=== PATIENT | male | born 1950 | race Caucasian/White ===

== ENCOUNTER → 2017-10-24 15:38 | Outpatient (CLI) | payer MEDICARE, SELFPAY ==
[2017-10-24 16:29] LABS: International Normalized Ratio 2.1
== END ==
PROVIDERS: Family Provider Family Medicine; PCP Family Medicine; Visit Provider Internal Medicine Cardiovascular Disease
DX: I48.0 Paroxysmal atrial fibrillation (principal)
CPT/HCPCS: 85610

== ENCOUNTER → 2017-10-31 15:50 | Outpatient (CLI) | payer MEDICARE, SELFPAY ==
[2017-10-31 16:28] LABS: Calcium,Total 9.7 mg/dL (8.5-10.1)
[2017-10-31 16:35] LABS: International Normalized Ratio 2.1; Prothrombin Time (Protime)PT. 23.1 SECONDS (11.7-14.9)
== END ==
PROVIDERS: Family Provider Family Medicine; PCP Family Medicine; Visit Provider Family Medicine
DX: E83.52 Hypercalcemia (principal); I48.0 Paroxysmal atrial fibrillation
CPT/HCPCS: 82310; 85610

== ENCOUNTER → 2017-11-14 12:33 | Outpatient (CLI) | payer MEDICARE, SELFPAY ==
[2017-11-14 13:43] LABS: International Normalized Ratio 2.4; Prothrombin Time (Protime)PT. 26.1 SECONDS (11.7-14.9)
== END ==
PROVIDERS: Family Provider Family Medicine; PCP Family Medicine; Visit Provider Internal Medicine Cardiovascular Disease
DX: I48.0 Paroxysmal atrial fibrillation (principal)
CPT/HCPCS: 85610

== ENCOUNTER → 2017-11-27 12:12 | Outpatient (CLI) | payer MEDICARE, SELFPAY ==
[2017-11-27 12:32] LABS: Prothrombin Time (Protime)PT. 22.5 SECONDS (11.7-14.9)
== END ==
PROVIDERS: Family Provider Family Medicine; PCP Family Medicine; Visit Provider Internal Medicine Cardiovascular Disease
DX: I48.0 Paroxysmal atrial fibrillation (principal)
CPT/HCPCS: 85610

== ENCOUNTER → 2017-12-12 12:17 | Outpatient (CLI) | payer MEDICARE, SELFPAY ==
[2017-12-12 12:44] LABS: Albumin, Serum 3.6 g/dL (3.2-5.0); BUN 24 mg/dL (7-18); Calcium,Total 9.2 mg/dL (8.5-10.1); Chloride 109 mmol/L (98-107); Creatinine, Serum 1.71 mg/dL (0.70-1.30); EST Glomerular Filtration Rate 43 mL/min (>60); Est Glom Filt Rate - Afr Amer 52 mL/min (>60); Glucose 61 mg/dL (74-106); Phosphorus 2.8 mg/dL (2.5-4.9); Potassium 4.5 mmol/L (3.5-5.1); Sodium Level 142 mmol/L (136-145)
[2017-12-12 12:46] LABS: International Normalized Ratio 3.1; Prothrombin Time (Protime)PT. 32.1 SECONDS (11.7-14.9)
== END ==
PROVIDERS: Family Provider Family Medicine; PCP Family Medicine
DX: N18.3 Chronic kidney disease, stage 3 (moderate) (principal); E83.52 Hypercalcemia; I48.0 Paroxysmal atrial fibrillation
CPT/HCPCS: 80069; 85610

== ENCOUNTER 2018-01-11 05:28 | Observation (INO) | payer MEDICARE, SELFPAY ==
[2018-01-11] VITALS (19 sets, daily range): BP systolic 101–137; BP diastolic 48–77; PULSE 66–80; RESP 16–23; TEMP 36.3–37; O2SAT 95–99; BMI 35.5; BMI 33.6; BMI 33.7
--- NOTE | 2018-01-11 05:49 | EKG12_ITS ---
Test Reason : Blood Pressure : / mmHG Vent. Rate : 068 BPM Atrial Rate : 068 BPM P-R Int : 200 ms QRS Dur : 108 ms QT Int : 422 ms P-R-T Axes : 076 -41 044 degrees QTc Int : 448 ms Normal sinus rhythm Left axis deviation Incomplete left bundle branch block Abnormal ECG Confirmed by OSWALD BESS, STEPHANIE ([id number]), publishing editor BUTCH REED ([id number]) on 01/15/2018 1:59:36 PM Referred By: ARLET Confirmed By:STEPHANIE AKERS MD
--- NOTE | 2018-01-11 05:49 | CT_ITS ---
STUDY: CT BRAIN WITHOUT CONTRAST REASON FOR EXAM: Male, 67 years old. Right-sided weakness, facial droop, slurred speech. History of CVA, diabetes, hypertension and atrial fibrillation. RADIATION DOSAGE (If Supplied By Facility): CTDIvol = ( 44.99 ) mGy, DLP = ( 796.11 ) mGycm TECHNIQUE: Transaxial CT imaging of the brain was performed without administration of intravenous contrast material. Individualized dose optimization techniques were used for this CT. COMPARISON: None. FINDINGS: Normal soft tissue structures. Normal calvarium. There is mild cerebral atrophy with widening of the extra-axial spaces and ventricular dilatation. A focal zone with the decreased attenuation posteriorly in the right frontal lobe is demonstrated, consistent with old infarction. There are areas of decreased attenuation within the white matter tracts of the supratentorial brain, consistent with microvascular disease changes. There is no acute abnormality of the basal ganglia, thalami and brainstem. There is mild cerebellar atrophy. There is no intracranial hemorrhage. There are no findings of an acute ischemic infarction. Dense atherosclerotic calcification of the vertebrobasilar system. There is mucoperiosteal inflammatory disease of the ethmoid air cells consistent with mild sinusitis. CT/Brain/Head without Contrast IMPRESSION: 1. Chronic involutional and ischemic changes of the brain. 2. No acute intracranial pathology demonstrated. If there is continued clinical concern, follow-up with MRI exam is recommended. 3. Mild ethmoid sinusitis. Electronically Signed: Nisha Luna MD at 6:44 EDT Tel , Service support ,
--- NOTE | 2018-01-11 05:54 | ED.VIS.GEN ---
History of Present Illness Chief Complaint: Neuro S/Sx Informant: Patient, Family Onset: Hours - 1-2 Context: Sudden Onset - woke him up (and nearby ) Timing: Intermittent - x1, Lasts - about 1 hour Quality: aphasia, dysarthria, right facial droop, RUE weak Current Severity: Gone Maximum Severity: Severe Worsened by: nothing Relieved by: nothing in particular Narrative: Patient last seen normal at 1 AM, when he and his both fell asleep. He woke up at 355, confused, a phasic, dysarthria, right upper extremity weakness. Symptoms lasted about an hour and are now gone. Similar syndrome about a week ago, for which he was admitted to [facility], but family does not recall the term TIA or stroke. They state that he was taken off of his Coumadin, but think that was more related to the fact that he had a knee replacement 4 or 5 months ago on the right, and he had some abnormal bleeding into that area. He is on Coumadin for chronic atrial fibrillation. He has never had a disabling stroke with permanent effects. He states he feels fine and back to normal now. - Past Medical History (1) HTN (hypertension) Status: Chronic (2) TIA (transient ischemic attack) Status: Chronic (3) Chronic a-fib Status: Chronic (4) CKD (chronic kidney disease) Status: Chronic (5) Osteoarthritis Status: Chronic (6) Chronic low back pain Status: Chronic Past Medical History - Allergies and Home Meds Allergies/Adverse Reactions: Allergies furosemide [From Lasix] Allergy (Verified 01/11/18 05:30) Hives rofecoxib Allergy (Verified 01/11/18 05:30) Hives Home Medications: Home Medications Medication Instructions Recorded Amlodipine [Norvasc] 10 mg PO BID 01/11/18 Ascorbic Acid [Vitamin C with Vivian 500 mg PO BID 01/11/18 Hips] Aspirin [Aspirin EC] 162 mg PO DAILY 01/11/18 Carvedilol [Coreg] 25 mg PO BID 01/11/18 Fenofibrate [Fenoglide] 160 mg PO DAILY 01/11/18 Glipizide [Glucotrol Xl] 5 mg PO BID 01/11/18 Insulin Glargine [Lantus (BKC)] 22 units SC BID 01/11/18 Lovastatin [Mevacor] 40 mg PO QHS 01/11/18 Metformin HCl [Glucophage] 850 mg PO TIDCM 01/11/18 Multivitamin [Multiple Vitamins] 1 each PO DAILY 01/11/18 Quinapril HCl [Accupril] 20 mg PO QHS 01/11/18 Quinapril HCl [Accupril] 40 mg PO DAILY 01/11/18 Primary Care Physician: Lester Jarvis MD [Primary Care Provider] - Surgical History: total knee arthroplasty - bilat Lives: Spouse/ Significant Other Smoking Status: Never smoker Review of Systems All systems negative except as indicated Neurological: Reports: Weakness, - - speech trouble. Denies: Headache, Parasthesia, Numbness Physical Exam Vital Signs/Narrative: Vital Signs Temp Pulse Resp BP Pulse Ox 01/11/18 05:32 97.4 F L 69 23 H 111/59 L 99 Inital Vital Signs reviewed: Yes General: Well nourished, Well developed Head: Normocephalic, Atraumatic Eyes: Perrl, EOMI ENT: Moist mucous membranes, No rhinorrhea Neck: Supple, Nontender, No lymphadenopathy, No JVD, - - No carotid bruits bilaterally Cardiovascular: No murmurs, Irregular. Negative for: Tachycardia Respiratory: No distress, CTA bilaterally, Chest nontender Abdomen: Soft, Nontender, Nondistended, Normal bowel sounds Back: Nontender, Normal Inspection Extremities: Nontender, No edema Skin: Normal color, No rash Neurological: Alert, Oriented x3, Cranial nerves II-XII grossly intact, Normal Strength, Normal Sensation, Normal DTR, - - No aphasia or dysarthria. Correct month and age. No visual field deficit. No ataxia. Total NIHSS-0. Psychological: Normal affect Diagnostic/Tx/Re-eval Impressions Brain CT 01/11/18 05:49 IMPRESSION: 1. Chronic involutional and ischemic changes of the brain. 2. No acute intracranial pathology demonstrated. If there is continued clinical concern, follow-up with MRI exam is recommended. 3. Mild ethmoid sinusitis. Electronically Signed: Nisha Luna MD at 6:44 EDT Tel , Service support , Chest X-Ray 01/11/18 06:15 IMPRESSION: Borderline cardiomegaly and pulmonary interstitial edema, consistent with mild congestive heart failure. Clinical correlation is advised. Electronically Signed: Nisha Luna MD at 6:48 EDT Tel , Service support , 01/11/18 05:49 Brain/Head without Contrast [CT] Stat 01/11/18 06:15 Chest 1 View [RAD] Stat Laboratory Results 01/11/18 01/11/18 01/11/18 Range/Units 05:32 05:32 05:32 WBC 6.7 (4.4-11.0) K/mm3 RBC 2.69 L (4.6-6.2) M/mm3 Hgb 7.7 L (13.0-16.5) g/dl Hct 24.5 L (40-54) % MCV 91.1 (80-94) fL MCH 28.6 (27.0-32.0) pg MCHC 31.4 L (32-36) g/gl RDW 13.6 (11.6-14.6) % RDW Differential 45.5 H (35.1-43.9) fl Plt Count 476 H (150-450) K/mm3 MPV 10.1 (6.2-12.0) fl Immature Gran % (Auto) 0.100 (0.0-0.9) % Neut % (Auto) 80.2 H (47-70) % Lymph % (Auto) 9.0 L (19-41) % [place] % (Auto) 8.5 (0-10) % Eos % (Auto) 1.9 (0-5) % Baso % (Auto) 0.3 (0-1) % Absolute Neuts (auto) 5.4 (2.0-7.7) X10^3/uL Absolute Lymphs (auto) 0.60 L (0.83-4.51) X10^3/ul Total Counted Not Reportable Differential Comment PT 15.4 H (11.7-14.9) SECONDS INR 1.2 APTT 30.7 (24.1-36.2) Seconds Sodium 142 (136-145) mmol/L Potassium 4.7 (3.5-5.1) mmol/L Chloride 109 H (98-107) mmol/L Carbon Dioxide 25.0 (21.0-32.0) mmol/L Anion Gap 8 (5-15) BUN 38 H (7-18) mg/dL Creatinine 1.86 H (0.70-1.30) mg/dL Estim Creat Clear Calc 37.28 ml/min Est GFR (MDRD) Af Amer 47 L (>60) mL/min Est GFR (MDRD) Non-Af 39 L (>60) mL/min BUN/Creatinine Ratio 20.4 H (10-20) RATIO Glucose 92 (74-106) mg/dL Calcium 9.3 (8.5-10.1) mg/dL Troponin I 0.07 H (<0.06) ng/mL - Rhythm Strip Rhythm Strip: A-fib Rate: 85 Ectopy: None - EKG 1 Interpretation: Sinus Rhythm, No Acute Injury Pattern, LBBB - incomplete - Medical Decision Making With observation, patient had no recurrent stroke symptoms. Blood pressure now 137/77. His hemoglobin 7.7. He recently had echocardiogram, carotid Dopplers, we do not know the results of those, we have sent for them but have not received them yet. He states that at that time, a week ago, his hemoglobin was 7.4 and 7.5. He did not receive a blood transfusion. He has had iron infusions in the past, before his knee surgery. Discussed with Dr. Neal for admission, who advises holding off on blood transfusion at this time. Type and screen sent in case he ends up needing one. Will admit to PCU. Of note, his EKG shows sinus rhythm. He does have periods of frequent ectopy on the monitor. ED Disposition - Plan for ED Patient: Disposition: Acute Care Hospital [facility] Chief Complaint: Neuro S/Sx Diagnosis: CKD (chronic kidney disease), TIA (transient ischemic attack), Anemia, Paroxysmal atrial fibrillation
--- NOTE | 2018-01-11 06:02 | ED.DCSUM_ITS ---
History of Present Illness Chief Complaint: Neuro S/Sx Informant: Patient, Family Onset: Hours - 1-2 Context: Sudden Onset - woke him up (and nearby ) Timing: Intermittent - x1, Lasts - about 1 hour Quality: aphasia, dysarthria, right facial droop, RUE weak Current Severity: Gone Maximum Severity: Severe Worsened by: nothing Relieved by: nothing in particular Narrative: Patient last seen normal at 1 AM, when he and his both fell asleep. He woke up at 355, confused, a phasic, dysarthria, right upper extremity weakness. Symptoms lasted about an hour and are now gone. Similar syndrome about a week ago, for which he was admitted to [facility], but family does not recall the term TIA or stroke. They state that he was taken off of his Coumadin , but think that was more related to the fact that he had a knee replacement 4 or 5 months ago on the right, and he had some abnormal bleeding into that area. He is on Coumadin for chronic atrial fibrillation. He has never had a disabling stroke with permanent effects. He states he feels fine and back to normal now. - Past Medical History (1) HTN (hypertension) Status: Chronic (2) TIA (transient ischemic attack) Status: Chronic (3) Chronic a-fib Status: Chronic (4) CKD (chronic kidney disease) Status: Chronic (5) Osteoarthritis Status: Chronic (6) Chronic low back pain Status: Chronic Past Medical History - Allergies and Home Meds Allergies/Adverse Reactions: Allergies furosemide [From Lasix] Allergy (Verified 01/11/18 05:30) Hives rofecoxib Allergy (Verified 01/11/18 05:30) Hives Home Medications: Home Medications Medication Instructions Recorded Amlodipine [Norvasc] 10 mg PO BID 01/11/18 Ascorbic Acid [Vitamin C with Vivian 500 mg PO BID 01/11/18 Hips] Aspirin [Aspirin EC] 162 mg PO DAILY 01/11/18 Carvedilol [Coreg] 25 mg PO BID 01/11/18 Fenofibrate [Fenoglide] 160 mg PO DAILY 01/11/18 Glipizide [Glucotrol Xl] 5 mg PO BID 01/11/18 Insulin Glargine [Lantus (BKC)] 22 units SC BID 01/11/18 Lovastatin [Mevacor] 40 mg PO QHS 01/11/18 Metformin HCl [Glucophage] 850 mg PO TIDCM 01/11/18 Multivitamin [Multiple Vitamins] 1 each PO DAILY 01/11/18 Quinapril HCl [Accupril] 20 mg PO QHS 01/11/18 Quinapril HCl [Accupril] 40 mg PO DAILY 01/11/18 Primary Care Physician: Lester Jarvis MD [Primary Care Provider] - Surgical History: total knee arthroplasty - bilat Lives: Spouse/ Significant Other Smoking Status: Never smoker Review of Systems All systems negative except as indicated Neurological: Reports: Weakness, - - speech trouble. Denies: Headache, Parasthesia, Numbness Physical Exam Vital Signs/Narrative: Vital Signs Temp Pulse Resp BP Pulse Ox 01/11/18 05:32 97.4 F L 69 23 H 111/59 L 99 Inital Vital Signs reviewed: Yes General: Well nourished, Well developed Head: Normocephalic, Atraumatic Eyes: Perrl, EOMI ENT: Moist mucous membranes, No rhinorrhea Neck: Supple, Nontender, No lymphadenopathy, No JVD, - - No carotid bruits bilaterally Cardiovascular: No murmurs, Irregular. Negative for: Tachycardia Respiratory: No distress, CTA bilaterally, Chest nontender Abdomen: Soft, Nontender, Nondistended, Normal bowel sounds Back: Nontender, Normal Inspection Extremities: Nontender, No edema Skin: Normal color, No rash Neurological: Alert, Oriented x3, Cranial nerves II-XII grossly intact, Normal Strength, Normal Sensation, Normal DTR, - - No aphasia or dysarthria. Correct month and age. No visual field deficit. No ataxia. Total NIHSS-0. Psychological: Normal affect Diagnostic/Tx/Re-eval Impressions Brain CT 01/11/18 05:49 IMPRESSION: 1. Chronic involutional and ischemic changes of the brain. 2. No acute intracranial pathology demonstrated. If there is continued clinical concern, follow-up with MRI exam is recommended. 3. Mild ethmoid sinusitis. Electronically Signed: Nisha Luna MD at 6:44 EDT Tel , Service support , Chest X-Ray 01/11/18 06:15 IMPRESSION: Borderline cardiomegaly and pulmonary interstitial edema, consistent with mild congestive heart failure. Clinical correlation is advised. Electronically Signed: Nisha Luna MD at 6:48 EDT Tel , Service support , 01/11/18 05:49 Brain/Head without Contrast [CT] Stat 01/11/18 06:15 Chest 1 View [RAD] Stat Laboratory Results 01/11/18 01/11/18 01/11/18 Range/Units 05:32 05:32 05:32 WBC 6.7 (4.4-11.0) K/mm3 RBC 2.69 L (4.6-6.2) M/mm3 Hgb 7.7 L (13.0-16.5) g/dl Hct 24.5 L (40-54) % MCV 91.1 (80-94) fL MCH 28.6 (27.0-32.0) pg MCHC 31.4 L (32-36) g/gl RDW 13.6 (11.6-14.6) % RDW Differential 45.5 H (35.1-43.9) fl Plt Count 476 H (150-450) K/mm3 MPV 10.1 (6.2-12.0) fl Immature Gran % (Auto) 0.100 (0.0-0.9) % Neut % (Auto) 80.2 H (47-70) % Lymph % (Auto) 9.0 L (19-41) % [place] % (Auto) 8.5 (0-10) % Eos % (Auto) 1.9 (0-5) % Baso % (Auto) 0.3 (0-1) % Absolute Neuts (auto) 5.4 (2.0-7.7) X10^3/uL Absolute Lymphs (auto) 0.60 L (0.83-4.51) X10^3/ul Total Counted Not Reportable Differential Comment PT 15.4 H (11.7-14.9) SECONDS INR 1.2 APTT 30.7 (24.1-36.2) Seconds Sodium 142 (136-145) mmol/L Potassium 4.7 (3.5-5.1) mmol/L Chloride 109 H (98-107) mmol/L Carbon Dioxide 25.0 (21.0-32.0) mmol/L Anion Gap 8 (5-15) BUN 38 H (7-18) mg/dL Creatinine 1.86 H (0.70-1.30) mg/dL Estim Creat Clear Calc 37.28 ml/min Est GFR (MDRD) Af Amer 47 L (>60) mL/min Est GFR (MDRD) Non-Af 39 L (>60) mL/min BUN/Creatinine Ratio 20.4 H (10-20) RATIO Glucose 92 (74-106) mg/dL Calcium 9.3 (8.5-10.1) mg/dL Troponin I 0.07 H (<0.06) ng/mL - Rhythm Strip Rhythm Strip: A-fib Rate: 85 Ectopy: None - EKG 1 Interpretation: Sinus Rhythm, No Acute Injury Pattern, LBBB - incomplete - Medical Decision Making With observation, patient had no recurrent stroke symptoms. Blood pressure now 137/77. His hemoglobin 7.7. He recently had echocardiogram, carotid Dopplers, we do not know the results of those, we have sent for them but have not received them yet. He states that at that time, a week ago, his hemoglobin was 7.4 and 7.5. He did not receive a blood transfusion. He has had iron infusions in the past, before his knee surgery. Discussed with Dr. Neal for admission, who advises holding off on blood transfusion at this time. Type and screen sent in case he ends up needing one. Will admit to PCU. Of note, his EKG shows sinus rhythm. He does have periods of frequent ectopy on the monitor. ED Disposition - Plan for ED Patient: Disposition: Acute Care Hospital [facility] Chief Complaint: Neuro S/Sx Diagnosis: CKD (chronic kidney disease), TIA (transient ischemic attack), Anemia, Paroxysmal atrial fibrillation
[2018-01-11 06:05] LABS: Absolute Neutrophil Count 5.4 X10^3/uL (2.0-7.7); Basophil# 0.02 X10^3/uL; Basophil% 0.3 % (0-1); Differential Indicated SCAN CRITERIA MET; Eosinophil# 0.13 X10^3/uL; Eosinophils% 1.9 % (0-5); Hematocrit 24.5 % (40-54); Hemoglobin 7.7 g/dl (13.0-16.5); Mean Corp Hgb Conc 31.4 g/gl (32-36); Mean Corpuscular Hgb 28.6 pg (27.0-32.0); Mean Corpuscular Volume 91.1 fL (80-94); Mean Platelet Vol. 10.1 fl (6.2-12.0); Monocyte# 0.57 X10^3/uL; Monocyte% 8.5 % (0-10); Neutrophil # 5.36 X10^3/uL (2.7-7.7); Neutrophil % 80.2 % (47-70); POSITIVE COUNT NO; POSITIVE DIFFERENTIAL YES; POSITIVE MORPHOLOGY NO; Platelet Count 476 K/mm3 (150-450); RBC Distribution Width CV 13.6 % (11.6-14.6); RBC Distribution Width SD 45.5 fl (35.1-43.9); Red Blood Count 2.69 M/mm3 (4.6-6.2); White Blood Count 6.7 K/mm3 (4.4-11.0)
--- NOTE | 2018-01-11 06:15 | RAD_ITS ---
STUDY: X-RAY CHEST REASON FOR EXAM: Male, 67 years old. Slurred speech, facial droop, right-sided weakness. TECHNIQUE: Single AP portable view of the chest. COMPARISON: None. FINDINGS: Intraspinal electrode leads are seen below the level of the edmundo. EKG leads overlies the chest. The lungs are adequately expanded. Bilaterally perihilar patchy pulmonary parenchymal interstitial opacities are present. There is a mildly elevated right hemidiaphragm There is borderline cardiomegaly. Normal mediastinum and daniel. There is prominence of the pulmonary hilar arteries and peripheral pulmonary arteries. Normal visualized aortic arch and descending thoracic aorta. Normal visualized ribs, clavicles, and shoulders. There is no demonstrated abnormality of the visualized soft tissue structures of the upper abdomen. RAD/Chest 1 View IMPRESSION: Borderline cardiomegaly and pulmonary interstitial edema, consistent with mild congestive heart failure. Clinical correlation is advised. Electronically Signed: Nisha Luna MD at 6:48 EDT Tel , Service support ,
[2018-01-11 06:17] LABS: International Normalized Ratio 1.2; Prothrombin Time (Protime)PT. 15.4 SECONDS (11.7-14.9)
[2018-01-11 06:18] LABS: Partial Thromboplast Time 30.7 Seconds (24.1-36.2)
[2018-01-11 06:26] LABS: Anion Gap 8 (5-15); BUN 38 mg/dL (7-18); BUN/Creat Ratio 20.4 RATIO (10-20); Calcium,Total 9.3 mg/dL (8.5-10.1); Chloride 109 mmol/L (98-107); Creatinine, Serum 1.86 mg/dL (0.70-1.30); EST Glomerular Filtration Rate 39 mL/min (>60); Est Glom Filt Rate - Afr Amer 47 mL/min (>60); Estimated Creatinine Clearance 37.28 ml/min; Glucose 92 mg/dL (74-106); Potassium 4.7 mmol/L (3.5-5.1); Sodium Level 142 mmol/L (136-145)
--- NOTE | 2018-01-11 07:24 | NURSING ---
DR COOK IN ER
--- NOTE | 2018-01-11 07:51 | PCM.HP.STD ---
Problem List (1) CKD (chronic kidney disease), stage III Status: Acute (2) HTN (hypertension) Status: Chronic (3) TIA (transient ischemic attack) Status: Chronic (4) Osteoarthritis Status: Chronic (5) Chronic low back pain Status: Chronic (6) Anemia Status: Acute (7) Paroxysmal atrial fibrillation Status: Acute History of Present Illness Date of Admission: 01/11/18 Chief Complaint: slurred speech. right sided weakness. The patient is a 67 year old M who is in his normal state of health but awoke this morning with slurred speech and right arm weakness. This happened roughly around 3 AM. Symptoms lasted for an hour then completely resolved. Patient presented to the emergency room and had a workup which was unremarkable. Patient had symptoms similar to this on January 03 and was evaluated at the [facility] by [facility]. Patient underwent an echocardiogram, carotid ultrasound and additional blood work that was unremarkable. Patient was told he was not given a diagnosis and discharged. Patient states that the day before, he had developed some pain in his knee. Actually the pain began 01 January when he is coming back from [place]. Patient denies any injuries or any, trauma to that knee. Patient did have arthrocentesis that showed gelatinous blood. Patient had a CAT scan that was concerning for hemarthrosis. Patient was advised to stay off of his Coumadin. Patient's INR on arrival, according to his , was 2.4. Patient was instructed to stay off of Coumadin given the hemarthrosis. Today patient's INR is 1.2. [] Past Medical History Past Medical History (Chronic Problems): Chronic Problems HTN (hypertension) (Chronic) TIA (transient ischemic attack) (Chronic) Chronic a-fib (Chronic) CKD (chronic kidney disease) (Chronic) Osteoarthritis (Chronic) Chronic low back pain (Chronic) Allergies furosemide [From Lasix] Allergy (Verified 01/11/18 05:30) Hives rofecoxib Allergy (Verified 01/11/18 05:30) Hives Home Medications: Ambulatory Orders Medication Instructions Recorded Amlodipine [Norvasc] 10 mg PO BID 01/11/18 Ascorbic Acid [Vitamin C with Vivian 500 mg PO BID 01/11/18 Hips] Aspirin [Aspirin EC] 162 mg PO DAILY 01/11/18 Carvedilol [Coreg] 25 mg PO BID 01/11/18 Fenofibrate [Fenoglide] 160 mg PO DAILY 01/11/18 Glipizide [Glucotrol Xl] 5 mg PO BID 01/11/18 Insulin Glargine [Lantus (BKC)] 22 units SC BID 01/11/18 Lovastatin [Mevacor] 40 mg PO QHS 01/11/18 Metformin HCl [Glucophage] 850 mg PO TIDCM 01/11/18 Multivitamin [Multiple Vitamins] 1 each PO DAILY 01/11/18 Quinapril HCl [Accupril] 20 mg PO QHS 01/11/18 Quinapril HCl [Accupril] 40 mg PO DAILY 01/11/18 Surgical History: total knee arthroplasty - bilat Psychiatric History: No pertinent psych hx Lives: Spouse/ Significant Other Smoking Status: Never smoker - *Family History Sibling History Items: Stroke Review of Systems Constitutional: Denies: Chills, Fever, Weight Change Eyes: Denies: Blurred vision, Drainage HEENT: Denies: Head Aches, Sinus Congestion, Sinus Drainage Cardiovascular: Denies: Chest Pain, Palpitations Respiratory: Denies: Cough, Shortness of breath at rest, Sputum production Gastrointestinal: Denies: Abdominal Pain, Nausea, Vomiting Genitourinary: Denies: Dysuria Musculoskeletal: Denies: Joint Pain, Joint Tenderness Skin: Denies: Rash, Wounds Neurological: Reports: Slurred speech, Focal weakness Psychiatric: Denies: Anxiety, Depression Endocrine: Denies: Change in Body Habitus Hematologic/ Lymphatic: Reports: Easy Bleeding. Denies: Easy Bruising, Hx of blood clot VTE Information - Inpt Only VTE Present on Admission: No VTE Mechan Device Prophylaxis: SCD's VTE Pharm Prophylaxis ordered?: No Reason prophylaxis not ordered:: Medical Contraindication Patient Problems: Active and Suspected Problems Anemia (Acute) Paroxysmal atrial fibrillation (Acute) CKD (chronic kidney disease), stage III (Acute) - Physical Exam General: Alert, Cooperative, No apparent distress HEENT: Atraumatic, Normocephalic Neck: No Nodes, Thyroid Normal Size and Texture Lungs: Clear to auscultation, Normal air movement, No rhonchi, No wheeze Cardiovascular: Regular rate, Regular Rhythm, Normal S1, Normal S2, No murmurs Abdomen: Bowel Sounds Present, Soft, Non Tender, Non-Distended, No Hepato-splenomegaly, Passing Flatus Extremities: No edema, No Calf Tenderness Skin: No rashes, No breakdown Musculoskeletal: No Muscle Wasting, - - Some tenderness to palpation of the right knee. Minimal joint effusion. No warmth. Neurological: Cranial nerves II-XII grossly intact, Neuro grossly intact, Motor Exam 5/5 strength throughout Psych/Mental Status: Normal Affect, Appropriate Vital Signs Temp Pulse Resp BP Pulse Ox 37.0 C 70 17 137/77 H 98 01/11/18 06:57 01/11/18 07:09 01/11/18 07:09 01/11/18 07:09 01/11/18 07:09 Oxygen Flow Rate (L/min) 2 Oxygen Delivery Method Room Air Weight: 106 kg Body Mass Index (BMI) 35.5 Finger Stick Blood Glucose 78 Laboratory Tests Past 24 Hrs 01/11/18 01/11/18 01/11/18 05:32 05:32 05:32 WBC 6.7 RBC 2.69 L Hgb 7.7 L Hct 24.5 L MCV 91.1 MCH 28.6 MCHC 31.4 L RDW 13.6 RDW Differential 45.5 H Plt Count 476 H MPV 10.1 Immature Gran % (Auto) 0.100 Neut % (Auto) 80.2 H Lymph % (Auto) 9.0 L [place] % (Auto) 8.5 Eos % (Auto) 1.9 Baso % (Auto) 0.3 Absolute Neuts (auto) 5.4 Absolute Lymphs (auto) 0.60 L Total Counted Not Reportable Differential Comment PT 15.4 H INR 1.2 APTT 30.7 Sodium 142 Potassium 4.7 Chloride 109 H Carbon Dioxide 25.0 Anion Gap 8 BUN 38 H Creatinine 1.86 H Estim Creat Clear Calc 37.28 Est GFR (MDRD) Af Amer 47 L Est GFR (MDRD) Non-Af 39 L BUN/Creatinine Ratio 20.4 H Glucose 92 Calcium 9.3 Troponin I 0.07 H Blood Type Antibody Screen 01/11/18 07:25 WBC RBC Hgb Hct MCV MCH MCHC RDW RDW Differential Plt Count MPV Immature Gran % (Auto) Neut % (Auto) Lymph % (Auto) [place] % (Auto) Eos % (Auto) Baso % (Auto) Absolute Neuts (auto) Absolute Lymphs (auto) Total Counted Differential Comment PT INR APTT Sodium Potassium Chloride Carbon Dioxide Anion Gap BUN Creatinine Estim Creat Clear Calc Est GFR (MDRD) Af Amer Est GFR (MDRD) Non-Af BUN/Creatinine Ratio Glucose Calcium Troponin I Blood Type Pending Antibody Screen Pending Clinical Impression(s) from Imaging Studies Brain CT 01/11/18 05:49 IMPRESSION: 1. Chronic involutional and ischemic changes of the brain. 2. No acute intracranial pathology demonstrated. If there is continued clinical concern, follow-up with MRI exam is recommended. 3. Mild ethmoid sinusitis. Electronically Signed: Nisha Luna MD at 6:44 EDT Tel , Service support , Chest X-Ray 01/11/18 06:15 IMPRESSION: Borderline cardiomegaly and pulmonary interstitial edema, consistent with mild congestive heart failure. Clinical correlation is advised. Electronically Signed: Nisha Luna MD at 6:48 EDT Tel , Service support , Patient had carotid ultrasound performed at [facility] that showed no significant stenosis. Echocardiogram performed there showed an ejection fraction of 50%. Assessment/Plan Active and Suspected Problems Anemia (Acute) Paroxysmal atrial fibrillation (Acute) CKD (chronic kidney disease), stage III (Acute) 1. Transient ischemic attack The possibilities could be atypical seizures patient was not having headache with this. Patient has already undergone a workup at [facility] for this very issue and which came back negative except for showing an old lacunar infarct. Patient does have paroxysmal atrial fibrillation and was actually on Coumadin when he arrived with an INR of 2.4. Patient has been subsequently taken off of his Coumadin given the hemarthrosis that he had developed. Patient is on aspirin and lovastatin. Will do neuro checks, have bedside swallow evaluation and consult neurology for further evaluation. Patient is not a candidate for MRIs given spinal stimulator nor is he a candidate for CT angiogram given his chronic kidney disease 2. Hemarthrosis, right knee Story the patient provides, sounds atraumatic. But certainly exacerbated by his Coumadin if it was therapeutic or not. Patient has been advised to stay off of Coumadin at this time Patient has a follow-up appointment with his orthopedic surgeon on 23 January 3. Paroxysmal atrial fibrillation I reviewed the patient's echo report on the patient's 's MyChart and did not see any obvious valvular abnormalities that would prohibit novel 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s. Patient follows with Dr. Perez and patient states that that was never discussed. 4. DVT prophylaxis: SCDs. Code Visit OBSV E&M: [id number] Initial observation care L3
--- NOTE | 2018-01-11 07:53 | NURSING ---
121 TIA OBS JOYCE
--- NOTE | 2018-01-11 08:00 | HP.PCM_ITS ---
Problem List (1) CKD (chronic kidney disease), stage III Status: Acute (2) HTN (hypertension) Status: Chronic (3) TIA (transient ischemic attack) Status: Chronic (4) Osteoarthritis Status: Chronic (5) Chronic low back pain Status: Chronic (6) Anemia Status: Acute (7) Paroxysmal atrial fibrillation Status: Acute History of Present Illness Date of Admission: 01/11/18 Chief Complaint: slurred speech. right sided weakness. The patient is a 67 year old M who is in his normal state of health but awoke this morning with slurred speech and right arm weakness. This happened roughly around 3 AM. Symptoms lasted for an hour then completely resolved. Patient presented to the emergency room and had a workup which was unremarkable. Patient had symptoms similar to this on January 03 and was evaluated at the [facility] by [facility]. Patient underwent an echocardiogram, carotid ultrasound and additional blood work that was unremarkable. Patient was told he was not given a diagnosis and discharged. Patient states that the day before, he had developed some pain in his knee. Actually the pain began 01 January when he is coming back from [place]. Patient denies any injuries or any, trauma to that knee. Patient did have arthrocentesis that showed gelatinous blood. Patient had a CAT scan that was concerning for hemarthrosis. Patient was advised to stay off of his Coumadin. Patient's INR on arrival, according to his , was 2.4. Patient was instructed to stay off of Coumadin given the hemarthrosis. Today patient's INR is 1.2. [] Past Medical History Past Medical History (Chronic Problems): Chronic Problems HTN (hypertension) (Chronic) TIA (transient ischemic attack) (Chronic) Chronic a-fib (Chronic) CKD (chronic kidney disease) (Chronic) Osteoarthritis (Chronic) Chronic low back pain (Chronic) Allergies furosemide [From Lasix] Allergy (Verified 01/11/18 05:30) Hives rofecoxib Allergy (Verified 01/11/18 05:30) Hives Home Medications: Ambulatory Orders Medication Instructions Recorded Amlodipine [Norvasc] 10 mg PO BID 01/11/18 Ascorbic Acid [Vitamin C with Vivian 500 mg PO BID 01/11/18 Hips] Aspirin [Aspirin EC] 162 mg PO DAILY 01/11/18 Carvedilol [Coreg] 25 mg PO BID 01/11/18 Fenofibrate [Fenoglide] 160 mg PO DAILY 01/11/18 Glipizide [Glucotrol Xl] 5 mg PO BID 01/11/18 Insulin Glargine [Lantus (BKC)] 22 units SC BID 01/11/18 Lovastatin [Mevacor] 40 mg PO QHS 01/11/18 Metformin HCl [Glucophage] 850 mg PO TIDCM 01/11/18 Multivitamin [Multiple Vitamins] 1 each PO DAILY 01/11/18 Quinapril HCl [Accupril] 20 mg PO QHS 01/11/18 Quinapril HCl [Accupril] 40 mg PO DAILY 01/11/18 Surgical History: total knee arthroplasty - bilat Psychiatric History: No pertinent psych hx Lives: Spouse/ Significant Other Smoking Status: Never smoker - *Family History Sibling History Items: Stroke Review of Systems Constitutional: Denies: Chills, Fever, Weight Change Eyes: Denies: Blurred vision, Drainage HEENT: Denies: Head Aches, Sinus Congestion, Sinus Drainage Cardiovascular: Denies: Chest Pain, Palpitations Respiratory: Denies: Cough, Shortness of breath at rest, Sputum production Gastrointestinal: Denies: Abdominal Pain, Nausea, Vomiting Genitourinary: Denies: Dysuria Musculoskeletal: Denies: Joint Pain, Joint Tenderness Skin: Denies: Rash, Wounds Neurological: Reports: Slurred speech, Focal weakness Psychiatric: Denies: Anxiety, Depression Endocrine: Denies: Change in Body Habitus Hematologic/ Lymphatic: Reports: Easy Bleeding. Denies: Easy Bruising, Hx of blood clot VTE Information - Inpt Only VTE Present on Admission: No VTE Mechan Device Prophylaxis: SCD's VTE Pharm Prophylaxis ordered?: No Reason prophylaxis not ordered:: Medical Contraindication Patient Problems: Active and Suspected Problems Anemia (Acute) Paroxysmal atrial fibrillation (Acute) CKD (chronic kidney disease), stage III (Acute) - Physical Exam General: Alert, Cooperative, No apparent distress HEENT: Atraumatic, Normocephalic Neck: No Nodes, Thyroid Normal Size and Texture Lungs: Clear to auscultation, Normal air movement, No rhonchi, No wheeze Cardiovascular: Regular rate, Regular Rhythm, Normal S1, Normal S2, No murmurs Abdomen: Bowel Sounds Present, Soft, Non Tender, Non-Distended, No Hepato- splenomegaly, Passing Flatus Extremities: No edema, No Calf Tenderness Skin: No rashes, No breakdown Musculoskeletal: No Muscle Wasting, - - Some tenderness to palpation of the right knee. Minimal joint effusion. No warmth. Neurological: Cranial nerves II-XII grossly intact, Neuro grossly intact, Motor Exam 5/5 strength throughout Psych/Mental Status: Normal Affect, Appropriate Vital Signs Temp Pulse Resp BP Pulse Ox 37.0 C 70 17 137/77 H 98 01/11/18 06:57 01/11/18 07:09 01/11/18 07:09 01/11/18 07:09 01/11/18 07:09 Oxygen Flow Rate (L/min) 2 Oxygen Delivery Method Room Air Weight: 106 kg Body Mass Index (BMI) 35.5 Finger Stick Blood Glucose 78 Laboratory Tests Past 24 Hrs 01/11/18 01/11/18 01/11/18 05:32 05:32 05:32 WBC 6.7 RBC 2.69 L Hgb 7.7 L Hct 24.5 L MCV 91.1 MCH 28.6 MCHC 31.4 L RDW 13.6 RDW Differential 45.5 H Plt Count 476 H MPV 10.1 Immature Gran % (Auto) 0.100 Neut % (Auto) 80.2 H Lymph % (Auto) 9.0 L [place] % (Auto) 8.5 Eos % (Auto) 1.9 Baso % (Auto) 0.3 Absolute Neuts (auto) 5.4 Absolute Lymphs (auto) 0.60 L Total Counted Not Reportable Differential Comment PT 15.4 H INR 1.2 APTT 30.7 Sodium 142 Potassium 4.7 Chloride 109 H Carbon Dioxide 25.0 Anion Gap 8 BUN 38 H Creatinine 1.86 H Estim Creat Clear Calc 37.28 Est GFR (MDRD) Af Amer 47 L Est GFR (MDRD) Non-Af 39 L BUN/Creatinine Ratio 20.4 H Glucose 92 Calcium 9.3 Troponin I 0.07 H Blood Type Antibody Screen 01/11/18 07:25 WBC RBC Hgb Hct MCV MCH MCHC RDW RDW Differential Plt Count MPV Immature Gran % (Auto) Neut % (Auto) Lymph % (Auto) Morgan % (Auto) Eos % (Auto) Baso % (Auto) Absolute Neuts (auto) Absolute Lymphs (auto) Total Counted Differential Comment PT INR APTT Sodium Potassium Chloride Carbon Dioxide Anion Gap BUN Creatinine Estim Creat Clear Calc Est GFR (MDRD) Af Amer Est GFR (MDRD) Non-Af BUN/Creatinine Ratio Glucose Calcium Troponin I Blood Type Pending Antibody Screen Pending Clinical Impression(s) from Imaging Studies Brain CT 01/11/18 05:49 IMPRESSION: 1. Chronic involutional and ischemic changes of the brain. 2. No acute intracranial pathology demonstrated. If there is continued clinical concern, follow-up with MRI exam is recommended. 3. Mild ethmoid sinusitis. Electronically Signed: Nisha Luna MD at 6:44 EDT Tel , Service support , Chest X-Ray 01/11/18 06:15 IMPRESSION: Borderline cardiomegaly and pulmonary interstitial edema, consistent with mild congestive heart failure. Clinical correlation is advised. Electronically Signed: Nisha Luna MD at 6:48 EDT Tel , Service support , Patient had carotid ultrasound performed at [facility] that showed no significant stenosis. Echocardiogram performed there showed an ejection fraction of 50%. Assessment/Plan Active and Suspected Problems Anemia (Acute) Paroxysmal atrial fibrillation (Acute) CKD (chronic kidney disease), stage III (Acute) 1. Transient ischemic attack * The possibilities could be atypical seizures patient was not having headache with this. * Patient has already undergone a workup at [facility] for this very issue and which came back negative except for showing an old lacunar infarct. * Patient does have paroxysmal atrial fibrillation and was actually on Coumadin when he arrived with an INR of 2.4. Patient has been subsequently taken off of his Coumadin given the hemarthrosis that he had developed. * Patient is on aspirin and lovastatin. * Will do neuro checks, have bedside swallow evaluation and consult neurology for further evaluation. * Patient is not a candidate for MRIs given spinal stimulator nor is he a candidate for CT angiogram given his chronic kidney disease 2. Hemarthrosis, right knee * Story the patient provides, sounds atraumatic. But certainly exacerbated by his Coumadin if it was therapeutic or not. * Patient has been advised to stay off of Coumadin at this time * Patient has a follow-up appointment with his orthopedic surgeon on 23 January 3. Paroxysmal atrial fibrillation * I reviewed the patient's echo report on the patient's 's MyChart and did not see any obvious valvular abnormalities that would prohibit novel 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s. Patient follows with Dr. Perez and patient states that that was never discussed. 4. DVT prophylaxis: SCDs. Code Visit OBSV E&M: [id number] Initial observation care L3
[2018-01-11] MEDS: Ascorbic Acid 500 MG Tablet PO ×2 (09:48→21:42)
[2018-01-11] MEDS: Lisinopril 40 MG Tablet PO (09:48)
[2018-01-11] MEDS: Fenofibrate 145 MG Tablet PO (09:48)
[2018-01-11] MEDS: amLODIPine 10 MG Tablet PO ×2 (09:48→21:42)
[2018-01-11] MEDS: Aspirin E.C. 81 MG Tablet 162 MG PO (09:49)
[2018-01-11] MEDS: Multivitamins,Therapeutic Tablet 1 TABLET PO (09:49)
[2018-01-11] MEDS: Carvedilol 25 MG Tablet PO ×2 (09:49→21:42)
[2018-01-11] MEDS: Glucerna Shake 120 ML LIQUID PO (09:51)
[2018-01-11 11:11] LABS: Bedside Glucose 62 mg/dL (70-110)
[2018-01-11 11:11] LABS: Bedside Glucose 52 mg/dL (70-110)
[2018-01-11 11:11] LABS: Bedside Glucose 88 mg/dL (70-110)
[2018-01-11 16:45] LABS: Bedside Glucose 117 mg/dL (70-110)
[2018-01-11] MEDS: glipiZIDE 5 MG Tablet PO (16:46)
[2018-01-11] MEDS: 0.9% NaCl Peripheral Flush Adult/Peds IV (21:42)
[2018-01-11] MEDS: Lisinopril 20 MG Tablet PO (21:43)
[2018-01-11] MEDS: Atorvastatin Calcium 10 MG Tablet PO (21:43)
[2018-01-11 23:16] LABS: Bedside Glucose 66 mg/dL (70-110)
[2018-01-11 23:16] LABS: Bedside Glucose 65 mg/dL (70-110)
[2018-01-11 23:16] LABS: Bedside Glucose 66 mg/dL (70-110)
[2018-01-12 00:12] LABS: Glucose 70 mg/dL (74-106)
[2018-01-12 00:20] VITALS: BP 112/66; PULSE 74; RESP 18; TEMP 37; O2SAT 95
[2018-01-12 00:27] VITALS: O2SAT 95
[2018-01-12 03:00] VITALS: PULSE 72
[2018-01-12 04:20] VITALS: BP 124/63; PULSE 73; RESP 20; TEMP 36.9; O2SAT 97
[2018-01-12 04:26] LABS: Bedside Glucose 106 mg/dL (70-110)
[2018-01-12 06:50] LABS: Bedside Glucose 143 mg/dL (70-110)
[2018-01-12 07:02] VITALS: PULSE 74
[2018-01-12 07:20] LABS: Hematocrit 23.6 % (40-54); Hemoglobin 7.3 g/dl (13.0-16.5); Mean Corp Hgb Conc 30.9 g/gl (32-36); Mean Corpuscular Hgb 28.5 pg (27.0-32.0); Mean Corpuscular Volume 92.2 fL (80-94); Mean Platelet Vol. 10.8 fl (6.2-12.0); Platelet Count 446 K/mm3 (150-450); RBC Distribution Width CV 13.1 % (11.6-14.6); RBC Distribution Width SD 42.5 fl (35.1-43.9); Red Blood Count 2.56 M/mm3 (4.6-6.2); White Blood Count 5.9 K/mm3 (4.4-11.0)
[2018-01-12 07:21] LABS: Scan Indicated on CBC? Y/N NO
[2018-01-12 07:37] LABS: Anion Gap 9 (5-15); BUN 33 mg/dL (7-18); BUN/Creat Ratio 18.9 RATIO (10-20); Chloride 111 mmol/L (98-107); Creatinine, Serum 1.75 mg/dL (0.70-1.30); EST Glomerular Filtration Rate 41 mL/min (>60); Est Glom Filt Rate - Afr Amer 50 mL/min (>60); Estimated Creatinine Clearance 40.96 ml/min; Glucose 128 mg/dL (74-106); Potassium 4.6 mmol/L (3.5-5.1); Sodium Level 143 mmol/L (136-145)
[2018-01-12 08:20] VITALS: BP 122/54; PULSE 73; RESP 16; TEMP 36.7; O2SAT 96
[2018-01-12] MEDS: glipiZIDE 5 MG Tablet PO (08:26)
[2018-01-12] MEDS: Aspirin E.C. 81 MG Tablet 162 MG PO (08:27)
[2018-01-12] MEDS: Multivitamins,Therapeutic Tablet 1 TABLET PO (08:27)
[2018-01-12] MEDS: Carvedilol 25 MG Tablet PO (08:27)
[2018-01-12] MEDS: amLODIPine 10 MG Tablet PO (08:28)
[2018-01-12] MEDS: Ascorbic Acid 500 MG Tablet PO (08:29)
[2018-01-12] MEDS: Lisinopril 40 MG Tablet PO (08:29)
[2018-01-12] MEDS: Fenofibrate 145 MG Tablet PO (08:29)
--- NOTE | 2018-01-12 10:11 | PCM.PN.HOSP ---
Patient Problems: Active and Suspected Problems Anemia (Acute) Paroxysmal atrial fibrillation (Acute) CKD (chronic kidney disease), stage III (Acute) Subjective: . Denies any new complaints at this time. Vitals/I&O's: Vital Signs Temp Pulse Resp BP Pulse Ox 36.7 C 73 16 122/54 H 96 01/12/18 08:20 01/12/18 08:20 01/12/18 08:20 01/12/18 08:20 01/12/18 08:20 Oxygen Delivery Method Room Air Weight: 103.4 kg Body Mass Index (BMI) 33.6 Intake and Output for Last 24 Hours 01/10/18 01/11/18 01/12/18 23:59 23:59 23:59 Intake Total 1290 / 1290 680 / 680 Output Total 920 / 920 500 / 500 Balance 370 / 370 180 / 180 General: Alert, Cooperative, No apparent distress HEENT: Atraumatic, Normocephalic Neurological: Motor Exam 5/5 strength throughout Laboratory Results 01/11/18 08:51: POC Glucose 52 L 01/11/18 09:45: POC Glucose 62 L 01/11/18 11:04: POC Glucose 88 01/11/18 16:41: POC Glucose 117 H 01/11/18 21:38: POC Glucose 65 L 01/11/18 22:36: POC Glucose 66 L 01/11/18 23:12: POC Glucose 66 L 01/11/18 23:43: Glucose 70 L 01/12/18 04:06: POC Glucose 106 01/12/18 06:18: Sodium 143, Potassium 4.6, Chloride 111 H, Carbon Dioxide 23.0, Anion Gap 9, BUN 33 H, Creatinine 1.75 H, Estim Creat Clear Calc 40.96, Est GFR (MDRD) Af Amer 50 L, Est GFR (MDRD) Non-Af 41 L, BUN/Creatinine Ratio 18.9, Glucose 128 H, Calcium 9.0 01/12/18 06:18: WBC 5.9, RBC 2.56 L, Hgb 7.3 L, Hct 23.6 L, MCV 92.2, MCH 28.5, MCHC 30.9 L, RDW 13.1, RDW Differential 42.5, Plt Count 446, MPV 10.8 01/12/18 06:43: POC Glucose 143 H Current Medications Acetaminophen (Tylenol) 650 mg PO Q4H PRN PRN PRN Reason: Headache/Temp>99F Acetaminophen (Tylenol) 650 mg RECTAL Q4H PRN PRN PRN Reason: Headache/Temp>99F Amlodipine Besylate (Norvasc) 10 mg PO BID [facility] Last Admin: 01/12/18 08:28 Dose: 10 mg Ascorbic Acid (Vitamin C) 500 mg PO BID [facility] Last Admin: 01/12/18 08:29 Dose: 500 mg Aspirin (Ecotrin) 162 mg PO DAILY [facility] Last Admin: 01/12/18 08:27 Dose: 162 mg Atorvastatin Calcium (Lipitor) 10 mg PO QHS [facility] Last Admin: 01/11/18 21:43 Dose: 10 mg Carvedilol (Coreg) 25 mg PO BID [facility] Last Admin: 01/12/18 08:27 Dose: 25 mg Fenofibrate (Tricor) 145 mg PO DAILY [facility] Last Admin: 01/12/18 08:29 Dose: 145 mg Insulin Detemir (Levemir (Bkc)) 22 units SC BID [facility] Last Admin: 01/12/18 08:27 Dose: 22 u Lisinopril (Zestril) 20 mg PO QHS [facility] Last Admin: 01/11/18 21:43 Dose: 20 mg Lisinopril (Zestril) 40 mg PO DAILY [facility] Last Admin: 01/12/18 08:29 Dose: 40 mg Magnesium Hydroxide (Milk Of Magnesia) 30 ml PO DAILY PRN PRN Reason: Constipation Multivitamins (Multivitamin) 1 tablet PO DAILY@0800 [facility] Last Admin: 01/12/18 08:27 Dose: 1 tablet Sodium Chloride () 5 - 30 ml IV UD PRN PRN Reason: SALINE FLUSH Last Admin: 01/11/18 21:42 Dose: 10 ml Medical Necessity - Tobacco Use Smoking Status: Never smoker Assessment/Plan Active and Suspected Problems Anemia (Acute) Paroxysmal atrial fibrillation (Acute) CKD (chronic kidney disease), stage III (Acute) 1. Suspected symptomatic hypoglycemia Reviewed the limited medical records from the [facility]. From what I could tell the patient was having issues with hypoglycemia at home and patient did note that his blood sugar did drop down to 37 on January 03. In that they did a workup. Per that workup saw that he had an old stroke and so they further work that up with an echocardiogram and carotid ultrasound which were both negative. Patient since being here has had low blood sugars in the 50s and 60s. Is my feeling that the symptoms are probably hypoglycemic related. Of note, patient's INR was 3.1 when he presented to [facility] by [facility]. Patient had a subtherapeutic INR because he is actually not been taking his Coumadin given the hemarthrosis of his right knee. I have advised the patient to resume Coumadin. Patient will have INR checks later on this week and then next week. The possibilities could be atypical seizures patient was not having headache with this. Patient is not a candidate for MRIs given spinal stimulator nor is he a candidate for CT angiogram given his chronic kidney disease 2. Hemarthrosis, right knee Story the patient provides, sounds atraumatic. But certainly exacerbated by his Coumadin if it was therapeutic or not. Patient has been advised to stay off of Coumadin at this time Patient has a follow-up appointment with his orthopedic surgeon on 23 January 3. Paroxysmal atrial fibrillation I reviewed the patient's echo report on the patient's 's MyChart and did not see any obvious valvular abnormalities that would prohibit novel 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s. Patient follows with Dr. Perez and patient states that that was never discussed. Given the hemarthrosis that the patient has a would recommend Coumadin for now just for reversal if deemed necessary. 4. Chronic stroke Noted on CAT scan from [place] Continue with aspirin and statin. Additionally continue with anticoagulation. Going back on Coumadin would recommend changing aspirin to 81 daily. Since the patient's bleeding has stopped I feel that the risks of not being on Coumadin outweigh the benefits at this time. I have instructed the patient to resume Coumadin. 5. Diabetes mellitus type II And noted hypoglycemia. I feel that the oral hypoglycemics are contributing to this and I would recommend the patient just continue with just the Levemir for now. Is not an ideal regiment understandably but I feel that the risk of further hypoglycemia with the oral agents outweigh the benefits of strict glycemic control. I have I recommend patient follow-up with his primary care doctor in regards to pursuing possible prandial dosings of NovoLog if necessary depending on how his blood sugars return clerk. 6. DVT prophylaxis: SCDs.
--- NOTE | 2018-01-12 10:19 | PN_ITS ---
Patient Problems: Active and Suspected Problems Anemia (Acute) Paroxysmal atrial fibrillation (Acute) CKD (chronic kidney disease), stage III (Acute) Subjective: . Denies any new complaints at this time. Vitals/I&O's: Vital Signs Temp Pulse Resp BP Pulse Ox 36.7 C 73 16 122/54 H 96 01/12/18 08:20 01/12/18 08:20 01/12/18 08:20 01/12/18 08:20 01/12/18 08:20 Oxygen Delivery Method Room Air Weight: 103.4 kg Body Mass Index (BMI) 33.6 Intake and Output for Last 24 Hours 01/10/18 01/11/18 01/12/18 23:59 23:59 23:59 Intake Total 1290 / 1290 680 / 680 Output Total 920 / 920 500 / 500 Balance 370 / 370 180 / 180 General: Alert, Cooperative, No apparent distress HEENT: Atraumatic, Normocephalic Neurological: Motor Exam 5/5 strength throughout Laboratory Results 01/11/18 08:51: POC Glucose 52 L 01/11/18 09:45: POC Glucose 62 L 01/11/18 11:04: POC Glucose 88 01/11/18 16:41: POC Glucose 117 H 01/11/18 21:38: POC Glucose 65 L 01/11/18 22:36: POC Glucose 66 L 01/11/18 23:12: POC Glucose 66 L 01/11/18 23:43: Glucose 70 L 01/12/18 04:06: POC Glucose 106 01/12/18 06:18: Sodium 143, Potassium 4.6, Chloride 111 H, Carbon Dioxide 23.0, Anion Gap 9, BUN 33 H, Creatinine 1.75 H, Estim Creat Clear Calc 40.96, Est GFR (MDRD) Af Amer 50 L, Est GFR (MDRD) Non-Af 41 L, BUN/Creatinine Ratio 18.9, Glucose 128 H, Calcium 9.0 01/12/18 06:18: WBC 5.9, RBC 2.56 L, Hgb 7.3 L, Hct 23.6 L, MCV 92.2, MCH 28.5, MCHC 30.9 L, RDW 13.1, RDW Differential 42.5, Plt Count 446, MPV 10.8 01/12/18 06:43: POC Glucose 143 H Current Medications Acetaminophen (Tylenol) 650 mg PO Q4H PRN PRN PRN Reason: Headache/Temp>99F Acetaminophen (Tylenol) 650 mg RECTAL Q4H PRN PRN PRN Reason: Headache/Temp>99F Amlodipine Besylate (Norvasc) 10 mg PO BID FORMERLY [facility], [facility]1983 Last Admin: 01/12/18 08:28 Dose: 10 mg Ascorbic Acid (Vitamin C) 500 mg PO BID FOR[facility], [facility] Last Admin: 01/12/18 08:29 Dose: 500 mg Aspirin (Ecotrin) 162 mg PO DAILY FOR[facility], [facility] Last Admin: 01/12/18 08:27 Dose: 162 mg Atorvastatin Calcium (Lipitor) 10 mg PO QHS FOR[facility], [facility] Last Admin: 01/11/18 21:43 Dose: 10 mg Carvedilol (Coreg) 25 mg PO BID [facility], [facility] Last Admin: 01/12/18 08:27 Dose: 25 mg Fenofibrate (Tricor) 145 mg PO DAILY FOR[facility], [facility] Last Admin: 01/12/18 08:29 Dose: 145 mg Insulin Detemir (Levemir (Bkc)) 22 units SC BID FORMERLY [facility], [facility]1983 Last Admin: 01/12/18 08:27 Dose: 22 u Lisinopril (Zestril) 20 mg PO QHS FOR[facility], [facility] Last Admin: 01/11/18 21:43 Dose: 20 mg Lisinopril (Zestril) 40 mg PO DAILY [facility] Last Admin: 01/12/18 08:29 Dose: 40 mg Magnesium Hydroxide (Milk Of Magnesia) 30 ml PO DAILY PRN PRN Reason: Constipation Multivitamins (Multivitamin) 1 tablet PO DAILY@0800 [facility] Last Admin: 01/12/18 08:27 Dose: 1 tablet Sodium Chloride () 5 - 30 ml IV UD PRN PRN Reason: SALINE FLUSH Last Admin: 01/11/18 21:42 Dose: 10 ml Medical Necessity - Tobacco Use Smoking Status: Never smoker Assessment/Plan Active and Suspected Problems Anemia (Acute) Paroxysmal atrial fibrillation (Acute) CKD (chronic kidney disease), stage III (Acute) 1. Suspected symptomatic hypoglycemia * Reviewed the limited medical records from the [facility]. From what I could tell the patient was having issues with hypoglycemia at home and patient did note that his blood sugar did drop down to 37 on January 03. In that they did a workup. Per that workup saw that he had an old stroke and so they further work that up with an echocardiogram and carotid ultrasound which were both negative. Patient since being here has had low blood sugars in the 50s and 60s. Is my feeling that the symptoms are probably hypoglycemic related. Of note, patient's INR was 3.1 when he presented to [facility] by Maryana. Patient had a subtherapeutic INR because he is actually not been taking his Coumadin given the hemarthrosis of his right knee. * I have advised the patient to resume Coumadin. Patient will have INR checks later on this week and then next week. * The possibilities could be atypical seizures patient was not having headache with this. * Patient is not a candidate for MRIs given spinal stimulator nor is he a candidate for CT angiogram given his chronic kidney disease 2. Hemarthrosis, right knee * Story the patient provides, sounds atraumatic. But certainly exacerbated by his Coumadin if it was therapeutic or not. * Patient has been advised to stay off of Coumadin at this time * Patient has a follow-up appointment with his orthopedic surgeon on 23 January 3. Paroxysmal atrial fibrillation * I reviewed the patient's echo report on the patient's 's MyChart and did not see any obvious valvular abnormalities that would prohibit novel 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s. Patient follows with Dr. Perez and patient states that that was never discussed. * Given the hemarthrosis that the patient has a would recommend Coumadin for now just for reversal if deemed necessary. 4. Chronic stroke * Noted on CAT scan from [place] * Continue with aspirin and statin. Additionally continue with anticoagulation. * Going back on Coumadin would recommend changing aspirin to 81 daily. * Since the patient's bleeding has stopped I feel that the risks of not being on Coumadin outweigh the benefits at this time. I have instructed the patient to resume Coumadin. 5. Diabetes mellitus type II * And noted hypoglycemia. I feel that the oral hypoglycemics are contributing to this and I would recommend the patient just continue with just the Levemir for now. Is not an ideal regiment understandably but I feel that the risk of further hypoglycemia with the oral agents outweigh the benefits of strict glycemic control. * I have I recommend patient follow-up with his primary care doctor in regards to pursuing possible prandial dosings of NovoLog if necessary depending on how his blood sugars return agent. 6. DVT prophylaxis: SCDs.
--- NOTE | 2018-01-12 10:25 | DCINST_ITS ---
- Discharge Diagnoses Current Active Problems: Current Active and Chronic Problems HTN (hypertension) (Chronic) TIA (transient ischemic attack) (Chronic) Chronic a-fib (Chronic) CKD (chronic kidney disease) (Chronic) Osteoarthritis (Chronic) Chronic low back pain (Chronic) Anemia (Acute) Paroxysmal atrial fibrillation (Acute) CKD (chronic kidney disease), stage III (Acute) You will use the following diet at home:: Calorie/Carbohydrate Controlled ( specify 1200, 1400, etc) - 1800 Your food should be the consistency of: Regular Your liquids should be the consistency of: Regular/Thin Discharge Activity: - - weight bearing as tolerated to right leg. wear stabilization brace Call your doctor if you observe: Fever of 101 or Higher, Numbness or Tingling, - - worsening knee pain. Slurred speach Allergies/Adverse Reactions: Allergies furosemide [From Lasix] Allergy (Verified 01/11/18 05:30) Hives rofecoxib Allergy (Verified 01/11/18 05:30) Hives Medications to take at Discharge Amlodipine [Norvasc] 10 mg PO BID 01/11/18 Ascorbic Acid [Vitamin C with Vivian Hips] 500 mg PO BID 01/11/18 Aspirin [Aspirin EC] 162 mg PO DAILY 01/11/18 Carvedilol [Coreg] 25 mg PO BID 01/11/18 Fenofibrate [Fenoglide] 160 mg PO DAILY 01/11/18 Insulin Glargine [Lantus SoloStar Pen] 22 units SC BID 01/11/18 Lovastatin [Mevacor] 40 mg PO QHS 01/11/18 Multivitamin [Multiple Vitamins] 1 each PO DAILY 01/11/18 Quinapril HCl [Accupril] 20 mg PO QHS 01/11/18 Quinapril HCl [Accupril] 40 mg PO DAILY 01/11/18 Warfarin [Coumadin (PBKC)] 5 mg PO DAILY #30 tab 01/12/18 The following prescriptions were given: Warfarin [Coumadin (PBKC)] 5 mg PO DAILY #30 tab Orders to be completed after discharge: Glucometer Location: None Selected Primary Care Physician: Lester Jarvis MD [Primary Care Provider] - Within 2 Weeks Please Follow Up With: Orthopaedics When: January 23 Proposed Discharge Date: 01/12/18
--- NOTE | 2018-01-12 10:25 | PCM.DC.SUM ---
Discharge Date and Diagnosis - Problem List Patient Problems: Active and Suspected Problems Anemia (Acute) Paroxysmal atrial fibrillation (Acute) CKD (chronic kidney disease), stage III (Acute) Slurred speech (Acute) Hypoglycemia (Acute) Date of Admission: 01/11/18 Date of Discharge: 01/12/18 - Primary Discharge Diagnosis Active and Suspected Problems Anemia (Acute) Paroxysmal atrial fibrillation (Acute) CKD (chronic kidney disease), stage III (Acute) - Secondary Discharge Diagnosis Chronic Problems HTN (hypertension) (Chronic) TIA (transient ischemic attack) (Chronic) Chronic a-fib (Chronic) CKD (chronic kidney disease) (Chronic) Osteoarthritis (Chronic) Chronic low back pain (Chronic) Hospital Course and Treatment Imaging Results: Clinical Impression(s) from Imaging Studies Brain CT 01/11/18 05:49 IMPRESSION: 1. Chronic involutional and ischemic changes of the brain. 2. No acute intracranial pathology demonstrated. If there is continued clinical concern, follow-up with MRI exam is recommended. 3. Mild ethmoid sinusitis. Electronically Signed: Nisha Luna MD at 6:44 EDT Tel , Service support , Chest X-Ray 01/11/18 06:15 IMPRESSION: Borderline cardiomegaly and pulmonary interstitial edema, consistent with mild congestive heart failure. Clinical correlation is advised. Electronically Signed: Nisha Luna MD at 6:48 EDT Tel , Service support , Operations: None Procedures: None Summary of Care Provided: The patient is a 67 year old M presents with slurred speech and right-sided weakness. 1. Suspected symptomatic hypoglycemia Reviewed the limited medical records from the [facility]. From what I could tell the patient was having issues with hypoglycemia at home and patient did note that his blood sugar did drop down to 37 on January 03. In that they did a workup. Per that workup saw that he had an old stroke and so they further work that up with an echocardiogram and carotid ultrasound which were both negative. Patient since being here has had low blood sugars in the 50s and 60s. Is my feeling that the symptoms are probably hypoglycemic related. Of note, patient's INR was 3.1 when he presented to [facility] by Maryana. Patient had a subtherapeutic INR because he is actually not been taking his Coumadin given the hemarthrosis of his right knee. I have advised the patient to resume Coumadin. Patient will have INR checks later on this week and then next week. The possibilities could be atypical seizures patient was not having headache with this. Patient is not a candidate for MRIs given spinal stimulator nor is he a candidate for CT angiogram given his chronic kidney disease 2. Hemarthrosis, right knee Story the patient provides, sounds atraumatic. But certainly exacerbated by his Coumadin if it was therapeutic or not. Patient has been advised to stay off of Coumadin at this time Patient has a follow-up appointment with his orthopedic surgeon on 23 January 3. Paroxysmal atrial fibrillation I reviewed the patient's echo report on the patient's 's MyChart and did not see any obvious valvular abnormalities that would prohibit novel 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s. Patient follows with Dr. Perez and patient states that that was never discussed. Given the hemarthrosis that the patient has a would recommend Coumadin for now just for reversal if deemed necessary. 4. Chronic stroke Noted on CAT scan from [place] Continue with aspirin and statin. Additionally continue with anticoagulation. Going back on Coumadin would recommend changing aspirin to 81 daily. Since the patient's bleeding has stopped I feel that the risks of not being on Coumadin outweigh the benefits at this time. I have instructed the patient to resume Coumadin. 5. Diabetes mellitus type II And noted hypoglycemia. I feel that the oral hypoglycemics are contributing to this and I would recommend the patient just continue with just the Levemir for now. Is not an ideal regiment understandably but I feel that the risk of further hypoglycemia with the oral agents outweigh the benefits of strict glycemic control. 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 wear stabilization brace Call your doctor if you observe: Fever of 101 or Higher, Numbness or Tingling, - - worsening knee pain. Slurred speach Home Medications: Medications to take at Discharge Amlodipine [Norvasc] 10 mg PO BID 01/11/18 Ascorbic Acid [Vitamin C with Vivian Hips] 500 mg PO BID 01/11/18 Aspirin [Aspirin EC] 162 mg PO DAILY 01/11/18 Carvedilol [Coreg] 25 mg PO BID 01/11/18 Fenofibrate [Fenoglide] 160 mg PO DAILY 01/11/18 Insulin Glargine [Lantus SoloStar Pen] 22 units SC BID 01/11/18 Lovastatin [Mevacor] 40 mg PO QHS 01/11/18 Multivitamin [Multiple Vitamins] 1 each PO DAILY 01/11/18 Quinapril HCl [Accupril] 20 mg PO QHS 01/11/18 Quinapril HCl [Accupril] 40 mg PO DAILY 01/11/18 Warfarin [Coumadin (PBKC)] 5 mg PO DAILY #30 tab 01/12/18 Following Prescrptions Were Given to Patient: Warfarin [Coumadin (PBKC)] 5 mg PO DAILY #30 tab Other Amb Orders: Glucometer Location: None Selected Primary Care Physician: Lester Jarvis MD [Primary Care Provider] - Within 2 Weeks Please Follow Up With: Orthopaedics When: January 23 Disposition: Home Minutes spent on discharge:: 35 Patient Condition:: Good Medical Necessity - Tobacco Use Smoking Status: Never smoker Meaningful Use Info Meaningful Use Diagnoses (Choose all that apply): None applicable Code Visit OBSV E&M: 71398 Observation care discharge
--- NOTE | 2018-01-12 10:28 | DS.PCM_ITS ---
Discharge Date and Diagnosis - Problem List Patient Problems: Active and Suspected Problems Anemia (Acute) Paroxysmal atrial fibrillation (Acute) CKD (chronic kidney disease), stage III (Acute) Slurred speech (Acute) Hypoglycemia (Acute) Date of Admission: 01/11/18 Date of Discharge: 01/12/18 - Primary Discharge Diagnosis Active and Suspected Problems Anemia (Acute) Paroxysmal atrial fibrillation (Acute) CKD (chronic kidney disease), stage III (Acute) - Secondary Discharge Diagnosis Chronic Problems HTN (hypertension) (Chronic) TIA (transient ischemic attack) (Chronic) Chronic a-fib (Chronic) CKD (chronic kidney disease) (Chronic) Osteoarthritis (Chronic) Chronic low back pain (Chronic) Hospital Course and Treatment Imaging Results: Clinical Impression(s) from Imaging Studies Brain CT 01/11/18 05:49 IMPRESSION: 1. Chronic involutional and ischemic changes of the brain. 2. No acute intracranial pathology demonstrated. If there is continued clinical concern, follow-up with MRI exam is recommended. 3. Mild ethmoid sinusitis. Electronically Signed: Nisha Luna MD at 6:44 EDT Tel , Service support , Chest X-Ray 01/11/18 06:15 IMPRESSION: Borderline cardiomegaly and pulmonary interstitial edema, consistent with mild congestive heart failure. Clinical correlation is advised. Electronically Signed: Nisha Luna MD at 6:48 EDT Tel , Service support , Operations: None Procedures: None Summary of Care Provided: The patient is a 67 year old M presents with slurred speech and right-sided weakness. 1. Suspected symptomatic hypoglycemia * Reviewed the limited medical records from the [facility]. From what I could tell the patient was having issues with hypoglycemia at home and patient did note that his blood sugar did drop down to 37 on January 03. In that they did a workup. Per that workup saw that he had an old stroke and so they further work that up with an echocardiogram and carotid ultrasound which were both negative. Patient since being here has had low blood sugars in the 50s and 60s. Is my feeling that the symptoms are probably hypoglycemic related. Of note, patient's INR was 3.1 when he presented to [facility] by Maryana. Patient had a subtherapeutic INR because he is actually not been taking his Coumadin given the hemarthrosis of his right knee. * I have advised the patient to resume Coumadin. Patient will have INR checks later on this week and then next week. * The possibilities could be atypical seizures patient was not having headache with this. * Patient is not a candidate for MRIs given spinal stimulator nor is he a candidate for CT angiogram given his chronic kidney disease 2. Hemarthrosis, right knee * Story the patient provides, sounds atraumatic. But certainly exacerbated by his Coumadin if it was therapeutic or not. * Patient has been advised to stay off of Coumadin at this time * Patient has a follow-up appointment with his orthopedic surgeon on 23 January 3. Paroxysmal atrial fibrillation * I reviewed the patient's echo report on the patient's 's MyChart and did not see any obvious valvular abnormalities that would prohibit novel 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s. Patient follows with Dr. Perez and patient states that that was never discussed. * Given the hemarthrosis that the patient has a would recommend Coumadin for now just for reversal if deemed necessary. 4. Chronic stroke * Noted on CAT scan from [place] * Continue with aspirin and statin. Additionally continue with anticoagulation. * Going back on Coumadin would recommend changing aspirin to 81 daily. * Since the patient's bleeding has stopped I feel that the risks of not being on Coumadin outweigh the benefits at this time. I have instructed the patient to resume Coumadin. 5. Diabetes mellitus type II * And noted hypoglycemia. I feel that the oral hypoglycemics are contributing to this and I would recommend the patient just continue with just the Levemir for now. Is not an ideal regiment understandably but I feel that the risk of further hypoglycemia with the oral agents outweigh the benefits of strict glycemic control. 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 wear stabilization brace Call your doctor if you observe: Fever of 101 or Higher, Numbness or Tingling, - - worsening knee pain. Slurred speach Home Medications: Medications to take at Discharge Amlodipine [Norvasc] 10 mg PO BID 01/11/18 Ascorbic Acid [Vitamin C with Vivian Hips] 500 mg PO BID 01/11/18 Aspirin [Aspirin EC] 162 mg PO DAILY 01/11/18 Carvedilol [Coreg] 25 mg PO BID 01/11/18 Fenofibrate [Fenoglide] 160 mg PO DAILY 01/11/18 Insulin Glargine [Lantus SoloStar Pen] 22 units SC BID 01/11/18 Lovastatin [Mevacor] 40 mg PO QHS 01/11/18 Multivitamin [Multiple Vitamins] 1 each PO DAILY 01/11/18 Quinapril HCl [Accupril] 20 mg PO QHS 01/11/18 Quinapril HCl [Accupril] 40 mg PO DAILY 01/11/18 Warfarin [Coumadin (PBKC)] 5 mg PO DAILY #30 tab 01/12/18 Following Prescrptions Were Given to Patient: Warfarin [Coumadin (PBKC)] 5 mg PO DAILY #30 tab Other Amb Orders: Glucometer Location: None Selected Primary Care Physician: Lester Jarvis MD [Primary Care Provider] - Within 2 Weeks Please Follow Up With: Orthopaedics When: January 23 Disposition: Home Minutes spent on discharge:: 35 Patient Condition:: Good Medical Necessity - Tobacco Use Smoking Status: Never smoker Meaningful Use Info Meaningful Use Diagnoses (Choose all that apply): None applicable Code Visit OBSV E&M: 44158 Observation care discharge
[2018-01-12 15:31] LABS: Bedside Glucose 78 mg/dL (70-110)
== END 2018-01-12 10:25 | disposition home or self-care (01) ==
LOC: ED 07:17 → PCU 07:59
PROVIDERS: Emergency Provider Emergency Medicine; Family Provider Family Medicine; PCP Family Medicine
DX: E11.22 Type 2 diabetes mellitus with diabetic chronic kidney disease (principal); I12.9 Hypertensive chronic kidney disease with stage 1 through stage 4 chronic kidney disease, or unspecified chronic kidney disease; N18.3 Chronic kidney disease, stage 3 (moderate); E11.649 Type 2 diabetes mellitus with hypoglycemia without coma; I48.0 Paroxysmal atrial fibrillation; R47.81 Slurred speech; R53.1 Weakness; M25.061 Hemarthrosis, right knee; D64.9 Anemia, unspecified; R47.01 Aphasia; R47.1 Dysarthria and anarthria; R29.810 Facial weakness; R41.0 Disorientation, unspecified; G89.29 Other chronic pain; M54.5 Low back pain; M19.90 Unspecified osteoarthritis, unspecified site; Z79.01 Long term (current) use of 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s; Z86.73 Personal history of transient ischemic attack (TIA), and cerebral infarction without residual deficits; Z79.899 Other long term (current) drug therapy; Z79.82 Long term (current) use of aspirin
CPT/HCPCS: 36415; 70450; 71045; 80048; 82947; 82962; 84484; 85025; 85027; 85610; 85730; 86850; 86900; 93005; 96360; 97162; 97165; 97802; 99218; 99285; J7030; J7040; A4216; G0378

== ENCOUNTER → 2018-01-20 15:21 | Outpatient (CLI) | payer MEDICARE, SELFPAY ==
[2018-01-20 15:41] LABS: Prothrombin Time (Protime)PT. 22.8 SECONDS (11.7-14.9)
[2018-01-20 15:47] LABS: Absolute Neutrophil Count 4.8 X10^3/uL (2.0-7.7); Basophil# 0.02 X10^3/uL; Basophil% 0.3 % (0-1); Eosinophil# 0.16 X10^3/uL; Eosinophils% 2.6 % (0-5); Hematocrit 23.6 % (40-54); Hemoglobin 7.3 g/dl (13.0-16.5); Lymphocyte % 6.5 % (19-41); Mean Corp Hgb Conc 30.9 g/gl (32-36); Mean Corpuscular Hgb 27.8 pg (27.0-32.0); Mean Corpuscular Volume 89.7 fL (80-94); Mean Platelet Vol. 10.8 fl (6.2-12.0); Monocyte# 0.76 X10^3/uL; Monocyte% 12.4 % (0-10); Platelet Count 463 K/mm3 (150-450); RBC Distribution Width CV 13.5 % (11.6-14.6); RBC Distribution Width SD 44.5 fl (35.1-43.9); Red Blood Count 2.63 M/mm3 (4.6-6.2); White Blood Count 6.2 K/mm3 (4.4-11.0)
[2018-01-20 15:51] LABS: Differential Indicated SCAN CRITERIA MET; POSITIVE COUNT NO; POSITIVE DIFFERENTIAL YES; POSITIVE MORPHOLOGY NO
[2018-01-20 15:57] LABS: Iron 18 ug/dL (65-175); Iron Binding Capacity,Total 428 ug/dL (250-450)
[2018-01-20 16:25] LABS: Anisocytosis RARE; Hypochromasia 1+; Platelet Estimate SLT INC (ADEQ)
== END ==
PROVIDERS: Family Provider Family Medicine; PCP Family Medicine; Visit Provider Internal Medicine Cardiovascular Disease
DX: I48.0 Paroxysmal atrial fibrillation (principal); D64.9 Anemia, unspecified
CPT/HCPCS: 83540; 83550; 85025; 85610

== ENCOUNTER → 2018-01-24 13:05 | Outpatient (CLI) | payer MEDICARE, SELFPAY ==
[2018-01-24 13:34] LABS: International Normalized Ratio 2.3; Prothrombin Time (Protime)PT. 25.2 SECONDS (11.7-14.9)
== END ==
PROVIDERS: Visit Provider Internal Medicine Cardiovascular Disease
DX: I48.0 Paroxysmal atrial fibrillation (principal)
CPT/HCPCS: 85610

== ENCOUNTER → 2018-01-28 16:06 | Outpatient (CLI) | payer MEDICARE, SELFPAY ==
[2018-01-28 16:23] LABS: Absolute Lymphocyte Count 0.45 X10^3/ul (0.83-4.51); Absolute Neutrophil Count 4.1 X10^3/uL (2.0-7.7); Basophil# 0.02 X10^3/uL; Basophil% 0.4 % (0-1); Eosinophil# 0.27 X10^3/uL; Hematocrit 24.1 % (40-54); Hemoglobin 7.5 g/dl (13.0-16.5); Lymphocyte # 0.45 X10^3/ul (4.0); Lymphocyte % 8.3 % (19-41); Mean Corp Hgb Conc 31.1 g/gl (32-36); Mean Corpuscular Hgb 27.5 pg (27.0-32.0); Mean Corpuscular Volume 88.3 fL (80-94); Mean Platelet Vol. 10.8 fl (6.2-12.0); Monocyte# 0.58 X10^3/uL; Monocyte% 10.7 % (0-10); Neutrophil # 4.08 X10^3/uL (2.7-7.7); Neutrophil % 75.6 % (47-70); Platelet Count 375 K/mm3 (150-450); RBC Distribution Width CV 13.6 % (11.6-14.6); RBC Distribution Width SD 43.7 fl (35.1-43.9); Red Blood Count 2.73 M/mm3 (4.6-6.2); White Blood Count 5.4 K/mm3 (4.4-11.0)
[2018-01-28 16:24] LABS: Anion Gap 7 (5-15); BUN 29 mg/dL (7-18); BUN/Creat Ratio 14.1 RATIO (10-20); Calcium,Total 8.8 mg/dL (8.5-10.1); Chloride 108 mmol/L (98-107); Creatinine, Serum 2.05 mg/dL (0.70-1.30); EST Glomerular Filtration Rate 35 mL/min (>60); Est Glom Filt Rate - Afr Amer 42 mL/min (>60); Glucose 167 mg/dL (74-106); Iron 31 ug/dL (65-175); Iron Binding Capacity,Total 427 ug/dL (250-450); Potassium 4.5 mmol/L (3.5-5.1); Sodium Level 140 mmol/L (136-145)
[2018-01-28 16:27] LABS: Differential Indicated SCAN CRITERIA MET; POSITIVE COUNT NO; POSITIVE DIFFERENTIAL YES; POSITIVE MORPHOLOGY NO
[2018-01-28 17:21] LABS: Platelet Estimate ADEQUATE (ADEQ); Platelet Morphology GIANT
[2018-01-28 17:22] LABS: Differential Comment SCANNED; Poikilocytosis RARE
== END ==
PROVIDERS: Family Provider Family Medicine; PCP Family Medicine; Visit Provider Family Medicine
DX: D50.8 Other iron deficiency anemias (principal); I12.9 Hypertensive chronic kidney disease with stage 1 through stage 4 chronic kidney disease, or unspecified chronic kidney disease; N18.3 Chronic kidney disease, stage 3 (moderate)
CPT/HCPCS: 80048; 83540; 83550; 85025

== ENCOUNTER → 2018-02-12 13:55 | Outpatient (CLI) | payer MEDICARE, SELFPAY ==
--- NOTE | 2018-02-12 13:55 | DT_ITS ---
This patient was seen during an EMR downtime February 10, 2018 - February 17, 2018. This patient may have a combination of paper and electronic documentation or all paper documentation. All documentation is viewable within the e-chart portion of [employer] for each patient visit.
[2018-02-17 13:31] LABS: Hematocrit 25.3 % (40-54); Hemoglobin 7.5 g/dl (13.0-16.5); Mean Corp Hgb Conc 29.6 g/gl (32-36); Mean Corpuscular Hgb 26.7 pg (27.0-32.0); Mean Platelet Vol. 11.7 fl (6.2-12.0); POSITIVE COUNT NO; POSITIVE DIFFERENTIAL NO; POSITIVE MORPHOLOGY NO; Platelet Count 393 K/mm3 (150-450); RBC Distribution Width CV 13.8 % (11.6-14.6); Red Blood Count 2.81 M/mm3 (4.6-6.2); White Blood Count 6.2 K/mm3 (4.4-11.0)
[2018-02-17 13:32] LABS: Absolute Lymphocyte Count 0.47 X10^3/ul (0.83-4.51); Absolute Neutrophil Count 4.8 X10^3/uL (2.0-7.7); Basophil% 0.2 % (0-1); Erythrocyte Sedimentation Rate 66 mm/hr (0-20); International Normalized Ratio 2.5; Lymphocyte # 0.47 X10^3/ul (4.0); Lymphocyte % 7.5 % (19-41); Monocyte% 12.8 % (0-10); Neutrophil # 4.75 X10^3/uL (2.7-7.7); Neutrophil % 76.3 % (47-70); Platelet Estimate ADEQUATE (ADEQ); Prothrombin Time (Protime)PT. 27.3 SECONDS (11.7-14.9)
[2018-02-17 13:33] LABS: ALB/GLOB Ratio 0.8 RATIO (0.9-2.4); AST(SGOT) 15 U/L (15-37); Alanine Aminotransfer ALT/SGPT 13 U/L (16-61); Albumin, Serum 3.4 g/dL (3.2-5.0); Alkaline Phosphatase 37 U/L (45-117); Anion Gap 9 (5-15); BUN 30 mg/dL (7-18); BUN/Creat Ratio 16.2 RATIO (10-20); Calcium,Total 9.1 mg/dL (8.5-10.1); Chloride 106 mmol/L (98-107); Creatinine, Serum 1.85 mg/dL (0.70-1.30); EST Glomerular Filtration Rate 39 mL/min (>60); Est Glom Filt Rate - Afr Amer 47 mL/min (>60); Globulin 4.2 g/dL (2.2-4.2); Glucose 173 mg/dL (74-106); Potassium 4.3 mmol/L (3.5-5.1); Protein, Total 7.6 g/dL (6.4-8.2); Sodium Level 140 mmol/L (136-145)
== END ==
PROVIDERS: Family Provider Family Medicine; PCP Family Medicine; Visit Provider Family Medicine
DX: D50.8 Other iron deficiency anemias (principal); I48.0 Paroxysmal atrial fibrillation; R60.9 Edema, unspecified; I10 Essential (primary) hypertension; M25.461 Effusion, right knee; Z96.651 Presence of right artificial knee joint
CPT/HCPCS: 80053; 85025; 85610; 85652; 86140

== ENCOUNTER → 2018-03-11 15:30 | Outpatient (CLI) | payer MEDICARE, SELFPAY ==
[2018-03-11 16:10] LABS: International Normalized Ratio 2.7; Prothrombin Time (Protime)PT. 28.9 SECONDS (11.7-14.9)
== END ==
PROVIDERS: Family Provider Family Medicine; PCP Family Medicine; Visit Provider Internal Medicine Cardiovascular Disease
DX: I48.0 Paroxysmal atrial fibrillation (principal)
CPT/HCPCS: 85610

== ENCOUNTER → 2018-04-15 16:47 | Outpatient (CLI) | payer MEDICARE, SELFPAY | PROVIDERS: Family Provider Family Medicine; Visit Provider Internal Medicine Hematology & Oncology | DX: N18.3 Chronic kidney disease, stage 3 (moderate) (principal); D64.9 Anemia, unspecified ==

== ENCOUNTER → 2018-04-15 18:13 | Outpatient (CLI) | payer MEDICARE, SELFPAY ==
[2018-04-15 18:46] LABS: Immature Platelet Fraction 2.3 % (1.0-7.9); RET-HE 24.7 pg (30-35); Reticulocyte Count 0.78 % (0.5-1.5)
[2018-04-15 19:45] LABS: Ferritin 210 ng/mL (26-388); Iron 26 ug/dL (65-175); Iron Binding Capacity,Total 424 ug/dL (250-450)
[2018-04-16 09:41] LABS: Vitamin B12 671 pg/mL (211-911)
== END ==
PROVIDERS: Family Provider Family Medicine; Visit Provider Internal Medicine Hematology & Oncology
DX: N18.3 Chronic kidney disease, stage 3 (moderate) (principal); D64.9 Anemia, unspecified
CPT/HCPCS: 82607; 82728; 82746; 83540; 83550; 83921; 85045

== ENCOUNTER → 2018-05-17 11:40 | Outpatient (CLI) | payer MEDICARE, SELFPAY ==
[2018-05-17 12:16] LABS: Anion Gap 9 (5-15); BUN 34 mg/dL (7-18); BUN/Creat Ratio 18.7 RATIO (10-20); Calcium,Total 9.6 mg/dL (8.5-10.1); Chloride 106 mmol/L (98-107); Cholesterol 130 mg/dL (200); Creatinine, Serum 1.82 mg/dL (0.70-1.30); EST Glomerular Filtration Rate 40 mL/min (>60); Est Glom Filt Rate - Afr Amer 48 mL/min (>60); Glucose 61 mg/dL (74-106); High Density Lipoprotein 31 mg/dL; Iron 53 ug/dL (65-175); Iron Binding Capacity,Total 397 ug/dL (250-450); Potassium 4.1 mmol/L (3.5-5.1); Sodium Level 143 mmol/L (136-145); Triglycerides 58 mg/dL; Very Low Density Lipoprotein 12 mg/dL (5-40)
[2018-05-17 12:20] LABS: Absolute Lymphocyte Count 0.56 X10^3/ul (0.83-4.51); Absolute Neutrophil Count 3.3 X10^3/uL (2.0-7.7); Basophil# 0.02 X10^3/uL; Basophil% 0.4 % (0-1); Eosinophils% 6.3 % (0-5); Hematocrit 29.7 % (40-54); Hemoglobin 9.2 g/dl (13.0-16.5); Lymphocyte # 0.56 X10^3/ul (4.0); Lymphocyte % 11.8 % (19-41); Mean Corpuscular Hgb 25.5 pg (27.0-32.0); Mean Corpuscular Volume 82.3 fL (80-94); Mean Platelet Vol. 11.9 fl (6.2-12.0); Monocyte# 0.59 X10^3/uL; Monocyte% 12.5 % (0-10); Neutrophil # 3.26 X10^3/uL (2.7-7.7); Platelet Count 305 K/mm3 (150-450); RBC Distribution Width CV 17.4 % (11.6-14.6); RBC Distribution Width SD 50.9 fl (35.1-43.9); Red Blood Count 3.61 M/mm3 (4.6-6.2); White Blood Count 4.7 K/mm3 (4.4-11.0)
[2018-05-17 12:21] LABS: Differential Indicated SCAN CRITERIA MET; International Normalized Ratio 2.4; POSITIVE COUNT NO; POSITIVE DIFFERENTIAL YES; POSITIVE MORPHOLOGY NO; Prothrombin Time (Protime)PT. 26.1 SECONDS (11.7-14.9)
[2018-05-17 12:26] LABS: Microalbumin,Random Urine 59.2 mg/L (NO RANGE EST.); Microalbumin:Creatinine Ratio 85.3 mg/g CRE (<30 mg/g CRE)
== END ==
PROVIDERS: Family Provider Family Medicine; PCP Family Medicine
DX: I48.0 Paroxysmal atrial fibrillation (principal); D50.8 Other iron deficiency anemias; E11.29 Type 2 diabetes mellitus with other diabetic kidney complication; R80.9 Proteinuria, unspecified; Z79.4 Long term (current) use of insulin; E78.2 Mixed hyperlipidemia; E11.3219 Type 2 diabetes mellitus with mild nonproliferative diabetic retinopathy with macular edema, unspecified eye; E11.22 Type 2 diabetes mellitus with diabetic chronic kidney disease; I12.9 Hypertensive chronic kidney disease with stage 1 through stage 4 chronic kidney disease, or unspecified chronic kidney disease; N18.3 Chronic kidney disease, stage 3 (moderate)
CPT/HCPCS: 36415; 80048; 80061; 82043; 82570; 83036; 83540; 83550; 85025; 85610

== ENCOUNTER → 2018-06-02 15:52 | Outpatient (CLI) | payer MEDICARE, SELFPAY ==
[2018-06-02 16:42] LABS: International Normalized Ratio 2.6; Prothrombin Time (Protime)PT. 27.7 SECONDS (11.7-14.9)
== END ==
PROVIDERS: Family Provider Family Medicine; PCP Family Medicine; Visit Provider Internal Medicine Cardiovascular Disease
DX: I48.0 Paroxysmal atrial fibrillation (principal)
CPT/HCPCS: 85610

== ENCOUNTER → 2018-10-24 08:23 | Outpatient (CLI) | payer MEDICARE, SELFPAY ==
[2018-10-24 10:11] LABS: Hematocrit 33.2 % (40-54); Hemoglobin 10.4 g/dl (13.0-16.5); Mean Corp Hgb Conc 31.3 g/gl (32-36); Mean Corpuscular Hgb 28.1 pg (27.0-32.0); Mean Corpuscular Volume 89.7 fL (80-94); Mean Platelet Vol. 11.9 fl (6.2-12.0); Platelet Count 268 K/mm3 (150-450); RBC Distribution Width CV 13.9 % (11.6-14.6); RBC Distribution Width SD 44.4 fl (35.1-43.9); White Blood Count 6.8 K/mm3 (4.4-11.0)
[2018-10-24 10:12] LABS: Scan Indicated on CBC? Y/N NO
[2018-10-24 10:23] LABS: Protein, Urine (Random) 28.8 mg/dL (<11.9); Protein:Creat Ratio 429 mg/g CRE (0-200)
[2018-10-24 10:45] LABS: PTHIN 21.5 pg/mL (18.4-80.1)
[2018-10-24 10:47] LABS: Vitamin D,25 Hydroxy 28.6 ng/mL (29.95-100.01)
[2018-10-24 10:53] LABS: BUN 33 mg/dL (7-18); Creatinine, Serum 2.12 mg/dL (0.70-1.30); Glucose 98 mg/dL (74-106)
[2018-10-24 10:54] LABS: Albumin, Serum 3.7 g/dL (3.2-5.0); BUN/Creat Ratio 15.6 RATIO (10-20); Calcium,Total 9.1 mg/dL (8.5-10.1); Chloride 104 mmol/L (98-107); EST Glomerular Filtration Rate 33 mL/min (>60); Est Glom Filt Rate - Afr Amer 40 mL/min (>60); Phosphorus 3.4 mg/dL (2.5-4.9); Potassium 4.1 mmol/L (3.5-5.1); Sodium Level 139 mmol/L (136-145)
== END ==
PROVIDERS: Family Provider Family Medicine; PCP Family Medicine; Referring Provider Internal Medicine Nephrology; Visit Provider Internal Medicine Nephrology
DX: N18.3 Chronic kidney disease, stage 3 (moderate) (principal)
CPT/HCPCS: 36415; 80069; 82306; 82570; 83970; 84156; 85027

== ENCOUNTER → 2018-11-14 10:50 | Outpatient (CLI) | payer MEDICARE, SELFPAY ==
[2018-11-14 11:05] LABS: Bacteria 0 SEEN /hpf (None Seen); Mucous, Urine 0 SEEN /hpf (<or=2+); Red Blood Cells-Urine 0 SEEN /hpf (0-5); Squamous Epithelial Cells - UA 0 SEEN /hpf (0-5); White Blood Cells 0 SEEN /hpf (0-5)
[2018-11-14 11:13] LABS: Color, Urine Yellow (Yellow); Glucose, Dipstick Normal (Normal); Ketone-Dipstick Negative (Negative); Leukocyte Esterase-Dipstick Negative /ul (Negative); Nitrite-Dipstick Negative (Negative); Occult Blood-Urine Negative /ul (Negative); Protein-Dipstick 30 mg/dl (Negative); Specific Gravity, Urine 1.015 (1.002-1.030); Urine Bilirubin Dipstick Negative (Negative); Urine Clarity Clear (Clear); Urine Urobilinogen Normal (Normal)
[2018-11-14 11:15] LABS: Absolute Lymphocyte Count 0.66 X10^3/ul (0.83-4.51); Absolute Neutrophil Count 4.5 X10^3/uL (2.0-7.7); Basophil# 0.01 X10^3/uL; Basophil% 0.2 % (0-1); Eosinophil# 0.19 X10^3/uL; Eosinophils% 2.9 % (0-5); Hematocrit 34.7 % (40-54); Hemoglobin 10.9 g/dl (13.0-16.5); Lymphocyte # 0.66 X10^3/ul (4.0); Lymphocyte % 10.2 % (19-41); Mean Corp Hgb Conc 31.4 g/gl (32-36); Mean Corpuscular Hgb 27.7 pg (27.0-32.0); Mean Corpuscular Volume 88.3 fL (80-94); Monocyte# 1.08 X10^3/uL; Monocyte% 16.7 % (0-10); Neutrophil % 69.8 % (47-70); Platelet Count 294 K/mm3 (150-450); RBC Distribution Width CV 13.9 % (11.6-14.6); RBC Distribution Width SD 44.9 fl (35.1-43.9); Red Blood Count 3.93 M/mm3 (4.6-6.2); White Blood Count 6.5 K/mm3 (4.4-11.0)
[2018-11-14 11:17] LABS: POSITIVE COUNT NO; POSITIVE DIFFERENTIAL NO; POSITIVE MORPHOLOGY NO
[2018-11-14 11:30] LABS: Microalbumin:Creatinine Ratio 169.3 mg/g CRE (<30 mg/g CRE)
[2018-11-14 11:32] LABS: Hemoglobin A1c 7.1 % (4.2-6.3)
[2018-11-14 11:42] LABS: ALB/GLOB Ratio 0.9 RATIO (0.9-2.4); AST(SGOT) 23 U/L (15-37); Alanine Aminotransfer ALT/SGPT 24 U/L (16-61); Albumin, Serum 3.8 g/dL (3.2-5.0); Alkaline Phosphatase 46 U/L (45-117); Anion Gap 10 (5-15); BUN 37 mg/dL (7-18); BUN/Creat Ratio 17.6 RATIO (10-20); Calcium,Total 8.9 mg/dL (8.5-10.1); Chloride 106 mmol/L (98-107); Cholesterol 130 mg/dL (200); EST Glomerular Filtration Rate 34 mL/min (>60); Est Glom Filt Rate - Afr Amer 41 mL/min (>60); Globulin 4.3 g/dL (2.2-4.2); Glucose 42 mg/dL (74-106); High Density Lipoprotein 35 mg/dL; Iron 61 ug/dL (65-175); Iron Binding Capacity,Total 426 ug/dL (250-450); Magnesium 2.3 mg/dL (1.6-2.6); PSA,Total- Diagnostic 0.73 ng/mL (0.0-4.0); Potassium 3.9 mmol/L (3.5-5.1); Protein, Total 8.1 g/dL (6.4-8.2); Sodium Level 140 mmol/L (136-145); Triglycerides 73 mg/dL; Very Low Density Lipoprotein 15 mg/dL (5-40)
== END ==
PROVIDERS: Family Provider Family Medicine; PCP Family Medicine; Referring Provider Family Medicine; Visit Provider Family Medicine
DX: E11.3219 Type 2 diabetes mellitus with mild nonproliferative diabetic retinopathy with macular edema, unspecified eye (principal); E11.29 Type 2 diabetes mellitus with other diabetic kidney complication; Z79.4 Long term (current) use of insulin; R80.9 Proteinuria, unspecified; D50.8 Other iron deficiency anemias; E78.2 Mixed hyperlipidemia; K21.9 Gastro-esophageal reflux disease without esophagitis; N42.9 Disorder of prostate, unspecified; I12.9 Hypertensive chronic kidney disease with stage 1 through stage 4 chronic kidney disease, or unspecified chronic kidney disease; N18.3 Chronic kidney disease, stage 3 (moderate); Z79.899 Other long term (current) drug therapy
CPT/HCPCS: 80053; 80061; 81001; 82043; 82570; 83036; 83540; 83550; 83735; 84153; 85025

== ENCOUNTER → 2019-01-09 | Outpatient (CLI) | payer MEDICARE, SELFPAY ==
[2019-01-09 10:53] LABS: International Normalized Ratio 3.1; Prothrombin Time (Protime)PT. 31.9 SECONDS (11.7-14.9)
== END | disposition home or self-care (01) ==
LOC: LABSPEC 09:38
PROVIDERS: Family Provider Family Medicine; PCP Family Medicine; Referring Provider Internal Medicine Cardiovascular Disease; Visit Provider Internal Medicine Cardiovascular Disease
DX: I48.0 Paroxysmal atrial fibrillation (principal)
CPT/HCPCS: 85610

== ENCOUNTER → 2019-03-27 | Outpatient (CLI) | payer MEDICARE, SELFPAY ==
[2019-03-27 09:53] LABS: Hematocrit 31.8 % (40-54); Hemoglobin 9.9 g/dL (13.0-16.5); Mean Corp Hgb Conc 31.1 g/dL (32-36); Mean Corpuscular Hgb 27.8 pg (27.0-32.0); Mean Corpuscular Volume 89.3 fL (80-94); Mean Platelet Vol. 11.8 fl (6.2-12.0); Platelet Count 282 K/mm3 (150-450); RBC Distribution Width CV 13.1 % (11.6-14.6); RBC Distribution Width SD 42.9 fl (35.1-43.9); Red Blood Count 3.56 M/mm3 (4.6-6.2); White Blood Count 5.3 K/mm3 (4.4-11.0)
[2019-03-27 10:02] LABS: Protein, Urine (Random) 18.1 mg/dL (<11.9); Protein:Creat Ratio 517 mg/g CRE (0-200)
[2019-03-27 10:22] LABS: Vitamin D,25 Hydroxy 30.9 ng/mL (29.95-100.01)
[2019-03-27 10:23] LABS: PTHIN 44.4 pg/mL (18.4-80.1)
[2019-03-27 10:28] LABS: Albumin, Serum 3.6 g/dL (3.2-5.0); BUN 32 mg/dL (7-18); BUN/Creat Ratio 16.3 RATIO (10-20); Calcium,Total 9.3 mg/dL (8.5-10.1); Chloride 103 mmol/L (98-107); Creatinine, Serum 1.96 mg/dL (0.70-1.30); EST Glomerular Filtration Rate 36 mL/min (>60); Est Glom Filt Rate - Afr Amer 44 mL/min (>60); Glucose 128 mg/dL (74-106); Phosphorus 2.6 mg/dL (2.5-4.9); Potassium 4.4 mmol/L (3.5-5.1); Sodium Level 138 mmol/L (136-145)
== END | disposition home or self-care (01) ==
LOC: MTLAB 08:13
PROVIDERS: Family Provider Family Medicine; PCP Family Medicine; Referring Provider Internal Medicine Nephrology; Visit Provider Internal Medicine Nephrology
DX: N18.3 Chronic kidney disease, stage 3 (moderate) (principal); D50.9 Iron deficiency anemia, unspecified
CPT/HCPCS: 36415; 80069; 82306; 82570; 83970; 84156; 85027

== ENCOUNTER → 2019-05-18 16:58 | Outpatient (CLI) | payer MEDICARE, SELFPAY ==
[2019-05-18 17:21] LABS: Absolute Lymphocyte Count 0.59 X10^3/uL (0.83-4.51); Absolute Neutrophil Count 3.1 X10^3/uL (2.0-7.7); Basophil# 0.02 X10^3/uL; Basophil% 0.4 % (0-1); Eosinophils% 4.4 % (0-5); Hematocrit 31.3 % (40-54); Hemoglobin 9.9 g/dL (13.0-16.5); Lymphocyte # 0.59 X10^3/ul (4.0); Mean Corp Hgb Conc 31.6 g/dL (32-36); Mean Corpuscular Volume 88.4 fL (80-94); Mean Platelet Vol. 12.5 fl (6.2-12.0); Monocyte# 0.62 X10^3/uL; Monocyte% 13.7 % (0-10); NRBC Flagged by Analyzer 0 % (0-5); Neutrophil # 3.09 X10^3/uL (2.7-7.7); Neutrophil % 68.3 % (47-70); POSITIVE DIFFERENTIAL YES; Platelet Count 201 K/mm3 (150-450); RBC Distribution Width CV 13.9 % (11.6-14.6); Red Blood Count 3.54 M/mm3 (4.6-6.2); White Blood Count 4.5 K/mm3 (4.4-11.0)
[2019-05-18 17:31] LABS: Differential Indicated SCAN CRITERIA MET
[2019-05-18 17:33] LABS: Hemoglobin A1c 8.6 % (4.2-6.3)
[2019-05-18 17:47] LABS: Differential Comment SCANNED
[2019-05-18 18:21] LABS: ALB/GLOB Ratio 0.9 RATIO (0.9-2.4); AST(SGOT) 22 U/L (15-37); Alanine Aminotransfer ALT/SGPT 24 U/L (16-61); Albumin, Serum 3.5 g/dL (3.2-5.0); Alkaline Phosphatase 48 U/L (45-117); Anion Gap 8 (5-15); BUN 39 mg/dL (7-18); BUN/Creat Ratio 18.7 RATIO (10-20); Chloride 107 mmol/L (98-107); Cholesterol 108 mg/dL (200); Creatinine, Serum 2.09 mg/dL (0.70-1.30); EST Glomerular Filtration Rate 34 mL/min (>60); Est Glom Filt Rate - Afr Amer 41 mL/min (>60); Glucose 287 mg/dL (74-106); High Density Lipoprotein 27 mg/dL; Iron 72 ug/dL (65-175); Iron Binding Capacity,Total 385 ug/dL (250-450); PERCENT IRON SATURATION 18.7 % (15.0-55.0); Potassium 4.1 mmol/L (3.5-5.1); Protein, Total 7.5 g/dL (6.4-8.2); Sodium Level 140 mmol/L (136-145); Triglycerides 115 mg/dL; Very Low Density Lipoprotein 23 mg/dL (5-40)
== END ==
PROVIDERS: Family Provider Family Medicine; PCP Family Medicine; Referring Provider Family Medicine; Visit Provider Family Medicine
DX: D50.8 Other iron deficiency anemias (principal); E11.3219 Type 2 diabetes mellitus with mild nonproliferative diabetic retinopathy with macular edema, unspecified eye; Z79.4 Long term (current) use of insulin; E11.22 Type 2 diabetes mellitus with diabetic chronic kidney disease; I12.9 Hypertensive chronic kidney disease with stage 1 through stage 4 chronic kidney disease, or unspecified chronic kidney disease; N18.3 Chronic kidney disease, stage 3 (moderate); E78.2 Mixed hyperlipidemia
CPT/HCPCS: 80053; 80061; 83036; 83540; 83550; 85025

== ENCOUNTER 2019-05-25 15:12 | Outpatient (RCR) | payer MEDICARE, SELFPAY ==
[2019-05-20 16:28] VITALS: BMI 35.2
[2019-05-26 10:49] LABS: Prothrombin Time Fingerstick 32.3 SEC (11.9-14.4)
== END 2019-05-25 18:00 | disposition home or self-care (01) ==
LOC: MTLAB 15:12
PROVIDERS: Family Provider Family Medicine; PCP Family Medicine; Referring Provider Internal Medicine Cardiovascular Disease; Visit Provider Internal Medicine Cardiovascular Disease
DX: I48.0 Paroxysmal atrial fibrillation (principal); Z79.01 Long term (current) use of 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s
CPT/HCPCS: 36416; 85610

== ENCOUNTER → 2019-06-04 14:42 | Outpatient (CLI) | payer MEDICARE, SELFPAY ==
[2019-05-20 16:28] VITALS: BMI 35.2
--- NOTE | 2019-06-04 14:44 | ECHOD_ITS ---
Reason For Study: AFIB/FLUTTER, HTN. Procedure This was a 2D Doppler, Color Flow transthoracic echocardiogram. Exam performed in department. Left Ventricle Normal LV size. Mild to moderate global left ventricular systolic dysfunction. The estimated ejection fraction is 40 %. Unable to assess diastolic dysfunction due to arrhythmia. Atria The left atrium is moderately enlarged. The right atrium is moderately enlarged. Mitral Valve Normal mitral valve. Mild (1+) eccentric mitral valve insufficiency. Tricuspid Valve Normal tricuspid valve. Mild tricuspid valve insufficiency. Pulmonary artery systolic pressure is 44 mmHg. Aortic Valve Trisinus/trileaflet aortic valve. Pulmonic Valve Normal pulmonic valve. Great Vessels Normal aortic root. The pulmonary artery is normal size. Normal inferior vena cava. Pericardium/Pleural No pericardial effusion. MMode/2D Measurements & Calculations LVIDd: 5.4 cm IVSd: 0.99 cm Ao root diam: 3.9 cm LVIDs: 4.0 cm LVPWd: 1.2 cm RVDd: 4.2 cm FS: 25.7 % LAV(MOD-bp): 103.5 ml LA A4 area: 27.5 cm2 LA dimension(2D): 5.0 cm LAV(MOD-bp) Indexed: 47.2 ml/m2 LAV(MOD-sp2): 100.0 ml LAV(MOD-sp4): 100.2 ml RA A4 area: 23.7 cm2 Time Measurements MV dec time: 0.17 sec Doppler Measurements & Calculations MV E max shelly: 136.5 cm/sec Ao V2 max: 151.6 cm/sec LV V1 max: 112.0 cm/sec MV A max shelly: 37.2 cm/sec Ao max P.2 mmHg LV V1 max P.0 mmHg MV E/A: 3.7 MR max shelly: 463.2 cm/sec PA V2 max: 97.2 cm/sec TR max shelly: 339.8 cm/sec MR max P.9 mmHg TR max P.3 mmHg Interpretation Summary Normal LV size. Mild to moderate global left ventricular systolic dysfunction. The estimated ejection fraction is 40 %. Unable to assess diastolic dysfunction due to arrhythmia. The left atrium is moderately enlarged. The right atrium is moderately enlarged. Ordering Physician: Tommy Harvey Referring Physician: Lester Jarvis Performed By: Latricia Montgomery, RHIANNON, RVT
== END ==
LOC: CVS 14:43
PROVIDERS: Family Provider Family Medicine; PCP Family Medicine; Referring Provider Internal Medicine Cardiovascular Disease; Visit Provider Internal Medicine Cardiovascular Disease
DX: I48.0 Paroxysmal atrial fibrillation (principal); I10 Essential (primary) hypertension
CPT/HCPCS: 93306

== ENCOUNTER 2019-07-06 12:25 | Outpatient (RCR) | payer MEDICARE, SELFPAY ==
[2019-05-20 16:28] VITALS: BMI 35.2
[2019-07-06 15:25] LABS: Prothrombin Time Fingerstick 41.6 SEC (11.9-14.4)
== END 2019-07-06 18:00 | disposition home or self-care (01) ==
LOC: MTLAB 12:25
PROVIDERS: Family Provider Family Medicine; PCP Family Medicine; Referring Provider Internal Medicine Cardiovascular Disease; Visit Provider Internal Medicine Cardiovascular Disease
DX: I48.0 Paroxysmal atrial fibrillation (principal); Z79.01 Long term (current) use of 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s
CPT/HCPCS: 36416; 85610

== ENCOUNTER 2019-07-27 09:17 | Outpatient (RCR) | payer MEDICARE, SELFPAY ==
[2019-05-20 16:28] VITALS: BMI 35.2
[2019-07-13 09:42] LABS: Prothrombin Time Fingerstick 26.5 SEC (11.9-14.4)
[2019-07-28 07:40] LABS: Prothrombin Time Fingerstick 23.5 SEC (11.9-14.4)
== END 2019-07-27 18:00 | disposition home or self-care (01) ==
LOC: MTLAB 09:17
PROVIDERS: Family Provider Family Medicine; PCP Family Medicine; Referring Provider Internal Medicine Cardiovascular Disease; Visit Provider Internal Medicine Cardiovascular Disease
DX: I48.0 Paroxysmal atrial fibrillation (principal); Z79.01 Long term (current) use of 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s
CPT/HCPCS: 36416; 85610

== ENCOUNTER 2019-09-03 10:12 | Outpatient (RCR) | payer MEDICARE, SELFPAY ==
[2019-05-20 16:28] VITALS: BMI 35.2
[2019-08-12 13:08] LABS: Prothrombin Time Fingerstick 15.5 SEC (11.9-14.4)
[2019-08-21 15:06] LABS: Prothrombin Time Fingerstick 25.9 SEC (11.9-14.4)
[2019-09-03 14:36] LABS: Prothrombin Time Fingerstick 25.9 SEC (11.9-14.4)
== END 2019-09-03 18:00 | disposition home or self-care (01) ==
LOC: MTLAB 10:12
PROVIDERS: Family Provider Family Medicine; PCP Family Medicine; Referring Provider Internal Medicine Cardiovascular Disease; Visit Provider Internal Medicine Cardiovascular Disease
DX: I48.0 Paroxysmal atrial fibrillation (principal); Z79.01 Long term (current) use of 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s
CPT/HCPCS: 36416; 85610

== ENCOUNTER 2019-10-01 11:24 | Outpatient (RCR) | payer MEDICARE, SELFPAY ==
[2019-05-20 16:28] VITALS: BMI 35.2
[2019-09-21 11:04] VITALS: BMI 34.8
[2019-10-02 07:20] LABS: Prothrombin Time Fingerstick 26.7 SEC (11.9-14.4)
== END 2019-10-01 18:00 | disposition home or self-care (01) ==
LOC: MTLAB 11:24
PROVIDERS: Family Provider Family Medicine; PCP Family Medicine; Referring Provider Internal Medicine Cardiovascular Disease; Visit Provider Internal Medicine Cardiovascular Disease
DX: I48.0 Paroxysmal atrial fibrillation (principal); Z79.01 Long term (current) use of 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s
CPT/HCPCS: 36416; 85610

== ENCOUNTER → 2019-10-12 14:35 | Outpatient (CLI) | payer MEDICARE, SELFPAY ==
[2019-09-21 11:04] VITALS: BMI 34.8
[2019-10-12 17:33] LABS: Hematocrit 33.9 % (40-54); Hemoglobin 11.3 g/dL (13.0-16.5); Mean Corp Hgb Conc 33.3 g/dL (32-36); Mean Corpuscular Volume 86.9 fL (80-94); Platelet Count 245 K/mm3 (150-450); RBC Distribution Width CV 12.1 % (11.6-14.6); RBC Distribution Width SD 38.9 fl (35.1-43.9); White Blood Count 6.3 K/mm3 (4.4-11.0)
[2019-10-12 17:48] LABS: Protein, Urine (Random) 17.4 mg/dL (<11.9); Protein:Creat Ratio 337 mg/g CRE (0-200)
[2019-10-12 17:53] LABS: Vitamin D,25 Hydroxy 30.7 ng/mL (29.95-100.01)
[2019-10-12 18:13] LABS: Albumin, Serum 3.3 g/dL (3.2-5.0); BUN 34 mg/dL (7-18); BUN/Creat Ratio 16.2 RATIO (10-20); Calcium,Total 9.6 mg/dL (8.5-10.1); Chloride 97 mmol/L (98-107); EST Glomerular Filtration Rate 33 mL/min (>60); Est Glom Filt Rate - Afr Amer 40 mL/min (>60); Glucose 515 mg/dL (74-106); Magnesium 2.2 mg/dL (1.6-2.6); Phosphorus 2.6 mg/dL (2.5-4.9); Potassium 4.4 mmol/L (3.5-5.1); Sodium Level 129 mmol/L (136-145)
[2019-10-13 09:03] LABS: PTHIN 20.4 pg/mL (18.4-80.1)
== END ==
PROVIDERS: PCP Family Medicine; Referring Provider Internal Medicine Nephrology; Visit Provider Internal Medicine Nephrology
DX: N18.3 Chronic kidney disease, stage 3 (moderate) (principal); E83.42 Hypomagnesemia; D50.9 Iron deficiency anemia, unspecified
CPT/HCPCS: 36415; 80069; 82306; 82570; 83735; 83970; 84156; 85027

== ENCOUNTER 2019-11-02 09:41 | Outpatient (RCR) | payer MEDICARE, SELFPAY ==
[2019-09-21 11:04] VITALS: BMI 34.8
[2019-11-02 12:01] LABS: Prothrombin Time Fingerstick 28.4 SEC (11.9-14.4)
== END 2019-11-02 18:00 | disposition home or self-care (01) ==
LOC: MTLAB 09:41
PROVIDERS: Family Provider Family Medicine; PCP Family Medicine; Referring Provider Internal Medicine Cardiovascular Disease; Visit Provider Internal Medicine Cardiovascular Disease
DX: I48.0 Paroxysmal atrial fibrillation (principal); Z79.01 Long term (current) use of 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s
CPT/HCPCS: 36416; 85610

== ENCOUNTER → 2019-11-18 | Outpatient (CLI) | payer MEDICARE, SELFPAY ==
[2019-09-21 11:04] VITALS: BMI 34.8
[2019-11-18 12:33] LABS: Bacteria 0 SEEN /hpf (None Seen); Mucous, Urine 0 SEEN /hpf (<or=2+); Red Blood Cells-Urine 0 SEEN /hpf (0-5); Squamous Epithelial Cells - UA 0 SEEN /hpf (0-5); White Blood Cells 0 SEEN /hpf (0-5)
[2019-11-18 12:51] LABS: Color, Urine Yellow (Yellow); Glucose, Dipstick Normal (Normal); Ketone-Dipstick Negative (Negative); Leukocyte Esterase-Dipstick Negative /ul (Negative); Nitrite-Dipstick Negative (Negative); Occult Blood-Urine Negative /ul (Negative); Protein-Dipstick Negative (Negative); Specific Gravity, Urine 1.005 (1.002-1.030); Urine Bilirubin Dipstick Negative (Negative); Urine Clarity Clear (Clear); Urine Urobilinogen Normal (Normal)
[2019-11-18 12:58] LABS: Cholesterol 157 mg/dL (200); High Density Lipoprotein 35 mg/dL; Magnesium 1.9 mg/dL (1.6-2.6); PSA,Total- Diagnostic 0.84 ng/mL (0.0-4.0); Triglycerides 132 mg/dL; Very Low Density Lipoprotein 26 mg/dL (5-40)
[2019-11-18 13:11] LABS: Microalbumin,Random Urine 57.2 mg/L (NO RANGE EST.); Microalbumin:Creatinine Ratio 310.9 mg/g CRE (<30 mg/g CRE)
[2019-11-18 13:18] LABS: Hemoglobin A1c 13.1 % (4.2-6.3)
== END | disposition home or self-care (01) ==
LOC: LABSPEC 12:21
PROVIDERS: PCP Family Medicine; Referring Provider Physician Assistant; Visit Provider Physician Assistant
DX: E11.29 Type 2 diabetes mellitus with other diabetic kidney complication (principal); Z79.4 Long term (current) use of insulin; R80.9 Proteinuria, unspecified; E11.3219 Type 2 diabetes mellitus with mild nonproliferative diabetic retinopathy with macular edema, unspecified eye; N42.9 Disorder of prostate, unspecified; E78.2 Mixed hyperlipidemia
CPT/HCPCS: 80061; 81001; 82043; 82570; 83036; 83735; 84153

== ENCOUNTER 2019-12-03 07:02 | Outpatient (RCR) | payer MEDICARE, SELFPAY ==
[2019-09-21 11:04] VITALS: BMI 34.8
[2019-12-03 07:11] LABS: Prothrombin Time Fingerstick 27.5 SEC (11.9-14.4)
== END 2019-12-03 18:00 | disposition home or self-care (01) ==
LOC: MTLAB 07:02
PROVIDERS: Family Provider Family Medicine; PCP Family Medicine; Referring Provider Internal Medicine Cardiovascular Disease; Visit Provider Internal Medicine Cardiovascular Disease
DX: I48.0 Paroxysmal atrial fibrillation (principal); Z79.01 Long term (current) use of 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s
CPT/HCPCS: 36416; 85610

== ENCOUNTER 2020-01-04 10:15 | Outpatient (RCR) | payer MEDICARE, SELFPAY ==
[2019-09-21 11:04] VITALS: BMI 34.8
[2020-01-04 10:26] LABS: Prothrombin Time Fingerstick 32.2 SEC (11.9-14.4)
== END 2020-01-07 18:00 | disposition home or self-care (01) ==
LOC: MTLAB 10:15
PROVIDERS: Family Provider Family Medicine; PCP Family Medicine; Referring Provider Internal Medicine Cardiovascular Disease; Visit Provider Internal Medicine Cardiovascular Disease
DX: I48.0 Paroxysmal atrial fibrillation (principal); Z79.01 Long term (current) use of 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s
CPT/HCPCS: 36416; 85610

== ENCOUNTER 2020-02-02 14:02 | Inpatient (IN) | payer MEDICARE, SELFPAY ==
[2019-09-21 11:04] VITALS: BMI 34.8
[2020-02-02] VITALS (7 sets, daily range): BP systolic 120–151; BP diastolic 66–101; PULSE 60–68; RESP 17–22; TEMP 36.6–37.1; O2SAT 97–98; BMI 37.1; BMI 36.7; BMI 37.2
--- NOTE | 2020-02-02 14:32 | EKG12_ITS ---
Test Reason : Blood Pressure : / mmHG Vent. Rate : 074 BPM Atrial Rate : 081 BPM P-R Int : 000 ms QRS Dur : 120 ms QT Int : 424 ms P-R-T Axes : 000 -49 090 degrees QTc Int : 470 ms Atrial fibrillation Left axis deviation Incomplete left bundle branch block Abnormal ECG Confirmed by ANN KNIGHT ([id number]), proposal editor BUTCH REED ([id number]) on 02/04/2020 2:27:01 PM Referred By: Confirmed By:ANN KNIGHT
[2020-02-02 14:50] LABS: Absolute Lymphocyte Count 0.54 X10^3/uL (0.83-4.51); Absolute Neutrophil Count 3.9 X10^3/uL (2.0-7.7); Basophil# 0.03 X10^3/uL; Basophil% 0.5 % (0-1); Eosinophil# 0.18 X10^3/uL; Eosinophils% 3.2 % (0-5); Hematocrit 30.8 % (40-54); Hemoglobin 9.7 g/dL (13.0-16.5); Lymphocyte # 0.54 X10^3/ul (4.0); Lymphocyte % 9.7 % (19-41); Mean Corp Hgb Conc 31.5 g/dL (32-36); Mean Corpuscular Hgb 29.8 pg (27.0-32.0); Mean Corpuscular Volume 94.5 fL (80-94); Mean Platelet Vol. 11.9 fl (6.2-12.0); Monocyte# 0.85 X10^3/uL; Monocyte% 15.3 % (0-10); NRBC Flagged by Analyzer 0 % (0-5); Neutrophil # 3.94 X10^3/uL (2.7-7.7); Neutrophil % 71.1 % (47-70); POSITIVE DIFFERENTIAL YES; Platelet Count 218 K/mm3 (150-450); RBC Distribution Width CV 12.8 % (11.6-14.6); RBC Distribution Width SD 43.8 fl (35.1-43.9); Red Blood Count 3.26 M/mm3 (4.6-6.2); White Blood Count 5.6 K/mm3 (4.4-11.0)
[2020-02-02 14:56] LABS: Anion Gap 8 (5-15); BUN 42 mg/dL (7-18); BUN/Creat Ratio 18.1 RATIO (10-20); Calcium,Total 9.4 mg/dL (8.5-10.1); Chloride 112 mmol/L (98-107); Creatinine, Serum 2.32 mg/dL (0.70-1.30); Differential Indicated SCAN CRITERIA MET; EST Glomerular Filtration Rate 30 mL/min (>60); Est Glom Filt Rate - Afr Amer 36 mL/min (>60); Estimated Creatinine Clearance 29.63 ml/min; Glucose 78 mg/dL (74-106); Sodium Level 144 mmol/L (136-145)
--- NOTE | 2020-02-02 15:00 | RAD_ITS ---
STUDY: X-RAY CHEST REASON FOR EXAM: Male, 70 years old. Sob with edema to lower legs TECHNIQUE: Single AP portable view of the chest. COMPARISON: Comparison is made with prior examination dated January 11, 2018. FINDINGS: EKG electrodes are seen. Electrodes from a TENS unit are seen with the tip at the T7-T8 level. Vascular congestion. Borderline cardiomegaly. There is no demonstrated pleural abnormality. Normal size heart. Normal mediastinum and daniel. Normal visualized pulmonary arteries. There is atherosclerotic tortuosity of the aortic arch and descending thoracic aorta. There are diffuse degenerative changes of the visualized thoracic spine. There is degenerative osteoarthritis of the bilateral shoulders. There is no demonstrated abnormality of the visualized soft tissue structures of the upper abdomen. RAD/Chest 1 View (Portable) IMPRESSION: Borderline cardiomegaly and mild degree of CHF. Electronically Signed: Hugo Gross, at 15:18 EDT , Service support ,
[2020-02-02 15:24] LABS: BNP,B-Type NATRIURETIC PEPTIDE 280.9 pg/mL (0-100)
--- NOTE | 2020-02-02 15:24 | ED.DCSUM_ITS ---
History of Present Illness Chief Complaint: Shortness of Breath Informant: Patient Onset: Weeks - 1 week Context: Gradual Onset Current Severity: Moderate Maximum Severity: Moderate Narrative: Patient presents with a one-week history of increasing bilateral lower extremity edema and shortness of breath. He does describe some orthopnea. He denies chest pain, cough, or fever. He has a history of chronic kidney disease as well as paroxysmal A. fib. He has nonischemic cardiomyopathy. He is currently on Coumadin. Patient does have a documented allergy to Lasix in which he states he gets hives. He is on torsemide 3 times a week. - Past Medical History (1) senior living current use of 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 Status: Chronic (2) CKD (chronic kidney disease), stage III Status: Chronic (3) CVA (cerebral vascular accident) Status: Chronic (4) Essential (primary) hypertension Status: Chronic (5) Hyperlipidemia Status: Chronic (6) Incomplete left bundle branch block Status: Chronic (7) Non-ischemic cardiomyopathy Status: Chronic (8) Paroxysmal atrial fibrillation Status: Chronic (9) Secondary pulmonary arterial hypertension Status: Chronic Past Medical History - Allergies and Home Meds Allergies/Adverse Reactions: Allergies furosemide [From Lasix] Allergy (Verified 02/02/20 14:03) Hives rofecoxib Allergy (Verified 02/02/20 14:03) Hives Primary Care Physician: Lester Jarvis MD [Primary Care Provider] - Doctors: Dr. Harvey Surgical History: total knee arthroplasty - bilat Smoking Status: Never smoker - Family History Sibling Family History: Family History (Last Reviewed 05/20/19 @ 16:[address] Tommy Harvey MD) Mother Heart disease Sister Heart disease Myocardial infarction CVA (cerebral vascular accident) Diabetes Brother CVA (cerebral vascular accident) Family History: Reports: Stroke Review of Systems General: Denies: Chills, Fever Eyes: Denies: Visual changes - bilaterally ENT: Denies: Bilateral ear pain Cardiovascular: Denies: Chest pain, Palpitations Respiratory: Reports: Dyspnea. Denies: Cough, Sputum Gastrointestinal: Denies: Abdominal pain, Nausea, Vomiting, Diarrhea Genitourinary: Denies: Dysuria Musculoskeletal: Reports: Swelling Skin: Denies: Rash Neurological: Denies: Headache Hematologic: Denies: Easy bruising, Easy bleeding Allergy: Denies: Uticaria Physical Exam Vital Signs/Narrative: Vital Signs Temp Pulse Resp BP Pulse Ox 02/02/20 14:29 67 17 151/101 H 97 02/02/20 14:03 98.1 F 60 22 H 145/80 H 98 Inital Vital Signs reviewed: Yes General: Well nourished, Well developed Head: Normocephalic ENT: Moist mucous membranes Neck: Supple Cardiovascular: Irregular Respiratory: No distress, CTA bilaterally Abdomen: Soft, Nontender Extremities: - - 3-4+ edema bilateral lower extremities. Skin: Normal color Neurological: Alert, Oriented x3 Psychological: Normal affect Diagnostic/Tx/Re-eval Impressions Chest X-Ray 02/02/20 15:00 IMPRESSION: Borderline cardiomegaly and mild degree of CHF. Electronically Signed: Hugo Gross, at 15:18 EDT , Service support , 02/02/20 15:00 Chest 1 View (Portable) [RAD] Stat Laboratory Results 02/02/20 02/02/20 02/02/20 14:20 14:20 14:20 WBC 5.6 RBC 3.26 L Hgb 9.7 L Hct 30.8 L MCV 94.5 H MCH 29.8 MCHC 31.5 L RDW Std Deviation 43.8 RDW Coeff of Whitney 12.8 Plt Count 218 MPV 11.9 Immature Gran % (Auto) 0.200 Neut % (Auto) 71.1 H Lymph % (Auto) 9.7 L [place] % (Auto) 15.3 H Eos % (Auto) 3.2 Baso % (Auto) 0.5 Absolute Neuts (auto) 3.9 Absolute Lymphs (auto) 0.54 L Nucleated RBC % 0 Sodium 144 Potassium 4.0 Chloride 112 H Carbon Dioxide 24.0 Anion Gap 8 BUN 42 H Creatinine 2.32 H Estim Creat Clear Calc 29.63 Est GFR (MDRD) Af Amer 36 L Est GFR (MDRD) Non-Af 30 L BUN/Creatinine Ratio 18.1 Glucose 78 Calcium 9.4 Troponin I 0.153 H B-Natriuretic Peptide 280.9 H - EKG Initial EKG Interpretation: Atrial Fibrillation - A. fib at 74. Incomplete left bundle branch block noted. - Medical Decision Making When patient's troponin returned elevated he was given aspirin. I spoke with Dr. Farmer, on-call for Dr. Harvey. He recommended starting patient on a Bumex drip for diuresis. I did speak with pharmacy and cross-reactivity with a Lasix allergy is very low. I will speak with hospitalist regarding admission. Cardiology is planning to follow in house. ED Disposition - Plan for ED Patient: [facility] Diagnosis: CHF (congestive heart failure), Elevated troponin Referrals: Lester Jarvis MD [Primary Care Provider] -
[2020-02-02] MEDS: Aspirin 81 MG TAB.CHEW 324 MG PO (15:32)
[2020-02-02 15:35] LABS: Platelet Estimate ADEQUATE (ADEQ); Red Cell Morphology NORM C+C NORMAL (NORM C&C)
[2020-02-02] MEDS: Bumetanide 25 MG in CONTAINER,EMPTY 1 BAG CONT INF (16:20)
--- NOTE | 2020-02-02 16:33 | HP.PCM_ITS ---
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 (5) Incomplete left bundle branch block Status: Chronic (6) Secondary pulmonary arterial hypertension Status: Chronic (7) Paroxysmal atrial fibrillation Status: Chronic (8) Essential (primary) hypertension Status: Chronic (9) Hyperlipidemia Status: Chronic Qualifiers: Hyperlipidemia type: unspecified Qualified Code(s): E78.5 - Hyperlipidemia, unspecified (10) CVA (cerebral vascular accident) Status: Chronic (11) NSVT (nonsustained ventricular tachycardia) Status: Resolved (12) CKD (chronic kidney disease), stage III Status: Chronic History of Present Illness Date of Admission: 02/02/20 Chief Complaint: Shortness of breath. The patient is a 70 year old M who presents emergency room due to increased bilateral lower extremity swelling and shortness of breath. Patient reports his symptoms began about a week ago. Patient reports an approximate 10 to 15 pound weight gain. He denies chest pain or pressure. He reports difficulty breathing while lying flat. He states his legs are swollen up into his thighs. He denies cough, fever, chills. Denies other associated symptoms. He has a past medical history of chronic heart failure with reduced ejection fraction, chronic kidney disease stage III, hypertension, hyperlipidemia, paroxysmal atrial fibrillation, history of CVA, type 2 diabetes mellitus, chronic anemia. Past Medical History Past Medical History (Chronic Problems): Chronic Problems (Last Updated 06/04/19 @ 18:24 by Jahaira Price) Non-ischemic cardiomyopathy (Chronic) [facility] current use of 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 (Chronic) Incomplete left bundle branch block (Chronic) Secondary pulmonary arterial hypertension (Chronic) Paroxysmal atrial fibrillation (Chronic) Essential (primary) hypertension (Chronic) Hyperlipidemia (Chronic) CVA (cerebral vascular accident) (Chronic 12/2017) CKD (chronic kidney disease), stage III (Chronic) Medical History: Medical History (Last Updated 06/04/19 @ 18:24 by Jahaira Price) Non-ischemic cardiomyopathy (Chronic) I42.8 Incomplete left bundle branch block (Chronic) I44.7 Secondary pulmonary arterial hypertension (Chronic) I27.21 Paroxysmal atrial fibrillation (Chronic) I48.0 Essential (primary) hypertension (Chronic) I10 Hyperlipidemia (Chronic) E78.5 CVA (cerebral vascular accident) (Chronic) Onset Date: 12/2017 I63.9 NSVT (nonsustained ventricular tachycardia) (Resolved) I47.2 CKD (chronic kidney disease), stage III (Chronic) N18.3 Anemia D64.9 Chronic low back pain M54.5, G89.29 GERD (gastroesophageal reflux disease) K21.9 Obesity E66.9 Osteoarthritis M19.90 TIA (transient ischemic attack) Onset Date: 12/2017 G45.9 Allergies furosemide [From Lasix] Allergy (Verified 02/02/20 14:03) Hives rofecoxib Allergy (Verified 02/02/20 14:03) Hives Home Medications: Ambulatory Orders Medication Instructions Recorded Ascorbic Acid [Vitamin C with Vivian 500 mg PO BID 01/11/18 Hips] Carvedilol [Coreg] 25 mg PO BID 01/11/18 Insulin Glargine [Lantus SoloStar 25 units SUBCUT BID 01/11/18 Pen] Lovastatin [Mevacor] 40 mg PO QHS 01/11/18 Multivitamin [Multiple Vitamins] 1 tab PO DAILY 01/11/18 Quinapril HCl [Accupril] 40 mg PO DAILY 01/11/18 docusate sodium 100 mg capsule 100 mg PO DAILY PRN PRN 05/20/19 ferrous sulfate 325 mg (65 mg 325 mg PO DAILY 05/20/19 iron) tablet omeprazole 20 mg capsule,delayed 20 mg PO DAILY #90 cap 05/20/19 release Amlodipine [Norvasc] 10 mg PO DAILY 02/02/20 Fenofibrate 160 mg PO DAILY 02/02/20 Insulin Aspart [Novolog Flexpen 10 units SUBCUT TIDCM 02/02/20 ([facility])] Torsemide [Demadex] 10 mg PO MOWEFR 02/02/20 Warfarin [Coumadin ([facility])] 4 mg PO SUMOTUTHFRSA 02/02/20 Warfarin [Coumadin ([facility])] 6 mg PO WE 02/02/20 Surgical History: Surgical History (Last Reviewed 05/20/19 @ 16:[address] Tommy Harvey MD) History of back surgery Z98.890 History of knee replacement, total Z96.659 Surgical History: total knee arthroplasty - bilat Psychiatric History: No pertinent psych hx Lives: Spouse/ Significant Other Smoking Status: Never smoker Alcohol: None Drugs: None - *Family History Sibling Family History: Family History (Last Reviewed 02/02/20 @ 17:08 by PONCHO Gudino) Mother Heart disease Sister Heart disease Myocardial infarction CVA (cerebral vascular accident) Diabetes Brother CVA (cerebral vascular accident) History Items: Stroke Maternal Family History: Family History (Last Reviewed 02/02/20 @ 17:08 by PONCHO Gudino) Mother Heart disease Sister Heart disease Myocardial infarction CVA (cerebral vascular accident) Diabetes Brother CVA (cerebral vascular accident) Paternal Family History: Family History (Last Reviewed 02/02/20 @ 17:08 by PONCHO Gudino) Mother Heart disease Sister Heart disease Myocardial infarction CVA (cerebral vascular accident) Diabetes Brother CVA (cerebral vascular accident) History Items: - - Denies known paternal medical history including cardiac history. Review of Systems Constitutional: Denies: Chills, Fever, Weight Change HEENT: Denies: Head Aches, Sinus Congestion, Sinus Drainage Cardiovascular: Reports: Edema. Denies: Chest Pain, Heaviness, Light Headedness, Palpitations, Syncope Respiratory: Reports: Shortness of Breath. Denies: Cough, Sputum production, Wheezing Gastrointestinal: Denies: Abdominal Pain, Nausea, Vomiting Genitourinary: Denies: Dysuria Musculoskeletal: Denies: Joint Pain, Joint Tenderness Skin: Denies: Rash, Wounds Neurological: Denies: Numbness, Tingling, Focal weakness Psychiatric: Denies: Anxiety, Depression, Homicidal Ideations, Suicidal Ideations Hematologic/ Lymphatic: Denies: Easy Bruising, Easy Bleeding VTE Information - Inpt Only VTE Present on Admission: No VTE Mechan Device Prophylaxis: None VTE Pharm Prophylaxis ordered?: No Reason prophylaxis not ordered:: Treatment Not Indicated - Already on Coumadin Patient Problems: Active and Suspected Problems (Last Updated 06/04/19 @ 18:24 by Jahaira Price) CHF (congestive heart failure) (Acute) Elevated troponin (Acute) - Physical Exam Vitals/I&O's: Vital Signs Temp Pulse Resp BP Pulse Ox 98 F 65 20 H 128/68 H 97 02/02/20 16:25 02/02/20 16:25 02/02/20 16:25 02/02/20 16:25 02/02/20 16:25 Oxygen Delivery Method Room Air Weight: 251 lb 12.286 oz Body Mass Index (BMI) 37.1 Finger Stick Blood Glucose 78 General: Alert, Oriented x3, Cooperative HEENT: Atraumatic, PERRLA, EOMI, Normocephalic Neck: Supple, No JVD, Negative Carotid Bruits Lungs: Clear to auscultation, Diminished Cardiovascular: - - Atrial fibrillation, rate controlled Abdomen: Bowel Sounds Present, Soft, Non Tender, Non-Distended, Obese Extremities: No clubbing, No cyanosis, Edema - +3 bilateral lower extremities extending to upper thigh Skin: No rashes, No breakdown Musculoskeletal: No Tenderness to Palpation of Joints or Extremities Neurological: Cranial nerves II-XII grossly intact, Neuro grossly intact Psych/Mental Status: Normal Affect, Appropriate Laboratory Results 02/02/20 14:20: WBC 5.6, RBC 3.26 L, Hgb 9.7 L, Hct 30.8 L, MCV 94.5 H, MCH 29.8, MCHC 31.5 L, RDW Std Deviation 43.8, RDW Coeff of Whitney 12.8, Plt Count 218, MPV 11.9, Immature Gran % (Auto) 0.200, Neut % (Auto) 71.1 H, Lymph % (Auto) 9.7 L, [place] % (Auto) 15.3 H, Eos % (Auto) 3.2, Baso % (Auto) 0.5, Absolute Neuts (auto) 3.9, Absolute Lymphs (auto) 0.54 L, Nucleated RBC % 0, Differential Comment , Platelet Estimate ADEQUATE, RBC Morphology NORM C+C 02/02/20 14:20: Sodium 144, Potassium 4.0, Chloride 112 H, Carbon Dioxide 24.0, Anion Gap 8, BUN 42 H, Creatinine 2.32 H, Estim Creat Clear Calc 29.63, Est GFR (MDRD) Af Amer 36 L, Est GFR (MDRD) Non-Af 30 L, BUN/Creatinine Ratio 18.1, Glucose 78, Calcium 9.4, Troponin I 0.153 H 02/02/20 14:20: B-Natriuretic Peptide 280.9 H Current Medications Bumetanide 25 mg/ (Miscellaneous Information) 100 mls @ 2 mls/hr CONT INF .Q50H [facility] Last Admin: 02/02/20 16:20 Dose: 0.5 mg/hr, 2 mls/hr Documented by: Assessment/Plan All Active Problems (Last Updated 06/04/19 @ 18:24 by Jahaira Price) CHF (congestive heart failure) (Acute) Elevated troponin (Acute) NSVT (nonsustained ventricular tachycardia) (Resolved) Hypoglycemia (Resolved) Slurred speech (Resolved) 1. Acute on chronic heart failure with reduced ejection fraction/nonischemic cardiomyopathy-chest x-ray consistent with mild CHF. BNP 280. Echocardiogram May 2019 demonstrated an EF of 40%. Cardiology consulted. Bumex drip. Repeat echo. Trend enzymes. Check TSH, mag. Strict I&O. Daily weight. Mikie wraps bilateral lower extremities. 2. Abnormal troponin-possibly secondary to #1. Trend enzymes. Cardiology following. 3. Chronic kidney disease stage III-at baseline, trend BMP. 4. Hypertension-stable, continue amlodipine, carvedilol, quinapril. 5. Hyperlipidemia-continue statin. 6. Paroxysmal atrial fibrillation-rate controlled. Continue carvedilol, Coumadi n. 7. History of CVA-continue statin, Coumadin. 8. Type 2 diabetes [id number] with sliding scale insulin. Continue home scheduled insulin regimen. 9. Chronic anemia-at baseline. Trend CBC. DVT prophylaxis-Coumadin This patient was seen by PONCHO Gudino under the supervision of Dr. Mai. <Vargas Mai - Last Filed: 02/02/20 19:26> History of Present Illness The patient is a 70 year old M [] Past Medical History Medical History: Medical History (Last Updated 06/04/19 @ 18:24 by Jahaira Price) Non-ischemic cardiomyopathy (Chronic) I42.8 Incomplete left bundle branch block (Chronic) I44.7 Secondary pulmonary arterial hypertension (Chronic) I27.21 Paroxysmal atrial fibrillation (Chronic) I48.0 Essential (primary) hypertension (Chronic) I10 Hyperlipidemia (Chronic) E78.5 CVA (cerebral vascular accident) (Chronic) Onset Date: 12/2017 I63.9 NSVT (nonsustained ventricular tachycardia) (Resolved) I47.2 CKD (chronic kidney disease), stage III (Chronic) N18.3 Anemia D64.9 Chronic low back pain M54.5, G89.29 GERD (gastroesophageal reflux disease) K21.9 Obesity E66.9 Osteoarthritis M19.90 TIA (transient ischemic attack) Onset Date: 12/2017 G45.9 Allergies furosemide [From Lasix] Allergy (Verified 02/02/20 14:03) Hives rofecoxib Allergy (Verified 02/02/20 14:03) Hives Surgical History: Surgical History (Last Reviewed 05/20/19 @ 16:[address] Tommy Harvey MD) History of back surgery Z98.890 History of knee replacement, total Z96.659 - *Family History Sibling Family History: Family History (Last Reviewed 02/02/20 @ 17:08 by PONCHO Gudino) Mother Heart disease Sister Heart disease Myocardial infarction CVA (cerebral vascular accident) Diabetes Brother CVA (cerebral vascular accident) Maternal Family History: Family History (Last Reviewed 02/02/20 @ 17:08 by PONCHO Gudino) Mother Heart disease Sister Heart disease Myocardial infarction CVA (cerebral vascular accident) Diabetes Brother CVA (cerebral vascular accident) Paternal Family History: Family History (Last Reviewed 02/02/20 @ 17:08 by PONCHO Gudino) Mother Heart disease Sister Heart disease Myocardial infarction CVA (cerebral vascular accident) Diabetes Brother CVA (cerebral vascular accident) - Physical Exam Vitals/I&O's: Vital Signs Temp Pulse Resp BP Pulse Ox 97.8 F 61 18 136/71 H 97 02/02/20 17:25 02/02/20 17:25 02/02/20 17:25 02/02/20 17:25 02/02/20 17:25 Oxygen Delivery Method Room Air Weight: 248 lb 14.43 oz Body Mass Index (BMI) 36.7 Finger Stick Blood Glucose 78 Laboratory Results 02/02/20 14:20: WBC 5.6, RBC 3.26 L, Hgb 9.7 L, Hct 30.8 L, MCV 94.5 H, MCH 29.8, MCHC 31.5 L, RDW Std Deviation 43.8, RDW Coeff of Whitney 12.8, Plt Count 218, MPV 11.9, Immature Gran % (Auto) 0.200, Neut % (Auto) 71.1 H, Lymph % (Auto) 9.7 L, [place] % (Auto) 15.3 H, Eos % (Auto) 3.2, Baso % (Auto) 0.5, Absolute Neuts (auto) 3.9, Absolute Lymphs (auto) 0.54 L, Nucleated RBC % 0, Differential Comment , Platelet Estimate ADEQUATE, RBC Morphology NORM C+C 02/02/20 14:20: Sodium 144, Potassium 4.0, Chloride 112 H, Carbon Dioxide 24.0, Anion Gap 8, BUN 42 H, Creatinine 2.32 H, Estim Creat Clear Calc 29.63, Est GFR (MDRD) Af Amer 36 L, Est GFR (MDRD) Non-Af 30 L, BUN/Creatinine Ratio 18.1, Glucose 78, Calcium 9.4, Troponin I 0.153 H 02/02/20 14:20: B-Natriuretic Peptide 280.9 H 02/02/20 17:40: Troponin I Pending Current Medications Acetaminophen (Tylenol) 650 mg PO Q6H PRN PRN PRN Reason: Pain Score 1-10/Temp > 100.7 F Amlodipine Besylate (Norvasc) 10 mg PO DAILY [facility] Atorvastatin Calcium (Lipitor) 10 mg PO QHS [facility] Carvedilol (Coreg) 25 mg PO BID [facility] Dextrose (D50w Syringe) 0 gm IV X1 PRN; Protocol PRN Reason: Hypoglycemia Ferrous Sulfate ([facility]ous Sulfate) [facility] Glucagon () 1 mg IM .X1 PRN PRN Reason: Hypoglycemia Bumetanide 25 mg/ (Miscellaneous Information) 100 mls @ 2 mls/hr CONT INF .Q50H [facility] Last Admin: 02/02/20 16:20 Dose: 0.5 mg/hr, 2 mls/hr Documented by: Sodium Chloride () 250 mls @ 15 mls/hr IV .[id number] PRN PRN Reason: Saline Flush Sodium Chloride () 250 mls @ 15 mls/hr IV .[id number] PRN PRN Reason: Additional IVPB Infusion Insulin Glargine (Lantus ([facility])) 25 units SC BID [facility] Insulin Human Lispro (Humalog Kwikpen ([facility])) 0 unit SC ACHS [facility]; Protocol Insulin Human Lispro (Humalog Kwikpen ([facility])) 10 unit SC TIDCM [facility] Insulin Human Lispro (Humalog Kwikpen ([facility])) 0 unit SC ACHS FRANCINE; Protocol Lisinopril (Zestril) 40 mg PO DAILY [facility] Non-Formulary Medication (Fenofibrate) 160 mg PO DAILY [facility] Ondansetron HCl (Zofran) 4 mg IV Q8H PRN PRN PRN Reason: NAUSEA/VOMITING Pantoprazole Sodium (Protonix) 20 mg PO DAILY [facility] Sodium Chloride () 10 - 40 ml IV UD PRN PRN Reason: SALINE FLUSH Warfarin Sodium (Coumadin ([facility])) 4 mg PO SUMOTUTHFRSA [facility] Warfarin Sodium (Coumadin ([facility])) 6 mg PO WE [facility] Addendum: Dr. Mai I personally examined the patient and reviewed the chart. I agree with the above. 70-year-old male with a history of A. fib and systolic CHF with an EF of 40% May 2019, presents with shortness of breath and increased leg swelling. He states that he is also gained about 10 to 15 pounds over the last week or so. He was started on torsemide because he is allergic to Lasix, and cardiology was consulted and recommended a Bumex drip for now. Of note his troponin on admission was elevated 0.153 and this will be repeated, however I think this is likely demand secondary to his acute exacerbation of systolic CHF. His creatinine is close to baseline so we do have room to work with his diuresis. We will continue with his home medications and monitor his Coumadin level. Inpatient E&M: 88110 Init Hosp L3
--- NOTE | 2020-02-02 17:27 | ECHOCS_ITS ---
Reason For Study: CHF Procedure This was a 2D Doppler, Color Flow transthoracic echocardiogram. The study was technically difficult. Exam performed portable in patient room. Left Ventricle Normal LV size. The estimated ejection fraction is 50 %. Unable to assess diastolic dysfunction due to arrhythmia. There is mild global hypokinesis of the left ventricle. Right Ventricle Normal RV size. Normal systolic function. Atria The left atrium is moderately enlarged. Normal right atrium. Mitral Valve Normal mitral valve. Mild (1+) eccentric mitral valve insufficiency. Tricuspid Valve The tricuspid valve is not well visualized. Mild to moderate (1-2+) tricuspid valve insufficiency. Pulmonary artery systolic pressure is 35 mmHg. Aortic Valve Trisinus/trileaflet aortic valve. Mild focal aortic valve calcification. Pulmonic Valve Normal pulmonic valve. Great Vessels Normal aortic root. The pulmonary artery is normal size. Normal inferior vena cava. Pericardium/Pleural No pericardial effusion. Medication Diluted definity 2ml given slow IV push to enhance endocardial definition. MMode/2D Measurements & Calculations LVIDd: 5.4 cm IVSd: 0.99 cm Ao root diam: 3.2 cm LVIDs: 4.5 cm LVPWd: 1.0 cm RVDd: 4.2 cm FS: 16.2 % LAV(MOD-bp): 141.0 ml LA A4 area: 33.5 cm2 LA dimension(2D): 5.6 cm LAV(MOD-bp) Indexed: 62.0 ml/m2 LAV(MOD-sp2): 143.1 ml LAV(MOD-sp4): 137.4 ml RA A4 area: 18.9 cm2 Doppler Measurements & Calculations MV E max shelly: 119.8 cm/sec Ao V2 max: 158.1 cm/sec LV V1 max: 118.5 cm/sec Ao max P.1 mmHg LV V1 max P.7 mmHg PA V2 max: 114.8 cm/sec TR max shelly: 282.1 cm/sec TR max P.9 mmHg Interpretation Summary Normal LV size. The estimated ejection fraction is 50 %. Unable to assess diastolic dysfunction due to arrhythmia. The left atrium is moderately enlarged. Contrast injection was performed. Ordering Physician: Nuria Rodriguez Referring Physician: Lester Jarvis Performed By: Crista Campos RDCS
--- NOTE | 2020-02-02 18:25 | CON.PCM_ITS ---
Problem List (1) CHF (congestive heart failure) Status: Acute Qualifiers: Heart failure type: systolic Heart failure chronicity: acute on chronic Qualified Code(s): I50.23 - Acute on chronic systolic (congestive) heart failure (2) Non-ischemic cardiomyopathy Status: Chronic (3) Elevated troponin Status: Acute (4) Paroxysmal atrial fibrillation Status: Chronic (5) Hyperlipidemia Status: Chronic Qualifiers: Hyperlipidemia type: unspecified Qualified Code(s): E78.5 - Hyperlipidemia, unspecified (6) Essential (primary) hypertension Status: Chronic (7) Secondary pulmonary arterial hypertension Status: Chronic (8) CKD (chronic kidney disease), stage III Status: Chronic Reason for Consult Date of Consultation: 02/02/20 History of Present Illness: The patient is a 70 year [id number] white male with a past cardiovascular history of atrial fibrillation, non-CAD related cardiomyopathy (based upon noninvasive studies), chronic systolic CHF, pulmonary hypertension, hyperlipidemia, hypertension, and chronic renal insufficiency who is referred for evaluation of acute on chronic systolic mediated CHF. He states for several days now he has felt somewhat more short of breath and dyspneic but his main concern has been worsening bilateral peripheral pitting edema of the lower extremities. He states instead of the usual daytime edema which appears to resolve overnight he has now noted persistent edema both daytime and nighttime. He states his weight has been going up. He notes he has been taking his medications as prescribed. He does not believe there is been any change in his dietary habits. He does not know of any other change in his medical condition. He denies ongoing chest discomfort. Again he has an element of chronic shortness of breath and dyspnea. He states he always sleeps propped up . There has been no sense of palpitations or rapid rates. He denies any near- syncope or syncope. He was evaluated in the emergency department. His troponins were indeterminate. His BNP level was elevated at 280.9. His ECG demonstrated atrial fibrillation with a left axis deviation with an incomplete left bundle branch block pattern. His chest x-ray suggested an element of increased pulmonary vascularity. He states he has an allergy to furosemide which leads to hives. He states he has been tolerating torsemide. His case was discussed between [facility] emergency department staff and the [facility] pharmacy as to what IV diuretic he may tolerate. He was subsequently placed on IV Bumex. Thus far he appears to be tolerating it without any obvious allergic type reaction. [] Past Medical History Allergies/Adverse Reactions: Allergies furosemide [From Lasix] Allergy (Verified 02/02/20 14:03) Hives rofecoxib Allergy (Verified 02/02/20 14:03) Hives Home Medications: Ambulatory Orders Medication Instructions Recorded Ascorbic Acid [Vitamin C with Vivian 500 mg PO BID 01/11/18 Hips] Carvedilol [Coreg] 25 mg PO BID 01/11/18 Insulin Glargine [Lantus SoloStar 25 units SUBCUT BID 01/11/18 Pen] Lovastatin [Mevacor] 40 mg PO QHS 01/11/18 Multivitamin [Multiple Vitamins] 1 tab PO DAILY 01/11/18 Quinapril HCl [Accupril] 40 mg PO DAILY 01/11/18 docusate sodium 100 mg capsule 100 mg PO DAILY PRN PRN 05/20/19 ferrous sulfate 325 mg (65 mg 325 mg PO DAILY 05/20/19 iron) tablet omeprazole 20 mg capsule,delayed 20 mg PO DAILY #90 cap 05/20/19 release Amlodipine [Norvasc] 10 mg PO DAILY 02/02/20 Fenofibrate 160 mg PO DAILY 02/02/20 Insulin Aspart [Novolog Flexpen 10 units SUBCUT TIDCM 02/02/20 ([facility])] Torsemide [Demadex] 10 mg PO MOWEFR 02/02/20 Warfarin [Coumadin ([facility])] 4 mg PO SUMOTUTHFRSA 02/02/20 Warfarin [Coumadin ([facility])] 6 mg PO WE 02/02/20 Past Medical History (Chronic Problems): Chronic Problems (Last Updated 06/04/19 @ 18:24 by Jahaira Price) Non-ischemic cardiomyopathy (Chronic) shelter current use of 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 (Chronic) Incomplete left bundle branch block (Chronic) Secondary pulmonary arterial hypertension (Chronic) Paroxysmal atrial fibrillation (Chronic) Essential (primary) hypertension (Chronic) Hyperlipidemia (Chronic) CVA (cerebral vascular accident) (Chronic 12/2017) CKD (chronic kidney disease), stage III (Chronic) Surgical History: total knee arthroplasty - bilat Psychiatric History: No pertinent psych hx - *Family History Sibling Family History: Family History (Last Reviewed 02/02/20 @ 17:08 by PONCHO Gudnio) Mother Heart disease Sister Heart disease Myocardial infarction CVA (cerebral vascular accident) Diabetes Brother CVA (cerebral vascular accident) History Items: Stroke Maternal Family History: Family History (Last Reviewed 02/02/20 @ 17:08 by PONCHO Gudino) Mother Heart disease Sister Heart disease Myocardial infarction CVA (cerebral vascular accident) Diabetes Brother CVA (cerebral vascular accident) Paternal Family History: Family History (Last Reviewed 02/02/20 @ 17:08 by PONCHO Gudino) Mother Heart disease Sister Heart disease Myocardial infarction CVA (cerebral vascular accident) Diabetes Brother CVA (cerebral vascular accident) History Items: - - Denies known paternal medical history including cardiac history. Lives: Spouse/ Significant Other Smoking Status: Never smoker Alcohol: None Drugs: None Review of Systems - Review of Systems General: Denies: Fever, Night Sweats, Fatigue Cardiovascular: Reports: Shortness of Breath, Peripheral Edema. Denies: Chest Discomfort, Orthopnea, PND, Palpitations, Lightheadedness, Dizziness, Near Syncope, Syncope Respiratory: Reports: Shortness of Breath. Denies: Cough, Sputum Production, Hemoptysis Gastrointestinal: Denies: Hematemesis, Hematochezia, Melena Genitourinary: Denies: Dysuria, Hematuria Skin: Denies: Rash Subjectve: This is a 70-year-old white male who appears to be resting comfortably at the moment in no acute distress. Objective: Vital Signs Temp Pulse Resp BP Pulse Ox 97.8 F 61 18 136/71 H 97 02/02/20 17:25 02/02/20 17:25 02/02/20 17:25 02/02/20 17:25 02/02/20 17:25 Oxygen Delivery Method Room Air Weight: 248 lb 14.43 oz Body Mass Index (BMI) 36.7 Finger Stick Blood Glucose 78 Intake and Output for Last 24 Hours 01/31/20 02/01/20 02/02/20 23:59 23:59 23:59 Intake Total 0 / 0 Balance 0 / 0 General: Awake, Alert, Oriented x 3, Cooperative, No Acute Distress, Obese HEENT: Atraumatic, Normocephalic, PERRL, EOMI, Sclera Non Icteric Neck: Supple, Good ROM, No JVD Lungs: Diminished Gerald Bases Cardiovascular: Irregular Rhythm, Normal S1, Normal S2 Vascular: No Carotid Bruits Abdomen: Bowel Sounds Present, Soft, Non Tender Extremities: Severe RLE Edema, Severe LLE Edema Neurological: No Focal Motor or Sensory Deficit Psych/Mental Status: Appropriate 02/02/20 14:20: WBC 5.6, RBC 3.26 L, Hgb 9.7 L, Hct 30.8 L, MCV 94.5 H, MCH 29.8, MCHC 31.5 L, Plt Count 218, MPV 11.9, Immature Gran % (Auto) 0.200, Neut % (Auto) 71.1 H, Lymph % (Auto) 9.7 L, [place] % (Auto) 15.3 H, Eos % (Auto) 3.2, Baso % (Auto) 0.5, Absolute Neuts (auto) 3.9, Nucleated RBC % 0 02/02/20 14:20: Sodium 144, Potassium 4.0, Chloride 112 H, Carbon Dioxide 24.0, Anion Gap 8, BUN 42 H, Creatinine 2.32 H, Est GFR (MDRD) Af Amer 36 L, Est GFR (MDRD) Non-Af 30 L, BUN/Creatinine Ratio 18.1, Glucose 78, Calcium 9.4, Troponin I 0.153 H 02/02/20 14:20: B-Natriuretic Peptide 280.9 H 02/02/20 17:40: Troponin I 0.145 H Rhythm: Atrial fibrillation EKG: Atrial fibrillation; left axis deviation; incomplete left bundle branch block pattern ECHO: 06/04/2019 Interpretation Summary Normal LV size. Mild to moderate global left ventricular systolic dysfunction. The estimated ejection fraction is 40 %. Unable to assess diastolic dysfunction due to arrhythmia. The left atrium is moderately enlarged. The right atrium is moderately enlarged. Stress Test: ??2017: [facility] Nuclear imaging summary: No inducible ischemia on MPI. Normal-appearing LV function CXR: [place] evaluation: Increased pulmonary vascularity; please see official report Assessment/Plan 1. Acute on chronic systolic mediated CHF The patient appears to have acute on chronic systolic mediated CHF. He is going to be monitored. His cardiac enzymes will be followed. His ECG can be followed. He is going to have a follow-up echocardiogram to reassess his left ventricular wall motion systolic function. He may eventually need further evaluation with diagnostic cardiac catheterization. In the interim he will continue medical therapy. He has been placed on IV Bumex. Hopefully this will help with his symptoms and objective findings. His other medications can be adjusted as needed. 2. Indeterminate troponin I levels He does have indeterminate troponin I levels. Is unclear whether this is related to a type II event secondary to his acute on chronic systolic mediated CHF. However there is still a concern about the possibility of underlying CAD which has not been brought out by his previous noninvasive studies. Thus he may eventually need further evaluation with diagnostic cardiac catheterization. In the interim he will continue medical therapy for the possibility of CAD as deemed appropriate. 3. Non-ischemic mediated cardiomyopathy There is concern he has had a nonischemic mediated cardiomyopathy. However with his troponin I levels there is a concern as to whether or not this is a type II event secondary to his acute on chronic systolic mediated CHF versus being related to underlying CAD. Continue his monitoring. He will continue his noninvasive valuation. He will continue medical therapy. However he may need eventual evaluation of his coronary anatomy in the cardiac catheterization laboratory. 4. Paroxysmal atrial fibrillation He is in atrial fibrillation at this time. He will continue rate control therapy. He has been on 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 therapy with warfarin/Coumadin. This may need to be interrupted for future evaluation with cardiac catheterization once he is clinically improved from his acute on chronic systolic mediated CHF. 5. Pulmonary hypertension He has a history of pulmonary hypertension. Hopefully his pulmonary pressures can be reassessed noninvasively with a transthoracic echocardiogram. 6. Hyperlipidemia He will continue risk factor modification medical therapy as deemed appropriate. 7. Hypertension His blood pressure can be followed. We will continue medical therapy. 8. Chronic renal insufficiency He does have an element of chronic renal insufficiency. This will have to be taken into consideration with his ongoing evaluation/care/medications. It also to be taken into consideration if he proceeds with an IV contrast study such as diagnostic cardiac catheterization in the future. Comment: The patient's case was discussed and reviewed with the patient as well as Dr. Kevin from the [facility] emergency department staff. This note was generated using a voice recognition system and there may be incorrect words, spelling or punctuation that were not noted when reviewing the office note prior to saving.
[2020-02-02 18:54] LABS: Prothrombin Time (Protime)PT. 37.4 SECONDS (11.7-14.9)
[2020-02-02 20:09] LABS: International Normalized Ratio 3.8
[2020-02-02] MEDS: Atorvastatin Calcium 10 MG Tablet PO (21:22)
[2020-02-02] MEDS: Carvedilol 25 MG Tablet PO (21:22)
[2020-02-02 21:31] LABS: Bedside Glucose 140 mg/dL (70-110)
[2020-02-02 23:44] LABS: Magnesium 2.3 mg/dL (1.6-2.6); Thyroid Stim Hormone (TSH) 1.57 uIU/mL (0.358-3.74)
[2020-02-03] VITALS (9 sets, daily range): BP systolic 106–123; BP diastolic 54–69; PULSE 59–82; RESP 16; TEMP 36.4–36.9; O2SAT 96–100
--- NOTE | 2020-02-03 05:55 | EKG12_ITS ---
Test Reason : AM EKG Blood Pressure : / mmHG Vent. Rate : 063 BPM Atrial Rate : 047 BPM P-R Int : 000 ms QRS Dur : 124 ms QT Int : 440 ms P-R-T Axes : 000 -53 078 degrees QTc Int : 450 ms Atrial fibrillation Left axis deviation 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 Abnormal ECG When compared with ECG of 02-FEB-2020 15:02, MANUAL COMPARISON REQUIRED, DATA IS UNCONFIRMED Confirmed by MURALI BESS, YONY ([id number]), image editor BUTCH REED ([id number]) on 02/08/2020 11:47:32 AM Referred By: SUDHA Confirmed By:WAYNE CARRION MD
[2020-02-03 06:29] LABS: Absolute Lymphocyte Count 0.45 X10^3/uL (0.83-4.51); Absolute Neutrophil Count 3.2 X10^3/uL (2.0-7.7); Basophil# 0.03 X10^3/uL; Basophil% 0.7 % (0-1); Eosinophil# 0.21 X10^3/uL; Eosinophils% 4.6 % (0-5); Hematocrit 31.7 % (40-54); Hemoglobin 10.1 g/dL (13.0-16.5); Lymphocyte # 0.45 X10^3/ul (4.0); Lymphocyte % 9.8 % (19-41); Mean Corp Hgb Conc 31.9 g/dL (32-36); Mean Corpuscular Hgb 29.8 pg (27.0-32.0); Mean Corpuscular Volume 93.5 fL (80-94); Mean Platelet Vol. 11.8 fl (6.2-12.0); Monocyte# 0.64 X10^3/uL; NRBC Flagged by Analyzer 0 % (0-5); Neutrophil # 3.23 X10^3/uL (2.7-7.7); Neutrophil % 70.7 % (47-70); POSITIVE DIFFERENTIAL YES; Platelet Count 236 K/mm3 (150-450); RBC Distribution Width CV 12.9 % (11.6-14.6); RBC Distribution Width SD 43.5 fl (35.1-43.9); Red Blood Count 3.39 M/mm3 (4.6-6.2); White Blood Count 4.6 K/mm3 (4.4-11.0)
[2020-02-03 06:42] LABS: Differential Indicated SCAN CRITERIA MET
[2020-02-03 06:48] LABS: International Normalized Ratio 3.5
[2020-02-03 06:50] LABS: Bedside Glucose 109 mg/dL (70-110)
[2020-02-03 06:55] LABS: Prothrombin Time (Protime)PT. 34.6 SECONDS (11.7-14.9)
[2020-02-03 07:00] LABS: Anion Gap 8 (5-15); BUN 37 mg/dL (7-18); BUN/Creat Ratio 16.4 RATIO (10-20); Calcium,Total 9.4 mg/dL (8.5-10.1); Chloride 105 mmol/L (98-107); Creatinine, Serum 2.26 mg/dL (0.70-1.30); EST Glomerular Filtration Rate 31 mL/min (>60); Est Glom Filt Rate - Afr Amer 37 mL/min (>60); Estimated Creatinine Clearance 30.41 ml/min; Glucose 107 mg/dL (74-106); Potassium 3.4 mmol/L (3.5-5.1); Sodium Level 142 mmol/L (136-145)
[2020-02-03 07:09] LABS: Platelet Estimate ADEQUATE (ADEQ)
[2020-02-03] MEDS: Acetaminophen 325 MG Tablet 650 MG PO (08:01)
[2020-02-03] MEDS: Insulin Lispro 100 UNIT/ML INSULN.PEN 10 UNIT SC ×3 (08:02→17:02)
[2020-02-03] MEDS: Ferrous Sulfate 325 MG Tablet PO (08:02)
--- NOTE | 2020-02-03 08:34 | PCM.PN.CARD ---
Subjectve: Patient seen and evaluated. Objective: Vital Signs Temp Pulse Resp BP Pulse Ox 98.3 F 82 16 106/54 L 96 02/03/20 03:20 02/03/20 06:49 02/03/20 03:20 02/03/20 03:20 02/03/20 03:20 Oxygen Delivery Method Room Air Weight: 239 lb 6.752 oz Body Mass Index (BMI) 36.7 Finger Stick Blood Glucose 78 Intake and Output for Last 24 Hours 02/01/20 02/02/20 02/03/20 23:59 23:59 23:59 Intake Total 215.3 / 215.3 112.03 / 112.03 Output Total 1800 / 1800 1875 / 1875 Balance -1584.7 / -1584.7 -1762.97 / -1762.97 General: Awake, Alert, Oriented x 3 HEENT: PERRL, EOMI, Sclera Non Icteric Neck: Supple, Good ROM, No Lymph Node Enlargement Lungs: Clear to auscultation Cardiovascular: Irregular Rhythm, Normal S1, Normal S2, No Murmurs, No Rubs, No Gallops Vascular: No Carotid Bruits, Normal Femoral Pulses, Normal Radial Pulses, Normal Dorsalis Pedal Pulse, Normal Posterior Tibial Pulses Abdomen: Bowel Sounds Present, Soft, Non Tender, No HSM, No Organomegaly Extremities: No Cyanosis, No Clubbing, Bilateral Edema +1 Lymphatic: No Lymph Node Enlargement Neurological: No Focal Motor or Sensory Deficit Psych/Mental Status: Appropriate 02/02/20 14:20: WBC 5.6, RBC 3.26 L, Hgb 9.7 L, Hct 30.8 L, MCV 94.5 H, MCH 29.8, MCHC 31.5 L, Plt Count 218, MPV 11.9, Immature Gran % (Auto) 0.200, Neut % (Auto) 71.1 H, Lymph % (Auto) 9.7 L, [place] % (Auto) 15.3 H, Eos % (Auto) 3.2, Baso % (Auto) 0.5, Absolute Neuts (auto) 3.9, Nucleated RBC % 0 02/02/20 14:20: Sodium 144, Potassium 4.0, Chloride 112 H, Carbon Dioxide 24.0, Anion Gap 8, BUN 42 H, Creatinine 2.32 H, Est GFR (MDRD) Af Amer 36 L, Est GFR (MDRD) Non-Af 30 L, BUN/Creatinine Ratio 18.1, Glucose 78, Calcium 9.4, Troponin I 0.153 H 02/02/20 14:20: B-Natriuretic Peptide 280.9 H 02/02/20 14:20: Magnesium 2.3 02/02/20 14:30: PT 37.4 H, INR 3.8 H* 02/02/20 17:40: Troponin I 0.145 H 02/02/20 20:29: Troponin I 0.158 H 02/03/20 06:06: WBC 4.6, RBC 3.39 L, Hgb 10.1 L, Hct 31.7 L, MCV 93.5, MCH 29.8, MCHC 31.9 L, Plt Count 236, MPV 11.8, Immature Gran % (Auto) 0.200, Neut % (Auto) 70.7 H, Lymph % (Auto) 9.8 L, [place] % (Auto) 14.0 H, Eos % (Auto) 4.6, Baso % (Auto) 0.7, Absolute Neuts (auto) 3.2, Nucleated RBC % 0 02/03/20 06:06: PT 34.6 H, INR 3.5 H* 02/03/20 06:06: Sodium 142, Potassium 3.4 L, Chloride 105, Carbon Dioxide 29.0, Anion Gap 8, BUN 37 H, Creatinine 2.26 H, Est GFR (MDRD) Af Amer 37 L, Est GFR (MDRD) Non-Af 31 L, BUN/Creatinine Ratio 16.4, Glucose 107 H, Calcium 9.4 Rhythm: EKG: ECHO: Stress Test: Cardiac Cath: PCI: CT Surgery: Holter monitor: EPS: PPM: CXR: Chest CT Scan: Medical Necessity - Tobacco Use Smoking Status: Never smoker Assessment/Plan 1. Acute on chronic systolic mediated CHF The patient appears to have acute on chronic systolic mediated CHF. He is going to have a follow-up echocardiogram to reassess his left ventricular wall motion systolic function. In the interim he will continue medical therapy. He has been placed on IV Bumex. Hopefully this will help with his symptoms and objective findings. 2. Indeterminate troponin I levels He does have indeterminate troponin I levels. It Is unclear whether this is related to a type II event secondary to his acute on chronic systolic mediated CHF. However there is still a concern about the possibility of underlying CAD which has not been brought out by his previous noninvasive studies. Thus he may eventually need further evaluation with diagnostic cardiac catheterization.In the interim he will continue medical therapy for the possibility of CAD as deemed appropriate. 3. Non-ischemic mediated cardiomyopathy There is concern he has had a nonischemic mediated cardiomyopathy. Continue his monitoring. He will continue his noninvasive valuation. He will continue medical therapy. However he may need eventual evaluation of his coronary anatomy in the cardiac catheterization laboratory. This may likely be performed as an outpatient. 4. Paroxysmal atrial fibrillation He is in atrial fibrillation at this time. He will continue rate control therapy. He has been on 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 therapy with warfarin/Coumadin. This may need to be interrupted for future evaluation with cardiac catheterization once he is clinically improved from his acute on chronic systolic mediated CHF. 5. Pulmonary hypertension He has a history of pulmonary hypertension. Hopefully his pulmonary pressures can be reassessed noninvasively with a transthoracic echocardiogram. 6. Hyperlipidemia He will continue risk factor modification medical therapy as deemed appropriate. 7. Hypertension His blood pressure can be followed. We will continue medical therapy. 8. Chronic renal insufficiency He does have some renal dysfunction and will need to be watch his creatinine. Depending on the amount of diuresis when able to achieve further recommendations will be undertaken. Thank you for allowing me to participate in the care of your patient. Please don't hesitate to call if any issues arise.
[2020-02-03] MEDS: Carvedilol 25 MG Tablet PO ×2 (09:01→21:02)
[2020-02-03] MEDS: Lisinopril 40 MG Tablet PO (09:01)
[2020-02-03] MEDS: Pantoprazole Sodium 20 MG Tablet PO (09:01)
[2020-02-03 10:51] LABS: Bedside Glucose 197 mg/dL (70-110)
[2020-02-03] MEDS: Insulin Lispro 100 UNIT/ML INSULN.PEN SC ×2 (11:09→21:02)
--- NOTE | 2020-02-03 13:07 | PN_ITS ---
<Nuria Rodriguez - Last Filed: 02/03/20 13:18> Patient Problems: Active and Suspected Problems (Last Updated 06/04/19 @ 18:24 by Jahaira Price) CHF (congestive heart failure) (Acute) Elevated troponin (Acute) Subjective: Patient seen and examined. Reports significant improvement in shortness of breath and swelling. Denies chest pain or other symptoms. - Physical Exam Vitals/I&O's: Vital Signs Temp Pulse Resp BP Pulse Ox 97.7 F L 69 16 123/69 H 98 02/03/20 08:59 02/03/20 10:54 02/03/20 08:59 02/03/20 08:59 02/03/20 08:59 Oxygen Delivery Method Room Air Weight: 239 lb 6.752 oz Body Mass Index (BMI) 36.7 Finger Stick Blood Glucose 78 Intake and Output for Last 24 Hours 02/01/20 02/02/20 02/03/20 23:59 23:59 23:59 Intake Total 215.3 / 215.3 492.03 / 492.03 Output Total 1800 / 1800 4200 / 4200 Balance -1584.7 / -1584.7 -3707.97 / -3707.97 General: Alert, Oriented x3, Cooperative HEENT: Atraumatic, PERRLA, EOMI, Normocephalic Neck: Supple, No JVD, Negative Carotid Bruits Lungs: Clear to auscultation, Diminished Cardiovascular: Regular rate, Regular Rhythm, Normal S1, Normal S2, No murmurs Abdomen: Bowel Sounds Present, Soft, Non Tender, Non-Distended Extremities: No clubbing, No cyanosis, Capillary Refill Less than 3 Seconds, Edema - Mikei wraps in place, bilateral lower extremities Skin: No rashes, No breakdown Musculoskeletal: No Tenderness to Palpation of Joints or Extremities Neurological: Cranial nerves II-XII grossly intact Psych/Mental Status: Normal Affect, Appropriate Laboratory Results 02/02/20 14:20: WBC 5.6, RBC 3.26 L, Hgb 9.7 L, Hct 30.8 L, MCV 94.5 H, MCH 29.8, MCHC 31.5 L, RDW Std Deviation 43.8, RDW Coeff of Whitney 12.8, Plt Count 218, MPV 11.9, Immature Gran % (Auto) 0.200, Neut % (Auto) 71.1 H, Lymph % (Auto) 9.7 L, Sabine % (Auto) 15.3 H, Eos % (Auto) 3.2, Baso % (Auto) 0.5, Absolute Neuts (auto) 3.9, Absolute Lymphs (auto) 0.54 L, Nucleated RBC % 0, Differential Comment , Platelet Estimate ADEQUATE, RBC Morphology NORM C+C 02/02/20 14:20: Sodium 144, Potassium 4.0, Chloride 112 H, Carbon Dioxide 24.0, Anion Gap 8, BUN 42 H, Creatinine 2.32 H, Estim Creat Clear Calc 29.63, Est GFR (MDRD) Af Amer 36 L, Est GFR (MDRD) Non-Af 30 L, BUN/Creatinine Ratio 18.1, Glucose 78, Calcium 9.4, Troponin I 0.153 H 02/02/20 14:20: B-Natriuretic Peptide 280.9 H 02/02/20 14:20: Magnesium 2.3, TSH 1.57 02/02/20 14:30: PT 37.4 H, INR 3.8 H* 02/02/20 17:40: Troponin I 0.145 H 02/02/20 20:29: Troponin I 0.158 H 02/02/20 21:21: POC Glucose 140 H 02/03/20 06:06: WBC 4.6, RBC 3.39 L, Hgb 10.1 L, Hct 31.7 L, MCV 93.5, MCH 29.8, MCHC 31.9 L, RDW Std Deviation 43.5, RDW Coeff of Whitney 12.9, Plt Count 236, MPV 11.8, Immature Gran % (Auto) 0.200, Neut % (Auto) 70.7 H, Lymph % (Auto) 9.8 L, Sabine % (Auto) 14.0 H, Eos % (Auto) 4.6, Baso % (Auto) 0.7, Absolute Neuts (auto) 3.2, Absolute Lymphs (auto) 0.45 L, Nucleated RBC % 0, Differential Comment COMMENT, Platelet Estimate ADEQUATE 02/03/20 06:06: PT 34.6 H, INR 3.5 H* 02/03/20 06:06: Sodium 142, Potassium 3.4 L, Chloride 105, Carbon Dioxide 29.0, Anion Gap 8, BUN 37 H, Creatinine 2.26 H, Estim Creat Clear Calc 30.41, Est GFR (MDRD) Af Amer 37 L, Est GFR (MDRD) Non-Af 31 L, BUN/Creatinine Ratio 16.4, Glucose 107 H, Calcium 9.4 02/03/20 06:43: POC Glucose 109 02/03/20 10:46: POC Glucose 197 H Current Medications Acetaminophen (Tylenol) 650 mg PO Q6H PRN PRN PRN Reason: Pain Score 1-10/Temp > 100.7 F Last Admin: 02/03/20 08:01 Dose: 650 mg Documented by: Atorvastatin Calcium (Lipitor) 10 mg PO QHS [facility] Last Admin: 02/02/20 21:22 Dose: 10 mg Documented by: Carvedilol (Coreg) 25 mg PO BID [facility] Last Admin: 02/03/20 09:01 Dose: 25 mg Documented by: Dextrose (D50w Syringe) 0 gm IV X1 PRN; Protocol PRN Reason: Hypoglycemia Ferrous Sulfate (Ferrous Sulfate) 325 mg PO DAILYCM [facility] Last Admin: 02/03/20 08:02 Dose: 325 mg Documented by: Glucagon () 1 mg IM .X1 PRN PRN Reason: Hypoglycemia Bumetanide 25 mg/ (Miscellaneous Information) 100 mls @ 2 mls/hr CONT INF .Q50H [facility] Last Infusion: 02/03/20 06:00 Dose: 0.5 mg/hr, 2 mls/hr Documented by: Sodium Chloride () 250 mls @ 15 mls/hr IV .[id number] PRN PRN Reason: Saline Flush Sodium Chloride () 250 mls @ 15 mls/hr IV .[id number] PRN PRN Reason: Additional IVPB Infusion Insulin Glargine (Lantus (Bkc)) 25 units SC BID [facility] Last Admin: 02/03/20 09:00 Dose: 25 u Documented by: Insulin Human Lispro (Humalog Kwikpen (Bkc)) 10 unit SC TIDCM [facility] Last Admin: 02/03/20 11:09 Dose: 10 units Documented by: Insulin Human Lispro (Humalog Kwikpen (Bkc)) 0 unit SC ACHS [facility]; Protocol Last Admin: 02/03/20 11:09 Dose: 11 unit Documented by: Lisinopril (Zestril) 40 mg PO DAILY [facility] Last Admin: 02/03/20 09:01 Dose: 40 mg Documented by: Ondansetron HCl (Zofran) 4 mg IV Q8H PRN PRN PRN Reason: NAUSEA/VOMITING Pantoprazole Sodium (Protonix) 20 mg PO DAILY [facility] Last Admin: 02/03/20 09:01 Dose: 20 mg Documented by: Sodium Chloride () 10 - 40 ml IV UD PRN PRN Reason: SALINE FLUSH Medical Necessity - Tobacco Use Smoking Status: Never smoker Assessment/Plan All Active Problems (Last Updated 06/04/19 @ 18:24 by Jahaira Price) CHF (congestive heart failure) (Acute) Elevated troponin (Acute) NSVT (nonsustained ventricular tachycardia) (Resolved) Hypoglycemia (Resolved) Slurred speech (Resolved) 1. Acute on chronic heart failure with reduced ejection fraction/nonischemic cardiomyopathy-chest x-ray consistent with mild CHF. BNP 280. Echocardiogram May 2019 demonstrated an EF of 40%. Cardiology consulted. Bumex drip. Repeat echo pending. Trend enzymes. Strict I&O. Daily weight. Mikie wraps bilateral lower extremities. Per daily weights, patient down 10lbs since admission. 2. Abnormal troponin-suspect demand ischemia related to #1. Cardiology following. Patient may need a cardiac catheterization in the future. 3. Chronic kidney disease stage III-at baseline, trend BMP. 4. Hypertension-stable, continue amlodipine, carvedilol, quinapril. 5. Hyperlipidemia-continue statin. 6. Paroxysmal atrial fibrillation-rate controlled. Continue carvedilol, Coumadin. 7. History of CVA-continue statin, Coumadin. 8. Type 2 diabetes [id number]-[id number] with sliding scale insulin. Continue home scheduled insulin regimen. 9. Chronic anemia-at baseline. Trend CBC. DVT prophylaxis-Coumadin This patient was seen by PONCHO Gudino under the supervision of Dr. Mai. <Vargas Mai F - Last Filed: 02/03/20 14:59> - Physical Exam Vitals/I&O's: Vital Signs Temp Pulse Resp BP Pulse Ox 97.7 F L 69 16 123/69 H 98 02/03/20 08:59 02/03/20 10:54 02/03/20 08:59 02/03/20 08:59 02/03/20 08:59 Oxygen Delivery Method Room Air Weight: 239 lb 6.752 oz Body Mass Index (BMI) 36.7 Finger Stick Blood Glucose 78 Intake and Output for Last 24 Hours 02/01/20 02/02/20 02/03/20 23:59 23:59 23:59 Intake Total 215.3 / 215.3 492.03 / 492.03 Output Total 1800 / 1800 4200 / 4200 Balance -1584.7 / -1584.7 -3707.97 / -3707.97 Laboratory Results 02/02/20 14:20: WBC 5.6, RBC 3.26 L, Hgb 9.7 L, Hct 30.8 L, MCV 94.5 H, MCH 29.8, MCHC 31.5 L, RDW Std Deviation 43.8, RDW Coeff of Whitney 12.8, Plt Count 218, MPV 11.9, Immature Gran % (Auto) 0.200, Neut % (Auto) 71.1 H, Lymph % (Auto) 9.7 L, Sabine % (Auto) 15.3 H, Eos % (Auto) 3.2, Baso % (Auto) 0.5, Absolute Neuts (auto) 3.9, Absolute Lymphs (auto) 0.54 L, Nucleated RBC % 0, Differential Comment , Platelet Estimate ADEQUATE, RBC Morphology NORM C+C 02/02/20 14:20: Sodium 144, Potassium 4.0, Chloride 112 H, Carbon Dioxide 24.0, Anion Gap 8, BUN 42 H, Creatinine 2.32 H, Estim Creat Clear Calc 29.63, Est GFR (MDRD) Af Amer 36 L, Est GFR (MDRD) Non-Af 30 L, BUN/Creatinine Ratio 18.1, Glucose 78, Calcium 9.4, Troponin I 0.153 H 02/02/20 14:20: B-Natriuretic Peptide 280.9 H 02/02/20 14:20: Magnesium 2.3, TSH 1.57 02/02/20 14:30: PT 37.4 H, INR 3.8 H* 02/02/20 17:40: Troponin I 0.145 H 02/02/20 20:29: Troponin I 0.158 H 02/02/20 21:21: POC Glucose 140 H 02/03/20 06:06: WBC 4.6, RBC 3.39 L, Hgb 10.1 L, Hct 31.7 L, MCV 93.5, MCH 29.8, MCHC 31.9 L, RDW Std Deviation 43.5, RDW Coeff of Whitney 12.9, Plt Count 236, MPV 11.8, Immature Gran % (Auto) 0.200, Neut % (Auto) 70.7 H, Lymph % (Auto) 9.8 L, Sabine % (Auto) 14.0 H, Eos % (Auto) 4.6, Baso % (Auto) 0.7, Absolute Neuts (auto) 3.2, Absolute Lymphs (auto) 0.45 L, Nucleated RBC % 0, Differential Comment COMMENT, Platelet Estimate ADEQUATE 02/03/20 06:06: PT 34.6 H, INR 3.5 H* 02/03/20 06:06: Sodium 142, Potassium 3.4 L, Chloride 105, Carbon Dioxide 29.0, Anion Gap 8, BUN 37 H, Creatinine 2.26 H, Estim Creat Clear Calc 30.41, Est GFR (MDRD) Af Amer 37 L, Est GFR (MDRD) Non-Af 31 L, BUN/Creatinine Ratio 16.4, Glucose 107 H, Calcium 9.4 02/03/20 06:43: POC Glucose 109 02/03/20 10:46: POC Glucose 197 H Current Medications Acetaminophen (Tylenol) 650 mg PO Q6H PRN PRN PRN Reason: Pain Score 1-10/Temp > 100.7 F Last Admin: 02/03/20 08:01 Dose: 650 mg Documented by: Atorvastatin Calcium (Lipitor) 10 mg PO QHS [facility] Last Admin: 02/02/20 21:22 Dose: 10 mg Documented by: Carvedilol (Coreg) 25 mg PO BID [facility] Last Admin: 02/03/20 09:01 Dose: 25 mg Documented by: Dextrose (D50w Syringe) 0 gm IV X1 PRN; Protocol PRN Reason: Hypoglycemia [facility]ous Sulf[facility]) [facility] Last Admin: 02/03/20 08:02 Dose: 325 mg Documented by: Glucagon () 1 mg IM .X1 PRN PRN Reason: Hypoglycemia Bumetanide 25 mg/ (Miscellaneous Information) 100 mls @ 2 mls/hr CONT INF .Q50H [facility] Last Infusion: 02/03/20 06:00 Dose: 0.5 mg/hr, 2 mls/hr Documented by: Sodium Chloride () 250 mls @ 15 mls/hr IV .[id number] PRN PRN Reason: Saline Flush Sodium Chloride () 250 mls @ 15 mls/hr IV .[id number] PRN PRN Reason: Additional IVPB Infusion Insulin Glargine (Lantus (Bk)) 25 units SC BID [facility] Last Admin: 02/03/20 09:00 Dose: 25 u Documented by: Insulin Human Lispro (Humalog Kwikpen ([facility])) 10 unit SC TIDCM [facility] Last Admin: 02/03/20 11:09 Dose: 10 units Documented by: Insulin Human Lispro (Humalog Kwikpen ([facility])) 0 unit SC ACHS [facility]; Protocol Last Admin: 02/03/20 11:09 Dose: 11 unit Documented by: Lisinopril (Zestril) 40 mg PO DAILY [facility] Last Admin: 02/03/20 09:01 Dose: 40 mg Documented by: Ondansetron HCl (Zofran) 4 mg IV Q8H PRN PRN PRN Reason: NAUSEA/VOMITING Pantoprazole Sodium (Protonix) 20 mg PO DAILY [facility] Last Admin: 02/03/20 09:01 Dose: 20 mg Documented by: Sodium Chloride () 10 - 40 ml IV UD PRN PRN Reason: SALINE FLUSH Addendum: Dr. Mai I personally examined the patient and reviewed the chart. I agree with the above. 70-year-old male with a history of A. fib and systolic CHF with an EF of 40% May 2019, presents with shortness of breath and increased leg swelling. He states that he is also gained about 10 to 15 pounds over the last week or so. He was started on torsemide because he is allergic to Lasix, and cardiology was consulted and recommended a Bumex drip for now. He is down about 5 L and is lost about 12 pounds of water weight. Of note his troponin on admission was elevated 0.153 and he will have an echo today for further evaluation, however I think this is likely demand secondary to his acute exacerbation of systolic CHF. His creatinine is close to baseline so we do have room to work with his diuresis. Currently his INR is supratherapeutic therefore will hold his Coumadin. Inpatient E&M: 59573 Subs Hosp L2
--- NOTE | 2020-02-03 13:37 | CASEMGMT ---
ANA PAULA OCHOA assessment: Face to Face with patient for initial transition planning/care coordination assessment. ANA PAULA OCHOA introduced self and role at [facility], pt voices understanding and consents to assessment at this time. Pt is sitting up in bed on room air in no distress at this time. Pt is A/Ox4 at this time and answers all questions appropriately at this time. Care providers, pharmacy, and demographics verified at this time. Presentation: SOB w/ edema to lower legs Admitting dx: CHF exac PCP: Matheus Specialists: panfilo Sanchez Preferred Pharmacy: [facility] mail order Insurance: [employer] Prescription Benefit: [employer] Living Will/HPOA: Pt states is unsure if he has a LW/HPOA at this time. Pt declines AD info at this time, stating 'I don't want to do anything without my .' LNOK: Magaly Irwin, Living Arrangements: Pt states lives with in mobile home with 3 steps in and states no concerns at home at this time. Pt states is independent with ADL's. Transportation: Pt states drives self or drives and states no transportation concerns at this time. DME/HHC: Pt states has the following DME: cane, crutches, walker, stool to get into shower, and grab bars. Pt states no need for any further DME at this time. Pt states has had HHC in the past but has not been to SNF. Pt states no concerns with going home at time of discharge. Pt states is retired. Pt states does not smoke or drink ETOH. Pt states no further concerns/needs at this time. CM to follow for any further discharge planning/needs. Advised pt to ask for CM if any further questions/concerns/needs arise, voices understanding. Pt Goal: Home [place] ANA PAULA OCHOA
--- NOTE | 2020-02-03 15:08 | CASEMGMT ---
Social Work Palliative Medicine Screen completed due to dx of CHF. Pt with score of 3, no referral indicated at this time but will reconsider if condition deteriorates. HEYDI Wu
[2020-02-03 17:11] LABS: Bedside Glucose 89 mg/dL (70-110)
[2020-02-03] MEDS: Atorvastatin Calcium 10 MG Tablet PO (21:02)
[2020-02-03 21:26] LABS: Bedside Glucose 225 mg/dL (70-110)
[2020-02-04 03:00] VITALS: BP 114/55; PULSE 63; PULSE 78; RESP 18; TEMP 36.8; O2SAT 98
[2020-02-04 06:45] VITALS: PULSE 72
[2020-02-04 06:50] LABS: Hematocrit 35.8 % (40-54); Hemoglobin 11.5 g/dL (13.0-16.5); Mean Corp Hgb Conc 32.1 g/dL (32-36); Mean Corpuscular Hgb 29.5 pg (27.0-32.0); Mean Corpuscular Volume 91.8 fL (80-94); Mean Platelet Vol. 11.9 fl (6.2-12.0); Platelet Count 270 K/mm3 (150-450); RBC Distribution Width CV 12.6 % (11.6-14.6); RBC Distribution Width SD 42.3 fl (35.1-43.9); White Blood Count 5.3 K/mm3 (4.4-11.0)
[2020-02-04 07:00] LABS: International Normalized Ratio 2.8; Prothrombin Time (Protime)PT. 29.3 SECONDS (11.7-14.9)
[2020-02-04 07:05] LABS: Anion Gap 8 (5-15); BUN 48 mg/dL (7-18); BUN/Creat Ratio 17.6 RATIO (10-20); Calcium,Total 9.8 mg/dL (8.5-10.1); Chloride 104 mmol/L (98-107); Creatinine, Serum 2.72 mg/dL (0.70-1.30); EST Glomerular Filtration Rate 25 mL/min (>60); Est Glom Filt Rate - Afr Amer 30 mL/min (>60); Estimated Creatinine Clearance 25.27 ml/min; Glucose 129 mg/dL (74-106); Potassium 3.6 mmol/L (3.5-5.1); Sodium Level 143 mmol/L (136-145)
[2020-02-04 07:40] LABS: Bedside Glucose 141 mg/dL (70-110)
[2020-02-04] MEDS: Insulin Lispro 100 UNIT/ML INSULN.PEN 10 UNIT SC ×2 (07:50→11:19)
[2020-02-04] MEDS: Ferrous Sulfate 325 MG Tablet PO (07:50)
--- NOTE | 2020-02-04 07:53 | PN.CARD_ITS ---
Subjectve: Patient seen and evaluated. Doing much better today. Legs feel wrinkled. He had a significant urine output yesterday Objective: Vital Signs Temp Pulse Resp BP Pulse Ox 98.2 F 72 18 114/55 L 98 02/04/20 03:00 02/04/20 06:45 02/04/20 03:00 02/04/20 03:00 02/04/20 03:00 Oxygen Delivery Method Room Air Weight: 228 lb 9.91 oz Body Mass Index (BMI) 36.7 Finger Stick Blood Glucose 78 Intake and Output for Last 24 Hours 02/02/20 02/03/20 02/04/20 23:59 23:59 23:59 Intake Total 215.3 / 215.3 967.96 / 967.96 262.07 / 262.07 Output Total 1800 / 1800 7375 / 7375 1200 / 1200 Balance -1584.7 / -1584.7 -6407.04 / -6407.04 -937.93 / -937.93 General: Awake, Alert, Oriented x 3 HEENT: PERRL, EOMI, Sclera Non Icteric Neck: Supple, Good ROM, No Lymph Node Enlargement Lungs: Clear to auscultation Cardiovascular: Irregular Rhythm, Normal S1, Normal S2, No Murmurs, No Rubs, No Gallops Vascular: No Carotid Bruits, Normal Femoral Pulses, Normal Radial Pulses, Normal Dorsalis Pedal Pulse, Normal Posterior Tibial Pulses Abdomen: Bowel Sounds Present, Soft, Non Tender, No HSM, No Organomegaly Extremities: No Cyanosis, No Clubbing, Trace RLE Edema, Trace LLE Edema Musculoskeletal: No Erythema Lymphatic: No Lymph Node Enlargement Neurological: No Focal Motor or Sensory Deficit Psych/Mental Status: Appropriate 02/04/20 06:07: PT 29.3 H, INR 2.8 02/04/20 06:07: WBC 5.3, RBC 3.90 L, Hgb 11.5 L, Hct 35.8 L, MCV 91.8, MCH 29.5, MCHC 32.1, Plt Count 270, MPV 11.9 02/04/20 06:07: Sodium 143, Potassium 3.6, Chloride 104, Carbon Dioxide 31.0, Anion Gap 8, BUN 48 H, Creatinine 2.72 H, Est GFR (MDRD) Af Amer 30 L, Est GFR (MDRD) Non-Af 25 L, BUN/Creatinine Ratio 17.6, Glucose 129 H, Calcium 9.8 Rhythm: EKG: ECHO: Stress Test: Cardiac Cath: PCI: CT Surgery: Holter monitor: EPS: PPM: CXR: Chest CT Scan: Medical Necessity - Tobacco Use Smoking Status: Never smoker Assessment/Plan 1. Acute on chronic systolic mediated CHF * The patient appears to have acute on chronic systolic mediated CHF. * His echocardiogram demonstrated low normal ejection fraction which was global. * He continues on his beta-dhruv and his diuretic with significant negative diuresis of over 6 L. * Will DC IV Bumex today * Switch over to oral from a.m. especially with increasing creatinine levels. This can be further followed up as an outpatient 2. Indeterminate troponin I levels He does have indeterminate troponin I levels. It Is unclear whether this is related to a type II event secondary to his acute on chronic systolic mediated CHF. However there is still a concern about the possibility of underlying CAD which has not been brought out by his previous noninvasive studies. Thus he may eventually need further evaluation with diagnostic cardiac catheterization.In the interim he will continue medical therapy for the possibility of CAD as deemed appropriate. Will be followed up as an outpatient. 3. Non-ischemic mediated cardiomyopathy There is concern he has had a nonischemic mediated cardiomyopathy. Continue his monitoring. He will continue his noninvasive valuation. He will continue medical therapy. However he may need eventual evaluation of his coronary anato my in the cardiac catheterization laboratory. This may likely be performed as an outpatient. 4. Paroxysmal atrial fibrillation He is in atrial fibrillation at this time. He will continue rate control therapy. He has been on 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 therapy with warfarin/Coumadin. 5. Pulmonary hypertension He has a history of pulmonary hypertension. Hopefully his pulmonary pressures can be reassessed noninvasively with a transthoracic echocardiogram. 6. Hyperlipidemia He will continue risk factor modification medical therapy as deemed appropriate. 7. Hypertension His blood pressure can be followed. We will continue medical therapy. 8. Chronic renal insufficiency He does have some renal dysfunction and will need to be watch his creatinine. Depending on the amount of diuresis when able to achieve further recommendations will be undertaken. Thank you for allowing me to participate in the care of your patient. Please don't hesitate to call if any issues arise.
[2020-02-04 09:00] VITALS: BP 105/59; PULSE 82; RESP 18; TEMP 36.4; O2SAT 96
[2020-02-04] MEDS: Carvedilol 25 MG Tablet PO (09:10)
[2020-02-04] MEDS: Lisinopril 40 MG Tablet PO (09:10)
[2020-02-04] MEDS: Pantoprazole Sodium 20 MG Tablet PO (09:10)
[2020-02-04 10:45] VITALS: PULSE 61
--- NOTE | 2020-02-04 10:57 | PCM.DC ---
- Discharge Diagnoses Current Active Problems: Current Active and Chronic Problems (Last Updated 06/04/19 @ 18:24 by Jahaira Price) CHF (congestive heart failure) (Acute) Elevated troponin (Acute) You will use the following diet at home:: Cardiac Your food should be the consistency of: Regular Your liquids should be the consistency of: Regular/Thin Discharge Activity: Return to Normal Activity Additional Instructions: If you develop hives with lasix, stop taking, and call your primary care physician or heating and ventilation engineer immediately for an alternative medcation to take. You will need a BMP (blood test) in one week. Call your family doctor to arrange this. Allergies/Adverse Reactions: Allergies furosemide [From Lasix] Allergy (Verified 02/02/20 14:03) Hives rofecoxib Allergy (Verified 02/02/20 14:03) Hives Medications to take at Discharge Ascorbic Acid [Vitamin C with Vivian Hips] 500 mg PO BID 01/11/18 Carvedilol [Coreg] 25 mg PO BID 01/11/18 Insulin Glargine [Lantus SoloStar Pen] 25 units SUBCUT BID 01/11/18 Lovastatin [Mevacor] 40 mg PO QHS 01/11/18 Multivitamin [Multiple Vitamins] 1 tab PO DAILY 01/11/18 Quinapril HCl [Accupril] 40 mg PO DAILY 01/11/18 docusate sodium 100 mg capsule 100 mg PO DAILY PRN PRN 05/20/19 ferrous sulfate 325 mg (65 mg iron) tablet 325 mg PO DAILY 05/20/19 omeprazole 20 mg capsule,delayed release 20 mg PO DAILY #90 cap 05/20/19 Fenofibrate 160 mg PO DAILY 02/02/20 Insulin Aspart [Novolog Flexpen] 10 units SUBCUT TIDCM 02/02/20 Warfarin [Coumadin] 4 mg PO SUMOTUTHFRSA 02/02/20 Warfarin [Coumadin] 6 mg PO WE 02/02/20 Furosemide [Lasix] 60 mg PO BIDLX #180 tab 02/04/20 The following prescriptions were given: Furosemide [Lasix] 60 mg PO BIDLX #180 tab Transmission Status: Pending to [id number] Primary Care Physician: Lester Jarvis MD [Primary Care Provider] - Please follow up with your Primary Care Physician in: 1-2 weeks Test Results: Test results from this visit will be discussed in further detail at your follow-up appointment, if applicable. Please Follow Up With: Tommy Harvey MD When: 2 weeks Proposed Discharge Date: 02/04/20
[2020-02-04] MEDS: Insulin Lispro 100 UNIT/ML INSULN.PEN SC (11:19)
[2020-02-04 12:10] LABS: Bedside Glucose 212 mg/dL (70-110)
--- NOTE | 2020-02-04 15:29 | PCM.DC.SUM ---
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 2D Echo: Interpretation Summary Normal LV size. The estimated ejection fraction is 50 %. Unable to assess diastolic dysfunction due to arrhythmia. The left atrium is moderately enlarged. Contrast injection was performed. Consults: Wes - cardiology Operations: None Procedures: 2-D Echocardiogram Summary of Care Provided: Hospital course: The patient is a 70 year old M with pmhx of non ischemic CM, pulmonary HTN, diastolic CHF, HTN, HLD, CVA, NSVT, and CKDIII who presented the emergency room with increased shortness of breath and lower extremity edema. This been worsening for about a week and the patient also notices a 10 to 15 pound weight gain. He was felt to have acute exacerbation of congestive heart failure and admitted to the PCU on telemetry, given IV Lasix. He had an indeterminate troponin and an elevated BNP. Cardiology was consulted. He was transitioned to a Bumex drip. An echocardiogram was obtained which demonstrated an EF of 50%, mild global hypokinesis of the left ventricle, 1+ MVI, 1-2+ TVI, PASP of 35 mmHg. The patient diuresed well with resolution of his symptoms on Bumex drip. He was transitioned to furosemide, 60 twice daily. He had large volume diuresis during the course of his stay with his weight improving from 248 pounds to 228 pounds. Patient's renal function began to increase and at that point Lasix was changed to oral. He will need a BMP to assess his renal function in 1 week. He will need to follow-up with his PCP in 1 to 2 weeks. He will need to follow-up with cardiology in 2 weeks. He has had some hives with Lasix in the past and was advised that if he develops a reaction to oral Lasix at home that he should stop taking it and contact his PCP for an alternative diuretic regimen. Patient was discharged home in stable condition. This patient was seen by Marcial Holley PA-C under the supervision of Doctor Sergei. [] - Physical Exam Vitals/I&O's: Vital Signs Temp Pulse Resp BP Pulse Ox 97.6 F L 61 18 105/59 L 96 02/04/20 09:00 02/04/20 10:45 02/04/20 09:00 02/04/20 09:00 02/04/20 09:00 Oxygen Delivery Method Room Air Weight: 228 lb 9.91 oz Body Mass Index (BMI) 36.7 Finger Stick Blood Glucose 78 Intake and Output for Last 24 Hours 02/02/20 02/03/20 02/04/20 23:59 23:59 23:59 Intake Total 215.3 / 215.3 967.96 / 967.96 266.04 / 266.04 Output Total 1800 / 1800 7375 / 7375 1200 / 1200 Balance -1584.7 / -1584.7 -6407.04 / -6407.04 -933.96 / -933.96 General: Alert, Oriented x3, Cooperative HEENT: Atraumatic, PERRLA, EOMI, Normocephalic Neck: Supple, No JVD, Negative Carotid Bruits Lungs: Clear to auscultation, Normal air movement Cardiovascular: Regular rate, No murmurs Abdomen: Bowel Sounds Present, Soft, Non Tender Extremities: No edema, Capillary Refill Less than 3 Seconds Skin: No rashes, No breakdown Musculoskeletal: No Tenderness to Palpation of Joints or Extremities Neurological: Cranial nerves II-XII grossly intact Psych/Mental Status: Normal Affect, Appropriate, Alert and oriented to time, place, person, mood and affect Laboratory Results 02/03/20 17:01: POC Glucose 89 02/03/20 21:01: POC Glucose 225 H 02/04/20 06:07: PT 29.3 H, INR 2.8 02/04/20 06:07: WBC 5.3, RBC 3.90 L, Hgb 11.5 L, Hct 35.8 L, MCV 91.8, MCH 29.5, MCHC 32.1, RDW Std Deviation 42.3, RDW Coeff of Whitney 12.6, Plt Count 270, MPV 11.9 02/04/20 06:07: Sodium 143, Potassium 3.6, Chloride 104, Carbon Dioxide 31.0, Anion Gap 8, BUN 48 H, Creatinine 2.72 H, Estim Creat Clear Calc 25.27, Est GFR (MDRD) Af Amer 30 L, Est GFR (MDRD) Non-Af 25 L, BUN/Creatinine Ratio 17.6, Glucose 129 H, Calcium 9.8 02/04/20 07:30: POC Glucose 141 H 02/04/20 11:18: POC Glucose 212 H Discharge Diet: Low fat/ Low Cholesterol, 2000 mg Sodium Diet Discharge Activity: Return to Normal Activity Home Medications: Medications to take at Discharge Ascorbic Acid [Vitamin C with Vivian Hips] 500 mg PO BID 01/11/18 Carvedilol [Coreg] 25 mg PO BID 01/11/18 Insulin Glargine [Lantus SoloStar Pen] 25 units SUBCUT BID 01/11/18 Lovastatin [Mevacor] 40 mg PO QHS 01/11/18 Multivitamin [Multiple Vitamins] 1 tab PO DAILY 01/11/18 Quinapril HCl [Accupril] 40 mg PO DAILY 01/11/18 docusate sodium 100 mg capsule 100 mg PO DAILY PRN PRN 05/20/19 ferrous sulfate 325 mg (65 mg iron) tablet 325 mg PO DAILY 05/20/19 omeprazole 20 mg capsule,delayed release 20 mg PO DAILY #90 cap 05/20/19 Fenofibrate 160 mg PO DAILY 02/02/20 Insulin Aspart [Novolog Flexpen] 10 units SUBCUT TIDCM 02/02/20 Warfarin [Coumadin] 4 mg PO SUMOTUTHFRSA 02/02/20 Warfarin [Coumadin] 6 mg PO WE 02/02/20 Furosemide [Lasix] 60 mg PO BIDLX #180 tab 02/04/20 Following Prescrptions Were Given to Patient: Furosemide [Lasix] 60 mg PO BIDLX #180 tab Transmission Status: Received by [facility] #[id number] Primary Care Physician: Lester Jarvis MD [Primary Care Provider] - Please follow up with your Primary Care Physician in: 1-2 weeks Please Follow Up With: Tommy Harvey MD When: 2 weeks Please Follow Up With: Lester Jarvis MD Disposition: Home Minutes spent on discharge:: 35 Patient Condition:: Stable Medical Necessity - Tobacco Use Smoking Status: Never smoker Meaningful Use Info Meaningful Use Diagnoses (Choose all that apply): CHF - CHF JAVY/ARB ordered at discharge?: Yes Documented LVEF (%): 50 <Vargas Mai - Last Filed: 02/04/20 16:26> Discharge Date and Diagnosis - Secondary Discharge Diagnosis Chronic Problems: Chronic Problems (Last Updated 06/04/19 @ 18:24 by Jahaira Price) Non-ischemic cardiomyopathy (Chronic) longterm current use of 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 (Chronic) Incomplete left bundle branch block (Chronic) Secondary pulmonary arterial hypertension (Chronic) Paroxysmal atrial fibrillation (Chronic) Essential (primary) hypertension (Chronic) Hyperlipidemia (Chronic) CVA (cerebral vascular accident) (Chronic 12/2017) CKD (chronic kidney disease), stage III (Chronic) Hospital Course and Treatment Summary of Care Provided: The patient is a 70 year old M [] - Physical Exam Vitals/I&O's: Vital Signs Temp Pulse Resp BP Pulse Ox 97.6 F L 61 18 105/59 L 96 02/04/20 09:00 02/04/20 10:45 02/04/20 09:00 02/04/20 09:00 02/04/20 09:00 Oxygen Delivery Method Room Air Weight: 228 lb 9.91 oz Body Mass Index (BMI) 36.7 Finger Stick Blood Glucose 78 Intake and Output for Last 24 Hours 02/02/20 02/03/20 02/04/20 23:59 23:59 23:59 Intake Total 215.3 / 215.3 967.96 / 967.96 266.04 / 266.04 Output Total 1800 / 1800 7375 / 7375 1200 / 1200 Balance -1584.7 / -1584.7 -6407.04 / -6407.04 -933.96 / -933.96 Laboratory Results 02/03/20 17:01: POC Glucose 89 02/03/20 21:01: POC Glucose 225 H 02/04/20 06:07: PT 29.3 H, INR 2.8 02/04/20 06:07: WBC 5.3, RBC 3.90 L, Hgb 11.5 L, Hct 35.8 L, MCV 91.8, MCH 29.5, MCHC 32.1, RDW Std Deviation 42.3, RDW Coeff of Whitney 12.6, Plt Count 270, MPV 11.9 02/04/20 06:07: Sodium 143, Potassium 3.6, Chloride 104, Carbon Dioxide 31.0, Anion Gap 8, BUN 48 H, Creatinine 2.72 H, Estim Creat Clear Calc 25.27, Est GFR (MDRD) Af Amer 30 L, Est GFR (MDRD) Non-Af 25 L, BUN/Creatinine Ratio 17.6, Glucose 129 H, Calcium 9.8 02/04/20 07:30: POC Glucose 141 H 02/04/20 11:18: POC Glucose 212 H Addendum: Dr. Mai I personally examined the patient and reviewed the chart. I agree with the above. 70-year-old male with a history of A. fib and systolic CHF with an EF of 40% May 2019, presents with shortness of breath and increased leg swelling. He states that he is also gained about 10 to 15 pounds over the last week or so. He was started on torsemide because he is allergic to Lasix, and cardiology was consulted and recommended a Bumex drip. He had significant diuresis with about a 20 pound weight loss and a little over 8 L removed. He is breathing much better and his swelling has significantly decreased. Of note his troponin on admission was elevated 0.153, he had an echo for EF of 50%, diastolic function cannot be evaluated A. fib, however I think this is likely demand secondary to his acute exacerbation systolic CHF. His creatinine did bump a little on the day of discharge and he was transitioned to p.o. Lasix per cardiology's recommendation. If he does develop a reaction to the Lasix he should call his PCP or his log turner to adjust his diuretics. Also had an extensive discussion with him about daily monitoring of his weight and taking doses when necessary if he gains a lot of weight. He can resume Coumadin on discharge as well as his INR is 2.8 this morning. Inpatient E&M: [id number] [facility]
--- NOTE | 2020-02-05 14:58 | CASEMGMT ---
ANA PAULA OCHOA Discharge Follow-Up Phone Call. Lace: 10 Strata: 3 Discharge Date: 02/04/20 Adm Dx: CHF Exac Call to pt to inquire about how he has been doing since being discharged from the hospital. 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 He states the pharmacist is attempting to contact the prescriber for the Lasix but is unable to reach him. Call provided to pt for pharmacist to contact this RN DON. Call received from Eileen [employer] [facility]. She states Laxix e-scribed order states 60 mg BIDLX and she is inquiring about what the LX means. ANA PAULA OCHOA contacted AYAAN Duenas, who e-scribed the Lasix. He states he is not sure what the LX is on the order and that he just wants the standard Lasix for pt. Eileen @ [facility] made aware and states they will dispense it to patient now. Offered to give Eileen Holley's contact number if she needs to speak with him, but she states communication w/this RN DON is sufficient. Call placed back to pt after phone call w/pharmacist finished to complete d/c follow up phone call. Pt/ state they are aware of the virtual visit appt w/Dr Jarvis that has been scheduled and inquired about how to complete this visit. states she does already have Zoom on her phone. RN DON advised for them to call Dr Jarvis's office prior to the appt time to have them give instructions on how to complete the virtual appt. They voice understanding. They are also aware of the appt with Gallito KUO that has been scheduled for 03/02. Re-inforced with pt/ that if pt begins to have any itching, swelling, hives, SOB, wheezing or any other symptoms while taking the Lasix to contact his doctor immediately or go to ER if needed. They voice understanding. They deny having any other concerns/needs/questions. ANA PAULA OCHOA thanked pt for choosing [facility]. Colleen JOHNSON RN, CM
== END 2020-02-04 12:51 | disposition home or self-care (01) | DRG 291 ==
LOC: ED 15:57 → PCU 16:29
PROVIDERS: Nurse Practitioner Family; Admitting Provider Family Medicine; Emergency Provider Emergency Medicine; PCP Family Medicine; Visit Provider Family Medicine
DX: I13.0 Hypertensive heart and chronic kidney disease with heart failure and stage 1 through stage 4 chronic kidney disease, or unspecified chronic kidney disease (principal); I50.23 Acute on chronic systolic (congestive) heart failure; E11.22 Type 2 diabetes mellitus with diabetic chronic kidney disease; N18.3 Chronic kidney disease, stage 3 (moderate); I48.0 Paroxysmal atrial fibrillation; R79.1 Abnormal coagulation profile; I42.8 Other cardiomyopathies; I27.21 Secondary pulmonary arterial hypertension; D64.9 Anemia, unspecified; E78.5 Hyperlipidemia, unspecified; M19.90 Unspecified osteoarthritis, unspecified site; K21.9 Gastro-esophageal reflux disease without esophagitis; E66.9 Obesity, unspecified; Z68.36 Body mass index [BMI] 36.0-36.9, adult; Z79.01 Long term (current) use of 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s; Z79.4 Long term (current) use of insulin; Z79.899 Other long term (current) drug therapy; Z88.8 Allergy status to other drugs, medicaments and biological substances; Z86.73 Personal history of transient ischemic attack (TIA), and cerebral infarction without residual deficits; Z96.659 Presence of unspecified artificial knee joint
CPT/HCPCS: 36415; 71045; 80048; 82962; 83735; 83880; 84443; 84484; 85025; 85027; 85610; 93005; 93306; 99285; Q9957; A4216; C8929

== ENCOUNTER 2020-03-03 07:48 | Outpatient (RCR) | payer MEDICARE, SELFPAY ==
[2019-09-21 11:04] VITALS: BMI 34.8
[2020-02-02 17:33] VITALS: BMI 36.7
[2020-02-29 14:31] LABS: Prothrombin Time Fingerstick 54.7 SEC (11.9-14.4)
[2020-02-29 16:25] LABS: Prothrombin Time (Protime)PT. 46.4 SECONDS (11.7-14.9)
[2020-03-03 08:00] LABS: Prothrombin Time Fingerstick 38.4 SEC (11.9-14.4)
== END 2020-03-03 18:00 | disposition home or self-care (01) ==
LOC: MTLAB 07:48
PROVIDERS: Family Provider Family Medicine; PCP Family Medicine; Referring Provider Internal Medicine Cardiovascular Disease; Visit Provider Internal Medicine Cardiovascular Disease
DX: I48.0 Paroxysmal atrial fibrillation (principal); Z79.01 Long term (current) use of 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s
CPT/HCPCS: 36415; 36416; 85610

== ENCOUNTER → 2020-03-16 06:23 | Outpatient (CLI) | payer MEDICARE, SELFPAY ==
[2020-03-02 14:50] VITALS: BMI 33.2
--- NOTE | 2020-03-16 12:30 | STRESSREP ---
Stress Test Report Pharmacologic myocardial perfusion stress test. 70-year-old man with a history of hypertension conduction system disease and abnormal troponin. Stress protocol: Resting EKG demonstrates atrial fibrillation with a rate of 64 bpm and occasional premature ventricular complexes. Resting blood pressure is 170/64 mmHg. 0.4 mg of regadenoson was infused per usual protocol followed by rapid intravenous saline flush injection. Continuous EKG monitoring was performed. The maximum heart rate was 96 bpm which was 64% of maximum predicted heart rate the maximum workload was 1 metabolic equivalent. At rest there were no ST or T wave changes noted to suggest abnormal flow reserve at peak infusion nonspecific ST-T wave changes were noted. The resting blood pressure was 170/64 mmHg with a final blood pressure of 142/78 mmHg. No clinical angina was noted. Myocardial perfusion protocol. 14.7 mCi of technetium 99m sestamibi was injected at rest. 0.4 mg of regadenoson was infused per usual protocol. At peak infusion 45.60 mCi of technetium 99m sestamibi was injected stress images were obtained stress and rest images were reconstructed and compared in the short axis vertical long and horizontal long axis. Gated images were also obtained. Perfusion SPECT analysis: Review of the stress images demonstrate normal uptake of tracer noted in all areas of the myocardium the resting images similar demonstrate normal uptake of tracer noted in all areas of the myocardium. No obvious areas of reversibility were noted to suggest ischemia. There was thinning of the apex noted on the stress and resting images to a similar extent. Gated SPECT analysis: The gated ejection fraction is 57%. Conclusion: Normal pharmacologic myocardial perfusion stress test. Preserved ejection fraction.
== END ==
LOC: CVS 06:24
PROVIDERS: PCP Family Medicine; Referring Provider Nurse Practitioner Family; Visit Provider Nurse Practitioner Family
DX: R07.89 Other chest pain (principal); I25.2 Old myocardial infarction; I42.8 Other cardiomyopathies; I48.0 Paroxysmal atrial fibrillation; R06.00 Dyspnea, unspecified
CPT/HCPCS: 78452; 93017; A9500; A4216; J2785

== ENCOUNTER 2020-04-04 09:00 | Outpatient (RCR) | payer MEDICARE, SELFPAY ==
[2020-03-02 14:50] VITALS: BMI 33.2
[2020-03-14 09:26] LABS: Prothrombin Time Fingerstick 40.1 SEC (11.9-14.4)
[2020-03-21 14:11] LABS: Prothrombin Time Fingerstick 34.2 SEC (11.9-14.4)
[2020-04-04 09:46] LABS: Prothrombin Time Fingerstick 36.1 SEC (11.9-14.4)
[2020-04-04 12:39] LABS: Hematocrit 35.7 % (40-54); Hemoglobin 11.5 g/dL (13.0-16.5); Mean Corp Hgb Conc 32.2 g/dL (32-36); Mean Corpuscular Hgb 29.5 pg (27.0-32.0); Mean Corpuscular Volume 91.5 fL (80-94); Platelet Count 196 K/mm3 (150-450); RBC Distribution Width CV 12.6 % (11.6-14.6); RBC Distribution Width SD 41.5 fl (35.1-43.9); White Blood Count 5.6 K/mm3 (4.4-11.0)
[2020-04-04 12:53] LABS: Vitamin D,25 Hydroxy 47.5 ng/mL
[2020-04-04 12:57] LABS: Albumin, Serum 3.8 g/dL (3.2-5.0); BUN 45 mg/dL (7-18); Calcium,Total 9.4 mg/dL (8.5-10.1); Chloride 103 mmol/L (98-107); Creatinine, Serum 2.25 mg/dL (0.70-1.30); EST Glomerular Filtration Rate 31 mL/min (>60); Est Glom Filt Rate - Afr Amer 37 mL/min (>60); Glucose 298 mg/dL (74-106); Magnesium 2.4 mg/dL (1.6-2.6); Phosphorus 2.9 mg/dL (2.5-4.9); Potassium 3.9 mmol/L (3.5-5.1); Sodium Level 137 mmol/L (136-145)
[2020-04-04 13:01] LABS: PTHIN 31.9 pg/mL (18.4-80.1)
[2020-04-04 13:07] LABS: Protein, Urine (Random) 23.5 mg/dL (<11.9); Protein:Creat Ratio 299 mg/g CRE (0-200)
== END 2020-04-04 18:00 | disposition home or self-care (01) ==
LOC: MTLAB 09:00
PROVIDERS: Family Provider Family Medicine; PCP Family Medicine; Referring Provider Internal Medicine Cardiovascular Disease; Visit Provider Internal Medicine Cardiovascular Disease
DX: I48.0 Paroxysmal atrial fibrillation (principal); Z79.01 Long term (current) use of 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s; N18.3 Chronic kidney disease, stage 3 (moderate); E83.42 Hypomagnesemia; D50.9 Iron deficiency anemia, unspecified
CPT/HCPCS: 36415; 36416; 80069; 82306; 82570; 83735; 83970; 84156; 85027; 85610

== ENCOUNTER 2020-05-03 10:07 | Outpatient (RCR) | payer MEDICARE, SELFPAY ==
[2020-03-02 14:50] VITALS: BMI 33.2
[2020-04-18 08:51] LABS: Prothrombin Time Fingerstick 20.7 SEC (11.9-14.4)
[2020-05-03 13:16] LABS: Prothrombin Time Fingerstick 22.7 SEC (11.9-14.4)
== END 2020-05-09 18:00 | disposition home or self-care (01) ==
LOC: MTLAB 10:07
PROVIDERS: Family Provider Family Medicine; PCP Family Medicine; Referring Provider Internal Medicine Cardiovascular Disease; Visit Provider Internal Medicine Cardiovascular Disease
DX: I48.0 Paroxysmal atrial fibrillation (principal); Z79.01 Long term (current) use of 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s
CPT/HCPCS: 36416; 85610

== ENCOUNTER 2020-05-23 09:24 | Outpatient (RCR) | payer MEDICARE, SELFPAY ==
[2020-04-19 15:16] VITALS: BMI 34.2
[2020-05-23 10:10] LABS: Prothrombin Time Fingerstick 26.9 SEC (11.9-14.4)
== END 2020-05-23 18:00 | disposition home or self-care (01) ==
LOC: MTLAB 09:24
PROVIDERS: Family Provider Family Medicine; PCP Family Medicine; Referring Provider Internal Medicine Cardiovascular Disease; Visit Provider Internal Medicine Cardiovascular Disease
DX: I48.19 Other persistent atrial fibrillation (principal); Z79.01 Long term (current) use of 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s
CPT/HCPCS: 36416; 85610

== ENCOUNTER 2020-06-14 09:40 | Outpatient (RCR) | payer MEDICARE, SELFPAY ==
[2020-04-19 15:16] VITALS: BMI 34.2
[2020-06-14 09:56] LABS: Prothrombin Time Fingerstick 23.8 SEC (11.9-14.4)
== END 2020-06-14 18:00 | disposition home or self-care (01) ==
LOC: MTLAB 09:40
PROVIDERS: Family Provider Family Medicine; PCP Family Medicine; Referring Provider Internal Medicine Cardiovascular Disease; Visit Provider Internal Medicine Cardiovascular Disease
DX: I48.19 Other persistent atrial fibrillation (principal); Z79.01 Long term (current) use of 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s
CPT/HCPCS: 36416; 85610

== ENCOUNTER 2020-07-11 08:49 | Outpatient (RCR) | payer MEDICARE, SELFPAY ==
[2020-04-19 15:16] VITALS: BMI 34.2
[2020-07-11 09:00] LABS: Prothrombin Time Fingerstick 24.9 SEC (11.9-14.4)
== END 2020-07-11 18:00 | disposition home or self-care (01) ==
LOC: MTLAB 08:49
PROVIDERS: Family Provider Family Medicine; PCP Family Medicine; Referring Provider Internal Medicine Cardiovascular Disease; Visit Provider Internal Medicine Cardiovascular Disease
DX: I48.19 Other persistent atrial fibrillation (principal); Z79.01 Long term (current) use of 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s
CPT/HCPCS: 36416; 85610

== ENCOUNTER → 2020-09-28 10:10 | Outpatient (CLI) | payer MEDICARE, SELFPAY ==
[2020-04-19 15:16] VITALS: BMI 34.2
[2020-09-28 12:45] LABS: Anion Gap 8 (5-15); BUN 42 mg/dL (7-18); BUN/Creat Ratio 17.4 RATIO (10-20); Calcium,Total 9.1 mg/dL (8.5-10.1); Chloride 104 mmol/L (98-107); Creatinine, Serum 2.41 mg/dL (0.70-1.30); EST Glomerular Filtration Rate 28 mL/min (>60); Est Glom Filt Rate - Afr Amer 34 mL/min (>60); Glucose 235 mg/dL (74-106); Sodium Level 138 mmol/L (136-145)
[2020-09-28 12:49] LABS: Protein, Urine (Random) 8.2 mg/dL (<11.9); Protein:Creat Ratio 238 mg/g CRE (0-200)
== END ==
PROVIDERS: PCP Family Medicine; Referring Provider Internal Medicine Nephrology; Visit Provider Internal Medicine Nephrology
DX: N18.30 Chronic kidney disease, stage 3 unspecified (principal)
CPT/HCPCS: 36415; 80048; 82570; 84156

== ENCOUNTER → 2021-03-23 08:33 | Outpatient (CLI) | payer MEDICARE, SELFPAY ==
[2021-02-20 08:27] VITALS: BMI 34.5
[2021-03-23 09:50] LABS: Hematocrit 33.3 % (40-54); Hemoglobin 10.7 g/dL (13.0-16.5); Mean Corp Hgb Conc 32.1 g/dL (32-36); Mean Corpuscular Hgb 29.4 pg (27.0-32.0); Mean Corpuscular Volume 91.5 fL (80-94); Mean Platelet Vol. 12.1 fl (6.2-12.0); Platelet Count 249 K/mm3 (150-450); RBC Distribution Width CV 12.3 % (11.6-14.6); RBC Distribution Width SD 41.1 fl (35.1-43.9); Red Blood Count 3.64 M/mm3 (4.6-6.2); White Blood Count 6.2 K/mm3 (4.4-11.0)
[2021-03-23 10:16] LABS: Vitamin D,25 Hydroxy 35.9 ng/mL
[2021-03-23 10:22] LABS: PTHIN 66.5 pg/mL (18.4-80.1)
[2021-03-23 10:30] LABS: BUN 42 mg/dL (7-18); BUN/Creat Ratio 15.8 RATIO (10-20); Calcium,Total 9.7 mg/dL (8.5-10.1); Chloride 104 mmol/L (98-107); Creatinine, Serum 2.66 mg/dL (0.70-1.30); EST Glomerular Filtration Rate 25 mL/min (>60); Est Glom Filt Rate - Afr Amer 31 mL/min (>60); Glucose 116 mg/dL (74-106); Phosphorus 2.7 mg/dL (2.5-4.9); Potassium 3.7 mmol/L (3.5-5.1); Sodium Level 140 mmol/L (136-145)
[2021-03-23 11:17] LABS: Protein, Urine (Random) 12.8 mg/dL (<11.9); Protein:Creat Ratio 198 mg/g CRE (0-200)
== END ==
PROVIDERS: PCP Family Medicine; Referring Provider Internal Medicine Nephrology; Visit Provider Internal Medicine Nephrology
DX: N18.4 Chronic kidney disease, stage 4 (severe) (principal); D50.9 Iron deficiency anemia, unspecified
CPT/HCPCS: 36415; 80069; 82306; 82570; 83970; 84156; 85027

== ENCOUNTER → 2021-08-01 15:49 | Outpatient (CLI) | payer MEDICARE, SELFPAY ==
[2021-08-01 17:13] LABS: Cholesterol 125 mg/dL (200); High Density Lipoprotein 26 mg/dL; Triglycerides 133 mg/dL; Very Low Density Lipoprotein 27 mg/dL (5-40)
[2021-08-01 17:25] LABS: Hemoglobin A1c < 6.0 % (3.8-5.6)
== END ==
PROVIDERS: PCP Family Medicine; Visit Provider Family Medicine
DX: E11.22 Type 2 diabetes mellitus with diabetic chronic kidney disease (principal); I12.9 Hypertensive chronic kidney disease with stage 1 through stage 4 chronic kidney disease, or unspecified chronic kidney disease; N18.30 Chronic kidney disease, stage 3 unspecified; Z79.4 Long term (current) use of insulin; E11.29 Type 2 diabetes mellitus with other diabetic kidney complication; R80.9 Proteinuria, unspecified; E11.3219 Type 2 diabetes mellitus with mild nonproliferative diabetic retinopathy with macular edema, unspecified eye; E78.2 Mixed hyperlipidemia
CPT/HCPCS: 80061; 83036

== ENCOUNTER 2021-10-03 14:20 | Outpatient (CLI) | payer MEDICARE, SELFPAY ==
[2021-10-03 17:53] LABS: Anion Gap 8 (5-15); BUN 44 mg/dL (7-18); BUN/Creat Ratio 17.3 RATIO (10-20); Calcium,Total 9.3 mg/dL (8.5-10.1); Chloride 103 mmol/L (98-107); Creatinine, Serum 2.55 mg/dL (0.70-1.30); EST Glomerular Filtration Rate 27 mL/min (>60); Est Glom Filt Rate - Afr Amer 32 mL/min (>60); Glucose 113 mg/dL (74-106); Potassium 4.1 mmol/L (3.5-5.1); Sodium Level 139 mmol/L (136-145)
[2021-10-03 17:58] LABS: Protein, Urine (Random) 15.1 mg/dL (<11.9); Protein:Creat Ratio 267 mg/g CRE (0-200)
== END 2021-10-03 23:59 | disposition short-term general hospital (02) ==
LOC: MTLAB 14:21
PROVIDERS: PCP Family Medicine; Referring Provider Internal Medicine Nephrology; Visit Provider Internal Medicine Nephrology
DX: N18.4 Chronic kidney disease, stage 4 (severe) (principal)
CPT/HCPCS: 36415; 80048; 82570; 84156

== ENCOUNTER 2021-12-05 13:57 | Emergency (ER) | payer MEDICARE, SELFPAY ==
--- NOTE | 2021-12-05 14:01 | EKG12_ITS ---
Test Reason : STROKE Blood Pressure : / mmHG Vent. Rate : 065 BPM Atrial Rate : 065 BPM P-R Int : 250 ms QRS Dur : 126 ms QT Int : 452 ms P-R-T Axes : 089 -40 073 degrees QTc Int : 470 ms Poor data quality, interpretation may be adversely affected Sinus rhythm with sinus arrhythmia with 1st degree A-V block Left axis deviation 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 Abnormal ECG Confirmed by STARLA BESS, SUNDEEP ([id number]), medical transcription editor JHONATAN CRANDALL ([id number]) on 12/06/2021 1:39:18 PM Referred By: RAMIREZ Confirmed By:SUNDEEP CHA MD
--- NOTE | 2021-12-05 14:01 | CT_ITS ---
STUDY: CT HEAD STROKE PROTOCOL W/O CONTRAST INJECTION REASON FOR EXAM: Male, 71 years old. Neuro deficit, acute, stroke suspected RADIATION DOSAGE (If Supplied By Facility): CTDIvol = ( ) mGy, DLP = ( ) mGycm TECHNIQUE: Transaxial CT imaging of the brain was performed without administration of intravenous contrast material. Individualized dose optimization techniques were used for this CT. COMPARISON: 01/11/2018 FINDINGS: Normal soft tissue structures. Normal calvarium. There is mild cerebral atrophy with widening of the extra-axial spaces and ventricular dilatation. There are areas of decreased attenuation within the white matter tracts of the supratentorial brain, consistent with microvascular disease changes. Old infarction of the right frontal lobe is stable. Normal basal ganglia and thalami. Normal brainstem. Normal cerebellum. There is no intracranial hemorrhage. There is slight loss of subramanian-white differentiation involving the right temporal (anterior margin posterior) lobe (image 24 series 2) although the adjacent insular cortex appears to be intact. Punctate hyperdensity involving right middle cerebral artery on the same image, asymmetric to the contralateral side and new since 2018. Normal visualized paranasal sinuses. ASPECT score: 8 CT/STROKE Brain/Head without Cont IMPRESSION: 1. Possible punctate right MCA sign. Early ischemic changes of the right temporal lobe. N.B. : The above Results were Read Back by Lito Cabrera MD (Brooks) to Naren Bedolla and understanding confirmed on 12/05/2021 14:12:55 (ET). Electronically Signed: Lito Cabrera MD (Brooks) at 14:17 EDT ,
--- NOTE | 2021-12-05 14:05 | ED.VIS.STROK ---
HPI History of Present Illness Chief Complaint: Neuro S/Sx Detail of Chief Complaint: Possible stroke Informant: patient and EMS Narrative Narrative: Patient presents to the emergency department via EMS from home. Patient states that he fell in the bathroom approximately 9 AM and his found him around 1 PM. Patient denies significant headache. He is on Eliquis for history of atrial fibrillation. Patient denies vision changes. Patient did take his Eliquis last night. He denies recent illness. Prior similar symptoms: No PFSH PFSH Medical History Acute on chronic combined systolic (congestive) and diastolic (congestive) heart failure (02/02/20) Anemia Chronic combined systolic and diastolic CHF (congestive heart failure) Chronic low back pain CKD (chronic kidney disease), stage III CVA (cerebral vascular accident) (12/2017) Essential (primary) hypertension GERD (gastroesophageal reflux disease) History of non-ST elevation myocardial infarction (NSTEMI) (02/02/20) Hyperlipidemia 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 (LBBB) Longstanding persistent atrial fibrillation Non-ischemic cardiomyopathy NSVT (nonsustained ventricular tachycardia) Obesity Osteoarthritis Paroxysmal atrial fibrillation Secondary pulmonary arterial hypertension TIA (transient ischemic attack) (12/2017) Home Medications ascorbic acid (vitamin C) 500 mg PO BID 01/11/18 [History Last Taken 02/02/20] lovastatin 40 mg PO QHS 01/11/18 [History Last Taken 02/01/20] multivitamin 1 tab PO DAILY 01/11/18 [History Last Taken 02/02/20] quinapril 40 mg PO DAILY 01/11/18 [History Last Taken 02/02/20] docusate sodium 100 mg capsule 100 mg PO DAILY PRN PRN 05/20/19 [History Last Taken 01/28/20] ferrous sulfate 325 mg (65 mg iron) tablet 325 mg PO DAILY 05/20/19 [History Last Taken 02/02/20] omeprazole 20 mg capsule,delayed release 20 mg PO DAILY #90 cap 05/20/19 [History Last Taken 02/02/20] fenofibrate 160 mg PO DAILY 02/02/20 [History Last Taken 02/02/20] insulin aspart U-100 10 units SUBCUT TIDCM 02/02/20 [History Last Taken 02/02/20] carvedilol 25 mg tablet 25 mg PO BID #180 tab 04/19/20 [Rx Last Taken Unknown] insulin glargine 100 unit/mL (3 mL) subcutaneous pen 30 unit SUBCUT BID ml 10/19/20 [History Last Taken Unknown] apixaban 2.5 mg tablet 2.5 mg PO BID #180 tab 11/27/21 [Rx Last Taken Unknown] furosemide 40 mg tablet 40 mg PO .COMPLEX #360 tab 11/27/21 [Rx Last Taken Unknown] Allergy/AdvReac Type Severity Reaction Status Date / Time rofecoxib Allergy Hives Verified 12/05/21 14:06 Family History Mother Heart disease Sister Heart disease Myocardial infarction CVA (cerebral vascular accident) Diabetes Brother CVA (cerebral vascular accident) Surgical History History of back surgery History of knee replacement, total Social History Smoking Status: Never smoker alcohol intake: current alcohol intake frequency: holidays/special occasions only Alcohol type: beer substance use type: does not use caffeine: Yes Type: coffee Number of servings: 2 ROS ROS ED ROS Narrative Fall Constitutional Constitutional ED: Reports systems reviewed and no addt'l complaints, except as documented; Denies body ache(s), change in weight or chills Eyes Eyes: Denies acute decrease in peripheral vision, change in vision, double vision or loss of vision ENT ENT ED: Reports none; Denies ear pain, lip swelling, loss taste/smell, neck pain, otalgia or sore throat Cardiovascular Cardiovascular: Reports none; Denies abdominal pain, chest pain with activity, leg edema, lightheadedness, palpitations, rapid heart rate or syncope Respiratory/Chest Respiratory/Chest: Reports none; Denies change in mental status, dry cough, dyspnea, hemoptysis, shortness of breath at rest or shortness of breath with exertion Gastrointestinal Gastrointestinal: Reports none; Denies abdominal pain, change in stool character, diarrhea, hematemesis, hematochezia, melena, rectal bleeding or vomiting Genitourinary Genitourinary ED: Reports none; Denies abdominal discomfort, anuria, dysuria, genital pain or polyuria Musculoskeletal Musculoskeletal: Reports none; Denies arthralgias, back pain, difficulty walking, extremity pain, muscle weakness or myalgias Integumentary Reports none; Denies abscess or rash Neurologic Neurologic: Reports none, weakness and other Details: Left arm and left leg weakness ; Denies abnormal gait, confusion, focal weakness, frequent falls, headache(s), loss of vision, numbness, paresthesias, radicular pain or vertigo Psychiatric Psychiatric: Reports systems reviewed and no addt'l complaints, except as documented and none; Denies behavioral changes, confusion, difficulty concentrating, hallucinations, suicidal ideation, tactile hallucinations or visual hallucinations Endocrine Endocrinology: Denies none, cold intolerance, excessive sweating, fatigue or heat intolerance Hematologic/Lymphatic Hematologic/Lymphatic: Reports none; Denies anemia, easy bleeding or easy bruising Allergic/Immunologic Allergic/Immunologic ED: Denies as per HPI, none, lip swelling, mouth swelling, throat swelling, tongue swelling or hives EXAM Physical Exam Const Vital Signs: 12/05/21 14:07 12/05/21 14:11 12/05/21 14:12 Temperature 98.1 F Temperature Source Temporal Pulse Rate 58 L 63 Respiratory Rate 18 21 H Blood Pressure 171/79 H Blood Pressure Mean 109 Pulse Ox 21 96 Oxygen Delivery Method Room Air Nasal Cannula Nasal Cannula Oxygen Flow Rate (L/min) 2 2 12/05/21 14:42 Temperature Temperature Source Pulse Rate 68 Respiratory Rate 19 H Blood Pressure 161/61 H Blood Pressure Mean 94 Pulse Ox 97 Oxygen Delivery Method Nasal Cannula Oxygen Flow Rate (L/min) 2 Positive well nourished and well developed General Appearance ED: well developed and NAD HEENT Reports TM's clear and moist mucous membranes normocephalic and atraumatic; Negative for trauma or tenderness Tympanic Membrane ED: Yes TM's clear Eyes PERRL and EOMs intact bilaterally General Eye ED: Negative for pale conjunctiva or scleral icterus Neck no lymphadenopathy, supple and no JVD General: Negative for tenderness Chest Wall inspection of chest normal and palpation of chest normal Chest: Negative for tenderness Resp normal respiratory effort and clear to auscultation bilaterally Effort and Inspection: Negative for respiratory distress or pain with movement Auscultation: Negative for rhonchi, wheezes or diminished lung sounds Cardio regular rate, regular rhythm, S1 normal heart sound, S2 normal heart sound and no murmurs Peripheral Pulses: pulses 2+ throughout GI normal to inspection, nondistended, normoactive bowel sounds, soft to palpation, non-tender, non-distended and no masses Back/Spine no CVA tenderness and no thoracic nor lumbar tenderness Extremity normal to inspection General Extremety ED: Negative for edema General Extremity: Negative for edema Neuro oriented x3, CN's II-XII intact bilaterally, no sensory deficits noted and gait normal Sensorium / Orientation: awake, alert, oriented to person, oriented to place and oriented to time Motor Exam: strength 5/5 throughout and strength abnormal Psych mental status grossly normal Skin no rashes or lesions noted and no wounds STROKE Vital Signs/Narrative: Vital Signs Temp Pulse Resp BP Pulse Ox 12/05/21 14:42 68 19 H 161/61 H 97 12/05/21 14:12 63 21 H 171/79 H 96 12/05/21 14:07 98.1 F 58 L 18 21 MDM MDM MDM Narrative Medical decision making narrative: IV line had been established. Patient was sent directly to CT scan via EMS cot. Radiologist did not feel there was any hemorrhage but did appear to have a dense right MCA with possible early stroke of the right temporal lobe. Patient is not a TPA candidate given that he is on Eliquis and he has had symptoms for over 5 hours. We will obtain CTAs of the head and neck as long as his kidney function will tolerate. After patient was evaluated by stroke neurologist recommended stat CTA of the head and neck. The [facility] neurologist did call back and wanted the patient transferred to their facility for possible skip lesion in the MC 1 territory. Patient will be flown out via [facility]. Lab Data Labs: Laboratory Results - last 24 hr 12/05/21 12/05/21 12/05/21 14:13 14:13 14:13 WBC 11.0 RBC 3.55 L Hgb 10.5 L Hct 32.3 L MCV 91.0 MCH 29.6 MCHC 32.5 RDW Std Deviation 41.3 RDW Coeff of Whitney 12.4 Plt Count 262 MPV 10.9 Immature Gran % (Auto) 0.400 Neut % (Auto) 87.9 H Lymph % (Auto) 4.4 L Mcculloch % (Auto) 6.4 Eos % (Auto) 0.6 Baso % (Auto) 0.3 Absolute Neuts (auto) 9.7 H Absolute Lymphs (auto) 0.49 L Nucleated RBC % 0 PT 14.5 INR 1.2 APTT 28.5 Sodium 141 Potassium 4.1 Chloride 107 Carbon Dioxide 27.0 Anion Gap 7 BUN 53 H Creatinine 2.69 H Estim Creat Clear Calc 25.19 Est GFR (MDRD) Af Amer 30 L Est GFR (MDRD) Non-Af 25 L BUN/Creatinine Ratio 19.7 Glucose 213 H Calcium 9.7 Troponin I High Sens 348 H* Radiography Diagnostic Testing: Clinical Impression(s) from Imaging Studies Brain CT 12/05/21 14:01 IMPRESSION: 1. Possible punctate right MCA sign. Early ischemic changes of the right temporal lobe. N.B. : The above Results were Read Back by Lito Cabrera MD (Brooks) to Naren Bedolla and understanding confirmed on 12/05/2021 14:12:55 (ET). Electronically Signed: Lito Cabrera MD (Brooks) at 14:17 EDT , ADDENDUM: 12/05/21 1424 IMPRESSION: 1. Possible punctate right MCA sign. Early ischemic changes of the right temporal lobe. N.B. : The above Results were Read Back by Lito Cabrera MD (Brooks) to Naren Bedolla and understanding confirmed on 12/05/2021 14:12:55 (ET). Electronically Signed: Lito Cabrera MD (Brooks) at 14:17 EDT , Head/Neck CTA 12/05/21 14:21 IMPRESSION: 1. Right MCA (M2) intra-arterial thrombus. No intracranial aneurysm. 2. Mild carotid atherosclerosis without hemodynamically significant stenosis. No carotid artery dissection. N.B. : The above Results were Read Back by Lito Cabrera MD (Brooks) to Dr. Irwin and understanding confirmed on 12/05/2021 14:45:42 (ET). Electronically Signed: Lito Cabrera MD (Brooks) at 14:50 EDT , Stroke Documentation Questions Stroke Team Activated: Yes Reviewed Inclusion/Exclusion criteria: Yes No contraindications for IV Alteplase (t-PA) administration.: Yes Critical Care Time Critical care time (excluding procedures): Including time spent:, Discussing w/Patient &/or Family/Assembler Dc [employer] [place], Discussing w/Consultants, Arranging Admission or Transfer, Performing Direct Patient Care at Bedside and - (30 minutes) Discharge Plan Triage Chief Complaint: Neuro S/Sx ED Provider: Naren Bedolla Dx/Rx/DC Orders Clinical Impression: Stroke, Coagulopathy, Hypertension, Fall Prescriptions: No Action docusate sodium 100 mg capsule 100 mg PO DAILY PRN PRN (Reason: Constipation) RF: 0 ferrous sulfate 325 mg (65 mg iron) tablet 325 mg PO DAILY RF: 0 omeprazole 20 mg capsule,delayed release(DR/EC) 20 mg PO DAILY Qty: 90 RF: 0 carvedilol 25 mg tablet 25 mg PO BID Qty: 180 RF: 3 quinapril 40 MG tablet 40 mg PO DAILY RF: 0 multivitamin 1 EACH tablet 1 tab PO DAILY RF: 0 lovastatin 40 MG tablet 40 mg PO QHS RF: 0 ascorbic acid (vitamin C) 500 MG tablet 500 mg PO BID RF: 0 insulin glargine 100 unit/mL (3 mL) insulin pen 30 unit subcut BID RF: 0 insulin aspart U-100 100 UNITS/ML insulin pen 10 units subcut TIDCM RF: 0 fenofibrate 160 MG tablet 160 mg PO DAILY RF: 0 furosemide 40 mg tablet 40 mg PO .COMPLEX Qty: 360 RF: 3 Eliquis 2.5 mg tablet 2.5 mg PO BID Qty: 180 RF: 4 Primary Care Provider: Lester Jarvis Referrals: Lester Jarvis MD [Primary Care Provider] - Disposition Disposition: Transfer to Another Type [facility]
[2021-12-05 14:07] VITALS: PULSE 58; RESP 18; TEMP 36.7; O2SAT 21; BMI 38.3
[2021-12-05 14:10] VITALS: BMI 38.3
--- NOTE | 2021-12-05 14:10 | CM.ED ---
Social Work Responding to stroke alert. Patient spouse present, Serge Ray providing support. Will continue to follow as needed. Alejandra Webster NURSING SERVICE DIRECTOR, [facility]
[2021-12-05 14:12] VITALS: BP 171/79; PULSE 58; PULSE 63; RESP 19; RESP 21; O2SAT 96; O2SAT 98
--- NOTE | 2021-12-05 14:21 | CT_ITS ---
EXAM: CT ANGIOGRAPHY HEAD AND NECK WITH INTRAVENOUS CONTRAST CLINICAL INDICATION: cva TECHNIQUE: [place]/head and neck CT angiography protocol performed with intravenous contrast. This CT exam was performed using one or more of the following dose reduction techniques: automated exposure control, adjustment of the mA and/or kV according to patient size, and/or use of iterative reconstruction technique. This report was created using [employer] report generation technology. MIP reconstructed images were created and reviewed. CONTRAST: IV 100mL [id number]-[id number] COMPARISON: CT head earlier today. FINDINGS: HEAD: RIGHT ANTERIOR CEREBRAL ARTERY: Unremarkable. No significant stenosis at the visualized segments. Anterior communicating artery is present. No aneurysm. RIGHT MIDDLE CEREBRAL ARTERY: Intra-arterial filling defect in the anterior segment of the right MCA is best seen on image 435 series 2. RIGHT POSTERIOR CEREBRAL ARTERY: Unremarkable. No occlusion or significant stenosis. No aneurysm. RIGHT INTRACRANIAL INTERNAL CAROTID ARTERY: Unremarkable. No significant stenosis. No dissection or occlusion. RIGHT INTRACRANIAL VERTEBRAL ARTERY: Mild atherosclerosis with mild narrowing of the bilateral intracranial vertebral arteries. LEFT ANTERIOR CEREBRAL ARTERY: Unremarkable. No significant stenosis at the visualized segments. No aneurysm. LEFT MIDDLE CEREBRAL ARTERY: Unremarkable. No significant stenosis at the visualized segments. No aneurysm. LEFT POSTERIOR CEREBRAL ARTERY: Unremarkable. No occlusion or significant stenosis. No aneurysm. LEFT INTRACRANIAL INTERNAL CAROTID ARTERY: Unremarkable. No significant stenosis. No dissection or occlusion. LEFT INTRACRANIAL VERTEBRAL ARTERY: See findings above and below. BASILAR ARTERY: Unremarkable. No significant stenosis. No aneurysm. GREAT VESSELS OF AORTIC ARCH: Unremarkable. Normal anatomy, patent. OTHER VASCULATURE: Mild atherosclerosis and narrowing of the bilateral vertebral arteries. No vascular malformation. NECK: RIGHT COMMON CAROTID ARTERY: Unremarkable. No significant stenosis. No dissection or occlusion. RIGHT EXTRACRANIAL INTERNAL CAROTID ARTERY: Mild calcific atherosclerosis of the right carotid bulb (10% narrowing). RIGHT EXTERNAL CAROTID ARTERY: Unremarkable. No occlusion. RIGHT EXTRACRANIAL VERTEBRAL ARTERY: See above. LEFT COMMON CAROTID ARTERY: Unremarkable. No significant stenosis. No dissection or occlusion. LEFT EXTRACRANIAL INTERNAL CAROTID ARTERY: Trace atherosclerosis of the left carotid bulb (10% narrowing). LEFT EXTERNAL CAROTID ARTERY: Unremarkable. No occlusion. LEFT EXTRACRANIAL VERTEBRAL ARTERY: See above. LUNG APICES: Unremarkable as visualized. HEAD and NECK: BONES/JOINTS: Degenerative changes of the cervical spine. No discrete lytic or blastic abnormalities. SOFT TISSUES: Unremarkable. CAROTID STENOSIS REFERENCE USING NASCET CRITERIA: % ICA stenosis = (1 - narrowest ICA diameter/diameter of distal cervical ICA) x 100. Mild - <50% stenosis. Moderate - 50-69% stenosis. Severe - 70-94% stenosis. Near occlusion - 95-99% stenosis. Occluded - 100% stenosis. CT/CTA Head AND Neck W/ Contrast IMPRESSION: 1. Right MCA (M2) intra-arterial thrombus. No intracranial aneurysm. 2. Mild carotid atherosclerosis without hemodynamically significant stenosis. No carotid artery dissection. N.B. : The above Results were Read Back by Lito Cabrera MD (Brooks) to Dr. Irwin and understanding confirmed on 12/05/2021 14:45:42 (ET). Electronically Signed: Lito Cabrera MD (Brooks) at 14:50 EDT ,
[2021-12-05 14:23] LABS: Absolute Lymphocyte Count 0.49 X10^3/uL (0.83-4.51); Absolute Neutrophil Count 9.7 X10^3/uL (2.0-7.7); Basophil# 0.03 X10^3/uL; Basophil% 0.3 % (0-1); Eosinophil# 0.07 X10^3/uL; Eosinophils% 0.6 % (0-5); Hematocrit 32.3 % (40-54); Hemoglobin 10.5 g/dL (13.0-16.5); Lymphocyte # 0.49 X10^3/ul (0.83-4.51); Lymphocyte % 4.4 % (19-41); Mean Corp Hgb Conc 32.5 g/dL (32-36); Mean Corpuscular Hgb 29.6 pg (27.0-32.0); Mean Platelet Vol. 10.9 fl (6.2-12.0); Monocyte# 0.71 X10^3/uL; Monocyte% 6.4 % (0-10); NRBC Flagged by Analyzer 0 % (0-5); Neutrophil # 9.68 X10^3/uL (2.7-7.7); Neutrophil % 87.9 % (47-70); POSITIVE DIFFERENTIAL YES; Platelet Count 262 K/mm3 (150-450); RBC Distribution Width CV 12.4 % (11.6-14.6); RBC Distribution Width SD 41.3 fl (35.1-43.9); Red Blood Count 3.55 M/mm3 (4.6-6.2)
[2021-12-05 14:26] LABS: Differential Indicated SCAN CRITERIA MET
[2021-12-05 14:32] LABS: International Normalized Ratio 1.2; Partial Thromboplast Time 28.5 Seconds (24.1-36.2); Prothrombin Time (Protime)PT. 14.5 SECONDS (11.7-14.9)
[2021-12-05 14:42] VITALS: BP 161/61; PULSE 68; RESP 19; O2SAT 97
--- NOTE | 2021-12-05 14:44 | RAD_ITS ---
STUDY: X-RAY CHEST REASON FOR EXAM: Male, 71 years old. Neuro deficit, acute, stroke suspected TECHNIQUE: AP COMPARISON: 02/02/2020 FINDINGS: EKG leads project over the chest. Mild interstitial thickening but no airspace consolidation. There is no demonstrated pleural abnormality. There is mild cardiac enlargement. Normal mediastinum and daniel. There is prominence of the pulmonary hilar arteries and peripheral pulmonary arteries, consistent with congestive heart failure (CHF). Normal visualized aortic arch and descending thoracic aorta. Neurostimulator leads project over the thoracic spine. Normal visualized ribs, clavicles, and shoulders. There is no demonstrated abnormality of the visualized soft tissue structures of the upper abdomen. RAD/Chest 1 View IMPRESSION: Stable. Electronically Signed: Lito Cabrera MD (Brooks) at 15:01 EDT ,
[2021-12-05] MEDS: 0.9% Normal Saline 1,000 ML 100 ML IV (14:47)
[2021-12-05 14:49] LABS: Anion Gap 7 (5-15); BUN 53 mg/dL (7-18); BUN/Creat Ratio 19.7 RATIO (10-20); Calcium,Total 9.7 mg/dL (8.5-10.1); Chloride 107 mmol/L (98-107); Creatinine, Serum 2.69 mg/dL (0.70-1.30); EST Glomerular Filtration Rate 25 mL/min (>60); Est Glom Filt Rate - Afr Amer 30 mL/min (>60); Estimated Creatinine Clearance 25.19 ml/min; Glucose 213 mg/dL (74-106); Potassium 4.1 mmol/L (3.5-5.1); Sodium Level 141 mmol/L (136-145); Troponin-I HS 348 pg/mL (3.0-78.0)
[2021-12-05 15:01] VITALS: BP 136/61; PULSE 59; RESP 15; O2SAT 98
[2021-12-05 15:10] VITALS: BP 154/68; PULSE 5; RESP 18; O2SAT 97
--- NOTE | 2021-12-05 15:12 | CM.ED ---
Social Work Patient to be life flighted. This social work supervisor to patient room to provide support. Patient spouse present along with multiple family members. This social work supervisor able to answer questions and provided support. PLAN: Life flight to [facility]. Alejandra CACERES, AUBREE
--- NOTE | 2021-12-05 15:24 | CHAPLAIN ---
Type of Pastoral Visit ___ Initial Visit ___ Follow-up Visit ___ On-call Visit ___ General Patient Visit ___ Spiritual Assessment ___ Family Conference ___ Bereavement _x__ Rapid Response ___ Code Blue ___ Other (describe below) Pastoral Care Referral From ___ Patient ___ Family ___ Nurse ___ Physician ___ Fish Icer ___ Social Work Assistant _x__ Other (describe below) Sacrament/Intervention _x__ Active listening ___ Anointing ___ Buddhist ___ Bereavement ___ Communion ___ Pat exploration ___ ___ Life review _x__ Prayer ___ Reconciliation ___ Sacrament of Sick _x__ Supportive presence ___ Wedding ___ Other (describe below) Pastoral Comments came to ED for the stroke alert and patient had just arrived and was being evaluated by medical team; pt went to CT for scan; spouse arrived and was escorted by this director integrated to pt assigned room and introduced to RN; sat with spouse until pt came to room; offered time to talk and presence for spouse; later checked back again with spouse and offered support and prayer as more tests were being conducted; son of pt then came to ED and was offered care by this director integrated
== END 2021-12-05 15:25 | disposition other institution (70) ==
PROVIDERS: Emergency Provider Emergency Medicine; PCP Family Medicine; Visit Provider Emergency Medicine
DX: I63.239 Cerebral infarction due to unspecified occlusion or stenosis of unspecified carotid artery (principal); I42.8 Other cardiomyopathies; I13.0 Hypertensive heart and chronic kidney disease with heart failure and stage 1 through stage 4 chronic kidney disease, or unspecified chronic kidney disease; I50.42 Chronic combined systolic (congestive) and diastolic (congestive) heart failure; I27.21 Secondary pulmonary arterial hypertension; I48.0 Paroxysmal atrial fibrillation; D68.9 Coagulation defect, unspecified; Z79.4 Long term (current) use of insulin; N18.30 Chronic kidney disease, stage 3 unspecified; E78.5 Hyperlipidemia, unspecified; G89.29 Other chronic pain; I25.2 Old myocardial infarction; K21.9 Gastro-esophageal reflux disease without esophagitis; M19.90 Unspecified osteoarthritis, unspecified site; E66.9 Obesity, unspecified; Z79.899 Other long term (current) drug therapy; Z79.01 Long term (current) use of 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s; W19.XXXA Unspecified fall, initial encounter; Y93.9 Activity, unspecified; Y92.002 Bathroom of unspecified non-institutional (private) residence as the place of occurrence of the external cause; Z68.38 Body mass index [BMI] 38.0-38.9, adult
CPT/HCPCS: 70450; 70496; 70498; 71045; 80048; 84484; 85025; 85610; 85730; 93005; 96360; 99285; J7030; Q9967; A4216

== ENCOUNTER 2021-12-14 21:15 | Inpatient (IN) | payer MEDICARE, SELFPAY ==
[2021-12-14 22:00] VITALS: BP 122/66; PULSE 64; RESP 16; TEMP 36.1; O2SAT 98
[2021-12-14 22:08] VITALS: BMI 35.1
[2021-12-15 00:16] LABS: Bedside Glucose 196 mg/dL (74-106)
[2021-12-15] MEDS: Insulin Lispro 100 UNIT/ML INSULN.PEN SC ×5 (00:16→22:11)
[2021-12-15 05:48] LABS: Hematocrit 28.8 % (40-54); Hemoglobin 9.8 g/dL (13.0-16.5); Mean Corpuscular Hgb 30.2 pg (27.0-32.0); Mean Corpuscular Volume 88.6 fL (80-94); Mean Platelet Vol. 11.3 fl (6.2-12.0); Platelet Count 254 K/mm3 (150-450); RBC Distribution Width CV 11.9 % (11.6-14.6); RBC Distribution Width SD 38.2 fl (35.1-43.9); Red Blood Count 3.25 M/mm3 (4.6-6.2); White Blood Count 8.9 K/mm3 (4.4-11.0)
[2021-12-15 06:23] LABS: ALB/GLOB Ratio 0.7 RATIO (0.9-2.4); AST(SGOT) 46 U/L (15-37); Alanine Aminotransfer ALT/SGPT 46 U/L (16-61); Albumin, Serum 2.9 g/dL (3.2-5.0); Alkaline Phosphatase 45 U/L (45-117); Anion Gap 7 (5-15); BUN 40 mg/dL (7-18); BUN/Creat Ratio 19.2 RATIO (10-20); Chloride 105 mmol/L (98-107); Creatinine, Serum 2.08 mg/dL (0.70-1.30); EST Glomerular Filtration Rate 34 mL/min (>60); Est Glom Filt Rate - Afr Amer 41 mL/min (>60); Estimated Creatinine Clearance 32.57 ml/min; Globulin 4.1 g/dL (2.2-4.2); Glucose 173 mg/dL (74-106); Magnesium 2.1 mg/dL (1.6-2.6); Phosphorus 3.3 mg/dL (2.5-4.9); Sodium Level 136 mmol/L (136-145)
[2021-12-15 06:45] LABS: Bedside Glucose 170 mg/dL (74-106)
[2021-12-15 07:00] VITALS: O2SAT 92
[2021-12-15] MEDS: Carvedilol 25 MG Tablet PO ×2 (07:35→22:03)
[2021-12-15] MEDS: Pantoprazole Sodium 20 MG Tablet PO (07:35)
[2021-12-15 07:36] VITALS: BP 131/62; PULSE 60; RESP 16; TEMP 36.6; O2SAT 96
[2021-12-15] MEDS: Insulin Lispro 100 UNIT/ML INSULN.PEN 16 UNIT SC ×2 (07:36→17:23)
[2021-12-15] MEDS: Fenofibrate 145 MG Tablet PO (07:36)
[2021-12-15] MEDS: Furosemide 40 MG Tablet PO (07:36)
[2021-12-15] MEDS: Senna/Docusate Sodium 1 Tablet 2 TABLET PO ×2 (07:36→22:03)
[2021-12-15] MEDS: Ferrous Sulfate 325 MG Tablet PO (07:36)
[2021-12-15] MEDS: amLODIPine 10 MG Tablet PO (07:36)
[2021-12-15] MEDS: Aspirin 81 MG TAB.CHEW PO (07:36)
[2021-12-15] MEDS: Insulin Glargine-YFGN 100 UNIT/ML Pen 35 UNIT SC ×2 (07:38→22:10)
[2021-12-15] MEDS: Arthritis Pain Compound 60 CLICK TUBE TOPICAL ×2 (09:04→22:11)
--- NOTE | 2021-12-15 10:13 | HP.PCM_ITS ---
HPI - General General Date of Admission: 12/14/21 HPI Narrative VIVI SAINI, is a 71 YO M with a PMH of chronic AF, DM II, CHF (systolic and diastolic), HTN, placement of a spinal stimulator for chronic back pain, GERD, HLD, LBBB, CRF stage IIIb, hx of CVA (December 2017) and TIA's, obesity, HX of NSTEMI (02/02/20), non-ischemic CM, OA and secondary pulmonary HTN who presented to the ED at [facility] on 12/05/21 after falling in his BR and not being able to get up. His did not find him for 4 hours. He is on Chronic anticoagulation for AF. A NC CTB did not show hemorrhage but, the radiologist felt there was a sense R MCA with possible early stroke in the R temporal lobe. A CTA of the head and neck was ordered and telestroke from [facility] was consulted. The neurologist felt there was a possible skip lesion in the R MC 1 territory. Pt was flown to [facility] to be evaluated for a possible thrombectomy. The NIH at admission to [facility] was 14 and had been 15 at [facility] ED. Sx included Left side weakness and facial droop. CTP showed ischemic penumbra in the R frontal, Temporal and and Parietal lobes. Neurosurgery was consulted and he underwent a thrombectomy and obtained TICI 2c revascularization. He was evaluated by PT/OT/ST and had a FEES while at [facility]. Inpt rehab was recommended. He was transferred to the inpt acute rehab unit at [facility] on 12/14/21 for 3 hours of therapy daily to restore function/independence at or near his prior level of function. Significant Lab at [facility] included a HGBA1C of 8, LDL of 74, CREAT of 2.31(this is within his baseline), HDL of 27 and HGB of 9.9. The CREAT increased to 3.22 1 day after thrombectomy. Transthoracic echocardiogram showed a 45% EF. FEES revealed dysphagia and his was placed on a minced and moist diet with thin liquids. Apixaban dose was increased to 5 mg BID from 2.5 mg BID. He was referred to Neurology (Dr. Ferrera) in [place] for follow up following DC from rehab. Nuclear stress test in March 2021 at [facility] showed an ejection fraction of 57% with no obvious areas of reversibility that would suggest ischemia. Echocardiogram done in January 2020 showed an ejection fraction of 50% with mild global hypokinesis of the left ventricle. The left atrium was moderately enlarged and the right atrium was normal. PA systolic was estimated at 35 mmHg and there was 1-2+ tricuspid valve insufficiency. 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 Tommy Harvey. High sensitivity troponin on 11/28/2021 was elevated at 348. All lab drawn today was personally reviewed. Hemoglobin is 9.8 and stable. White blood cell count and platelets are within normal limits. The MCV and MCH are normal and so is the RDW. Creatinine today is down to 2.08 which is within his baseline. Phosphorus and magnesium are within normal limits. Vitamin D within the past year is within normal limits. Calcium is within normal limits. [facility] Medical History (Updated 12/16/21 @ 16:[address] Tash Gaitan, ) Acute on chronic combined systolic (congestive) and diastolic (congestive) heart failure (02/02/20) Acute right MCA stroke Anemia Chronic combined systolic and diastolic CHF (congestive heart failure) Chronic low back pain CKD (chronic kidney disease), stage III CVA (cerebral vascular accident) (12/2017) Diabetes mellitus type 1.5, managed as type 1 Essential (primary) hypertension GERD (gastroesophageal reflux disease) History of iron deficiency History of non-ST elevation myocardial infarction (NSTEMI) (02/02/20) Hyperlipidemia 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 (LBBB) Longstanding persistent atrial fibrillation Non-ischemic cardiomyopathy NSVT (nonsustained ventricular tachycardia) Obesity Osteoarthritis Paroxysmal atrial fibrillation Secondary pulmonary arterial hypertension TIA (transient ischemic attack) (12/2017) Home Medications ferrous sulfate 325 mg (65 mg iron) tablet 325 mg PO DAILY 05/20/19 [History Last Taken 02/02/20] omeprazole 20 mg capsule,delayed release 20 mg PO DAILY #90 cap 05/20/19 [History Last Taken 02/02/20] fenofibrate 160 mg PO DAILY 02/02/20 [History Last Taken 02/02/20] insulin aspart U-100 16 units SUBCUT BIDCM 02/02/20 [History Last Taken 02/02/20] carvedilol 25 mg tablet 25 mg PO BID #180 tab 04/19/20 [Rx Last Taken Unknown] insulin glargine 100 unit/mL (3 mL) subcutaneous pen 35 unit SUBCUT BID ml 10/19/20 [History Last Taken 12/14/21 07:00] amlodipine 10 mg PO DAILY 12/14/21 [History Last Taken 12/14/21 10:00] apixaban [Eliquis] 5 mg PO BID 12/14/21 [History Last Taken Unknown] aspirin 81 mg PO DAILY 12/14/21 [History Last Taken 12/14/21 10:00] atorvastatin 80 mg PO QHS 12/14/21 [History Last Taken 12/13/21 22:00] diclofenac sodium 1 ea TOPICAL TID PRN 12/14/21 [History Last Taken Unknown] furosemide 40 mg PO DAILY 12/14/21 [History Last Taken 12/14/21 10:00] Allergy/AdvReac Type Severity Reaction Status Date / Time rofecoxib Allergy Hives Verified 12/05/21 14:06 Family History Mother Heart disease Sister Heart disease Myocardial infarction CVA (cerebral vascular accident) Diabetes Brother CVA (cerebral vascular accident) Surgical History History of back surgery History of knee replacement, total Social History Smoking Status: Never smoker alcohol intake: current alcohol intake frequency: holidays/special occasions only Alcohol type: beer substance use type: does not use caffeine: Yes Type: coffee Number of servings: 2 ROS Constitutional Constitutional: Reports fatigue and weakness; Denies anorexia, change in weight, chills, fever(s) or night sweats Eyes Eyes: Reports change in vision and other Details: He had pain behind the R eye at presentation of CVA but, this has since resolved ; Denies blurry vision, eye pain, itchy eyes or loss of vision ENT HEENT: Denies abnormal hearing, dysphagia, headache(s), hearing loss, nasal congestion or sore throat Cardiovascular Cardiovascular: Reports edema and other Details: Tells me that his R knee usually swells but, it is not swollen now ; Denies chest pain, dyspnea on exertion, lightheadedness, orthopnea, palpitations, paroxysmal nocturnal dyspnea or syncope Respiratory/Chest Respiratory/Chest: Denies cough, dyspnea, shortness of breath at rest, shortness of breath with exertion or wheezing Gastrointestinal Gastrointestinal: Denies abdominal pain, constipation, diarrhea, dyspepsia, hematemesis, hematochezia, nausea or vomiting Genitourinary Genitourinary: Reports dysuria, nocturia, urinary hesitancy, urinary incontinence and other Details: He had a Wiggins catheter at the previous hospital. He tells me that the Wiggins was placed for urine retention. He admits to nocturia, slow stream and has to bear down to urinate at times. ; Denies hematuria, urinary frequency or urinary urgency Musculoskeletal Musculoskeletal: Denies back pain, joint pain, joint swelling or neck pain Integumentary Integumentary: Denies jaundice, pruritus, rash or wounds Neurologic Neurologic: Reports focal weakness; Denies confusion, disequilibrium, dizziness, headache(s), paresthesias, seizures or tremor(s) Psychiatric Psychiatric: Denies anxiety, depression, homicidal ideation or suicidal ideation Endocrine Endocrinology: Denies change in body appearance, polydipsia or polyuria Hematologic/Lymphatic Hematologic/Lymphatic: Denies easy bleeding, easy bruising or lymphadenopathy Allergic/Immunologic Allergic/Immunologic: Denies rhinitis, eczemia or asthma Vital Signs Vital Signs Vital Signs: 12/14/21 22:00 12/14/21 23:00 12/15/21 07:00 Temperature 97 F L Temperature Source Temporal Pulse Rate 64 Respiratory Rate 16 Respiratory Effort Normal Non-Labored Respiratory Depth Normal Respiratory Pattern Normal Blood Pressure 122/66 H Blood Pressure Mean 84 Blood Pressure Source Monitor Blood Pressure Position Semi-Fowlers Blood Pressure Location Left Arm Pulse Ox 98 92 Oxygen Delivery Method Room Air Room Air Room Air 12/15/21 07:36 Temperature 97.9 F Temperature Source Oral Pulse Rate 60 Respiratory Rate 16 Respiratory Effort Respiratory Depth Respiratory Pattern Blood Pressure 131/62 H Blood Pressure Mean 85 Blood Pressure Source Monitor Blood Pressure Position Semi-Fowlers Blood Pressure Location Left Arm Pulse Ox 96 Oxygen Delivery Method Room Air Weight Weight: 238 lb Body Mass Index (BMI) 35.1 Indicators for Scoring Admitted with or Primary Diagnosis of CVA/Stroke: Yes Hx of CVA/Stroke: Yes Modified [place] Score MRS Score at time of Evaluation: 5-Severe disability NIHSS NIHSS 1a. Level of Consciousness: Alert; keenly responsive 1b. LOC Questions: Answers BOTH questions correctly. 1c. LOC Commands: Performs both tasks correctly. 2. Best Gaze: Normal 3. Visual: Complete hemianopia (Left homonymous hemianopia) 4. Facial Palsy: Minor paralysis (flattened nasolabial fold, asymmetry on smiling) 5a. Left Arm: Drift; arm drifts downward but doesn?t hit the bed 5b. Right Arm: No drift; arm holds 90 (or 45) degrees for full 10 seconds 6a. Left Leg: Drift; leg falls by the end of 5-seconds, but does not hit bed 6b. Right Leg: No drift; leg holds 30-degree position for full 5 seconds 7. Limb Ataxia: Absent 8. Sensory: Normal; no sensory loss 9. Best Language: Yper-wn-wcxqdtak aphasia; 10. Dysarthria: Dcdw-kk-diezwiwn dysarthria; 11. Extinction and Inattention: Profound jhon-inattention or extinction to more than one modality; Total: 9 Physical Exam Const no apparent distress and well nourished Constitutional Narrative: He is slow to answer questions and he is having a hard time following directions. I am having to repeat myself multiple times to get him to keep his eyes shut and to get him to tell me which side of the body I am touching. General Appearance: cooperative and well developed HEENT normocephalic HEENT Narrative: Mucous membranes are dry Eyes PERRL and EOMs intact bilaterally Neck nuchal rigidity, no lymphadenopathy and supple Neck Narrative: I did not appreciate any bruits however, he could not hold his breath making the exam difficult. General: trachea midline Lymph Lymphatic: no lymphadenopathy noted Resp normal respiratory effort, normal air movement and clear to auscultation bilaterally Resp Narrative: I could only listen anteriorly and laterally......he was unable to lean forward and I will listen posteriorly when I have someone to help me lean him forward. Cardio regular rate, regular rhythm, S1 normal heart sound, S2 normal heart sound, no murmurs, no gallops and peripheral pulses 2+ throughout GI normal to inspection, nondistended, normoactive bowel sounds, soft to palpation and non-tender GI Narrative: No guarding with palpation Extremity normal capillary refill, no clubbing, cyanosis or edema and no calf tenderness Skin General Skin Exam: no breakdown Rashes: no rashes Neuro Neuro Narrative: speech is halting. When I have him reading he is very slow and frequently is only able to read the R half of the sentence. He is confusing R and left when I ask him where I am touching him. He was able to give me decent hx and he was oriented to person, place, month, year and knows why he is here. He told me that he lives in a trailer with his Magaly and there are 5 steps with 1 HR. He has a step up shower? He has 2 sons. See the NIHSS. Psych cooperative, denies homicidal ideation and denies suicidal ideation Psych Narrative: Not making good eye contact but, I am sitting on his left side and this may be the reason. He has significant Left side neglect. Appearance: appropriate Mood & Affect: flat affect Results Lab / Micro Data Result Diagrams: 12/15/21 05:37 12/15/21 05:37 Labs: Laboratory Results - last 24 hr 12/14/21 23:24: POC Glucose 196 H 12/15/21 05:37: WBC 8.9, RBC 3.25 L, Hgb 9.8 L, Hct 28.8 L, MCV 88.6, MCH 30.2, MCHC 34.0, RDW Std Deviation 38.2, RDW Coeff of Whitney 11.9, Plt Count 254, MPV 11.3 12/15/21 05:37: Sodium 136, Potassium 4.0, Chloride 105, Carbon Dioxide 24.0, Anion Gap 7, BUN 40 H, Creatinine 2.08 H, Estim Creat Clear Calc 32.57, Est GFR (MDRD) Af Amer 41 L, Est GFR (MDRD) Non-Af 34 L, BUN/Creatinine Ratio 19.2, Glucose 173 H, Calcium 9.0, Phosphorus 3.3, Magnesium 2.1, Total Bilirubin 0.50, AST 46 H, ALT 46, Alkaline Phosphatase 45, Total Protein 7.0, Albumin 2.9 L, Globulin 4.1, Albumin/Globulin Ratio 0.7 L 12/15/21 06:40: POC Glucose 170 H Assessment & Plan Assessment/Plan (1) Physical debility: (2) Cerebral artery occlusion with cerebral infarction: (3) Acute right MCA stroke: (4) Aphasia: (5) Left homonymous hemianopsia due to recent cerebral infarction: (6) Jhon-neglect of left side: (7) Acute left hemiparesis: (8) Cognitive dysfunction: (9) Longstanding persistent atrial fibrillation: (10) emt intermediate current use of 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: (11) Chronic combined systolic and diastolic CHF (congestive heart failure): (12) History of non-ST elevation myocardial infarction (NSTEMI): (13) Non-ischemic cardiomyopathy: (14) 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 (LBBB): (15) Essential (primary) hypertension: (16) Hyperlipidemia: QUALIFIERS: Hyperlipidemia type: unspecified Qualified Code(s): E78.5 - Hyperlipidemia, unspecified (17) CKD (chronic kidney disease), stage III: (18) Diabetes mellitus type 1.5, managed as type 1: (19) Urinary incontinence: PLAN: PLAN PT for gait stability OT for ADL's ST for evaluation Analgesics as needed Bowel protocol Fall precautions Assess for Anxiety/Depression GI prophylaxis with pantoprazole 20 mg p.o. daily DVT prophylaxis -he is taking apixaban 5 mg p.o. twice daily Follow up with neurology, Dr. Harvey, [facility] and Dr. Jarvis following DC from [facility] Rehab AM lab including CMP, CBC, Mag and Phos were reviewed All documentation from [facility] was reviewed as well as the EMR from admissions to [facility] in the past. BS's AC&HS Continue the insulin regimen from the preceding hospital Eliquis dose was increased from 2.5 mg BID to 5 mg BID while at [facility] Check a hemoccult stool and also check ferritin, TIB, iron and %iron saturation avoid sedating medications Charges/Coding Visit Charges Inpatient E&M: 17081 Init Hosp L3
--- NOTE | 2021-12-15 11:05 | NURSING ---
Referral faxed to Dr Christina. Original gave to pt
[2021-12-15 11:11] LABS: Bedside Glucose 260 mg/dL (74-106)
[2021-12-15 12:29] LABS: Troponin-I HS 230 pg/mL (3.0-78.0)
--- NOTE | 2021-12-15 12:35 | NURSING ---
Troponin level called to Dr Gaitan. NNO Results are down form previous lab work.
[2021-12-15] MEDS: Ascorbic Acid 500 MG Tablet 1000 MG PO (14:58)
[2021-12-15 15:26] VITALS: BMI 35.1
[2021-12-15 15:56] LABS: Bedside Glucose 317 mg/dL (74-106)
--- NOTE | 2021-12-15 16:30 | CASEMGMT ---
Social Work Met with patient for initial assessment. Introduced self and role. Pt wishes to have be primary contact and remain involved in updates/DC plans. Pt has two sons, Bryon and Lloyd, whom work inspector timers. 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 The goal is for pt to return home. Pt reports this may be his 6th stroke. Explained and provided stroke support group brochure. Pt agreeable to be added to mailing list. Completed PHQ-9. No indication of depression. Explained [employer] insurance and continued stay is not guaranteed with each review. Will Team Mondays. SW to continue to follow for support and DC planning. Imani Traore, SNATH HANDLE ASSEMBLER BUTTONHOLE MAKER
[2021-12-15 21:38] VITALS: BP 141/60; PULSE 65; RESP 18; TEMP 36.6; O2SAT 95
[2021-12-15 21:57] VITALS: BP 140/65; PULSE 62; RESP 18; TEMP 36.6; O2SAT 97
[2021-12-15] MEDS: Atorvastatin Calcium 80 MG Tablet PO (22:03)
[2021-12-15 22:21] LABS: Bedside Glucose 305 mg/dL (74-106)
[2021-12-16 04:02] VITALS: BMI 35.1
[2021-12-16 07:01] LABS: Bedside Glucose 167 mg/dL (74-106)
[2021-12-16 07:49] VITALS: BP 135/67; PULSE 62; RESP 18; TEMP 36.5; O2SAT 97
[2021-12-16] MEDS: Insulin Lispro 100 UNIT/ML INSULN.PEN SC ×4 (08:25→22:30)
[2021-12-16] MEDS: Insulin Lispro 100 UNIT/ML INSULN.PEN 16 UNIT SC ×2 (08:26→17:21)
[2021-12-16] MEDS: Aspirin 81 MG TAB.CHEW PO (08:27)
[2021-12-16] MEDS: Fenofibrate 145 MG Tablet PO (08:27)
[2021-12-16] MEDS: Ferrous Sulfate 325 MG Tablet PO (08:27)
[2021-12-16] MEDS: amLODIPine 10 MG Tablet PO (08:27)
[2021-12-16] MEDS: Senna/Docusate Sodium 1 Tablet 2 TABLET PO (08:28)
[2021-12-16] MEDS: Carvedilol 25 MG Tablet PO ×2 (08:29→22:27)
[2021-12-16] MEDS: Insulin Glargine-YFGN 100 UNIT/ML Pen 35 UNIT SC ×2 (10:27→22:28)
[2021-12-16] MEDS: Ascorbic Acid 500 MG Tablet 1000 MG PO (10:28)
[2021-12-16] MEDS: Furosemide 40 MG Tablet PO (10:28)
[2021-12-16] MEDS: Pantoprazole Sodium 20 MG Tablet PO (10:28)
[2021-12-16] MEDS: Arthritis Pain Compound 60 CLICK TUBE TOPICAL ×2 (10:32→22:26)
[2021-12-16 11:21] LABS: Bedside Glucose 173 mg/dL (74-106)
[2021-12-16 12:15] VITALS: O2SAT 97
[2021-12-16 13:10] VITALS: BMI 35.1
--- NOTE | 2021-12-16 16:10 | PCM.RU.PYE ---
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 Potential Problem List:: DVT, Bleeding, Infection, UTI, Aspiration, Falls, Skin Integrity and Depression Risk of Complications DVT: MOO Hose and - (Full dose Eliquis for AF) Bleeding: Monitor Lab Values, Nursing to Teach Precautions for anti-coagulation therapy., Wound, if applicable, to be assessed every shift. and Stroke patients assessed for lethargy or change in status. Infection: Clinical Staff to Monitor for S/S of infection: and S/S of infection include fever, redness, warmth, etc. Urinary Tract Infection: Monitor for frequency, burning, discomfort, or incontinence. and Nursing will obtain urine sample for urinalysis and C&S when ordered. Aspiration: Clinical staff will monitor for coughing, drooling, congestion., Speech will evaluate swallowing and dsyphasia. and Nursing will monitor patient swallowing during meals. Falls: Patient will be evaluated for Fall Precautions and Patient will be placed on Fall Precautions as indicated per protocol. Skin Breakdown: Nursing will assess skin daily using assessment tool. and Nursing will place on Skin Breakdown Precautions as indicated. Pain: Clinical staff will assess patient's pain level per protocol., Medications will be given, if needed, and the pain level reassessed. and Other methods: Massage, distraction, decrease stimulus, etc. used PRN. Plan of Care Patient requires physician specializing in physical medicine and rehab oversight to provide close medical supervision of rehab issues including: Pain Management, Sleep Problems, Bowel and Bladder, Medical and co-morbidity Management, DVT prophylaxis, Rehabilitation Leadership and Coordination of treatment team Patient needs Physical Therapy: For a minimum of 1 hour and At least 5 out of 7 days Patient needs Physical Therapy to improve:: Mobility, Strengthening, Transfers, Stretching, ROM, Endurance, Stairs, Gait and Balance Patient needs Occupational Therapy: For a minimum of 1 hour and At least 5 out of 7 days Patient needs Occupational Therapy to improve ADL's incl.: Eating, Grooming, Bathing, Dressing, Toileting, Toilet transfers, Community Reintegration, Higher functioning activities, Household tasks, Adaptive Equipment, Splinting and Other activities as determined Patient requires speech therapy: For a minimum of 1 hour and At least 5 out of 7 days Patient requires speech therapy for: Swallowing, Cognition, Language Skills and Compensatory Strategies Patient requires 24/7 Rehabilitation Nursing for: Pain Issues, Identifying and preventing risk factors, Monitoring and reporting current medical conditions, Assisting with ambulation, transfer, and all ADL's, Teaching patients about disease process and medications, Family teaching, Providing safe environment, Bowel and Bladder Issues, Skin integrity and Medication Management Patient needs Regulatory Scientist/ Case Management for: Discharge Planning, Arranging Home Equipment or Services and Family Interventions Patient needs Dietary and Nutrition Services for: Adequate Nutrition, Nutritional Supplements and Nutritional Education Goals Patient will remain: free from falls and or injury at time of discharge. Patient will perform bed mobility at: MOD I level of assist. Patient will complete transfers from bed to chair at: MOD I level of assist. Patient will ambulate: 100 feet, with LRD and - (250 feet with least restrictive device at standby assist on various surfaces) Patient will complete upper body dressing at: - (Supervised with assistive equipment) Patient will complete lower body dressing at: - (Supervised with assistive equipment) Patient will complete toileting at: - (Transfer on and off an elevated commode and perform toileting tasks at a distant supervision level) Patient will perform bathing at: - (Patient to demonstrate transfer on and off tub bench with use of grab bar and bathing tasks at supervision level at discharge) Patient will complete grooming at: MOD I level of assist. Patient will complete home management skills at: - (Supervision) Patient will achieve: - (1 curb step and 5 steps with 1 handrail and least restrictive device at standby assist) Patient will have pain level of: of 3 or less Patient's skin will: remain intact Patient will receive: adequate nutrition. Discharge Planning Pt Prognosis for Sig. Practical Improv. w/in Reasonable Time: Good Estimated Length of stay (days): 28 Anticipated D/C Destination: TBD Was Preadmission Assessment Accurate?: Yes
[2021-12-16 16:16] LABS: Bedside Glucose 289 mg/dL (74-106)
[2021-12-16 17:12] LABS: Ferritin 625 ng/mL (26-388); Iron 56 ug/dL (65-175); Iron Binding Capacity,Total 307 ug/dL (250-450); PERCENT IRON SATURATION 18.2 % (15.0-55.0)
[2021-12-16 19:25] VITALS: BP 165/75; PULSE 59; RESP 17; TEMP 36.6; O2SAT 97
[2021-12-16 22:10] VITALS: PULSE 62; O2SAT 98
[2021-12-16] MEDS: Atorvastatin Calcium 80 MG Tablet PO (22:27)
[2021-12-16 22:40] LABS: Bedside Glucose 229 mg/dL (74-106)
[2021-12-16 23:14] LABS: Bacteria 0 SEEN /hpf (None Seen); Mucous, Urine 0 SEEN /hpf (<or=2+); Squamous Epithelial Cells - UA 0 SEEN /hpf (0-5)
[2021-12-16 23:17] LABS: Color, Urine Yellow (Yellow); Glucose, Dipstick 100 mg/dl (Normal); Ketone-Dipstick Negative (Negative); Leukocyte Esterase-Dipstick Negative /ul (Negative); Nitrite-Dipstick Negative (Negative); Occult Blood-Urine Negative /ul (Negative); Protein-Dipstick Negative (Negative); Specific Gravity, Urine 1.015 (1.002-1.030); Urine Bilirubin Dipstick Negative (Negative); Urine Clarity Clear (Clear); Urine Urobilinogen Normal (Normal)
[2021-12-16 23:23] LABS: Hyaline Cast 0-5 SEEN /lpf (0-5)
[2021-12-16 23:24] LABS: Red Blood Cells-Urine 0-5 SEEN /hpf (0-5); White Blood Cells 0-5 SEEN /hpf (0-5)
--- NOTE | 2021-12-16 23:29 | NURSING ---
2300 UA obtained via straight cath. Pt tolerated well w/minimal c/o pain/discomfort. Clear, pale yellow urine noted, 600cc's output. Specimen sent to lab with tiger, yellow and subramanian top tubes.
[2021-12-17 01:18] VITALS: BMI 35.1
--- NOTE | 2021-12-17 02:24 | NURSING ---
REVIEWED AND AGREE WITH COPIER TECHNICIAN'S FUNCTIONAL ASSESSMENT AND HANDOFF CHARTING.
[2021-12-17 06:35] VITALS: O2SAT 95
[2021-12-17 07:10] LABS: Bedside Glucose 146 mg/dL (74-106)
[2021-12-17 08:17] VITALS: BP 133/69; PULSE 62; RESP 19; TEMP 36.9; O2SAT 97
[2021-12-17] MEDS: Aspirin 81 MG TAB.CHEW PO (08:26)
[2021-12-17] MEDS: Ferrous Sulfate 325 MG Tablet PO (08:26)
[2021-12-17] MEDS: Arthritis Pain Compound 60 CLICK TUBE TOPICAL ×2 (08:27→22:00)
[2021-12-17] MEDS: Carvedilol 25 MG Tablet PO ×2 (08:27→22:00)
[2021-12-17] MEDS: amLODIPine 10 MG Tablet PO (08:28)
[2021-12-17] MEDS: Pantoprazole Sodium 20 MG Tablet PO (08:28)
[2021-12-17] MEDS: Furosemide 40 MG Tablet PO (08:28)
[2021-12-17] MEDS: Fenofibrate 145 MG Tablet PO (08:29)
[2021-12-17] MEDS: Insulin Lispro 100 UNIT/ML INSULN.PEN 16 UNIT SC ×2 (08:31→17:01)
[2021-12-17] MEDS: Insulin Glargine-YFGN 100 UNIT/ML Pen 35 UNIT SC ×2 (08:31→22:04)
[2021-12-17 11:15] LABS: Bedside Glucose 133 mg/dL (74-106)
[2021-12-17 11:16] VITALS: BMI 35.1
[2021-12-17] MEDS: Insulin Lispro 100 UNIT/ML INSULN.PEN 10 UNIT SC (12:52)
[2021-12-17] MEDS: Ascorbic Acid 500 MG Tablet 1000 MG PO (12:52)
[2021-12-17 16:25] LABS: Bedside Glucose 139 mg/dL (74-106)
[2021-12-17 19:31] VITALS: BP 145/79; PULSE 71; RESP 16; TEMP 36.1; O2SAT 94
[2021-12-17] MEDS: Atorvastatin Calcium 80 MG Tablet PO (22:01)
[2021-12-17] MEDS: Insulin Lispro 100 UNIT/ML INSULN.PEN SC (22:02)
[2021-12-17 22:26] LABS: Bedside Glucose 189 mg/dL (74-106)
[2021-12-18 01:14] VITALS: BMI 35.1
[2021-12-18 07:11] LABS: Bedside Glucose 121 mg/dL (74-106)
[2021-12-18 07:36] VITALS: BP 127/68; PULSE 73; RESP 19; TEMP 36.6; O2SAT 99
[2021-12-18] MEDS: Aspirin 81 MG TAB.CHEW PO (08:21)
[2021-12-18] MEDS: Insulin Glargine-YFGN 100 UNIT/ML Pen 35 UNIT SC ×2 (08:22→21:29)
[2021-12-18] MEDS: Carvedilol 25 MG Tablet PO ×2 (08:22→21:28)
[2021-12-18] MEDS: Pantoprazole Sodium 20 MG Tablet PO ×2 (08:22→21:29)
[2021-12-18] MEDS: amLODIPine 10 MG Tablet PO (08:22)
[2021-12-18] MEDS: Fenofibrate 145 MG Tablet PO (08:22)
[2021-12-18] MEDS: Furosemide 40 MG Tablet PO (08:22)
[2021-12-18] MEDS: Insulin Lispro 100 UNIT/ML INSULN.PEN 16 UNIT SC ×2 (08:23→17:10)
[2021-12-18] MEDS: Arthritis Pain Compound 60 CLICK TUBE TOPICAL ×2 (08:29→21:28)
[2021-12-18 08:44] LABS: Vitamin D,25 Hydroxy 41.3 ng/mL
--- NOTE | 2021-12-18 10:25 | PN_ITS ---
Subjective Subjective Alcides was seen on team rounds today. His Magaly was present in the room. Afebrile VSS-systolic blood pressure is occasionally over goal however the diastolics have been within goal consistently. Heart rate is normal. Maintaining appropriate oxygen saturation on RA Oral intake is very good and has been over 2000 cc a day for the past 2 days. He is incontinent of urine. Weight is down approximately 2 pounds since 12/15/2021. The blood sugar record was reviewed and all blood sugars since Saturday evening have been less than 200 with no hypoglycemia. A lunchtime dose of 10 units Lispro was added to his drug regimen. Discussed with nursing - no problems that need addressed Reviewed the PT/OT/ST notes Medication list reviewed. He is on a iron supplement and I added ascorbic acid to add in absorption since he is chronically on a PPI. All lab was personally reviewed. Serum iron is low at 56 and the percent iron saturation is 18.2 which is low for a renal failure patient. Vitamin D is within normal limits. He complained of dysuria on Saturday and the UA showed no bacteria, 0-5 white blood cells and 0-5 RBCs. Hemoccult stool is positive. He denies epigastric pain or nausea. Denies JOEL, CP, SOB, no dysuria since he has increased fluid intake. Post void residuals are not high. Objective Data Objective Data Vital Signs: Vital Signs Temp Pulse Resp BP Pulse Ox 97.9 F 73 19 H 127/68 H 99 12/18/21 07:36 12/18/21 07:36 12/18/21 07:36 12/18/21 07:36 12/18/21 07:36 Oxygen Delivery Method Room Air Weight: 227 lb 1.218 oz Body Mass Index (BMI) 35.1 Intake & Output: Intake and Output for Last 24 Hours 12/16/21 12/17/21 12/18/21 23:59 23:59 23:59 Intake Total 2960 / 2960 2560 / 2560 410 / 410 Output Total 2250 / 2250 600 / 600 400 / 400 Balance 710 / 710 1960 / 1960 Lab / Micro Data Result Diagrams: 12/18/21 11:01 12/15/21 05:37 Labs: Laboratory Results - last 24 hr 12/16/21 16:15: Vitamin D 25-Hydroxy 41.3 12/17/21 11:09: POC Glucose 133 H 12/17/21 16:14: POC Glucose 139 H 12/17/21 21:59: POC Glucose 189 H 12/18/21 06:25: POC Glucose 121 H Micro: Microbiology 12/16/21 20:40 Stool Stool Occult Blood (SAUD) - Final Occult Blood Positive Physical Exam Const alert, oriented x3 and no apparent distress Constitutional Narrative: Sitting in the recliner at the bedside. He has been talkative with staff. Speech is more fluent than it was Saturday. He is smiling. is tearful. She tells that he did not have cognitive dysfunction prior to the most recent stroke and no difficulty with word finding. He is slow to process and answer questions but, he is better today than Saturday. Eyes PERRL, EOMs intact bilaterally, conjunctivae normal and no scleral icterus Resp normal respiratory effort and clear to auscultation bilaterally Cardio regular rate, regular rhythm, no murmurs and no gallops GI normal to inspection, nondistended, normoactive bowel sounds, soft to palpation and non-tender Extremity no calf tenderness and no pedal edema Skin General Skin Exam: no breakdown Rashes: no rashes Psych Psych Narrative: Affect is depressed. His tells me that she feels he was depressed prior to the stroke. His cat 4 months ago and he was very attached....the cat slept with him and he got tearful today when he started to talk about his cat. Magaly tells me that he was rarely talking to her at home. Both Magaly and Alcides are agreeable to starting an antidepressant. Appearance: grossly normal, appropriate and well kempt Activity / Motor Behavior: other avoids eye contact more often than not when he talks with me. Mood & Affect: sad and tearful Assessment & Plan Assessment/Plan (1) Heme + stool: (2) Iron deficiency: (3) Normochromic normocytic anemia: (4) detention current use of 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: (5) Left homonymous hemianopsia due to recent cerebral infarction: (6) Acute right MCA stroke: (7) Cognitive dysfunction: (8) Acute left hemiparesis: (9) Depression: PLAN: 1. Increase the Protonix to 20 mg BID. Continue the ferrous s ulfate and ascorbic acid and give a couple doses of IV iron sucrose. MCV has gradually been decreasing. 2. Recheck HH and a BMP and phos in the AM 3. Start Sertraline 25 mg Q AM 4. I suspect stunned brain......TICI2 circulation was restored to the ischemic penumbra......there was a small core infarct. He is already better than Saturday and I have a feeling he is going to progress well......... he was much better with coming to a stand with physical therapy today. He ambulated up to 150 feet with a wheeled walker and a slipper sock over the toe of the left shoe. He is unaware of most of his deficits. Poor safety awareness... 5. Continue therapy - destination at [place] TBD. SW asked Magaly and Alcides to think about a SNF so we are prepared for discharge if insurance drops him.......Olaf was invited to stay today to observe his afternoon PT session because she is quite tearful and is thinking the worst. Charges/Coding Visit Charges Inpatient E&M: 46899 Subs Hosp L2
[2021-12-18 11:07] LABS: Hematocrit 29.6 % (40-54)
[2021-12-18 11:21] LABS: Bedside Glucose 155 mg/dL (74-106)
[2021-12-18] MEDS: Ascorbic Acid 500 MG Tablet 1000 MG PO (12:07)
[2021-12-18] MEDS: Insulin Lispro 100 UNIT/ML INSULN.PEN 10 UNIT SC (12:07)
[2021-12-18] MEDS: Insulin Lispro 100 UNIT/ML INSULN.PEN SC (12:07)
[2021-12-18] MEDS: Ferrous Sulfate 325 MG Tablet PO (12:07)
[2021-12-18] MEDS: Sodium Ferric Gluconat 125 MG in 0.9% Normal Saline 100 ML 110 MG IV (14:54)
[2021-12-18] MEDS: 0.9% Saline Lock 10 ML Syringe IV (15:00)
[2021-12-18] MEDS: Sertraline 50 MG Tablet 25 MG PO (15:00)
--- NOTE | 2021-12-18 15:04 | CASEMGMT ---
Addendum entered by Imani Traore 12/18/21 15:48: Suggested Palliative referral to Dr. Marquez. agreed and explained to and pt - both agreeable. Referral made to [facility] via email. Original Note: Social Work IDT met with patient and for Team meeting. Discussed patient's progress in PT/OT/ST and nursing. Pt making progress. Explained [employer] insurance with NRD 12/19 and continued stay is not guaranteed. Pt is currently min-mod assist and occasionally needing x2. Pt tends to fatigue throughout the day. Pt using a slipper sock over left foot for stability with walking. Pt has poor left sided neglect and needs extra time to process, sometimes with cues. Pt is on altered diet and tends to pocket food to left side. Pt does not appear depressed and has humor. Pt is very motivated. however, states she has noticed some depression and definite change in cognition. Broached topic of needing alternative DC plan, suggesting SNF for continued therapy prior to DC home. became tearful. Offered for SW to return after Team to further discuss with . PT offered for to remain to watch pt during session. agreed. Spoke with further. Offered emotional support. Explained stroke support group. Rediscussed SNF option. Provided in-network SNF list with Medicare data, which is a limited selection. Explained [facility], [facility] and [facility]. Encouraged to read information on Medicare.gov/nursinghomecompare. Explained insurance can approve or deny precert for SNF. If denied, pt would pay out of pocket or apply for [facility], if eligible. Explained SNFs can run coverage for part B benefits and [id number] benefits, to better assess options for a SNF. expressed understanding. Inquired about finances. Pt states she just quit her part-time job b/c of pt, regardless of their financial situation. Pt/spouse appears eligible for LYNN and encouraged to apply, for SNF or community assistance. agreeable. Provided LYNN application. appreciative. SW to continue to follow. Imani Traore, FISHING ROD MECHANIC R[employer]
[2021-12-18 16:10] LABS: Bedside Glucose 98 mg/dL (74-106)
[2021-12-18 16:41] VITALS: BMI 35.1
[2021-12-18 20:14] VITALS: BP 130/71; PULSE 60; RESP 18; TEMP 36.6; O2SAT 96
[2021-12-18] MEDS: Atorvastatin Calcium 80 MG Tablet PO (21:28)
[2021-12-18] MEDS: Senna/Docusate Sodium 1 Tablet 2 TABLET PO (21:29)
[2021-12-18 22:16] LABS: Bedside Glucose 97 mg/dL (74-106)
[2021-12-19 04:06] VITALS: BMI 35.1
[2021-12-19 06:30] LABS: Anion Gap 7 (5-15); BUN 39 mg/dL (7-18); BUN/Creat Ratio 19.3 RATIO (10-20); Calcium,Total 9.5 mg/dL (8.5-10.1); Chloride 103 mmol/L (98-107); Creatinine, Serum 2.02 mg/dL (0.70-1.30); EST Glomerular Filtration Rate 35 mL/min (>60); Est Glom Filt Rate - Afr Amer 42 mL/min (>60); Estimated Creatinine Clearance 33.54 ml/min; Glucose 171 mg/dL (74-106); Phosphorus 3.5 mg/dL (2.5-4.9); Potassium 3.9 mmol/L (3.5-5.1); Sodium Level 134 mmol/L (136-145)
[2021-12-19 06:36] LABS: Bedside Glucose 163 mg/dL (74-106)
[2021-12-19 07:42] VITALS: BP 133/65; PULSE 68; RESP 18; TEMP 36.8; O2SAT 98
[2021-12-19] MEDS: APIXABAN 5 MG TABLET PO ×2 (08:27→20:19)
[2021-12-19] MEDS: Sertraline 50 MG Tablet 25 MG PO (08:27)
[2021-12-19] MEDS: Carvedilol 25 MG Tablet PO ×2 (08:28→20:19)
[2021-12-19] MEDS: Insulin Glargine-YFGN 100 UNIT/ML Pen 35 UNIT SC ×2 (08:28→20:34)
[2021-12-19] MEDS: amLODIPine 10 MG Tablet PO (08:28)
[2021-12-19] MEDS: Insulin Lispro 100 UNIT/ML INSULN.PEN 16 UNIT SC ×2 (08:28→17:37)
[2021-12-19] MEDS: Pantoprazole Sodium 20 MG Tablet PO ×2 (08:28→20:19)
[2021-12-19] MEDS: Fenofibrate 145 MG Tablet PO (08:28)
[2021-12-19] MEDS: Furosemide 40 MG Tablet PO (08:28)
[2021-12-19] MEDS: Insulin Lispro 100 UNIT/ML INSULN.PEN SC ×4 (08:29→20:35)
[2021-12-19] MEDS: Arthritis Pain Compound 60 CLICK TUBE TOPICAL ×2 (08:52→20:20)
[2021-12-19] MEDS: 0.9% Saline Lock 10 ML Syringe IV ×2 (12:02→20:44)
[2021-12-19] MEDS: Ferrous Sulfate 325 MG Tablet PO (12:03)
[2021-12-19] MEDS: Ascorbic Acid 500 MG Tablet 1000 MG PO (12:03)
[2021-12-19] MEDS: Insulin Lispro 100 UNIT/ML INSULN.PEN 10 UNIT SC (12:04)
[2021-12-19 12:15] LABS: Bedside Glucose 157 mg/dL (74-106)
--- NOTE | 2021-12-19 13:29 | PCM.PROGNOTE ---
Subjective Subjective Afebrile VSS-blood pressure is within goal today. Maintaining appropriate oxygen saturation on RA Oral intake is good The blood sugar record was reviewed. All blood sugars are less than 180 with no hypoglycemia. Incontinent of urine. Weight is stable Last bowel movement-12/19/2021 He is incontinent of urine. Discussed with nursing - no problems that need addressed Reviewed the PT/OT/ST notes Medication list reviewed. All lab was personally reviewed. Hemoglobin is stable at 10. Sodium is mildly decreased at 134 today. Potassium is normal at 3.9. The BUN is 39 and the creatinine today is 2.02 which is within his baseline, and in fact is lower than what it has been in the past several months. Alcides denies chest pain, palpitations, lightheadedness, shortness of breath, calf pain, nausea/vomiting/abdominal pain. He has some low back pain which is chronic. The also complains of some mild burning but only when he starts to urinate first in the morning. He also complains of bilateral knee pain, right greater than left. He states that the right knee swells more than the left and that the right ankle also swells more than on the left. This is chronic. Objective Data Objective Data Vital Signs: Vital Signs Temp Pulse Resp BP Pulse Ox 98.2 F 68 18 133/65 H 98 12/19/21 07:42 12/19/21 07:42 12/19/21 07:42 12/19/21 07:42 12/19/21 07:42 Oxygen Delivery Method Room Air Weight: 228 lb 2.855 oz Body Mass Index (BMI) 35.1 Intake & Output: Intake and Output for Last 24 Hours 12/17/21 12/18/21 12/19/21 23:59 23:59 23:59 Intake Total 2560 / 2560 1720 / 1720 880 / 880 Output Total 600 / 600 1200 / 1200 250 / 250 Balance 1960 / 1960 520 / 520 630 / 630 Lab / Micro Data Result Diagrams: 01/02/22 05:35 01/02/22 05:35 Labs: Laboratory Results - last 24 hr 12/18/21 16:03: POC Glucose 98 12/18/21 21:32: POC Glucose 97 12/19/21 05:41: Sodium 134 L, Potassium 3.9, Chloride 103, Carbon Dioxide 24.0, Anion Gap 7, BUN 39 H, Creatinine 2.02 H, Estim Creat Clear Calc 33.54, Est GFR (MDRD) Af Amer 42 L, Est GFR (MDRD) Non-Af 35 L, BUN/Creatinine Ratio 19.3, Glucose 171 H, Calcium 9.5, Phosphorus 3.5 12/19/21 06:28: POC Glucose 163 H 12/19/21 12:00: POC Glucose 157 H Micro: Microbiology 12/16/21 20:40 Stool Stool Occult Blood (SAUD) - Final Occult Blood Positive Physical Exam Const alert, oriented x3 and no apparent distress Constitutional Narrative: pale, flat affect. General Appearance: cooperative, well kempt and well developed Resp normal respiratory effort, normal air movement, no use of accessory muscles and clear to auscultation bilaterally Effort and Inspection: able to speak in complete sentences Cardio regular rate, regular rhythm and no gallops GI normal to inspection, nondistended, normoactive bowel sounds, soft to palpation and non-tender GI Narrative: no flank pain Extremity no calf tenderness Extremity Narrative: He has mild edema of the R knee and the R ankle. No erythema over and knee and no openings in the skin. He has the TEDS in place. Skin General Skin Exam: no breakdown Rashes: no rashes Psych denies hallucinations, denies homicidal ideation and denies suicidal ideation Appearance: grossly normal and appropriate Attitude: withdrawn Activity / Motor Behavior: avoids eye contact Speech: minimal and soft Mood & Affect: flat affect; Negative for tearful Thought Content: normal thought content Attention / Concentration: other inattention to the left side due to L homonymous hemianopia Memory / Cognition: cognition impaired Insight: fair Judgement: fair Assessment & Plan Assessment/Plan (1) Cerebral artery occlusion with cerebral infarction: PLAN: Continue therapy. Continue the current dose of Eliquis which is 5 mg BID (increased from 2.5 mg BID after recent CVA) Continue ASA, Atorvastatin, Fenofibrate Teaching on RF's for stroke and goals for tx of HTN, HLD and DM discussed (2) Acute right MCA stroke: (3) Longstanding persistent atrial fibrillation: PLAN: Good rate control with Coreg - continue the current dose of 25 mg BID Keep the mag > or equal to 2 Keep the potassium at least 4........he has stage 3b CRF but hyperkalemia is not an issue at this time. He is not on an JAVY or an ARB and does not list as an allergy. (4) Depression: PLAN: He has been started on sertraline 25 mg daily, increased to a more therapeutic dose in 1 week if no adverse side effects. He may benefit from psychotherapy post discharge to learn how to deal with his chronic illnesses and disabilities. (5) Urinary incontinence: PLAN: More likely than not secondary to recent CVA. Post void residuals are not high. (6) Diabetes mellitus type 1.5, managed as type 1: PLAN: The goal is a hemoglobin A1c of 7 or under. Would like to see the fasting less than 130 and all blood sugars less than 180 with no hypoglycemia. He is pretty aware of what he should be eating but, lately he has found it hard to stick to the diet. (7) Left homonymous hemianopsia due to recent cerebral infarction: PLAN: Continue working with therapy to avoid running into the side of the doorway and missing obstacles on the left side while walking. Charges/Coding Visit Charges Inpatient E&M: 30352 Subs Hosp L2
[2021-12-19 16:36] VITALS: BMI 35.1
[2021-12-19 18:01] LABS: Bedside Glucose 174 mg/dL (74-106)
[2021-12-19 19:37] VITALS: BP 134/67; PULSE 61; RESP 17; TEMP 36.5; O2SAT 94
[2021-12-19 20:00] VITALS: PULSE 61; RESP 17; O2SAT 94; BMI 35.1
[2021-12-19] MEDS: Atorvastatin Calcium 80 MG Tablet PO (20:19)
[2021-12-19 22:10] LABS: Bedside Glucose 179 mg/dL (74-106)
--- NOTE | 2021-12-20 02:00 | NURSING ---
Reviewed and agree with MUSIC INDUSTRY [employer]NS[employer]IP documentation and assessment charting.
[2021-12-20 06:25] LABS: Bedside Glucose 117 mg/dL (74-106)
[2021-12-20 07:51] VITALS: BP 119/64; PULSE 64; RESP 16; TEMP 36.6; O2SAT 98
[2021-12-20] MEDS: Arthritis Pain Compound 60 CLICK TUBE TOPICAL ×2 (08:40→20:36)
[2021-12-20] MEDS: amLODIPine 10 MG Tablet PO (08:42)
[2021-12-20] MEDS: Pantoprazole Sodium 20 MG Tablet PO ×2 (08:42→20:17)
[2021-12-20] MEDS: Sertraline 50 MG Tablet 25 MG PO (08:42)
[2021-12-20] MEDS: Furosemide 40 MG Tablet PO (08:43)
[2021-12-20] MEDS: Carvedilol 25 MG Tablet PO ×2 (08:43→20:17)
[2021-12-20] MEDS: Insulin Glargine-YFGN 100 UNIT/ML Pen 35 UNIT SC ×2 (08:43→20:35)
[2021-12-20] MEDS: Fenofibrate 145 MG Tablet PO (08:43)
[2021-12-20] MEDS: APIXABAN 5 MG TABLET PO ×2 (08:43→20:17)
[2021-12-20] MEDS: Insulin Lispro 100 UNIT/ML INSULN.PEN 16 UNIT SC ×2 (08:44→17:26)
[2021-12-20 12:01] LABS: Bedside Glucose 191 mg/dL (74-106)
[2021-12-20] MEDS: Ferrous Sulfate 325 MG Tablet PO (12:13)
[2021-12-20] MEDS: Ascorbic Acid 500 MG Tablet 1000 MG PO (12:13)
[2021-12-20] MEDS: Insulin Lispro 100 UNIT/ML INSULN.PEN 10 UNIT SC (12:14)
[2021-12-20] MEDS: Insulin Lispro 100 UNIT/ML INSULN.PEN SC ×3 (12:14→20:36)
[2021-12-20 16:41] LABS: Bedside Glucose 201 mg/dL (74-106)
[2021-12-20 16:45] VITALS: BMI 35.1
[2021-12-20 20:10] VITALS: BP 143/51; PULSE 84; RESP 14; TEMP 36.6; O2SAT 98; BMI 35.1
[2021-12-20] MEDS: Atorvastatin Calcium 80 MG Tablet PO (20:17)
[2021-12-20] MEDS: 0.9% Saline Lock 10 ML Syringe IV (20:38)
[2021-12-20 20:56] LABS: Bedside Glucose 197 mg/dL (74-106)
[2021-12-21] MEDS: Acetaminophen 325 MG Tablet 650 MG PO ×2 (04:52→21:02)
[2021-12-21 07:21] LABS: Bedside Glucose 72 mg/dL (74-106)
--- NOTE | 2021-12-21 07:21 | NURSING ---
REVIEWED AND AGREE WITH CAN LINE OPERATOR'S FUNCTIONAL ASSESSMENT AND HANDOFF CHARTING.
[2021-12-21 08:37] VITALS: BP 125/62; PULSE 57; RESP 18; TEMP 36.6; O2SAT 98
[2021-12-21] MEDS: Arthritis Pain Compound 60 CLICK TUBE TOPICAL ×2 (08:38→21:02)
[2021-12-21] MEDS: Furosemide 40 MG Tablet PO (08:41)
[2021-12-21] MEDS: Sertraline 50 MG Tablet 25 MG PO (08:41)
[2021-12-21] MEDS: Fenofibrate 145 MG Tablet PO (08:41)
[2021-12-21] MEDS: APIXABAN 5 MG TABLET PO ×2 (08:41→21:03)
[2021-12-21] MEDS: amLODIPine 10 MG Tablet PO (08:41)
[2021-12-21] MEDS: Carvedilol 25 MG Tablet PO ×2 (08:41→21:03)
[2021-12-21] MEDS: Pantoprazole Sodium 20 MG Tablet PO ×2 (08:41→21:03)
[2021-12-21] MEDS: Insulin Glargine-YFGN 100 UNIT/ML Pen 35 UNIT SC (08:49)
[2021-12-21] MEDS: Insulin Lispro 100 UNIT/ML INSULN.PEN 16 UNIT SC ×2 (08:49→18:07)
[2021-12-21 08:51] LABS: Bedside Glucose 216 mg/dL (74-106)
[2021-12-21 11:25] LABS: Bedside Glucose 135 mg/dL (74-106)
--- NOTE | 2021-12-21 11:36 | PCM.PROGNOTE ---
Subjective Subjective Afebrile VSS-blood pressure is well controlled Maintaining appropriate oxygen saturation on RA Oral intake is good Weight is stable Discussed with nursing - no problems that need addressed Reviewed the PT/OT/ST notes Medication list reviewed. The blood sugar record was reviewed. The blood sugar this morning was 72 and last night at bedtime it was 197. The blood sugar was rechecked after breakfast and was 216. Blood sugar at noon is 135. Tells me that he is sleeping well. He has good oral intake. Continues to deny CP, SOB, palpitations, lightheadedness, N/V. His knee pain is somewhat better with the arthritis cream TID. He has a significant limp with the R leg.......it also is somewhat bowed. Will have PT measure the leg length BL. Objective Data Objective Data Vital Signs: Vital Signs Temp Pulse Resp BP Pulse Ox 97.9 F 57 L 18 125/62 H 98 12/21/21 08:37 12/21/21 08:37 12/21/21 08:37 12/21/21 08:37 12/21/21 08:37 Oxygen Delivery Method Room Air Weight: 227 lb 8.273 oz Body Mass Index (BMI) 35.1 Intake & Output: Intake and Output for Last 24 Hours 12/19/21 12/20/21 12/21/21 23:59 23:59 23:59 Intake Total 1600 / 1600 840 / 840 360 / 360 Output Total 650 / 650 200 / 200 475 / 475 Balance 950 / 950 640 / 640 -115 / -115 Lab / Micro Data Result Diagrams: 01/02/22 05:35 01/02/22 05:35 Labs: Laboratory Results - last 24 hr 12/20/21 11:54: POC Glucose 191 H 12/20/21 16:35: POC Glucose 201 H 12/20/21 20:34: POC Glucose 197 H 12/21/21 07:16: POC Glucose 72 L 12/21/21 08:47: POC Glucose 216 H 12/21/21 11:22: POC Glucose 135 H Micro: Microbiology 12/16/21 20:40 Stool Stool Occult Blood (SAUD) - Final Occult Blood Positive Physical Exam Const alert and oriented x3 General Appearance: cooperative Resp clear to auscultation bilaterally Effort and Inspection: able to speak in complete sentences Cardio Cardio Narrative: irreg with controlled VR GI normal to inspection, nondistended, normoactive bowel sounds, soft to palpation and non-tender GI Narrative: no guarding with palpation Extremity no calf tenderness Extremity Narrative: Edema of the RLE from the knee to the ankle......being controlled by the compression stockings which he does not always wear at home. Skin General Skin Exam: no breakdown Rashes: no rashes Assessment & Plan Assessment/Plan (1) Diabetes mellitus type 1.5, managed as type 1: (2) Cerebral artery occlusion with cerebral infarction: PLAN: 1. Decrease the p.m. glargine to 30 units but continue a.m. 35 units 2. Discontinue sliding scale insulin 3. Continue to check blood sugars before meals and at bedtime. 4. Continue PT/OT/ST. He is making progress 5. Continue teaching on how to prevent additional strokes. Charges/Coding Visit Charges Inpatient E&M: 05222 Subs Hosp L2
[2021-12-21] MEDS: Ascorbic Acid 500 MG Tablet 1000 MG PO (12:05)
[2021-12-21] MEDS: Ferrous Sulfate 325 MG Tablet PO (12:06)
[2021-12-21] MEDS: Insulin Lispro 100 UNIT/ML INSULN.PEN 10 UNIT SC (12:07)
[2021-12-21] MEDS: 0.9% Saline Lock 10 ML Syringe IV (12:09)
[2021-12-21 16:36] LABS: Bedside Glucose 172 mg/dL (74-106)
[2021-12-21 16:56] VITALS: BMI 35.1
[2021-12-21 20:30] VITALS: PULSE 57; O2SAT 96; BMI 35.1
[2021-12-21 20:53] VITALS: BP 164/81; PULSE 57; RESP 14; TEMP 36.5; O2SAT 96
[2021-12-21] MEDS: Atorvastatin Calcium 80 MG Tablet PO (21:03)
[2021-12-21] MEDS: Insulin Glargine-YFGN 100 UNIT/ML Pen 30 UNIT SC (21:13)
[2021-12-21 21:25] LABS: Bedside Glucose 287 mg/dL (74-106)
--- NOTE | 2021-12-22 02:15 | NURSING ---
Reviewed and agree with WHITE LEAD GRINDER assessment.
[2021-12-22 06:00] VITALS: BP 147/68; PULSE 59; RESP 18; TEMP 36.3; O2SAT 97
[2021-12-22 06:25] LABS: Hematocrit 29.1 % (40-54); Hemoglobin 9.7 g/dL (13.0-16.5)
[2021-12-22 06:36] LABS: Bedside Glucose 140 mg/dL (74-106)
[2021-12-22] MEDS: 0.9% Saline Lock 10 ML Syringe IV (06:38)
[2021-12-22 06:40] LABS: Anion Gap 5 (5-15); BUN 45 mg/dL (7-18); BUN/Creat Ratio 20.7 RATIO (10-20); Calcium,Total 9.1 mg/dL (8.5-10.1); Chloride 104 mmol/L (98-107); Creatinine, Serum 2.17 mg/dL (0.70-1.30); EST Glomerular Filtration Rate 32 mL/min (>60); Est Glom Filt Rate - Afr Amer 39 mL/min (>60); Estimated Creatinine Clearance 31.22 ml/min; Glucose 135 mg/dL (74-106); Sodium Level 136 mmol/L (136-145)
[2021-12-22 07:58] VITALS: BP 112/62; PULSE 59
[2021-12-22] MEDS: Insulin Lispro 100 UNIT/ML INSULN.PEN 16 UNIT SC ×2 (07:59→17:32)
[2021-12-22] MEDS: Insulin Glargine-YFGN 100 UNIT/ML Pen 35 UNIT SC (08:00)
[2021-12-22] MEDS: Senna/Docusate Sodium 1 Tablet 2 TABLET PO ×2 (08:01→21:58)
[2021-12-22] MEDS: amLODIPine 10 MG Tablet PO (08:02)
[2021-12-22] MEDS: APIXABAN 5 MG TABLET PO ×2 (08:02→21:57)
[2021-12-22] MEDS: Furosemide 40 MG Tablet PO (08:02)
[2021-12-22] MEDS: Sertraline 50 MG Tablet 25 MG PO (08:03)
[2021-12-22] MEDS: Arthritis Pain Compound 60 CLICK TUBE TOPICAL ×2 (08:03→21:57)
[2021-12-22] MEDS: Pantoprazole Sodium 20 MG Tablet PO ×2 (08:03→21:57)
[2021-12-22] MEDS: Fenofibrate 145 MG Tablet PO (08:03)
[2021-12-22] MEDS: Carvedilol 25 MG Tablet PO ×2 (08:05→21:56)
--- NOTE | 2021-12-22 10:31 | PCM.PN.BLA ---
Progress Note Afebrile Vital signs stable-blood pressure is adequately controlled Maintaining appropriate oxygen saturation on room air Last bowel movement was 12/21/2021 Remains incontinent of urine. All lab was personally reviewed. Hemoglobin is 9.7 which is stable. Sodium is now within normal limits, up from 134 on 12/19/2021. The potassium is 4.0. The BUN is 45 with a creatinine of 2.17 which is actually better than his creatinine has been over the past year. Blood sugar record was reviewed. FBS today is 140 and the blood sugar at at bedtime was 287? Will ask his if she brought in food for him at supper yesterday. Denies CP, SOB, dysuria, lightheadedness, abd pain, N/V and calf pain. He is sleeping well. Tells me that he ate a big supper last night and that might be why the BS was so high at HS. Will continue the monitor the BS's AC and HS with no SSI coverage and adjust the insulin as needed. Physical Exam Const alert, oriented x3 and no apparent distress General Appearance: cooperative Resp normal air movement and clear to auscultation bilaterally Effort and Inspection: able to speak in complete sentences Cardio regular rate, regular rhythm and no gallops GI normal to inspection, nondistended, normoactive bowel sounds, soft to palpation and non-tender Extremity no calf tenderness and no pedal edema Skin General Skin Exam: no breakdown Rashes: no rashes Neuro Neuro Narrative: doing better in therapy. He still has significant Left side neglect. He has picked up the pace with ambulation and his speech is a little louder and more fluent. Assessment & Plan Assessment/Plan (1) Depression: (2) Normochromic normocytic anemia: (3) Iron deficiency: (4) Diabetes mellitus type 1.5, managed as type 1: (5) Cerebral artery occlusion with cerebral infarction: (6) Physical debility: (7) Cognitive dysfunction: (8) Acute left hemiparesis: (9) Jhon-neglect of left side: (10) Left homonymous hemianopsia due to recent cerebral infarction: PLAN: 1. If no adverse reactions with the Zoloft by Saturday will consider increasing the dose to 50 mg ( no dosage adjustment is necessary with renal failure) 2. Continue therapy 3. Will bring his in for family training prior to DC to see if she will be able to manage at home......destination at discharge TBD Visit Charges Inpatient E&M: 29039 Subs Hosp L2
[2021-12-22 11:11] LABS: Bedside Glucose 157 mg/dL (74-106)
[2021-12-22] MEDS: Insulin Lispro 100 UNIT/ML INSULN.PEN 10 UNIT SC (12:26)
[2021-12-22] MEDS: Ascorbic Acid 500 MG Tablet 1000 MG PO (12:27)
[2021-12-22] MEDS: Ferrous Sulfate 325 MG Tablet PO (12:27)
[2021-12-22 15:48] VITALS: BMI 35.1
[2021-12-22 16:16] LABS: Bedside Glucose 174 mg/dL (74-106)
[2021-12-22 19:16] VITALS: BP 125/68; PULSE 57; RESP 18; TEMP 36.8; O2SAT 97
[2021-12-22] MEDS: Insulin Glargine-YFGN 100 UNIT/ML Pen 30 UNIT SC (21:33)
[2021-12-22 21:51] LABS: Bedside Glucose 228 mg/dL (74-106)
[2021-12-22] MEDS: Atorvastatin Calcium 80 MG Tablet PO (21:57)
[2021-12-22 23:04] VITALS: BMI 35.1
--- NOTE | 2021-12-23 01:26 | MDS.RN ---
Reviewed and agree with pt assessment.
--- NOTE | 2021-12-23 01:33 | NURSING ---
Reviewed and agree with HOUSE PIPING INSPECTOR assessment.
[2021-12-23 06:46] LABS: Bedside Glucose 178 mg/dL (74-106)
[2021-12-23 07:37] VITALS: BP 151/56; PULSE 88; RESP 16; TEMP 36.5; O2SAT 98
[2021-12-23] MEDS: Insulin Lispro 100 UNIT/ML INSULN.PEN 16 UNIT SC ×2 (07:41→17:02)
[2021-12-23] MEDS: Arthritis Pain Compound 60 CLICK TUBE TOPICAL ×2 (09:10→20:38)
[2021-12-23] MEDS: Carvedilol 25 MG Tablet PO ×2 (09:11→20:37)
[2021-12-23] MEDS: APIXABAN 5 MG TABLET PO ×2 (09:11→20:37)
[2021-12-23] MEDS: Pantoprazole Sodium 20 MG Tablet PO ×2 (09:12→20:36)
[2021-12-23] MEDS: amLODIPine 10 MG Tablet PO (09:13)
[2021-12-23] MEDS: Senna/Docusate Sodium 1 Tablet 2 TABLET PO ×2 (09:13→20:36)
[2021-12-23] MEDS: Sertraline 50 MG Tablet 25 MG PO (09:14)
[2021-12-23] MEDS: Fenofibrate 145 MG Tablet PO (09:14)
[2021-12-23] MEDS: Furosemide 40 MG Tablet PO (09:15)
[2021-12-23] MEDS: Insulin Glargine-YFGN 100 UNIT/ML Pen 35 UNIT SC (10:41)
[2021-12-23 11:15] LABS: Bedside Glucose 177 mg/dL (74-106)
[2021-12-23] MEDS: Ascorbic Acid 500 MG Tablet 1000 MG PO (11:43)
[2021-12-23] MEDS: Ferrous Sulfate 325 MG Tablet PO (11:43)
[2021-12-23] MEDS: Insulin Lispro 100 UNIT/ML INSULN.PEN 12 UNIT SC (11:43)
[2021-12-23 12:56] VITALS: BMI 35.1
[2021-12-23 16:30] LABS: Bedside Glucose 237 mg/dL (74-106)
[2021-12-23] MEDS: Atorvastatin Calcium 80 MG Tablet PO (20:37)
[2021-12-23] MEDS: Insulin Glargine-YFGN 100 UNIT/ML Pen 30 UNIT SC (20:41)
[2021-12-23 20:56] LABS: Bedside Glucose 233 mg/dL (74-106)
[2021-12-23 21:20] LABS: Bedside Glucose 224 mg/dL (74-106)
[2021-12-23 22:00] VITALS: BP 142/66; PULSE 61; RESP 18; TEMP 36.6; O2SAT 97
[2021-12-24 00:43] VITALS: BMI 35.1
[2021-12-24 06:31] LABS: Bedside Glucose 133 mg/dL (74-106)
[2021-12-24] MEDS: Insulin Lispro 100 UNIT/ML INSULN.PEN 16 UNIT SC ×2 (07:37→17:00)
[2021-12-24 07:53] VITALS: BP 133/67; PULSE 66; RESP 16; TEMP 36.4; O2SAT 94
[2021-12-24] MEDS: Senna/Docusate Sodium 1 Tablet 2 TABLET PO (09:42)
[2021-12-24] MEDS: Pantoprazole Sodium 20 MG Tablet PO ×2 (09:42→21:16)
[2021-12-24] MEDS: Furosemide 40 MG Tablet PO (09:42)
[2021-12-24] MEDS: Carvedilol 25 MG Tablet PO ×2 (09:42→21:16)
[2021-12-24] MEDS: Fenofibrate 145 MG Tablet PO (09:42)
[2021-12-24] MEDS: APIXABAN 5 MG TABLET PO ×2 (09:42→21:16)
[2021-12-24] MEDS: Arthritis Pain Compound 60 CLICK TUBE TOPICAL ×2 (09:43→21:16)
[2021-12-24] MEDS: amLODIPine 10 MG Tablet PO (09:43)
[2021-12-24] MEDS: Insulin Glargine-YFGN 100 UNIT/ML Pen 35 UNIT SC (09:43)
[2021-12-24] MEDS: Sertraline 50 MG Tablet 25 MG PO (09:46)
[2021-12-24] MEDS: Ascorbic Acid 500 MG Tablet 1000 MG PO (11:24)
[2021-12-24] MEDS: Insulin Lispro 100 UNIT/ML INSULN.PEN 12 UNIT SC (11:25)
[2021-12-24] MEDS: Ferrous Sulfate 325 MG Tablet PO (11:25)
[2021-12-24 11:40] LABS: Bedside Glucose 130 mg/dL (74-106)
[2021-12-24 15:59] VITALS: BMI 35.1
[2021-12-24 16:16] LABS: Bedside Glucose 183 mg/dL (74-106)
[2021-12-24 19:05] VITALS: BP 156/85; PULSE 59; RESP 18; TEMP 36.4; O2SAT 97
[2021-12-24] MEDS: 0.9% Saline Lock 10 ML Syringe IV (19:48)
[2021-12-24 21:00] VITALS: BMI 35.1
[2021-12-24 21:10] LABS: Bedside Glucose 181 mg/dL (74-106)
[2021-12-24] MEDS: Insulin Glargine-YFGN 100 UNIT/ML Pen 30 UNIT SC (21:14)
[2021-12-24] MEDS: Atorvastatin Calcium 80 MG Tablet PO (21:16)
[2021-12-24 22:00] VITALS: RESP 16
[2021-12-25 06:46] LABS: Bedside Glucose 74 mg/dL (74-106)
[2021-12-25 07:25] VITALS: BP 119/64; PULSE 60; RESP 16; TEMP 36.6; O2SAT 99
[2021-12-25] MEDS: Insulin Lispro 100 UNIT/ML INSULN.PEN 16 UNIT SC (08:06)
[2021-12-25 08:11] LABS: Bedside Glucose 131 mg/dL (74-106)
[2021-12-25] MEDS: Arthritis Pain Compound 60 CLICK TUBE TOPICAL ×2 (09:21→21:14)
[2021-12-25] MEDS: Fenofibrate 145 MG Tablet PO (09:21)
[2021-12-25] MEDS: APIXABAN 5 MG TABLET PO ×2 (09:21→21:14)
[2021-12-25] MEDS: Senna/Docusate Sodium 1 Tablet 2 TABLET PO (09:21)
[2021-12-25] MEDS: Carvedilol 25 MG Tablet PO ×2 (09:21→21:14)
[2021-12-25] MEDS: amLODIPine 10 MG Tablet PO (09:21)
[2021-12-25] MEDS: Pantoprazole Sodium 20 MG Tablet PO ×2 (09:21→21:14)
[2021-12-25] MEDS: Furosemide 40 MG Tablet PO (09:21)
[2021-12-25] MEDS: Sertraline 50 MG Tablet 25 MG PO (09:22)
[2021-12-25] MEDS: Insulin Glargine-YFGN 100 UNIT/ML Pen 35 UNIT SC (09:23)
[2021-12-25 11:15] LABS: Bedside Glucose 89 mg/dL (74-106)
[2021-12-25] MEDS: Ascorbic Acid 500 MG Tablet 1000 MG PO (12:44)
[2021-12-25] MEDS: Ferrous Sulfate 325 MG Tablet PO (12:44)
[2021-12-25] MEDS: Insulin Lispro 100 UNIT/ML INSULN.PEN 12 UNIT SC (12:46)
[2021-12-25 13:01] LABS: Bedside Glucose 149 mg/dL (74-106)
--- NOTE | 2021-12-25 14:04 | CASEMGMT ---
Addendum entered by Imani Traore 12/25/21 14:54: Received Medicaid pending number: [id number]. Jacob Jose Mariamariola is CM and will send request for resource info to determine eligibility. Updated . Original Note: Social Work IDT met with patient and for Team meeting. Discussed patient's progress in PT/OT/ST and nursing. Pt making progress. Explained the NRD /DC is uncertain at this time from [facility]. Encouraged to operate under premise DC is 12/26, if insurance does not approve more time. Inquired to if she feels safe taking pt home or will need SNF. would feel more comfortable having pt continue in a SNF with therapy. IDT agrees. Inquired about Medicaid application for SNF. stated she submitted the application online 12/22 and received a call from a [facility] CM this date. CM to mail verifications of documents to to complete. SW to contact [facility] to inquire further. Inquired to about SNF choices. inquired about [facility]. Explained if [facility] does not approve SNF stay, [facility] does not take [facility]. [facility] and Ever is looking into if [facility] contract is in place yet, but will review the referral for [facility] as well. Referral sent. Will keep and IDT updated. NICKI Scott
[2021-12-25 15:34] VITALS: BMI 35.1
--- NOTE | 2021-12-25 16:06 | PCM.PROGNOTE ---
Subjective Subjective Alcides was seen on TEAM rounds today. His was present in the room for rounds. Afebrile VSS Maintaining appropriate oxygen saturation on RA Oral intake is good Discussed with nursing - no problems that need addressed Reviewed the PT/OT/ST notes and discussed in huddle prior to rounds. Making good progress. Unfortunately the informed us that Alcides was cut by his Insurance company on the ......we were not notified until today and his states that she has been checking his chart on [facility] and the denial did not appear in the chart until today. Medication list reviewed. Blood sugar record was reviewed. FBS was low at 74 this AM. HS sugar was 181. He tells me that supper is his largest meal of the day. Alcides denies CP, SOB, lightheadedness, palpitations, cough, abd pain, dysuria, JOEL. He is sleeping well. He is sitting in the chair at the bedside and appears comfortable. He is more talkative than he was last week and his speech is more fluent. His awareness of left side neglect is improving and he is no longer running into the side of the doorway. He ambulated 110 ft today with the [facility] at [facility] and he is doing better staying within his walker now. He actually is doing better this week without the slipper sock. CGA and SBA to stand and pivot from various surfaces. He is able to ascend/descend 5 steps of various heights with 2 HR's at CGA. Still needing some cues to scan to the left. Still having cognitive deficit but is improving with daily ST. His does not feel that she can adequately care for him at home since at times he is still 2 person assist. Alert, more talkative, cooperative, NAD, appropriate, more facial expression today and his affect is less flat. Lungs are CTA HRRR, no gallop abd is soft, ND, NT and he is having regular BM's no edema of the LE's and denies calf tenderness. Impressions 1. Status postacute right MCA stroke 2. Status post thrombectomy 3. Left hemiparesis 4. Cognitive dysfunction 5. Left side neglect 6. Left homonymous hemianopsia 7. Diabetes mellitus type 1.5 8. [id number]-[id number] Decrease the PM Glargine to 25 units and increase the Lispro with supper to 18 units. Continue to monitor the BS's AC and HS. Will ask to do a peer to peer review on this pt because we are still adjusting meds and he is making good progress with therapy but, he is not quite ready for his to be able to safely care for him at home without a second person available to assist. I feel like another week in rehab would make a tremendous difference for this 71 YO man. Objective Data Objective Data Vital Signs: Vital Signs Temp Pulse Resp BP Pulse Ox 97.9 F 60 16 119/64 99 12/25/21 07:25 12/25/21 07:25 12/25/21 07:25 12/25/21 07:25 12/25/21 07:25 Oxygen Delivery Method Room Air Weight: 221 lb 5.506 oz Body Mass Index (BMI) 35.1 Intake & Output: Intake and Output for Last 24 Hours 12/23/21 12/24/21 12/25/21 23:59 23:59 23:59 Intake Total 1420 / 1660 1900 / 1900 660 / 660 Output Total 1650 / 2000 1800 / 1800 500 / 500 Balance -230 / -340 100 / 100 160 / 160 Lab / Micro Data Result Diagrams: 12/22/21 06:10 12/22/21 06:10 Labs: Laboratory Results - last 24 hr 12/24/21 16:11: POC Glucose 183 H 12/24/21 21:00: POC Glucose 181 H 12/25/21 06:25: POC Glucose 74 12/25/21 08:00: POC Glucose 131 H 12/25/21 11:12: POC Glucose 89 12/25/21 12:45: POC Glucose 149 H Micro: Microbiology 12/16/21 20:40 Stool Stool Occult Blood (SAUD) - Final Occult Blood Positive Charges/Coding Visit Charges Inpatient E&M: 13639 Subs Hosp L2
[2021-12-25 16:45] LABS: Bedside Glucose 140 mg/dL (74-106)
[2021-12-25 19:27] VITALS: BP 156/61; PULSE 61; RESP 18; TEMP 36.7; O2SAT 94
[2021-12-25 20:30] VITALS: PULSE 61; RESP 18; O2SAT 94; BMI 35.1
[2021-12-25] MEDS: Atorvastatin Calcium 80 MG Tablet PO (21:14)
[2021-12-25] MEDS: Insulin Glargine-YFGN 100 UNIT/ML Pen 25 UNIT SC (21:15)
[2021-12-25] MEDS: Insulin Lispro 100 UNIT/ML INSULN.PEN 18 UNIT SC (21:16)
[2021-12-25 22:10] LABS: Bedside Glucose 275 mg/dL (74-106)
--- NOTE | 2021-12-26 02:44 | NURSING ---
REVIEWED AND AGREE WITH HARDENING MACHINE OPERATOR DOCUMENTATION AND ASSESSMENT CHARTING
[2021-12-26 06:45] LABS: Bedside Glucose 124 mg/dL (74-106)
[2021-12-26 07:33] VITALS: BP 117/63; PULSE 58; RESP 16; TEMP 36.7; O2SAT 97
[2021-12-26] MEDS: Insulin Lispro 100 UNIT/ML INSULN.PEN 16 UNIT SC (07:47)
[2021-12-26] MEDS: Insulin Glargine-YFGN 100 UNIT/ML Pen 35 UNIT SC (07:47)
[2021-12-26] MEDS: Furosemide 40 MG Tablet PO (07:48)
[2021-12-26] MEDS: amLODIPine 10 MG Tablet PO (07:48)
[2021-12-26] MEDS: Fenofibrate 145 MG Tablet PO (07:48)
[2021-12-26] MEDS: Sertraline 50 MG Tablet 25 MG PO (07:49)
[2021-12-26] MEDS: Pantoprazole Sodium 20 MG Tablet PO ×2 (07:49→21:07)
[2021-12-26] MEDS: Carvedilol 25 MG Tablet PO ×2 (07:49→21:07)
[2021-12-26] MEDS: APIXABAN 5 MG TABLET PO ×2 (07:49→21:07)
[2021-12-26] MEDS: Arthritis Pain Compound 60 CLICK TUBE TOPICAL ×2 (07:50→21:06)
--- NOTE | 2021-12-26 09:26 | CASEMGMT ---
Addendum entered by Imani Traore 12/26/21 14:31: [facility] is able to accept pt. Updated . Addendum entered by Imani Traore 12/26/21 12:27: contacted this worker to follow up on insurance outcome. stated she called [facility] and was told there is not outcome yet, and they do not have a contract with [facility]. does not want pt to go to a SNF without a [facility] contract. is now agreeable to [facility]. Referral made. Updated [facility]. Original Note: Social Work Left message with [facility] to follow up on referral and [employer] contract. Still no outcome from insurance on RU stay. NICKI Scott
--- NOTE | 2021-12-26 11:58 | PCM.PN.BLA ---
Progress Note Afebrile VSS Maintaining appropriate oxygen saturation on RA Oral intake is good Discussed with nursing - He was incontinent of stool last night. remains incontinent of urine Reviewed the PT/OT/ST notes Medication list reviewed. The blood sugar record was reviewed. The blood sugar with supper yesterday was 140 but went up to 275 at at bedtime despite the increase in the supper lispro to 18 units. Fasting blood sugar this morning is 124. We are still waiting to hear from the insurance company whether he is to be discharged today, whether they will do a peer to peer IF he is discharged. Spoke with the SW and she has not heard from the SNF if Alcides will be accepted there.......she notified them yesterday after TEAM rounds. Physical Exam Const alert, oriented x3 and no apparent distress General Appearance: cooperative, well kempt and well developed Eyes conjunctivae normal and no scleral icterus Chest Chest: symmetrical chest wall rise Resp clear to auscultation bilaterally Effort and Inspection: able to speak in complete sentences Cardio Cardio Narrative: Irregular with controlled VR. No gallops. GI normal to inspection, nondistended, normoactive bowel sounds, soft to palpation and non-tender GI Narrative: No guarding with palpation. Extremity no calf tenderness and no pedal edema Extremity Narrative: Short left leg. We discussed possibly purchasing a heel lift. The R leg is also bowed. Skin General Skin Exam: no breakdown Rashes: no rashes Psych cooperative Appearance: grossly normal Attitude: calm Activity / Motor Behavior: other eye contact is improving Speech: minimal and other He answers questions appropriately but, does not initiate conversation. Mood & Affect: flat affect Thought Content: No suicidality, No homicidality, No delusion(s), No hallucination(s), No compulsion(s) and No obsession(s) Assessment & Plan Assessment/Plan (1) Acute right MCA stroke: PLAN: PLAN: Continue therapy Continue ASA 81 mg daily, Eliquis, Atorvastatin, Tricor His , Magaly, will come in prior to DC to decide if she will be able to safely manage /assist at home. If not then he will need to go to an SNF. I am hopeful that insurance will give Alcides some more time with us because he is young and is making good progress. It is my hope that with more time with intensive rehab he will be able to go home and not to an SNF. (2) Jhon-neglect of left side: PLAN: He is no longer running into doorways. Still having difficulty reading. Continue therapy. 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 He is eating well and has consistent carbohydrate intake. (5) CKD (chronic kidney disease), stage III: QUALIFIERS: Chronic kidney disease stage 3 subtype: stage 3b (GFR 30-44) Qualified Code(s): N18.32 - Chronic kidney disease, stage 3b PLAN: Alcides was taking Eliquis 2.5 mg BID due to the CRF but, he had a embolic stroke while on this dose and it has now been increased to 5 mg BID. It may be reasonable to get a Facto XI activity level prior to DC. Visit Charges Inpatient E&M: 33294 Subs Hosp L2
[2021-12-26] MEDS: Ascorbic Acid 500 MG Tablet 1000 MG PO (12:16)
[2021-12-26] MEDS: Ferrous Sulfate 325 MG Tablet PO (12:16)
[2021-12-26] MEDS: Insulin Lispro 100 UNIT/ML INSULN.PEN 12 UNIT SC (12:16)
[2021-12-26 12:25] LABS: Bedside Glucose 137 mg/dL (74-106)
[2021-12-26 15:52] VITALS: BMI 35.1
[2021-12-26 16:35] LABS: Bedside Glucose 177 mg/dL (74-106)
[2021-12-26 19:00] VITALS: BP 136/70; PULSE 62; RESP 17; TEMP 36.7; O2SAT 98
[2021-12-26] MEDS: Atorvastatin Calcium 80 MG Tablet PO (21:07)
[2021-12-26] MEDS: Insulin Glargine-YFGN 100 UNIT/ML Pen 25 UNIT SC (21:13)
[2021-12-26] MEDS: Insulin Lispro 100 UNIT/ML INSULN.PEN 18 UNIT SC (21:19)
[2021-12-26 22:05] LABS: Bedside Glucose 215 mg/dL (74-106)
[2021-12-26 23:50] VITALS: BMI 35.1
[2021-12-27 06:55] LABS: Bedside Glucose 111 mg/dL (74-106)
[2021-12-27] MEDS: Arthritis Pain Compound 60 CLICK TUBE TOPICAL ×3 (09:12→21:36)
[2021-12-27] MEDS: APIXABAN 5 MG TABLET PO ×2 (09:12→21:10)
[2021-12-27] MEDS: Carvedilol 25 MG Tablet PO ×2 (09:12→21:10)
[2021-12-27] MEDS: amLODIPine 10 MG Tablet PO (09:13)
[2021-12-27] MEDS: Furosemide 40 MG Tablet PO (09:13)
[2021-12-27] MEDS: Insulin Glargine-YFGN 100 UNIT/ML Pen 35 UNIT SC (09:13)
[2021-12-27] MEDS: Insulin Lispro 100 UNIT/ML INSULN.PEN 16 UNIT SC (09:13)
[2021-12-27] MEDS: Senna/Docusate Sodium 1 Tablet 2 TABLET PO (09:14)
[2021-12-27] MEDS: Fenofibrate 145 MG Tablet PO (09:14)
[2021-12-27] MEDS: Pantoprazole Sodium 20 MG Tablet PO ×2 (09:14→21:10)
[2021-12-27] MEDS: Sertraline 50 MG Tablet 25 MG PO (09:15)
[2021-12-27 09:31] LABS: Bedside Glucose 248 mg/dL (74-106)
[2021-12-27 10:00] VITALS: BP 159/80; PULSE 60; RESP 20; TEMP 36.6; O2SAT 97
[2021-12-27 11:10] LABS: Bedside Glucose 135 mg/dL (74-106)
[2021-12-27] MEDS: Insulin Lispro 100 UNIT/ML INSULN.PEN 12 UNIT SC (12:04)
[2021-12-27] MEDS: Ascorbic Acid 500 MG Tablet 1000 MG PO (12:04)
[2021-12-27] MEDS: Ferrous Sulfate 325 MG Tablet PO (12:04)
[2021-12-27 16:10] VITALS: BMI 35.1
[2021-12-27 16:25] LABS: Bedside Glucose 130 mg/dL (74-106)
[2021-12-27 19:00] VITALS: BP 133/67; PULSE 59; RESP 14; TEMP 36.4; O2SAT 97
[2021-12-27] MEDS: Atorvastatin Calcium 80 MG Tablet PO (21:10)
[2021-12-27] MEDS: Insulin Glargine-YFGN 100 UNIT/ML Pen 25 UNIT SC (21:29)
[2021-12-27] MEDS: Insulin Lispro 100 UNIT/ML INSULN.PEN 18 UNIT SC (21:30)
[2021-12-27 22:01] LABS: Bedside Glucose 290 mg/dL (74-106)
[2021-12-27 23:35] VITALS: BMI 35.1
[2021-12-28] MEDS: Arthritis Pain Compound 60 CLICK TUBE TOPICAL ×3 (06:52→21:20)
[2021-12-28 07:01] LABS: Bedside Glucose 137 mg/dL (74-106)
[2021-12-28 07:53] VITALS: BP 148/76; PULSE 57; RESP 16; TEMP 36.6; O2SAT 96
[2021-12-28] MEDS: Insulin Glargine-YFGN 100 UNIT/ML Pen 35 UNIT SC (07:54)
[2021-12-28] MEDS: Insulin Lispro 100 UNIT/ML INSULN.PEN 16 UNIT SC (07:54)
[2021-12-28] MEDS: Furosemide 40 MG Tablet PO (07:55)
[2021-12-28] MEDS: amLODIPine 10 MG Tablet PO (07:55)
[2021-12-28] MEDS: Carvedilol 25 MG Tablet PO ×2 (07:56→21:16)
[2021-12-28] MEDS: Fenofibrate 145 MG Tablet PO (07:56)
[2021-12-28] MEDS: Sertraline 50 MG Tablet 25 MG PO (07:56)
[2021-12-28] MEDS: APIXABAN 5 MG TABLET PO ×2 (07:56→21:16)
[2021-12-28] MEDS: Pantoprazole Sodium 20 MG Tablet PO ×2 (07:56→21:15)
[2021-12-28] MEDS: Senna/Docusate Sodium 1 Tablet 2 TABLET PO (07:56)
[2021-12-28 11:06] LABS: Bedside Glucose 105 mg/dL (74-106)
[2021-12-28] MEDS: Ascorbic Acid 500 MG Tablet 1000 MG PO (11:41)
[2021-12-28] MEDS: Ferrous Sulfate 325 MG Tablet PO (11:41)
[2021-12-28] MEDS: Insulin Lispro 100 UNIT/ML INSULN.PEN 12 UNIT SC (11:41)
[2021-12-28 14:16] VITALS: BMI 35.1
[2021-12-28 16:46] LABS: Bedside Glucose 90 mg/dL (74-106)
--- NOTE | 2021-12-28 18:59 | PCM.PROGNOTE ---
Subjective Subjective Afebrile VSS - diastolic is at goal. SYS is often mildly elevated still Maintaining appropriate oxygen saturation on RA Oral intake is good Discussed with nursing - no problems that need addressed Reviewed the PT/OT/ST notes Medication list reviewed. Blood sugar record was reviewed. Blood sugars at at bedtime are still high. Supper is his largest meal of the day. Alcides denies CP, SOB, palpitations, lightheadedness, dysuria, N/V/abd cramping, calf pain. He has no complaints today. Objective Data Objective Data Vital Signs: Vital Signs Temp Pulse Resp BP Pulse Ox 97.8 F 57 L 16 148/76 H 96 12/28/21 07:53 12/28/21 07:53 12/28/21 07:53 12/28/21 07:53 12/28/21 07:53 Oxygen Delivery Method Room Air Weight: 221 lb 5.506 oz Body Mass Index (BMI) 35.1 Intake & Output: Intake and Output for Last 24 Hours 12/26/21 12/27/21 12/28/21 23:59 23:59 23:59 Intake Total 1680 / 1680 2120 / 2120 1550 / 1550 Output Total 2200 / 2200 550 / 800 1825 / 1825 Balance -520 / -520 1570 / 1320 -275 / -275 Lab / Micro Data Result Diagrams: 12/22/21 06:10 12/22/21 06:10 Labs: Laboratory Results - last 24 hr 12/27/21 21:02: POC Glucose 290 H 12/28/21 06:50: POC Glucose 137 H 12/28/21 11:02: POC Glucose 105 12/28/21 16:39: POC Glucose 90 Micro: Microbiology 12/16/21 20:40 Stool Stool Occult Blood (SAUD) - Final Occult Blood Positive Physical Exam Const alert, oriented x3 and no apparent distress General Appearance: cooperative and comfortable Resp normal respiratory effort, normal air movement and clear to auscultation bilaterally Effort and Inspection: able to speak in complete sentences Cardio regular rate, regular rhythm and no gallops GI normal to inspection, nondistended, normoactive bowel sounds, soft to palpation and non-tender Bladder / Kidney Exam: other still incontinent of urine. Extremity no calf tenderness and no pedal edema Skin General Skin Exam: no breakdown Rashes: no rashes Psych Mood & Affect: flat affect Assessment & Plan Assessment/Plan (1) Cerebral artery occlusion with cerebral infarction: PLAN: Continue therapy. He is making good progress and I fell if we could just keep him another week he would be able to go home rather than to an SNF. His will be coming in tomorrow for family training. (2) Acute right MCA stroke: PLAN: Continue Eliquis 5 mg p.o. twice daily, ASA 81 mg daily and atorvastatin 80 mg nightly. (3) Diabetes mellitus type 1.5, managed as type 1: PLAN: Decrease the HS Lantus to 20 units. Increase the Lispro with supper to 20 units. Continue to monitor the BS's AC and HS. Charges/Coding Visit Charges Inpatient E&M: 51971 Subs Hosp L2
[2021-12-28 19:14] VITALS: BP 132/71; PULSE 64; RESP 17; TEMP 36.4; O2SAT 97
[2021-12-28] MEDS: Atorvastatin Calcium 80 MG Tablet PO (21:15)
[2021-12-28] MEDS: Insulin Lispro 100 UNIT/ML INSULN.PEN 22 UNIT SC (21:15)
[2021-12-28] MEDS: Insulin Glargine-YFGN 100 UNIT/ML Pen 20 UNIT SC (21:18)
[2021-12-28 21:40] LABS: Bedside Glucose 138 mg/dL (74-106)
[2021-12-29 04:46] LABS: Bedside Glucose 113 mg/dL (74-106)
[2021-12-29] MEDS: Arthritis Pain Compound 60 CLICK TUBE TOPICAL ×3 (06:30→21:42)
[2021-12-29 06:46] LABS: Bedside Glucose 126 mg/dL (74-106)
[2021-12-29 07:25] VITALS: BP 137/68; PULSE 63; RESP 20; TEMP 36.3; O2SAT 98
[2021-12-29] MEDS: Carvedilol 25 MG Tablet PO ×2 (08:27→21:42)
[2021-12-29] MEDS: Aspirin 81 MG TAB.CHEW PO (08:27)
[2021-12-29] MEDS: Insulin Lispro 100 UNIT/ML INSULN.PEN 14 UNIT SC (08:28)
[2021-12-29] MEDS: APIXABAN 5 MG TABLET PO ×2 (08:28→21:41)
[2021-12-29] MEDS: Insulin Glargine-YFGN 100 UNIT/ML Pen 35 UNIT SC (08:28)
[2021-12-29] MEDS: Pantoprazole Sodium 20 MG Tablet PO ×2 (08:29→21:41)
[2021-12-29] MEDS: Furosemide 40 MG Tablet PO (08:29)
[2021-12-29] MEDS: Sertraline 50 MG Tablet 25 MG PO (08:29)
[2021-12-29] MEDS: amLODIPine 10 MG Tablet PO (08:29)
[2021-12-29] MEDS: Fenofibrate 145 MG Tablet PO (08:29)
[2021-12-29 11:11] LABS: Bedside Glucose 183 mg/dL (74-106)
[2021-12-29] MEDS: Ascorbic Acid 500 MG Tablet 1000 MG PO (12:46)
[2021-12-29] MEDS: Ferrous Sulfate 325 MG Tablet PO (12:46)
[2021-12-29] MEDS: Insulin Lispro 100 UNIT/ML INSULN.PEN 12 UNIT SC (12:46)
[2021-12-29 16:04] VITALS: BMI 35.1
[2021-12-29 16:11] LABS: Bedside Glucose 273 mg/dL (74-106)
[2021-12-29 19:28] VITALS: BP 130/67; PULSE 67; RESP 18; TEMP 36.8; O2SAT 96
[2021-12-29] MEDS: Senna/Docusate Sodium 1 Tablet 2 TABLET PO (21:40)
[2021-12-29] MEDS: Insulin Lispro 100 UNIT/ML INSULN.PEN 22 UNIT SC (21:41)
[2021-12-29] MEDS: Atorvastatin Calcium 80 MG Tablet PO (21:41)
[2021-12-29] MEDS: Insulin Glargine-YFGN 100 UNIT/ML Pen 20 UNIT SC (21:43)
[2021-12-29 21:55] LABS: Bedside Glucose 303 mg/dL (74-106)
[2021-12-30 05:00] VITALS: BMI 35.1
[2021-12-30 06:40] LABS: Bedside Glucose 110 mg/dL (74-106)
[2021-12-30] MEDS: Arthritis Pain Compound 60 CLICK TUBE TOPICAL ×3 (06:45→20:47)
[2021-12-30] MEDS: Aspirin 81 MG TAB.CHEW PO (08:36)
[2021-12-30] MEDS: APIXABAN 5 MG TABLET PO ×2 (08:37→20:46)
[2021-12-30] MEDS: Carvedilol 25 MG Tablet PO ×2 (08:37→20:46)
[2021-12-30] MEDS: Pantoprazole Sodium 20 MG Tablet PO ×2 (08:38→20:46)
[2021-12-30] MEDS: amLODIPine 10 MG Tablet PO (08:38)
[2021-12-30] MEDS: Furosemide 40 MG Tablet PO (08:38)
[2021-12-30] MEDS: Fenofibrate 145 MG Tablet PO (08:39)
[2021-12-30] MEDS: Sertraline 50 MG Tablet 25 MG PO (08:40)
[2021-12-30] MEDS: Insulin Lispro 100 UNIT/ML INSULN.PEN 14 UNIT SC (08:44)
[2021-12-30] MEDS: Insulin Glargine-YFGN 100 UNIT/ML Pen 35 UNIT SC (08:45)
[2021-12-30 10:00] VITALS: BP 133/65; PULSE 63; RESP 16; TEMP 36.8; O2SAT 95
[2021-12-30 11:20] LABS: Bedside Glucose 116 mg/dL (74-106)
[2021-12-30] MEDS: Ferrous Sulfate 325 MG Tablet PO (12:12)
[2021-12-30] MEDS: Ascorbic Acid 500 MG Tablet 1000 MG PO (12:13)
[2021-12-30] MEDS: Insulin Lispro 100 UNIT/ML INSULN.PEN 12 UNIT SC (12:15)
[2021-12-30 15:24] VITALS: BP 147/71; PULSE 84; RESP 14; TEMP 36.6; O2SAT 96
[2021-12-30 15:44] VITALS: BMI 35.1
[2021-12-30 18:06] LABS: Bedside Glucose 192 mg/dL (74-106)
[2021-12-30 19:41] VITALS: BP 146/69; PULSE 61; RESP 14; TEMP 36.6; O2SAT 96
[2021-12-30] MEDS: Insulin Glargine-YFGN 100 UNIT/ML Pen 20 UNIT SC (20:43)
[2021-12-30] MEDS: Insulin Lispro 100 UNIT/ML INSULN.PEN 22 UNIT SC (20:44)
[2021-12-30] MEDS: Acetaminophen 325 MG Tablet 650 MG PO (20:45)
[2021-12-30] MEDS: Atorvastatin Calcium 80 MG Tablet PO (20:46)
[2021-12-30] MEDS: Senna/Docusate Sodium 1 Tablet 2 TABLET PO (20:47)
[2021-12-30 21:11] VITALS: BMI 35.1
[2021-12-30 22:05] LABS: Bedside Glucose 208 mg/dL (74-106)
[2021-12-31] MEDS: Acetaminophen 325 MG Tablet 650 MG PO (05:56)
[2021-12-31] MEDS: Arthritis Pain Compound 60 CLICK TUBE TOPICAL ×2 (05:56→20:56)
[2021-12-31 06:20] LABS: Bedside Glucose 129 mg/dL (74-106)
[2021-12-31] MEDS: Pantoprazole Sodium 20 MG Tablet PO ×2 (07:55→20:56)
[2021-12-31] MEDS: Aspirin 81 MG TAB.CHEW PO (07:55)
[2021-12-31] MEDS: Carvedilol 25 MG Tablet PO ×2 (07:56→20:56)
[2021-12-31] MEDS: APIXABAN 5 MG TABLET PO ×2 (07:56→20:56)
[2021-12-31] MEDS: Sertraline 50 MG Tablet 25 MG PO (07:56)
[2021-12-31] MEDS: Furosemide 40 MG Tablet PO (07:57)
[2021-12-31] MEDS: Fenofibrate 145 MG Tablet PO (07:58)
[2021-12-31] MEDS: amLODIPine 10 MG Tablet PO (07:58)
[2021-12-31] MEDS: Insulin Lispro 100 UNIT/ML INSULN.PEN 14 UNIT SC (07:58)
[2021-12-31] MEDS: Insulin Glargine-YFGN 100 UNIT/ML Pen 35 UNIT SC (07:59)
[2021-12-31 08:00] VITALS: BP 135/66; PULSE 55; RESP 16; TEMP 36.7; O2SAT 98
[2021-12-31] MEDS: Insulin Lispro 100 UNIT/ML INSULN.PEN 12 UNIT SC (11:55)
[2021-12-31] MEDS: Ferrous Sulfate 325 MG Tablet PO (11:55)
[2021-12-31] MEDS: Ascorbic Acid 500 MG Tablet 1000 MG PO (11:55)
[2021-12-31 12:05] LABS: Bedside Glucose 171 mg/dL (74-106)
[2021-12-31 15:16] VITALS: BMI 35.1
[2021-12-31 17:11] LABS: Bedside Glucose 125 mg/dL (74-106)
[2021-12-31 20:50] VITALS: BP 124/72; PULSE 77; RESP 16; TEMP 36.1; O2SAT 98; BMI 35.1
[2021-12-31] MEDS: Atorvastatin Calcium 80 MG Tablet PO (20:56)
[2021-12-31] MEDS: Insulin Lispro 100 UNIT/ML INSULN.PEN 22 UNIT SC (21:00)
[2021-12-31] MEDS: Insulin Glargine-YFGN 100 UNIT/ML Pen 20 UNIT SC (21:01)
[2021-12-31 21:26] LABS: Bedside Glucose 192 mg/dL (74-106)
--- NOTE | 2022-01-01 00:10 | NURSING ---
Reviewed and agree with DRAFTING ENGINEER assessment.
[2022-01-01] MEDS: Arthritis Pain Compound 60 CLICK TUBE TOPICAL ×3 (06:38→20:01)
[2022-01-01 06:40] LABS: Bedside Glucose 135 mg/dL (74-106)
[2022-01-01 07:15] VITALS: BP 137/68; PULSE 64; RESP 18; TEMP 36.7; O2SAT 97
[2022-01-01] MEDS: Senna/Docusate Sodium 1 Tablet 2 TABLET PO (07:20)
[2022-01-01] MEDS: APIXABAN 5 MG TABLET PO ×2 (07:20→20:02)
[2022-01-01] MEDS: Aspirin 81 MG TAB.CHEW PO (07:20)
[2022-01-01] MEDS: Fenofibrate 145 MG Tablet PO (07:21)
[2022-01-01] MEDS: Sertraline 50 MG Tablet 25 MG PO (07:21)
[2022-01-01] MEDS: Furosemide 40 MG Tablet PO (07:21)
[2022-01-01] MEDS: amLODIPine 10 MG Tablet PO (07:21)
[2022-01-01] MEDS: Carvedilol 25 MG Tablet PO ×2 (07:21→20:02)
[2022-01-01] MEDS: Pantoprazole Sodium 20 MG Tablet PO ×2 (07:21→20:02)
[2022-01-01] MEDS: Insulin Lispro 100 UNIT/ML INSULN.PEN 14 UNIT SC (07:23)
[2022-01-01] MEDS: Insulin Glargine-YFGN 100 UNIT/ML Pen 35 UNIT SC (07:24)
--- NOTE | 2022-01-01 09:15 | PN_ITS ---
Subjective Subjective Alcides was seen on TEAM rounds today and his Magaly was present in the room. Afebrile VSS Maintaining appropriate oxygen saturation on RA Oral intake is good Discussed with nursing - no problems that need addressed. Reviewed the PT/OT/ST notes Medication list reviewed. Blood sugars were reviewed. HS sugar is still on the high side. He is being given the Glargine and the Lispro at HS rather than giving the Lispro with supper? No hypoglycemia. He has the heel lift to try in the R shoe today. He stated it helped with his stability walking and his pace was better today. He felt less tired after wa lking the floor today. He denies CP, Calf pain, SOB, N/V/abd cramping/diarrhea, lightheadedness. He has urgency with urination. He has dysuria but, only when he starts to urinate. A urine was checked at admission and he had no bacteria and only 0-5 WBC's. He tells me that he does not feel he is ready to DC today but, in another 5-7 days he thinks he will be able to go home. His did family training last week with him and he did much better than she thought he would and she thinks she will be able to care for him at home with a little extra intense therapy on acute rehab. I went back and saw Alcides again at the end of the day and his knee and back are less painful than usual since he has been wearing the heel lift today. Vision is getting better and he is better able to read now and is doing a good job with scanning. Objective Data Objective Data Vital Signs: Vital Signs Temp Pulse Resp BP Pulse Ox 98.1 F 64 18 137/68 H 97 01/01/22 07:15 01/01/22 07:15 01/01/22 07:15 01/01/22 07:15 01/01/22 07:15 Oxygen Delivery Method Room Air Weight: 219 lb 5.759 oz Body Mass Index (BMI) 35.1 Intake & Output: Intake and Output for Last 24 Hours 12/30/21 12/31/21 01/01/22 23:59 23:59 23:59 Intake Total 2340 / 2340 1720 / 1720 1260 / 1260 Output Total 2049 / 2049 2725 / 2725 875 / 875 Balance 290 / 290 -1005 / -1005 385 / 385 Lab / Micro Data Result Diagrams: 12/22/21 06:10 12/22/21 06:10 Labs: Laboratory Results - last 24 hr 12/31/21 11:55: POC Glucose 171 H 12/31/21 17:05: POC Glucose 125 H 12/31/21 21:00: POC Glucose 192 H 01/01/22 06:29: POC Glucose 135 H Micro: Microbiology 12/16/21 20:40 Stool Stool Occult Blood (SAUD) - Final Occult Blood Positive Physical Exam Const alert, oriented x3 and no apparent distress Constitutional Narrative: He has good color in his face today. Making good eye contact off and on.......if we are talking about something he does not want to hear he won't look at me. More verbal today......erick about going home at discharge and not to an SNF. General Appearance: cooperative, well kempt and well developed Eyes PERRL and EOMs intact bilaterally Eyes Narrative: He now has L homonymous quadrantanopsia in the upper quadrants....at admission he had left homonymous hemianopsia General Eye: normal appearance of both eyes Resp normal respiratory effort, normal air movement and clear to auscultation bilaterally Effort and Inspection: able to speak in complete sentences Cardio regular rate, regular rhythm and no gallops GI normal to inspection, nondistended, normoactive bowel sounds, soft to palpation and non-tender Extremity no calf tenderness and no pedal edema Extremity Narrative: He tells me that he had increased swelling in the R ankle and knee yesterday. He is sitting in the recliner with the legs elevated and his R leg on a pillow. Skin Skin Narrative: stasis dermatitis has improved with compression and mois turizing. General Skin Exam: no breakdown Rashes: no rashes Psych cooperative, speech normal, denies hallucinations, denies homicidal ideation and denies suicidal ideation Appearance: appropriate Activity / Motor Behavior: avoids eye contact Assessment & Plan Assessment/Plan (1) Cerebral artery occlusion with cerebral infarction: PLAN: Continue therapy Continue ASA 81 mg daily, Eliquis, Atorvastatin, Tricor (2) Acute right MCA stroke: PLAN: Embolic stroke while on Eliquis 2.5 mg BID. Will continue the current dose of 5 mg BID. (3) Diabetes mellitus type 1.5, managed as type 1: PLAN: DC the Lispro being given at HS and give 20 units with supper instead. Continue the same dose of the Glargine at HS and give 40 units in the AM Continue AC and HS blood sugars. With his hx of prior stroke I would like the fastings below 130 and ALL blood sugars Less than 180. Goal for the HGBA1C is < 7. (4) Depression: PLAN: His mood has improved. He is sleeping well. He has more facial expression. Affect is still flat. No adverse reactions to Sertraline. Will increase the dose to 50 mg daily. Alcides denies being depressed prior to the stroke but, when I asked him what he thought the sx of depression were he could not even name one. We discussed the sx and at the end of our discussion he agreed he has been depressed. He is still not consistently making eye contact......erick if I say something he does not want to hear. He was more talkative with me today after I pointed out the sx he has been having due to depression.......he agreed he has many of the sx and also agreed he has been irritable and snappy with Magaly recently. (5) Left homonymous superior quadrantanopia: PLAN: this is better......he had left homonymous hemianopia at admission. Charges/Coding Visit Charges Inpatient E&M: 86903 Subs Hosp L2
[2022-01-01 11:00] LABS: Bedside Glucose 126 mg/dL (74-106)
[2022-01-01] MEDS: Insulin Lispro 100 UNIT/ML INSULN.PEN 12 UNIT SC (12:12)
[2022-01-01] MEDS: Ascorbic Acid 500 MG Tablet 1000 MG PO (12:12)
[2022-01-01] MEDS: Ferrous Sulfate 325 MG Tablet PO (12:12)
--- NOTE | 2022-01-01 13:46 | CASEMGMT ---
Social Work IDT met with patient for Team meeting. Discussed patient's progress in PT/OT/ST and nursing. Pt making progress. IDT, pt/ would like another week in RU to improve then will feel comfortable taking pt home as he continues to progress. Explained insurance update is today and continued stay is not guaranteed. SW to order HHC and DME if DCing home. Otherwise, [facility] is able to accept pt, and informed with CC now has contract with [facility] if she would like him to go there. appreciative of information. SW to continue to follow. Imani Traore, SHAREPOINT ARCHITECT PRINTED CIRCUIT BOARDS INSPECTOR
[2022-01-01 14:06] VITALS: BMI 35.1
[2022-01-01 16:11] LABS: Bedside Glucose 105 mg/dL (74-106)
[2022-01-01] MEDS: Insulin Lispro 100 UNIT/ML INSULN.PEN 20 UNIT SC (17:15)
[2022-01-01 19:11] VITALS: BP 131/68; PULSE 67; RESP 18; TEMP 36.6; O2SAT 96
[2022-01-01 19:50] VITALS: PULSE 67; RESP 18; O2SAT 96; BMI 35.1
[2022-01-01] MEDS: Acetaminophen 325 MG Tablet 650 MG PO (20:02)
[2022-01-01] MEDS: Atorvastatin Calcium 80 MG Tablet PO (20:03)
[2022-01-01] MEDS: Insulin Glargine-YFGN 100 UNIT/ML Pen 20 UNIT SC (20:10)
[2022-01-01 22:30] LABS: Bedside Glucose 148 mg/dL (74-106)
--- NOTE | 2022-01-02 01:00 | NURSING ---
Reviewed and agree with BUILDING GUARD DEPUTY SHERIFF documentation and assessment charting.
[2022-01-02 05:41] LABS: Hematocrit 28.9 % (40-54); Hemoglobin 9.5 g/dL (13.0-16.5); Mean Corp Hgb Conc 32.9 g/dL (32-36); Mean Corpuscular Hgb 29.7 pg (27.0-32.0); Mean Corpuscular Volume 90.3 fL (80-94); Mean Platelet Vol. 10.6 fl (6.2-12.0); Platelet Count 247 K/mm3 (150-450); RBC Distribution Width CV 12.7 % (11.6-14.6); RBC Distribution Width SD 41.7 fl (35.1-43.9); White Blood Count 5.4 K/mm3 (4.4-11.0)
[2022-01-02] MEDS: Acetaminophen 325 MG Tablet 650 MG PO ×2 (05:47→20:17)
[2022-01-02] MEDS: Arthritis Pain Compound 60 CLICK TUBE TOPICAL ×2 (05:49→20:44)
[2022-01-02 06:27] LABS: Albumin, Serum 3.2 g/dL (3.2-5.0); BUN 44 mg/dL (7-18); BUN/Creat Ratio 19.5 RATIO (10-20); Calcium,Total 9.7 mg/dL (8.5-10.1); Chloride 104 mmol/L (98-107); Creatinine, Serum 2.26 mg/dL (0.70-1.30); EST Glomerular Filtration Rate 31 mL/min (>60); Est Glom Filt Rate - Afr Amer 37 mL/min (>60); Estimated Creatinine Clearance 29.98 ml/min; Glucose 96 mg/dL (74-106); Phosphorus 3.8 mg/dL (2.5-4.9); Potassium 3.7 mmol/L (3.5-5.1); Sodium Level 138 mmol/L (136-145)
[2022-01-02 06:56] LABS: Bedside Glucose 107 mg/dL (74-106)
[2022-01-02 07:15] VITALS: BP 134/65; PULSE 56; RESP 17; TEMP 36.4; O2SAT 96
[2022-01-02] MEDS: Insulin Glargine-YFGN 100 UNIT/ML Pen 40 UNIT SC (07:55)
[2022-01-02] MEDS: Aspirin 81 MG TAB.CHEW PO (07:56)
[2022-01-02] MEDS: Insulin Lispro 100 UNIT/ML INSULN.PEN 14 UNIT SC (07:56)
[2022-01-02] MEDS: Pantoprazole Sodium 20 MG Tablet PO ×2 (07:57→20:43)
[2022-01-02] MEDS: Furosemide 40 MG Tablet PO (07:57)
[2022-01-02] MEDS: APIXABAN 5 MG TABLET PO ×2 (07:57→20:43)
[2022-01-02] MEDS: amLODIPine 10 MG Tablet PO (07:57)
[2022-01-02] MEDS: Fenofibrate 145 MG Tablet PO (07:57)
[2022-01-02] MEDS: Lisinopril 2.5 MG Tablet PO (07:57)
[2022-01-02] MEDS: Carvedilol 25 MG Tablet PO ×2 (07:57→20:44)
[2022-01-02] MEDS: Sertraline 50 MG Tablet PO (07:57)
--- NOTE | 2022-01-02 09:35 | PN_ITS ---
Subjective Subjective Afebrile VSS Maintaining appropriate oxygen saturation on RA Oral intake is good Discussed with nursing - no problems that need addressed Reviewed the PT/OT/ST notes Medication list reviewed. Lisinopril 2.5 mg daily will start today to get the systolic consistently less than 130. The diastolic is already at goal. Blood sugar record was reviewed. Blood sugar at at bedtime was 126 last night after changing the lispro to prior to supper rather than bedtime. FBS is 107 today. No hypoglycemia. Continue to monitor AC and HS for 2 more days and if no hypoglycemia will decrease the accuchecks to BID. All lab was personally reviewed. The white blood cell count is normal at 5.4. Hemoglobin is stable at 9.5 with normochromic normocytic indices and a normal RDW. Platelets are within normal limits. Is normal at 138 and the potassium is 3.7 with a serum bicarb of 26. The BUN is 44 and the creatinine is 2.26 which is more in line with what he has been for the past 6 months. Phosphorus and magnesium are within normal limits. FActor XI activity is pending and likely will not be back for 5-7 days. Objective Data Objective Data Vital Signs: Vital Signs Temp Pulse Resp BP Pulse Ox 97.5 F L 56 L 17 134/65 H 96 01/02/22 07:15 01/02/22 07:15 01/02/22 07:15 01/02/22 07:15 01/02/22 07:15 Oxygen Delivery Method Room Air Weight: 218 lb 7.649 oz Body Mass Index (BMI) 35.1 Intake & Output: Intake and Output for Last 24 Hours 12/31/21 01/01/22 01/02/22 23:59 23:59 23:59 Intake Total 1720 / 1720 2740 / 2740 1160 / 1160 Output Total 2725 / 2725 2350 / 2350 1425 / 1425 Balance -1005 / -1005 390 / 390 -265 / -265 Lab / Micro Data Result Diagrams: 01/02/22 05:35 01/02/22 05:35 Labs: Laboratory Results - last 24 hr 01/01/22 10:57: POC Glucose 126 H 01/01/22 16:06: POC Glucose 105 01/01/22 20:08: POC Glucose 148 H 01/02/22 05:35: WBC 5.4, RBC 3.20 L, Hgb 9.5 L, Hct 28.9 L, MCV 90.3, MCH 29.7, MCHC 32.9, RDW Std Deviation 41.7, RDW Coeff of Whitney 12.7, Plt Count 247, MPV 10.6 01/02/22 05:35: Sodium 138, Potassium 3.7, Chloride 104, Carbon Dioxide 26.0, BUN 44 H, Creatinine 2.26 H, Estim Creat Clear Calc 29.98, Est GFR (MDRD) Af Amer 37 L, Est GFR (MDRD) Non-Af 31 L, BUN/Creatinine Ratio 19.5, Glucose 96, C alcium 9.7, Phosphorus 3.8, Magnesium 2.0, Albumin 3.2 01/02/22 06:17: POC Glucose 107 H Micro: Microbiology 12/16/21 20:40 Stool Stool Occult Blood (SAUD) - Final Occult Blood Positive Physical Exam Const alert and oriented x3 Eyes conjunctivae normal and no scleral icterus Resp clear to auscultation bilaterally Effort and Inspection: able to speak in complete sentences Cardio no gallops Cardio Narrative: Irregular irregular with controlled ventricular response. GI normal to inspection, nondistended, normoactive bowel sounds, soft to palpation and non-tender GI Narrative: No guarding with palpation Extremity no calf tenderness and no pedal edema Skin Rashes: no rashes Psych Psych Narrative: much more talkative and outgoing than at admission. Assessment & Plan Assessment/Plan (1) Cerebral artery occlusion with cerebral infarction: PLAN: continue PT/OT/ST. I anticipate that he will be ready to be discharged home in another 5-7 days. His is getting more comfortable with her ability to safely care for him at home. he has been working hard and is making progress. (2) Acute right MCA stroke: PLAN: Educated him once again on the goals for treating hyperlipidemia, hypertension and diabetes mellitus to prevent another stroke. We also discussed that he was on a low-dose of Eliquis because of his kidney dysfunction and it likely was not therapeutic. He will remain on 5 mg twice daily at discharge. (3) Left homonymous superior quadrantanopia: PLAN: He is more aware of this now and has been working hard on learning to scan and compensate for this. (4) Depression: PLAN: He is much better than at admission and tolerating the antidepressant without any adverse side effects. (5) Cognitive dysfunction: PLAN: Still a problem. You would not pick this up just talking with him but, will need aggressive ST as an OP. (6) Left homonymous hemianopsia due to recent cerebral infarction: (7) Diabetes mellitus type 1.5, managed as type 1: PLAN: Good control. Charges/Coding Visit Charges Inpatient E&M: 61265 Subs Hosp L2
[2022-01-02 11:05] LABS: Bedside Glucose 133 mg/dL (74-106)
[2022-01-02] MEDS: Ascorbic Acid 500 MG Tablet 1000 MG PO (12:01)
[2022-01-02] MEDS: Ferrous Sulfate 325 MG Tablet PO (12:01)
[2022-01-02] MEDS: Insulin Lispro 100 UNIT/ML INSULN.PEN 12 UNIT SC (12:01)
[2022-01-02 14:00] VITALS: BP 133/64
[2022-01-02 14:11] VITALS: BMI 35.1
[2022-01-02 16:10] LABS: Bedside Glucose 125 mg/dL (74-106)
[2022-01-02] MEDS: Insulin Lispro 100 UNIT/ML INSULN.PEN 20 UNIT SC (17:01)
[2022-01-02 17:51] VITALS: BP 130/65; PULSE 60; RESP 18; TEMP 36.6; O2SAT 94
[2022-01-02 20:11] LABS: Factor XI Activity 147 % (60-150)
[2022-01-02] MEDS: Insulin Glargine-YFGN 100 UNIT/ML Pen 20 UNIT SC (20:39)
[2022-01-02] MEDS: Atorvastatin Calcium 80 MG Tablet PO (20:43)
[2022-01-02 20:53] VITALS: BMI 35.1
[2022-01-02 21:31] LABS: Bedside Glucose 170 mg/dL (74-106)
[2022-01-02 22:00] VITALS: BP 123/84; PULSE 58; RESP 16; RESP 17; TEMP 36.6; O2SAT 98
[2022-01-03] VITALS (7 sets, daily range): BP systolic 120–133; BP diastolic 64–78; PULSE 59–64; RESP 16–18; TEMP 36.2–36.8; O2SAT 97–100; BMI 35.1
[2022-01-03] MEDS: Arthritis Pain Compound 60 CLICK TUBE TOPICAL ×3 (05:38→20:46)
[2022-01-03 06:45] LABS: Bedside Glucose 101 mg/dL (74-106)
[2022-01-03] MEDS: Insulin Glargine-YFGN 100 UNIT/ML Pen 40 UNIT SC (08:16)
[2022-01-03] MEDS: Insulin Lispro 100 UNIT/ML INSULN.PEN 14 UNIT SC (08:17)
[2022-01-03] MEDS: Senna/Docusate Sodium 1 Tablet 2 TABLET PO ×2 (08:17→20:49)
[2022-01-03] MEDS: Lisinopril 2.5 MG Tablet PO (08:17)
[2022-01-03] MEDS: Pantoprazole Sodium 20 MG Tablet PO ×2 (08:18→20:49)
[2022-01-03] MEDS: Carvedilol 25 MG Tablet PO ×2 (08:18→20:48)
[2022-01-03] MEDS: Sertraline 50 MG Tablet PO (08:18)
[2022-01-03] MEDS: amLODIPine 10 MG Tablet PO (08:18)
[2022-01-03] MEDS: Furosemide 40 MG Tablet PO (08:18)
[2022-01-03] MEDS: APIXABAN 5 MG TABLET PO ×2 (08:18→20:48)
[2022-01-03] MEDS: Fenofibrate 145 MG Tablet PO (08:18)
[2022-01-03] MEDS: Aspirin 81 MG TAB.CHEW PO (08:18)
[2022-01-03 11:05] LABS: Bedside Glucose 102 mg/dL (74-106)
[2022-01-03] MEDS: Ferrous Sulfate 325 MG Tablet PO (11:56)
[2022-01-03] MEDS: Insulin Lispro 100 UNIT/ML INSULN.PEN 12 UNIT SC (11:56)
[2022-01-03] MEDS: Ascorbic Acid 500 MG Tablet 1000 MG PO (11:56)
[2022-01-03 16:11] LABS: Bedside Glucose 111 mg/dL (74-106)
[2022-01-03] MEDS: Insulin Lispro 100 UNIT/ML INSULN.PEN 20 UNIT SC (17:10)
[2022-01-03] MEDS: Insulin Glargine-YFGN 100 UNIT/ML Pen 20 UNIT SC (20:45)
[2022-01-03] MEDS: Atorvastatin Calcium 80 MG Tablet PO (20:48)
[2022-01-03 21:21] LABS: Bedside Glucose 121 mg/dL (74-106)
[2022-01-04] MEDS: Acetaminophen 325 MG Tablet 650 MG PO (04:53)
[2022-01-04] MEDS: Arthritis Pain Compound 60 CLICK TUBE TOPICAL ×3 (05:02→21:59)
[2022-01-04 07:00] LABS: Bedside Glucose 84 mg/dL (74-106)
[2022-01-04 07:40] VITALS: BP 147/73; PULSE 55; RESP 16; TEMP 36.3; O2SAT 98
[2022-01-04] MEDS: Sertraline 50 MG Tablet PO (07:41)
[2022-01-04] MEDS: Furosemide 40 MG Tablet PO (07:41)
[2022-01-04] MEDS: Lisinopril 2.5 MG Tablet PO (07:41)
[2022-01-04] MEDS: Carvedilol 25 MG Tablet PO ×2 (07:41→22:00)
[2022-01-04] MEDS: Aspirin 81 MG TAB.CHEW PO (07:41)
[2022-01-04] MEDS: amLODIPine 10 MG Tablet PO (07:41)
[2022-01-04] MEDS: Pantoprazole Sodium 20 MG Tablet PO ×2 (07:41→22:00)
[2022-01-04] MEDS: Insulin Lispro 100 UNIT/ML INSULN.PEN 14 UNIT SC (07:42)
[2022-01-04] MEDS: Senna/Docusate Sodium 1 Tablet 2 TABLET PO (07:42)
[2022-01-04] MEDS: Fenofibrate 145 MG Tablet PO (07:42)
[2022-01-04] MEDS: APIXABAN 5 MG TABLET PO ×2 (07:42→22:00)
[2022-01-04] MEDS: Insulin Glargine-YFGN 100 UNIT/ML Pen 40 UNIT SC (07:44)
[2022-01-04 07:47] VITALS: BP 107/66; PULSE 59
[2022-01-04 09:24] VITALS: PULSE 59; RESP 16; O2SAT 98
[2022-01-04 09:30] VITALS: BMI 35.1
[2022-01-04] MEDS: Ascorbic Acid 500 MG Tablet 1000 MG PO (11:57)
[2022-01-04] MEDS: Ferrous Sulfate 325 MG Tablet PO (11:57)
--- NOTE | 2022-01-04 12:00 | NURSING ---
B.S. 40, rechecked and was 34, Dr. Gaitan notified, no new orders. [place] juice given and lunch just arrived. Will continue to monitor.
--- NOTE | 2022-01-04 12:30 | PN_ITS ---
Subjective Subjective Afebrile VSS-blood pressure is 107/66 this morning with a heart rate of 59. He denies lightheadedness. Maintaining appropriate oxygen saturation on RA Oral intake is good Discussed with nursing - no problems that need addressed. He reported last night that he has occasional cramping in the RUE. He was actually chatty with the night nurse last night. He had some back pain at about 0530 this AM. Reviewed the PT/OT/ST notes. He is ambulating up to 250 feet with a wheeled walker and a right heel lift in his shoe. He is able to take longer strides now and is keeping within the walker base so he is more stable. No longer needing the slipper sock. He is standby assist to stand and pivot on various surfaces now. He is also able to ascend/descend 5 steps of various heights with 2 handrails at contact-guard assist and a step to pattern. He is standby assist/supervision for eating, grooming, upper body dressing. He requires minimal assistance with lower body dressing, moderate assistance with toilet transfer and contact-guard assist for tub/shower chair. Medication list reviewed. BS record was reviewed. FBS today is 84 but, the BS prior to lunch was in the 40's....he was asymptomatic and he has been given his lunch. THE HS sugar last night was 121. Alcides tells me that he is having less back pain and less pain in his knees with the heel lift in his shoe. He denies chest pain, shortness of breath, cough, lightheadedness, nausea/vomiting, abdominal pain, cephalgia, vertigo. He did tell one of the therapists that he had trouble sleeping las night until he took his shirt off because he was too hot. He also felt as though he had to urinate this AM and stood at the toilet for 5 minutes but could not go. He c/o burning with the first few drops of urine but, he has had this complaint since admission and the UA was negative. He has been continent during the day with regular trips to the instituted. Tells me that he has a hard time getting started and the stream is slower than normal. He tells me he is sleeping well at night other than when he wakes up with back pain in the hatchery worker. Objective Data Objective Data Vital Signs: Vital Signs Temp Pulse Resp BP Pulse Ox 97.4 F L 59 L 16 107/66 98 01/04/22 07:40 01/04/22 09:24 01/04/22 09:24 01/04/22 07:47 01/04/22 09:24 Oxygen Delivery Method Room Air Weight: 220 lb 0.341 oz Body Mass Index (BMI) 35.1 Intake & Output: Intake and Output for Last 24 Hours 01/02/22 01/03/22 01/04/22 23:59 23:59 23:59 Intake Total 2140 / 2140 2670 / 2670 930 / 930 Output Total 2375 / 2375 2900 / 3200 1100 / 1100 Balance -235 / -235 -230 / -530 -170 / -170 Lab / Micro Data Result Diagrams: 01/02/22 05:35 01/02/22 05:35 Labs: Laboratory Results - last 24 hr 01/03/22 15:57: POC Glucose 111 H 01/03/22 20:32: POC Glucose 121 H 01/04/22 05:58: POC Glucose 84 Micro: Microbiology 12/16/21 20:40 Stool Stool Occult Blood (SAUD) - Final Occult Blood Positive Physical Exam Const alert, oriented x3 and no apparent distress Constitutional Narrative: Ambulating much better with the heel lift in the R shoe. Tells me he has less back pain and less R knee pain since the heel lift was placed in the shoe. He keeps the Left leg straight and swings it forward some.....not as much as prior to the lift. General Appearance: cooperative HEENT HEENT Narrative: I reminded him to increase his water intake. Mouth: dry mucous membranes Resp normal respiratory effort Cardio regular rate, regular rhythm, no murmurs and no gallops GI normal to inspection, nondistended, normoactive bowel sounds, soft to palpation and non-tender GI Narrative: He has a little tympany in the upper quadrants but has no pain and is asymptomatic. Extremity General Extremity: Negative for edema Skin Skin Narrative: No breakdown Rashes: no rashes Wounds: Negative for wounds noted Neuro Neuro Narrative: No dysarthria and he is better volume with normal modulation of his voice now. Psych cooperative and affect normal Psych Narrative: He is excited to be going home.......we talked about Saturday. Discussed with the SW and she is good with this. Appearance: appropriate Mood & Affect: Negative for depressed, anxious or flat affect Assessment & Plan Assessment/Plan (1) Acute right MCA stroke: PLAN: Plan on DC Saturday to home. Alcides would like to talk with Magaly to see if he would like HHC or OP therapy. Check the CBC and BMP tomorrow. (2) Urinary hesitancy: PLAN: Check a UA today and start Flomax. Will check orthostatics in the AM for the next 3 days to make sure he is not getting orthostatic with the addition of Flomax to his drug regimen. Will also check 3 more PVR's prior to DC. (3) BPH (benign prostatic hyperplasia): (4) Diabetes mellitus type 1.5, managed as type 1: PLAN: BS's are excellent with only 1 episode hypoglycemia recently. He ate breakfast today. Will decrease the lispro in the AM and continue to monitor the BS's AC and HS until DC. Will also decrease the HS Glargine a bit. (5) CKD (chronic kidney disease), stage III: QUALIFIERS: Chronic kidney disease stage 3 subtype: stage 3b (GFR 30-44) Qualified Code(s): N18.32 - Chronic kidney disease, stage 3b PLAN: Recheck the BMP in the AM (6) Essential (primary) hypertension: PLAN: BP is better with the addition of a small dose of Lisinopril to the drug regimen. Denies cough. Will be checking the potassium in the AM. It has been in the high 3's and I would like it to be 4-4.5 to help keep him in a SR. (7) Depression: PLAN: Continue sertraline for at least 3 months post discharge before even considering tapering the dose and discontinuing. He has had no adverse reactions to 50 mg daily. Charges/Coding Visit Charges Inpatient E&M: 92948 Subs Hosp L2
--- NOTE | 2022-01-04 14:25 | CASEMGMT ---
Addendum entered by Imani Traore 01/04/22 14:27: Notified Palliative of DC date Original Note: Social Work and IDT requesting pt DC home 01/07. SW contacted . agrees and feels comfortable taking him home. She requested she tells pt in person this evening during visit. denied any DME needs. requesting [facility]. to transport. Referral made to [facility] PT/OT/ST/SN. IDT updated. Plan: DC home with 01/07, [facility] PT/OT/ST/SN Imani Traore, NICKI MENENDEZW
[2022-01-04 15:53] LABS: Bacteria 0 SEEN /hpf (None Seen); Mucous, Urine 0 SEEN /hpf (<or=2+); Red Blood Cells-Urine 0 SEEN /hpf (0-5); Squamous Epithelial Cells - UA 0 SEEN /hpf (0-5); White Blood Cells 0 SEEN /hpf (0-5)
[2022-01-04 15:54] LABS: Color, Urine Straw (Yellow); Glucose, Dipstick Normal (Normal); Ketone-Dipstick Negative (Negative); Leukocyte Esterase-Dipstick Negative /ul (Negative); Nitrite-Dipstick Negative (Negative); Occult Blood-Urine Negative /ul (Negative); Protein-Dipstick Negative (Negative); Urine Bilirubin Dipstick Negative (Negative); Urine Clarity Clear (Clear); Urine Urobilinogen Normal (Normal)
[2022-01-04 16:16] LABS: Bedside Glucose 40 mg/dL (74-106)
[2022-01-04 16:16] LABS: Bedside Glucose 81 mg/dL (74-106)
[2022-01-04 16:16] LABS: Bedside Glucose 59 mg/dL (74-106)
[2022-01-04 16:16] LABS: Bedside Glucose 34 mg/dL (74-106)
[2022-01-04 16:45] LABS: Bedside Glucose 111 mg/dL (74-106)
[2022-01-04] MEDS: Tamsulosin HCl 0.4 MG Capsule PO (17:12)
[2022-01-04] MEDS: Insulin Lispro 100 UNIT/ML INSULN.PEN 18 UNIT SC (17:13)
[2022-01-04 21:02] VITALS: BP 121/57; PULSE 60; RESP 14; TEMP 36.9; O2SAT 95
[2022-01-04 21:50] LABS: Bedside Glucose 181 mg/dL (74-106)
[2022-01-04] MEDS: Insulin Glargine-YFGN 100 UNIT/ML Pen 16 UNIT SC (21:58)
[2022-01-04] MEDS: Acetaminophen 500 MG Tablet 1000 MG PO (21:59)
[2022-01-04] MEDS: Atorvastatin Calcium 80 MG Tablet PO (22:00)
[2022-01-05 02:02] VITALS: BMI 35.1
[2022-01-05 05:59] LABS: Hematocrit 28.2 % (40-54); Hemoglobin 9.3 g/dL (13.0-16.5); Mean Corpuscular Hgb 29.6 pg (27.0-32.0); Mean Corpuscular Volume 89.8 fL (80-94); Mean Platelet Vol. 10.9 fl (6.2-12.0); Platelet Count 256 K/mm3 (150-450); RBC Distribution Width CV 12.6 % (11.6-14.6); RBC Distribution Width SD 40.8 fl (35.1-43.9); Red Blood Count 3.14 M/mm3 (4.6-6.2); White Blood Count 5.5 K/mm3 (4.4-11.0)
[2022-01-05] MEDS: Arthritis Pain Compound 60 CLICK TUBE TOPICAL ×3 (06:19→21:15)
[2022-01-05 06:30] LABS: Bedside Glucose 151 mg/dL (74-106)
[2022-01-05 06:59] LABS: Anion Gap 7 (5-15); BUN 51 mg/dL (7-18); Calcium,Total 9.5 mg/dL (8.5-10.1); Chloride 106 mmol/L (98-107); Creatinine, Serum 2.55 mg/dL (0.70-1.30); EST Glomerular Filtration Rate 27 mL/min (>60); Est Glom Filt Rate - Afr Amer 32 mL/min (>60); Estimated Creatinine Clearance 26.57 ml/min; Glucose 147 mg/dL (74-106); Magnesium 1.8 mg/dL (1.6-2.6); Phosphorus 4.7 mg/dL (2.5-4.9); Sodium Level 138 mmol/L (136-145)
[2022-01-05 07:24] VITALS: BP 129/64; PULSE 57; RESP 18; TEMP 36.5; O2SAT 98
[2022-01-05] MEDS: Aspirin 81 MG TAB.CHEW PO (07:54)
[2022-01-05] MEDS: Furosemide 40 MG Tablet PO (07:55)
[2022-01-05] MEDS: APIXABAN 5 MG TABLET PO ×2 (07:55→21:14)
[2022-01-05] MEDS: Pantoprazole Sodium 20 MG Tablet PO ×2 (07:55→21:13)
[2022-01-05] MEDS: Carvedilol 25 MG Tablet PO ×2 (07:55→21:14)
[2022-01-05] MEDS: amLODIPine 10 MG Tablet PO (07:55)
[2022-01-05] MEDS: Lisinopril 2.5 MG Tablet PO (07:56)
[2022-01-05] MEDS: Sertraline 50 MG Tablet PO (07:56)
[2022-01-05] MEDS: Fenofibrate 145 MG Tablet PO (07:56)
[2022-01-05 08:03] VITALS: BP 129/59; BP 131/56; BP 132/57; PULSE 58; PULSE 60; PULSE 61
[2022-01-05] MEDS: Insulin Lispro 100 UNIT/ML INSULN.PEN 10 UNIT SC (08:06)
[2022-01-05] MEDS: Insulin Glargine-YFGN 100 UNIT/ML Pen 40 UNIT SC (08:08)
[2022-01-05 11:16] LABS: Bedside Glucose 139 mg/dL (74-106)
[2022-01-05] MEDS: Insulin Lispro 100 UNIT/ML INSULN.PEN 12 UNIT SC (12:07)
[2022-01-05] MEDS: Ferrous Sulfate 325 MG Tablet PO (12:07)
[2022-01-05] MEDS: Ascorbic Acid 500 MG Tablet 1000 MG PO (12:07)
[2022-01-05 17:00] VITALS: BMI 35.1
[2022-01-05 17:16] LABS: Bedside Glucose 123 mg/dL (74-106)
[2022-01-05] MEDS: Insulin Lispro 100 UNIT/ML INSULN.PEN 18 UNIT SC (17:45)
[2022-01-05] MEDS: Tamsulosin HCl 0.4 MG Capsule PO (17:45)
[2022-01-05 19:42] VITALS: BP 123/69; PULSE 82; RESP 18; TEMP 36.2; O2SAT 96
[2022-01-05] MEDS: Acetaminophen 500 MG Tablet 1000 MG PO (20:40)
[2022-01-05] MEDS: Insulin Glargine-YFGN 100 UNIT/ML Pen 16 UNIT SC (20:42)
[2022-01-05] MEDS: Atorvastatin Calcium 80 MG Tablet PO (21:14)
[2022-01-05 21:15] LABS: Bedside Glucose 116 mg/dL (74-106)
[2022-01-06] MEDS: Arthritis Pain Compound 60 CLICK TUBE TOPICAL ×3 (05:39→22:47)
[2022-01-06 06:46] LABS: Bedside Glucose 108 mg/dL (74-106)
[2022-01-06 07:30] VITALS: BP 124/72; BP 126/70; BP 130/60; PULSE 60; PULSE 62
[2022-01-06 08:00] VITALS: BP 126/59; PULSE 60; RESP 20; TEMP 36.2; O2SAT 96
--- NOTE | 2022-01-06 08:14 | PCM.DC ---
Discharge Instructions Diet Discharge Diet: - (2000 calorie carbohydrate consistent diet with low salt and low fat.) Activity Discharge Activity: May Not Drive, May Shower and Use Walker May resume sexual activity in: No Restrictions Weight Bearing Status: Full weight bearing Lifting Restrictions: 5-10 lbs Keep extremity elevated above heart level: Legs Additional Activity Instructions:: Do not sit for longer than an hour without getting up and stretching and taking a short walk. this will prevent your back and knees from getting so stiff. Dressing / Incision Call your doctor if you observe: Fever of 101 or Higher, Inability to urinate, Inability to have a bowel movement, Shortness of breath, Dizziness, Fainting spells, Swelling in the ankles (More than the usual amount in the R ankle.), Chest pain, Calf discomfort and Uncontrolled pain Follow Up Care Please Follow Up With: Lester Jarvis MD When: within 7-10 days Test Results: Test results from this visit will be discussed in further detail at your follow-up appointment, if applicable. Pending Tests Upon Discharge: none Discharge Plan Admission Admit Date/Time: 12/14/21 21:15 Primary Reason for Your Visit: Post embolic stroke debility. Attending Provider: Tash Gaitan Primary Care Provider: Lester Jarvis Instructions Patient Instructions: Hypoglycemia (Low Blood Sugar), Depression Affects Your Mind ..., Stroke Prevention Activity, Benign Prostatic Hyperplasia, Stroke Prevent Live W Atrial Fib, Apixaban Oral tablet, Tamsulosin Hydrochloride Oral capsule Additional Instructions / Restrictions: 1. I wrote a prescription for the arthritis cream we have been using on your back and your knees. The retail pharmacy at the hospital is the only pharmacy that makes this cream up so you need to get it filled at the [facility] retail pharmacy. I have given you 5 refills. 2. The Eliquis works by inhibiting Factor X which is a protein in the coagulation pathway. I checked the Factor X inhibitory activity and you are in the therapeutic range on 5 mg of Eliquis every 12 hours. 3. You have some blood in your stool that you can not see. This is not uncommon in patients taking 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s. Your body needs iron to make new red blood cells and your iron stores are low. I placed you on an iron supplement which you will take with a Vitamin C tablet and food once a day. The iron and food improve the absorption from your gastrointestinal tract. We also gave you 200 mg of iron in your vein prior to you going home. You are on a medication called Protonix (also called Pantoprazole) to prevent ulcers in the stomach. 4. Your BP is well controlled now and the blood sugars are under excellent control. We have adjusted/decreased your insulin in the hospital because on the diabetic diet your blood sugars were too low. If you stick to basically the same diet you have been eating in rehab I suspect your sugars will remain well controlled. As a diabetic develops chronic kidney disease and it worsens the need for insulin often decreases. I have given you some information on low blood sugars.......if you feel like your blood sugar is low check it.......if you are having low blood sugars call Dr. Jarvis for instructions on how to adjust the insulin dose. 5. You were having some symptoms of BPH (benign prostatic hyperplasia) in rehab. These sx include trouble getting started urinating and some dribbling after you have stopped urinating, urinary frequency, having to get up at night to urinate frequently and having to bear down to get the urine out. You are not retaining urine and that is a good thing. The stroke also can causes symptoms similar to BPH. We started you on a medication called Flomax (also called tamsulosin) to help make the urine flow more easily through the prostate. Dr. Jarvis will want to check a PSA on you if he has not already done so this year. 6. To prevent another stroke you must: Keep the BP under 130/80 Keep the HGBA1C less than 7 but not lower than 6.5. Keep the LDL (bad cholesterol) less than 70. Take the Eliquis 5 mg every 12 hours to prevent blood clots. 7. I have decreased the dose of the Fenofibrate to 45 mg daily.......160 mg is too high for the degree of chronic kidney disease that you have. 8. You are on an antidepressant called Zoloft ( also called Sertraline). You are in a much better mood and you are talking and interacting with people more. I recommend you continue the Zoloft for at least 3-6 months before you even consider getting off this medication. When it is time to get off the medication decrease the dose to 25 mg once a day for a month and if you continue to well you can try discontinuing. If you have any symptoms of depression pop back up after you discontinue the medication discuss with your PCP. 9. It was a pleasure meeting you Alcides and you have made good progress in rehab. I hope you will continue to make progress with the Home Therapy you will be getting post discharge from rehab. Keep moving and exercise......This helps to keep the blood sugars controlled, prevent strokes and heart disease and keeps the joints from getting too stiff. If you or Magaly have any questions after you leave rehab please call me! Office: [phone] 0r [id number] CEll: [phone] Discharge Orders/Prescriptions Prescriptions: New fenofibrate 54 mg tablet 54 mg PO DAILY Qty: 30 RF: 0 acetaminophen 500 mg Tablet 1,000 mg PO 2100 Qty: 0 RF: 0 Arthritis Pain Compound 2 click topical TID Qty: 2 RF: 5 ascorbic acid (vitamin C) 500 mg Tablet 1,000 mg PO LUNCH Qty: 0 RF: 0 aspirin 81 mg Tablet,Chewable 81 mg PO BREAKFAST Qty: 0 RF: 0 Mag 64 64 mg Tablet,Delayed Release (Dr/Ec) 128 mg PO DAILY Qty: 60 RF: 0 tamsulosin 0.4 mg Capsule 0.4 mg PO DAILY@1730 Qty: 30 RF: 0 sertraline 50 mg Tablet 50 mg PO DAILY Qty: 30 RF: 0 Eliquis 5 mg Tablet 5 mg PO BID Qty: 60 RF: 0 carvedilol 25 mg tablet 25 mg PO BID Qty: 180 RF: 3 Continued aspirin 81 mg Tablet,Chewable 81 mg PO DAILY RF: 0 amlodipine 10 mg Tablet 10 mg PO DAILY RF: 0 atorvastatin 80 mg Tablet 80 mg PO QHS RF: 0 amlodipine 10 mg Tablet 10 mg PO DAILY Qty: 30 RF: 0 ferrous sulfate 325 mg (65 mg iron) tablet 325 mg PO DAILY Qty: 30 RF: 0 omeprazole 20 mg capsule,delayed release(DR/EC) 20 mg PO DAILY Qty: 60 RF: 0 Changed furosemide 40 mg tablet 40 mg PO DAILY Qty: 30 RF: 0 insulin aspart U-100 100 UNITS/ML insulin pen See Rx Instructions .ROUTE .COMPLEX Qty: 15 RF: 0 insulin glargine 100 unit/mL (3 mL) insulin pen See Rx Instructions .ROUTE .COMPLEX Qty: 18 RF: 0 Discontinued fenofibrate 160 MG tablet 160 mg PO DAILY RF: 0 diclofenac sodium 1 % Gel 1 ea TOPICAL TID PRN (Reason: Pain) RF: 0 Eliquis 2.5 mg tablet 5 mg PO BID RF: 0 Other Ambulatory Orders: CBC-Complete Blood Cnt No Diff (Routine) Timeframe: 1 Week Facility: [facility] - Location: Laboratory Ordered By: Dr. Tash Gaitan Renal Profile (Routine) Timeframe: 1 Week Facility: [facility] - Location: Laboratory Ordered By: Dr. Tash Gaitan Referrals / Follow Up: Lester Jarvis MD [Primary Care Provider] - 01/18/22 2:20 am Disposition Disposition (needs filled in before D/C Order can be placed): Home Health Service
[2022-01-06] MEDS: Pantoprazole Sodium 20 MG Tablet PO ×2 (08:17→22:47)
[2022-01-06] MEDS: amLODIPine 10 MG Tablet PO (08:17)
[2022-01-06] MEDS: Aspirin 81 MG TAB.CHEW PO (08:17)
[2022-01-06] MEDS: Furosemide 40 MG Tablet PO (08:17)
[2022-01-06] MEDS: Sertraline 50 MG Tablet PO (08:17)
[2022-01-06] MEDS: Lisinopril 2.5 MG Tablet PO (08:17)
[2022-01-06] MEDS: APIXABAN 5 MG TABLET PO ×2 (08:17→22:47)
[2022-01-06] MEDS: Insulin Lispro 100 UNIT/ML INSULN.PEN 10 UNIT SC (08:18)
[2022-01-06] MEDS: Insulin Glargine-YFGN 100 UNIT/ML Pen 40 UNIT SC (08:19)
[2022-01-06] MEDS: Fenofibrate 145 MG Tablet PO (08:21)
[2022-01-06] MEDS: Carvedilol 25 MG Tablet PO ×2 (08:21→22:47)
--- NOTE | 2022-01-06 10:04 | DS.PCM_ITS ---
Providers Date of Admission: 12/14/21 Date of Discharge: 01/07/22 Primary Care Physician: Dr. Lester Jarvis MD Reason For Visit: CVA Diagnosis Discharge Diagnosis (1) Acute right MCA stroke: Status: Acute Code(s): I63.511 - Cerebral infarction due to unspecified occlusion or stenosis of right middle cerebral artery (2) Cerebral artery occlusion with cerebral infarction: Status: Acute Code(s): I63.50 - Cerebral infarction due to unspecified occlusion or stenosis of unspecified cerebral artery (3) Aphasia: Status: Acute Code(s): R47.01 - Aphasia (4) Jhon-neglect of left side: Status: Acute Code(s): R41.4 - Neurologic neglect syndrome (5) Acute left hemiparesis: Status: Acute Code(s): G81.94 - Hemiplegia, unspecified affecting left nondominant side (6) Cognitive dysfunction: Status: Acute Code(s): F09 - Unspecified mental disorder due to known physiological condition (7) Physical debility: Status: Acute Code(s): R53.81 - Other malaise (8) Left homonymous superior quadrantanopia: Status: Acute Code(s): H53.462 - Homonymous bilateral field defects, left side (9) Depression: Status: Acute Code(s): F32.A - Depression, unspecified Qualifiers: Depression Type: reactive depression Qualified Code(s): F32.9 - Major depressive disorder, single episode, unspecified (10) Urinary hesitancy: Status: Acute Code(s): R39.11 - Hesitancy of micturition (11) BPH (benign prostatic hyperplasia): Status: Acute Code(s): N40.0 - Benign prostatic hyperplasia without lower urinary tract symptoms Qualifiers: Lower urinary tract symptom detail: urinary hesitancy Lower urinary tract symptom presence: symptoms present Qualified Code(s): N40.1 - Benign prostatic hyperplasia with lower urinary tract symptoms; R39.11 - Hesitancy of micturition (12) Iron deficiency: Status: Acute Code(s): E61.1 - Iron deficiency (13) Normochromic normocytic anemia: Status: Acute Code(s): D64.9 - Anemia, unspecified (14) Heme + stool: Status: Acute Code(s): R19.5 - Other fecal abnormalities (15) Diabetes mellitus type 1.5, managed as type 1: Status: Acute Code(s): E13.9 - Other specified diabetes mellitus without complications (16) CKD (chronic kidney disease), stage III: Status: Chronic Code(s): N18.3 - Chronic kidney disease, stage 3 (moderate) Qualifiers: Chronic kidney disease stage 3 subtype: stage 3b (GFR 30-44) Qualified Code(s): N18.32 - Chronic kidney disease, stage 3b (17) Essential (primary) hypertension: Status: Chronic Code(s): I10 - Essential (primary) hypertension (18) Longstanding persistent atrial fibrillation: Status: Chronic Code(s): I48.11 - Longstanding persistent atrial fibrillation (19) Chronic combined systolic and diastolic CHF (congestive heart failure): Status: Chronic Code(s): I50.42 - Chronic combined systolic (congestive) and diastolic (congestive) heart failure (20) Non-ischemic cardiomyopathy: Status: Chronic Code(s): I42.8 - Other cardiomyopathies (21) 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 (LBBB): Status: Chronic Code(s): I44.7 - Left bundle-branch block, unspecified (22) Hyperlipidemia: Status: Chronic Code(s): E78.5 - Hyperlipidemia, unspecified Qualifiers: Hyperlipidemia type: unspecified Qualified Code(s): E78.5 - Hyperlipidemia, unspecified (23) 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 Discharged 01/07/22. [facility] for PT/OT/ST. No DME needed at DC 2. Follow up with Dr. Jarvis in 7-10 days. 3. Will need follow up with Neurology. Ask Dr. Jarvis for a referral or follow up with Dr. Ferrera in [place]. 4. Follow up with Dr. Harvey as previously arranged. 5. CBC without diff and renal profile in 1 week. 6. Follow up with [facility] for chronic renal failure. 7. Needs a PSA if he has not had 1 in the past year - will defer to Dr. Jarvis to order if appropriate. Medications at Discharge Home Medications aspirin 81 mg PO DAILY 12/14/21 Arthritis Pain Compound 2 click TOPICAL TID #2 bottle 01/06/22 acetaminophen 1,000 mg PO 2100 #0 tab 01/06/22 amlodipine 10 mg PO DAILY 01/06/22 amlodipine 10 mg PO DAILY #30 tab 01/06/22 apixaban [Eliquis] 5 mg PO BID #60 tab 01/06/22 ascorbic acid (vitamin C) 1,000 mg PO LUNCH #0 tab 01/06/22 aspirin 81 mg PO BREAKFAST #0 tab 01/06/22 atorvastatin 80 mg PO QHS 01/06/22 carvedilol 25 mg tablet 25 mg PO BID #180 tab 01/06/22 fenofibrate 54 mg PO DAILY #30 tab 01/06/22 ferrous sulfate 325 mg PO DAILY #30 tab 01/06/22 furosemide 40 mg PO DAILY #30 tab 01/06/22 insulin aspart U-100 See Rx Instructions .ROUTE .COMPLEX #15 ml 01/06/22 insulin glargine See Rx Instructions .ROUTE .COMPLEX #18 ml 01/06/22 magnesium chloride [Mag 64] 128 mg PO DAILY #60 tab 01/06/22 omeprazole 20 mg PO DAILY #60 cap 01/06/22 sertraline 50 mg PO DAILY #30 tab 01/06/22 tamsulosin 0.4 mg PO DAILY@1730 #30 cap 01/06/22 Hospital Course Operations - (Thrombectomy at [facility] on 12/05/21 - TICI 2c flow was restored) Procedures None Summary of Care Provided Minutes Spent on Discharge: 50 Hospital Course: ALCIDES SAINI, is a 71 YO M with a PMH of chronic AF, DM II, CHF (systolic and diastolic), HTN, placement of a spinal stimulator for chronic back pain, GERD, HLD, LBBB, CRF stage IIIb, hx of CVA (December 2017) and TIA's, obesity, HX of NSTEMI (02/02/20), non-ischemic CM (EF on most recent ECHO 45%), OA and secondary pulmonary HTN who presented to the ED at [facility] on 12/05/21 after falling in his BR and not being able to get up. His did not find him for 4 hours. He is on Chronic anticoagulation for AF (2.5. mg BID). A NC CTB d id not show hemorrhage but, the radiologist felt there was a dense R MCA with possible early stroke in the R temporal lobe. A CTA of the head and neck was ordered and tele-stroke from [facility] was consulted. The neurologist felt there was a possible skip lesion in the R MC 1 territory. Pt was flown to [facility] to be evaluated for a possible thrombectomy. The NIH at admission to [facility] was 14 and had been [address] [facility] ED. Sx included Left side weakness and facial droop. CTP showed ischemic penumbra in the R frontal, Temporal and and Parietal lobes. Neurosurgery was consulted and he underwent a thrombectomy and obtained TICI 2c revascularization. He was evaluated by PT/OT/ST and had a FEES while at [facility]. Inpt rehab was recommended. He was transferred to the inpt acute rehab unit at [facility] [place] on 12/14/21 for 3 hours of therapy daily to restore function/independence at or near his prior level of function. While at [facility] the Eliquis dose was increased to 5 mg BID. MRS at admission to rehab was 5 (severe disability). NIHSS upon arrival at rehab was 9. Alcides was incontinent of urine initially however, this has improved and he now is continent during the day with regularly scheduled toileting breaks. He has occasional incontinence at night. Post void residuals were not high but, he has hesitancy, dribbling and a slow stream. He was started on Flomax which has cut down on the nocturia and hesitancy and stream have improved. He often states he has dysuria when he first starts to urinate. A UA was checked at admission and on 01/05/22 and there is no infection. Alcides was quite depressed a t admission. This is his second stroke. His Magaly told me she felt he was depressed prior to the recent stroke (related to the of his pet possibly) and he was started on Zoloft 25 mg a day. He had no adverse side effects and after 10 days or so the dose was increased to 50 mg which he is tolerating without adverse reactions. His mood is significantly better. He is more talkative, makes good eye contact, he is more interactive with staff and he is sleeping well and eating well. I recommended he continue 50 mg daily for at least 3-6 months prior to considering tapering off. Lab revealed a N/N anemia which could be related to CRF stage 3b but, his % iron saturation is only 18.2% and the iron is low at 56. He was started on ferrous sulfate 325 mg daily and since he is chronically on a PPI Vitamin C was added to improve absorption from the GI tract. A hemoccult stool was positive. He was given a single dose of iron sucrose 200 mg IV. Hemoglobin dropped from 10 at admission to rehab to 9.3 at discharge. The MCV remains within normal limits and the already he was also normal. Creatinine at admission to rehab was 2.08. His creatinine for the previous 6 months has ranged from 2.55-2.69. Creatinine at discharge from rehab is 2.55 which is within his baseline. K was 4 at [facility] and the mag was only 1.8 so a magnesium supplement was added. Alcides was placed on a 2000 calorie, carb consistent, cardiac diet at admission and we have adjusted his insulin to get the FBS < 130 and All BS's less than 180 with no hypoglycemia. Alcides did well in rehab. I initially thought when he arrived he would likely go to SNF at [facility] but, he progressed well, erick after the Sertraline kicked in and he is going home at [facility]. Magaly came in for family training and she felt she could manage him by herself at home. His leg lengths were measured while he was in therapy and the R leg is shorter than the left. A lift was obtained for the R shoe and his gait is much better (longer strides with more fluid gait and better pace) . The pain in his R knee and low back has improved since the heel lift was initiated. Prior to discharge Alcides could ambulate up to 250 feet with a wheeled walker at contact-guard assist with a heel lift in his shoe. On 01/05/2022 he was standby assist to go from sitting to standing from various surfaces. He was able to ascend/descend 5 steps with 2 handrails at standby assist/contact-guard assist and a step to pattern. He is able to eat and groom himself independently. He can bathe by himself with standby assist initially at discharge. He is able to dress his upper body but requires minimal assistance with his lower body, especially with donning socks and shoes. Still requiring moderate assistance for toilet transfer but he is contact-guard assist for tub/shower transfer. His Magaly has purchased an elevated toilet seat for him which makes it easier for him to get on and off the toilet without assistance. Alcides was discharged home on 01/07/22. He needed no DME.....he already has everything he needs at home. He will have [facility] for PT/OT/ST post DC. He was given a lab requisition to obtain a CBC and renal profile in 1 week and will discuss the results of this lab with Dr. Jarvis at his next visit. HE will also follow up with Dr. Harvey, neurology and the [facility] following DC. Physical Exam Const alert, oriented x3, no apparent distress and well nourished Constitutional Narrative: Ambulating much better with the heel lift in the R shoe. Tells me he has less back pain and less R knee pain since the heel lift was placed in the shoe. He keeps the Left leg straight and swings it forward some.....not as much as prior to the lift. General Appearance: cooperative, comfortable, well kempt and well developed HEENT normocephalic Eyes PERRL, EOMs intact bilaterally, conjunctivae normal and no scleral icterus Eyes Narrative: He now has L homonymous quadrantanopsia in the upper quadrants....at admission he had left homonymous hemianopsia. He is more aware of his left side and is very good about scanning from R to left so he is no longer running into the side of the doorway when he enters his room. General Eye: normal appearance of both eyes Neck nuchal rigidity, no lymphadenopathy and supple Neck Narrative: I did not appreciate any bruits however, he could not hold his breath making the exam difficult. General: trachea midline Lymph Lymphatic: no lymphadenopathy noted Chest Chest: symmetrical chest wall rise Resp normal respiratory effort, normal air movement, no use of accessory muscles and clear to auscultation bilaterally Effort and Inspection: able to speak in complete sentences Cardio regular rate, regular rhythm, S1 normal heart sound, S2 normal heart sound, no murmurs, no gallops and peripheral pulses 2+ throughout Cardio Narrative: Irregular irregular with controlled ventricular response. GI normal to inspection, nondistended, normoactive bowel sounds, soft to palpation and non-tender GI Narrative: He has a little tympany in the upper quadrants but has no pain and is asymptomatic. Bladder / Kidney Exam: other still incontinent of urine. Extremity normal capillary refill, no clubbing, cyanosis or edema, no calf tenderness and no pedal edema Extremity Narrative: Edema of the RLE from the knee to the ankle......being controlled by the compression stockings which he does not always wear at home. General Extremity: Negative for edema Skin Skin Narrative: No breakdown General Skin Exam: no breakdown Rashes: no rashes Wounds: Negative for wounds noted Neuro Neuro Narrative: No dysarthria and he has better volume/projection with normal modulation of his voice now. Psych cooperative, affect normal, speech normal, denies hallucinations, denies homi cidal ideation and denies suicidal ideation Psych Narrative: He is excited to be going home.......we talked about Saturday. Discussed with the SW and she is good with this. Appearance: grossly normal, appropriate and well kempt Attitude: calm Activity / Motor Behavior: appropriate eye contact and other eye contact is improving Speech: normal speech Mood & Affect: euthymic mood; Negative for depressed, anxious, tearful or flat affect Thought Content: normal thought content, No suicidality, No homicidality, No delusion(s), No hallucination(s), No compulsion(s) and No obsession(s) Attention / Concentration: other inattention to the left side due to L homonymous hemianopia Memory / Cognition: cognition impaired Insight: fair Judgement: fair Weight / BMI Weight Weight: 224 lb 13.944 oz Body Mass Index (BMI) 35.1 ABG / Lab / Microbiology Data Result Diagrams: 01/05/22 05:37 01/05/22 05:37 Laboratory: Laboratory Results - last 24 hr 01/05/22 11:08: POC Glucose 139 H 01/05/22 17:05: POC Glucose 123 H 01/05/22 20:38: POC Glucose 116 H 01/06/22 06:32: POC Glucose 108 H Microbiology: Microbiology 12/16/21 20:40 Stool Stool Occult Blood (SAUD) - Final Occult Blood Positive Indicators for Scoring Admitted with or Primary Diagnosis of CVA/Stroke: Yes Hx of CVA/Stroke: Yes Modified [place] Score MRS Score at time of Evaluation: 3-Moderate disability (5 at admission and 3 at DC. ) NIHSS NIHSS 1a. Level of Consciousness: Alert; keenly responsive 1b. LOC Questions: Answers BOTH questions correctly. 1c. LOC Commands: Performs both tasks correctly. 2. Best Gaze: Normal 3. Visual: Partial hemianopia (Left superior homonymous quadrantanopia) 4. Facial Palsy: Normal symmetrical movements 5a. Left Arm: No drift; arm holds 90 (or 45) degrees for full 10 seconds 5b. Right Arm: No drift; arm holds 90 (or 45) degrees for full 10 seconds 6a. Left Leg: No drift; leg holds 30-degree position for full 5 seconds 6b. Right Leg: No drift; leg holds 30-degree position for full 5 seconds 7. Limb Ataxia: Absent 8. Sensory: Normal; no sensory loss 9. Best Language: No aphasia; normal 10. Dysarthria: Normal 11. Extinction and Inattention: Visual, tactile, auditory, spatial, or personal inattention Total: 2 D/C Instructions Discharge Diet: - (2000 calorie carbohydrate consistent diet with low salt and low fat.) May resume sexual activity in: No Restrictions Weight Bearing Status: Full weight bearing Keep extremity elevated above heart level: Legs Additional Activity Instructions: Do not sit for longer than an hour without getting up and stretching and taking a short walk. this will prevent your back and knees from getting so stiff. Call your doctor if you observe: Fever of 101 or Higher, Inability to urinate, Inability to have a bowel movement, Shortness of breath, Dizziness, Fainting spells, Swelling in the ankles (More than the usual amount in the R ankle.), Chest pain, Calf discomfort and Uncontrolled pain Pending Tests Upon Discharge: none Please Follow Up With: Lester Jarvis MD When: within 7-10 days Meaningful Use Info Meaningful Use Diagnoses (Choose all that apply): Ischemic CVA (Embolic CVA- right MCA distribution) CVA Therapy Assessed for PT,OT and/or ST?: Yes Ischemic Stroke Antithrombotic order at d/c?: Yes Dx of Atrial fib/flutter?: Yes Anticoagulant at discharge?: Yes Statins at discharge?: Yes Primary Dx Acute Ischemic CVA?: Yes IV tPA ordered during stay?: No Reason IV t-PA not ordered: Treatment not Indicated (We are a rehab unit, not an acute facility.) Discharge Plan Admission Admit Date/Time: 12/14/21 21:15 Primary Reason for Your Visit: Post embolic stroke debility. Attending Provider: Tash Gaitan Primary Care Provider: Lester Jarvis Instructions Patient Instructions: Hypoglycemia (Low Blood Sugar), Depression Affects Your Mind ..., Stroke Prevention Activity, Benign Prostatic Hyperplasia, Stroke Pr event Live W Atrial Fib, Apixaban Oral tablet, Tamsulosin Hydrochloride Oral capsule Additional Instructions / Restrictions: 1. I wrote a prescription for the arthritis cream we have been using on your back and your knees. The retail pharmacy at the hospital is the only pharmacy that makes this cream up so you need to get it filled at the [facility] retail pharmacy. I have given you 5 refills. 2. The Eliquis works by inhibiting Factor X which is a protein in the coagulation pathway. I checked the Factor X inhibitory activity and you are in the therapeutic range on 5 mg of Eliquis every 12 hours. 3. You have some blood in your stool that you can not see. This is not uncommon in patients taking 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s. Your body needs iron to make new red blood cells and your iron stores are low. I placed you on an iron supplement which you will take with a Vitamin C tablet and food once a day. The iron and food improve the absorption from your gastrointestinal tract. We also gave you 200 mg of iron in your vein prior to you going home. You are on a me dication called Protonix (also called Pantoprazole) to prevent ulcers in the stomach. 4. Your BP is well controlled now and the blood sugars are under excellent control. We have adjusted/decreased your insulin in the hospital because on the diabetic diet your blood sugars were too low. If you stick to basically the same diet you have been eating in rehab I suspect your sugars will remain well controlled. As a diabetic develops chronic kidney disease and it worsens the need for insulin often decreases. I have given you some information on low blood sugars.......if you feel like your blood sugar is low check it.......if you are having low blood sugars call Dr. Jarvis for instructions on how to adjust the insulin dose. 5. You were having some symptoms of BPH (benign prostatic hyperplasia) in rehab. These sx include trouble getting started urinating and some dribbling after you have stopped urinating, urinary frequency, having to get up at night to urinate frequently and having to bear down to get the urine out. You are not retaining urine and that is a good thing. The stroke also can causes symptoms similar to BPH. We started you on a medication called Flomax (also called tamsulosin) to help make the urine flow more easily through the prostate. Dr. Jarvis will want to check a PSA on you if he has not already done so this year. 6. To prevent another stroke you must: Keep the BP under 130/80 Keep the HGBA1C less than 7 but not lower than 6.5. Keep the LDL (bad cholesterol) less than 70. Take the Eliquis 5 mg every 12 hours to prevent blood clots. 7. I have decreased the dose of the Fenofibrate to 45 mg daily.......160 mg is too high for the degree of chronic kidney disease that you have. 8. You are on an antidepressant called Zoloft ( also called Sertraline). You are in a much better mood and you are talking and interacting with people more. I recommend you continue the Zoloft for at least 3-6 months before you even consider getting off this medication. When it is time to get off the medication decrease the dose to 25 mg once a day for a month and if you continue to well you can try discontinuing. If you have any symptoms of depression pop back up after you discontinue the medication discuss with your PCP. 9. It was a pleasure meeting you Alcides and you have made good progress in rehab. I hope you will continue to make progress with the Home Therapy you will be getting post discharge from rehab. Keep moving and exercise......This helps to keep the blood sugars controlled, prevent strokes and heart disease and keeps the joints from getting too stiff. If you or Magaly have any questions after you leave rehab please call me! Office: [phone] 0v [id number] CEll: [phone] Discharge Orders/Prescriptions Prescriptions: New fenofibrate 54 mg tablet 54 mg PO DAILY Qty: 30 RF: 0 acetaminophen 500 mg Tablet 1,000 mg PO 2100 Qty: 0 RF: 0 Arthritis Pain Compound 2 click topical TID Qty: 2 RF: 5 ascorbic acid (vitamin C) 500 mg Tablet 1,000 mg PO LUNCH Qty: 0 RF: 0 aspirin 81 mg Tablet,Chewable 81 mg PO BREAKFAST Qty: 0 RF: 0 Mag 64 64 mg Tablet,Delayed Release (Dr/Ec) 128 mg PO DAILY Qty: 60 RF: 0 tamsulosin 0.4 mg Capsule 0.4 mg PO DAILY@1730 Qty: 30 RF: 0 sertraline 50 mg Tablet 50 mg PO DAILY Qty: 30 RF: 0 Eliquis 5 mg Tablet 5 mg PO BID Qty: 60 RF: 0 carvedilol 25 mg tablet 25 mg PO BID Qty: 180 RF: 3 Continued aspirin 81 mg Tablet,Chewable 81 mg PO DAILY RF: 0 amlodipine 10 mg Tablet 10 mg PO DAILY RF: 0 atorvastatin 80 mg Tablet 80 mg PO QHS RF: 0 amlodipine 10 mg Tablet 10 mg PO DAILY Qty: 30 RF: 0 ferrous sulfate 325 mg (65 mg iron) tablet 325 mg PO DAILY Qty: 30 RF: 0 omeprazole 20 mg capsule,delayed release(DR/EC) 20 mg PO DAILY Qty: 60 RF: 0 Changed furosemide 40 mg tablet 40 mg PO DAILY Qty: 30 RF: 0 insulin aspart U-100 100 UNITS/ML insulin pen See Rx Instructions .ROUTE .COMPLEX Qty: 15 RF: 0 insulin glargine 100 unit/mL (3 mL) insulin pen See Rx Instructions .ROUTE .COMPLEX Qty: 18 RF: 0 Discontinued fenofibrate 160 MG tablet 160 mg PO DAILY RF: 0 diclofenac sodium 1 % Gel 1 ea TOPICAL TID PRN (Reason: Pain) RF: 0 Eliquis 2.5 mg tablet 5 mg PO BID RF: 0 Other Ambulatory Orders: CBC-Complete Blood Cnt No Diff (Routine) Timeframe: 1 Week Facility: [facility] - Location: Laboratory Ordered By: Dr. Tash Gaitan Magnesium (Routine) Timeframe: 1 Week Facility: [facility] - Location: Laboratory Ordered By: Dr. Tash Gaitan Renal Profile (Routine) Timeframe: 1 Week Facility: [facility] - Location: Laboratory Ordered By: Dr. Tash Gaitan Referrals / Follow Up: Lester Jarvis MD [Primary Care Provider] - 01/18/22 2:20 am Disposition Disposition (needs filled in before D/C Order can be placed): Home Health Service Charges/Coding Visit Charges Inpatient E&M: 48817 Disch Hosp
[2022-01-06] MEDS: Sodium Ferric Gluconat 250 MG in 0.9% Normal Saline 250 ML 135 MG IV (10:54)
[2022-01-06] MEDS: Magnesium Chloride 64 MG Delay Rel.Tablet 128 MG PO (11:00)
[2022-01-06] MEDS: Ascorbic Acid 500 MG Tablet 1000 MG PO (11:01)
[2022-01-06] MEDS: Ferrous Sulfate 325 MG Tablet PO (11:01)
[2022-01-06] MEDS: 0.9% Saline Lock 10 ML Syringe IV (11:04)
[2022-01-06] MEDS: Insulin Lispro 100 UNIT/ML INSULN.PEN 12 UNIT SC (12:39)
[2022-01-06 12:46] LABS: Bedside Glucose 94 mg/dL (74-106)
[2022-01-06 16:26] VITALS: BMI 35.1
[2022-01-06 17:11] LABS: Bedside Glucose 140 mg/dL (74-106)
[2022-01-06] MEDS: Insulin Lispro 100 UNIT/ML INSULN.PEN 18 UNIT SC (17:27)
[2022-01-06] MEDS: Tamsulosin HCl 0.4 MG Capsule PO (17:27)
[2022-01-06 19:42] VITALS: BP 145/56; PULSE 62; RESP 16; TEMP 36.7; O2SAT 92
[2022-01-06] MEDS: Insulin Glargine-YFGN 100 UNIT/ML Pen 16 UNIT SC (22:26)
[2022-01-06] MEDS: Acetaminophen 500 MG Tablet 1000 MG PO (22:26)
[2022-01-06] MEDS: Atorvastatin Calcium 80 MG Tablet PO (22:47)
[2022-01-06 23:06] LABS: Bedside Glucose 131 mg/dL (74-106)
[2022-01-07] MEDS: Arthritis Pain Compound 60 CLICK TUBE TOPICAL (05:48)
[2022-01-07 07:21] LABS: Bedside Glucose 104 mg/dL (74-106)
[2022-01-07] MEDS: Insulin Lispro 100 UNIT/ML INSULN.PEN 10 UNIT SC (07:59)
[2022-01-07] MEDS: Insulin Glargine-YFGN 100 UNIT/ML Pen 40 UNIT SC (08:00)
[2022-01-07] MEDS: Sertraline 50 MG Tablet PO (08:02)
[2022-01-07] MEDS: Aspirin 81 MG TAB.CHEW PO (08:02)
[2022-01-07] MEDS: Carvedilol 25 MG Tablet PO (08:02)
[2022-01-07] MEDS: Lisinopril 2.5 MG Tablet PO (08:02)
[2022-01-07] MEDS: Fenofibrate 145 MG Tablet PO (08:02)
[2022-01-07] MEDS: Pantoprazole Sodium 20 MG Tablet PO (08:03)
[2022-01-07] MEDS: APIXABAN 5 MG TABLET PO (08:03)
[2022-01-07] MEDS: Magnesium Chloride 64 MG Delay Rel.Tablet 128 MG PO (08:04)
[2022-01-07] MEDS: amLODIPine 10 MG Tablet PO (08:04)
[2022-01-07 08:30] VITALS: BP 121/51; PULSE 59; RESP 16; TEMP 36.2; O2SAT 97
[2022-01-07 09:30] VITALS: BMI 35.1
[2022-01-07 10:45] VITALS: BP 121/51; PULSE 59; RESP 16; TEMP 36.2; O2SAT 97
--- NOTE | 2022-01-07 10:45 | NURSING ---
Discharge to home with and verbalized understanding to instructions.
== END 2022-01-07 10:45 | disposition home health service (06) | DRG 57 ==
PROVIDERS: Admitting Provider Internal Medicine; PCP Family Medicine; Visit Provider Internal Medicine
DX: I69.354 Hemiplegia and hemiparesis following cerebral infarction affecting left non-dominant side (principal); I13.0 Hypertensive heart and chronic kidney disease with heart failure and stage 1 through stage 4 chronic kidney disease, or unspecified chronic kidney disease; I50.42 Chronic combined systolic (congestive) and diastolic (congestive) heart failure; I42.8 Other cardiomyopathies; E13.22 Other specified diabetes mellitus with diabetic chronic kidney disease; I27.29 Other secondary pulmonary hypertension; I48.0 Paroxysmal atrial fibrillation; Z79.4 Long term (current) use of insulin; N18.32 Chronic kidney disease, stage 3b; E61.1 Iron deficiency; F32.9 Major depressive disorder, single episode, unspecified; I44.7 Left bundle-branch block, unspecified; K21.9 Gastro-esophageal reflux disease without esophagitis; D64.9 Anemia, unspecified; E78.5 Hyperlipidemia, unspecified; N40.1 Benign prostatic hyperplasia with lower urinary tract symptoms; I25.2 Old myocardial infarction; I69.320 Aphasia following cerebral infarction; I69.392 Facial weakness following cerebral infarction; I69.319 Unspecified symptoms and signs involving cognitive functions following cerebral infarction; I69.398 Other sequelae of cerebral infarction; H53.462 Homonymous bilateral field defects, left side; Z79.01 Long term (current) use of 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s; Z79.82 Long term (current) use of aspirin; R32 Unspecified urinary incontinence; E66.9 Obesity, unspecified; Z79.899 Other long term (current) drug therapy; Z68.35 Body mass index [BMI] 35.0-35.9, adult; R39.11 Hesitancy of micturition
CPT/HCPCS: 36415; 80048; 80053; 80069; 81001; 82274; 82306; 82728; 82962; 83540; 83550; 83735; 84100; 84484; 85014; 85018; 85027; 85270; 92507; 92523; 92526; 92610; 94762; 97110; 97112; 97116; 97129; 97130; 97162; 97166; 97530; 97535; 97802; 99251; J7050; A4216; G0463; J2916

== ENCOUNTER → 2022-01-12 | Outpatient (CLI) | payer MEDICARE, SELFPAY ==
[2022-01-12 17:29] LABS: Hematocrit 32.3 % (40-54); Hemoglobin 10.2 g/dL (13.0-16.5); Mean Corp Hgb Conc 31.6 g/dL (32-36); Mean Corpuscular Hgb 29.6 pg (27.0-32.0); Mean Corpuscular Volume 93.6 fL (80-94); Mean Platelet Vol. 12.2 fl (6.2-12.0); Platelet Count 285 K/mm3 (150-450); RBC Distribution Width CV 12.9 % (11.6-14.6); RBC Distribution Width SD 44.4 fl (35.1-43.9); Red Blood Count 3.45 M/mm3 (4.6-6.2); White Blood Count 7.8 K/mm3 (4.4-11.0)
[2022-01-12 17:45] LABS: Albumin, Serum 3.7 g/dL (3.2-5.0); BUN 38 mg/dL (7-18); BUN/Creat Ratio 16.6 RATIO (10-20); Calcium,Total 9.4 mg/dL (8.5-10.1); Chloride 104 mmol/L (98-107); Creatinine, Serum 2.29 mg/dL (0.70-1.30); EST Glomerular Filtration Rate 30 mL/min (>60); Est Glom Filt Rate - Afr Amer 36 mL/min (>60); Glucose 152 mg/dL (74-106); Magnesium 2.1 mg/dL (1.6-2.6); Phosphorus 2.9 mg/dL (2.5-4.9); Potassium 4.3 mmol/L (3.5-5.1); Sodium Level 140 mmol/L (136-145)
== END | disposition home or self-care (01) ==
PROVIDERS: PCP Family Medicine; Referring Provider Internal Medicine; Visit Provider Internal Medicine
DX: D64.9 Anemia, unspecified (principal); N18.30 Chronic kidney disease, stage 3 unspecified; E83.42 Hypomagnesemia
CPT/HCPCS: 36415; 80069; 83735; 85027

== ENCOUNTER 2022-01-24 13:23 | Emergency (ER) | payer MEDICARE, SELFPAY ==
[2022-01-24 13:25] VITALS: BP 142/69; PULSE 61; RESP 18; TEMP 36.8; O2SAT 97; BMI 32.5
[2022-01-24 13:36] VITALS: BP 139/74; PULSE 61; RESP 24; O2SAT 97
--- NOTE | 2022-01-24 14:34 | EKG12_ITS ---
Test Reason : Blood Pressure : / mmHG Vent. Rate : 061 BPM Atrial Rate : 241 BPM P-R Int : 000 ms QRS Dur : 126 ms QT Int : 450 ms P-R-T Axes : 000 -57 082 degrees QTc Int : 453 ms Possible A Flutter Left axis deviation Non-specific intra-ventricular conduction block Abnormal ECG Confirmed by MURALI BESS, YONY ([id number]), editor in chief newspaper JHONATAN CRANDALL ([id number]) on 01/26/2022 10:41:07 A M Referred By: Confirmed By:WAYNE CARRION MD
--- NOTE | 2022-01-24 14:36 | EDS_ITS ---
HPI History of Present Illness Chief Complaint: General Illness Informant: patient and spouse/S.O. Onset/Context/Timing Onset: Weeks Context: Gradual Onset Timing: Intermittent Current Severity: Mild Maximum Severity: Mild Narrative Narrative: 71-year-old male about a month ago was admitted to ICU diversity due to acute stroke and had a thrombectomy to be done through a catheter. He then was here in the TCU and was discharged home. His first complaint is having burning with urination and the pains in his right thigh along with some dysuria. He denies hematuria or cloudy urine. He denies any fever or chills. He believes this all started when he had a Wiggins catheter placed when he was having his stroke a month ago. He said it was treated with Flomax and got better and when they remove the catheter it improved. He said the symptoms started again yesterday. His also want to bring up that he is recently been having exertional shortness of breath. He does have a history of CHF, anemia, kidney disease, diabetes prior HI and A. fib for which he is on the blood thinner Eliquis. Prior similar symptoms: Yes Recent Illness/Hospitalization: Yes [facility] Medical History Acute on chronic combined systolic (congestive) and diastolic (congestive) heart failure (02/02/20) Acute right MCA stroke Anemia Cerebral artery occlusion with cerebral infarction Chronic combined systolic and diastolic CHF (congestive heart failure) Chronic low back pain CKD (chronic kidney disease), stage III CVA (cerebral vascular accident) (12/2017) Diabetes mellitus type 1.5, managed as type 1 Essential (primary) hypertension GERD (gastroesophageal reflux disease) History of iron deficiency History of non-ST elevation myocardial infarction (NSTEMI) (02/02/20) Hyperlipidemia 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 (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 of 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 Longstanding persistent atrial fibrillation Non-ischemic cardiomyopathy NSVT (nonsustained ventricular tachycardia) Obesity Osteoarthritis Paroxysmal atrial fibrillation Secondary pulmonary arterial hypertension TIA (transient ischemic attack) (12/2017) Home Medications aspirin 81 mg PO DAILY 12/14/21 [History Last Taken 12/14/21 10:00] Arthritis Pain Compound 2 click TOPICAL TID #2 bottle 01/06/22 [Rx Last Taken Unknown] acetaminophen 1,000 mg PO 2100 #0 tab 01/06/22 [Rx Last Taken Unknown] amlodipine 10 mg PO DAILY 01/06/22 [History Last Taken 12/14/21 10:00] apixaban [Eliquis] 5 mg PO BID #60 tab 01/06/22 [Rx Last Taken Unknown] ascorbic acid (vitamin C) 1,000 mg PO LUNCH #0 tab 01/06/22 [Rx Last Taken Unknown] atorvastatin 80 mg PO QHS 01/06/22 [History Last Taken 12/13/21 22:00] carvedilol 25 mg tablet 25 mg PO BID #180 tab 01/06/22 [Rx Last Taken Unknown] fenofibrate 54 mg PO DAILY #30 tab 01/06/22 [Rx Last Taken Unknown] ferrous sulfate 325 mg PO DAILY #30 tab 01/06/22 [Rx Last Taken 02/02/20] furosemide 40 mg PO DAILY #30 tab 01/06/22 [Rx Last Taken Unknown] insulin aspart U-100 See Rx Instructions .ROUTE .COMPLEX #15 ml 01/06/22 [Rx Last Taken 02/02/20] insulin glargine See Rx Instructions .ROUTE .COMPLEX #18 ml 01/06/22 [Rx Last Taken 12/14/21 07:00] magnesium chloride [Mag 64] 128 mg PO DAILY #60 tab 01/06/22 [Rx Last Taken Unknown] omeprazole 20 mg PO DAILY #60 cap 01/06/22 [Rx Last Taken Unknown] sertraline 50 mg PO DAILY #30 tab 01/06/22 [Rx Last Taken Unknown] tamsulosin 0.4 mg PO DAILY@1730 #30 cap 01/06/22 [Rx Last Taken Unknown] Allergy/AdvReac Type Severity Reaction Status Date / Time rofecoxib Allergy Hives Verified 01/24/22 13:24 Family History Mother Heart disease Sister Heart disease Myocardial infarction CVA (cerebral vascular accident) Diabetes Brother CVA (cerebral vascular accident) Surgical History History of back surgery History of knee replacement, total Social History Smoking Status: Never smoker alcohol intake: current alcohol intake frequency: holidays/special occasions only Alcohol type: beer substance use type: does not use caffeine: Yes Type: coffee Number of servings: 2 ROS ROS ED ROS Narrative Dysuria. Dyspnea. Review of Systems ROS Unobtainable: Denies due to encephalopathy Constitutional Constitutional ED: Denies fever(s) Eyes Eyes: Denies change in vision ENT ENT ED: Denies ear pain Cardiovascular Cardiovascular: Denies chest pain Respiratory/Chest Respiratory/Chest: Reports dyspnea and dyspnea on exertion; Denies cough or sputum Gastrointestinal Gastrointestinal: Denies abdominal pain, diarrhea, nausea or vomiting Genitourinary Genitourinary ED: Reports dysuria Musculoskeletal Musculoskeletal: Denies myalgias Integumentary Denies rash Neurologic Neurologic: Denies headache(s) Psychiatric Psychiatric: Denies depression Endocrine Endocrinology: Denies polyuria Allergic/Immunologic Allergic/Immunologic ED: Denies urticaria EXAM Physical Exam Narrative Exam Narrative: 71-year-old male no acute distress. Vital signs stable afebrile. Pulse ox 97% on room air no signs hypoxia. H EENT exam unremarkable. Neck nontender. Lungs clear to auscultation. Heart regular rate and rhythm no murmur rate is 60. Abdomen soft nontender. Moving all 4 extremities. Calves are nontender without edema or cords. Dorsi plantarflexion intact. 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 Neurologically is awake and alert with no focal motor deficits. Const Vital Signs: 01/24/22 13:25 01/24/22 13:36 01/24/22 14:57 Temperature 98.2 F Temperature Source Temporal Pulse Rate 61 61 Respiratory Rate 18 24 H Respiratory Effort Respiratory Pattern Blood Pressure 142/69 H 139/74 H Blood Pressure Mean 93 95 Pulse Ox 97 97 95 Oxygen Delivery Method Room Air Room Air 01/24/22 14:58 01/24/22 15:47 Temperature Temperature Source Pulse Rate 61 Respiratory Rate 20 H Respiratory Effort Normal Non-Labored Respiratory Pattern Tachypnea Blood Pressure 130/71 H Blood Pressure Mean 90 Pulse Ox 97 Oxygen Delivery Method Room Air Positive well nourished, well developed and obese; Negative for cachectic, contractures or unkempt General Appearance ED: well developed and NAD; Negative for unkempt, cachectic, contractures, cyanotic, diaphoretic or pallor Nutritional Appearance: obese; Negative for cachectic HEENT Reports moist mucous membranes Negative for trauma or tenderness Eyes PERRL and EOMs intact bilaterally General Eye ED: Negative for pale conjunctiva or scleral icterus Neck no lymphadenopathy, supple and no JVD General: Negative for tenderness Chest Wall inspection of chest normal and palpation of chest normal Resp normal respiratory effort and clear to auscultation bilaterally Effort and Inspection: Negative for pain with movement Auscultation: Negative for rales, rhonchi or wheezes Cardio regular rate, regular rhythm, S1 normal heart sound, S2 normal heart sound and no murmurs GI normal to inspection, nondistended, normoactive bowel sounds, non-tender, non- distended and no masses Inspection: Negative for abdominal distention Auscultation: normoactive bowel sounds Palpation: soft; Negative for tender, guarding or rebound tenderness present Back/Spine no CVA tenderness General Back: Negative for CVA tenderness Cervical Spine: Negative for cervical spine tenderness Thoracic Spine / Upper Back: Negative for thoracic spinal tenderness or paraspinal muscle tenderness Extremity normal to inspection General Extremety ED: Negative for edema or tenderness General Extremity: Negative for edema Neuro oriented x3 Sensorium / Orientation: alert; Negative for orientation impaired, lethargic or stuporous Motor Exam: strength 5/5 throughout Psych mental status grossly normal Appearance: Negative for unkempt Attitude: No agitated Mood & Affect: Negative for depressed or tearful Skin no rashes or lesions noted and no wounds General Skin Exam: Negative for jaundice or pallor MDM MDM MDM Narrative Medical decision making narrative: 71-year-old presents concerned he is having some dysuria. Urinalysis to be obtained. He is also having some recent exertional dyspnea undergone cardiac work-up. I do not think this is a PE he is already on Eliquis. Repeat exam patient is doing well at 4:30 PM. Discussed with both he and his . These are his baseline labs. They are comfortable with him being discharged home with outpatient follow-up. 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 Lab Data Attestation: I reviewed the patient's lab results. Lab results narrative: CBC shows a white count of 8. H&H of 10.4 and 31.7. D- dimer is elevated 1.59. Urinalysis negative. Electrolytes show a gap of 6 BUN of 33 creatinine of 2. Glucose of 173. Troponins elevated at 206. Patient has had elevated troponins in November, December and now in January. D-dimer is also elevated at 1.59. Clinically I do not think this is a blood clot. He is already on chronic anticoagulation from [employer]. And his renal function prevents me from doing a CTA which I do not think is clinically necessary at this time. Urinalysis is negative. Labs: Laboratory Results - last 24 hr 01/24/22 01/24/22 01/24/22 14:55 14:55 14:55 WBC 8.0 RBC 3.46 L Hgb 10.4 L Hct 31.7 L MCV 91.6 MCH 30.1 MCHC 32.8 RDW Std Deviation 43.8 RDW Coeff of Whitney 13.1 Plt Count 241 MPV 11.6 Immature Gran % (Auto) 0.400 Neut % (Auto) 76.0 H Lymph % (Auto) 8.6 L Pine % (Auto) 11.2 H Eos % (Auto) 3.4 Baso % (Auto) 0.4 Absolute Neuts (auto) 6.1 Absolute Lymphs (auto) 0.69 L Nucleated RBC % 0 D-Dimer Quant (PE/DVT) 1.59 H* Sodium 140 Potassium 4.2 Chloride 107 Carbon Dioxide 27.0 Anion Gap 6 BUN 33 H Creatinine 2.05 H Estim Creat Clear Calc 31.98 Est GFR (MDRD) Af Amer 41 L Est GFR (MDRD) Non-Af 34 L BUN/Creatinine Ratio 16.1 Glucose 173 H Calcium 9.3 Troponin I High Sens 206 H* Urine Color Urine Clarity Urine pH Ur Specific [place] Urine Protein Urine Glucose (UA) Urine Ketones Urine Occult Blood Urine Nitrite Urine Bilirubin Urine Urobilinogen Ur Leukocyte Esterase Urine RBC Urine WBC Ur Squamous Epith Cells Urine Bacteria Urine Mucus 01/24/22 14:55 WBC RBC Hgb Hct MCV MCH MCHC RDW Std Deviation RDW Coeff of Whitney Plt Count MPV Immature Gran % (Auto) Neut % (Auto) Lymph % (Auto) Pine % (Auto) Eos % (Auto) Baso % (Auto) Absolute Neuts (auto) Absolute Lymphs (auto) Nucleated RBC % D-Dimer Quant (PE/DVT) Sodium Potassium Chloride Carbon Dioxide Anion Gap BUN Creatinine Estim Creat Clear Calc Est GFR (MDRD) Af Amer Est GFR (MDRD) Non-Af BUN/Creatinine Ratio Glucose Calcium Troponin I High Sens Urine Color Straw Urine Clarity Clear Urine pH 6.0 Ur Specific [place] 1.010 Urine Protein Negative Urine Glucose (UA) Normal Urine Ketones Negative Urine Occult Blood Negative Urine Nitrite Negative Urine Bilirubin Negative Urine Urobilinogen Normal Ur Leukocyte Esterase Negative Urine RBC 0 SEEN Urine WBC 0-5 SEEN Ur Squamous Epith Cells 0 SEEN Urine Bacteria 0 SEEN Urine Mucus 0 SEEN Radiography Chest X-Ray - ED: 1 View, Read by ED Physician, Lungs, Mediastinum, Bony Structures, No Acute Disease and Cardiomegaly Diagnostic Testing: Clinical Impression(s) from Imaging Studies Chest X-Ray 01/24/22 15:05 IMPRESSION: Borderline cardiomegaly. Stable examination. Electronically Signed: Hugo Gross MD at 15:21 EDT , Rhythm Strip Rhythm Strip: Sinus Rhythm Rate: 61 Ectopy: None EKG Initial EKG: Attestation: I personally reviewed and interpreted this EKG as follows: Interpretation: Sinus Rhythm and No Acute Injury Pattern Comments: Normal sinus rhythm rate of 61 with no acute signs of HI or ischemia. Discharge Plan Triage Chief Complaint: General Illness ED Provider: Raul Moya Dx/Rx/DC Orders Clinical Impression: Dysuria, Acute leg pain, Acute dyspnea, History of kidney disease, History of diabetes mellitus, History of atrial fibrillation Prescriptions: No Action aspirin 81 mg Tablet,Chewable 81 mg PO DAILY RF: 0 fenofibrate 54 mg tablet 54 mg PO DAILY Qty: 30 RF: 0 acetaminophen 500 mg Tablet 1,000 mg PO 2100 Qty: 0 RF: 0 Arthritis Pain Compound 2 click topical TID Qty: 2 RF: 5 ascorbic acid (vitamin C) 500 mg Tablet 1,000 mg PO LUNCH Qty: 0 RF: 0 Mag 64 64 mg Tablet,Delayed Release (Dr/Ec) 128 mg PO DAILY Qty: 60 RF: 0 tamsulosin 0.4 mg Capsule 0.4 mg PO DAILY@1730 Qty: 30 RF: 0 sertraline 50 mg Tablet 50 mg PO DAILY Qty: 30 RF: 0 Eliquis 5 mg Tablet 5 mg PO BID Qty: 60 RF: 0 amlodipine 10 mg Tablet 10 mg PO DAILY RF: 0 furosemide 40 mg tablet 40 mg PO DAILY Qty: 30 RF: 0 atorvastatin 80 mg Tablet 80 mg PO QHS RF: 0 carvedilol 25 mg tablet 25 mg PO BID Qty: 180 RF: 3 ferrous sulfate 325 mg (65 mg iron) tablet 325 mg PO DAILY Qty: 30 RF: 0 omeprazole 20 mg capsule,delayed release(DR/EC) 20 mg PO DAILY Qty: 60 RF: 0 insulin aspart U-100 100 UNITS/ML insulin pen See Rx Instructions .ROUTE .COMPLEX Qty: 15 RF: 0 insulin glargine 100 unit/mL (3 mL) insulin pen See Rx Instructions .ROUTE .COMPLEX Qty: 18 RF: 0 Primary Care Provider: Lester Jarvis Referrals: Lester Jarvis MD [Primary Care Provider] - As Needed Activity Restrictions/Additional Instructions: Follow-up with your primary care physician as needed. Follow-up with your cardiology appointment. Return if feeling worse. Disposition Disposition: Home, Self Care
[2022-01-24 14:57] VITALS: O2SAT 95
[2022-01-24 15:05] LABS: Bacteria 0 SEEN /hpf (None Seen); Mucous, Urine 0 SEEN /hpf (<or=2+); Red Blood Cells-Urine 0 SEEN /hpf (0-5); Squamous Epithelial Cells - UA 0 SEEN /hpf (0-5)
--- NOTE | 2022-01-24 15:05 | RAD_ITS ---
STUDY: X-RAY CHEST REASON FOR EXAM: Male, 71 years old. Chest pain TECHNIQUE: Single AP portable view of the chest. COMPARISON: Comparison is made with prior study 12/05/2021. FINDINGS: EKG electrodes are seen. Electrodes from a bone stimulating device are seen at the T7-T8 level. Stable mild increased markings at the lung bases suggestive of mild scarring. There is no demonstrated pleural abnormality. There is borderline cardiomegaly. Normal mediastinum and daniel. Normal visualized pulmonary arteries. Normal visualized aortic arch and descending thoracic aorta. Normal visualized thoracic spine. There is degenerative osteoarthritis of the bilateral shoulders. There is no demonstrated abnormality of the visualized soft tissue structures of the upper abdomen. RAD/Chest 1 View (Portable) IMPRESSION: Borderline cardiomegaly. Stable examination. Electronically Signed: Hugo Gross MD at 15:21 EDT ,
[2022-01-24 15:07] LABS: Absolute Lymphocyte Count 0.69 X10^3/uL (0.83-4.51); Absolute Neutrophil Count 6.1 X10^3/uL (2.0-7.7); Basophil# 0.03 X10^3/uL; Basophil% 0.4 % (0-1); Eosinophil# 0.27 X10^3/uL; Eosinophils% 3.4 % (0-5); Hematocrit 31.7 % (40-54); Hemoglobin 10.4 g/dL (13.0-16.5); Lymphocyte # 0.69 X10^3/ul (0.83-4.51); Lymphocyte % 8.6 % (19-41); Mean Corp Hgb Conc 32.8 g/dL (32-36); Mean Corpuscular Hgb 30.1 pg (27.0-32.0); Mean Corpuscular Volume 91.6 fL (80-94); Mean Platelet Vol. 11.6 fl (6.2-12.0); Monocyte% 11.2 % (0-10); NRBC Flagged by Analyzer 0 % (0-5); Neutrophil # 6.11 X10^3/uL (2.7-7.7); Platelet Count 241 K/mm3 (150-450); RBC Distribution Width CV 13.1 % (11.6-14.6); RBC Distribution Width SD 43.8 fl (35.1-43.9); Red Blood Count 3.46 M/mm3 (4.6-6.2)
[2022-01-24 15:26] LABS: D-Dimer Quantitative (DVT/PE) 1.59 FEU/ug/m (0.27-0.49)
[2022-01-24 15:40] LABS: Color, Urine Straw (Yellow); Glucose, Dipstick Normal (Normal); Ketone-Dipstick Negative (Negative); Leukocyte Esterase-Dipstick Negative /ul (Negative); Nitrite-Dipstick Negative (Negative); Occult Blood-Urine Negative /ul (Negative); Protein-Dipstick Negative (Negative); Urine Bilirubin Dipstick Negative (Negative); Urine Clarity Clear (Clear); Urine Urobilinogen Normal (Normal)
[2022-01-24 15:47] VITALS: BP 130/71; PULSE 61; RESP 20; O2SAT 97
[2022-01-24 16:04] LABS: White Blood Cells 0-5 SEEN /hpf (0-5)
[2022-01-24 16:09] LABS: Anion Gap 6 (5-15); BUN 33 mg/dL (7-18); BUN/Creat Ratio 16.1 RATIO (10-20); Calcium,Total 9.3 mg/dL (8.5-10.1); Chloride 107 mmol/L (98-107); Creatinine, Serum 2.05 mg/dL (0.70-1.30); EST Glomerular Filtration Rate 34 mL/min (>60); Est Glom Filt Rate - Afr Amer 41 mL/min (>60); Estimated Creatinine Clearance 31.98 ml/min; Glucose 173 mg/dL (74-106); Potassium 4.2 mmol/L (3.5-5.1); Sodium Level 140 mmol/L (136-145); Troponin-I HS (w/2H Reflex) 206 pg/mL (3.0-78.0)
[2022-01-24 17:03] LABS: Reflex Troponin-HS? (from REC) Y
== END 2022-01-24 16:44 | disposition home or self-care (01) ==
PROVIDERS: Emergency Provider Emergency Medicine; PCP Family Medicine; Visit Provider Emergency Medicine
DX: R30.0 Dysuria (principal); I13.0 Hypertensive heart and chronic kidney disease with heart failure and stage 1 through stage 4 chronic kidney disease, or unspecified chronic kidney disease; I42.8 Other cardiomyopathies; I27.21 Secondary pulmonary arterial hypertension; I50.42 Chronic combined systolic (congestive) and diastolic (congestive) heart failure; E11.22 Type 2 diabetes mellitus with diabetic chronic kidney disease; I48.0 Paroxysmal atrial fibrillation; Z79.4 Long term (current) use of insulin; N18.30 Chronic kidney disease, stage 3 unspecified; R06.00 Dyspnea, unspecified; Z86.73 Personal history of transient ischemic attack (TIA), and cerebral infarction without residual deficits; I25.2 Old myocardial infarction; E78.5 Hyperlipidemia, unspecified; G89.29 Other chronic pain; K21.9 Gastro-esophageal reflux disease without esophagitis; E66.9 Obesity, unspecified; Z79.82 Long term (current) use of aspirin; Z79.899 Other long term (current) drug therapy; Z79.01 Long term (current) use of 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s; Z68.32 Body mass index [BMI] 32.0-32.9, adult; M79.604 Pain in right leg
CPT/HCPCS: 71045; 80048; 81001; 81002; 84484; 85025; 85379; 87086; 87088; 93005; 99284; A4216

== ENCOUNTER 2022-01-24 15:39 | Outpatient (RCR) | payer MEDICARE, SELFPAY ==
[2022-01-24 16:34] LABS: Color, Urine Yellow (Yellow); Glucose, Dipstick Normal (Normal); Ketone-Dipstick Negative (Negative); Leukocyte Esterase-Dipstick 25 /ul (Negative); Nitrite-Dipstick Negative (Negative); Occult Blood-Urine Negative /ul (Negative); Protein-Dipstick 15 mg/dl (Negative); Urine Bilirubin Dipstick Negative (Negative); Urine Clarity Clear (Clear); Urine Urobilinogen Normal (Normal)
== END 2022-01-24 18:00 | disposition home or self-care (01) ==
LOC: HHLAB 15:39
PROVIDERS: PCP Family Medicine; Visit Provider Family Medicine
DX: R30.0 Dysuria (principal)
CPT/HCPCS: 81002; 87086; 87088

== ENCOUNTER → 2022-02-12 | Outpatient (CLI) | payer MEDICARE, SELFPAY ==
[2022-02-12 12:40] LABS: Absolute Lymphocyte Count 0.64 X10^3/uL (0.83-4.51); Absolute Neutrophil Count 5.3 X10^3/uL (2.0-7.7); Basophil# 0.03 X10^3/uL; Basophil% 0.4 % (0-1); Eosinophil# 0.21 X10^3/uL; Hematocrit 28.4 % (40-54); Hemoglobin 9.1 g/dL (13.0-16.5); Lymphocyte # 0.64 X10^3/ul (0.83-4.51); Lymphocyte % 9.2 % (19-41); Mean Corpuscular Hgb 30.3 pg (27.0-32.0); Mean Corpuscular Volume 94.7 fL (80-94); Mean Platelet Vol. 11.5 fl (6.2-12.0); Monocyte# 0.79 X10^3/uL; Monocyte% 11.3 % (0-10); NRBC Flagged by Analyzer 0 % (0-5); Neutrophil # 5.26 X10^3/uL (2.7-7.7); Neutrophil % 75.5 % (47-70); Platelet Count 217 K/mm3 (150-450); RBC Distribution Width CV 14.2 % (11.6-14.6); RBC Distribution Width SD 48.6 fl (35.1-43.9)
[2022-02-12 13:08] LABS: Anion Gap 5 (5-15); BUN 35 mg/dL (7-18); BUN/Creat Ratio 17.2 RATIO (10-20); Chloride 108 mmol/L (98-107); Creatinine, Serum 2.04 mg/dL (0.70-1.30); EST Glomerular Filtration Rate 34 mL/min (>60); Est Glom Filt Rate - Afr Amer 42 mL/min (>60); Glucose 112 mg/dL (74-106); Magnesium 2.1 mg/dL (1.6-2.6); Potassium 3.9 mmol/L (3.5-5.1); Sodium Level 141 mmol/L (136-145)
[2022-02-12 13:09] LABS: BNP,B-Type NATRIURETIC PEPTIDE 163.2 pg/mL (0-100)
== END | disposition home or self-care (01) ==
LOC: LAB 12:22
PROVIDERS: PCP Family Medicine; Referring Provider Nurse Practitioner Gerontology; Visit Provider Nurse Practitioner Gerontology
DX: R06.00 Dyspnea, unspecified (principal)
CPT/HCPCS: 36415; 80048; 83735; 83880; 85025

== ENCOUNTER 2022-02-25 16:08 | Emergency (ER) | payer MEDICARE, SELFPAY ==
[2022-02-25 16:09] VITALS: BP 122/80; PULSE 80; RESP 16; TEMP 36.8; O2SAT 99; BMI 35.7
--- NOTE | 2022-02-25 16:32 | EDS_ITS ---
HPI History of Present Illness Chief Complaint: Palpitations Narrative Narrative: 32-year-old male with history of paroxysmal A. fib presenting with sensation of palpitations. He states he has been tracking his heart rate on his phone is not had a heart rate greater than 120. He states that he had palpitations around 8 this morning and lasted a few minutes. He states that his arms felt heavy while he was having palpitations but he did not have any chest heaviness or tightness. Patient states he had another one about 230 that was very similar. Patient states that he has chronic shortness of breath which is unchanged. He is anticoagulated on Eliquis. No black or bloody stools. Patient takes carvedilol for his A. fib. Has been no med changes as far as his A. fib. Patient does state that he supposed to be started on some anxiety medicine however [facility] does not have this. They are waiting to get this filled. [facility] Medical History Acute on chronic combined systolic (congestive) and diastolic (congestive) heart failure (02/02/20) Acute right MCA stroke Anemia Cerebral artery occlusion with cerebral infarction Chronic combined systolic and diastolic CHF (congestive heart failure) Chronic low back pain CKD (chronic kidney disease), stage III CVA (cerebral vascular accident) (12/2017) Diabetes mellitus type 1.5, managed as type 1 Essential (primary) hypertension GERD (gastroesophageal reflux disease) History of iron deficiency History of non-ST elevation myocardial infarction (NSTEMI) (02/02/20) Hyperlipidemia 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 (LBBB) long-term current use of 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 Longstanding persistent atrial fibrillation Non-ischemic cardiomyopathy NSVT (nonsustained ventricular tachycardia) Obesity Osteoarthritis Paroxysmal atrial fibrillation Secondary pulmonary arterial hypertension TIA (transient ischemic attack) (12/2017) Home Medications acetaminophen 500 mg tablet 1,000 mg PO 2100 #0 tabs 01/06/22 [Rx Last Taken Unknown] amlodipine 10 mg tablet 10 mg PO DAILY BLOOD PRESSURE 01/06/22 [History Last Taken 12/14/21 10:00] apixaban 5 mg tablet (Eliquis) 5 mg PO BID #60 tabs 01/06/22 [Rx Last Taken Unknown] ascorbic acid (vitamin C) 500 mg tablet 1,000 mg PO LUNCH #0 tabs 01/06/22 [Rx Last Taken Unknown] atorvastatin 80 mg tablet 80 mg PO QHS CHOLESTEROL 01/06/22 [History Last Taken 12/13/21 22:00] carvedilol 25 mg tablet 25 mg PO BID heart #180 tabs 01/06/22 [Rx Last Taken Unknown] fenofibrate 54 mg tablet 54 mg PO DAILY #30 tabs 01/06/22 [Rx Last Taken Unknown] ferrous sulfate 325 mg (65 mg iron) tablet 325 mg PO DAILY supplement #30 tabs 01/06/22 [Rx Last Taken 02/02/20] insulin aspart U-100 100 unit/mL (3 mL) subcutaneous pen See Rx Instructions .Route .COMPLEX diabetes #15 mL 01/06/22 [Rx Last Taken 02/02/20] magnesium chloride 64 mg (magnesium chloride) tablet,delayed release (Mag 64) 128 mg PO DAILY #60 tabs 01/06/22 [Rx Last Taken Unknown] sertraline 50 mg tablet 50 mg PO DAILY #30 tabs 01/06/22 [Rx Last Taken Unknown] docusate sodium 100 mg capsule 100 mg PO DAILY PRN 02/12/22 [History Last Taken Unknown] furosemide 40 mg tablet 40 mg PO DAILY Check with primary doctor 02/12/22 [History Last Taken Unknown] insulin glargine 100 unit/mL (3 mL) subcutaneous pen See Rx Instructions .Route .COMPLEX diabetes 02/12/22 [History Last Taken Unknown] multivitamin (Daily Multi-Vitamin) 1 tab PO DAILY 02/12/22 [History Last Taken Unknown] quinapril 10 mg tablet 10 mg PO DAILY 02/12/22 [History Last Taken Unknown] tamsulosin 0.4 mg capsule 0.4 mg PO BID 02/12/22 [History Last Taken Unknown] aspirin 81 mg capsule 81 mg PO DAILY 02/25/22 [History Last Taken Unknown] buspirone 15 mg tablet 7.5 mg PO BID 02/25/22 [History Last Taken Unknown] diclofenac sodium 1 % topical gel 1 ea topical TID 02/25/22 [History Last Taken Unknown] omeprazole 20 mg capsule,delayed release 40 mg PO DAILY gerd 02/25/22 [History Last Taken Unknown] zonisamide 25 mg capsule (Zonegran) 25 mg PO DAILY 02/25/22 [History Last Taken Unknown] Allergy/AdvReac Type Severity Reaction Status Date / Time rofecoxib Allergy Hives Verified 02/25/22 16:11 Family History Mother Heart disease Sister Heart disease Myocardial infarction CVA (cerebral vascular accident) Diabetes Brother CVA (cerebral vascular accident) Surgical History History of back surgery History of knee replacement, total Social History Smoking Status: Never smoker alcohol intake: current alcohol intake frequency: holidays/special occasions only Alcohol type: beer substance use type: does not use caffeine: Yes Type: coffee Number of servings: 2 ROS ROS ED Review of Systems ROS Unobtainable: Denies due to encephalopathy Constitutional Constitutional ED: Denies chills or fever(s) Eyes Eyes: Denies blurry vision or change in vision ENT ENT ED: Denies rhinorrhea Cardiovascular Cardiovascular: Reports palpitations and racing heartbeat; Denies chest pain Respiratory/Chest Respiratory/Chest: Reports dyspnea; Denies cough Gastrointestinal Gastrointestinal: Denies abdominal pain, constipation or diarrhea Genitourinary Genitourinary ED: Denies dysuria or hematuria Musculoskeletal Musculoskeletal: Denies arthralgias or back pain Integumentary Denies abscess Neurologic Neurologic: Denies headache(s) Psychiatric Psychiatric: Denies suicidal ideation or suicidal thoughts EXAM Physical Exam Const Vital Signs: 02/25/22 16:09 02/25/22 16:14 02/25/22 16:44 Temperature 98.2 F Temperature Source Temporal Pulse Rate 80 Respiratory Rate 16 Respiratory Effort Normal Non-Labored Respiratory Pattern Tachypnea Blood Pressure 122/80 H Blood Pressure Mean 94 Pulse Ox 99 99 Oxygen Delivery Method Room Air Room Air 02/25/22 17:24 Temperature Temperature Source Pulse Rate 71 Respiratory Rate 20 H Respiratory Effort Respiratory Pattern Blood Pressure 131/73 H Blood Pressure Mean 92 Pulse Ox 97 Oxygen Delivery Method Room Air Positive well nourished HEENT Reports moist mucous membranes Eyes PERRL and EOMs intact bilaterally Resp normal respiratory effort and clear to auscultation bilaterally Cardio regular rate Rhythm: abnormal rhythm irregularly irregular Neuro oriented x3 Sensorium / Orientation: alert Skin no rashes or lesions noted MDM MDM MDM Narrative Medical decision making narrative: Patient presenting with symptoms of palpitations although he has his monitor set from anywhere to 48 120 in it has not alarmed. He has not had a fast heart rate all day. He does have paroxysmal A. fib but after reading through Dr. Harvey's notes it looks like its been more persistent. Patient is anticoagulated. I obtained and interpreted an EKG which shows atrial fibrillation at a rate of 73 bpm with no signs of ischemic change. Chest x-ray on my interpretation shows no acute cardiopulmonary process and the radiologist agree. CBC is at baseline. Creatinine slightly increased to 2.37 today. His high-sensitivity troponin is elevated at 158 however this is continually trending down from previous. Patient was counseled that likely his symptoms are from his anxiety which he has been to being treated for for the last couple of days. He requests that is undecided for he goes home however we do not have this in the formulary. He is not able to pick this up this weekend but is able to get it tomorrow. Impression: 1. Palpitations 2. Chronic kidney disease 3. Elevated troponin Lab Data Labs: Laboratory Results - last 24 hr 02/25/22 02/25/22 16:20 16:20 WBC 7.3 RBC 3.18 L Hgb 9.5 L Hct 29.4 L MCV 92.5 MCH 29.9 MCHC 32.3 RDW Std Deviation 46.0 H RDW Coeff of Whitney 13.4 Plt Count 242 MPV 11.7 Immature Gran % (Auto) 0.400 Neut % (Auto) 71.8 H Lymph % (Auto) 10.6 L [place] % (Auto) 11.7 H Eos % (Auto) 5.0 Baso % (Auto) 0.5 Absolute Neuts (auto) 5.3 Absolute Lymphs (auto) 0.78 L Nucleated RBC % 0 Sodium 141 Potassium 3.9 Chloride 108 H Carbon Dioxide 27.0 Anion Gap 6 BUN 40 H Creatinine 2.37 H Estim Creat Clear Calc 27.26 Est GFR (MDRD) Af Amer 35 L Est GFR (MDRD) Non-Af 29 L BUN/Creatinine Ratio 16.9 Glucose 67 L Calcium 9.4 Magnesium 2.4 Troponin I High Sens 158 H* Radiography Diagnostic Testing: Clinical Impression(s) from Imaging Studies Chest X-Ray 02/25/22 16:45 IMPRESSION: No active disease. Electronically Signed: Fausto Nguyen MD at 17:07 EDT , Discharge Plan Triage Chief Complaint: Palpitations ED Provider: Vu Bobby Dx/Rx/DC Orders Instructions: ED Palpitations Prescriptions: No Action multivitamin [Daily Multi-Vitamin] Tablet 1 tab PO DAILY quinapril 10 mg tablet 10 mg PO DAILY furosemide 40 mg tablet 40 mg PO DAILY tamsulosin 0.4 mg capsule 0.4 mg PO BID Rx Instructions: Take daily with supper docusate sodium 100 mg capsule 100 mg PO DAILY PRN insulin glargine 100 unit/mL (3 mL) insulin pen See Rx Instructions .ROUTE .COMPLEX Rx Instructions: 40 units in AM 16 units at bedtime fenofibrate 54 mg tablet 54 mg PO DAILY Qty: 30 0RF acetaminophen 500 mg Tablet 1,000 mg PO 2100 Qty: 0 0RF ascorbic acid (vitamin C) 500 mg Tablet 1,000 mg PO LUNCH Qty: 0 0RF Rx Instructions: ALWAYS take with the iron supplement and a meal Mag 64 64 mg Tablet,Delayed Release (Dr/Ec) 128 mg PO DAILY Qty: 60 0RF sertraline 50 mg Tablet 50 mg PO DAILY Qty: 30 0RF Eliquis 5 mg Tablet 5 mg PO BID Qty: 60 0RF amlodipine 10 mg Tablet 10 mg PO DAILY atorvastatin 80 mg Tablet 80 mg PO QHS carvedilol 25 mg tablet 25 mg PO BID Qty: 180 3RF ferrous sulfate 325 mg (65 mg iron) tablet 325 mg PO DAILY Qty: 30 0RF Rx Instructions: Take with a meal and with Vitamin C once a day. insulin aspart U-100 100 UNITS/ML insulin pen See Rx Instructions .ROUTE .COMPLEX Qty: 15 0RF Rx Instructions: 10 units with breakfast 12 units with lunch 18 units with supper buspirone [BuSpar] 15 mg Tablet 7.5 mg PO BID Rx Instructions: 1/2 TAB BID FOR 2 WEEKS THEN 1 TAB BID zonisamide [Zonegran] 25 mg Capsule 25 mg PO DAILY diclofenac sodium 1 % Gel 1 ea TOPICAL TID aspirin 81 mg Capsule 81 mg PO DAILY omeprazole 20 mg capsule,delayed release(DR/EC) 40 mg PO DAILY Primary Care Provider: Lester Jarvis Referrals: Lester Jarvis MD [Primary Care Provider] - Disposition Disposition: Home, Self Care
--- NOTE | 2022-02-25 16:35 | EKG12_ITS ---
Test Reason : AFIB Blood Pressure : / mmHG Vent. Rate : 073 BPM Atrial Rate : 104 BPM P-R Int : 000 ms QRS Dur : 132 ms QT Int : 424 ms P-R-T Axes : 000 -46 096 degrees QTc Int : 467 ms Atrial fibrillation Left axis deviation Non-specific intra-ventricular conduction block T wave abnormality, consider lateral ischemia Abnormal ECG Confirmed by STARLA BESS, SUNDEEP ([id number]), legal editor VON TOWNSEND ([id number]) on 02/26/2022 10:16:58 AM Referred By: HEATHER Confirmed By:SUNDEEP CHA MD
[2022-02-25 16:44] VITALS: O2SAT 99
--- NOTE | 2022-02-25 16:45 | RAD_ITS ---
STUDY: X-RAY CHEST REASON FOR EXAM: Male, 72 years old. chest pain TECHNIQUE: Single AP portable view of the chest. COMPARISON: 01/24/2022 FINDINGS: Dorsal column spinal stimulator in the midthoracic spine. The lungs are clear and expanded. There is no demonstrated pleural abnormality. There is moderate cardiac enlargement. Normal mediastinum and daniel. Normal visualized pulmonary arteries. Normal visualized aortic arch and descending thoracic aorta. Normal visualized thoracic spine. Normal visualized ribs, clavicles, and shoulders. There is no demonstrated abnormality of the visualized soft tissue structures of the upper abdomen. RAD/Chest 1 View (Portable) IMPRESSION: No active disease. Electronically Signed: Fausto Nguyen MD at 17:07 EDT ,
[2022-02-25 16:52] LABS: Absolute Lymphocyte Count 0.78 X10^3/uL (0.83-4.51); Absolute Neutrophil Count 5.3 X10^3/uL (2.0-7.7); Basophil# 0.04 X10^3/uL; Basophil% 0.5 % (0-1); Eosinophil# 0.37 X10^3/uL; Hematocrit 29.4 % (40-54); Hemoglobin 9.5 g/dL (13.0-16.5); Lymphocyte # 0.78 X10^3/ul (0.83-4.51); Lymphocyte % 10.6 % (19-41); Mean Corp Hgb Conc 32.3 g/dL (32-36); Mean Corpuscular Hgb 29.9 pg (27.0-32.0); Mean Corpuscular Volume 92.5 fL (80-94); Mean Platelet Vol. 11.7 fl (6.2-12.0); Monocyte# 0.86 X10^3/uL; Monocyte% 11.7 % (0-10); NRBC Flagged by Analyzer 0 % (0-5); Neutrophil # 5.26 X10^3/uL (2.7-7.7); Neutrophil % 71.8 % (47-70); Platelet Count 242 K/mm3 (150-450); RBC Distribution Width CV 13.4 % (11.6-14.6); Red Blood Count 3.18 M/mm3 (4.6-6.2); White Blood Count 7.3 K/mm3 (4.4-11.0)
[2022-02-25 17:24] VITALS: BP 131/73; PULSE 71; RESP 20; O2SAT 97
[2022-02-25 17:32] LABS: Anion Gap 6 (5-15); BUN 40 mg/dL (7-18); BUN/Creat Ratio 16.9 RATIO (10-20); Calcium,Total 9.4 mg/dL (8.5-10.1); Chloride 108 mmol/L (98-107); Creatinine, Serum 2.37 mg/dL (0.70-1.30); EST Glomerular Filtration Rate 29 mL/min (>60); Est Glom Filt Rate - Afr Amer 35 mL/min (>60); Estimated Creatinine Clearance 27.26 ml/min; Glucose 67 mg/dL (74-106); Magnesium 2.4 mg/dL (1.6-2.6); Potassium 3.9 mmol/L (3.5-5.1); Sodium Level 141 mmol/L (136-145); Troponin-I HS (w/2H Reflex) 158 pg/mL (3.0-78.0)
[2022-02-25 18:44] LABS: Reflex Troponin-HS? (from REC) Y
[2022-02-25 18:53] VITALS: BP 152/97; PULSE 64; RESP 18; O2SAT 98
== END 2022-02-25 18:56 | disposition home or self-care (01) ==
PROVIDERS: Emergency Provider Student in an Organized Health Care Education/Training Program; PCP Family Medicine; Visit Provider Student in an Organized Health Care Education/Training Program
DX: I48.11 Longstanding persistent atrial fibrillation (principal); I50.43 Acute on chronic combined systolic (congestive) and diastolic (congestive) heart failure; I13.0 Hypertensive heart and chronic kidney disease with heart failure and stage 1 through stage 4 chronic kidney disease, or unspecified chronic kidney disease; E11.22 Type 2 diabetes mellitus with diabetic chronic kidney disease; Z79.4 Long term (current) use of insulin; N18.30 Chronic kidney disease, stage 3 unspecified; I25.2 Old myocardial infarction; F41.9 Anxiety disorder, unspecified; E78.5 Hyperlipidemia, unspecified; E66.9 Obesity, unspecified; R77.8 Other specified abnormalities of plasma proteins; Z68.35 Body mass index [BMI] 35.0-35.9, adult; Z79.01 Long term (current) use of 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s; Z79.82 Long term (current) use of aspirin; Z79.899 Other long term (current) drug therapy; Z86.73 Personal history of transient ischemic attack (TIA), and cerebral infarction without residual deficits
CPT/HCPCS: 71045; 80048; 83735; 84484; 85025; 93005; 99283; A4216

== ENCOUNTER → 2022-03-02 | Outpatient (CLI) | payer MEDICARE, SELFPAY ==
[2022-03-02 18:15] LABS: Anion Gap 7 (5-15); BUN 41 mg/dL (7-18); BUN/Creat Ratio 18.7 RATIO (10-20); Calcium,Total 9.6 mg/dL (8.5-10.1); Chloride 107 mmol/L (98-107); Creatinine, Serum 2.19 mg/dL (0.70-1.30); EST Glomerular Filtration Rate 32 mL/min (>60); Est Glom Filt Rate - Afr Amer 38 mL/min (>60); Glucose 43 mg/dL (74-106); Magnesium 2.2 mg/dL (1.6-2.6); Potassium 3.9 mmol/L (3.5-5.1); Sodium Level 142 mmol/L (136-145)
== END | disposition home or self-care (01) ==
LOC: MTLAB 15:09
PROVIDERS: PCP Family Medicine; Referring Provider Nurse Practitioner Adult Health; Visit Provider Nurse Practitioner Adult Health
DX: N18.4 Chronic kidney disease, stage 4 (severe) (principal); E83.42 Hypomagnesemia
CPT/HCPCS: 36415; 80048; 83735

== ENCOUNTER → 2022-03-06 | Outpatient (CLI) | payer MEDICARE, SELFPAY ==
[2022-03-06 12:39] LABS: Hematocrit 31.1 % (40-54); Hemoglobin 9.9 g/dL (13.0-16.5); Mean Corp Hgb Conc 31.8 g/dL (32-36); Mean Corpuscular Hgb 29.9 pg (27.0-32.0); Mean Platelet Vol. 11.8 fl (6.2-12.0); Platelet Count 232 K/mm3 (150-450); RBC Distribution Width CV 13.8 % (11.6-14.6); Red Blood Count 3.31 M/mm3 (4.6-6.2); White Blood Count 7.9 K/mm3 (4.4-11.0)
[2022-03-06 12:52] LABS: Anion Gap 7 (5-15); BUN 40 mg/dL (7-18); BUN/Creat Ratio 17.1 RATIO (10-20); Calcium,Total 9.6 mg/dL (8.5-10.1); Chloride 109 mmol/L (98-107); Creatinine, Serum 2.34 mg/dL (0.70-1.30); EST Glomerular Filtration Rate 29 mL/min (>60); Est Glom Filt Rate - Afr Amer 35 mL/min (>60); Glucose 83 mg/dL (74-106); Potassium 4.5 mmol/L (3.5-5.1); Sodium Level 142 mmol/L (136-145)
[2022-03-06 13:07] LABS: BNP,B-Type NATRIURETIC PEPTIDE 140.5 pg/mL (0-100)
== END | disposition home or self-care (01) ==
PROVIDERS: PCP Family Medicine; Referring Provider Nurse Practitioner Gerontology; Visit Provider Nurse Practitioner Gerontology
DX: I48.0 Paroxysmal atrial fibrillation (principal); N18.32 Chronic kidney disease, stage 3b; R06.02 Shortness of breath; D64.9 Anemia, unspecified
CPT/HCPCS: 36415; 80048; 83880; 85027; 97110

== ENCOUNTER 2022-03-15 10:30 | Outpatient (RCR) | payer MEDICARE, SELFPAY ==
--- NOTE | 2022-02-13 10:09 | HP.PTEVAL ---
Patient's Visit Information VIVI SAINI is a 72 year old M referred to Physical Therapy by Dr. Lester Jarvis MD with a diagnosis of L sided neglect, L hemiparesis, CVA. Date of Evaluation: 02/13/22 Physical Therapist: ALVARO Lemon - Visit Plan Frequency: 2-3x /Week Duration: 2 Months Plan: 2-3X/ week for 6-8 weeks for gait training (increase stride on the L, upright posture, increase hip extension) to increase strength and hopefully progress to less restrictive device, CORE strength, LE strength, functional strength, endurance, balance with HEP. - Subjective Pt had a stroke December 05. He went to the bathroom and (has B TKR) and his leg gave out and he laid there from 8:30-1:00 and then they took him into hospital and life flighted to [place] and did surgery and took out the clot and then [facility] and has been doing home therapy since then. He is having trouble on the L side of his body and cant see well out of his L eye. He can see but it does not see things on the L hand side. He is afraid to run into something on the L hand side. His L leg is weak and arm also. He still drags his L leg when he gets tired. No one has mentioned an AFO to him.. He has a wedge in his R shoe due to r leg being shorter than the L leg. He has 5 steps into the house with 2 railings. He has no trouble up and down the steps and goes recip with 2 hand rails. Getting in and out of the car unless he is tired and the he struggles with lifting his legs up to get into the car. He has been using the walker just since the stroke and he has a cane that he walks with at home sometimes. reports that his balance is not good especially when he walks with a cane. He feels that his balance is good. He has had no falls. He is still doing his home PT at home. Patients foal of PT... he would like to get stronger and get more balance and would like to start using the cane. - Pain back pain Pain Intensity (Out of 10): 4 - Objective Gait: Walks with a front wheeled walker with decreased swing on the L LE, occ L foot catch on the ground, WBOS, flexed trunk, heavy arms on the walker, increase SOB... harder time seeing things on the L side. Also decrease B hip ext with gait. Gait with a quad cane: CGA to min A with Quad cane. VERY SOB, increase legs shaky. LE MMT: Rhip flex 4-/5 and L 3+/5, R knee ext 4/5 and L 4-/5, R knee flex 4/5 and L 4-/5, DF R 4+/5 and L 3-/5, seated hip abd R 4/5 and L 3+/5, hip ext NT but he struggles with hip ext with gait. TIght gastroc on the L. Sit to stand: Pt is able to get up using B UE's. Standing balance: Initial standing balance is a little wobbly with WBOS - Balance/Special Test Scores Lower Extremity Functional Score: 9 - Goals Goal 1:: I HEP Goal Time Frame: 4-6 Weeks Goal 2:: Be able to walk with least restrictive with upright posture, good stride length, heel to toe gait pattern with SBA 150 feet plus Goal Time Frame: 4-6 Weeks Goal 3:: Be able to sit to stand with 1 hand assist with fully erect posture and glut activation X 10 in a row and minimal SOB Goal Time Frame: 4-6 Weeks Goal 4:: Up and down steps recip with 2 hand rails without having to pull self up the steps Goal Time Frame: 4-6 Weeks - Rehabilitation Potential Rehabilitation Potential: Good - Anticipated Interventions Patient/Client Instruction: Educate patient on: Condition, Plan of Care For the Purpose of:: To increase ROM, To improve nutrient delivery to tissue, To increase oxygenation perfusion, To improve muscle performance and motor function, To improve ability to perform ADL's, To increase tolerance to activity/condition/position, To improve performance and independence with ADL's, To decrease level of supervision to perform tasks, To improve ability of physical actions for home/community/work/leisure, To improve gait and locomotor functions, To improve health of tissue, To decrease soft tissue restriction, To increase flexibility/ROM, To improve balance, To improve safety with gait Therapeutic Exercise to Include: Strength training, Endurance training, Balance training, Coordination, Postural training, Flexibilty training, Gait and locomotor training, Neuromotor development, Active ROM, Dynamic Lumbar Stabilization For the Purpose of:: To decrease pain, To increase ROM, To improve nutrient delivery to tissue, To increase oxygenation perfusion, To improve ability to perform ADL's, To increase tolerance to activity/condition/position, To improve performance and independence with ADL's, To decrease level of supervision to perform tasks, To improve ability of physical actions for home/community/work/leisure, To improve gait and locomotor functions, To improve health of tissue, To decrease soft tissue restriction, To increase flexibility/ROM, To improve endurance, To improve balance, To improve safety with gait Functional Training to Include: Gait training For the Purpose of:: To improve gait and locomotor functions, To improve safety with gait Manual Therapy Techniques to Include: Passive ROM For the Purpose of:: To increase flexibility/ROM Thank you for the opportunity to evaluate your patient. For Medicare and Medicare HMO plans, please review the plan of care and approve it. It will need to be FAXED BACK to us at [phone] for Medicare purposes. For Medicare only, by signing this I certify the plan of care. Please let me know if there are questions or concerns regarding this plan of care. Physician Signature: Date:
--- NOTE | 2022-02-15 07:16 | HP.OTEVAL ---
Patient's Visit Information VIVI SAINI is a 72 year old M, referred to Occupational Therapy by Dr. 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 Date of Evaluation: 02/13/22 Occupational Therapist: Yanet Shi, OTR/L, CHT - Subjective Pt. is a 72 y/o male who was referred to OT services for R CVA, l hemiparesis. December 05, 2021 went to hospital ER life flight to [place] then went to 4th floor rehab January 07 discharged then home therapy (PT, OT, ST). Now here for out-pt. therapy. Retired from [employer]. Pt. reported he has a bad back & bad knees. Pt. 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 Pt. walked to therapy room using ww (posture forward flexed). Magaly is present. Pt. would like to return to [facility]. - ADLs Comments: no difficulty Comments: no difficulty Comments: completes, can complete a simple meal prep. Comments: completes yard work Comments: wears wedge in R shoe for leg length discrepancy. Torn rotator cuff on L shoulder. shower chair that glides, comfort height commode with rails, ww. assists with donning compression socks, pt. reporting he can do the regular socks. 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 R handed. sleeps 3-4 hours wakes up because of bathroom or because he gets cold, just thinking about stuff (anxiety). on Lasix has to use bathroom frequently. reported that pt. used to do all the cooking and cleaning. Last time he cooked it took 2 hours to clean up. Unable to vacuum secondary to using ww. Pt. used restroom at Mod I level during therapy session. - Pain Back 3 Pain Intensity Range: 6 - Objective Pt. & have voiced concerns of pt. having increased anxiety, which causes pt. to constantly ask questions, question her about meds, schedule, time to leave house. He wakes up early then wakes up to start talking to about things he is thinking about. S/OT suggested visual daily calendar and alarms for med times or leaving the house times. - ROM Shoulder: L 90 R 135 Elbow: L 120* R 130 Forearm: L 60* R 70* Wrist: B WFL ROM Comments: Kapandji opposition scale on both hands 9 - Strength Shoulder: R 22.6# L 23.4# Elbow: R 17.8# L 19.6# Maintenance Groundman: R 60# L 45# Lateral Pinch: R 18# L 18# Tripod Pinch: R 12# L 10# Tip-to-Tip Pinch: R 10# L 12# Strength Comments: R hand dominant. - Sensation Sensation Comments: pt. reported he has not have any deficits with sensation - Nine Hole Peg Right: 45 seconds Left: 56 seconds Comments: slower time due to cognition and L visual neglect. - Quick DASH-Disab of Arm,Shoulder& Hand Quick DASH Score: [phone] - Goals Goal:: Pt. 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 Pt. to improve with L tripod pinch (from 10# to 12#) to improve with independence with FM tasks (zippers/buttons) by dc. Goal:: pt. to report improved bilateral hand coordination for independence with kitchen and laundry tasks by dc. Goal:: Pt. to increase B visual motor integration by improving on 9-hole peg test to 30 seconds on each hand for improved independence with kitchen tasks by dc. Goal:: Pt. to report indep with simple meal prep and cleanup by dc. Goal:: Pt. to report using memory cues for agenda vs. asking for daily schedule 4/5 days by dc. Goal:: Pt. to report improved visual awareness/attention to left when completing IADL tasks to increase independence with cooking by dc. - Rehabilitation General Assessment: Pt. was referred by Dr. Jarvis for OT evaluation secondary to cerebrovascular accident embolism of R middle cerebral artery, ilan neglect of left side, left hemiparesis. Stroke was on December 05, 2021 (10 weeks ago). He has L visual neglect. Educated pt. and on what to expect with OT services. Pt. has decreased independence with IADL tasks and would benefit from skilled OT services 2x a week for 6 weeks to improve functional tasks at home. Pt. & demo'd understanding & agreeable to POC. therapy session was directly supervised and doc. reviewed and approved by Yanet Shi OTR/L,CHT. Rehabilitation Potential: Good - Anticipated Interventions A/AAROM/PROM, Strengthening, Joint Protection/Energy Conservation, Ergonomic Education, Fine Motor Coord/Joel, Neuro Reeducation, ADL Training, Education re assistive Equipment, Education re Diagnosis, Caregiver Training, Home Program Other Interventions: calming tech. for reducing anxiety. visual attention for L visual neglect - Visit Plan Frequency: 2x /Week Duration: 6 Weeks TEXT: Thank you for the opportunity to evaluate your patient. For Medicare and Medicare HMO plans, please review the plan of care and approve it. It will need to be FAXED BACK to us at [phone] for Medicare purposes. Please let me know if there are questions or concerns regarding this plan of care. Physician Signature: Date:
--- NOTE | 2022-03-02 16:25 | HP.SP.EVAL ---
History - History Date of Eval: 03/02/22 Medical Diagnosis (from RX): cognitive communication deficit (R41.841), aphasia Date of Onset of Diagnosis: December 05, 2021 Previous speech therapy: Yes Results: Discharging inpatient rehab speech therapist d/c summary: Following 3 weeks of intervention, Pt demonstrated continued significant progress in attending L w/ visual scanning tasks, requiring decreased cues and demonstrating improved accuracy across various therapeutic scanning tasks. He is able to read at multi-line/mulri-sentence level w/ min-mod cues. Cognitive processing speed and accuracy continues to improve. Divergent naming skills have improved. He has advanced from minced and moist textures with direct supervision to easy to chew with meats cut bite size / thin liquids with direct supervision, and most recently to regular textures, tolerating well, w/ staff/caregiver assist to cut into bite sized pieces only as needed/requested by patient and distant supervision. No appreciable pocketing and tolerating diet w/out overt s/s aspiration. Pt required continued ST intervention upon discharge for continued progress towards goals - executive functions, cognitive processing speed, L hemispatial inattention/neglect. Pt did not drive premorbidly, understands that returning to driving would be unsafe at this time, and does not plan to do so. Family training/education completed w/ patient's Magaly who will continue to manage household finances and set up meds/provide reminders to take meds as prescribed. Pt demonstrated mildly reduced metacognitive skills w/ decreased insight/awareness of severity of cognitive deficits s/p CVA. Pt self reports % better since admission to be 90%, although [employer] would rate % better more conservatively at 60-65% Other Relevant Medical History/Diagnoses/Surgery: VIVI SAINI is a 72 year old male who presents to [facility] on 03/02/22 s/p CVA. Pt discharged about 7 weeks ago from inpatient rehab at [facility] - see discharge note above. Pt accompanied today by his . Pt reporting following d/c from the hospital he also received home health speech therapy during that time where he worked on visual scanning and reading comprehension. Pt reporting severe memory deficits with Pt asking 4x about appt this afternoon with an hour or so. also reporting that Pt demonstrates word finding difficulties as well. Smoking Status: Never smoker Hx Smoking: No Hx Tobacco Use: No Hx Smoking Exposure: No - Pain Is pain an issue with your current prescribed condition?: No Patient Allergies - Allergies Allergies rofecoxib Allergy (Verified 02/25/22 16:11) Hives CLQT - CLQT CLQT Administered: Yes CLQT: Cognitive Linguistic Quick Test (CLQT) is a criterion - referenced assessment designed for adults between the ages of 18 and 89 with known or suspected neurological dysfuntions. The CLQT is to assess strength and weaknesses in five cognitive domains. Severity ratings are within normal limits, mild, moderate, severe deficits. The subtests are as follows: Date: 03/02/22 - Attention Attention: Mild - Memory Memory: WNL - Executive Functions Executive Functions: Moderate - Language Language: WNL - Visuospatial Skills Visuospatial Skills: Mild - Composite Severity Rating Composite Severity Rating: Mild - Clock Drawing Severity Rating Clock Drawing Severity Rating: WNL - CLQT Comments Additional Overall severity rating of the assessment per standardization is mild, however while observing Pt complete each task of the evaluation, this therapist would rate Pt's overall cognitive abilities as mild to moderate. During assessment Pt demonstrating mild L neglect during design generation and maze tasks --- Pt provided reading passage after the completion of CLQT where Pt demonstrate mod-severe L neglect and poor visual scanning skills. Will continue to assess. Although Pt scored WNL in the language domain, it was the last number of cutoff between WNL and Mild -- this therapist would rate Pt's language skills more conservatively at mild given caregiver report of Pt demonstrating word finding difficulties at home. Comparing scores to previous administration of this assessment, Pt making progress with symbol cancellation and clock drawing tasks. Previous administration 12/15/21 Administration -- cognitive domain scores unavailable. CRITERION SUBTEST SCORES. *Personal Facts (memory and language ability): 8/8 WNL (a score of 8 is considered WNL). *Symbol Cancellation (nonlinguistic task of visual attention and perception, integrity of the upper/lower quadrants of the left/right visual smith): 0/12 IMPAIRED (a score of 11-12 is considered WNL). *Confrontation Naming (aphasia, perseveration, verbosity): 10/10 WNL (a score of 10 is considered WNL). *Clock Drawing (screening of all cognitive domains): 4/13 IMPAIRED (a score of 12-13 is considered WNL). *Story Retelling (memory and comprehension, arousal, attention, storage capacity, narrative skills): 6/10 WNL (a score of 6-10 is considered WNL). *Symbol Trails (nonlinguistic task to assess planning, self-monitoring, working memory, and visual attention, and impulsivity): 1/10 IMPAIRED (a score of 9-10 is considered WNL). *Generative Naming (word retrieval skills, perseveration): 1/9 IMPAIRED (a score of 5-9 with a perseveration ratio is considered WNL). *Design Memory (nonlinguistic task to assess visual discrimination & analysis, attention, and visual memory, impulsivity, perseveration): 3/6 IMPAIRED (a score of 5-6 is considered WNL) Other - Other Qualitative Observations -: Throughout evaluation, [employer] observing Pt with perseverations during tasks, reduced problem solving skills, and reduced sustained attention. During conversations at the beginning of session, Pt observed to talk over [employer]BER, who was giving suggestions for altering home environment, via discussing a topic non-related. Pt with no awareness he was demonstrating poor attention to the target discussion topic. While completing tasks that were hard for him on the CLQT (e.g., mazes, trail making, design generation) Pt demonstrating difficulty fixing his mistakes - Pt would attempt via thinking through the task, however often abandoned it. Pt showing reduced flexibility with his thinking and planning to complete tasks. Plan - Plan Plan: Will recommend Pt for weekly outpatient speech therapy to address mild to moderate cognitive-linguistic impairment characterized by deficits in immediate and short-term memory, word retrieval, executive functioning, attention, problem solving/reasoning, and safety awareness. Pt would benefit from training in compensatory strategies for recall and word retrieval, as well as cognitive training to improve cognitive functioning. Without skilled ST services, the Pt is at risk for decreased independence completing daily living tasks which puts caregiver at risk for experiencing caregiver burn out and resentment. - Recommendations Treatment Warranted: Yes Treatment Warranted: Receptive/ Expressive Language, Cognition - Progress Prognosis: Good - Frequency Frequency: 2x /Week Duration: 2 Months - Patient/Family Goal Patient/Family Goal: Pt demonstrating difficulty answering personal goal question re: what he would like to accomplish in speech therapy. reporting she would like him to work on word finding. - Goal #1-5 Goal #1: Alcides will complete complex sustained, alternating, selective, and divided attention tasks with 90% acc independently across 3 measured opportunities. Goal #2: Alcides will complete complex planning, organizing, and sequencing tasks with 90% acc independently across 3 measured opportunities. Goal #3: Alcides will complete basic to mod complex immediate, short-term, and working memory tasks with 90% acc independently across 3 measured opportunities. Goal #4: Alcides will generate a monologue from a prompt (e.g., ?tell me about the pros and cons of living in [place]?) with 5 or more sentences at 80% accuracy given frequent maximum verbal and frequent maximum phonemic cues. Education - Patient has Indicated that the Following Identified Educational Needs: None The Patient has indicated that they have no educational or learning abilities that may effect their care.: Yes - Patient Instruction Patient Education: Diagnosis, Treatment Plan, Goals Person Taught: Patient, Family Teaching Method: Discussion, Demonstration Response to teaching: Return demonstration, Verbalize understanding
--- NOTE | 2022-06-04 11:01 | HP.PTDCNRP_ITS ---
VIVI SAINI was seen in my office for initial evaluation on 02/13/22. The following Plan of Care was established for this patient: Initial Frequency: 2-3x /Week Initial Duration: 2 Months Patient/Client Instruction: Educate patient on: Condition, Plan of Care For the Purpose of:: To increase ROM, To improve nutrient delivery to tissue, To increase oxygenation perfusion, To improve muscle performance and motor function, To improve ability to perform ADL's, To increase tolerance to activity/condition/position, To improve performance and independence with ADL's, To decrease level of supervision to perform tasks, To improve ability of physical actions for home/community/work/leisure, To improve gait and locomotor functions, To improve health of tissue, To decrease soft tissue restriction, To increase flexibility/ROM, To improve balance, To improve safety with gait Therapeutic Exercise to Include: Strength training, Endurance training, Balance training, Coordination, Postural training, Flexibilty training, Gait and locomotor training, Neuromotor development, Active ROM, Dynamic Lumbar Stabilization For the Purpose of:: To decrease pain, To increase ROM, To improve nutrient delivery to tissue, To increase oxygenation perfusion, To improve ability to perform ADL's, To increase tolerance to activity/condition/position, To improve performance and independence with ADL's, To decrease level of supervision to perform tasks, To improve ability of physical actions for home/community/work/leisure, To improve gait and locomotor functions, To improve health of tissue, To decrease soft tissue restriction, To increase f lexibility/ROM, To improve endurance, To improve balance, To improve safety with gait Functional Training to Include: Gait training For the Purpose of:: To improve gait and locomotor functions, To improve safety with gait Manual Therapy Techniques to Include: Passive ROM For the Purpose of:: To increase flexibility/ROM This patient was last seen in our office 03/15/22. Pertinent comments regarding their Physical therapy will appear below: DC PT At this point I will be discontinuing this patient from physical therapy. I would be happy to see this patient again in the future if found appropriate by the physician. Thank you! Socorro Lynn, ALVARO Balance/Gait/Functional tests - Balance/Special Test Scores Lower Extremity Functional Score: 9
== END 2022-03-15 19:00 | disposition home or self-care (01) ==
LOC: PT 10:30
PROVIDERS: PCP Family Medicine; Referring Provider Family Medicine; Visit Provider Family Medicine
DX: I69.354 Hemiplegia and hemiparesis following cerebral infarction affecting left non-dominant side (principal); I69.320 Aphasia following cerebral infarction
CPT/HCPCS: 97110; 97129; 97130; 97162; 97166; 97530

== ENCOUNTER → 2022-03-15 | Outpatient (CLI) | payer MEDICARE, SELFPAY ==
[2022-03-15 15:31] LABS: Anion Gap 7 (5-15); BUN 39 mg/dL (7-18); BUN/Creat Ratio 17.5 RATIO (10-20); Calcium,Total 9.4 mg/dL (8.5-10.1); Chloride 107 mmol/L (98-107); Creatinine, Serum 2.23 mg/dL (0.70-1.30); EST Glomerular Filtration Rate 31 mL/min (>60); Est Glom Filt Rate - Afr Amer 37 mL/min (>60); Glucose 145 mg/dL (74-106); Potassium 4.3 mmol/L (3.5-5.1); Sodium Level 140 mmol/L (136-145)
== END | disposition home or self-care (01) ==
LOC: MTLAB 11:10
PROVIDERS: PCP Family Medicine; Referring Provider Nurse Practitioner Gerontology; Visit Provider Nurse Practitioner Gerontology
DX: R06.02 Shortness of breath (principal)
CPT/HCPCS: 80048

== ENCOUNTER → 2022-03-28 | Outpatient (CLI) | payer MEDICARE, SELFPAY ==
[2022-03-28 11:23] LABS: Absolute Lymphocyte Count 0.72 X10^3/uL (0.83-4.51); Absolute Neutrophil Count 6.5 X10^3/uL (2.0-7.7); Basophil# 0.06 X10^3/uL; Basophil% 0.7 % (0-1); Eosinophil# 0.45 X10^3/uL; Eosinophils% 5.1 % (0-5); Hemoglobin 10.6 g/dL (13.0-16.5); Lymphocyte # 0.72 X10^3/ul (0.83-4.51); Lymphocyte % 8.2 % (19-41); Mean Corp Hgb Conc 32.1 g/dL (32-36); Mean Corpuscular Volume 93.5 fL (80-94); Mean Platelet Vol. 12.1 fl (6.2-12.0); Monocyte# 1.02 X10^3/uL; Monocyte% 11.7 % (0-10); NRBC Flagged by Analyzer 0 % (0-5); Neutrophil # 6.46 X10^3/uL (2.7-7.7); Platelet Count 223 K/mm3 (150-450); RBC Distribution Width CV 13.3 % (11.6-14.6); RBC Distribution Width SD 45.5 fl (35.1-43.9); Red Blood Count 3.53 M/mm3 (4.6-6.2); White Blood Count 8.7 K/mm3 (4.4-11.0)
[2022-03-28 12:10] LABS: Anion Gap 6 (5-15); BUN 51 mg/dL (7-18); BUN/Creat Ratio 20.5 RATIO (10-20); Calcium,Total 9.6 mg/dL (8.5-10.1); Chloride 107 mmol/L (98-107); Creatinine, Serum 2.49 mg/dL (0.70-1.30); EST Glomerular Filtration Rate 27 mL/min (>60); Est Glom Filt Rate - Afr Amer 33 mL/min (>60); Glucose 118 mg/dL (74-106); Potassium 4.1 mmol/L (3.5-5.1); Sodium Level 142 mmol/L (136-145)
[2022-03-28 12:26] LABS: BNP,B-Type NATRIURETIC PEPTIDE 145.9 pg/mL (0-100)
== END | disposition home or self-care (01) ==
PROVIDERS: PCP Family Medicine; Referring Provider Nurse Practitioner Gerontology; Visit Provider Nurse Practitioner Gerontology
DX: R06.00 Dyspnea, unspecified (principal)
CPT/HCPCS: 36415; 80048; 83880; 85025

== ENCOUNTER 2022-04-06 10:20 | Outpatient (CLI) | payer MEDICARE, SELFPAY ==
[2022-04-06 12:23] LABS: BUN 47 mg/dL (7-18); Glucose 151 mg/dL (74-106)
[2022-04-06 12:24] LABS: Anion Gap 7 (5-15); BUN/Creat Ratio 18.8 RATIO (10-20); Calcium,Total 9.9 mg/dL (8.5-10.1); Chloride 106 mmol/L (98-107); EST Glomerular Filtration Rate 27 mL/min (>60); Est Glom Filt Rate - Afr Amer 33 mL/min (>60); Potassium 4.1 mmol/L (3.5-5.1); Sodium Level 140 mmol/L (136-145)
== END 2022-04-06 23:59 | disposition home or self-care (01) ==
LOC: MTLAB 10:21
PROVIDERS: PCP Family Medicine; Referring Provider Nurse Practitioner Gerontology; Visit Provider Nurse Practitioner Gerontology
DX: I48.19 Other persistent atrial fibrillation (principal)
CPT/HCPCS: 36415; 80048

== ENCOUNTER → 2022-04-18 | Outpatient (CLI) | payer MEDICARE, SELFPAY ==
--- NOTE | 2022-04-18 13:14 | STRESSREP ---
Stress Test Report Pharmacologic myocardial perfusion stress test. 72-year-old with a history of coronary disease. Stress protocol: Resting KG demonstrates sinus bradycardia with a rate of 60 bpm normal intervals are noted resting blood pressure is 128/80 mmHg. 0.4 mg of regadenoson was infused per usual protocol followed by rapid intravenous saline flush injection continuous EKG monitoring was performed. The maximum heart rate attained was 71 bpm which was 47% of max impacted heart rate the maximum workload was 1 metabolic equivalent. At rest there were no ST or T wave changes noted to suggest abnormal flow reserve and at peak infusion nonspecific ST changes were noted with did not denote any evidence of abnormal flow reserve. The resting blood pressure was 128/80 with a final blood pressure of 120/70 mmHg. Myocardial perfusion protocol. 14.6 mCi of technetium 99m sestamibi was injected at rest. 0.4 mg of regadenoson was infused per usual protocol. At peak infusion 44.8 mCi of technetium 99m sestamibi was injected stress images were obtained stress and rest images were reconstructed in comparing the short axis vertical long and horizontal long axis. Gated images were also obtained to Perfusion SPECT analysis: Review of the stress images demonstrate normal uptake of tracer noted in all areas of the myocardium. The resting images similar demonstrate normal uptake of tracer noted in all areas of the myocardium. No areas of reversibility are noted to suggest ischemia and no previous infarct is noted. Gated SPECT analysis: The gated ejection fraction is 57%. Conclusion: Normal pharmacologic myocardial perfusion stress test. Preserved ejection fraction.
== END | disposition home or self-care (01) ==
LOC: CVS 06:09
PROVIDERS: PCP Family Medicine; Referring Provider Nurse Practitioner Gerontology; Visit Provider Nurse Practitioner Gerontology
DX: R07.89 Other chest pain (principal)
CPT/HCPCS: 78452; 93017; A9500; A4216; J2785

== ENCOUNTER → 2022-04-23 | Outpatient (CLI) | payer MEDICARE, SELFPAY ==
--- NOTE | 2022-04-23 14:18 | NEURO_ITS ---
NCS and/or EMG Patient Report Ordering Doctor: Lester Jarvis DATE OF SERVICE: 04/23/22 Indication: Intermittent bilateral upper extremity numbness and tingling. No sensory deficits in between episodes. Left upper extremity strength was limited by a recent stroke, but now improving. Left shoulder pain, but no neck pain. Findings: Nerve conduction studies were performed in the right and left upper extremities. The right median motor study recording the abductor pollicis brevis showed a normal amplitude, prolonged distal latency and slowed conduction velocity. The right ulnar motor study recording the abductor digiti minimi showed a normal amplitude, normal distal latency and borderline conduction velocity. No conduction block or focal slowing was present across the elbow. The right median sensory response recording digit two showed a reduced amplitude, prolonged latency and markedly slowed conduction velocity. The right ulnar sensory response recording digit five showed a normal amplitude, latency and conduction velocity. The right radial sensory response recording over the extensor snuff box showed a normal amplitude, latency and conduction velocity. The left median motor study recording the abductor pollicis brevis showed a normal amplitude, borderline distal latency and slowed conduction velocity. The left ulnar motor study recording the abductor digiti minimi showed a normal amplitude, normal distal latency and normal conduction velocity. No conduction block or focal slowing was present across the elbow. Left median-ulnar lumbrical / interosseous motor latencies showed a prolonged median latency compared to the ulnar. The left median sensory response recording digit two showed a normal amplitude, prolonged latency and slowed conduction velocity. The left ulnar sensory response recording digit five showed a normal amplitude, borderline latency and mildly slowed conduction velocity. The left radial sensory response recording over the extensor snuff box showed a normal amplitude, latency and conduction velocity. Needle EMG of the upper extremities was omitted due to the use of therapeutic anticoagulation (apixaban). Impression: This is an abnormal study. 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 These findings are compatible with the clinical diagnosis of carpal tunnel syndrome. A concurrent cervical radiculopathy cannot be entirely excluded due to the lack of needle examination. If this remains a strong clinical consideration a separate needle EMG can be scheduled off of apixaban. Kiko Deal D.O. Multi Select Codes Neurology Neurology Interp Codes: [id number] [facility] test 11-12 studies (interp)
== END | disposition home or self-care (01) ==
LOC: PSN 12:49
PROVIDERS: PCP Family Medicine; Referring Provider Family Medicine; Visit Provider Family Medicine
DX: R20.0 Anesthesia of skin (principal); R20.2 Paresthesia of skin
CPT/HCPCS: 95912

== ENCOUNTER → 2022-06-07 | Outpatient (CLI) | payer MEDICARE, SELFPAY | END | disposition home or self-care (01) | LOC: PSN 13:54 | PROVIDERS: PCP Family Medicine; Referring Provider Nurse Practitioner Gerontology; Visit Provider Nurse Practitioner Gerontology | DX: I48.19 Other persistent atrial fibrillation (principal) | CPT/HCPCS: 93225; 93226 ==

== ENCOUNTER → 2022-07-03 | Outpatient (CLI) | payer MEDICARE, SELFPAY ==
[2022-07-03 16:56] LABS: Hematocrit 31.7 % (40-54); Hemoglobin 10.9 g/dL (13.0-16.5); Mean Corp Hgb Conc 34.4 g/dL (32-36); Mean Corpuscular Hgb 31.6 pg (27.0-32.0); Mean Corpuscular Volume 91.9 fL (80-94); Mean Platelet Vol. 11.7 fl (6.2-12.0); Platelet Count 234 K/mm3 (150-450); RBC Distribution Width CV 12.7 % (11.6-14.6); RBC Distribution Width SD 41.9 fl (35.1-43.9); Red Blood Count 3.45 M/mm3 (4.6-6.2); White Blood Count 9.1 K/mm3 (4.4-11.0)
[2022-07-03 17:10] LABS: Creatinine, Urine (random) < 13.00 mg/dL (NO RANGE EST.); Protein, Urine (Random) < 6.0 mg/dL (<11.9)
[2022-07-03 17:26] LABS: Albumin, Serum 4.2 g/dL (3.2-5.0); BUN 39 mg/dL (7-18); BUN/Creat Ratio 16.5 RATIO (10-20); Calcium,Total 10.1 mg/dL (8.5-10.1); Chloride 105 mmol/L (98-107); Creatinine, Serum 2.37 mg/dL (0.70-1.30); EST Glomerular Filtration Rate 29 mL/min (>60); Est Glom Filt Rate - Afr Amer 35 mL/min (>60); Glucose 104 mg/dL (74-106); Phosphorus 3.1 mg/dL (2.5-4.9); Sodium Level 138 mmol/L (136-145)
[2022-07-03 17:29] LABS: Vitamin D,25 Hydroxy 38.1 ng/mL
== END | disposition home or self-care (01) ==
LOC: LAB 16:23
PROVIDERS: PCP Family Medicine; Referring Provider Nurse Practitioner Adult Health; Visit Provider Nurse Practitioner Adult Health
DX: N18.4 Chronic kidney disease, stage 4 (severe) (principal); D50.9 Iron deficiency anemia, unspecified
CPT/HCPCS: 36415; 80069; 82306; 82570; 83970; 84156; 85027

== ENCOUNTER → 2022-11-13 | Outpatient (CLI) | payer BC, MEDICARE, SELFPAY ==
--- NOTE | 2022-11-14 10:20 | PFT ---
INTRODUCTION: The patient is a 72-year-old male that presents for pulmonary function studies secondary to a diagnosis of atrial fibrillation. Respiratory therapy reported good patient effort. Bronchodilators were used during testing. INTERPRETATION: Forced expiration spirometry demonstrates no evidence of a large airways obstructive ventilatory defect. There was no significant response to aerosolized bronchodilators. Spirograms are of fair quality and plateau normally. Body plethysmography was performed and reveals lung volumes to be within normal limits. Diffusing capacity by single breath CO was likewise within normal limits. IMPRESSION: Grossly normal pulmonary function studies.
== END | disposition home or self-care (01) ==
LOC: PSN 06:21
PROVIDERS: PCP Family Medicine; Visit Provider Nurse Practitioner Gerontology
DX: I48.19 Other persistent atrial fibrillation (principal); Z79.899 Other long term (current) drug therapy
CPT/HCPCS: 94060; 94726; 94729

== ENCOUNTER 2022-11-29 14:54 | Emergency (ER) | payer BC, MEDICARE, SELFPAY ==
[2022-11-29 14:55] VITALS: BP 117/83; PULSE 56; RESP 14; TEMP 36.5; O2SAT 100; BMI 34.0
--- NOTE | 2022-11-29 15:44 | EKG12_ITS ---
Test Reason : FALL Blood Pressure : / mmHG Vent. Rate : 055 BPM Atrial Rate : 000 BPM P-R Int : 000 ms QRS Dur : 134 ms QT Int : 492 ms P-R-T Axes : 000 -53 075 degrees QTc Int : 470 ms Sinus bradycardia 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 Abnormal ECG Confirmed by STARLA BESS, SUNDEEP ([id number]), food editor JHONATAN CRANDALL ([id number]) on 11/30/2022 10:53:35 AM Referred By: Confirmed By:SUNDEEP CHA MD
--- NOTE | 2022-11-29 15:46 | CT_ITS ---
STUDY: CT BRAIN WITHOUT CONTRAST REASON FOR EXAM: Male, 72 years old. Fall one day ago with head trauma. Confusion. Patient takes blood thinners. RADIATION DOSAGE (If Supplied By Facility): CTDIvol = ( 44.99 ) mGy, DLP = ( 812.98 ) mGycm TECHNIQUE: Transaxial CT imaging of the brain was performed without administration of intravenous contrast material. Individualized dose optimization techniques were used for this CT. COMPARISON: December 05, 2021. FINDINGS: Normal soft tissue structures. Normal calvarium. Axillary There are areas of decreased attenuation within the white matter tracts of the supratentorial brain, consistent with microvascular disease changes. No large area of low attenuation involving the right temporal parietal region consistent with right MCA infarct. This was suspected on the previous study but has since healed bulge. There is minimal low-attenuation in the white matter of the right frontoparietal region as well which was previously seen. There is a band of low attenuation in the right external capsule. The basal ganglia and thalami are otherwise unremarkable. There is slight ex vacuo dilatation of the temporal and occipital horns of the right lateral ventricle. Normal brainstem. Normal cerebellum. There is no intracranial hemorrhage. Normal visualized paranasal sinuses. CT/Brain/Head without Contrast IMPRESSION: 1. No evidence of acute intracranial hemorrhage. 2. Evolution of the right MCA infarct when compared to December 05, 2021. AIDOC was utilized to assist in identifying pertinent positive findings in this case. Electronically Signed: Dov Clement DO at 16:26 EDT ,
--- NOTE | 2022-11-29 15:46 | CT_ITS ---
STUDY: CT CERVICAL SPINE WITHOUT CONTRAST REASON FOR EXAM: Male, 72 years old. Fall with head trauma one day ago. RADIATION DOSAGE (If Supplied By Facility): CTDIvol = ( 26.75 ) mGy, DLP = ( 509.40 ) mGycm TECHNIQUE: High resolution transaxial imaging was performed without contrast material. Sagittal and coronal images were reconstructed. Individualized dose optimization techniques were used for this CT. COMPARISON: None FINDINGS: Normal craniovertebral junction. Normal anterior atlantoaxial articulation. Normal odontoid process. Normal cervical lordosis. Normal vertebral bodies and posterior osseous elements. C2-3: Normal endplates. Normal disc height and morphology. Effusion on the right facet joint. Normal central canal and intervertebral neuroforamina. C3-4: Question minimal anterolisthesis of C3 on C4. There is slight loss of disc height with bulging annulus. Facet joint degenerative change without subluxation. Normal central canal and intervertebral neuroforamina. C4-5: Endplate spondylosis. Marked loss of disc height with mild bulging annulus. Facet and uncovertebral joint degenerative change. Normal central canal. Mild narrowing of the bilateral intervertebral neuroforamina. C5-6: Endplate spondylosis. Loss of disc height with mild bulging annulus. Facet and uncovertebral joint degenerative change. Normal central canal. Mild narrowing of the right intervertebral neuroforamen. C6-7: Endplate spondylosis. Loss of disc height with bulging annulus. Facet and uncovertebral joint degenerative change. Normal central canal. Narrowing of the bilateral intervertebral neuroforamina, left greater than right. C7-T1: Normal endplates. Normal disc height and morphology. Normal central canal and intervertebral neuroforamina. Normal visualized soft tissue structures. CT/Spine Cervical without Contras IMPRESSION: Degenerative changes cervical spine without acute fracture or subluxation. Note: MRI is more sensitive than CT in detecting cord injury, ligamentous injury and epidural hematoma. If there is continued clinical concern for any of these entities, MRI should be considered. AIDOC was utilized to assist in identifying pertinent positive findings in this case. Electronically Signed: Dov Clement DO at 16:30 EDT Reading Location ID and State: [facility] / [place] Tel [phone], Service support ,
--- NOTE | 2022-11-29 15:46 | CT_ITS ---
STUDY: CT FACIAL BONES WITHOUT CONTRAST REASON FOR EXAM: Male, 72 years old. Fall one day ago with head trauma. RADIATION DOSAGE (If Supplied By Facility): CTDIvol = ( 29.38 ) mGy, DLP = ( 547.46 ) mGycm TECHNIQUE: The patient was scanned in a multi detector CT scanner. Sagittal and coronal images were reconstructed. Individualized dose optimization techniques were used for this CT. COMPARISON: CT of the head, November 29, 2022 FINDINGS: Normal soft tissue structures. Normal orbital eckert and orbital contents. Normal nasal bones and anterior nasal spine. Normal facial bones. There is no demonstrated fracture. Normal visualized paranasal sinuses. CT/Sinus/Facial Bone IMPRESSION: No acute facial bone fracture. Electronically Signed: Dov Clement DO at 16:27 EDT ,
[2022-11-29 15:54] VITALS: RESP 18
[2022-11-29 16:02] LABS: Bacteria 0 SEEN /hpf (None Seen); Mucous, Urine 0 SEEN /hpf (<or=2+); Red Blood Cells-Urine 0 SEEN /hpf (0-5); Squamous Epithelial Cells - UA 0 SEEN /hpf (0-5); White Blood Cells 0 SEEN /hpf (0-5)
[2022-11-29 16:03] LABS: Color, Urine Yellow (Yellow); Glucose, Dipstick Normal (Normal); Ketone-Dipstick Negative (Negative); Leukocyte Esterase-Dipstick Negative /ul (Negative); Nitrite-Dipstick Negative (Negative); Occult Blood-Urine Negative /ul (Negative); Protein-Dipstick Negative (Negative); Urine Bilirubin Dipstick Negative (Negative); Urine Clarity Clear (Clear); Urine Urobilinogen Normal (Normal); Urine pH 6.5 (5.0 - 8.0)
[2022-11-29 16:07] LABS: Absolute Lymphocyte Count 0.78 X10^3/uL (0.83-4.51); Absolute Neutrophil Count 4.9 X10^3/uL (2.0-7.7); Basophil# 0.02 X10^3/uL; Basophil% 0.3 % (0-1); Eosinophil# 0.22 X10^3/uL; Eosinophils% 3.3 % (0-5); Hematocrit 27.8 % (40-54); Lymphocyte # 0.78 X10^3/ul (0.83-4.51); Lymphocyte % 11.8 % (19-41); Mean Corp Hgb Conc 32.4 g/dL (32-36); Mean Corpuscular Hgb 30.8 pg (27.0-32.0); Mean Corpuscular Volume 95.2 fL (80-94); Mean Platelet Vol. 11.6 fl (6.2-12.0); Monocyte# 0.67 X10^3/uL; Monocyte% 10.2 % (0-10); NRBC Flagged by Analyzer 0 % (0-5); Neutrophil # 4.89 X10^3/uL (2.7-7.7); Neutrophil % 74.2 % (47-70); Platelet Count 205 K/mm3 (150-450); RBC Distribution Width CV 12.9 % (11.6-14.6); RBC Distribution Width SD 44.4 fl (35.1-43.9); Red Blood Count 2.92 M/mm3 (4.6-6.2); White Blood Count 6.6 K/mm3 (4.4-11.0)
[2022-11-29 16:11] LABS: International Normalized Ratio 1.4; Prothrombin Time (Protime)PT. 16.9 SECONDS (11.7-14.9)
--- NOTE | 2022-11-29 16:14 | RAD_ITS ---
STUDY: X-RAY CHEST REASON FOR EXAM: Male, 72 years old. Cough. TECHNIQUE: PA and lateral views of the chest. COMPARISON: February 25, 2022 FINDINGS: The lungs are clear and expanded. There is no demonstrated pleural abnormality. Normal size heart. Normal mediastinum and daniel. Normal visualized pulmonary arteries. Normal visualized aortic arch and descending thoracic aorta. Stable dorsal column stimulator. There is degenerative osteoarthritis of the bilateral shoulders. There is no demonstrated abnormality of the visualized soft tissue structures of the upper abdomen. RAD/Chest PA and Lateral IMPRESSION: Degenerative changes, as described above. No demonstrated acute cardiopulmonary process. No major interval change. Electronically Signed: Dov Clement DO at 16:31 EDT ,
[2022-11-29 16:18] LABS: Anion Gap 7 (5-15); BUN 56 mg/dL (7-18); Calcium,Total 9.5 mg/dL (8.5-10.1); Chloride 107 mmol/L (98-107); Creatinine, Serum 3.29 mg/dL (0.70-1.30); EST Glomerular Filtration Rate 20 mL/min (>60); Est Glom Filt Rate - Afr Amer 24 mL/min (>60); Glucose 76 mg/dL (74-106); Potassium 4.2 mmol/L (3.5-5.1); Sodium Level 141 mmol/L (136-145)
[2022-11-29] MEDS: Diphth,Pertuss(Acell),Tet Vac 0.5 ML Vial IM (17:05)
--- NOTE | 2022-11-29 17:15 | EDS_ITS ---
HPI <PONCHO Brice - Last Filed: 11/29/22 17:24> History of Present Illness Chief Complaint: Head Injury Narrative Narrative: 72-year-old male with history of right-sided stroke with left-sided deficit 1 year ago, paroxysmal atrial fibrillation on Eliquis, hemineglect of the left side presents to the emergency department after mechanical fall. Per the , patient has been acting off over the last 2 days, patient did have a fall striking the left side of his head. Secondary to the blood thinner, they are here for evaluation. Patient is alert and oriented. Patient denies any fever or chills. Patient denies any chest pain or shortness of breath. Denies any dizziness. PFSH <PONCHO Brice - Last Filed: 11/29/22 17:24> [facility] Medical History Acute on chronic combined systolic (congestive) and diastolic (congestive) heart failure (02/02/20) Acute right MCA stroke Anemia Cerebral artery occlusion with cerebral infarction Chronic combined systolic and diastolic CHF (congestive heart failure) Chronic low back pain CKD (chronic kidney disease), stage III CVA (cerebral vascular accident) (12/2017) Diabetes mellitus type 1.5, managed as type 1 Essential (primary) hypertension GERD (gastroesophageal reflux disease) History of iron deficiency History of non-ST elevation myocardial infarction (NSTEMI) (02/02/20) Hyperlipidemia 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 (LBBB) FPC current use of 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 Longstanding persistent atrial fibrillation Non-ischemic cardiomyopathy NSVT (nonsustained ventricular tachycardia) Obesity Osteoarthritis Paroxysmal atrial fibrillation Secondary pulmonary arterial hypertension TIA (transient ischemic attack) (12/2017) Home Medications acetaminophen 500 mg tablet 1,000 mg PO 2100 #0 tabs 01/06/22 [Rx Last Taken Unknown] ascorbic acid (vitamin C) 500 mg tablet 1,000 mg PO LUNCH #0 tabs 01/06/22 [Rx Last Taken Unknown] atorvastatin 80 mg tablet 80 mg PO QHS CHOLESTEROL 01/06/22 [History Last Taken 12/13/21 22:00] carvedilol 25 mg tablet 25 mg PO BID heart #180 tabs 01/06/22 [Rx Last Taken Unknown] fenofibrate 54 mg tablet 54 mg PO DAILY #30 tabs 01/06/22 [Rx Last Taken Unknown] ferrous sulfate 325 mg (65 mg iron) tablet 325 mg PO DAILY supplement #30 tabs 01/06/22 [Rx Last Taken 02/02/20] magnesium chloride 64 mg (magnesium chloride) tablet,delayed release (Mag 64) 128 mg PO DAILY #60 tabs 01/06/22 [Rx Last Taken Unknown] sertraline 50 mg tablet 50 mg PO DAILY #30 tabs 01/06/22 [Rx Last Taken Unknown] docusate sodium 100 mg capsule 100 mg PO DAILY PRN 02/12/22 [History Last Taken Unknown] furosemide 40 mg tablet 40 mg PO DAILY Check with primary doctor 02/12/22 [History Last Taken Unknown] multivitamin (Daily Multi-Vitamin tablet) 1 tab PO DAILY 02/12/22 [History Last Taken Unknown] tamsulosin 0.4 mg capsule 0.4 mg PO BID 02/12/22 [History Last Taken Unknown] aspirin 81 mg capsule 81 mg PO DAILY 02/25/22 [History Last Taken Unknown] buspirone 15 mg tablet 7.5 mg PO BID 02/25/22 [History Last Taken Unknown] diclofenac sodium 1 % topical gel 1 ea topical TID 02/25/22 [History Last Taken Unknown] omeprazole 20 mg capsule,delayed release 40 mg PO DAILY gerd 02/25/22 [History Last Taken Unknown] insulin aspart U-100 100 unit/mL (3 mL) subcutaneous pen See Rx Instructions .Route .COMPLEX diabetes 05/09/22 [History Last Taken Unknown] insulin glargine 100 unit/mL (3 mL) subcutaneous pen See Rx Instructions .Route .COMPLEX diabetes 05/09/22 [History Last Taken Unknown] zonisamide 25 mg capsule (Zonegran) 25 mg PO BID 05/09/22 [History Last Taken Unknown] amiodarone 200 mg tablet 200 mg PO DAILY #30 tabs 06/12/22 [Rx Last Taken Unknown] amlodipine 10 mg tablet 10 mg PO DAILY 07/03/22 [History Last Taken Unknown] apixaban 5 mg tablet (Eliquis) 5 mg PO BID #180 tabs 07/26/22 [Rx Last Taken Unknown] diltiazem HCl 120 mg capsule,extended release 24 hr 120 mg PO DAILY 11/07/22 [History Last Taken Unknown] lisinopril 10 mg tablet 10 mg PO DAILY 11/07/22 [History Last Taken Unknown] lovastatin 40 mg tablet 40 mg PO DAILY 11/07/22 [History Last Taken Unknown] Allergy/AdvReac Type Severity Reaction Status Date / Time rofecoxib Allergy Hives Verified 11/29/22 14:57 Family History Mother Heart disease Sister Heart disease Myocardial infarction CVA (cerebral vascular accident) Diabetes Brother CVA (cerebral vascular accident) Surgical History History of back surgery History of knee replacement, total Social History Smoking Status: Never smoker alcohol intake: current alcohol intake frequency: holidays/special occasions only Alcohol type: beer substance use type: does not use caffeine: Yes Type: coffee Number of servings: 2 ROS <PONCHO Brice - Last Filed: 11/29/22 17:24> ROS ED ROS Narrative Constitutional: Negative for fever, chills, weight loss, weakness Eyes: Negative for vision loss, vision change, double vision ENT: Negative for any sore throat, ear pain, congestion Cardiovascular: Negative for any chest pain, tightness, palpitations Respiratory: Negative for any cough, sputum production, hemoptysis, dyspnea, dyspnea on exertion, orthopnea Gastrointestinal: Negative for any abdominal pain, nausea, vomiting, diarrhea, constipation, blood in stool, blood in vomit : Negative for any urinary frequency, dysuria, retention, blood in urine Muscle skeletal: Negative for any muscle joint pain, stiffness, myalgias, arthralgias, neck pain, back pain Neurological: Negative for any syncope, numbness or tingling, dizziness. Positive headache Skin: Negative for any rashes, lumps, itching, abrasions, lacerations Psychiatric: Negative for any depression, anxiety, stress, suicidal ideation, homicidal ideation Hematologic: Negative for any easy bruising, excessive bruising, easy bleeding Allergies: Negative for any eczema, hives, rash EXAM <PONCHO Brice - Last Filed: 11/29/22 17:24> Physical Exam Narrative Exam Narrative: Vital signs reviewed. Patient is alert and orient x4. Patient is able to carry conversation on. Per the , he is acting appropriate this time. HEET: Head normocephalic atraumatic, TMs clear bilaterally. Posterior pharynx is clear, moist mucous membranes. Nares clear bilaterally. Patient does have a small left-sided facial droop however this is residual from his last stroke 1 year ago. Neck: Supple with no lymphadenopathy or tenderness. No signs of meningismus, negative jolt sign. Cardiac: Regular rate and rhythm no murmurs gallops or rubs, equal peripheral pulses bilaterally. Respiratory: Lungs clear to auscultation bilaterally. No chest tenderness. Abdomen: Soft, nontender, nondistended. No abdominal bruit or pulsatile masses. No hepatosplenomegaly Extremities: No peripheral edema, no signs of gross trauma or deformity. Active full range of motion of all extremities. Patient does have slight weakness to his left arm however again this is from the stroke 1 year ago. He has no new d eficits. Neuro: Cranial nerves II through XII intact, no focal neurological deficits. Skin: Clean dry and intact with no rash, purpura, petechiae, vesicles or pustules. Backs/flank: No CVA tenderness, no midline spinal tenderness, no deformity. Psych: Normal mood and affect. No SI, HI or acute psychosis. Const Vital Signs: 11/29/22 14:55 11/29/22 15:54 11/29/22 17:47 Temperature 97.7 F L Temperature Source Temporal Pulse Rate 56 L 52 L Respiratory Rate 14 18 18 Respiratory Effort Respiratory Depth Respiratory Pattern Blood Pressure 117/83 H 133/69 H Blood Pressure Mean 94 Pulse Ox 100 97 Oxygen Delivery Method Room Air 11/29/22 17:52 Temperature Temperature Source Pulse Rate Respiratory Rate Respiratory Effort Normal Non-Labored Respiratory Depth Normal Respiratory Pattern Normal Blood Pressure Blood Pressure Mean Pulse Ox Oxygen Delivery Method Room Air <Dr. Quan Luong, DO - Last Filed: 11/29/22 19:11> Physical Exam Const Vital Signs: 11/29/22 14:55 11/29/22 15:54 11/29/22 17:47 Temperature 97.7 F L Temperature Source Temporal Pulse Rate 56 L 52 L Respiratory Rate 14 18 18 Respiratory Effort Respiratory Depth Respiratory Pattern Blood Pressure 117/83 H 133/69 H Blood Pressure Mean 94 Pulse Ox 100 97 Oxygen Delivery Method Room Air 11/29/22 17:52 Temperature Temperature Source Pulse Rate Respiratory Rate Respiratory Effort Normal Non-Labored Respiratory Depth Normal Respiratory Pattern Normal Blood Pressure Blood Pressure Mean Pulse Ox Oxygen Delivery Method Room Air [facility] <PONCHO Brice - Last Filed: 11/29/22 17:24> [facility] Lab Data Labs: Laboratory Results - last 24 hr 11/29/22 11/29/22 11/29/22 15:52 15:52 15:52 WBC 6.6 RBC 2.92 L Hgb 9.0 L Hct 27.8 L MCV 95.2 H MCH 30.8 MCHC 32.4 RDW Std Deviation 44.4 H RDW Coeff of Whitney 12.9 Plt Count 205 MPV 11.6 Immature Gran % (Auto) 0.200 Neut % (Auto) 74.2 H Lymph % (Auto) 11.8 L [place] % (Auto) 10.2 H Eos % (Auto) 3.3 Baso % (Auto) 0.3 Absolute Neuts (auto) 4.9 Absolute Lymphs (auto) 0.78 L Nucleated RBC % 0 PT 16.9 H INR 1.4 Sodium 141 Potassium 4.2 Chloride 107 Carbon Dioxide 27.0 Anion Gap 7 BUN 56 H Creatinine 3.29 H Estim Creat Clear Calc 20.30 Est GFR (MDRD) Af Amer 24 L Est GFR (MDRD) Non-Af 20 L BUN/Creatinine Ratio 17.0 Glucose 76 Calcium 9.5 Urine Color Urine Clarity Urine pH Ur Specific [place] Urine Protein Urine Glucose (UA) Urine Ketones Urine Occult Blood Urine Nitrite Urine Bilirubin Urine Urobilinogen Ur Leukocyte Esterase Urine RBC Urine WBC Ur Squamous Epith Cells Urine Bacteria Urine Mucus 11/29/22 15:52 WBC RBC Hgb Hct MCV MCH MCHC RDW Std Deviation RDW Coeff of [place] Plt Count MPV Immature Gran % (Auto) Neut % (Auto) Lymph % (Auto) [place] % (Auto) Eos % (Auto) Baso % (Auto) Absolute Neuts (auto) Absolute Lymphs (auto) Nucleated RBC % PT INR Sodium Potassium Chloride Carbon Dioxide Anion Gap BUN Creatinine Estim Creat Clear Calc Est GFR (MDRD) Af Amer Est GFR (MDRD) Non-Af BUN/Creatinine Ratio Glucose Calcium Urine Color Yellow Urine Clarity Clear Urine pH 6.5 Ur Specific [place] 1.010 Urine Protein Negative Urine Glucose (UA) Normal Urine Ketones Negative Urine Occult Blood Negative Urine Nitrite Negative Urine Bilirubin Negative Urine Urobilinogen Normal Ur Leukocyte Esterase Negative Urine RBC 0 SEEN Urine WBC 0 SEEN Ur Squamous Epith Cells 0 SEEN Urine Bacteria 0 SEEN Urine Mucus 0 SEEN Radiography Diagnostic Testing: Clinical Impression(s) from Imaging Studies Brain CT 11/29/22 15:46 IMPRESSION: 1. No evidence of acute intracranial hemorrhage. 2. Evolution of the right MCA infarct when compared to December 05, 2021. [employer] was utilized to assist in identifying pertinent positive findings in this case. Electronically Signed: Dov Clement DO at 16:26 EDT Reading Location ID and State: [facility] / [place] Tel [phone], Service support , Cervical Spine CT 11/29/22 15:46 IMPRESSION: Degenerative changes cervical spine without acute fracture or subluxation. Note: MRI is more sensitive than CT in detecting cord injury, ligamentous injury and epidural hematoma. If there is continued clinical concern for any of these entities, MRI should be considered. [employer] was utilized to assist in identifying pertinent positive findings in this case. Electronically Signed: Dov Clement DO at 16:30 EDT Reading Location ID and State: [place] / [place] Tel [phone], Service support , Facial/Sinus 11/29/22 15:46 IMPRESSION: No acute facial bone fracture. Electronically Signed: Dov Clement DO at 16:27 EDT Reading Location ID and State: [place] / [place] Tel [phone], Service support , Chest X-Ray 11/29/22 16:14 IMPRESSION: Degenerative changes, as described above. No demonstrated acute cardiopulmonary process. No major interval change. Electronically Signed: Dov Clement DO at 16:31 EDT Reading Location ID and State: [place] / [place] Tel [phone], Service support , Differential Diagnosis Differential Diagnosis: Subdural hematoma Why less likely: Head injury on Eliquis Treatment and Re-Evaluation :: All radiologic examinations were read, reviewed by the emergency department attending. From these reads, a plan of care will be put in place. Patient appears generally well, patient appears nontoxic, vital signs are stable. Patient presents to the emergency department with complaints of a mechanical fall striking left side of his head, he has an abrasion, nothing to suture. Patient's is concerned because he was slightly confused for last 2 days however he is alert and oriented at this time. No new deficits. Patient's laboratory values shows anemia however since 2021, patient has had a hemoglobin stable at 9. Patient's kidney function was slightly elevated at 3.29. 07/03/2022 BMP showed a creatinine of 2.37. Patient was made aware of this and will increase his oral fluid. He will also follow with his PCP. Patient's glucose is 76 which is normal. Patient's chest x-ray two-view was negative for any acute process. CT scan of the facial bones, cervical spine were unremarkable any acute fracture. Patient CT scan showed no evidence of acute intracranial hemorrhage. Evolution of the right MCA infarct when compared to December 05, 2021. At this time, is no evidence of suspect any new CVA. No traumatic brain bleed. No acute infection. Patient is alert and oriented, I spoke with the patient as well as the , they are comfortable going home. Patient will follow-up regarding his renal function. All questions were answered, return precautions given. <Dr. Quan Luong, DO - Last Filed: 11/29/22 19:11> [facility] Narrative Medical decision making narrative: I have personally performed a face to face assessment of the patient and have reviewed the ROMA Note. I performed a substantive portion of the visit including all aspects of the following. My pond findings include: History: Patient presents after a fall that occurred today. Patient was confused after the fall. Patient has a history of frequent falls. Patient nor haleigh walks with a cane. Patient is on apixaban for atrial fibrillation. Patient denies any loss of consciousness. Patient denies any other injuries. Exam: Vital signs are stable. Patient is afebrile. Patient is in no acute distress. Patient is awake, alert, and oriented to person, place, and time. Patient stated the year was 2021 instead of 2022. Patient knew the president of [employer]. There is a superficial abrasion over the left frontal/parietal area. There is no active bleeding noted. There is no bony crepitance or step- off. Cranial nerves II through XII are intact. There are no focal motor or sensory deficits noted. Heart was regular and bradycardic. Lungs are clear and equal bilaterally. Abdomen is soft and nontender. Medical Decision Making: Differential diagnosis includes intracranial bleeding, stroke, anemia, urinary tract infection, pneumonia, electrolyte abnormality, hypoglycemia, and hyperglycemia. CBC will be obtained to assess for anemia and leukocytosis. Basic metabolic profile will be obtained to assess for electrolyte abnormality, glucose, and renal function. PT with INR will be obtained to assess for coagulopathy. Urinalysis will be obtained to assess for urinary tract infection. CT scan of the brain will be obtained to assess for intracranial bleeding and stroke. CT scan of the cervical spine will be obtained to assess for cervical spine fracture. CT scan of the facial bones will be obtained to assess for facial fracture. Chest x-ray will be obtained to assess for pneumonia and pneumothorax. CBC shows mild anemia with a hemoglobin of 9.0 hematocrit 27.8. This was stable compared to previous results. Basic metabolic profile was obtained. Creatinine was slightly elevated at 3.29 and BUN was 56. These were slightly increased from previous results. PT with INR was reviewed. Pro time was 16.9 and INR is 1.4. Urinalysis was reviewed. There is no evidence of urinary tract infection or hematuria. PA and lateral chest x-ray was obtained. There are 2 views. On my independent interpretation, lung smith are clear. There is normal cardiac silhouette. Bony thorax is normal. There is no acute process noted. Radiologist also interpreted the x-ray and agrees. CT scan of the brain was obtained. There is no acute intracranial abnormality. The right MCA stroke fr om previous CT scan appears to be completed. This was interpreted by the radiologist and was also independently reviewed by myself. CT scan of the cervical spine was obtained. On my independent interpretation, there are some degenerative changes. There is no acute fracture noted. Radiologist also interpreted the CT scan and agrees. CT scan of the facial bones was obtained. There is no acute fracture noted. This was interpreted by the radiologist and was also independently reviewed by myself. Patient was advised of his findings. Patient was instructed to follow-up with his primary care physician in 5 to 7 days. Patient was given head injury instructions. Patient and family understood and were agreeable with plan. All questions were answered. History & Record Review Additional record(s) reviewed:: Prior labs Lab Data Labs: Laboratory Results - last 24 hr 11/29/22 11/29/22 11/29/22 15:52 15:52 15:52 WBC 6.6 RBC 2.92 L Hgb 9.0 L Hct 27.8 L MCV 95.2 H MCH 30.8 MCHC 32.4 RDW Std Deviation 44.4 H RDW Coeff of [place] 12.9 Plt Count 205 MPV 11.6 Immature Gran % (Auto) 0.200 Neut % (Auto) 74.2 H Lymph % (Auto) 11.8 L [place] % (Auto) 10.2 H Eos % (Auto) 3.3 Baso % (Auto) 0.3 Absolute Neuts (auto) 4.9 Absolute Lymphs (auto) 0.78 L Nucleated RBC % 0 PT 16.9 H INR 1.4 Sodium 141 Potassium 4.2 Chloride 107 Carbon Dioxide 27.0 Anion Gap 7 BUN 56 H Creatinine 3.29 H Estim Creat Clear Calc 20.30 Est GFR (MDRD) Af Amer 24 L Est GFR (MDRD) Non-Af 20 L BUN/Creatinine Ratio 17.0 Glucose 76 Calcium 9.5 Urine Color Urine Clarity Urine pH Ur Specific [place] Urine Protein Urine Glucose (UA) Urine Ketones Urine Occult Blood Urine Nitrite Urine Bilirubin Urine Urobilinogen Ur Leukocyte Esterase Urine RBC Urine WBC Ur Squamous Epith Cells Urine Bacteria Urine Mucus 11/29/22 15:52 WBC RBC Hgb Hct MCV MCH MCHC RDW Std Deviation RDW Coeff of [place] Plt Count MPV Immature Gran % (Auto) Neut % (Auto) Lymph % (Auto) [place] % (Auto) Eos % (Auto) Baso % (Auto) Absolute Neuts (auto) Absolute Lymphs (auto) Nucleated RBC % PT INR Sodium Potassium Chloride Carbon Dioxide Anion Gap BUN Creatinine Estim Creat Clear Calc Est GFR (MDRD) Af Amer Est GFR (MDRD) Non-Af BUN/Creatinine Ratio Glucose Calcium Urine Color Yellow Urine Clarity Clear Urine pH 6.5 Ur Specific [place] 1.010 Urine Protein Negative Urine Glucose (UA) Normal Urine Ketones Negative Urine Occult Blood Negative Urine Nitrite Negative Urine Bilirubin Negative Urine Urobilinogen Normal Ur Leukocyte Esterase Negative Urine RBC 0 SEEN Urine WBC 0 SEEN Ur Squamous Epith Cells 0 SEEN Urine Bacteria 0 SEEN Urine Mucus 0 SEEN Radiography Diagnostic Testing: Clinical Impression(s) from Imaging Studies Brain CT 11/29/22 15:46 IMPRESSION: 1. No evidence of acute intracranial hemorrhage. 2. Evolution of the right MCA infarct when compared to December 05, 2021. AIDOC was utilized to assist in identifying pertinent positive findings in this case. Electronically Signed: Dov UrbanoDO at 16:26 EDT Reading Location ID and State: [place] / [place] Tel [phone], Service support , Cervical Spine CT 11/29/22 15:46 IMPRESSION: Degenerative changes cervical spine without acute fracture or subluxation. Note: MRI is more sensitive than CT in detecting cord injury, ligamentous injury and epidural hematoma. If there is continued clinical concern for any of these entities, MRI should be considered. AIDOC was utilized to assist in identifying pertinent positive findings in this case. Electronically Signed: Dov MattituckDO yadi at 16:30 EDT Reading Location ID and State: [place] / [place] Tel [phone], Service support , Facial/Sinus 11/29/22 15:46 IMPRESSION: No acute facial bone fracture. Electronically Signed: Dov MattituckDO yadi at 16:27 EDT Reading Location ID and State: [place] / [place] Tel [phone], Service support , Chest X-Ray 11/29/22 16:14 IMPRESSION: Degenerative changes, as described above. No demonstrated acute cardiopulmonary process. No major interval change. Electronically Signed: Dov UrbanoDO at 16:31 EDT Reading Location ID and State: [place] / [place] Tel [phone], Service support , Discharge Plan Triage Chief Complaint: Head Injury ED Midlevel Provider: Jhon Sanabria ED Provider: Quan Luong Dx/Rx/DC Orders Clinical Impression: Fall, Head injury, Chronic renal insufficiency Instructions: After a Concussion, CKD Dc, ED Head Injury (Adult) Prescriptions: No Action multivitamin [Daily Multi-Vitamin] Tablet 1 tab PO DAILY furosemide 40 mg tablet 40 mg PO DAILY tamsulosin 0.4 mg capsule 0.4 mg PO BID Rx Instructions: Take daily with supper docusate sodium 100 mg capsule 100 mg PO DAILY PRN insulin glargine 100 unit/mL (3 mL) insulin pen See Rx Instructions .ROUTE .COMPLEX Rx Instructions: 36 units in AM 16 units at bedtime insulin aspart U-100 100 unit/mL (3 mL) insulin pen See Rx Instructions .ROUTE .COMPLEX Rx Instructions: 10 units with breakfast 12 units with lunch 14 units with supper lovastatin 40 mg tablet 40 mg PO DAILY diltiazem HCl 120 mg capsule,extended release 24hr 120 mg PO DAILY lisinopril 10 mg tablet 10 mg PO DAILY amlodipine 10 mg tablet 10 mg PO DAILY fenofibrate 54 mg tablet 54 mg PO DAILY Qty: 30 0RF acetaminophen 500 mg Tablet 1,000 mg PO 2100 Qty: 0 0RF ascorbic acid (vitamin C) 500 mg Tablet 1,000 mg PO LUNCH Qty: 0 0RF Rx Instructions: ALWAYS take with the iron supplement and a meal Mag 64 64 mg Tablet,Delayed Release (Dr/Ec) 128 mg PO DAILY Qty: 60 0RF sertraline 50 mg Tablet 50 mg PO DAILY Qty: 30 0RF atorvastatin 80 mg Tablet 80 mg PO QHS carvedilol 25 mg tablet 25 mg PO BID Qty: 180 3RF ferrous sulfate 325 mg (65 mg iron) tablet 325 mg PO DAILY Qty: 30 0RF Rx Instructions: Take with a meal and with Vitamin C once a day. buspirone [BuSpar] 15 mg Tablet 7.5 mg PO BID Rx Instructions: 1/2 TAB BID FOR 2 WEEKS THEN 1 TAB BID diclofenac sodium 1 % Gel 1 ea TOPICAL TID aspirin 81 mg Capsule 81 mg PO DAILY omeprazole 20 mg capsule,delayed release(DR/EC) 40 mg PO DAILY zonisamide [Zonegran] 25 mg capsule 25 mg PO BID amiodarone 200 mg tablet 200 mg PO DAILY Qty: 30 6RF Eliquis 5 mg tablet 5 mg PO BID Qty: 180 4RF Primary Care Provider: Lester Jarvis Referrals: Lester Jarvis MD [Primary Care Provider] - Activity Restrictions/Additional Instructions: Your renal function has worsened, you need to ensure that you drink fluids. You need to follow-up outpatient. Disposition Disposition: Home, Self Care Discharge Date/Time: 11/29/22 17:52
[2022-11-29 17:47] VITALS: BP 133/69; PULSE 52; RESP 18; O2SAT 97
== END 2022-11-29 17:52 | disposition home or self-care (01) ==
PROVIDERS: Nurse Practitioner; Emergency Provider Emergency Medicine; PCP Family Medicine; Visit Provider Emergency Medicine
DX: S09.90XA Unspecified injury of head, initial encounter (principal); I69.352 Hemiplegia and hemiparesis following cerebral infarction affecting left dominant side; I13.0 Hypertensive heart and chronic kidney disease with heart failure and stage 1 through stage 4 chronic kidney disease, or unspecified chronic kidney disease; I50.42 Chronic combined systolic (congestive) and diastolic (congestive) heart failure; E13.22 Other specified diabetes mellitus with diabetic chronic kidney disease; I48.0 Paroxysmal atrial fibrillation; Z79.4 Long term (current) use of insulin; N18.30 Chronic kidney disease, stage 3 unspecified; E78.5 Hyperlipidemia, unspecified; W19.XXXA Unspecified fall, initial encounter; Z79.01 Long term (current) use of 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s; Z79.899 Other long term (current) drug therapy; Z79.82 Long term (current) use of aspirin; K21.9 Gastro-esophageal reflux disease without esophagitis
CPT/HCPCS: 70450; 70486; 71046; 72125; 80048; 81001; 85025; 85610; 90471; 90715; 93005; 99283; A4216

== ENCOUNTER → 2022-11-29 | Outpatient (CLI) | payer BC, MEDICARE, SELFPAY ==
[2022-11-29 15:50] LABS: Hematocrit 28.9 % (40-54); Hemoglobin 9.3 g/dL (13.0-16.5); Mean Corp Hgb Conc 32.2 g/dL (32-36); Mean Corpuscular Hgb 30.6 pg (27.0-32.0); Mean Corpuscular Volume 95.1 fL (80-94); Mean Platelet Vol. 11.8 fl (6.2-12.0); Platelet Count 218 K/mm3 (150-450); RBC Distribution Width CV 12.9 % (11.6-14.6); RBC Distribution Width SD 44.5 fl (35.1-43.9); Red Blood Count 3.04 M/mm3 (4.6-6.2); White Blood Count 7.6 K/mm3 (4.4-11.0)
[2022-11-29 16:07] LABS: Albumin, Serum 4.1 g/dL (3.2-5.0); BUN 55 mg/dL (7-18); Calcium,Total 9.6 mg/dL (8.5-10.1); Chloride 107 mmol/L (98-107); Creatinine, Serum 3.23 mg/dL (0.70-1.30); EST Glomerular Filtration Rate 20 mL/min (>60); Est Glom Filt Rate - Afr Amer 24 mL/min (>60); Glucose 76 mg/dL (74-106); Phosphorus 3.4 mg/dL (2.5-4.9); Potassium 4.3 mmol/L (3.5-5.1); Protein, Urine (Random) 7.1 mg/dL (<11.9); Protein:Creat Ratio 227 mg/g CRE (0-200); Sodium Level 142 mmol/L (136-145)
[2022-11-29 16:35] LABS: Vitamin D,25 Hydroxy 37.9 ng/mL
== END | disposition home or self-care (01) ==
PROVIDERS: PCP Family Medicine; Visit Provider Internal Medicine Nephrology
DX: N18.4 Chronic kidney disease, stage 4 (severe) (principal); D50.9 Iron deficiency anemia, unspecified
CPT/HCPCS: 36415; 80069; 82306; 82570; 83970; 84156; 85027

== ENCOUNTER 2022-12-07 15:23 | Inpatient (IN) | payer BC, MEDICARE, SELFPAY ==
[2022-12-07] VITALS (9 sets, daily range): BP systolic 103–138; BP diastolic 57–78; PULSE 39–78; RESP 14–18; TEMP 36.2–36.6; O2SAT 96–99; BMI 36.7; BMI 35.4
[2022-12-07 15:45] LABS: Bedside Glucose 55 mg/dL (74-106)
--- NOTE | 2022-12-07 15:46 | CT_ITS ---
EXAM: CT HEAD WITHOUT INTRAVENOUS CONTRAST CLINICAL INDICATION: CVA TECHNIQUE: Multiple axial images were obtained of the head without intravenous contrast. This CT exam was performed using one or more of the following dose reduction techniques: automated exposure control, adjustment of the mA and/or kV according to patient size, and/or use of iterative reconstruction technique. This report was created using [employer] report generation technology. COMPARISON: 11/29/2022 FINDINGS: BRAIN AND EXTRA-AXIAL SPACES: There is encephalomalacia from remote right MCA infarct which is stable. The ventricular system and cortical sulci are mildly enlarged in size. There is hypoattenuation in the periventricular white matter of the right frontal lobe which is stable. No intra- or extra-axial hemorrhage. No intracranial mass or mass effect. Posterior fossa structures are unremarkable. Basal cisterns are patent. BONES/JOINTS: Unremarkable. No discrete lytic or blastic abnormalities. SINUSES: Unremarkable as visualized. Clear. MASTOID AIR CELLS: Unremarkable. Clear. ORBITS: Visualized globes, extraocular muscles, optic nerves and retrobulbar fat appear unremarkable. CT/Brain/Head without Contrast IMPRESSION: 1. No acute intracranial abnormality. There has been no significant change from the reference examination. 2. Remote right MCA infarct which is stable. Electronically Signed: Amaury Rush MD at 16:38 EDT ,
--- NOTE | 2022-12-07 15:47 | EKG12_ITS ---
Test Reason : UNRESPONSIVE Blood Pressure : / mmHG Vent. Rate : 040 BPM Atrial Rate : 040 BPM P-R Int : 112 ms QRS Dur : 140 ms QT Int : 590 ms P-R-T Axes : 092 -41 058 degrees QTc Int : 480 ms Marked sinus bradycardia with Premature supraventricular complexes Left axis deviation 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 Abnormal ECG Confirmed by MURALI BESS, YONY ([id number]), brands editor VON TOWNSEND ([id number]) on 12/10/2022 11:07:01 AM Referred By: HEATHER Confirmed By:WAYNE CARRION MD
--- NOTE | 2022-12-07 15:49 | EDS_ITS ---
HPI History of Present Illness Chief Complaint: Neuro S/Sx Informant: patient and spouse/S.O. Narrative Narrative: Patient comes in for unresponsive episode. History is from patient but also significant and detailed history is supplied by his who actually has cameras in the house and can give timing of events. This patient has a history of blood pressure stroke with left-sided residual atrial fibrillation on Eliquis. He has been in a normal state of health. He had Meals on Wheels delivered at about noon. He went back to his chair where he tends to sit all day. states that about 1208 today was the last time he did any moving. When they got him at home he had his food and insulin syringe in his lap. He takes both long and short acting. Patient was unresponsive. Given glucose he is now awake alert and really back to his baseline. Although his heart rate is quite slow he is not complaining of palpitations chest pain pressure or dyspnea. He has left-sided neglect and some weakness but this is baseline and has not changed with this event. They all deny recent illness. He has generally been eating and drinking normally. He did have a fall about a week ago and has abrasion healing on his head. But he has been acting okay since then. No acute changes in medications or dosages that they are aware of. [facility] Medical History Acute on chronic combined systolic (congestive) and diastolic (congestive) heart failure (02/02/20) Acute right MCA stroke Anemia Cerebral artery occlusion with cerebral infarction Chronic combined systolic and diastolic CHF (congestive heart failure) Chronic low back pain CKD (chronic kidney disease), stage III CVA (cerebral vascular accident) (12/2017) Diabetes mellitus type 1.5, managed as type 1 Essential (primary) hypertension GERD (gastroesophageal reflux disease) History of iron deficiency History of non-ST elevation myocardial infarction (NSTEMI) (02/02/20) Hyperlipidemia 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 (LBBB) [facility] current use of 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 Longstanding persistent atrial fibrillation Non-ischemic cardiomyopathy NSVT (nonsustained ventricular tachycardia) Obesity Osteoarthritis Paroxysmal atrial fibrillation Secondary pulmonary arterial hypertension TIA (transient ischemic attack) (12/2017) Home Medications acetaminophen 500 mg tablet 1,000 mg PO 2100 #0 tabs 01/06/22 [Rx Last Taken 12/06/22] ascorbic acid (vitamin C) 500 mg tablet 1,000 mg PO LUNCH #0 tabs 01/06/22 [Rx Last Taken 12/07/22] atorvastatin 80 mg tablet 80 mg PO QHS CHOLESTEROL 01/06/22 [History Last Taken 12/06/22] carvedilol 25 mg tablet 25 mg PO BID heart #180 tabs 01/06/22 [Rx Last Taken 12/07/22] fenofibrate 54 mg tablet 54 mg PO DAILY #30 tabs 01/06/22 [Rx Last Taken 12/07/22] ferrous sulfate 325 mg (65 mg iron) tablet 325 mg PO DAILY supplement #30 tabs 01/06/22 [Rx Last Taken 12/07/22] magnesium chloride 64 mg (magnesium chloride) tablet,delayed release (Mag 64) 128 mg PO DAILY #60 tabs 01/06/22 [Rx Last Taken 12/07/22] docusate sodium 100 mg capsule 100 mg PO DAILY PRN Constipation 02/12/22 [History Last Taken Unknown] furosemide 40 mg tablet 40 mg PO DAILY Check with primary doctor 02/12/22 [History Last Taken 12/07/22] multivitamin (Daily Multi-Vitamin tablet) 1 tab PO DAILY 02/12/22 [History Last Taken 12/07/22] tamsulosin 0.4 mg capsule 0.4 mg PO BID 02/12/22 [History Last Taken 12/07/22] aspirin 81 mg capsule 81 mg PO DAILY 02/25/22 [History Last Taken 12/07/22] buspirone 15 mg tablet 7.5 mg PO BID 02/25/22 [History Last Taken 12/07/22] diclofenac sodium 1 % topical gel 1 ea topical TID 02/25/22 [History Last Taken Unknown] omeprazole 20 mg capsule,delayed release 40 mg PO DAILY gerd 02/25/22 [History Last Taken 12/07/22] insulin aspart U-100 100 unit/mL (3 mL) subcutaneous pen See Rx Instructions .Route .COMPLEX diabetes 05/09/22 [History Last Taken 12/06/22] insulin glargine 100 unit/mL (3 mL) subcutaneous pen See Rx Instructions .Route .COMPLEX diabetes 05/09/22 [History Last Taken 12/06/22] zonisamide 25 mg capsule (Zonegran) 50 mg PO BID 05/09/22 [History Last Taken 12/07/22] amiodarone 200 mg tablet 200 mg PO DAILY #30 tabs 06/12/22 [Rx Last Taken 12/07/22] amlodipine 10 mg tablet 10 mg PO DAILY 07/03/22 [History Last Taken 12/06/22] apixaban 5 mg tablet (Eliquis) 5 mg PO BID #180 tabs 07/26/22 [Rx Last Taken 12/06/22] diltiazem HCl 120 mg capsule,extended release 24 hr 120 mg PO DAILY 11/07/22 [History Last Taken 12/07/22] lisinopril 10 mg tablet 10 mg PO DAILY 11/07/22 [History Last Taken 12/07/22] lovastatin 40 mg tablet 40 mg PO DAILY 11/07/22 [History Last Taken 12/07/22] sertraline 50 mg tablet 100 mg PO DAILY 12/07/22 [History Last Taken 12/07/22] Allergy/AdvReac Type Severity Reaction Status Date / Time rofecoxib Allergy Hives Verified 12/07/22 15:23 Family History Mother Heart disease Sister Heart disease Myocardial infarction CVA (cerebral vascular accident) Diabetes Brother CVA (cerebral vascular accident) Surgical History History of back surgery History of knee replacement, total Social History Smoking Status: Never smoker alcohol intake: current alcohol intake frequency: holidays/special occasions only Alcohol type: beer substance use type: does not use caffeine: Yes Type: coffee Number of servings: 2 ROS ROS ED Constitutional Constitutional ED: Denies chills or fever(s) Eyes Eyes: Denies change in vision ENT ENT ED: Denies sore throat Cardiovascular Cardiovascular: Denies chest pain, palpitations or racing heartbeat Respiratory/Chest Respiratory/Chest: Denies cough or dyspnea Gastrointestinal Gastrointestinal: Denies nausea or vomiting Musculoskeletal Musculoskeletal: Denies myalgias Integumentary Reports Abrasions Neurologic Neurologic: Denies headache(s) Hematologic/Lymphatic Hematologic/Lymphatic: Reports easy bleeding and easy bruising Allergic/Immunologic Allergic/Immunologic ED: Denies urticaria EXAM Physical Exam Narrative Exam Narrative: Patient is awake and alert. He is in bed. He is not having any complaints. He is in no acute distress. HEENT shows scabbing in the left upper forehead but no signs of acute injury. Mucous membranes might be slightly dry. Eyes show no icterus Neck shows no tenderness. Lungs are clear. I hear no wheezes or rhonchi. Heart is bradycardic at about 40. But his blood pressure is 105 systolic and he is awake and alert. I am not hearing definitive murmur. Abdomen is soft and is not tender Extremities show no notable edema or tenderness. Neurologically he is awake alert and at baseline. He is able to move his left side a bit but is markedly weaker and has decreased sensation compared to the right. Const Vital Signs: 12/07/22 15:24 12/07/22 15:47 12/07/22 16:31 Temperature 97.8 F Temperature Source Temporal Pulse Rate 39 L 39 L 39 L Respiratory Rate 14 16 16 Blood Pressure 104/60 110/60 108/57 L Blood Pressure Mean 74 76 74 Pulse Ox 96 99 96 Oxygen Delivery Method Room Air Room Air Room Air MDM MDM MDM Narrative Medical decision making narrative: Patient is now awake and alert after dextrose. He is now eating. We will keep a close eye on him. I will hold off on IV fluids until we get some further blood work back. Patient does have stage IV kidney disease. It is also possible that he may have gotten dehydrated on Lasix causing some of his meds to not clear as much including carvedilol which he is taking. He is also on diltiazem that could affect his heart rate. He is also on magnesium and this le shelly will be checked. Patient's blood work does show some anemia but he has had this now it is a chronic issue. He has chronic renal insufficiency this really at his baseline. Magnesium is minimally high. Troponin is a bit high but he has chronic renal disease. This not diagnostic. I discussed case with hospitalist. Our suspicion is that this patient's bradycardia is likely due to to multiple medications that could cause this. He is on calcium channel dhruv, beta-dhruv and amiodarone. Plan will be to admit him and hold his medicine and see if his rate improves. I think he is much less likely to need a pacemaker. My independent interpretation of the CT scan of the head done for recent fall as well as these episodes show no acute intracranial bleeding. Final reading is similar. Lab Data Attestation: I reviewed the patient's lab results. Labs: Laboratory Results - last 24 hr 12/07/22 12/07/22 12/07/22 15:28 15:54 15:54 WBC 8.6 RBC 3.02 L Hgb 9.4 L Hct 28.9 L MCV 95.7 H MCH 31.1 MCHC 32.5 RDW Std Deviation 45.1 H RDW Coeff of Whitney 12.8 Plt Count 217 MPV 11.5 Immature Gran % (Auto) 0.500 Neut % (Auto) 82.0 H Lymph % (Auto) 6.1 L Dupage % (Auto) 8.5 Eos % (Auto) 2.4 Baso % (Auto) 0.5 Absolute Neuts (auto) 7.1 Absolute Lymphs (auto) 0.53 L Nucleated RBC % 0 Differential Comment SCANNED Sodium 141 Potassium 3.8 Chloride 107 Carbon Dioxide 26.0 Anion Gap 8 BUN 55 H Creatinine 2.95 H Estim Creat Clear Calc 22.63 Est GFR (MDRD) Af Amer 27 L Est GFR (MDRD) Non-Af 22 L BUN/Creatinine Ratio 18.6 Glucose 82 Calcium 9.5 Magnesium 2.7 H Troponin I High Sens 102 H POC Glucose 55 L 12/07/22 16:15 WBC RBC Hgb Hct MCV MCH MCHC RDW Std Deviation RDW Coeff of Whitney Plt Count MPV Immature Gran % (Auto) Neut % (Auto) Lymph % (Auto) Dupage % (Auto) Eos % (Auto) Baso % (Auto) Absolute Neuts (auto) Absolute Lymphs (auto) Nucleated RBC % Differential Comment Sodium Potassium Chloride Carbon Dioxide Anion Gap BUN Creatinine Estim Creat Clear Calc Est GFR (MDRD) Af Amer Est GFR (MDRD) Non-Af BUN/Creatinine Ratio Glucose Calcium Magnesium Troponin I High Sens POC Glucose 63 L Radiography Diagnostic Testing: Clinical Impression(s) from Imaging Studies Brain CT 12/07/22 15:46 IMPRESSION: 1. No acute intracranial abnormality. There has been no significant change from the reference examination. 2. Remote right MCA infarct which is stable. Electronically Signed: Amaury Rush MD at 16:38 EDT , EKG Initial EKG: Comments: My independent interpretation the patient's EKG shows significant bradycardia with overall rate of 40. This does appear to have possible P waves but it looks much longer than the recorded interval. It does appear to be sinus bradycardia including first-degree AV block with a PAC and compensatory pause at the end of the EKG. It is certainly possible that this could be bradycardic A-fib. This is different than his prior primarily in showing a significantly slower rate. In February 2022 his rate was 73. Management Discussion w/another healthcare provider: Hospitalist Discharge Plan Dx/Rx/DC Orders Clinical Impression: Hypoglycemia, Bradycardia, Chronic kidney disease Disposition Disposition: Acute Care Hospital [facility] Discharge Date/Time: 12/07/22 20:52
[2022-12-07 16:02] LABS: Absolute Lymphocyte Count 0.53 X10^3/uL (0.83-4.51); Absolute Neutrophil Count 7.1 X10^3/uL (2.0-7.7); Basophil# 0.04 X10^3/uL; Basophil% 0.5 % (0-1); Eosinophil# 0.21 X10^3/uL; Eosinophils% 2.4 % (0-5); Hematocrit 28.9 % (40-54); Hemoglobin 9.4 g/dL (13.0-16.5); Lymphocyte # 0.53 X10^3/ul (0.83-4.51); Lymphocyte % 6.1 % (19-41); Mean Corp Hgb Conc 32.5 g/dL (32-36); Mean Corpuscular Hgb 31.1 pg (27.0-32.0); Mean Corpuscular Volume 95.7 fL (80-94); Mean Platelet Vol. 11.5 fl (6.2-12.0); Monocyte# 0.73 X10^3/uL; Monocyte% 8.5 % (0-10); NRBC Flagged by Analyzer 0 % (0-5); Neutrophil # 7.07 X10^3/uL (2.7-7.7); POSITIVE DIFFERENTIAL YES; Platelet Count 217 K/mm3 (150-450); RBC Distribution Width CV 12.8 % (11.6-14.6); RBC Distribution Width SD 45.1 fl (35.1-43.9); Red Blood Count 3.02 M/mm3 (4.6-6.2); White Blood Count 8.6 K/mm3 (4.4-11.0)
[2022-12-07 16:04] LABS: Differential Indicated SCAN CRITERIA MET
[2022-12-07 16:22] LABS: Anion Gap 8 (5-15); BUN 55 mg/dL (7-18); BUN/Creat Ratio 18.6 RATIO (10-20); Calcium,Total 9.5 mg/dL (8.5-10.1); Chloride 107 mmol/L (98-107); Creatinine, Serum 2.95 mg/dL (0.70-1.30); EST Glomerular Filtration Rate 22 mL/min (>60); Est Glom Filt Rate - Afr Amer 27 mL/min (>60); Estimated Creatinine Clearance 22.63 ml/min; Glucose 82 mg/dL (74-106); Magnesium 2.7 mg/dL (1.6-2.6); Potassium 3.8 mmol/L (3.5-5.1); Sodium Level 141 mmol/L (136-145); Troponin-I HS 102 pg/mL (3.0-78.0)
[2022-12-07 16:35] LABS: Differential Comment SCANNED
[2022-12-07 16:35] LABS: Bedside Glucose 63 mg/dL (74-106)
--- NOTE | 2022-12-07 17:45 | HP.PCM.HOS_ITS ---
HPI - General General Date of Admission: 12/07/22 Date of Service: 12/07/22 Chief Complaint: Unresponsiveness HPI Narrative VIVI SAINI, is a 72 M with a history of obstructive sleep apnea, type 2 diabetes mellitus, CKD stage IIIb, paroxysmal atrial fibrillation, and right MCA who presented to [facility] 12/07 with unresponsiveness. At 1203 he was sitting down ready to eat with his insulin and has cameras in the house and noted that he had not moved at all until 1208. He continued to be minimally responsive and EMS was called at 1230. He was given glucose and began to improve and was brought to the ED. In the ED hemoglobin was 9.4 close to baseline, BUN 55 with creatinine of 2.95 which is better than 2 days ago when it was 3.29, troponin 102, and glucose of 55. Patient was given oral glucose and that improved however continued to be low and did require an amp of D50. Hospitalist was called for admission however due to a heart rate persistently at 40. Patient was not hemodynamically unstable and heart rate did not continue to decrease, EKG with no advanced blocks and demonstrated first-degree in sinus rhythm and transferred to a tertiary facility not deemed necessary as patient was on Cardizem, carvedilol, amiodarone, and was hypoglycemic and had multiple reasons for the bradycardia and was not worsening. Spoke with patient with at bedside and she corroborated above history. Patient does not feel his hypoglycemic symptoms and had not noted any symptoms leading up to this event. Denies any chest pain or shortness of breath. Reports he is compliant with all of his medications. Right now feels slightly cold and only other complaint is that he has been having difficulty urinating. He said he will have the pressure and feel fullness but will not be able to empty his bladder. No overt abdominal pain. Denies any changes in his bowels. [facility] Medical History Acute on chronic combined systolic (congestive) and diastolic (congestive) heart failure (02/02/20) Acute right MCA stroke Anemia Cerebral artery occlusion with cerebral infarction Chronic combined systolic and diastolic CHF (congestive heart failure) Chronic low back pain CKD (chronic kidney disease), stage III CVA (cerebral vascular accident) (12/2017) Diabetes mellitus type 1.5, managed as type 1 Essential (primary) hypertension GERD (gastroesophageal reflux disease) History of iron deficiency History of non-ST elevation myocardial infarction (NSTEMI) (02/02/20) Hyperlipidemia 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 (LBBB) longterm current use of 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 Longstanding persistent atrial fibrillation Non-ischemic cardiomyopathy NSVT (nonsustained ventricular tachycardia) Obesity Osteoarthritis Paroxysmal atrial fibrillation Secondary pulmonary arterial hypertension TIA (transient ischemic attack) (12/2017) Home Medications acetaminophen 500 mg tablet 1,000 mg PO 2100 #0 tabs 01/06/22 [Rx Last Taken Unknown] ascorbic acid (vitamin C) 500 mg tablet 1,000 mg PO LUNCH #0 tabs 01/06/22 [Rx Last Taken Unknown] atorvastatin 80 mg tablet 80 mg PO QHS CHOLESTEROL 01/06/22 [History Last Taken 12/13/21 22:00] carvedilol 25 mg tablet 25 mg PO BID heart #180 tabs 01/06/22 [Rx Last Taken Unknown] fenofibrate 54 mg tablet 54 mg PO DAILY #30 tabs 01/06/22 [Rx Last Taken Unknown] ferrous sulfate 325 mg (65 mg iron) tablet 325 mg PO DAILY supplement #30 tabs 01/06/22 [Rx Last Taken 02/02/20] magnesium chloride 64 mg (magnesium chloride) tablet,delayed release (Mag 64) 128 mg PO DAILY #60 tabs 01/06/22 [Rx Last Taken Unknown] docusate sodium 100 mg capsule 100 mg PO DAILY PRN 02/12/22 [History Last Taken Unknown] furosemide 40 mg tablet 40 mg PO DAILY Check with primary doctor 02/12/22 [History Last Taken Unknown] multivitamin (Daily Multi-Vitamin tablet) 1 tab PO DAILY 02/12/22 [History Last Taken Unknown] tamsulosin 0.4 mg capsule 0.4 mg PO BID 02/12/22 [History Last Taken Unknown] aspirin 81 mg capsule 81 mg PO DAILY 02/25/22 [History Last Taken Unknown] buspirone 15 mg tablet 7.5 mg PO BID 02/25/22 [History Last Taken Unknown] diclofenac sodium 1 % topical gel 1 ea topical TID 02/25/22 [History Last Taken Unknown] omeprazole 20 mg capsule,delayed release 40 mg PO DAILY gerd 02/25/22 [History Last Taken Unknown] insulin aspart U-100 100 unit/mL (3 mL) subcutaneous pen See Rx Instructions .Route .COMPLEX diabetes 05/09/22 [History Last Taken Unknown] insulin glargine 100 unit/mL (3 mL) subcutaneous pen See Rx Instructions .Route .COMPLEX diabetes 05/09/22 [History Last Taken Unknown] zonisamide 25 mg capsule (Zonegran) 25 mg PO BID 05/09/22 [History Last Taken Unknown] amiodarone 200 mg tablet 200 mg PO DAILY #30 tabs 06/12/22 [Rx Last Taken Unknown] amlodipine 10 mg tablet 10 mg PO DAILY 07/03/22 [History Last Taken Unknown] apixaban 5 mg tablet (Eliquis) 5 mg PO BID #180 tabs 07/26/22 [Rx Last Taken Unknown] diltiazem HCl 120 mg capsule,extended release 24 hr 120 mg PO DAILY 11/07/22 [History Last Taken Unknown] lisinopril 10 mg tablet 10 mg PO DAILY 11/07/22 [History Last Taken Unknown] lovastatin 40 mg tablet 40 mg PO DAILY 11/07/22 [History Last Taken Unknown] sertraline 50 mg tablet 100 mg PO DAILY 12/07/22 [History Last Taken 12/07/22] Allergy/AdvReac Type Severity Reaction Status Date / Time rofecoxib Allergy Hives Verified 12/07/22 15:23 Family History Mother Heart disease Sister Heart disease Myocardial infarction CVA (cerebral vascular accident) Diabetes Brother CVA (cerebral vascular accident) Surgical History History of back surgery History of knee replacement, total Social History Smoking Status: Never smoker alcohol intake: current alcohol intake frequency: holidays/special occasions only Alcohol type: beer substance use type: does not use caffeine: Yes Type: coffee Number of servings: 2 ROS ROS Narrative General: Denies fever, does feel slightly cold right now HENT: Denies headache, denies stuffy nose, denies sore throat EYES: Denies changes in vision Resp: Denies cough, denies shortness of breath Cardiac: Denies chest pain GI: Denies abdominal pain, denies changes in bowel, denies nausea at this time but did have 1 episode of emesis after CT he reports : Reports feeling like he has to pee but gets very little out Extremity: Denies swelling MSK: Chronic left-sided weakness but able to move Neuro: No changes Numbness or tingling Heme: Denies any bleeding or bruising Skin: Denies rashes Psychiatric: No complaints voiced Vital Signs Vital Signs Vital Signs: 12/07/22 15:24 12/07/22 15:47 12/07/22 16:31 Temperature 97.8 F Temperature Source Temporal Pulse Rate 39 L 39 L 39 L Respiratory Rate 14 16 16 Blood Pressure 104/60 110/60 108/57 L Blood Pressure Mean 74 76 74 Pulse Ox 96 99 96 Oxygen Delivery Method Room Air Room Air Room Air Weight Weight: 112.9 kg Body Mass Index (BMI) 36.7 Physical Exam Narrative General: Alert, oriented, no apparent distress HEENT: Atraumatic, normocephalic Eyes: Anicteric, normal conjunctiva, extraocular movements grossly intact Neck: Supple Respiratory: Clear to auscultation bilaterally, normal respiratory effort Cardiovascular: Heart rate of 40, regular rhythm GI: Soft, nontender, nondistended Extremities: No edema Musculoskeletal: Moving all extremities Neuro: Weaker on left compared to right, chronic Skin: No rashes appreciated Psych: Cooperative Results Lab / Micro Data Result Diagrams: 12/07/22 15:54 12/07/22 15:54 Labs: Laboratory Results - last 24 hr 12/07/22 15:28: POC Glucose 55 L 12/07/22 15:54: WBC 8.6, RBC 3.02 L, Hgb 9.4 L, Hct 28.9 L, MCV 95.7 H, MCH 31.1, MCHC 32.5, RDW Std Deviation 45.1 H, RDW Coeff of Whitney 12.8, Plt Count 217, MPV 11.5, Immature Gran % (Auto) 0.500, Neut % (Auto) 82.0 H, Lymph % (Auto) 6.1 L, [place] % (Auto) 8.5, Eos % (Auto) 2.4, Baso % (Auto) 0.5, Absolute Neuts (auto) 7.1, Absolute Lymphs (auto) 0.53 L, Nucleated RBC % 0, Differential Comment SCANNED 12/07/22 15:54: Sodium 141, Potassium 3.8, Chloride 107, Carbon Dioxide 26.0, Anion Gap 8, BUN 55 H, Creatinine 2.95 H, Estim Creat Clear Calc 22.63, Est GFR (MDRD) Af Amer 27 L, Est GFR (MDRD) Non-Af 22 L, BUN/Creatinine Ratio 18.6, Glucose 82, Calcium 9.5, Magnesium 2.7 H, Troponin I High Sens 102 H 12/07/22 16:15: POC Glucose 63 L Radiology Impression Brain CT 12/07/22 15:46 IMPRESSION: 1. No acute intracranial abnormality. There has been no significant change from the reference examination. 2. Remote right MCA infarct which is stable. Electronically Signed: Amaury Rush MD at 16:38 EDT , Assessment & Plan Assessment/Plan (1) Bradycardia: (2) WANDA (obstructive sleep apnea): (3) CKD (chronic kidney disease), stage III: QUALIFIERS: Chronic kidney disease stage 3 subtype: stage 3b (GFR 30-44) Qualified Code(s): N18.32 - Chronic kidney disease, stage 3b (4) Paroxysmal atrial fibrillation: (5) BPH (benign prostatic hyperplasia): QUALIFIERS: Lower urinary tract symptom presence: symptoms present Lower urinary tract symptom detail: urinary hesitancy Qualified Code(s): N40.1 - Benign prostatic hyperplasia with lower urinary tract symptoms; R39.11 - Hesitancy of micturition (6) Acute right MCA stroke: PLAN: Plan #Bradycardia -Suspect combination of hypoglycemia and iatrogenic with amiodarone, diltiazem, Coreg -EKG with first-degree block and left bundle branch block -Admit to telemetry -Consistently heart rate of 40 or greater -Do suspect that this will improve with improving glucose as well as amiodarone, diltiazem, Coreg getting out of his system -If no improvement or if worsening will give a dose of glucagon however conc erned that he could go into A-fib with RVR if reversing hypoglycemia as well as beta-dhruv and calcium channel dhruv -Blood pressure stable, patient asymptomatic, do not feel he needs transfer to tertiary facility at this time -Check echocardiogram -We will check TSH #Unresponsiveness -Secondary to hypoglycemia, improved with glucose -Has not seemed to be impacted by heart rate -Patient awake and alert #Elevated troponin -Secondary to decreased clearance due to CKD versus NSTEMI type II, very low suspicion for type I -Troponin 105, will trend -We will check echocardiogram #Difficulty with urination with history of BPH -We will check UA -Bladder scan -Continue tamsulosin at this time #Paroxysmal atrial fibrillation -Continue anticoagulation -We will hold beta-dhruv, amiodarone, diltiazem -As bradycardia improving will add back amiodarone and proceed cautiously #CKD stage IIIb -Avoid nephrotoxic agents -Appears to be at baseline -I's and O's, daily weights #Type 2 diabetes mellitus -Glucose checks and low-dose sliding scale insulin, given glucose continues to be low we will start off with every 2 glucoses x3 and then to every 4 -Hold long-acting for today while checking frequent glucoses, will likely start back tomorrow morning with a much smaller dose -We will also have D50 as needed #History of right MCA stroke -Continue Eliquis and aspirin -Continue statin -We will consult PT and OT -Does have some residual left-sided weakness #WANDA -cpap qhs #DVT ppx: Continue Eliquis Ana Loyd MD Time spent in the patient's overall evaluation,decision-making process, review of diagnostic data, adjustment of management, discussion with other providers, nursing nursing and ancillary staff involved in patient's care documentation, 60 Minutes Charges/Coding Visit Charges Inpatient E&M: 83281 Init Hosp L2
[2022-12-07] MEDS: Dextrose 50%-Water 25 GM/50 ML DISP.SYRIN IV (18:00)
[2022-12-07 18:10] LABS: Bedside Glucose 48 mg/dL (74-106)
[2022-12-07 18:45] LABS: Troponin-I HS 94 pg/mL (3.0-78.0)
[2022-12-07 19:25] LABS: Bedside Glucose 164 mg/dL (74-106)
[2022-12-07] MEDS: Tamsulosin HCl 0.4 MG Capsule PO (22:03)
[2022-12-07] MEDS: APIXABAN 5 MG TABLET PO (22:04)
[2022-12-07] MEDS: Atorvastatin Calcium 80 MG Tablet PO (22:04)
[2022-12-08] MEDS: Acetaminophen 325 MG Tablet 650 MG PO (00:16)
[2022-12-08 00:51] LABS: Bedside Glucose 146 mg/dL (74-106)
[2022-12-08 02:46] LABS: Bedside Glucose 184 mg/dL (74-106)
[2022-12-08 04:42] VITALS: BP 137/63; PULSE 56; RESP 18; TEMP 36.8; O2SAT 96
[2022-12-08 06:00] VITALS: BMI 35.3
[2022-12-08 07:20] LABS: Bedside Glucose 114 mg/dL (74-106)
[2022-12-08] MEDS: Pantoprazole Sodium 40 MG Tablet PO (08:01)
[2022-12-08] MEDS: Sertraline 50 MG Tablet PO ×2 (08:01→09:51)
[2022-12-08] MEDS: Fenofibrate 48 MG Tablet PO (08:01)
[2022-12-08] MEDS: APIXABAN 5 MG TABLET PO (08:01)
[2022-12-08] MEDS: Aspirin 81 MG TAB.CHEW PO (08:01)
[2022-12-08] MEDS: Tamsulosin HCl 0.4 MG Capsule PO (08:02)
[2022-12-08] MEDS: Ferrous Sulfate 325 MG Tablet PO (08:02)
[2022-12-08 08:36] LABS: Absolute Lymphocyte Count 0.61 X10^3/uL (0.83-4.51); Absolute Neutrophil Count 6.7 X10^3/uL (2.0-7.7); Basophil# 0.02 X10^3/uL; Basophil% 0.2 % (0-1); Eosinophil# 0.18 X10^3/uL; Eosinophils% 2.1 % (0-5); Hematocrit 26.6 % (40-54); Hemoglobin 8.6 g/dL (13.0-16.5); Lymphocyte # 0.61 X10^3/ul (0.83-4.51); Lymphocyte % 7.2 % (19-41); Mean Corp Hgb Conc 32.3 g/dL (32-36); Mean Corpuscular Hgb 30.7 pg (27.0-32.0); Mean Platelet Vol. 11.8 fl (6.2-12.0); Monocyte# 0.88 X10^3/uL; Monocyte% 10.4 % (0-10); NRBC Flagged by Analyzer 0 % (0-5); Neutrophil # 6.69 X10^3/uL (2.7-7.7); Neutrophil % 79.5 % (47-70); Platelet Count 222 K/mm3 (150-450); RBC Distribution Width CV 12.9 % (11.6-14.6); RBC Distribution Width SD 44.4 fl (35.1-43.9); White Blood Count 8.4 K/mm3 (4.4-11.0)
[2022-12-08 09:11] LABS: AST(SGOT) 21 U/L (15-37); Alanine Aminotransfer ALT/SGPT 18 U/L (16-61); Albumin, Serum 3.7 g/dL (3.2-5.0); Alkaline Phosphatase 40 U/L (45-117); Anion Gap 7 (5-15); BUN 51 mg/dL (7-18); BUN/Creat Ratio 18.1 RATIO (10-20); Chloride 107 mmol/L (98-107); Creatinine, Serum 2.82 mg/dL (0.70-1.30); EST Glomerular Filtration Rate 24 mL/min (>60); Est Glom Filt Rate - Afr Amer 29 mL/min (>60); Estimated Creatinine Clearance 23.68 ml/min; Globulin 3.6 g/dL (2.2-4.2); Glucose 114 mg/dL (74-106); Potassium 3.6 mmol/L (3.5-5.1); Protein, Total 7.3 g/dL (6.4-8.2); Sodium Level 140 mmol/L (136-145); Thyroid Stim Hormone (TSH) 1.04 uIU/mL (0.358-3.74)
--- NOTE | 2022-12-08 09:23 | CASEMGMT ---
ANA PAULA OCHOA Assessment: Face to Face with pt for initial transition planning/care coordination assessment. RN DON introduced self and role at [facility], pt voices understanding and consents to assessment. Pt is A/O x4 and answers all questions appropriately at this time. Pt sitting up in chair in no distress. Care providers, pharmacy, and demographics verified/updated. Admitting Dx:bradycardia, hypoglycemia PCP: Matheus Specialists: Laura, nephro; Wes, cardio; Rodolfo cardio Preferred Pharmacy: [facility] Insurance: [email or web address] [facility] Prescription Benefit: yes LNOK:Magaly Irwin, Living Arrangements: Pt lives with in a mobile home with 4-5 steps to enter. Pt states his assists with bathing. Pt denies concerns at home. DME/HHC/SNF: Pt has a bath chair, cane and walker, Barbie 2 CGM monitoring with supplies. Pt has insulin with sufficient supply. Pt has had [facility] HHC in the past and denies SNF stays. Pt states no concerns with going home at time of dc. present in room at the end of the assessment. Pt states no further concerns/needs. CM to follow.Advised pt to ask CM if any further question/concerns/needs arise, voices understanding. Pt Goal: Home Plan:Home
[2022-12-08 09:44] VITALS: BP 125/58; PULSE 60; RESP 18; TEMP 36.8; O2SAT 95
[2022-12-08] MEDS: Amiodarone 200 MG Tablet PO (09:49)
[2022-12-08] MEDS: Lisinopril 10 MG Tablet PO (09:49)
[2022-12-08] MEDS: Furosemide 20 MG Tablet PO (09:49)
[2022-12-08] MEDS: busPIRone 15 MG TABLET 7.5 MG PO (10:41)
[2022-12-08 13:30] VITALS: BP 118/62; PULSE 57; RESP 18; TEMP 36.6; O2SAT 98
--- NOTE | 2022-12-08 13:31 | DS.PCM_ITS ---
Providers Date of Admission: 12/07/22 Date of Discharge: 12/08/22 Primary Care Physician: Dr. Lester Jarvis MD Reason For Visit: BRADYCARDIA, HYPOGLYCEMIA Diagnosis Discharge Diagnosis (1) Bradycardia: Status: Acute Code(s): R00.1 - Bradycardia, unspecified (2) WANDA (obstructive sleep apnea): Status: Acute Code(s): G47.33 - Obstructive sleep apnea (adult) (pediatric) (3) CKD (chronic kidney disease), stage III: Status: Chronic Code(s): N18.3 - Chronic kidney disease, stage 3 (moderate) Qualifiers: Chronic kidney disease stage 3 subtype: stage 3b (GFR 30-44) Qualified Code(s): N18.32 - Chronic kidney disease, stage 3b (4) Paroxysmal atrial fibrillation: Status: Acute Code(s): I48.0 - Paroxysmal atrial fibrillation (5) BPH (benign prostatic hyperplasia): Status: Acute Code(s): N40.0 - Benign prostatic hyperplasia without lower urinary tract symptoms Qualifiers: Lower urinary tract symptom detail: urinary hesitancy Lower urinary tract symptom presence: symptoms present Qualified Code(s): N40.1 - Benign prostatic hyperplasia with lower urinary tract symptoms; R39.11 - Hesitancy of micturition (6) Acute right MCA stroke: Status: Acute Code(s): I63.511 - Cerebral infarction due to unspecified occlusion or stenosis of right middle cerebral artery Plan #Sinus Bradycardia - suspect iatrogenic #Unresponsiveness 2/2 hypoglycemia #Elevated troponin #History of BPH #Paroxysmal atrial fibrillation #CKD stage IIIb #Type 2 diabetes mellitus #History of right MCA stroke #WANDA Medications at Discharge Home Medications acetaminophen 500 mg tablet 1,000 mg PO 2100 #0 tabs 01/06/22 ascorbic acid (vitamin C) 500 mg tablet 1,000 mg PO LUNCH #0 tabs 01/06/22 atorvastatin 80 mg tablet 80 mg PO QHS CHOLESTEROL 01/06/22 fenofibrate 54 mg tablet 54 mg PO DAILY #30 tabs 01/06/22 ferrous sulfate 325 mg (65 mg iron) tablet 325 mg PO DAILY supplement #30 tabs 01/06/22 magnesium chloride 64 mg (magnesium chloride) tablet,delayed release (Mag 64) 128 mg PO DAILY #60 tabs 01/06/22 docusate sodium 100 mg capsule 100 mg PO DAILY PRN Constipation 02/12/22 multivitamin (Daily Multi-Vitamin tablet) 1 tab PO DAILY 02/12/22 tamsulosin 0.4 mg capsule 0.4 mg PO BID 02/12/22 aspirin 81 mg capsule 81 mg PO DAILY 02/25/22 buspirone 15 mg tablet 7.5 mg PO BID 02/25/22 diclofenac sodium 1 % topical gel 1 ea topical TID 02/25/22 omeprazole 20 mg capsule,delayed release 40 mg PO DAILY gerd 02/25/22 zonisamide 25 mg capsule (Zonegran) 50 mg PO BID 05/09/22 amiodarone 200 mg tablet 200 mg PO DAILY #30 tabs 06/12/22 amlodipine 10 mg tablet 10 mg PO DAILY 07/03/22 apixaban 5 mg tablet (Eliquis) 5 mg PO BID #180 tabs 07/26/22 lisinopril 10 mg tablet 10 mg PO DAILY 11/07/22 sertraline 50 mg tablet 100 mg PO DAILY 12/07/22 carvedilol 3.125 mg tablet (Coreg) 3.125 mg PO BID #30 tabs 12/08/22 furosemide 40 mg tablet 20 mg PO DAILY Check with primary doctor #30 tabs 12/08/22 insulin aspart U-100 100 unit/mL (3 mL) subcutaneous pen See Rx Instructions .Route .COMPLEX diabetes 30 days #15 mL 12/08/22 Hospital Course Summary of Care Provided Minutes Spent on Discharge: 33 Hospital Course: VIVI SAINI, is a 72 M with a history of obstructive sleep apnea, type 2 diabetes mellitus, CKD stage IIIb, paroxysmal atrial fibrillation, and right MCA who presented to [facility] 12/07 with unresponsiveness.? At 1203 he was sitting down ready to eat with his insulin and has cameras in the house and noted that he had not moved at all until 1208.? He continued to be minimally responsive and EMS was called at 1230.? He was given glucose and began to improve and was brought to the ED.? In the ED hemoglobin was 9.4 close to baseline, BUN 55 with creatinine of 2.95 which is better than 2 days ago when it was 3.29, troponin 102, and glucose of 55.? Patient was given oral glucose and that improved however continued to be low and did require an amp of D50.? Hospitalist was called for admission however due to a heart rate persistently at 40.? Patient was not hemodynamically unstable and heart rate did not continue to decrease, EKG with no advanced blocks and demonstrated first-degree in sinus rhythm and transferred to a tertiary facility not deemed necessary as patient was on Cardizem, carvedilol, amiodarone, and was hypoglycemic and had multiple reasons for the bradycardia and was not worsening. He was admitted and his insulin and amiodarone, carvedilol, diltiazem held. Glucose is improved and maintained in the 100s and heart rate improved to 60s. Suspect that both bradycardia and hypoglycemia were iatrogenic and medication related. Discussed extensively with him and his at bedside. On day of discharge she had no complaints and was feeling much better. Discussed discharge versus watchful waiting for 1 more day and they opted for discharge. He was observed after receiving his amiodarone and lisinopril. Discharge instructions discussed at length with him and his . Discharge instructions as followed: -You were admitted for low blood sugar and low heart rate -Your home insulin has been changed, please continue to check your glucose as you previously were and implement sliding scale insulin with meals. Sliding scale that is recommended is included at the bottom of these instructions in bold. Once your glucoses are consistently over 200 for 24 hours and you are eating well please start 5 units of long-acting insulin at bedtime and continue glucose checks and sliding scale insulin. If your glucose is below 70 please eat or drink 15 to 20 grams of fast-acting sugar. This may be 3 to 4 glucose tablets, 4 ounces (half a cup) of fruit juice or regular (nondiet) soda, or 1 tablespoon of honey and then call your prescribing physician for further instructions. -It is strongly advised that you establish with an spring floor service worker. Contact information for local spring floor service worker, Dr. Christina, provided -Your amiodarone was continued but your carvedilol and Cardizem have been held due to your low heart rate.? Please check your heart rate twice daily.? Once you are heart rate is consistently over 70 bpm resume carvedilol at 3.325 mg twice daily and continue to monitor. *You will no longer be taking 25mg of carvedilol twice daily, there has been a new script sent to your preferred pharmacy on file. Please do not take both of these together.* If your heart rate is less than 50 bmp please do not take this medication. -Due to these changes it will be very important for you to follow-up with your heart doctor as well as your primary care physician upon discharge, please call their office upon discharge to discuss these changes and get a hospital follow- up appointment -Your amlodipine has been held due to somewhat low blood pressures, ultimately will likely continue this but please discuss with your primary care physician prior to resuming. -You will continue your Lasix at half the dose, please weigh yourself daily.? If you gain more than 1 pound in 1 day or 5 pounds in 1 week please contact your prescribing physician as you will likely need to increase the dose of this medication -Please call your primary care provider's office upon discharge to schedule a hospital follow up within 1 week. -For any concerning signs or symptoms please call 911 or proceed to the nearest emergency department SLIDING SCALE INSULIN INSTRUCTIONS If 150-209 mg/dl = 1 unit; If 210-269 mg/dl = 2 units; If 270-329 mg/dl = 3 units; If 330-389 mg/dl = 4 units; If 390-449 mg/dl = 5 units; If Greater than 449 call physician Physical Exam Narrative General: Alert, oriented, no apparent distress HEENT: Atraumatic, normocephalic Eyes: Anicteric, normal conjunctiva, extraocular movements grossly intact Neck: Supple Respiratory: Clear to auscultation bilaterally, normal respiratory effort Cardiovascular: Regular rate and rhythm GI: Soft, nontender, nondistended Extremities: No edema Musculoskeletal: Moving all extremities Neuro: No overt focal neurological deficits Skin: No rashes appreciated Psych: Cooperative Weight / BMI Weight Weight: 108.6 kg Body Mass Index (BMI) 35.3 ABG / Lab / Microbiology Data Result Diagrams: 12/08/22 08:07 12/08/22 08:07 Laboratory: Laboratory Results - last 24 hr 12/07/22 15:28: POC Glucose 55 L 12/07/22 15:54: WBC 8.6, RBC 3.02 L, Hgb 9.4 L, Hct 28.9 L, MCV 95.7 H, MCH 31.1, MCHC 32.5, RDW Std Deviation 45.1 H, RDW Coeff of Whitney 12.8, Plt Count 217, MPV 11.5, Immature Gran % (Auto) 0.500, Neut % (Auto) 82.0 H, Lymph % (Auto) 6.1 L, Traill % (Auto) 8.5, Eos % (Auto) 2.4, Baso % (Auto) 0.5, Absolute Neuts (auto) 7.1, Absolute Lymphs (auto) 0.53 L, Nucleated RBC % 0, Differential Comment SCANNED 12/07/22 15:54: Sodium 141, Potassium 3.8, Chloride 107, Carbon Dioxide 26.0, Anion Gap 8, BUN 55 H, Creatinine 2.95 H, Estim Creat Clear Calc 22.63, Est GFR (MDRD) Af Amer 27 L, Est GFR (MDRD) Non-Af 22 L, BUN/Creatinine Ratio 18.6, Glucose 82, Calcium 9.5, Magnesium 2.7 H, Troponin I High Sens 102 H 12/07/22 16:15: POC Glucose 63 L 12/07/22 17:53: POC Glucose 48 L 12/07/22 18:15: Troponin I High Sens 94 H 12/07/22 19:04: POC Glucose 164 H 12/07/22 22:01: POC Glucose 146 H 12/08/22 02:21: POC Glucose 184 H 12/08/22 06:59: POC Glucose 114 H 12/08/22 08:07: Sodium 140, Potassium 3.6, Chloride 107, Carbon Dioxide 26.0, Anion Gap 7, BUN 51 H, Creatinine 2.82 H, Estim Creat Clear Calc 23.68, Est GFR (MDRD) Af Amer 29 L, Est GFR (MDRD) Non-Af 24 L, BUN/Creatinine Ratio 18.1, Glucose 114 H, Calcium 9.0, Total Bilirubin 0.40, AST 21, ALT 18, Alkaline Phosphatase 40 L, Total Protein 7.3, Albumin 3.7, Globulin 3.6, Albumin/Globulin Ratio 1.0, TSH 1.04 12/08/22 08:07: WBC 8.4, RBC 2.80 L, Hgb 8.6 L, Hct 26.6 L, MCV 95.0 H, MCH 30.7, MCHC 32.3, RDW Std Deviation 44.4 H, RDW Coeff of Whitney 12.9, Plt Count 222, MPV 11.8, Immature Gran % (Auto) 0.600, Neut % (Auto) 79.5 H, Lymph % (Auto) 7.2 L, Traill % (Auto) 10.4 H, Eos % (Auto) 2.1, Baso % (Auto) 0.2, Absolute Neuts (auto) 6.7, Absolute Lymphs (auto) 0.61 L, Nucleated RBC % 0 Radiography Diagnostic Testing: Radiology Impression Brain CT 12/07/22 15:46 IMPRESSION: 1. No acute intracranial abnormality. There has been no significant change from the reference examination. 2. Remote right MCA infarct which is stable. Electronically Signed: Amaury Rush MD at 16:38 EDT , D/C Instructions Discharge Diet: No restrictions Meaningful Use Info Meaningful Use Diagnoses (Choose all that apply): None applicable Discharge Plan Admission Admit Date/Time: 12/07/22 17:45 Primary Reason for Your Visit: Low blood glucose Attending Provider: Ana Loyd Primary Care Provider: Lester Jarvis Instructions Patient Instructions: Hypoglycemia (Low Blood Sugar), ED Bradycardia Additional Instructions / Restrictions: DISCHARGE INSTRUCTIONS PLEASE READ *Please take this with you to your next doctors appointment* -You were admitted for low blood sugar and low heart rate -Your home insulin has been changed, please continue to check your glucose as you previously were and implement sliding scale insulin with meals. Sliding scale that is recommended is included at the bottom of these instructions in bold. Once your glucoses are consistently over 200 for 24 hours and you are eating well please start 5 units of long-acting insulin at bedtime and continue glucose checks and sliding scale insulin. If your glucose is below 70 please eat or drink 15 to 20 grams of fast-acting sugar. This may be 3 to 4 glucose tablets, 4 ounces (half a cup) of fruit juice or regular (nondiet) soda, or 1 tablespoon of honey and then call your prescribing physician for further instructions. -It is strongly advised that you establish with an spring floor service worker. Contact information for local spring floor service worker, Dr. Christina, provided -Your amiodarone was continued but your carvedilol and Cardizem have been held due to your low heart rate. Please check your heart rate twice daily. Once you are heart rate is consistently over 70 bpm resume carvedilol at 3.325 mg twice daily and continue to monitor. *You will no longer be taking 25mg of carvedilol twice daily, there has been a new script sent to your preferred pharmacy on file. Please do not take both of these together.* If your heart rate is less than 50 bmp please do not take this medication. -Due to these changes it will be very important for you to follow-up with your heart doctor as well as your primary care physician upon discharge, please call their office upon discharge to discuss these changes and get a hospital follow- up appointment -Your amlodipine has been held due to somewhat low blood pressures, ultimately will likely continue this but please discuss with your primary care physician prior to resuming. -You will continue your Lasix at half the dose, please weigh yourself daily. If you gain more than 1 pound in 1 day or 5 pounds in 1 week please contact your prescribing physician as you will likely need to increase the dose of this medication -Please call your primary care provider's office upon discharge to schedule a hospital follow up within 1 week. -For any concerning signs or symptoms please call 911 or proceed to the nearest emergency department SLIDING SCALE INSULIN INSTRUCTIONS If 150-209 mg/dl = 1 unit; If 210-269 mg/dl = 2 units; If 270-329 mg/dl = 3 units; If 330-389 mg/dl = 4 units; If 390-449 mg/dl = 5 units; If Greater than 449 call physician; Discharge Orders/Prescriptions Prescriptions: New carvedilol [Coreg] 3.125 mg tablet 3.125 mg PO BID Qty: 30 0RF Rx Instructions: must administer with a meal/food. DO NOT BEGIN UNTIL HEART RATE >70 X2 consecutively Continued multivitamin [Daily Multi-Vitamin] Tablet 1 tab PO DAILY tamsulosin 0.4 mg capsule 0.4 mg PO BID Rx Instructions: Take daily with supper docusate sodium 100 mg capsule 100 mg PO DAILY PRN (Reason: Constipation) lisinopril 10 mg tablet 10 mg PO DAILY fenofibrate 54 mg tablet 54 mg PO DAILY Qty: 30 0RF acetaminophen 500 mg Tablet 1,000 mg PO 2100 Qty: 0 0RF ascorbic acid (vitamin C) 500 mg Tablet 1,000 mg PO LUNCH Qty: 0 0RF Rx Instructions: ALWAYS take with the iron supplement and a meal Mag 64 64 mg Tablet,Delayed Release (Dr/Ec) 128 mg PO DAILY Qty: 60 0RF atorvastatin 80 mg Tablet 80 mg PO QHS ferrous sulfate 325 mg (65 mg iron) tablet 325 mg PO DAILY Qty: 30 0RF Rx Instructions: Take with a meal and with Vitamin C once a day. buspirone 15 mg Tablet 7.5 mg PO BID Rx Instructions: 1/2 TAB BID FOR 2 WEEKS THEN 1 TAB BID diclofenac sodium 1 % Gel 1 ea TOPICAL TID aspirin 81 mg Capsule 81 mg PO DAILY omeprazole 20 mg capsule,delayed release(DR/EC) 40 mg PO DAILY zonisamide [Zonegran] 25 mg capsule 50 mg PO BID sertraline 50 mg tablet 100 mg PO DAILY amiodarone 200 mg tablet 200 mg PO DAILY Qty: 30 6RF Eliquis 5 mg tablet 5 mg PO BID Qty: 180 4RF Changed furosemide 40 mg tablet 20 mg PO DAILY Qty: 30 0RF insulin aspart U-100 100 unit/mL (3 mL) insulin pen See Rx Instructions .ROUTE .COMPLEX 30 Days Qty: 15 0RF Rx Instructions: Please use sliding scale provided Held amlodipine 10 mg tablet 10 mg PO DAILY Hold Instructions: Resume on 12/19/22. Please discuss with your primary care physician prior to resuming Discontinued insulin glargine 100 unit/mL (3 mL) insulin pen See Rx Instructions .ROUTE .COMPLEX Rx Instructions: 36 units in AM 16 units at bedtime lovastatin 40 mg tablet 40 mg PO DAILY diltiazem HCl 120 mg capsule,extended release 24hr 120 mg PO DAILY carvedilol 25 mg tablet 25 mg PO BID Qty: 180 3RF Referrals / Follow Up: Tommy Harvey MD [Med Staff - Active Staff] - See Referral Note (You will need to follow-up with cardiology upon discharge, please call the office of Dr. Harvey upon discharge to schedule your hospital follow-up appointment (ph [phone])) Lester Jarvis MD [Primary Care Provider] - Within 1 Week Delonte Christina MD [Med Staff - Courtesy Staff] - See Referral Note (It is strongly advised that if you do not already see an spring floor service worker that you establish with one. Contact information for local spring floor service worker provided) Disposition Disposition (needs filled in before D/C Order can be placed): Home, Self Care Charges/Coding Visit Charges Inpatient E&M: 84233 Disch Hosp >30min
== END 2022-12-08 14:44 | disposition home or self-care (01) | DRG 308 ==
LOC: ED 17:49 → PCU 18:14
PROVIDERS: Admitting Provider Internal Medicine; Emergency Provider Emergency Medicine; PCP Family Medicine; Visit Provider Internal Medicine
DX: I48.0 Paroxysmal atrial fibrillation (principal); I63.511 Cerebral infarction due to unspecified occlusion or stenosis of right middle cerebral artery; I50.42 Chronic combined systolic (congestive) and diastolic (congestive) heart failure; I13.0 Hypertensive heart and chronic kidney disease with heart failure and stage 1 through stage 4 chronic kidney disease, or unspecified chronic kidney disease; E13.22 Other specified diabetes mellitus with diabetic chronic kidney disease; E13.649 Other specified diabetes mellitus with hypoglycemia without coma; E11.22 Type 2 diabetes mellitus with diabetic chronic kidney disease; D64.9 Anemia, unspecified; Z79.4 Long term (current) use of insulin; N18.32 Chronic kidney disease, stage 3b; I44.7 Left bundle-branch block, unspecified; E78.5 Hyperlipidemia, unspecified; G47.33 Obstructive sleep apnea (adult) (pediatric); R39.11 Hesitancy of micturition; N40.1 Benign prostatic hyperplasia with lower urinary tract symptoms; Z79.01 Long term (current) use of 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s; Z79.82 Long term (current) use of aspirin
CPT/HCPCS: 70450; 80048; 80053; 82962; 83735; 84443; 84484; 85025; 93005; 97162; 97165; 99285

== ENCOUNTER → 2023-01-22 | Outpatient (CLI) | payer MEDICARE, BC, SELFPAY ==
[2023-01-22 16:38] LABS: Anion Gap 7 (5-15); BUN 41 mg/dL (7-18); BUN/Creat Ratio 16.1 RATIO (10-20); Calcium,Total 9.5 mg/dL (8.5-10.1); Chloride 103 mmol/L (98-107); Creatinine, Serum 2.54 mg/dL (0.70-1.30); EST Glomerular Filtration Rate 27 mL/min (>60); Est Glom Filt Rate - Afr Amer 32 mL/min (>60); Glucose 159 mg/dL (74-106); Potassium 4.2 mmol/L (3.5-5.1); Sodium Level 138 mmol/L (136-145)
== END | disposition home or self-care (01) ==
LOC: LAB 14:45
PROVIDERS: PCP Family Medicine; Referring Provider Nurse Practitioner Gerontology; Visit Provider Nurse Practitioner Gerontology
DX: R06.02 Shortness of breath (principal); N18.9 Chronic kidney disease, unspecified
CPT/HCPCS: 36415; 80048

== ENCOUNTER → 2023-01-29 | Outpatient (CLI) | payer MEDICARE, BC, SELFPAY ==
--- NOTE | 2023-01-29 12:30 | ECHOCS_ITS ---
Reason For Study: SOB Procedure This was a 2D Doppler, Color Flow transthoracic echocardiogram. The study was technically difficult. Contrast injection was performed. Exam performed in department. Left Ventricle Normal LV size. Left ventricular systolic function is normal. The estimated ejection fraction is 60 %. No regional wall motion abnormalities noted. Right Ventricle Normal RV size. Normal systolic function. Atria Normal left atrium. Normal right atrium. Mitral Valve Normal mitral valve. Tricuspid Valve Normal tricuspid valve. Aortic Valve Trisinus/trileaflet aortic valve. Mild focal aortic valve calcification. Pulmonic Valve Normal pulmonic valve. Great Vessels Normal aortic root. The pulmonary artery is normal size. Normal inferior vena cava. Pericardium/Pleural No pericardial effusion. Medication 22 gauge I.V. with prn adaptor inserted into left arm. Diluted definity 1.5ml given slow IV push to enhance endocardial definition. MMode/2D Measurements & Calculations LVIDd: 5.2 cm IVSd: 1.4 cm Ao root diam: 3.8 cm LVIDs: 3.5 cm LVPWd: 1.5 cm LA dimension: 4.2 cm FS: 33.7 % LAV(MOD-sp4): 95.6 ml LVAd ap4: 42.4 cm2 SV(MOD-sp4): 102.3 ml LVLd ap4: 8.5 cm EDV(MOD-sp4): 174.6 ml EDV(sp4-el): 180.1 ml LVAs ap4: 26.6 cm2 LVLs ap4: 7.8 cm ESV(MOD-sp4): 72.3 ml ESV(sp4-el): 77.3 ml EF(MOD-sp4): 58.6 % EF(sp4-el): 57.1 % SV(sp4-el): 102.9 ml LA A4 area: 26.3 cm2 RA A4 area: 21.4 cm2 Time Measurements MV dec time: 0.19 sec Doppler Measurements & Calculations MV E max dontrell: 118.2 cm/sec Lat Peak E' Dontrell: 12.9 cm/sec Med Peak E' Dontrell: 9.2 cm/sec MV A max dontrell: 52.5 cm/sec E/E' lat: 9.2 E/E' med: 12.8 MV E/A: 2.3 MV V2 max: 119.2 cm/sec MV P1/2t max dontrell: 120.5 cm/sec Ao V2 max: 145.6 cm/sec MV max P.7 mmHg MV P1/2t: 54.6 msec Ao max P.5 mmHg MV V2 mean: 68.4 cm/sec Ao V2 mean: 97.8 cm/sec MV mean P.3 mmHg MV dec slope: 647.0 cm/sec2 Ao mean P.4 mmHg MV V2 VTI: 25.4 cm MVA(P1/2t): 4.0 cm2 Ao V2 VTI: 31.8 cm AV (velocity ratio): 0.75 LV V1 max: 117.8 cm/sec PA V2 max: 128.3 cm/sec TR max dontrell: 292.1 cm/sec LV V1 max P.6 mmHg PA V2 mean: 80.7 cm/sec TR max P.1 mmHg LV V1 mean P.2 mmHg LV V1 mean: 82.8 cm/sec LV V1 VTI: 23.8 cm ECHO/Echo Complete W/ Contrast Interpretation Summary Normal LV size. Left ventricular systolic function is normal. The estimated ejection fraction is 60 %. Contrast injection was performed. Ordering Physician: Elizabeth Garay Referring Physician: Lester Jarvis Performed By: Catalino Osorio RCS
== END | disposition home or self-care (01) ==
LOC: CVS 12:28
PROVIDERS: PCP Family Medicine; Referring Provider Internal Medicine Cardiovascular Disease; Visit Provider Internal Medicine Cardiovascular Disease
DX: R06.02 Shortness of breath (principal); I48.0 Paroxysmal atrial fibrillation
CPT/HCPCS: 93306; Q9957; A4216; C8929

== ENCOUNTER 2023-02-28 16:05 | Inpatient (IN) | payer BC, MEDICARE, SELFPAY ==
[2023-02-28 16:24] VITALS: BP 138/70; PULSE 92; RESP 18; TEMP 37.1; O2SAT 97; BMI 36.4
[2023-02-28 18:19] VITALS: BMI 35.7
[2023-02-28 18:30] VITALS: BP 138/70; PULSE 92; RESP 18; TEMP 37.1; O2SAT 97
[2023-02-28 19:25] VITALS: O2SAT 97
[2023-02-28] MEDS: Furosemide 40 MG Tablet PO (19:43)
[2023-02-28] MEDS: Insulin Glargine-YFGN 100 UNIT/ML Pen 25 UNIT SC (21:30)
[2023-02-28 21:41] LABS: Bedside Glucose 217 mg/dL (74-106)
[2023-02-28 22:00] VITALS: BP 142/72; PULSE 82; RESP 16; TEMP 36.6; O2SAT 95
[2023-02-28] MEDS: Tamsulosin HCl 0.4 MG Capsule PO (22:42)
[2023-02-28] MEDS: Senna/Docusate Sodium 1 Tablet 2 TABLET PO (22:42)
[2023-02-28] MEDS: Zonisamide 50 MG Capsule PO (22:42)
[2023-02-28] MEDS: APIXABAN 5 MG TABLET PO (22:43)
[2023-02-28] MEDS: busPIRone 15 MG TABLET 7.5 MG PO (22:43)
[2023-02-28] MEDS: Atorvastatin Calcium 80 MG Tablet PO (22:43)
[2023-02-28 22:45] VITALS: BMI 36.4
[2023-03-01 00:30] VITALS: BP 142/76; PULSE 88; RESP 16; TEMP 36.7; O2SAT 95
[2023-03-01] MEDS: oxyCODONE 5 MG Tablet PO ×2 (01:56→14:11)
[2023-03-01 05:47] LABS: Hematocrit 26.2 % (40-54); Hemoglobin 8.4 g/dL (13.0-16.5); Mean Corp Hgb Conc 32.1 g/dL (32-36); Mean Corpuscular Hgb 30.3 pg (27.0-32.0); Mean Corpuscular Volume 94.6 fL (80-94); Mean Platelet Vol. 10.2 fl (6.2-12.0); Platelet Count 269 K/mm3 (150-450); RBC Distribution Width CV 12.6 % (11.6-14.6); RBC Distribution Width SD 43.8 fl (35.1-43.9); Red Blood Count 2.77 M/mm3 (4.6-6.2); White Blood Count 8.8 K/mm3 (4.4-11.0)
[2023-03-01 06:00] VITALS: BP 136/78; PULSE 90; RESP 16; TEMP 36.6; O2SAT 94
[2023-03-01] MEDS: Acetaminophen 500 MG Tablet 1000 MG PO (06:21)
[2023-03-01] MEDS: 0.9 % NaCl (Sterile) Posiflush 10 mL IV (06:23)
[2023-03-01 06:25] LABS: ALB/GLOB Ratio 0.6 RATIO (0.9-2.4); AST(SGOT) 18 U/L (15-37); Alanine Aminotransfer ALT/SGPT 18 U/L (16-61); Albumin, Serum 2.6 g/dL (3.2-5.0); Alkaline Phosphatase 48 U/L (45-117); Anion Gap 5 (5-15); BUN 26 mg/dL (7-18); BUN/Creat Ratio 14.7 RATIO (10-20); Calcium,Total 8.8 mg/dL (8.5-10.1); Chloride 109 mmol/L (98-107); Creatinine, Serum 1.77 mg/dL (0.70-1.30); EST Glomerular Filtration Rate 40 mL/min (>60); Est Glom Filt Rate - Afr Amer 49 mL/min (>60); Estimated Creatinine Clearance 35.96 ml/min; Globulin 4.1 g/dL (2.2-4.2); Glucose 150 mg/dL (74-106); Phosphorus 3.1 mg/dL (2.5-4.9); Potassium 4.6 mmol/L (3.5-5.1); Protein, Total 6.7 g/dL (6.4-8.2); Sodium Level 141 mmol/L (136-145)
[2023-03-01 06:28] LABS: Vancomycin, Random Level 27.7 ug/mL (0.0-15.0)
--- NOTE | 2023-03-01 06:34 | PCM.RX.CS ---
Consult Pharmacy has been consulted to manage selected antiobiotic: Vancomycin Type of Consult: New start Prior Doses of Antibiotics Received/Current Regimen: Medications Discontinued Medications Vancomycin HCl 1,250 mg/ (Sodium Chloride) 275 mls @ 167 mls/hr IV X1 ONE Stop: 02/28/23 23:38 Last Admin: 03/01/23 00:28 Dose: Infused Labs: Sodium 141 mmol/L (136-145) 03/01/23 05:41 Potassium 4.6 mmol/L (3.5-5.1) 03/01/23 05:41 Chloride 109 mmol/L (98-107) H 03/01/23 05:41 Carbon Dioxide 27.0 mmol/L (21.0-32.0) 03/01/23 05:41 Anion Gap 5 (5-15) 03/01/23 05:41 BUN 26 mg/dL (7-18) H 03/01/23 05:41 Creatinine 1.77 mg/dL (0.70-1.30) H 03/01/23 05:41 Est GFR (MDRD) Af Amer 49 mL/min (>60) L 03/01/23 05:41 Est GFR (MDRD) Non-Af 40 mL/min (>60) L 03/01/23 05:41 BUN/Creatinine Ratio 14.7 RATIO (10-20) 03/01/23 05:41 Glucose 150 mg/dL (74-106) H 03/01/23 05:41 Random Vancomycin 27.7 ug/mL (0.0-15.0) H 03/01/23 05:41 Weight used for dosin.58 kg Estimated Creatinine Clearance: 45.8-ABW Goal Trough: 15-20 mcg/mL Pharmacy Plan for Drug Dosing: Pt was transferred to 02/28/23 with a continuing order from [facility] for Vancomycin 1250mg q24h. A continuing dose was given 02/28/23 @2234, and a random level was ordered for the following morning. That result was high at 27.7, but it was drawn just 7 hours post-dose. We will hold any further dosing until another level is drawn 12 hours after the first. Of note, [facility] had an original stop date on the vancomycin therapy as 04/05/23. Pharmacy Service will continue to monitor and adjust dosing as required. Follow-Up Labs: Trough Vancomycin - random Labs to be done on [date and time ordered]: 03/01/23 @2036 random
[2023-03-01 06:47] LABS: Bedside Glucose 149 mg/dL (74-106)
[2023-03-01 07:27] VITALS: BP 131/75; PULSE 94; RESP 18; TEMP 36.7; O2SAT 99
[2023-03-01] MEDS: Aspirin 81 MG TAB.CHEW PO (09:17)
[2023-03-01] MEDS: Carvedilol 3.125 MG TABLET PO ×2 (09:17→17:11)
[2023-03-01] MEDS: Glucerna Shake 120 ML LIQUID PO ×3 (09:17→17:12)
[2023-03-01] MEDS: Fenofibrate 48 MG Tablet PO (09:18)
[2023-03-01] MEDS: Furosemide 40 MG Tablet PO ×2 (09:18→17:10)
[2023-03-01] MEDS: APIXABAN 5 MG TABLET PO ×2 (09:18→19:55)
[2023-03-01] MEDS: Zonisamide 50 MG Capsule PO ×2 (09:18→21:47)
[2023-03-01] MEDS: Senna/Docusate Sodium 1 Tablet 2 TABLET PO ×2 (09:18→19:57)
[2023-03-01] MEDS: Sertraline 50 MG Tablet 100 MG PO (09:18)
[2023-03-01] MEDS: Magnesium Chloride 64 MG Delay Rel.Tablet 128 MG PO (09:18)
[2023-03-01] MEDS: Tamsulosin HCl 0.4 MG Capsule PO ×2 (09:18→19:56)
[2023-03-01] MEDS: Pantoprazole Sodium 20 MG Tablet 40 MG PO (09:19)
[2023-03-01] MEDS: Lisinopril 10 MG Tablet PO (09:19)
[2023-03-01] MEDS: Amiodarone 200 MG Tablet PO (09:19)
[2023-03-01] MEDS: amLODIPine 10 MG Tablet PO (09:19)
[2023-03-01] MEDS: Ferrous Sulfate 325 MG Tablet PO (09:19)
[2023-03-01] MEDS: Multivitamins,Therapeutic Tablet 1 TABLET PO (09:19)
[2023-03-01] MEDS: busPIRone 15 MG TABLET 7.5 MG PO ×2 (09:20→19:55)
--- NOTE | 2023-03-01 09:33 | NURSING ---
Bobbi for office of Nicolas Glass CNP requesting clarification for wound vac removal date, as pt is insisting he was told the wound vac was to remain on an additional 2 days. Also notified his office that the pt will not be able to attend f/u appt on 03/04 d/t rehab policy of not leaving rehab during stay.
--- NOTE | 2023-03-01 10:03 | NURSING ---
Received return call from [facility], per the orders, wound vac is to be removed today and silvalon applied.
[2023-03-01 11:44] LABS: Mucous, Urine 0 SEEN /hpf (<or=2+); Squamous Epithelial Cells - UA 0 SEEN /hpf (0-5)
[2023-03-01 11:48] LABS: Color, Urine Yellow (Yellow); Glucose, Dipstick 100 mg/dl (Normal); Ketone-Dipstick Negative (Negative); Leukocyte Esterase-Dipstick 25 /ul (Negative); Nitrite-Dipstick Negative (Negative); Occult Blood-Urine 250 /ul (Negative); Protein-Dipstick 30 mg/dl (Negative); Urine Bilirubin Dipstick Negative (Negative); Urine Clarity Sl. Cloudy (Clear); Urine Urobilinogen Normal (Normal)
[2023-03-01 11:56] LABS: Bacteria 1+ /hpf (None Seen); Red Blood Cells-Urine 25-50 SEEN /hpf (0-5); White Blood Cells 0-5 SEEN /hpf (0-5); Yeast-Urine RARE /hpf (None Seen)
[2023-03-01 12:04] LABS: Bedside Glucose 192 mg/dL (74-106)
[2023-03-01] MEDS: Ascorbic Acid 500 MG Tablet 1000 MG PO (12:13)
[2023-03-01] MEDS: Insulin Lispro 100 UNIT/ML INSULN.PEN SC ×2 (12:13→17:09)
[2023-03-01 13:29] VITALS: BP 134/76; PULSE 81; RESP 17; TEMP 36.4; O2SAT 97
[2023-03-01 14:12] VITALS: BMI 36.4
--- NOTE | 2023-03-01 14:26 | PCM.HP.STD ---
HPI - General General Date of Admission: 02/28/23 Date of Service: 03/01/23 Chief Complaint: Debility due to prosthetic joint infection with explant and insertion of antibiotic spacer. HPI Narrative VIVI SAINI, is a 73 YO M well known to me from and admission to acute rehab last December for stroke. PMH is significant for chronic atrial fibrillation, chronic anticoagulation with apixaban, diabetes mellitus type 2, systolic and diastolic congestive heart failure, hypertension, BPH, placement of a spinal stimulator for chronic back pain, GERD, hyperlipidemia, left bundle branch block, chronic renal failure stage IIIb, history of stroke in December 2017 and in December 2021, history of TIAs, morbid obesity, history of coronary artery disease with NSTEMI on 02/02/2020, nonischemic cardiomyopathy, osteoarthritis and secondary pulmonary hypertension. He has had an infected total knee prosthesis and is being cared for by Dr. Arias. On 02/22/23 he underwent R knee removal of hardware and placement of an antibiotic spacer. He is on Ceftriaxone and Vancomycin IV until April 05. He has a tunnelled central line for administration of the antibiotics. He received 2 units of PRBC's at the previous hospital for anemia. While at the previous hospital he was seen by PT/OT and acute inpt rehab was recommended at [place]. He was transferred to the acute inpt rehab unit at [facility] on 02/28/23 for 3 hours of therapy daily to restore function/independence at or near his level prior to the surgery. He was sent to us with a Wiggins catheter that was placed for urine retention. He has been on Flomax. Afebrile VSS - systolic BP is mildly elevated above goal of 130 in this pt with a hx of 2 strokes and many TIA's Maintaining appropriate oxygen saturation on RA Fluid balance is -2335 since admission to rehab. Blood sugar record was reviewed. Blood sugar at at bedtime last night was 217 and this morning fasting was 149. He is on a cardiac 1800-calorie diet. He is currently on 25 units of glargine every q PM and a SSI regimen. Discussed with nursing - no problems that need addressed Reviewed the PT/OT notes Medication list reviewed. He is now on Flomax 0.4 mg BID and he denies lightheadedness. He is taking Oxy IR for pain control. The wound vac was removed today as ordered. All lab drawn this morning was personally reviewed. White blood cell count is normal at 8.8. Hemoglobin is 8.4 and platelets are within normal limits. BMP is remarkable for a BUN of 26 with a creatinine of 1.77 which is actually less than his baseline over the past year which has ranged from 2.02-3.23. Mag cesium and phosphorus are normal. Albumin is low at 2.6. UA was sent and is positive for protein and occult blood. He has 25-50 RBCs per high-power field and 0-5 WBCs. There was +1 bacteria. Urine in the Wiggins tubing is pale and clear with occasional small blood clot. Random vancomycin trough was high last night at 27.7 and will be redrawn today. Pharmacy was consulted to manage the vancomycin. [facility] Medical History (Updated 03/01/23 @ 15:[address] Tash Gaitan, ) Acute on chronic combined systolic (congestive) and diastolic (congestive) heart failure (02/02/20) Acute right MCA stroke Anemia Cerebral artery occlusion with cerebral infarction Chronic combined systolic and diastolic CHF (congestive heart failure) Chronic low back pain CKD (chronic kidney disease), stage III CVA (cerebral vascular accident) (12/2017) Diabetes mellitus type 1.5, managed as type 1 Diabetes mellitus, type 2 Essential (primary) hypertension GERD (gastroesophageal reflux disease) History of iron deficiency History of non-ST elevation myocardial infarction (NSTEMI) (02/02/20) Hyperlipidemia Iron deficiency 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 (LBBB) Left-sided weakness prison current use of 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 Longstanding persistent atrial fibrillation Non-ischemic cardiomyopathy NSVT (nonsustained ventricular tachycardia) Obesity Osteoarthritis Secondary pulmonary arterial hypertension TIA (transient ischemic attack) (12/2017) Home Medications atorvastatin 80 mg tablet 80 mg PO QHS CHOLESTEROL 01/06/22 [History Last Taken 12/06/22] ferrous sulfate 325 mg (65 mg iron) tablet 325 mg PO DAILY supplement #30 tabs 01/06/22 [Rx Last Taken 12/07/22] docusate sodium 100 mg capsule 100 mg PO DAILY PRN Constipation 02/12/22 [History Last Taken Unknown] multivitamin (Daily Multi-Vitamin tablet) 1 tab PO DAILY Supplement 02/12/22 [History Last Taken 12/07/22] tamsulosin 0.4 mg capsule 0.4 mg PO BID Urine retention 02/12/22 [History Last Taken 12/07/22] aspirin 81 mg capsule 81 mg PO DAILY Heart health 02/25/22 [History Last Taken 12/07/22] buspirone 15 mg tablet 7.5 mg PO BID Mood 02/25/22 [History Last Taken 12/07/22] diclofenac sodium 1 % topical gel 1 ea topical TID 02/25/22 [History Last Taken Unknown] omeprazole 20 mg capsule,delayed release 40 mg PO DAILY GERD 02/25/22 [History Last Taken 12/07/22] zonisamide 25 mg capsule (Zonegran) 50 mg PO BID Ask 05/09/22 [History Last Taken 12/07/22] amlodipine 10 mg tablet 10 mg PO DAILY BP 07/03/22 [History Last Taken 12/06/22] lisinopril 10 mg tablet 10 mg PO DAILY BP 11/07/22 [History Last Taken 12/07/22] sertraline 50 mg tablet 100 mg PO DAILY Mood 12/07/22 [History Last Taken 12/07/22] insulin aspart U-100 100 unit/mL (3 mL) subcutaneous pen See Rx Instructions .Route .COMPLEX diabetes 30 days #15 mL 12/08/22 [Rx Last Taken 12/06/22] furosemide 40 mg tablet 40 mg PO BID Fluid retention 01/11/23 [History Last Taken Unknown] acetaminophen 500 mg tablet 1,000 mg PO Q8H PRN PRN Pain 1-10 02/28/23 [History Last Taken 02/28/23 13:35] amiodarone 200 mg tablet 200 mg PO DAILY BP 02/28/23 [History Last Taken Unknown] apixaban 5 mg tablet (Eliquis) 5 mg PO BID Blood thinner 02/28/23 [History Last Taken Unknown] ascorbic acid (vitamin C) 500 mg tablet 1,000 mg PO LUNCH Supplement 02/28/23 [History Last Taken Unknown] carvedilol 3.125 mg tablet (Coreg) 3.125 mg PO BID BP 02/28/23 [History Last Taken Unknown] ceftriaxone 2 gram intravenous solution 2 g IV DAILY Antibiotic 02/28/23 [History Last Taken Unknown] dextrose 40 % in water (D40W) 40 % in water (D40W) intravenous solution 15 ea IV PRN PRN Low blood sugar 02/28/23 [History Last Taken Unknown] fenofibrate 54 mg tablet 54 mg PO DAILY Cholestrol 02/28/23 [History Last Taken Unknown] insulin glargine-yfgn 100 unit/mL (3 mL) subcutaneous pen 25 unit subcut QPM Blood sugar 02/28/23 [History Last Taken Unknown] magnesium chloride 64 mg (magnesium chloride) tablet,delayed release (Mag 64) 128 mg PO DAILY Supplement 02/28/23 [History Last Taken Unknown] oxycodone 5 mg tablet 5 - 10 mg PO Q6H PRN Pain 1-10 02/28/23 [History Last Taken 02/28/23 13:35] vancomycin 250 mg intravenous solution 1.25 g IV Q24H Antibiotic 02/28/23 [History Last Taken 02/27/23 22:18] Allergy/AdvReac Type Severity Reaction Status Date / Time rofecoxib Allergy Hives Verified 01/11/23 14:27 Family History Mother Heart disease Sister Heart disease Myocardial infarction CVA (cerebral vascular accident) Diabetes Brother CVA (cerebral vascular accident) Surgical History History of back surgery History of knee replacement, total Social History Smoking Status: Never smoker alcohol intake: current alcohol intake frequency: holidays/special occasions only Alcohol type: beer substance use type: does not use caffeine: Yes Type: coffee Number of servings: 2 ROS Constitutional Constitutional: Reports fatigue and weakness; Denies anorexia, change in weight, chills, fever(s) or night sweats Eyes Eyes: Reports blurry vision; Denies change in vision, eye pain or loss of vision ENT HEENT: Denies abnormal hearing, dysphagia, headache(s), hearing loss, nasal congestion or sore throat Cardiovascular Cardiovascular: Reports dyspnea on exertion and edema; Denies chest pain, lightheadedness, orthopnea, palpitations, paroxysmal nocturnal dyspnea or syncope Respiratory/Chest Respiratory/Chest: Reports shortness of breath with exertion; Denies cough, dyspnea, shortness of breath at rest or wheezing Gastrointestinal Gastrointestinal: Denies abdominal pain, constipation, diarrhea, dyspepsia, hematemesis, hematochezia, nausea or vomiting Genitourinary Genitourinary: Reports other Details: He has a Wiggins in and in was placed for urine retention. ; Denies dysuria, hematuria, nocturia, urinary frequency, urinary hesitancy, urinary incontinence or urinary urgency Musculoskeletal Musculoskeletal: Reports back pain, difficulty walking, extremity pain and muscle weakness; Denies joint pain, joint swelling or neck pain Integumentary Integumentary: Reports dry skin, wounds and other Details: Incision over the R knee from recent explant and placement of an antibiotic spacer. ; Denies bleeding lesions, jaundice or unusual bruising Neurologic Neurologic: Reports paresthesias and sensory deficit; Denies confusion, disequilibrium, dizziness, focal weakness, headache(s), seizures or tremor(s) Psychiatric Psychiatric: Reports anxiety and depression; Denies homicidal ideation or suicidal ideation Endocrine Endocrinology: Denies change in body appearance, polydipsia or polyuria Hematologic/Lymphatic Hematologic/Lymphatic: Reports easy bleeding and easy bruising; Denies lymphadenopathy Allergic/Immunologic Allergic/Immunologic: Denies rhinitis, eczemia or asthma Vital Signs Vital Signs Vital Signs: 02/28/23 16:24 02/28/23 18:30 02/28/23 19:25 Temperature 98.8 F 98.8 F Temperature Source Temporal Temporal Pulse Rate 92 92 Respiratory Rate 18 18 Respiratory Effort Respiratory Depth Respiratory Pattern Blood Pressure 138/70 H 138/70 H Blood Pressure Mean 92 92 Blood Pressure Source Monitor Blood Pressure Position Semi-Fowlers Blood Pressure Location Left Arm Pulse Ox 97 97 97 Oxygen Delivery Method Room Air Room Air Room Air Oxygen Flow Rate (L/min) 02/28/23 22:00 02/28/23 22:00 03/01/23 00:30 Temperature 97.8 F 98.0 F Temperature Source Temporal Temporal Pulse Rate 82 82 88 Respiratory Rate 16 16 16 Respiratory Effort Normal Non-Labored Respiratory Depth Normal Respiratory Pattern Normal Blood Pressure 142/72 H 142/76 H Blood Pressure Mean 95 98 Blood Pressure Source Monitor Blood Pressure Position Semi-Fowlers Blood Pressure Location Left Arm Pulse Ox 95 95 95 Oxygen Delivery Method Room Air Room Air Nasal Cannula Oxygen Flow Rate (L/min) 2 03/01/23 06:00 03/01/23 07:27 03/01/23 13:29 Temperature 97.8 F 98.1 F 97.6 F L Temperature Source Temporal Temporal Temporal Pulse Rate 90 94 81 Respiratory Rate 16 18 17 Respiratory Effort Respiratory Depth Respiratory Pattern Blood Pressure 136/78 H 131/75 H 134/76 H Blood Pressure Mean 97 93 95 Blood Pressure Source Monitor Blood Pressure Position Semi-Fowlers Blood Pressure Location Right Arm Pulse Ox 94 99 97 Oxygen Delivery Method Room Air Room Air Room Air Oxygen Flow Rate (L/min) Weight Weight: 241 lb 6.499 oz Body Mass Index (BMI) 36.4 Physical Exam Const alert, oriented x3, no apparent distress and well nourished General Appearance: cooperative and well kempt HEENT normocephalic and head/scalp atraumatic HEENT Narrative: Dry MM with no thrush. Denies sore mouth or painful swallowing. Eyes PERRL, EOMs intact bilaterally, conjunctivae normal and no scleral icterus Eyes Narrative: No mattering of the eyelashes. No DC from the eye. Neck no lymphadenopathy, No nodes and no carotid bruits General: trachea midline Chest Chest: symmetrical chest wall rise Resp clear to auscultation bilaterally Resp Narrative: Not tachypneic and breathing is not labored. Effort and Inspection: able to speak in complete sentences Cardio regular rate, regular rhythm, no murmurs, no rub and no gallops Cardio Narrative: No ectopy GI normal to inspection, nondistended, normoactive bowel sounds, soft to palpation and non-tender GI Narrative: No guarding with palpation Narrative: Wiggins catheter is present. There is no erythema around or discharge from the urethra. Urine in the tubing is pale and clear with occasional small blood clot. Bladder / Kidney Exam: catheter in place Extremity normal capillary refill and no calf tenderness Extremity Narrative: Swelling of he RLE but no swelling of the Left ankle. No clubbing Skin no jaundice and no mottling Skin Narrative: No rashes. He has ecchymosis of the knee and surrounding area due to recent surgery. Wound Narrative: There is a long midline incision over the R knee from recent explant and placement of an antibiotic spacer. The incision is intact with no kylah-incisional erythema and no purulent DC. Neuro oriented x3, CN's II-XII intact bilaterally and moves all extremities Neuro Narrative: No side neglect. Weaker on the left side from stroke last year. Psych cooperative, affect normal, speech normal, denies homicidal ideation and denies suicidal ideation Appearance: grossly normal Attitude: calm and engaged Results Lab / Micro Data Result Diagrams: 03/01/23 05:41 03/01/23 05:41 Labs: Laboratory Results - last 24 hr 02/28/23 21:23: POC Glucose 217 H 03/01/23 05:41: WBC 8.8, RBC 2.77 L, Hgb 8.4 L, Hct 26.2 L, MCV 94.6 H, MCH 30.3, MCHC 32.1, RDW Std Deviation 43.8, RDW Coeff of Whitney 12.6, Plt Count 269, MPV 10.2 03/01/23 05:41: Sodium 141, Potassium 4.6, Chloride 109 H, Carbon Dioxide 27.0, Anion Gap 5, BUN 26 H, Creatinine 1.77 H, Estim Creat Clear Calc 35.96, Est GFR (MDRD) Af Amer 49 L, Est GFR (MDRD) Non-Af 40 L, BUN/Creatinine Ratio 14.7, Glucose 150 H, Calcium 8.8, Phosphorus 3.1, Magnesium 2.0, Total Bilirubin 0.30, AST 18, ALT 18, Alkaline Phosphatase 48, Total Protein 6.7, Albumin 2.6 L, Globulin 4.1, Albumin/Globulin Ratio 0.6 L 03/01/23 05:41: Random Vancomycin 27.7 H 03/01/23 06:05: POC Glucose 149 H 03/01/23 11:30: Urine Color Yellow, Urine Clarity Sl. Cloudy, Urine pH 7.0, Ur Specific [place] 1.010, Urine Protein 30 H, Urine Glucose (UA) 100 H, Urine Ketones Negative, Urine Occult Blood 250 H, Urine Nitrite Negative, Urine Bilirubin Negative, Urine Urobilinogen Normal, Ur Leukocyte Esterase 25 H, Urine RBC 25-50 SEEN, Urine WBC 0-5 SEEN, Ur Squamous Epith Cells 0 SEEN, Urine Bacteria 1+, Urine Mucus 0 SEEN, Urine Yeast RARE 03/01/23 11:43: POC Glucose 192 H Assessment & Plan Assessment/Plan (1) Physical debility: (2) Infected prosthetic knee joint: (3) Aftercare following explantation of knee joint prosthesis: (4) History of CVA (cerebrovascular accident): PLAN: 2018 and 2021 with many TIA's as well. (5) Diabetes mellitus, type 2: (6) Urine retention: (7) Wiggins catheter in place: (8) BPH (benign prostatic hyperplasia): QUALIFIERS: Lower urinary tract symptom presence: symptoms present Lower urinary tract symptom detail: urinary hesitancy Qualified Code(s): N40.1 - Benign prostatic hyperplasia with lower urinary tract symptoms; R39.11 - Hesitancy of micturition (9) CKD (chronic kidney disease), stage III: QUALIFIERS: Chronic kidney disease stage 3 subtype: stage 3b (GFR 30-44) Qualified Code(s): N18.32 - Chronic kidney disease, stage 3b (10) Normochromic normocytic anemia: (11) Persistent atrial fibrillation: (12) Hypomagnesemia: (13) Depression: QUALIFIERS: Depression Type: reactive depression Qualified Code(s): F32.9 - Major depressive disorder, single episode, unspecified (14) Cognitive dysfunction: (15) Left-sided weakness: (16) Chronic anticoagulation: PLAN: With Apixaban. (17) Non-ischemic cardiomyopathy: PLAN: EF in January of 2023 with 60% EF and no wall motion abnormalities. Normal BL atria. Did not comment on the PA systolic. No significant valvular heart disease. PLAN: Plan PLAN PT for gait stability OT for ADL's ST for evaluation Analgesics as needed Bowel protocol Fall precautions Assess for Anxiety/Depression GI prophylaxis with pantoprazole DVT prophylaxis with Eliquis Follow up with Dr. Arias, PCP, cardiology and ID following DC from IP Rehab AM lab including CMP, CBC, Mag and Phos Check a HGBA1C. Monitor the BS's for 48-72 hours and then start scheduled mealtime insulin. Weekly CBC with diff, BMP, ESR and CRP while on Vanco and Rocephin. Al paperwork sent from [facility] was personally reviewed. Voiding trial in a few days since he is now on Flomax BID. UA revealed no infection. Check orthostatic VS's in the AM Charges/Coding Visit Charges Inpatient E&M: 96719 Init Hosp L3
[2023-03-01 15:25] VITALS: O2SAT 94
--- NOTE | 2023-03-01 15:34 | PCM.RU.PYE ---
Admission Information Primary Diagnosis:: Debility due to infected R TKA with recent explant and placement of an antibiotic spacer. Status Changes from Prescreening?: No changes Identified Actual Problem List:: Skin Intergrity, Pain, ALteration in Cmfrt, Depression, Alteration in Sleep, Mobility Impaired, Self Care Deficit, Diabetes, Hyperglycemia and Alteration-Leisure Activ. Potential Problem List:: DVT, Bleeding, Infection, UTI, Aspiration, Falls, Skin Integrity and Depression Risk of Complications DVT: MOO Anthonye and - (Eliquis 5 mg p.o. twice daily) Bleeding: Monitor Lab Values, Nursing to Teach Precautions for anti-coagulation therapy., Wound, if applicable, to be assessed every shift. and Stroke patients assessed for lethargy or change in status. Infection: Clinical Staff to Monitor for S/S of infection: and S/S of infection include fever, redness, warmth, etc. Urinary Tract Infection: Monitor for frequency, burning, discomfort, or incontinence. and Nursing will obtain urine sample for urinalysis and C&S when ordered. Aspiration: Clinical staff will monitor for coughing, drooling, congestion., Speech will evaluate swallowing and dsyphasia. and Nursing will monitor patient swallowing during meals. Falls: Patient will be evaluated for Fall Precautions and Patient will be placed on Fall Precautions as indicated per protocol. Skin Breakdown: Nursing will assess skin daily using assessment tool. and Nursing will place on Skin Breakdown Precautions as indicated. Pain: Clinical staff will assess patient's pain level per protocol., Medications will be given, if needed, and the pain level reassessed. and Other methods: Massage, distraction, decrease stimulus, etc. used PRN. Plan of Care Patient requires physician specializing in physical medicine and rehab oversight to provide close medical supervision of rehab issues including: Pain Management, Sleep Problems, Bowel and Bladder, Medical and co-morbidity Management, DVT prophylaxis, Rehabilitation Leadership and Coordination of treatment team Patient needs Physical Therapy: For a minimum of 1 hour and At least 5 out of 7 days Patient needs Physical Therapy to improve:: Mobility, Strengthening, Transfers, Stretching, ROM, Endurance, Stairs, Gait and Balance Patient needs Occupational Therapy: For a minimum of 1 hour and At least 5 out of 7 days Patient needs Occupational Therapy to improve ADL's incl.: Eating, Grooming, Bathing, Dressing, Toileting, Toilet transfers, Community Reintegration, Higher functioning activities, Household tasks, Adaptive Equipment, Splinting and Other activities as determined Patient requires 24/7 Rehabilitation Nursing for: Pain Issues, Identifying and preventing risk factors, Monitoring and reporting current medical conditions, Assisting with ambulation, transfer, and all ADL's, Teaching patients about disease process and medications, Family teaching, Providing safe environment, Bowel and Bladder Issues, Skin integrity and Medication Management Patient needs Ornamental Metal Erector Apprentice/ Case Management for: Discharge Planning, Arranging Home Equipment or Services and Family Interventions Patient needs Dietary and Nutrition Services for: Adequate Nutrition, Nutritional Supplements and Nutritional Education Goals Patient will remain: free from falls and or injury at time of discharge. Patient will perform bed mobility at: MOD I level of assist. Patient will complete transfers from bed to chair at: - (Minimal assistance/contact-guard assist) Patient will ambulate: 100 feet and with LRD Patient will propel wheelchair: 100 feet (Standby assist on various surfaces) Patient will complete upper body dressing at: - (Set up) Patient will complete lower body dressing at: - (Moderate assistance with adaptive devices as needed.) Patient will complete toileting at: - (Moderate assistance with toileting and min assist with toilet transfer.) Patient will perform bathing at: MOD I level of assist. Patient will complete grooming at: - (Set up) Patient will complete home management skills at: MOD I level of assist. Patient will achieve: - (1 curb step) Patient will have pain level of: of 3 or less Patient's skin will: remain intact Patient will receive: adequate nutrition. Discharge Planning Pt Prognosis for Sig. Practical Improv. w/in Reasonable Time: Good Estimated Length of stay (days): 21 Anticipated D/C Destination: Home with Outpt Therapy Was Preadmission Assessment Accurate?: Yes
[2023-03-01 17:13] LABS: Hemoglobin A1c 6.6 % (3.8-5.6)
[2023-03-01 17:45] LABS: Bedside Glucose 195 mg/dL (74-106)
[2023-03-01 19:07] VITALS: BP 132/74; PULSE 63; RESP 18; TEMP 36.7; O2SAT 97
[2023-03-01] MEDS: Atorvastatin Calcium 80 MG Tablet PO (19:58)
[2023-03-01] MEDS: Insulin Glargine-YFGN 100 UNIT/ML Pen 25 UNIT SC (21:42)
[2023-03-01 22:07] LABS: Vancomycin, Trough Level 17.6 ug/mL (5.0-15.0)
[2023-03-01 22:20] LABS: Bedside Glucose 281 mg/dL (74-106)
--- NOTE | 2023-03-01 22:27 | PCM.RX.CS ---
Consult Pharmacy has been consulted to manage selected antiobiotic: Vancomycin Type of Consult: Follow-up Suspected Infection: Skin/Soft tissue Prior Doses of Antibiotics Received/Current Regimen: Medications Vancomycin HCl 1,250 mg/ (Sodium Chloride) 275 mls @ 167 mls/hr IV Q24H FRANCINE Stop: 04/05/23 22:31 Discontinued Medications Vancomycin HCl 1,250 mg/ (Sodium Chloride) 275 mls @ 167 mls/hr IV X1 ONE Stop: 02/28/23 23:38 Last Admin: 03/01/23 00:28 Dose: Infused Labs: Sodium 141 mmol/L (136-145) 03/01/23 05:41 Potassium 4.6 mmol/L (3.5-5.1) 03/01/23 05:41 Chloride 109 mmol/L (98-107) H 03/01/23 05:41 Carbon Dioxide 27.0 mmol/L (21.0-32.0) 03/01/23 05:41 Anion Gap 5 (5-15) 03/01/23 05:41 BUN 26 mg/dL (7-18) H 03/01/23 05:41 Creatinine 1.77 mg/dL (0.70-1.30) H 03/01/23 05:41 Est GFR (MDRD) Af Amer 49 mL/min (>60) L 03/01/23 05:41 Est GFR (MDRD) Non-Af 40 mL/min (>60) L 03/01/23 05:41 BUN/Creatinine Ratio 14.7 RATIO (10-20) 03/01/23 05:41 Glucose 150 mg/dL (74-106) H 03/01/23 05:41 Vancomycin Trough 17.6 ug/mL (5.0-15.0) H 03/01/23 21:29 Random Vancomycin 27.7 ug/mL (0.0-15.0) H 03/01/23 05:41 Weight used for dosin.5 kg Estimated Creatinine Clearance: 45.8-ABW Goal Trough: 15-20 mcg/mL Pharmacy Plan for Drug Dosing: The vancomycin level drawn in the evening 03/01/23 was adjusted to @2129 to give a more accurate trough level. It was ultimately drawn 23 hours post-dose, and was 17.6 mg/L. Per aminoglycoside dosing calculator, continuing at 1250mg q24 hours should give an estimated trough of 17.0. Another trough will be drawn prior to third dose. Pharmacy Service will continue to monitor and adjust dosing as required. Follow-Up Labs: Trough Vancomycin Labs to be done on [date and time ordered]: 03/03/23 @2200
[2023-03-02 06:45] LABS: Bedside Glucose 146 mg/dL (74-106)
[2023-03-02 07:41] VITALS: BP 137/79; PULSE 62; RESP 16; TEMP 36.4; O2SAT 98
[2023-03-02] MEDS: Carvedilol 3.125 MG TABLET PO ×2 (07:44→16:52)
[2023-03-02] MEDS: Aspirin 81 MG TAB.CHEW PO (07:44)
[2023-03-02] MEDS: Ferrous Sulfate 325 MG Tablet PO (07:45)
[2023-03-02] MEDS: Multivitamins,Therapeutic Tablet 1 TABLET PO (07:45)
[2023-03-02] MEDS: Zonisamide 50 MG Capsule PO ×2 (08:39→19:49)
[2023-03-02] MEDS: Acetaminophen 500 MG Tablet 1000 MG PO ×2 (08:39→19:47)
[2023-03-02] MEDS: Sertraline 50 MG Tablet 100 MG PO (08:39)
[2023-03-02] MEDS: Magnesium Chloride 64 MG Delay Rel.Tablet 128 MG PO (08:39)
[2023-03-02] MEDS: Tamsulosin HCl 0.4 MG Capsule PO ×2 (08:39→19:48)
[2023-03-02] MEDS: Furosemide 40 MG Tablet PO ×2 (08:40→16:52)
[2023-03-02] MEDS: amLODIPine 10 MG Tablet PO (08:40)
[2023-03-02] MEDS: Lisinopril 10 MG Tablet PO (08:40)
[2023-03-02] MEDS: busPIRone 15 MG TABLET 7.5 MG PO ×2 (08:40→19:49)
[2023-03-02] MEDS: Fenofibrate 48 MG Tablet PO (08:40)
[2023-03-02] MEDS: APIXABAN 5 MG TABLET PO ×2 (08:40→19:49)
[2023-03-02] MEDS: Pantoprazole Sodium 20 MG Tablet 40 MG PO (08:40)
[2023-03-02] MEDS: oxyCODONE 5 MG Tablet PO ×2 (08:41→19:48)
[2023-03-02] MEDS: Amiodarone 200 MG Tablet PO (08:43)
[2023-03-02] MEDS: 0.9 % NaCl (Sterile) Posiflush 10 mL IV (09:08)
[2023-03-02 10:55] VITALS: O2SAT 98
[2023-03-02] MEDS: Insulin Lispro 100 UNIT/ML INSULN.PEN SC ×2 (12:16→16:52)
[2023-03-02 12:17] LABS: Bedside Glucose 152 mg/dL (74-106)
[2023-03-02] MEDS: Ascorbic Acid 500 MG Tablet 1000 MG PO (12:17)
[2023-03-02 16:30] VITALS: BMI 36.4
[2023-03-02] MEDS: Glucerna Shake 120 ML LIQUID PO (16:52)
[2023-03-02 17:07] LABS: Bedside Glucose 188 mg/dL (74-106)
[2023-03-02 18:08] LABS: Bedside Glucose 228 mg/dL (74-106)
[2023-03-02 19:31] VITALS: BP 128/71; PULSE 74; RESP 17; TEMP 36.7; O2SAT 98
[2023-03-02 20:00] VITALS: O2SAT 98
[2023-03-02] MEDS: Atorvastatin Calcium 80 MG Tablet PO (20:07)
[2023-03-02] MEDS: Insulin Glargine-YFGN 100 UNIT/ML Pen 25 UNIT SC (22:09)
[2023-03-02 22:39] LABS: Bedside Glucose 238 mg/dL (74-106)
[2023-03-03 06:54] LABS: Bedside Glucose 122 mg/dL (74-106)
[2023-03-03 07:04] VITALS: BP 155/87; PULSE 91; RESP 18; TEMP 36.7; O2SAT 97
[2023-03-03] MEDS: oxyCODONE 5 MG Tablet PO ×2 (08:10→19:43)
[2023-03-03] MEDS: Acetaminophen 500 MG Tablet 1000 MG PO ×2 (08:10→19:42)
[2023-03-03] MEDS: Lisinopril 10 MG Tablet PO (08:11)
[2023-03-03] MEDS: amLODIPine 10 MG Tablet PO (08:11)
[2023-03-03] MEDS: Pantoprazole Sodium 20 MG Tablet 40 MG PO (08:11)
[2023-03-03] MEDS: Multivitamins,Therapeutic Tablet 1 TABLET PO (08:11)
[2023-03-03] MEDS: Magnesium Chloride 64 MG Delay Rel.Tablet 128 MG PO (08:11)
[2023-03-03] MEDS: Sertraline 50 MG Tablet 100 MG PO (08:11)
[2023-03-03] MEDS: Fenofibrate 48 MG Tablet PO (08:12)
[2023-03-03] MEDS: Carvedilol 3.125 MG TABLET PO ×2 (08:12→16:54)
[2023-03-03] MEDS: Zonisamide 50 MG Capsule PO ×2 (08:12→19:45)
[2023-03-03] MEDS: Amiodarone 200 MG Tablet PO (08:12)
[2023-03-03] MEDS: Tamsulosin HCl 0.4 MG Capsule PO ×2 (08:12→19:44)
[2023-03-03] MEDS: Aspirin 81 MG TAB.CHEW PO (08:12)
[2023-03-03] MEDS: busPIRone 15 MG TABLET 7.5 MG PO ×2 (08:12→19:43)
[2023-03-03] MEDS: APIXABAN 5 MG TABLET PO ×2 (08:12→19:44)
[2023-03-03] MEDS: Furosemide 40 MG Tablet PO ×2 (08:15→16:54)
[2023-03-03] MEDS: 0.9 % NaCl (Sterile) Posiflush 10 mL IV ×2 (09:18→23:47)
[2023-03-03] MEDS: Ascorbic Acid 500 MG Tablet 1000 MG PO (11:08)
[2023-03-03] MEDS: Ferrous Sulfate 325 MG Tablet PO (11:08)
[2023-03-03] MEDS: Glucerna Shake 120 ML LIQUID PO (11:08)
[2023-03-03 11:28] LABS: Bedside Glucose 180 mg/dL (74-106)
[2023-03-03] MEDS: Insulin Lispro 100 UNIT/ML INSULN.PEN SC ×2 (12:34→16:56)
[2023-03-03 13:27] VITALS: BMI 36.4
[2023-03-03 17:36] LABS: Bedside Glucose 225 mg/dL (74-106)
[2023-03-03 19:29] VITALS: BP 127/74; PULSE 94; RESP 17; TEMP 36.8; O2SAT 99
[2023-03-03] MEDS: Atorvastatin Calcium 80 MG Tablet PO (19:45)
[2023-03-03 20:32] VITALS: BMI 36.4
[2023-03-03] MEDS: Insulin Glargine-YFGN 100 UNIT/ML Pen 25 UNIT SC (21:47)
[2023-03-03 22:11] LABS: Bedside Glucose 232 mg/dL (74-106)
[2023-03-03 22:44] LABS: Vancomycin, Trough Level 20.4 ug/mL (5.0-15.0)
[2023-03-04 06:54] LABS: Bedside Glucose 123 mg/dL (74-106)
[2023-03-04 07:55] VITALS: BP 133/61; PULSE 76; RESP 16; TEMP 36.6; O2SAT 98
[2023-03-04] MEDS: Glucerna Shake 120 ML LIQUID PO ×2 (08:13→12:43)
[2023-03-04] MEDS: Aspirin 81 MG TAB.CHEW PO (08:16)
[2023-03-04] MEDS: Fenofibrate 48 MG Tablet PO (08:16)
[2023-03-04] MEDS: Multivitamins,Therapeutic Tablet 1 TABLET PO (08:16)
[2023-03-04] MEDS: Lisinopril 10 MG Tablet PO (08:16)
[2023-03-04] MEDS: amLODIPine 10 MG Tablet PO (08:16)
[2023-03-04] MEDS: Sertraline 50 MG Tablet 100 MG PO (08:16)
[2023-03-04] MEDS: Amiodarone 200 MG Tablet PO (08:16)
[2023-03-04] MEDS: Furosemide 40 MG Tablet PO ×2 (08:16→16:35)
[2023-03-04] MEDS: Pantoprazole Sodium 20 MG Tablet 40 MG PO (08:16)
[2023-03-04] MEDS: Carvedilol 3.125 MG TABLET PO ×2 (08:16→16:33)
[2023-03-04] MEDS: Zonisamide 50 MG Capsule PO ×2 (08:17→19:49)
[2023-03-04] MEDS: busPIRone 15 MG TABLET 7.5 MG PO ×2 (08:17→19:47)
[2023-03-04] MEDS: APIXABAN 5 MG TABLET PO ×2 (08:18→19:47)
[2023-03-04] MEDS: Tamsulosin HCl 0.4 MG Capsule PO ×2 (08:33→19:46)
[2023-03-04] MEDS: Magnesium Chloride 64 MG Delay Rel.Tablet 128 MG PO (08:33)
--- NOTE | 2023-03-04 10:40 | PN_ITS ---
Subjective Subjective Was seen on team rounds today. His Magaly was present in the room. They are under the mistaken belief that they will be able to go to an appointment with Dr. Arias this week and come back but, they were told by multiple prior to him coming to rehab that they can not leave rehab until DC. We are going to con tact Dr. Arias and see if we can get an XRAY and a photo of the knee instead of an in person visit. They were told by Dr. Arias that he would get a different brace at this visit and he would be allowed to bear some weight. Vancomycin Ceftriaxone Afebrile VSS Maintaining appropriate oxygen saturation on RA Oral intake is good Discussed with nursing - no problems that need addressed Reviewed the PT/OT/ST notes Medication list reviewed. He grew yeast in the urine. Denies CP, SOB, palpitations, cough, N/V/abd pain, D/C, calf pain, cephalgia and lightheadedness. He c/o some burning at the tip of the penis around the urethra when starting to urinate. Denies penile DC. Wiggins is present. Urine is clear and pale yellow today. Urine periodically is pink when the catheter has tractio n on it. Objective Data Objective Data Vital Signs: Vital Signs Temp Pulse Resp BP Pulse Ox O2 Del Method O2 Flow Rate 97.8 F 76 16 133/61 H 98 Room Air 2 03/04/23 07:55 03/04/23 07:55 03/04/23 07:55 03/04/23 07:55 03/04/23 07:55 03/04/23 07:55 03/02/23 07:41 Oxygen Flow Rate (L/min) 2 Oxygen Delivery Method Room Air Weight: 241 lb 6.499 oz Body Mass Index (BMI) 36.4 Intake & Output: Intake and Output for Last 24 Hours 03/02/23 03/03/23 03/04/23 23:59 23:59 23:59 Intake Total 2100 / 2100 1740 / 1740 875 / 875 Output Total 4625 / 4625 3050 / 3050 2125 / 2125 Balance -2525 / -2525 -1310 / -1310 -1250 / -1250 Lab / Micro Data Result Diagrams: 03/01/23 05:41 03/01/23 05:41 Labs: Laboratory Results - last 24 hr 03/03/23 11:07: POC Glucose 180 H 03/03/23 16:56: POC Glucose 225 H 03/03/23 21:46: POC Glucose 232 H 03/03/23 21:54: Vancomycin Trough 20.4 H 03/04/23 06:30: POC Glucose 123 H Micro: Microbiology 03/01/23 11:30 Urine, Catheterized Urine Culture - Final Yeast, not Tabitha albicans Physical Exam Const alert and no apparent distress Constitutional Narrative: Alcides confabulates, has poor short term memory and has difficulty consistently following instructions given to him by the therapists. He is not able to maintain toe touch weight bearing on the RLE. Still max assist with many ADL's and requiring 2 people to go from sitting to standing. He would need / supervision at home. General Appearance: cooperative HEENT moist oral mucous membranes HEENT Narrative: No thrush Resp clear to auscultation bilaterally Resp Narrative: Not tachypneic and breathing is not labored. Effort and Inspection: able to speak in complete sentences Cardio regular rate, regular rhythm, no murmurs, no rub and no gallops Cardio Narrative: No ectopy GI normal to inspection, nondistended, normoactive bowel sounds, soft to palpation and non-tender GI Narrative: No guarding with palpation Narrative: Wiggins catheter is present. There is no erythema around or discharge from the urethra. Urine in the tubing is pale and clear with occasional small blood clot. Bladder / Kidney Exam: catheter in place Extremity normal capillary refill and no calf tenderness Extremity Narrative: Swelling of he RLE at the distal LE but, no swelling of the Left ankle. Skin Wound Narrative: There is a long midline incision over the R knee from recent explant and plac ement of an antibiotic spacer. The incision is intact with no kylah-incisional erythema and no purulent DC. Bruising is resolving. Neuro CN's II-XII intact bilaterally and moves all extremities Neuro Narrative: Cognitive function is a challenge for him. Poor short term memory and he confabulates. At admission he told us Dr. Arias said to leave the wound vac on 2 extra days or another week and the wound vac battery only lasts 7 days. He did allow us to remove the vac after 7 days. Today he told us that at the appt with Dr. Arias he was going to able to bear wt on the RLE and he was going to get another brace. He is unable to maintain TTWB and I suspect if he is allowed to bear 40% at as he tells me that he would forget and bear his full wt. Psych cooperative, affect normal, denies homicidal ideation and denies suicidal ideation Psych Narrative: Cognitive dysfunction. Confabulating and then perseverates on what he made up. He is very frustrated over the course of the past year, the pain in his knee and the inability to walk. Repeatedly tells me that if this does not heal and he does not get a new Knee in 12 weeks he will want to know who to blame. Attitude: calm Assessment & Plan Assessment/Plan (1) Physical debility: (2) Infected prosthetic knee joint: (3) Aftercare following explantation of knee joint prosthesis: (4) History of CVA (cerebrovascular accident): PLAN: Has had at least 2 strokes and also TIA's. Cognitive function is impaired, (5) Diabetes mellitus, type 2: (6) Urine retention: (7) Wiggins catheter in place: (8) BPH (benign prostatic hyperplasia): QUALIFIERS: Lower urinary tract symptom presence: symptoms present Lower urinary tract symptom detail: urinary hesitancy Qualified Code(s): N40.1 - Benign prostatic hyperplasia with lower urinary tract symptoms; R39.11 - Hesitancy of micturition (9) CKD (chronic kidney disease), stage III: QUALIFIERS: Chronic kidney disease stage 3 subtype: stage 3b (GFR 30-44) Qualified Code(s): N18.32 - Chronic kidney disease, stage 3b (10) Normochromic normocytic anemia: (11) Persistent atrial fibrillation: (12) Hypomagnesemia: (13) Depression: QUALIFIERS: Depression Type: reactive depression Qualified Code(s): F32.9 - Major depressive disorder, single episode, unspecified (14) Cognitive dysfunction: (15) Left-sided weakness: (16) Chronic anticoagulation: (17) Non-ischemic cardiomyopathy: PLAN: Plan 1. Continue therapy 2. Add Jardiance 10 mg daily for cardiovascular protection 3. Add Glucophage 500 mg at supper. 4. Discontinue the sliding insulin scale. 5. CBC with differential, BMP, ESR and CRP weekly while on antibiotics. 6. Will contact Dr. Arias and see if Alcides truly needs to see him or we can get an XRAY and remove the sutures here in rehab. If he absolutely wants to see him then we will need to transfer him to an SNF........under significant time constraint here because we will need to get pre-cert from the insurance company and find an SNF to take him. Charges/Coding Visit Charges Inpatient E&M: 86949 Subs Hosp L2
[2023-03-04] MEDS: 0.9 % NaCl (Sterile) Posiflush 10 mL IV ×2 (10:56→21:34)
[2023-03-04 11:21] LABS: Bedside Glucose 197 mg/dL (74-106)
[2023-03-04] MEDS: Ferrous Sulfate 325 MG Tablet PO (12:42)
[2023-03-04] MEDS: oxyCODONE 5 MG Tablet PO ×2 (12:42→19:46)
[2023-03-04] MEDS: Ascorbic Acid 500 MG Tablet 1000 MG PO (12:44)
--- NOTE | 2023-03-04 13:02 | CASEMGMT ---
Social Work IDT met with patient and for Team meeting. Discussed patient's progress in PT/OT/SN. Educated to [facility] insurance with [employer] 03/06 and continued stay is not guaranteed with each review; days 1-6 noted to have $240/day copay, days 7 and beyond are $0 copay. Pt's goal is to return home with . does work various hours and pt would be home alone at times. During meeting, it is noted is wearing a knee brace. Pt's goal is to return home with at [facility]. SW to continue to follow for DC planning. ReTeam weekly. Imani Traore, TRACTOR ENGINE ASSEMBLER DIRECTOR [facility]
--- NOTE | 2023-03-04 14:22 | NURSING ---
Left message with Dr Arias office in regards to pt's f/u appt. To make office aware that pt not able to leave the unit for the appt and to see if there is anything we can do here such, as xrays, or if pt needs to be at the appointment.
--- NOTE | 2023-03-04 16:03 | EKG12_ITS ---
Test Reason : MEDS Blood Pressure : / mmHG Vent. Rate : 072 BPM Atrial Rate : 170 BPM P-R Int : 000 ms QRS Dur : 132 ms QT Int : 456 ms P-R-T Axes : 000 -60 067 degrees QTc Int : 499 ms Atrial tachycardia with variable block 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 Abnormal ECG When compared with ECG of 07-DEC-2022 15:26, Premature supraventricular complexes are no longer Present Sinus rhythm is now with 2nd degree A-V block (Mobitz I) Vent. rate has increased BY 32 BPM Inverted T waves have replaced nonspecific T wave abnormality in Lateral leads Confirmed by STARLA BESS, SUNDEEP ([id number]), editor farm journal JHONATAN CRANDALL ([id number]) on 03/05/2023 1:11:05 PM Referred By: Tash Gaitan Confirmed By:SUNDEEP CHA MD
[2023-03-04] MEDS: metFORMIN HCl 500 MG Tablet PO (16:33)
[2023-03-04] MEDS: Fluconazole 100 MG Tablet PO (16:33)
[2023-03-04 17:00] VITALS: BMI 36.4
[2023-03-04 19:09] VITALS: BP 139/82; PULSE 88; RESP 16; TEMP 36.4; O2SAT 97
[2023-03-04 19:28] LABS: Bedside Glucose 187 mg/dL (74-106)
[2023-03-04] MEDS: Acetaminophen 500 MG Tablet 1000 MG PO (19:45)
[2023-03-04] MEDS: Atorvastatin Calcium 80 MG Tablet PO (19:45)
[2023-03-04] MEDS: Insulin Glargine-YFGN 100 UNIT/ML Pen 25 UNIT SC (21:40)
[2023-03-04 22:06] LABS: Bedside Glucose 210 mg/dL (74-106)
[2023-03-05 06:50] LABS: Bedside Glucose 144 mg/dL (74-106)
[2023-03-05 07:09] VITALS: BP 151/68; PULSE 87; RESP 17; TEMP 36.7; O2SAT 98
[2023-03-05] MEDS: Glucerna Shake 120 ML LIQUID PO ×3 (08:03→17:01)
[2023-03-05] MEDS: Zonisamide 50 MG Capsule PO ×2 (08:04→20:42)
[2023-03-05] MEDS: Magnesium Chloride 64 MG Delay Rel.Tablet 128 MG PO (08:04)
[2023-03-05] MEDS: APIXABAN 5 MG TABLET PO ×2 (08:04→20:42)
[2023-03-05] MEDS: Aspirin 81 MG TAB.CHEW PO (08:05)
[2023-03-05] MEDS: Tamsulosin HCl 0.4 MG Capsule PO ×2 (08:05→20:42)
[2023-03-05] MEDS: Multivitamins,Therapeutic Tablet 1 TABLET PO (08:05)
[2023-03-05] MEDS: Furosemide 40 MG Tablet PO ×2 (08:05→17:02)
[2023-03-05] MEDS: Lisinopril 10 MG Tablet PO (08:05)
[2023-03-05] MEDS: Pantoprazole Sodium 20 MG Tablet 40 MG PO (08:05)
[2023-03-05] MEDS: Fenofibrate 48 MG Tablet PO (08:06)
[2023-03-05] MEDS: Empagliflozin 10 MG Tablet PO (08:06)
[2023-03-05] MEDS: Sertraline 50 MG Tablet 100 MG PO (08:06)
[2023-03-05] MEDS: Fluconazole 100 MG Tablet PO (08:06)
[2023-03-05] MEDS: Carvedilol 3.125 MG TABLET PO (08:06)
[2023-03-05] MEDS: amLODIPine 10 MG Tablet PO (08:06)
[2023-03-05] MEDS: Amiodarone 200 MG Tablet PO (08:06)
[2023-03-05] MEDS: busPIRone 15 MG TABLET 7.5 MG PO ×2 (08:07→20:42)
[2023-03-05] MEDS: 0.9 % NaCl (Sterile) Posiflush 10 mL IV ×2 (10:37→22:25)
--- NOTE | 2023-03-05 11:21 | PN_ITS ---
Subjective Subjective Afebrile VSS-systolic blood pressures consistently above goal. He is currently taking Coreg 6.25 mg twice daily, amlodipine 10 mg daily and lisinopril 10 mg daily. I do not want to increase the lisinopril due to the waxing/waning acute on chronic renal failure. Last potassium was 4.6 on no potassium supplements. Amlodipine is already maxed out so will increase the Coreg to 6.5 mg twice daily. Maintaining appropriate oxygen saturation on RA Oral intake is good. Fluid intake is good however the fluid balance has been negative every day since he has been here. He is taking Furosemide 40 mg BID. His weight is down about 4.5 lbs since admission. Blood sugar record was reviewed. Yesterday we added Glucophage 500 mg with supper and Jardiance 10 mg daily. At bedtime blood sugar was elevated at 210. FBS is 144 today. We will continue to monitor AC and HS BS's Discussed with nursing - no problems that need addressed Reviewed the PT/OT notes - He is not currently being seen by ST but, will consult speech for the confabulation and inability to retain information - not able to maintain TTWB. Medication list reviewed. No complaints today. Denies chest pain, cephalgia, palpitations, shortness of breath, cough, nausea/vomiting/abdominal pain, diarrhea, sore mouth, painful swallowing, calf tenderness and lightheadedness. Objective Data Objective Data Vital Signs: Vital Signs Temp Pulse Resp BP Pulse Ox O2 Del Method O2 Flow Rate 98.0 F 87 17 151/68 H 98 Room Air 2 03/05/23 07:09 03/05/23 07:09 03/05/23 07:09 03/05/23 07:09 03/05/23 07:09 03/05/23 07:09 03/02/23 07:41 Oxygen Flow Rate (L/min) 2 Oxygen Delivery Method Room Air Weight: 241 lb 6.499 oz Body Mass Index (BMI) 36.4 Intake & Output: Intake and Output for Last 24 Hours 03/03/23 03/04/23 03/05/23 23:59 23:59 23:59 Intake Total 1740 / 1740 2210 / 2210 750 / 750 Output Total 3050 / 3050 4300 / 4300 2350 / 2350 Balance -1310 / -1310 -2090 / -2090 -1600 / -1600 Lab / Micro Data Result Diagrams: 03/01/23 05:41 03/01/23 05:41 Labs: Laboratory Results - last 24 hr 03/04/23 10:53: POC Glucose 197 H 03/04/23 16:33: POC Glucose 187 H 03/04/23 21:38: POC Glucose 210 H 03/05/23 06:31: POC Glucose 144 H Micro: Microbiology 03/01/23 11:30 Urine, Catheterized Urine Culture - Final Yeast, not Tabitha albicans Physical Exam Const alert Constitutional Narrative: Tells me that Dr. Arias called his at 4:30 this morning and said he could be 40% wt bearing. I spoke with Dr. Arias myself and he did not tell me he could be more than TTWB at this time and Alcides is not able to maintain TTWB even due to poor memory. Dr. Arias is OK with allowing us to take the sutures out and we will send a picture of the incision and get an XRAY that he could look at. At this point in time he is able to maneuver the WC but, very slowly and with cuing. He will benefit from 3 hours of therapy daily rather than going to an SNF and having at most 1 and 1/2 hours 5 days a week. General Appearance: cooperative Resp clear to auscultation bilaterally Cardio regular rate and no gallops Cardio Narrative: Irregular rhythm. EKG yesterday showed atrial tachycardia with variable block. He has LBBB. He has a hx of persistent AF and is on chronic anticoagulation. GI normal to inspection, nondistended, normoactive bowel sounds and soft to palpation GI Narrative: Guarding with palpation Extremity no calf tenderness Extremity Narrative: edema in the R ankle and distal RLE is improved. Assessment & Plan Assessment/Plan (1) Physical debility: PLAN: Improving in therapy but, slowly and still requiring total assistance with LB dressing and toileting. Unable to maintain TTWB on the RLE. (2) Infected prosthetic knee joint: PLAN: On CEtriaxone and Vancomycin. Pharmacy is monitoring the Vanco levels and adjusting the dose as needed. (3) Aftercare following explantation of knee joint prosthesis: (4) History of CVA (cerebrovascular accident): PLAN: Has had at least 2 strokes and also TIA's. Cognitive function is impaired, and also has persistent L side weakness........the Left side weakness makes it very difficult to maintain TTWB on the R. (5) Diabetes mellitus, type 2: PLAN: WEll controlled. HGBA1C is 6.6. (6) Urine retention: (7) Wiggins catheter in place: (8) BPH (benign prostatic hyperplasia): QUALIFIERS: Lower urinary tract symptom presence: symptoms present Lower urinary tract symptom detail: urinary hesitancy Qualified Code(s): N40.1 - Benign prostatic hyperplasia with lower urinary tract symptoms; R39.11 - Hesitancy of micturition PLAN: Flomax was increased to BID at the previous facility. (9) CKD (chronic kidney disease), stage III: QUALIFIERS: Chronic kidney disease stage 3 subtype: stage 3b (GFR 30-44) Qualified Code(s): N18.32 - Chronic kidney disease, stage 3b PLAN: Follows with Dr. Sanchez. (10) Normochromic normocytic anemia: (11) Persistent atrial fibrillation: PLAN: He had been on diltiazem, Coreg 25 mg twice daily and amiodarone 200 mg daily but, on 12/07/2022 he was brought to the emergency department for a period of unresponsiveness at home. When the EMT arrived arrived he was minimally responsive and when he arrived in the emergency room his heart rate was 40. He was admitted to the hospital and at that time he was discharged on amiodarone 200 mg a day and carvedilol 3.25 mg daily. Diltiazem was discontinued. At his last cardiology visit on 01/11/2023 he was encouraged to proceed with ablation. Following that admission to the hospital his EF had dropped from 57% to 45%. (12) Hypomagnesemia: PLAN: Resolved with daily magnesium chloride. (13) Depression: QUALIFIERS: Depression Type: reactive depression Qualified Code(s): F32.9 - Major depressive disorder, single episode, unspecified PLAN: He takes sertraline and also takes BuSpar for anxiety not controlled with sertraline. (14) Cognitive dysfunction: (15) Left-sided weakness: (16) Chronic anticoagulation: (17) Non-ischemic cardiomyopathy: (18) Atrial tachycardia: (19) Candiduria: PLAN: Started Diflucan on 03/04/23. (20) WANDA (obstructive sleep apnea): PLAN: Wears CPAP. (21) Seizure disorder: PLAN: On Zonegran 50 mg twice daily. PLAN: Plan 1. Continue therapy 2. Patient will remain in acute rehab and on of this week we will remove the sutures, send a photo of the incision to Dr. Arias and get an XRAY of the R knee. 3. Voiding trial today. 4. Increase Coreg to 6.25 mg twice daily and monitor heart rate closely. 5. Continue Glucophage and Jardiance. Jardiance can cause metabolic acidosis and so can Zonegran and the patient has chronic renal failure so we will recheck a BMP later this week. 6. I am not sure Alcides and his are being realistic about his recovery and expectations to return home after rehab. The L side weakness and cognitive dysfunction make it very difficult for him to maintain TTWB on the RLE and he is progressing slowly in therapy Working on WC mobility at this time. Alcides is si cker than he believes........he is planning on having a TKR on the R in 12 weeks and after that Left shoulder surgery. He is having AF, NSR and atrial tachycardia with variable block. Ablation has been recommended but, he has not followed up with this. He has CM and CAD. Last EF was down to 45%. He also has CRF stage 3B and he is on a 6 week course Of Vanco for osteomyelitis. Risk for or KS associated with orthopedic surgeries is elevated at 2.5%(Fox scoring) IF u consider him to be partially dependent.....at this time he is totally dependent or toileting, bathing and LB dressing. His is not with him 01/04 and he is home alone. Strongly consider he have ablation prior to any non-emergent surgeries going forward. Last stress was in April of 2022 and it was negative for ischemia. Has never had a cardiac cath. No changes to the medication regimen today. Charges/Coding Visit Charges Inpatient E&M: 08926 Subs Hosp L2
[2023-03-05] MEDS: Ferrous Sulfate 325 MG Tablet PO (11:42)
[2023-03-05] MEDS: Ascorbic Acid 500 MG Tablet 1000 MG PO (11:42)
[2023-03-05 12:11] LABS: Bedside Glucose 143 mg/dL (74-106)
[2023-03-05 16:11] VITALS: BMI 36.4
[2023-03-05] MEDS: Carvedilol 6.25 MG Tablet PO (17:02)
[2023-03-05] MEDS: metFORMIN HCl 500 MG Tablet PO (17:02)
[2023-03-05 17:27] LABS: Bedside Glucose 183 mg/dL (74-106)
[2023-03-05 19:32] VITALS: BP 141/82; PULSE 86; RESP 15; TEMP 36.3; O2SAT 98
[2023-03-05] MEDS: Atorvastatin Calcium 80 MG Tablet PO (20:42)
[2023-03-05] MEDS: Acetaminophen 500 MG Tablet 1000 MG PO (20:42)
[2023-03-05] MEDS: oxyCODONE 5 MG Tablet PO (20:42)
[2023-03-05 20:57] VITALS: BMI 36.4
[2023-03-05] MEDS: Insulin Glargine-YFGN 100 UNIT/ML Pen 25 UNIT SC (22:23)
[2023-03-05 22:30] LABS: Bedside Glucose 175 mg/dL (74-106)
--- NOTE | 2023-03-05 23:31 | NURSING ---
Vanco stopped per pharmacy order d/t vanc trough high.
--- NOTE | 2023-03-06 01:33 | PHA.PHARE_ITS ---
Consult Pharmacy has been consulted to manage selected antiobiotic: Vancomycin Type of Consult: Follow-up Suspected Infection: Skin/Soft tissue Prior Doses of Antibiotics Received/Current Regimen: Medications Vancomycin HCl 1,250 mg/ (Sodium Chloride) 275 mls @ 167 mls/hr IV Q24H FRANCINE Stop: 04/05/23 22:31 Last Admin: 03/05/23 23:31 Dose: Infused Labs: Sodium 141 mmol/L (136-145) 03/01/23 05:41 Potassium 4.6 mmol/L (3.5-5.1) 03/01/23 05:41 Chloride 109 mmol/L (98-107) H 03/01/23 05:41 Carbon Dioxide 27.0 mmol/L (21.0-32.0) 03/01/23 05:41 Anion Gap 5 (5-15) 03/01/23 05:41 BUN 26 mg/dL (7-18) H 03/01/23 05:41 Creatinine 1.77 mg/dL (0.70-1.30) H 03/01/23 05:41 Est GFR (MDRD) Af Amer 49 mL/min (>60) L 03/01/23 05:41 Est GFR (MDRD) Non-Af 40 mL/min (>60) L 03/01/23 05:41 BUN/Creatinine Ratio 14.7 RATIO (10-20) 03/01/23 05:41 Glucose 150 mg/dL (74-106) H 03/01/23 05:41 Vancomycin Trough 22.0 ug/mL (5.0-15.0) H 03/05/23 22:04 Random Vancomycin 27.7 ug/mL (0.0-15.0) H 03/01/23 05:41 Microbiology: Microbiology 03/01/23 11:30 Urine, Catheterized Urine Culture - Final Yeast, not Tabitha albicans Weight used for dosin.5 kg Estimated Creatinine Clearance: 45 Goal Trough: 15-20 mcg/mL Pharmacy Plan for Drug Dosing: Vancomycin trough level, drawn 24.5hrs post-dose, was 22.0. This was above the t arget range of 15-20. Aborted the already hung dose (after 64ml (291mg) were infused). Another level will be drawn in 24 hours (already entered by RN), and further dosing will be determined from that result. Pharmacy Service will continue to monitor and adjust dosing as required. Follow-Up Labs: Trough Vancomycin Labs to be done on [date and time ordered]: 03/06/23 @2200
[2023-03-06 04:45] LABS: Bedside Glucose 135 mg/dL (74-106)
[2023-03-06 06:00] VITALS: BMI 35.6
[2023-03-06 07:15] LABS: Bedside Glucose 87 mg/dL (74-106)
[2023-03-06 07:52] VITALS: BP 116/69; PULSE 73; RESP 16; TEMP 36.8; O2SAT 97
[2023-03-06] MEDS: Fluconazole 100 MG Tablet PO (08:48)
[2023-03-06] MEDS: APIXABAN 5 MG TABLET PO ×2 (08:49→20:43)
[2023-03-06] MEDS: Zonisamide 50 MG Capsule PO ×2 (08:49→20:46)
[2023-03-06] MEDS: Tamsulosin HCl 0.4 MG Capsule PO ×2 (08:50→20:44)
[2023-03-06] MEDS: Sertraline 50 MG Tablet 100 MG PO (08:50)
[2023-03-06] MEDS: Magnesium Chloride 64 MG Delay Rel.Tablet 128 MG PO (08:50)
[2023-03-06] MEDS: Fenofibrate 48 MG Tablet PO (08:51)
[2023-03-06] MEDS: Amiodarone 200 MG Tablet PO (08:51)
[2023-03-06] MEDS: Multivitamins,Therapeutic Tablet 1 TABLET PO (08:51)
[2023-03-06] MEDS: Furosemide 40 MG Tablet PO ×2 (08:51→17:07)
[2023-03-06] MEDS: Empagliflozin 10 MG Tablet PO (08:51)
[2023-03-06] MEDS: Lisinopril 10 MG Tablet PO (08:51)
[2023-03-06] MEDS: Pantoprazole Sodium 20 MG Tablet 40 MG PO (08:51)
[2023-03-06] MEDS: Carvedilol 6.25 MG Tablet PO ×2 (08:51→17:06)
[2023-03-06] MEDS: Aspirin 81 MG TAB.CHEW PO (08:51)
[2023-03-06] MEDS: amLODIPine 10 MG Tablet PO (08:52)
[2023-03-06] MEDS: busPIRone 15 MG TABLET 7.5 MG PO ×2 (08:52→20:43)
[2023-03-06] MEDS: Glucerna Shake 120 ML LIQUID PO ×3 (08:54→17:06)
[2023-03-06] MEDS: oxyCODONE 5 MG Tablet PO ×2 (09:00→20:46)
[2023-03-06] MEDS: 0.9 % NaCl (Sterile) Posiflush 10 mL IV ×2 (10:51→23:10)
[2023-03-06 12:16] LABS: Bedside Glucose 119 mg/dL (74-106)
[2023-03-06] MEDS: Ferrous Sulfate 325 MG Tablet PO (13:00)
[2023-03-06] MEDS: Ascorbic Acid 500 MG Tablet 1000 MG PO (13:01)
[2023-03-06 15:19] VITALS: BMI 35.6
--- NOTE | 2023-03-06 16:59 | CASEMGMT ---
Social Work Insurance approved with NRD 03/11, EDC 03/12, indicating review was sent to the medical center director. SW phoned to update on above. Inquired about DC plans as IDT is recommending 01/04 supervision, along with wound care and IV ATB. stated I'll just take him home. What other options do I have?. SW educated to other options, such as SNF for further therapy and to improve to return home. Encouraged safe discharge plans for both pt and . SW educated to financial liability - insurance may approve SNF stay, but if not, OOP or Medicaid. stated they do not have enough finances for private pay. SW briefly asked about finances and pt should qualify for LYNN. Educated to referral to [facility] to complete LYNN application, and this worker to send secure email with [employer] SNF options in surrounding areas for part A or part B coverage. expressed understanding and provided email. Email sent with SNF list via [employer]. Updated DrOttoniel Will continue to follow. Imani Traore, NICKI DIESEL POWER SHOVEL OPERATOR
[2023-03-06] MEDS: metFORMIN HCl 500 MG Tablet PO (17:07)
[2023-03-06 17:38] LABS: Bedside Glucose 192 mg/dL (74-106)
[2023-03-06 20:33] VITALS: BP 138/68; PULSE 89; RESP 15; TEMP 36.5; O2SAT 98
[2023-03-06] MEDS: Senna/Docusate Sodium 1 Tablet 2 TABLET PO (20:45)
[2023-03-06] MEDS: Atorvastatin Calcium 80 MG Tablet PO (20:45)
[2023-03-06] MEDS: Insulin Glargine-YFGN 100 UNIT/ML Pen 25 UNIT SC (20:50)
[2023-03-06 21:17] LABS: Bedside Glucose 162 mg/dL (74-106)
[2023-03-06 22:02] VITALS: BMI 35.6
[2023-03-06 22:43] LABS: Vancomycin, Trough Level 16.8 ug/mL (5.0-15.0)
[2023-03-06] MEDS: Vancomycin IV 1,000 MG/200 ML BAG 200 MG IV (23:07)
--- NOTE | 2023-03-06 23:26 | PHA.PHARE_ITS ---
Consult Antibiotic Management Pharmacy has been consulted to manage selected antiobiotic: Vancomycin Type of Intervention Type of Consult: Follow-up Labs Labs: Sodium 141 mmol/L (136-145) 03/01/23 05:41 Potassium 4.6 mmol/L (3.5-5.1) 03/01/23 05:41 Chloride 109 mmol/L (98-107) H 03/01/23 05:41 Carbon Dioxide 27.0 mmol/L (21.0-32.0) 03/01/23 05:41 Anion Gap 5 (5-15) 03/01/23 05:41 BUN 26 mg/dL (7-18) H 03/01/23 05:41 Creatinine 1.77 mg/dL (0.70-1.30) H 03/01/23 05:41 Est GFR (MDRD) Af Amer 49 mL/min (>60) L 03/01/23 05:41 Est GFR (MDRD) Non-Af 40 mL/min (>60) L 03/01/23 05:41 BUN/Creatinine Ratio 14.7 RATIO (10-20) 03/01/23 05:41 Glucose 150 mg/dL (74-106) H 03/01/23 05:41 Vancomycin Trough 16.8 ug/mL (5.0-15.0) H 03/06/23 21:31 Random Vancomycin 27.7 ug/mL (0.0-15.0) H 03/01/23 05:41 Microbiology Microbiology: Microbiology 03/01/23 11:30 Urine, Catheterized Urine Culture - Final Yeast, not Tabitha albicans Goal Trough Goal Trough: 15-20 mcg/mL Pharmacy Plan for Drug Dosing Pharmacy Plan for Drug Dosing: VANCOMYCIN LEVEL RECEIVED Current Vancomycin Dose: on hold-last full dose of vancomycin was 1250mg admin 03/04 @2134. Note-did have about 291mg on 03/05 dose held due to high trough Number of Doses Received: several (currently on hold) Vancomycin Level: 16.8 Hours Since Last Dose: ~48 hours from last full dose Renal Function: NNL Renal Function Trend: NA Lab/Micro: NNL Vancomycin Plan/Comments: Patient had a trough drawn which resulted in a value of 16.8 (goal 15-20). Patient now within therapeutic range, will restart vancomycin. Will decrease dose and start vancomycin 1000mg IV Q24hr to start 02/08 05/01 @2300 Pending Level: 03/08/23 @2230, prior to 3rd total dose of new regimen. Pharmacy Service will continue to monitor and adjust dosing as required.
[2023-03-07 06:58] LABS: Bedside Glucose 146 mg/dL (74-106)
[2023-03-07 09:52] VITALS: BP 148/82; PULSE 93; RESP 18; TEMP 36.6; O2SAT 99
[2023-03-07] MEDS: Sertraline 50 MG Tablet 100 MG PO (09:53)
[2023-03-07] MEDS: Lisinopril 10 MG Tablet PO (09:53)
[2023-03-07] MEDS: Fluconazole 100 MG Tablet PO (09:54)
[2023-03-07] MEDS: Pantoprazole Sodium 20 MG Tablet 40 MG PO (09:54)
[2023-03-07] MEDS: Zonisamide 50 MG Capsule PO ×2 (09:54→22:44)
[2023-03-07] MEDS: amLODIPine 10 MG Tablet PO (09:54)
[2023-03-07] MEDS: busPIRone 15 MG TABLET 7.5 MG PO ×2 (09:54→21:12)
[2023-03-07] MEDS: Amiodarone 200 MG Tablet PO (09:55)
[2023-03-07] MEDS: Magnesium Chloride 64 MG Delay Rel.Tablet 128 MG PO (09:55)
[2023-03-07] MEDS: Fenofibrate 48 MG Tablet PO (09:55)
[2023-03-07] MEDS: Furosemide 40 MG Tablet PO ×2 (09:56→17:01)
[2023-03-07] MEDS: Carvedilol 6.25 MG Tablet PO ×2 (09:56→16:59)
[2023-03-07] MEDS: Aspirin 81 MG TAB.CHEW PO (09:56)
[2023-03-07] MEDS: APIXABAN 5 MG TABLET PO ×2 (09:56→21:12)
[2023-03-07] MEDS: Tamsulosin HCl 0.4 MG Capsule PO ×2 (09:56→21:12)
[2023-03-07] MEDS: Multivitamins,Therapeutic Tablet 1 TABLET PO (09:56)
[2023-03-07] MEDS: Empagliflozin 10 MG Tablet PO (09:56)
[2023-03-07] MEDS: Glucerna Shake 120 ML LIQUID PO ×3 (09:57→16:59)
[2023-03-07] MEDS: 0.9 % NaCl (Sterile) Posiflush 10 mL IV ×2 (10:32→22:58)
--- NOTE | 2023-03-07 11:47 | PCM.PROGNOTE ---
Subjective Subjective Afebrile VSS-systolic blood pressures are consistently greater than 130 and the diastolics are sometimes greater than 80. Resting heart rate is high normal for the most part. Carvedilol dose was increased to 6.25 mg twice daily recently. In the past he has been on as much as 25 mg twice daily. Maintaining appropriate oxygen saturation on RA Oral intake is good Last BM recorded was 03/03/23.......will ask the patient and if this is true give a laxative today. The blood sugar record was reviewed. All blood sugars have been under 200 for the past 2-1/2 days. He was started on Jardiance 10 mg daily on 03/05/2023. All sugars are less than 200 and he is no longer on a SS. Discussed with nursing - no problems that need addressed Reviewed the PT/OT/ST notes Medication list reviewed. Pain is well controlled. Alcides denies chest pain, shortness of breath, cough, nausea/vomiting/abdominal pain, lightheadedness and calf pain. The Wiggins had to be reinserted for urine retention. Urine in the Wiggins bag is pale yellow and clear. Objective Data Objective Data Vital Signs: Vital Signs Temp Pulse Resp BP Pulse Ox O2 Del Method O2 Flow Rate 97.9 F 93 18 148/82 H 99 Room Air 2 03/07/23 09:52 03/07/23 09:52 03/07/23 09:52 03/07/23 09:52 03/07/23 09:52 03/07/23 09:52 03/02/23 07:41 Oxygen Flow Rate (L/min) 2 Oxygen Delivery Method Room Air Weight: 240 lb 4.862 oz Body Mass Index (BMI) 35.6 Intake & Output: Intake and Output for Last 24 Hours 03/05/23 03/06/23 03/07/23 23:59 23:59 23:59 Intake Total 1938.52 / 1938.52 1421 / 1421 440 / 440 Output Total 6065 / 6065 3050 / 3050 500 / 500 Balance -4126.48 / -4126.48 -1629 / -1629 -60 / -60 Lab / Micro Data 03/01/23 05:41 03/01/23 05:41 Labs: Laboratory Results - last 24 hr 03/06/23 11:58: POC Glucose 119 H 03/06/23 17:08: POC Glucose 192 H 03/06/23 20:49: POC Glucose 162 H 03/06/23 21:31: Vancomycin Trough 16.8 H 03/07/23 06:35: POC Glucose 146 H Micro: Microbiology 03/01/23 11:30 Urine, Catheterized Urine Culture - Final Yeast, not Tabitha albicans Physical Exam Const alert and no apparent distress Constitutional Narrative: Sitting in the recliner at the bedside. Legs are elevated. General Appearance: cooperative Resp clear to auscultation bilaterally Cardio no gallops Cardio Narrative: irreg with controlled VR. GI normal to inspection, nondistended, normoactive bowel sounds, soft to palpation and non-tender Extremity no calf tenderness Extremity Narrative: Some swelling in the left leg. Very little bruising. The incision is intact and dry with no DC. There is no kylah-incisional erythema. Sutures to be removed today. No edema of the L leg. Skin General Skin Exam: no breakdown Rashes: no rashes Assessment & Plan Assessment/Plan (1) Physical debility: (2) Infected prosthetic knee joint: (3) Aftercare following explantation of knee joint prosthesis: (4) History of CVA (cerebrovascular accident): (5) Diabetes mellitus, type 2: (6) Urine retention: (7) Wiggins catheter in place: (8) BPH (benign prostatic hyperplasia): QUALIFIERS: Lower urinary tract symptom presence: symptoms present Lower urinary tract symptom detail: urinary hesitancy Qualified Code(s): N40.1 - Benign prostatic hyperplasia with lower urinary tract symptoms; R39.11 - Hesitancy of micturition (9) CKD (chronic kidney disease), stage III: QUALIFIERS: Chronic kidney disease stage 3 subtype: stage 3b (GFR 30-44) Qualified Code(s): N18.32 - Chronic kidney disease, stage 3b (10) Normochromic normocytic anemia: (11) Persistent atrial fibrillation: (12) Hypomagnesemia: (13) Depression: QUALIFIERS: Depression Type: reactive depression Qualified Code(s): F32.9 - Major depressive disorder, single episode, unspecified (14) Cognitive dysfunction: (15) Left-sided weakness: (16) Chronic anticoagulation: (17) Non-ischemic cardiomyopathy: (18) Atrial tachycardia: (19) Candiduria: (20) WANDA (obstructive sleep apnea): (21) Seizure disorder: PLAN: Plan 1. Continue therapy 2. Lab ordered for tomorrow 3. sutures removed. 4. Magaly will call Dr. Arias's office and ask him to order the brace that he wants. Until we receive another brace will continue with the current brace and wt bearing status. 5. DC to SNF set for 03/12/23 6. Continue antibiotic. Charges/Coding Visit Charges Inpatient E&M: 28759 Subs Hosp L2
[2023-03-07 12:13] LABS: Bedside Glucose 170 mg/dL (74-106)
[2023-03-07] MEDS: Ascorbic Acid 500 MG Tablet 1000 MG PO (12:16)
[2023-03-07] MEDS: Ferrous Sulfate 325 MG Tablet PO (12:16)
--- NOTE | 2023-03-07 16:39 | RAD_ITS ---
STUDY: X-RAY - RIGHT KNEE REASON FOR EXAM: Male, 73 years old. Post surgery/r knee infection TECHNIQUE: 2 view(s) of the knee. COMPARISON: None. FINDINGS: There is demineralization of the visualized distal femur. There is demineralization of the tibia and fibula. Normal proximal tibiofibular articulation. There is right knee replacement. There is a spacer device in the tibial component. There are atherosclerotic calcifications. RAD/Knee 1 or 2 Views IMPRESSION: Knee replacement with spacer component. Electronically Signed: Eduard Otto MD at 22:21 EDT ,
[2023-03-07 17:00] VITALS: BMI 35.6
[2023-03-07 17:40] LABS: Bedside Glucose 161 mg/dL (74-106)
[2023-03-07 20:45] VITALS: BP 124/70; PULSE 90; RESP 18; TEMP 36.6; O2SAT 97
[2023-03-07 20:47] VITALS: BMI 35.6
[2023-03-07] MEDS: Insulin Glargine-YFGN 100 UNIT/ML Pen 25 UNIT SC (21:11)
[2023-03-07] MEDS: Atorvastatin Calcium 80 MG Tablet PO (21:12)
[2023-03-07 21:23] LABS: Bedside Glucose 190 mg/dL (74-106)
[2023-03-07 22:00] VITALS: PULSE 90; RESP 16
[2023-03-07] MEDS: Vancomycin IV 1,000 MG/200 ML BAG 200 MG IV (22:49)
[2023-03-08 06:13] LABS: Absolute Lymphocyte Count 0.88 X10^3/uL (0.83-4.51); Absolute Neutrophil Count 7.3 X10^3/uL (2.0-7.7); Eosinophil# 0.46 X10^3/uL; Eosinophils% 4.6 % (0-5); Hematocrit 27.9 % (40-54); Hemoglobin 9.1 g/dL (13.0-16.5); Lymphocyte # 0.88 X10^3/ul (0.83-4.51); Lymphocyte % 8.8 % (19-41); Mean Corp Hgb Conc 32.6 g/dL (32-36); Mean Corpuscular Hgb 30.4 pg (27.0-32.0); Mean Corpuscular Volume 93.3 fL (80-94); Mean Platelet Vol. 10.8 fl (6.2-12.0); Monocyte# 1.15 X10^3/uL; Monocyte% 11.5 % (0-10); NRBC Flagged by Analyzer 0 % (0-5); Neutrophil # 7.33 X10^3/uL (2.7-7.7); Neutrophil % 73.4 % (47-70); Platelet Count 304 K/mm3 (150-450); RBC Distribution Width CV 12.1 % (11.6-14.6); RBC Distribution Width SD 41.2 fl (35.1-43.9); Red Blood Count 2.99 M/mm3 (4.6-6.2)
[2023-03-08 06:44] LABS: Anion Gap 4 (5-15); BUN 39 mg/dL (7-18); BUN/Creat Ratio 20.1 RATIO (10-20); Calcium,Total 8.9 mg/dL (8.5-10.1); Chloride 106 mmol/L (98-107); Creatinine, Serum 1.94 mg/dL (0.70-1.30); EST Glomerular Filtration Rate 36 mL/min (>60); Est Glom Filt Rate - Afr Amer 44 mL/min (>60); Estimated Creatinine Clearance 32.81 ml/min; Glucose 127 mg/dL (74-106); Sodium Level 138 mmol/L (136-145)
[2023-03-08 07:22] LABS: Bedside Glucose 131 mg/dL (74-106)
[2023-03-08 07:49] VITALS: BP 125/70; PULSE 87; RESP 16; TEMP 36.8; O2SAT 100
[2023-03-08 08:23] LABS: Erythrocyte Sedimentation Rate 40 mm/hr (0-20)
[2023-03-08] MEDS: Multivitamins,Therapeutic Tablet 1 TABLET PO (09:22)
[2023-03-08] MEDS: Zonisamide 50 MG Capsule PO ×2 (09:23→21:19)
[2023-03-08] MEDS: Aspirin 81 MG TAB.CHEW PO (09:23)
[2023-03-08] MEDS: Carvedilol 6.25 MG Tablet PO ×2 (09:23→18:18)
[2023-03-08] MEDS: Amiodarone 200 MG Tablet PO (09:24)
[2023-03-08] MEDS: busPIRone 15 MG TABLET 7.5 MG PO ×2 (09:24→21:17)
[2023-03-08] MEDS: Tamsulosin HCl 0.4 MG Capsule PO ×2 (09:25→21:17)
[2023-03-08] MEDS: APIXABAN 5 MG TABLET PO ×2 (09:25→21:17)
[2023-03-08] MEDS: Magnesium Chloride 64 MG Delay Rel.Tablet 128 MG PO (09:25)
[2023-03-08] MEDS: Empagliflozin 10 MG Tablet PO (09:25)
[2023-03-08] MEDS: Furosemide 40 MG Tablet PO ×2 (09:25→18:18)
[2023-03-08] MEDS: Pantoprazole Sodium 20 MG Tablet 40 MG PO (09:26)
[2023-03-08] MEDS: amLODIPine 10 MG Tablet PO (09:26)
[2023-03-08] MEDS: Sertraline 50 MG Tablet 100 MG PO (09:27)
[2023-03-08] MEDS: Fenofibrate 48 MG Tablet PO (09:27)
[2023-03-08] MEDS: Lisinopril 10 MG Tablet PO (09:27)
[2023-03-08] MEDS: Glucerna Shake 120 ML LIQUID PO ×3 (09:28→18:17)
[2023-03-08] MEDS: Ferrous Sulfate 325 MG Tablet PO (11:20)
[2023-03-08] MEDS: 0.9 % NaCl (Sterile) Posiflush 10 mL IV ×2 (11:20→15:40)
[2023-03-08] MEDS: Ascorbic Acid 500 MG Tablet 1000 MG PO (11:20)
[2023-03-08 11:50] LABS: Bedside Glucose 218 mg/dL (74-106)
[2023-03-08 12:19] VITALS: BMI 35.6
--- NOTE | 2023-03-08 14:23 | CASEMGMT ---
Social Work SW spoke with and she provided SNFs: [facility]. Referrals made via [facility]. Will continue to follow. Imani Traore MSW ENDOSCOPY REGISTERED NURSE
[2023-03-08 17:17] LABS: Bedside Glucose 222 mg/dL (74-106)
[2023-03-08] MEDS: metFORMIN HCl 500 MG Tablet PO (18:18)
[2023-03-08 19:53] VITALS: BP 104/54; PULSE 63; RESP 16; TEMP 36.6; O2SAT 96
[2023-03-08] MEDS: Atorvastatin Calcium 80 MG Tablet PO (21:17)
[2023-03-08] MEDS: Insulin Glargine-YFGN 100 UNIT/ML Pen 25 UNIT SC (21:19)
[2023-03-08 21:42] LABS: Bedside Glucose 236 mg/dL (74-106)
[2023-03-08 22:00] VITALS: PULSE 66; RESP 16
[2023-03-08 23:06] VITALS: BMI 35.6
[2023-03-08 23:14] LABS: Vancomycin, Trough Level 21.7 ug/mL (5.0-15.0)
--- NOTE | 2023-03-08 23:18 | NURSING ---
VANC for 2300 dose on 03/08/2023 was held per Pharmacy recommendation d/t VANC trough result of 21.7.
--- NOTE | 2023-03-08 23:23 | PCM.RX.CS ---
Consult Antibiotic Management Pharmacy has been consulted to manage selected antiobiotic: Vancomycin Type of Intervention Type of Consult: Follow-up Labs Labs: Sodium 138 mmol/L (136-145) 03/08/23 05:43 Potassium 4.0 mmol/L (3.5-5.1) 03/08/23 05:43 Chloride 106 mmol/L (98-107) 03/08/23 05:43 Carbon Dioxide 28.0 mmol/L (21.0-32.0) 03/08/23 05:43 Anion Gap 4 (5-15) L 03/08/23 05:43 BUN 39 mg/dL (7-18) H 03/08/23 05:43 Creatinine 1.94 mg/dL (0.70-1.30) H 03/08/23 05:43 Est GFR (MDRD) Af Amer 44 mL/min (>60) L 03/08/23 05:43 Est GFR (MDRD) Non-Af 36 mL/min (>60) L 03/08/23 05:43 BUN/Creatinine Ratio 20.1 RATIO (10-20) H 03/08/23 05:43 Glucose 127 mg/dL (74-106) H 03/08/23 05:43 Vancomycin Trough 21.7 ug/mL (5.0-15.0) H 03/08/23 22:14 Random Vancomycin 27.7 ug/mL (0.0-15.0) H 03/01/23 05:41 Microbiology Microbiology: Microbiology 03/01/23 11:30 Urine, Catheterized Urine Culture - Final Yeast, not Tabitha albicans Goal Trough Goal Trough: 15-20 mcg/mL Pharmacy Plan for Drug Dosing Pharmacy Plan for Drug Dosing: VANCOMYCIN LEVEL RECEIVED Current Vancomycin Dose: 1000MG IV Q24hr Number of Doses Received: several Vancomycin Level: 21.7 Hours Since Last Dose: 23.5hr Renal Function: 1.97/ 33 mL/min Renal Function Trend: SCr slightly worsened from last time labs were drawn Lab/Micro: n/a Vancomycin Plan/Comments: Patient had a trough drawn which resulted in a value of 21.7 (Goal 15-20). Since the patient's level is above therapeutic goal, will hold vancomycin a re-dose once trough is less than 20. Will get a random level tomorrow morning with AM labs, as trough likely to be less than 20 by then (do not want to wait another 24hrs to reassess). Will HOLD vancomycin at this time. Pending Level: *RANDOM* level 03/09/23 @0600 Pharmacy Service will continue to monitor and adjust dosing as required.
[2023-03-09 01:20] LABS: Bedside Glucose 152 mg/dL (74-106)
--- NOTE | 2023-03-09 01:35 | NURSING ---
Pt alerted staff of symptoms of low blood sugar and requested and Accu-check. At 01:00, pt BS check was 152. Pt requested some ricardo alvarezers as pt claims his BS may drop through the night and result in a low reading in the a.m. Ricardo crackers provided.
[2023-03-09 07:11] LABS: Bedside Glucose 167 mg/dL (74-106)
[2023-03-09 08:14] VITALS: BP 127/59; PULSE 51; RESP 15; TEMP 36.2; O2SAT 99
[2023-03-09] MEDS: Multivitamins,Therapeutic Tablet 1 TABLET PO (08:22)
[2023-03-09] MEDS: Amiodarone 200 MG Tablet PO (08:23)
[2023-03-09] MEDS: amLODIPine 10 MG Tablet PO (08:23)
[2023-03-09] MEDS: Pantoprazole Sodium 20 MG Tablet 40 MG PO (08:23)
[2023-03-09] MEDS: busPIRone 15 MG TABLET 7.5 MG PO ×2 (08:23→20:12)
[2023-03-09] MEDS: Fenofibrate 48 MG Tablet PO (08:24)
[2023-03-09] MEDS: Magnesium Chloride 64 MG Delay Rel.Tablet 128 MG PO (08:26)
[2023-03-09] MEDS: Lisinopril 10 MG Tablet PO (08:26)
[2023-03-09] MEDS: Zonisamide 50 MG Capsule PO ×2 (08:27→20:15)
[2023-03-09] MEDS: Tamsulosin HCl 0.4 MG Capsule PO ×2 (08:27→20:14)
[2023-03-09] MEDS: Furosemide 40 MG Tablet PO ×2 (08:28→16:56)
[2023-03-09] MEDS: Carvedilol 6.25 MG Tablet PO ×2 (08:29→16:54)
[2023-03-09] MEDS: APIXABAN 5 MG TABLET PO ×2 (08:29→20:14)
[2023-03-09] MEDS: Aspirin 81 MG TAB.CHEW PO (08:30)
[2023-03-09] MEDS: Empagliflozin 10 MG Tablet PO (08:30)
[2023-03-09] MEDS: Sertraline 50 MG Tablet 100 MG PO (10:07)
[2023-03-09] MEDS: 0.9 % NaCl (Sterile) Posiflush 10 mL IV ×2 (10:09→17:00)
[2023-03-09 11:38] LABS: Bedside Glucose 263 mg/dL (74-106)
[2023-03-09] MEDS: Ascorbic Acid 500 MG Tablet 1000 MG PO (12:44)
[2023-03-09] MEDS: Ferrous Sulfate 325 MG Tablet PO (12:45)
--- NOTE | 2023-03-09 13:18 | PN_ITS ---
Subjective Subjective Afebrile VSS Maintaining appropriate oxygen saturation on RA Oral intake is very good. Fluid intake is good but the urine output is exceeding it. He is taking furosemide 40 mg twice daily. Blood sugar record was reviewed. The blood sugars have been all less than 200 but prefer the past 2-day there are several BS's > 200. Blood sugar at at bedtime last night was 236 and the fasting this morning was 167. Blood sugar at lunch was 263. Will ask if he has been getting food other than what is on his plate. Fluid balance is negative every day since admission but, my am not sure nursing is capturing all his input. He has good urine output. Will and daily weights to the nursing care. Discussed with nursing - no problems that need addressed Reviewed the PT/OT/ST notes Medication list reviewed. All lab drawn yesterday was personally reviewed. The white blood cell count is normal at 10 with an unremarkable differential. Hemoglobin is stable and was 9.1 yesterday. Platelets are within normal limits and the ESR was 40. Electrolytes are normal and the BUN is 39, up from 26 on 03/01/2023 and the c reatinine is 1.94 which is up from 1.77 on 03/01/2023. His baseline for the past 3 years has been over 2. CRP is 17.2. Alcides denies eating food from home and is eating only what he gets on his tray + ricardo crackers. Rocky tells me his pain is adequately controlled. He is sleeping well at night and has a good appetite. He denies fevers/night sweats/shaking chills, headache, lightheadedness, chest pain, shortness of breath, nausea/vomiting/abdominal pain, dysuria and calf tenderness. Objective Data Objective Data Vital Signs: Vital Signs Temp Pulse Resp BP Pulse Ox O2 Del Method O2 Flow Rate 97.2 F L 51 L 15 127/59 H 99 Room Air 2 03/09/23 08:14 03/09/23 08:14 03/09/23 08:14 03/09/23 08:14 03/09/23 08:14 03/09/23 08:14 03/02/23 07:41 Oxygen Flow Rate (L/min) 2 Oxygen Delivery Method Room Air Weight: 240 lb 4.862 oz Body Mass Index (BMI) 35.6 Intake & Output: Intake and Output for Last 24 Hours 03/07/23 03/08/23 03/09/23 23:59 23:59 23:59 Intake Total 1550 / 1750 1900 / 1900 1300 / 1300 Output Total 2675 / 2675 3650 / 3650 2600 / 2600 Balance -1125 / -925 -1750 / -1750 -1300 / -1300 Lab / Micro Data 03/08/23 05:43 03/08/23 05:43 Labs: Laboratory Results - last 24 hr 02/28/23 21:00: POC Glucose 217 H 03/01/23 06:05: POC Glucose 149 H 03/02/23 12:05: POC Glucose 152 H 03/02/23 16:49: POC Glucose 188 H 03/02/23 17:46: POC Glucose 228 H 03/08/23 16:54: POC Glucose 222 H 03/08/23 21:16: POC Glucose 236 H 03/08/23 22:14: Vancomycin Trough 21.7 H 03/09/23 01:00: POC Glucose 152 H 03/09/23 06:14: POC Glucose 167 H 03/09/23 11:15: POC Glucose 263 H Micro: Microbiology 03/01/23 11:30 Urine, Catheterized Urine Culture - Final Yeast, not Tabitha albicans Physical Exam Const alert and no apparent distress Constitutional Narrative: Sitting in the recliner at the bedside. Legs are elevated. General Appearance: cooperative Resp clear to auscultation bilaterally Resp Narrative: Not tachypneic and breathing is not labored. Effort and Inspection: able to speak in complete sentences Cardio regular rate, no murmurs, no rub and no gallops Cardio Narrative: irreg with controlled VR. GI normal to inspection, nondistended, normoactive bowel sounds, soft to palpation and non-tender GI Narrative: Guarding with palpation Narrative: Wiggins catheter is present. There is no erythema around or discharge from the urethra. Urine in the tubing is pale and clear with occasional small blood clot. Bladder / Kidney Exam: catheter in place Extremity normal capillary refill and no calf tenderness Skin Skin Narrative: No rashes. He has ecchymosis of the knee and surrounding area due to recent surgery. General Skin Exam: no breakdown Rashes: no rashes Wound Narrative: There is a long midline incision over the R knee from recent explant and placement of an antibiotic spacer. The incision is intact with no kylah- incisional erythema and no purulent DC. Bruising is resolving. Assessment & Plan Assessment/Plan (1) Physical debility: (2) Infected prosthetic knee joint: (3) Aftercare following explantation of knee joint prosthesis: (4) History of CVA (cerebrovascular accident): (5) Diabetes mellitus, type 2: (6) Urine retention: (7) Wiggins catheter in place: (8) BPH (benign prostatic hyperplasia): QUALIFIERS: Lower urinary tract symptom presence: symptoms present Lower urinary tract symptom detail: urinary hesitancy Qualified Code(s): N40.1 - Benign prostatic hyperplasia with lower urinary tract symptoms; R39.11 - Hesitancy of micturition (9) CKD (chronic kidney disease), stage III: QUALIFIERS: Chronic kidney disease stage 3 subtype: stage 3b (GFR 30-44) Qualified Code(s): N18.32 - Chronic kidney disease, stage 3b (10) Normochromic normocytic anemia: (11) Persistent atrial fibrillation: (12) Hypomagnesemia: (13) Depression: QUALIFIERS: Depression Type: reactive depression Qualified Code(s): F32.9 - Major depressive disorder, single episode, unspecified (14) Cognitive dysfunction: (15) Left-sided weakness: (16) Chronic anticoagulation: (17) Non-ischemic cardiomyopathy: (18) Atrial tachycardia: (19) Candiduria: (20) WANDA (obstructive sleep apnea): (21) Seizure disorder: PLAN: Plan 1. Continue therapy 2. Increase at bedtime glargine to 30 units. 3. Reinstitute a sliding insulin scale 3 times daily AC. 4. Will discuss discharge to residential with the social media developer on Saturday. [facility] telling [facility] she had to pay a month in advance and they do not have the money for this. They have both [employer] and [employer] insurance. I assured Magaly and Alcides we would straighten this out and if he has to stay an extra day or 2 to do this it will be OK........he is not safe to go home and be by himself and he needs to continue getting IV antibiotics. 5. Vanco trough was a little high last night.......pharmacy is managing the dosing. Charges/Coding Visit Charges Inpatient E&M: 64815 Subs Hosp L2
[2023-03-09 15:08] VITALS: BMI 35.6
[2023-03-09 15:33] LABS: Vancomycin, Random Level 18.4 ug/mL (0.0-15.0)
[2023-03-09 16:48] LABS: Bedside Glucose 313 mg/dL (74-106)
[2023-03-09] MEDS: Insulin Lispro 100 UNIT/ML INSULN.PEN SC (16:53)
[2023-03-09] MEDS: metFORMIN HCl 500 MG Tablet PO (16:56)
[2023-03-09] MEDS: Vancomycin IV 1,000 MG/200 ML BAG 200 MG IV (16:56)
[2023-03-09] MEDS: Glucerna Shake 120 ML LIQUID PO (17:04)
--- NOTE | 2023-03-09 18:56 | PCM.RX.CS ---
Consult Antibiotic Management Pharmacy has been consulted to manage selected antiobiotic: Vancomycin Type of Intervention Type of Consult: Follow-up Suspected Infection Suspected Infection: Other Labs Labs: Sodium 138 mmol/L (136-145) 03/08/23 05:43 Potassium 4.0 mmol/L (3.5-5.1) 03/08/23 05:43 Chloride 106 mmol/L (98-107) 03/08/23 05:43 Carbon Dioxide 28.0 mmol/L (21.0-32.0) 03/08/23 05:43 Anion Gap 4 (5-15) L 03/08/23 05:43 BUN 39 mg/dL (7-18) H 03/08/23 05:43 Creatinine 1.94 mg/dL (0.70-1.30) H 03/08/23 05:43 Est GFR (MDRD) Af Amer 44 mL/min (>60) L 03/08/23 05:43 Est GFR (MDRD) Non-Af 36 mL/min (>60) L 03/08/23 05:43 BUN/Creatinine Ratio 20.1 RATIO (10-20) H 03/08/23 05:43 Glucose 127 mg/dL (74-106) H 03/08/23 05:43 Vancomycin Trough 21.7 ug/mL (5.0-15.0) H 03/08/23 22:14 Random Vancomycin 18.4 ug/mL (0.0-15.0) H 03/09/23 14:15 Microbiology Microbiology: Microbiology 03/01/23 11:30 Urine, Catheterized Urine Culture - Final Yeast, not Tabitha albicans Goal Trough Goal Trough: 15-20 mcg/mL Pharmacy Plan for Drug Dosing Pharmacy Plan for Drug Dosing: VANCOMYCIN LEVEL RECEIVED Current Vancomycin Dose: on hold due to elevated trough. Last given dose was 1000mg q24 Number of Doses Received: Vancomycin Level: last trough resulted at 21.7 on 03/08/23. random level resulted at 18.4 on 03/09/23 Hours Since Last Dose: 39 hours since last dose Renal Function: SrCr 1.94 Renal Function Trend: Lab/Micro: Vancomycin Plan/Comments: recommend restarting Vancomycin at a dose of 1000mg q48h Pending Level: 03/13/23 at 1630 Pharmacy Service will continue to monitor and adjust dosing as required. Follow-Up Labs Follow-Up Labs: Trough: Vancomycin (03/13/23 @ 1630)
[2023-03-09 19:27] VITALS: BP 96/64; PULSE 90; RESP 14; TEMP 36.4; O2SAT 99
[2023-03-09] MEDS: Insulin Glargine-YFGN 100 UNIT/ML Pen 30 UNIT SC (20:13)
[2023-03-09] MEDS: Atorvastatin Calcium 80 MG Tablet PO (20:14)
[2023-03-09 20:26] VITALS: BMI 35.6
[2023-03-09 21:10] LABS: Bedside Glucose 267 mg/dL (74-106)
[2023-03-09 22:00] VITALS: PULSE 84
[2023-03-10 06:00] VITALS: BMI 35.5
[2023-03-10] MEDS: Sertraline 50 MG Tablet 100 MG PO (07:24)
[2023-03-10] MEDS: amLODIPine 10 MG Tablet PO (07:25)
[2023-03-10] MEDS: Aspirin 81 MG TAB.CHEW PO (07:25)
[2023-03-10] MEDS: Tamsulosin HCl 0.4 MG Capsule PO ×2 (07:25→22:14)
[2023-03-10] MEDS: Multivitamins,Therapeutic Tablet 1 TABLET PO (07:25)
[2023-03-10] MEDS: Pantoprazole Sodium 20 MG Tablet 40 MG PO (07:25)
[2023-03-10] MEDS: Amiodarone 200 MG Tablet PO (07:26)
[2023-03-10] MEDS: Lisinopril 10 MG Tablet PO (07:26)
[2023-03-10] MEDS: Fenofibrate 48 MG Tablet PO (07:26)
[2023-03-10] MEDS: APIXABAN 5 MG TABLET PO ×2 (07:26→22:14)
[2023-03-10] MEDS: Magnesium Chloride 64 MG Delay Rel.Tablet 128 MG PO (07:26)
[2023-03-10] MEDS: busPIRone 15 MG TABLET 7.5 MG PO ×2 (07:28→22:14)
[2023-03-10] MEDS: Zonisamide 50 MG Capsule PO ×2 (07:29→22:13)
[2023-03-10] MEDS: Empagliflozin 10 MG Tablet PO (07:30)
[2023-03-10] MEDS: Carvedilol 6.25 MG Tablet PO ×2 (07:30→17:02)
[2023-03-10] MEDS: Furosemide 40 MG Tablet PO ×2 (07:31→17:03)
[2023-03-10 07:50] LABS: Bedside Glucose 142 mg/dL (74-106)
[2023-03-10 10:00] VITALS: BP 113/69; PULSE 91; RESP 18; TEMP 36.7; O2SAT 94
[2023-03-10 11:32] LABS: Bedside Glucose 225 mg/dL (74-106)
[2023-03-10] MEDS: Ascorbic Acid 500 MG Tablet 1000 MG PO (12:02)
[2023-03-10] MEDS: Ferrous Sulfate 325 MG Tablet PO (12:02)
[2023-03-10] MEDS: Insulin Lispro 100 UNIT/ML INSULN.PEN SC ×2 (12:04→17:01)
[2023-03-10] MEDS: Glucerna Shake 120 ML LIQUID PO (12:06)
[2023-03-10 14:26] VITALS: BMI 35.5
[2023-03-10 16:46] LABS: Bedside Glucose 182 mg/dL (74-106)
[2023-03-10] MEDS: metFORMIN HCl 500 MG Tablet PO (17:02)
[2023-03-10 20:24] VITALS: BP 105/65; PULSE 87; RESP 18; TEMP 36.7; O2SAT 99
[2023-03-10 21:25] LABS: Bedside Glucose 182 mg/dL (74-106)
[2023-03-10 22:00] VITALS: BMI 35.5
[2023-03-10] MEDS: Insulin Glargine-YFGN 100 UNIT/ML Pen 30 UNIT SC (22:00)
[2023-03-10] MEDS: Atorvastatin Calcium 80 MG Tablet PO (22:13)
[2023-03-10] MEDS: BENZOCAINE/MENTHOL 1 LOZENGE MUCOUS MEM (22:16)
[2023-03-10] MEDS: Acetaminophen 500 MG Tablet 1000 MG PO (23:31)
[2023-03-11 06:00] VITALS: BMI 34.6
[2023-03-11 07:06] LABS: Bedside Glucose 95 mg/dL (74-106)
[2023-03-11 07:26] VITALS: BP 108/56; PULSE 79; RESP 15; TEMP 35.7; O2SAT 97
[2023-03-11] MEDS: Pantoprazole Sodium 20 MG Tablet 40 MG PO (08:16)
[2023-03-11] MEDS: Magnesium Chloride 64 MG Delay Rel.Tablet 128 MG PO (08:16)
[2023-03-11] MEDS: APIXABAN 5 MG TABLET PO ×2 (08:16→21:46)
[2023-03-11] MEDS: Fenofibrate 48 MG Tablet PO (08:16)
[2023-03-11] MEDS: Carvedilol 6.25 MG Tablet PO ×2 (08:16→16:34)
[2023-03-11] MEDS: Furosemide 40 MG Tablet PO ×2 (08:16→16:34)
[2023-03-11] MEDS: Tamsulosin HCl 0.4 MG Capsule PO ×2 (08:16→21:46)
[2023-03-11] MEDS: Sertraline 50 MG Tablet 100 MG PO (08:16)
[2023-03-11] MEDS: Amiodarone 200 MG Tablet PO (08:16)
[2023-03-11] MEDS: Multivitamins,Therapeutic Tablet 1 TABLET PO (08:16)
[2023-03-11] MEDS: amLODIPine 10 MG Tablet PO (08:16)
[2023-03-11] MEDS: Aspirin 81 MG TAB.CHEW PO (08:17)
[2023-03-11] MEDS: Zonisamide 50 MG Capsule PO ×2 (08:17→21:46)
[2023-03-11] MEDS: busPIRone 15 MG TABLET 7.5 MG PO ×2 (08:17→21:47)
[2023-03-11] MEDS: Lisinopril 10 MG Tablet PO (08:19)
[2023-03-11] MEDS: Empagliflozin 10 MG Tablet PO (08:21)
[2023-03-11] MEDS: 0.9 % NaCl (Sterile) Posiflush 10 mL IV ×2 (09:02→16:34)
--- NOTE | 2023-03-11 09:51 | PCM.PROGNOTE ---
Subjective Subjective Rocephin and vancomycin Afebrile VSS-blood pressure is well controlled and the heart rate is within normal limits. Maintaining appropriate oxygen saturation on RA Oral intake is good. Fluid intake is excellent. Blood sugar record was reviewed. The blood sugars are better with institution of the sliding scale insulin and increase in the nighttime glargine however yesterday he had blood sugars that ranged from 140 2 in the AM to 225 at lunch. Discussed with nursing - no problems that need addressed Reviewed the PT/OT/ST notes Medication list reviewed. The XRAY done Saturday shows good alignment. There is demineralization of the distal femur, tibia and fibula. Alcides denies pain and also denies sore mouth, painful swallowing, soreness of the tip of the penis and diarrhea. He is sleeping well and having regular bowel movements. Appetite is good. Objective Data Objective Data Vital Signs: Vital Signs Temp Pulse Resp BP Pulse Ox O2 Del Method O2 Flow Rate 96.3 F L 79 15 108/56 L 97 Room Air 2 03/11/23 07:26 03/11/23 07:03/11/23 07:26 03/11/23 07:26 03/11/23 07:26 03/11/23 07:26 03/11/23 06:30 Oxygen Flow Rate (L/min) 2 Oxygen Delivery Method Room Air Weight: 239 lb 13.807 oz Body Mass Index (BMI) 35.5 Intake & Output: Intake and Output for Last 24 Hours 03/09/23 03/10/23 03/11/23 23:59 23:59 23:59 Intake Total 3080 / 3080 2290 / 2290 350 / 350 Output Total 3600 / 4200 4150 / 4150 900 / 900 Balance -520 / -1120 -1860 / -1860 -550 / -550 Lab / Micro Data 03/11/23 10:20 03/08/23 05:43 Labs: Laboratory Results - last 24 hr 03/10/23 11:09: POC Glucose 225 H 03/10/23 16:24: POC Glucose 182 H 03/10/23 20:59: POC Glucose 182 H 03/11/23 06:05: POC Glucose 95 Micro: Microbiology 03/01/23 11:30 Urine, Catheterized Urine Culture - Final Yeast, not Tabitha albicans Physical Exam Const alert Constitutional Narrative: He is participating in his ADL's more since nursing had a talk with him on Saturday. He is doing his own toileting now. General Appearance: cooperative HEENT normocephalic HEENT Narrative: No thrush. Mouth: dry mucous membranes Resp clear to auscultation bilaterally Auscultation: diminished lung sounds Cardio no gallops Cardio Narrative: irreg rhythm.........rate controlled. GI normal to inspection, nondistended, normoactive bowel sounds, soft to palpation and non-tender GI Narrative: No guarding with palpation Extremity no calf tenderness General Extremity: Negative for edema Skin Wound Narrative: The incision is intact and healing well. The incision is actually beautiful and there is no DC, no erythema, no swelling. There is a small opening in the skin of the lateral proximal calf that may be from tape.........no sign infection. Neuro Neuro Narrative: perseverates and has some trouble with word finding and finishing his thoughts. Psych cooperative and affect normal Appearance: appropriate Attitude: No agitated Assessment & Plan Assessment/Plan (1) Physical debility: (2) Infected prosthetic knee joint: (3) Aftercare following explantation of knee joint prosthesis: (4) History of CVA (cerebrovascular accident): (5) Diabetes mellitus, type 2: (6) Urine retention: (7) Wiggins catheter in place: (8) BPH (benign prostatic hyperplasia): QUALIFIERS: Lower urinary tract symptom detail: urinary hesitancy Lower urinary tract symptom presence: symptoms present Qualified Code(s): N40.1 - Benign prostatic hyperplasia with lower urinary tract symptoms; R39.11 - Hesitancy of micturition (9) CKD (chronic kidney disease), stage III: QUALIFIERS: Chronic kidney disease stage 3 subtype: stage 3b (GFR 30-44) Qualified Code(s): N18.32 - Chronic kidney disease, stage 3b (10) Normochromic normocytic anemia: (11) Persistent atrial fibrillation: (12) Hypomagnesemia: (13) Depression: QUALIFIERS: Depression Type: reactive depression Qualified Code(s): F32.9 - Major depressive disorder, single episode, unspecified (14) Cognitive dysfunction: (15) Left-sided weakness: (16) Chronic anticoagulation: (17) Non-ischemic cardiomyopathy: (18) Atrial tachycardia: (19) Candiduria: (20) WANDA (obstructive sleep apnea): (21) Seizure disorder: (22) Osteopenia determined by x-ray: PLAN: Likely related to disuse over the past year with limited weight bearing. PLAN: Plan 1. Continue therapy 2. CBC with differential, ESR, CRP and procalcitonin now 3. I am concerned about the elevated ESR, CRP, BS's and WBC count. BS's were well controlled and nothing has changed with diet.......may be due to uncontrolled infection. 4. Talked with the SW about [facility] wanting a month of payment up front which they are not able to do and she will check this out. He is not safe to go home and be by himself at home yet. 5. Apparently he has been eating ricardo crackers........he told the nurses his BS was low and when they checked it was 152. I told him this is contributing to the elevated sugars and if he wants the wound to heal and the infection to resolve we need to tightly control the BS's 6. check a Vitamin D level and start a Vitamin D supplement, calcium and a bisphosphonate. Charges/Coding Visit Charges Inpatient E&M: 87017 Subs Hosp L2
--- NOTE | 2023-03-11 10:17 | CASEMGMT ---
Social Work Telephone call from Dr. Gaitan. Dr. Gaitan reports to have spoken with patient spouse, Magaly. Magaly has concerns about being able to afford halfway as [facility] called Magaly on Saturday to discuss financial's, per Dr. Gaitan. Telephone call to Magaly. Magaly reports to have spoken with [facility] on Saturday (03/10) and to have been told that Magaly will need to pay $8,000 upfront for patient to go to [facility]. Magaly reports to be unable to afford $8,000. This social media marketing manager reviewed patient chart and checked [facility] as Magaly also inquired about why referral was sent to [facility]. This social media marketing manager informing Magaly that per [facility] declined patient and is appears that [facility] is second choice, Magaly confirms that [facility] is second choice for patient and continues to be agreeable to [facility] as facility of choice since [facility] declined. This social media marketing manager noting that a [facility] application should have been submitted via [facility]. Magaly reports to have not heard anything from [facility]. This social media marketing manager going over insurance update process and possibility of patient insurance covering skilled time a [facility], but a pre-cert will need to be submitted. Patient has review today and unsure if insurance will provide more time. Magaly aware that patient may need to discharge tomorrow if continued stay is not approved on Rehab. This social media marketing manager informed Magaly that a request for skilled time through insurance will be sent by [facility] if Rehab time is denied. Magaly voiced understanding. This social media marketing manager to reach out to [facility] to confirm that they can start pre-cert if Rehab is denied as well as follow up with [facility]. Secure e-mail sent to [facility] inquiring about medicaid application status. Message sent via [employer] to [facility] inquiring about being able to start pre-cert, if needed. PLAN: Continue Rehab stay vs. [facility] (skilled vs. [facility]) Social Work to continue to follow. Alejandra CACERES, AUBREE
[2023-03-11] MEDS: Insulin Lispro 100 UNIT/ML INSULN.PEN SC ×2 (10:22→21:45)
[2023-03-11 10:50] LABS: Erythrocyte Sedimentation Rate 21 mm/hr (0-20)
[2023-03-11 10:57] LABS: Absolute Lymphocyte Count 0.67 X10^3/uL (0.83-4.51); Absolute Neutrophil Count 6.4 X10^3/uL (2.0-7.7); Basophil% 1.2 % (0-1); Eosinophil# 0.44 X10^3/uL; Eosinophils% 5.2 % (0-5); Hematocrit 31.2 % (40-54); Hemoglobin 9.9 g/dL (13.0-16.5); Lymphocyte # 0.67 X10^3/ul (0.83-4.51); Lymphocyte % 7.9 % (19-41); Mean Corp Hgb Conc 31.7 g/dL (32-36); Mean Corpuscular Hgb 30.3 pg (27.0-32.0); Mean Corpuscular Volume 95.4 fL (80-94); Mean Platelet Vol. 11.6 fl (6.2-12.0); Monocyte# 0.82 X10^3/uL; Monocyte% 9.7 % (0-10); NRBC Flagged by Analyzer 0 % (0-5); Neutrophil # 6.39 X10^3/uL (2.7-7.7); Neutrophil % 75.3 % (47-70); Platelet Count 313 K/mm3 (150-450); RBC Distribution Width CV 12.2 % (11.6-14.6); RBC Distribution Width SD 42.3 fl (35.1-43.9); Red Blood Count 3.27 M/mm3 (4.6-6.2); White Blood Count 8.5 K/mm3 (4.4-11.0)
[2023-03-11 11:23] LABS: Procalcitonin 0.08 ng/mL (0.00-0.09)
[2023-03-11 11:32] LABS: Bedside Glucose 155 mg/dL (74-106)
[2023-03-11] MEDS: Glucerna Shake 120 ML LIQUID PO ×2 (11:58→16:34)
[2023-03-11] MEDS: Ascorbic Acid 500 MG Tablet 1000 MG PO (11:58)
[2023-03-11] MEDS: Ferrous Sulfate 325 MG Tablet PO (11:59)
--- NOTE | 2023-03-11 13:24 | CASEMGMT ---
Social Work Team meeting held. Patient present as well as patient spouse, Makenzie. Patient with insurance update due on 03/11/2023 with no continued stay approval guaranteed. Discharge plan is undetermined, home vs. [facility] ([facility] vs. skilled). Team concerned about patient returning to home with family due to level of assistance, patient family voiced understanding. Patient to continue with further care and treatment on the Inpatient Rehab Unit. Social Work to continue to follow. Alejandra CACERES, TARA-S
[2023-03-11 13:31] LABS: Vitamin D,25 Hydroxy 39.5 ng/mL
[2023-03-11 16:07] VITALS: BMI 34.6
[2023-03-11] MEDS: Vancomycin IV 1,000 MG/200 ML BAG 200 MG IV (16:33)
[2023-03-11] MEDS: Calcium Carbonate 500 MG Tablet PO (16:34)
[2023-03-11] MEDS: metFORMIN HCl 500 MG Tablet PO (16:34)
[2023-03-11 17:03] LABS: Bedside Glucose 132 mg/dL (74-106)
[2023-03-11 20:12] VITALS: BP 125/71; PULSE 90; RESP 16; TEMP 36.4; O2SAT 96
[2023-03-11 21:40] VITALS: BMI 34.6
[2023-03-11] MEDS: Insulin Glargine-YFGN 100 UNIT/ML Pen 30 UNIT SC (21:44)
[2023-03-11] MEDS: Atorvastatin Calcium 80 MG Tablet PO (21:46)
[2023-03-11] MEDS: Acetaminophen 500 MG Tablet 1000 MG PO (21:51)
[2023-03-11 22:31] LABS: Bedside Glucose 189 mg/dL (74-106)
[2023-03-11] MEDS: oxyCODONE 5 MG Tablet PO (23:31)
[2023-03-12 06:00] VITALS: BMI 34.4
[2023-03-12] MEDS: Alendronate Sodium 70 MG Tablet PO (06:07)
[2023-03-12 06:44] LABS: Bedside Glucose 106 mg/dL (74-106)
[2023-03-12 07:39] VITALS: BP 119/73; PULSE 89; RESP 17; TEMP 36.3; O2SAT 99
[2023-03-12] MEDS: Pantoprazole Sodium 20 MG Tablet 40 MG PO (08:29)
[2023-03-12] MEDS: Magnesium Chloride 64 MG Delay Rel.Tablet 128 MG PO (08:30)
[2023-03-12] MEDS: Furosemide 40 MG Tablet PO ×2 (08:30→17:18)
[2023-03-12] MEDS: Calcium Carbonate 500 MG Tablet PO ×2 (08:30→17:17)
[2023-03-12] MEDS: Aspirin 81 MG TAB.CHEW PO (08:30)
[2023-03-12] MEDS: Cholecalciferol (VIT D3) 25 MCG TABLET (1,000 UNITS) 50 MCG PO (08:30)
[2023-03-12] MEDS: Tamsulosin HCl 0.4 MG Capsule PO ×2 (08:31→21:02)
[2023-03-12] MEDS: Lisinopril 10 MG Tablet PO (08:31)
[2023-03-12] MEDS: Glucerna Shake 120 ML LIQUID PO ×2 (08:31→17:17)
[2023-03-12] MEDS: Fenofibrate 48 MG Tablet PO (08:31)
[2023-03-12] MEDS: amLODIPine 10 MG Tablet PO (08:32)
[2023-03-12] MEDS: Amiodarone 200 MG Tablet PO (08:32)
[2023-03-12] MEDS: Carvedilol 6.25 MG Tablet PO ×2 (08:32→17:15)
[2023-03-12] MEDS: Zonisamide 50 MG Capsule PO ×2 (08:33→21:03)
[2023-03-12] MEDS: Empagliflozin 10 MG Tablet PO (08:33)
[2023-03-12] MEDS: Sertraline 50 MG Tablet 100 MG PO (08:33)
[2023-03-12] MEDS: Multivitamins,Therapeutic Tablet 1 TABLET PO (08:33)
[2023-03-12] MEDS: APIXABAN 5 MG TABLET PO ×2 (08:34→21:02)
[2023-03-12] MEDS: busPIRone 15 MG TABLET 7.5 MG PO ×2 (08:34→21:01)
[2023-03-12] MEDS: Insulin Lispro 100 UNIT/ML INSULN.PEN SC ×4 (08:44→21:08)
[2023-03-12] MEDS: 0.9 % NaCl (Sterile) Posiflush 10 mL IV (09:23)
[2023-03-12 11:45] LABS: Bedside Glucose 201 mg/dL (74-106)
[2023-03-12] MEDS: Ferrous Sulfate 325 MG Tablet PO (11:54)
[2023-03-12] MEDS: Ascorbic Acid 500 MG Tablet 1000 MG PO (11:55)
[2023-03-12 13:32] VITALS: BMI 34.4
[2023-03-12 16:32] LABS: Bedside Glucose 226 mg/dL (74-106)
[2023-03-12] MEDS: metFORMIN HCl 500 MG Tablet PO (17:17)
[2023-03-12 19:53] VITALS: BP 118/68; PULSE 87; RESP 16; TEMP 36.9; O2SAT 97
[2023-03-12] MEDS: Atorvastatin Calcium 80 MG Tablet PO (21:03)
[2023-03-12] MEDS: Acetaminophen 500 MG Tablet 1000 MG PO (21:03)
[2023-03-12] MEDS: oxyCODONE 5 MG Tablet PO (21:04)
[2023-03-12] MEDS: Insulin Glargine-YFGN 100 UNIT/ML Pen 30 UNIT SC (21:07)
[2023-03-12 21:32] LABS: Bedside Glucose 169 mg/dL (74-106)
[2023-03-13 06:00] VITALS: BMI 33.7
[2023-03-13 06:44] LABS: Bedside Glucose 119 mg/dL (74-106)
[2023-03-13 07:56] VITALS: BP 114/60; PULSE 63; RESP 18; TEMP 36.6; O2SAT 97
[2023-03-13] MEDS: Amiodarone 200 MG Tablet PO (08:18)
[2023-03-13] MEDS: Pantoprazole Sodium 20 MG Tablet 40 MG PO (08:18)
[2023-03-13] MEDS: Tamsulosin HCl 0.4 MG Capsule PO ×2 (08:18→21:11)
[2023-03-13] MEDS: Empagliflozin 10 MG Tablet PO (08:19)
[2023-03-13] MEDS: busPIRone 15 MG TABLET 7.5 MG PO ×2 (08:19→21:11)
[2023-03-13] MEDS: Calcium Carbonate 500 MG Tablet PO ×2 (08:19→17:08)
[2023-03-13] MEDS: Magnesium Chloride 64 MG Delay Rel.Tablet 128 MG PO (08:19)
[2023-03-13] MEDS: Fenofibrate 48 MG Tablet PO (08:19)
[2023-03-13] MEDS: Lisinopril 10 MG Tablet PO (08:19)
[2023-03-13] MEDS: APIXABAN 5 MG TABLET PO ×2 (08:19→21:11)
[2023-03-13] MEDS: Sertraline 50 MG Tablet 100 MG PO (08:19)
[2023-03-13] MEDS: Cholecalciferol (VIT D3) 25 MCG TABLET (1,000 UNITS) 50 MCG PO (08:19)
[2023-03-13] MEDS: Furosemide 40 MG Tablet PO ×2 (08:20→17:08)
[2023-03-13] MEDS: Carvedilol 6.25 MG Tablet PO ×2 (08:20→17:08)
[2023-03-13] MEDS: Multivitamins,Therapeutic Tablet 1 TABLET PO (08:20)
[2023-03-13] MEDS: Aspirin 81 MG TAB.CHEW PO (08:20)
[2023-03-13] MEDS: Insulin Lispro 100 UNIT/ML INSULN.PEN SC ×3 (08:20→21:15)
[2023-03-13] MEDS: Zonisamide 50 MG Capsule PO ×2 (08:20→21:10)
[2023-03-13] MEDS: amLODIPine 10 MG Tablet PO (08:21)
[2023-03-13] MEDS: Glucerna Shake 120 ML LIQUID PO ×3 (08:25→17:09)
[2023-03-13] MEDS: 0.9% Saline Lock 10 ML Syringe IV (11:06)
[2023-03-13 11:26] LABS: Bedside Glucose 126 mg/dL (74-106)
[2023-03-13] MEDS: Ferrous Sulfate 325 MG Tablet PO (11:43)
[2023-03-13] MEDS: Ascorbic Acid 500 MG Tablet 1000 MG PO (11:45)
--- NOTE | 2023-03-13 12:34 | CASEMGMT ---
Addendum entered by Imani Traore 03/14/23 15:15: SW phoned to follow up on DC planning. Explained precert is pending at [facility]. Lissette submitted pt's LYNN carlos enrique and is under resources and income. Pt cannot DC to [facility] until precert is obtained. If precert is denied, pt can still admit to [facility] under Medicaid pending. expressed understanding and agrees with the DC plan. GORGE phoned Ya at [facility] to confirm above. Ya confirmed and received message from precert with request from therapy and MD notes from this date. GORGE sent requested clinicals to [facility] via [employer] [place]. SW will continue to follow. Plan: DC 03/15, pending precert to [facility] Addendum entered by Imani Traore 03/14/23 13:24: GORGE followed up with [facility]. Precert still pending. Insurance issued LCD 03/14. DC 03/15. [facility] to accept once precert outcome is given. Lissette notified this worker that the Medicaid application was submitted 03/13 after speaking to . SW to continue to follow. Original Note: Social Work Therapy notes sent to [facility] to start precert. Will continue to follow. NICKI Scott
--- NOTE | 2023-03-13 15:38 | PCM.PROGNOTE ---
Subjective Subjective Afebrile VSS Maintaining appropriate oxygen saturation on RA Oral intake is good for food and fluids The blood sugar record was reviewed. At bedtime blood sugar was 169 and the fasting today is 119. Blood sugar at lunch was 126. Discussed with nursing - no problems that need addressed Reviewed the PT/OT Medication list reviewed. Taking no more than 1 Oxycodone a day and this is generally in the AM prior to therapy. No complaints. Denies chest pain, shortness of breath, lightheadedness, nausea/vomiting, diarrhea/constipation, dysuria and calf tenderness. Objective Data Objective Data Vital Signs: Vital Signs Temp Pulse Resp BP Pulse Ox O2 Del Method O2 Flow Rate 97.9 F 63 18 114/60 97 Room Air 2 03/13/23 07:56 03/13/23 07:56 03/13/23 07:56 03/13/23 07:56 03/13/23 07:56 03/13/23 07:56 03/11/23 06:30 Oxygen Flow Rate (L/min) 2 Oxygen Delivery Method Room Air Weight: 227 lb 15.327 oz Body Mass Index (BMI) 33.7 Intake & Output: Intake and Output for Last 24 Hours 03/11/23 03/12/23 03/13/23 23:59 23:59 23:59 Intake Total 2420 / 2420 1500 / 1500 1490 / 1490 Output Total 3700 / 3700 2775 / 2775 900 / 900 Balance -1280 / -1280 -1275 / -1275 590 / 590 Lab / Micro Data 03/11/23 10:20 03/14/23 05:37 Labs: Laboratory Results - last 24 hr 03/12/23 15:59: POC Glucose 226 H 03/12/23 21:06: POC Glucose 169 H 03/13/23 06:08: POC Glucose 119 H 03/13/23 11:05: POC Glucose 126 H Micro: Microbiology 03/01/23 11:30 Urine, Catheterized Urine Culture - Final Yeast, not Tabitha albicans Physical Exam Const alert and no apparent distress Constitutional Narrative: He is participating in his ADL's more since nursing had a talk with him on Saturday. He is doing his own toileting now. General Appearance: cooperative HEENT normocephalic, head/scalp atraumatic and moist oral mucous membranes Eyes PERRL, EOMs intact bilaterally, conjunctivae normal and no scleral icterus Eyes Narrative: No mattering of the eyelashes. No DC from the eye. Neck no lymphadenopathy, No nodes and no carotid bruits General: trachea midline Chest Chest: symmetrical chest wall rise Resp normal respiratory effort and clear to auscultation bilaterally Resp Narrative: Not tachypneic and breathing is not labored. Effort and Inspection: Negative for tachypneic or labored Auscultation: diminished lung sounds Cardio no gallops Cardio Narrative: the rhythm sounds regular at times but, he has had AF this admission and he has also had atrial tachycardia with variable conduction. Since the HR is controlled it is sometimes difficult to tell if it is irregular or not. GI normal to inspection, nondistended, normoactive bowel sounds, non-tender and non-distended GI Narrative: no guarding with palpation Narrative: Wiggins catheter is present. There is no erythema around or discharge from the urethra. Urine in the tubing is pale and clear with occasional small blood clot. Bladder / Kidney Exam: catheter in place Extremity Negative for no calf tenderness Extremity Narrative: Some swelling in the left leg. Very little bruising. The incision is intact and dry with no DC. There is no kylah-incisional erythema. Sutures to be removed today. No edema of the L leg. General Extremity: Negative for edema Skin Skin Narrative: No rashes. He has ecchymosis of the knee and surrounding area due to recent surgery. General Skin Exam: no breakdown Rashes: no rashes Wound Narrative: The incision is intact and healing well. The incision is actually beautiful and there is no DC, no erythema, no swelling. There is a small opening in the skin of the lateral proximal calf that may be from tape.........no sign infection. Neuro oriented x3, CN's II-XII intact bilaterally and moves all extremities Neuro Narrative: perseverates and has some trouble with word finding and finishing his thoughts. Psych affect normal Psych Narrative: Cognitive dysfunction. Confabulating and then perseverates on what he made up. He is very frustrated over the course of the past year, the pain in his knee and the inability to walk. Repeatedly tells me that if this does not heal and he does not get a new Knee in 12 weeks he will want to know who to blame. Appearance: grossly normal and appropriate Attitude: calm, engaged and No agitated Assessment & Plan Assessment/Plan (1) Physical debility: (2) Infected prosthetic knee joint: (3) Aftercare following explantation of knee joint prosthesis: (4) History of CVA (cerebrovascular accident): (5) Diabetes mellitus, type 2: (6) Urine retention: (7) Wiggins catheter in place: (8) BPH (benign prostatic hyperplasia): QUALIFIERS: Lower urinary tract symptom presence: symptoms present Lower urinary tract symptom detail: urinary hesitancy Qualified Code(s): N40.1 - Benign prostatic hyperplasia with lower urinary tract symptoms; R39.11 - Hesitancy of micturition (9) CKD (chronic kidney disease), stage III: QUALIFIERS: Chronic kidney disease stage 3 subtype: stage 3b (GFR 30-44) Qualified Code(s): N18.32 - Chronic kidney disease, stage 3b (10) Normochromic normocytic anemia: (11) Persistent atrial fibrillation: (12) Hypomagnesemia: (13) Depression: QUALIFIERS: Depression Type: reactive depression Qualified Code(s): F32.9 - Major depressive disorder, single episode, unspecified (14) Cognitive dysfunction: (15) Left-sided weakness: (16) Chronic anticoagulation: (17) Non-ischemic cardiomyopathy: (18) Atrial tachycardia: (19) Candiduria: (20) WANDA (obstructive sleep apnea): (21) Seizure disorder: (22) Osteopenia determined by x-ray: PLAN: Likely related to disuse over the past year with limited weight bearing. PLAN: Plan 1. Continue therapy 2. will not be safe to go home at [facility] from rehab so will need to go to an SNF Charges/Coding Visit Charges Inpatient E&M: 95687 Subs Hosp L2
[2023-03-13 16:56] LABS: Bedside Glucose 212 mg/dL (74-106)
[2023-03-13 17:00] VITALS: BMI 33.7
[2023-03-13] MEDS: metFORMIN HCl 500 MG Tablet PO (17:08)
[2023-03-13] MEDS: Vancomycin IV 1,000 MG/200 ML BAG 200 MG IV (17:15)
[2023-03-13 17:19] LABS: Vancomycin, Trough Level 13.8 ug/mL (5.0-15.0)
--- NOTE | 2023-03-13 17:37 | PHA.PHARE_ITS ---
<Statement entered by Tash Gaitan, DO - 03/15/23 14:27> Pt seen & evaluated w/ROMA. I personally interviewed & exam the pt. I was involved in all aspects of pt's orders, interpretation of results & treatment Consult Antibiotic Management Pharmacy has been consulted to manage selected antiobiotic: Vancomycin Type of Intervention Type of Consult: Follow-up Suspected Infection Suspected Infection: Other Labs Labs: Sodium 138 mmol/L (136-145) 03/08/23 05:43 Potassium 4.0 mmol/L (3.5-5.1) 03/08/23 05:43 Chloride 106 mmol/L (98-107) 03/08/23 05:43 Carbon Dioxide 28.0 mmol/L (21.0-32.0) 03/08/23 05:43 Anion Gap 4 (5-15) L 03/08/23 05:43 BUN 39 mg/dL (7-18) H 03/08/23 05:43 Creatinine 1.94 mg/dL (0.70-1.30) H 03/08/23 05:43 Est GFR (MDRD) Af Amer 44 mL/min (>60) L 03/08/23 05:43 Est GFR (MDRD) Non-Af 36 mL/min (>60) L 03/08/23 05:43 BUN/Creatinine Ratio 20.1 RATIO (10-20) H 03/08/23 05:43 Glucose 127 mg/dL (74-106) H 03/08/23 05:43 Vancomycin Trough 13.8 ug/mL (5.0-15.0) 03/13/23 16:14 Random Vancomycin 18.4 ug/mL (0.0-15.0) H 03/09/23 14:15 Microbiology Microbiology: Microbiology 03/01/23 11:30 Urine, Catheterized Urine Culture - Final Yeast, not Tabitha albicans Goal Trough Goal Trough: 15-20 mcg/mL Pharmacy Plan for Drug Dosing Pharmacy Plan for Drug Dosing: VANCOMYCIN LEVEL RECEIVED Current Vancomycin Dose: 1000mg Q48H Number of Doses Received: 1000mg x2 Vancomycin Level: 13.8 Hours Since Last Dose: 47.75 Renal Function: sCr 1.94 (03/08/23) Vancomycin Plan/Comments: Increase Vancomycin dosing regimen to 1250mg Q48H, to start at next scheduled dose as 1000mg given at 1715 today Pending Level: Vancomycin trough @ 1630 03/17/23 Pharmacy Service will continue to monitor and adjust dosing as required. Follow-Up Labs Follow-Up Labs: Trough: Vancomycin Date/Time Labs Ordered Labs to be done on [date and time ordered]: 16:30 03/17/23
[2023-03-13 19:25] VITALS: BP 107/71; PULSE 87; RESP 18; TEMP 36.6; O2SAT 98
[2023-03-13] MEDS: Atorvastatin Calcium 80 MG Tablet PO (21:11)
[2023-03-13] MEDS: Senna/Docusate Sodium 1 Tablet 2 TABLET PO (21:11)
[2023-03-13] MEDS: Insulin Glargine-YFGN 100 UNIT/ML Pen 30 UNIT SC (21:14)
[2023-03-13 22:19] LABS: Bedside Glucose 171 mg/dL (74-106)
[2023-03-14 06:00] VITALS: BMI 33.6
[2023-03-14 06:24] LABS: Anion Gap 8 (5-15); BUN 49 mg/dL (7-18); BUN/Creat Ratio 19.1 RATIO (10-20); Calcium,Total 9.4 mg/dL (8.5-10.1); Chloride 102 mmol/L (98-107); Creatinine, Serum 2.56 mg/dL (0.70-1.30); EST Glomerular Filtration Rate 26 mL/min (>60); Est Glom Filt Rate - Afr Amer 32 mL/min (>60); Estimated Creatinine Clearance 24.86 ml/min; Glucose 124 mg/dL (74-106); Potassium 4.1 mmol/L (3.5-5.1); Sodium Level 136 mmol/L (136-145)
[2023-03-14 06:36] LABS: Bedside Glucose 115 mg/dL (74-106)
--- NOTE | 2023-03-14 06:58 | NURSING ---
10 ml NS removed from balloon Wiggins discontinued. pt tolerated well. will monitor pt.
[2023-03-14 08:05] VITALS: BP 113/67; PULSE 88; RESP 18; TEMP 36.8; O2SAT 100
[2023-03-14] MEDS: Sertraline 50 MG Tablet 100 MG PO (09:08)
[2023-03-14] MEDS: Aspirin 81 MG TAB.CHEW PO (09:08)
[2023-03-14] MEDS: APIXABAN 5 MG TABLET PO ×2 (09:12→21:43)
[2023-03-14] MEDS: Cholecalciferol (VIT D3) 25 MCG TABLET (1,000 UNITS) 50 MCG PO (09:12)
[2023-03-14] MEDS: Calcium Carbonate 500 MG Tablet PO ×2 (09:12→17:51)
[2023-03-14] MEDS: Magnesium Chloride 64 MG Delay Rel.Tablet 128 MG PO (09:13)
[2023-03-14] MEDS: Tamsulosin HCl 0.4 MG Capsule PO ×2 (09:13→21:42)
[2023-03-14] MEDS: Lisinopril 10 MG Tablet PO (09:13)
[2023-03-14] MEDS: Furosemide 40 MG Tablet PO ×2 (09:13→17:51)
[2023-03-14] MEDS: Zonisamide 50 MG Capsule PO ×2 (09:13→21:42)
[2023-03-14] MEDS: Carvedilol 6.25 MG Tablet PO ×2 (09:13→17:51)
[2023-03-14] MEDS: Pantoprazole Sodium 20 MG Tablet 40 MG PO (09:13)
[2023-03-14] MEDS: Amiodarone 200 MG Tablet PO (09:13)
[2023-03-14] MEDS: busPIRone 15 MG TABLET 7.5 MG PO ×2 (09:13→21:43)
[2023-03-14] MEDS: Multivitamins,Therapeutic Tablet 1 TABLET PO (09:13)
[2023-03-14] MEDS: Fenofibrate 48 MG Tablet PO (09:13)
[2023-03-14] MEDS: Empagliflozin 10 MG Tablet PO (09:13)
[2023-03-14] MEDS: Glucerna Shake 120 ML LIQUID PO ×3 (09:14→17:51)
[2023-03-14] MEDS: Insulin Lispro 100 UNIT/ML INSULN.PEN SC ×4 (09:14→21:45)
[2023-03-14] MEDS: amLODIPine 10 MG Tablet PO (09:15)
[2023-03-14] MEDS: 0.9% Saline Lock 10 ML Syringe IV (09:16)
[2023-03-14 11:37] LABS: Bedside Glucose 156 mg/dL (74-106)
[2023-03-14] MEDS: Ascorbic Acid 500 MG Tablet 1000 MG PO (12:04)
[2023-03-14] MEDS: Ferrous Sulfate 325 MG Tablet PO (12:04)
--- NOTE | 2023-03-14 13:19 | NURSING ---
Pt had PVR for 636 ml. Straight cath 500 ml
[2023-03-14 15:47] VITALS: BMI 33.6
[2023-03-14 17:13] LABS: Bedside Glucose 189 mg/dL (74-106)
[2023-03-14] MEDS: metFORMIN HCl 500 MG Tablet PO (17:51)
[2023-03-14 19:22] VITALS: BP 114/65; PULSE 87; RESP 15; TEMP 36.8; O2SAT 98
[2023-03-14 20:24] LABS: Bedside Glucose 199 mg/dL (74-106)
[2023-03-14] MEDS: Insulin Glargine-YFGN 100 UNIT/ML Pen 30 UNIT SC (21:42)
[2023-03-14] MEDS: Atorvastatin Calcium 80 MG Tablet PO (21:42)
[2023-03-14] MEDS: Acetaminophen 500 MG Tablet 1000 MG PO (21:54)
[2023-03-14 22:00] VITALS: PULSE 87; RESP 15; O2SAT 94
[2023-03-14 23:58] VITALS: BMI 33.6
[2023-03-15 05:45] LABS: Absolute Lymphocyte Count 0.75 X10^3/uL (0.83-4.51); Absolute Neutrophil Count 4.2 X10^3/uL (2.0-7.7); Basophil% 1.5 % (0-1); Eosinophil# 0.55 X10^3/uL; Eosinophils% 8.3 % (0-5); Hematocrit 29.1 % (40-54); Hemoglobin 9.3 g/dL (13.0-16.5); Lymphocyte # 0.75 X10^3/ul (0.83-4.51); Lymphocyte % 11.3 % (19-41); Mean Corpuscular Hgb 29.9 pg (27.0-32.0); Mean Corpuscular Volume 93.6 fL (80-94); Mean Platelet Vol. 11.3 fl (6.2-12.0); Monocyte# 1.01 X10^3/uL; Monocyte% 15.2 % (0-10); NRBC Flagged by Analyzer 0 % (0-5); Neutrophil % 63.2 % (47-70); Platelet Count 255 K/mm3 (150-450); RBC Distribution Width CV 12.2 % (11.6-14.6); RBC Distribution Width SD 41.2 fl (35.1-43.9); Red Blood Count 3.11 M/mm3 (4.6-6.2); White Blood Count 6.6 K/mm3 (4.4-11.0)
[2023-03-15 06:27] LABS: Anion Gap 6 (5-15); BUN 49 mg/dL (7-18); BUN/Creat Ratio 18.7 RATIO (10-20); Calcium,Total 9.2 mg/dL (8.5-10.1); Chloride 104 mmol/L (98-107); Creatinine, Serum 2.62 mg/dL (0.70-1.30); EST Glomerular Filtration Rate 26 mL/min (>60); Est Glom Filt Rate - Afr Amer 31 mL/min (>60); Estimated Creatinine Clearance 24.29 ml/min; Glucose 92 mg/dL (74-106); Potassium 4.1 mmol/L (3.5-5.1); Sodium Level 139 mmol/L (136-145)
[2023-03-15 06:56] LABS: Erythrocyte Sedimentation Rate 50 mm/hr (0-20)
[2023-03-15 07:17] LABS: Bedside Glucose 86 mg/dL (74-106)
[2023-03-15] MEDS: Aspirin 81 MG TAB.CHEW PO (08:05)
[2023-03-15] MEDS: Carvedilol 6.25 MG Tablet PO ×2 (08:06→17:00)
[2023-03-15] MEDS: Glucerna Shake 120 ML LIQUID PO ×3 (08:06→17:00)
[2023-03-15] MEDS: Multivitamins,Therapeutic Tablet 1 TABLET PO (08:07)
[2023-03-15] MEDS: Calcium Carbonate 500 MG Tablet PO ×2 (08:09→17:01)
[2023-03-15] MEDS: Insulin Lispro 100 UNIT/ML INSULN.PEN SC ×3 (08:10→17:00)
[2023-03-15] MEDS: busPIRone 15 MG TABLET PO (08:12)
[2023-03-15] MEDS: Amiodarone 200 MG Tablet PO (08:13)
[2023-03-15] MEDS: APIXABAN 5 MG TABLET PO ×2 (08:13→21:33)
[2023-03-15] MEDS: Empagliflozin 10 MG Tablet PO (08:14)
[2023-03-15] MEDS: Tamsulosin HCl 0.4 MG Capsule PO ×2 (08:14→21:33)
[2023-03-15] MEDS: Furosemide 40 MG Tablet PO ×2 (08:14→17:01)
[2023-03-15] MEDS: Magnesium Chloride 64 MG Delay Rel.Tablet 128 MG PO (08:14)
[2023-03-15] MEDS: Pantoprazole Sodium 20 MG Tablet 40 MG PO (08:15)
[2023-03-15] MEDS: Fenofibrate 48 MG Tablet PO (08:15)
[2023-03-15] MEDS: amLODIPine 10 MG Tablet PO (08:15)
[2023-03-15] MEDS: Senna/Docusate Sodium 1 Tablet 2 TABLET PO (08:15)
[2023-03-15] MEDS: Zonisamide 50 MG Capsule PO ×2 (08:16→21:32)
[2023-03-15] MEDS: Sertraline 50 MG Tablet 100 MG PO (08:16)
[2023-03-15] MEDS: Lisinopril 10 MG Tablet PO (08:16)
[2023-03-15] MEDS: Cholecalciferol (VIT D3) 25 MCG TABLET (1,000 UNITS) 50 MCG PO (08:16)
[2023-03-15 08:30] VITALS: BP 107/50; PULSE 82; RESP 17; TEMP 36.6; O2SAT 99
[2023-03-15] MEDS: 0.9% Saline Lock 10 ML Syringe IV (09:58)
--- NOTE | 2023-03-15 10:45 | PCM.TXEXTCAR ---
Diet Diet Order/Speech Therapy: 03/01/23 13:36 Diet: Cardiac: Calorie-Controlled Is pt able to select menu?: Yes How many daily calories?: 1800 calorie Routine Orders/Code Status Enema Type: Fleetz Enema Frequency: Daily PRN Suppository Type: Dulcolax 10mg Suppository Frequency: Daily PRN O2 Liters per Minute: 1-2 O2 Frequency: PRN Keep PO Greater than or Equal to (%): 90 Routine Lab Work: - (CBC with diff, BMP, ESR and CRP weekly on Fridays until 04/05/23 when the antibiotics finish. Iron, TIBC, ferritin on 03/22/23.) Code Status: Full Code Wound(s) Right knee: Wound Type: Surgical Incision (R knee) Back of right thigh: Wound Type: sheering open area Therapies Weight Bearing: Toe-touch weight bearing (RLE) Physical Therapy: Eval and Treat Occupational Therapy: Eval and Treat Speech Therapy: Eval and Treat Problem/Diagnosis (1) Physical debility: Status: Acute Code(s): R53.81 - Other malaise Comment: Due to infected R knee prosthesis with recent explant and placement of a antibiotic spacer. (2) Infected prosthetic knee joint: Status: Acute Code(s): T84.59XA - Infection and inflammatory reaction due to other internal joint prosthesis, initial encounter; Z96.659 - Presence of unspecified artificial knee joint Plan: Continue ceftriaxone and vancomycin with a stop date of April 05. (3) Aftercare following explantation of knee joint prosthesis: Status: Acute Code(s): Z47.33 - Aftercare following explantation of knee joint prosthesis (4) History of CVA (cerebrovascular accident): Status: Acute Code(s): Z86.73 - Personal history of transient ischemic attack (TIA), and cerebral infarction without residual deficits Comment: CVA in 2018 and in 2022 with many TIA's (5) Diabetes mellitus, type 2: Status: Acute Code(s): E11.9 - Type 2 diabetes mellitus without complications (6) Urine retention: Status: Acute Code(s): R33.9 - Retention of urine, unspecified Comment: Failed 2 voiding trials and is on Flomax 0.4 mg BID. Adding Proscar 5 mg daily at DC. Will follow up with Dr. Canchola. (7) Wiggins catheter in place: Status: Acute Code(s): Z97.8 - Presence of other specified devices (8) BPH (benign prostatic hyperplasia): Status: Acute Code(s): N40.0 - Benign prostatic hyperplasia without lower urinary tract symptoms (9) CKD (chronic kidney disease), stage III: Status: Chronic Code(s): N18.3 - Chronic kidney disease, stage 3 (moderate) Comment: stage 3b (10) Normochromic normocytic anemia: Status: Acute Code(s): D64.9 - Anemia, unspecified Comment: HGB is stable but, not improving. It is normochromic normocytic anemia....suspect due to chronic renal disease......has had N/N anemia for the past few years. (11) Persistent atrial fibrillation: Status: Acute Code(s): I48.19 - Other persistent atrial fibrillation (12) Hypomagnesemia: Status: Acute Code(s): E83.42 - Hypomagnesemia (13) Depression: Status: Acute Code(s): F32.A - Depression, unspecified Comment: predated the stroke (14) Cognitive dysfunction: Status: Acute Code(s): F09 - Unspecified mental disorder due to known physiological condition (15) Left-sided weakness: Status: Acute Code(s): R53.1 - Weakness (16) Chronic anticoagulation: Status: Acute Code(s): Z79.01 - [facility] (current) use of 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s Plan: Continue apixaban 5 mg p.o. twice daily (17) Non-ischemic cardiomyopathy: Status: Acute Code(s): I42.8 - Other cardiomyopathies Comment: EF is 45%, down from 50% in January 2020. ECHO in January of 2023 with a 60% EF with no regional wall motion abnormalities. (18) Atrial tachycardia: Status: Acute Code(s): I47.1 - Supraventricular tachycardia Comment: with variable conduction. (19) Candiduria: Status: Acute Code(s): B37.49 - Other urogenital candidiasis Comment: Treated with Diflucan and resolved. (20) WANDA (obstructive sleep apnea): Status: Deleted Code(s): G47.33 - Obstructive sleep apnea (adult) (pediatric) (21) Seizure disorder: Status: Acute Code(s): G40.909 - Epilepsy, unspecified, not intractable, without status epilepticus (22) Osteopenia determined by x-ray: Status: Acute Code(s): M85.80 - Other specified disorders of bone density and structure, unspecified site Plan: Likely related to disuse over the past year with limited weight bearing. Also the PTH last year was high normal. Started on Fosamax and is tolerating without SE. Should have a BMD study post DC from rehab. Plan 1. DC to [facility] when the pre-cert is obtained. Allergies/Procedures Done in Hospital Allergies rofecoxib Allergy (Verified 01/11/23 14:27) Hives Procedures: None Type of Care/Length of Stay Estimated LOS: More Than 30 Days Type of Care Needed: Skilled Rehab Potential: Good Prognosis: Fair Additional Orders/Day of Discharge Additional Orders: Check orthostatic VS in the AM and recheck in 1 week. H&P will serve as current which was dated: 02/28/23 Day of Discharge: 03/15/23 Dietary and Speech Recommendations Dietitian Recommendations/Changes: Will continue Cardiac/ 1800 marshall CHO Control to better meet est nutritional needs Please consult if changes in pt nutritional status and/or diet education desired. Follow Up Care Please follow up with your Primary Care Physician in: following DC from SNF - Dr. Jarvis Please Follow Up With: Dr. Arias When: in 2-3 weeks Please Follow Up With: Aj Canchola MD When: Within the next 2 weeks for a voiding trial. Please Follow Up With: Dr. Glass When: as previously scheduled Please Follow Up With: Anuja Sanchez MD When: As previously scheduled, sooner if creat increases above 3. 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 Alcides will need to follow up with Dr. Arias, orthopedic surgeon, in 2-[address] Arias did the explant and antibiotic spacer but, the plan is to have a new R TKA after the antibiotics have completed. 2. Alcides is still retaining urine and we have done 2 voiding trials. Proscar was added to Flomax on 7/7/23. Will follow up with Dr. Canchola in 2 weeks for a voiding trial.......needs an appt scheduled. 3. Needs weekly labs while on Ceftriaxone and Vancomycin. CBC with diff, BMP, ESR and CRP. 4. Creat was increased at 2.62 on the day of DC. Baseline over the past 18 months has ranged from 2.04 to 2.95. The last Vanco trough was 13.8 on 03/13/23. Pharmacist should follow the Vanco troughs and adjust as needed. 5. He needs to be reminded regularly to increase his fluid intake. 6. HGB is stable and ranges from 9.0 - 9.5. Will check iron studies with the next weekly lab work which should be 03/22/23. He has chronic N/N anemia more likely than not due to CRF. Discharge Orders/Prescriptions Prescriptions: New fenofibrate nanocrystallized 48 mg Tablet 48 mg PO DAILY Qty: 1 0RF sodium chloride 0.9 % (flush) [BD PosiFlush Normal Saline 0.9] Syringe 10 ml IV PRN PRN (Reason: Saline Flush) Qty: 5 0RF alendronate 70 mg Tablet 70 mg PO Q7D@0700 Qty: 1 0RF Rx Instructions: Last dose given 03/12/23 bisacodyl 10 mg Suppository 10 mg MN .PRN X 1 PRN (Reason: Constipation) Qty: 1 0RF calcium carbonate 200 mg calcium (500 mg) Tablet,Chewable 500 mg PO BIDCM Qty: 1 0RF buspirone 15 mg Tablet 15 mg PO DAILY Qty: 1 0RF Jardiance 10 mg Tablet 10 mg PO DAILY Qty: 1 0RF finasteride 5 mg Tablet 5 mg PO DAILY Qty: 1 0RF Glucerna 1.2 Marshall 0.06-1.2 gram-kcal/mL Liquid 120 ml PO TIDCM Qty: 1000 0RF insulin lispro [Humalog KwikPen Insulin] 100 unit/mL Insulin Pen 3 unit subcut TIDAC Qty: 1 0RF Protocol: 4. Sliding Scale Insulin High-Med Dosing Condition: 150-199 mg/dl = 2 units Condition: 200-259 mg/dl = 4 units Condition: 260-324 mg/dl = 6 units Condition: 325-374 mg/dl = 8 units Condition: 375-409 mg/dl = 10 units Condition: 410-449 mg/dl = 11 units Condition: Greater than 449 call physician Protocol Text: - Use for Total Daily Dose of Insulin 56-80 units - Patient who are insulin resistant or septic HIGH MEDIUM DOSING ALGORITHM magnesium hydroxide 400 mg/5 mL Suspension 30 ml PO .PRN X 1 PRN (Reason: Constipation) Qty: 30 0RF sennosides-docusate sodium [Stool Softener-Stimulant Laxat] 8.6-50 mg Tablet 2 tab PO BID Qty: 1 0RF cholecalciferol (vitamin D3) 25 mcg (1,000 unit) Tablet 50 mcg PO DAILY Qty: 1 0RF vancomycin in 0.9 % sodium chl 1 gram/200 mL piggyback 1 g IV Q48H Rx Instructions: Pharmacist should control the dosing. We have been giving 1 GM Q 48H. Vanco trough is ordered for 16:30 today to adjust. Last dose should be 04/05/23 Continued multivitamin [Daily Multi-Vitamin] Tablet 1 tab PO DAILY tamsulosin 0.4 mg capsule 0.4 mg PO BID lisinopril 10 mg tablet 10 mg PO DAILY amlodipine 10 mg tablet 10 mg PO DAILY Hold Instructions: Resume on 12/19/22. Please discuss with your primary care physician prior to resuming furosemide 40 mg tablet 40 mg PO BID atorvastatin 80 mg Tablet 80 mg PO QHS buspirone 15 mg Tablet 7.5 mg PO BID Rx Instructions: 1/2 TAB BID FOR 2 WEEKS THEN 1 TAB BID aspirin 81 mg Capsule 81 mg PO DAILY omeprazole 20 mg capsule,delayed release(DR/EC) 40 mg PO DAILY zonisamide [Zonegran] 25 mg capsule 50 mg PO BID sertraline 50 mg tablet 100 mg PO DAILY insulin glargine-yfgn 100 unit/mL (3 mL) Insulin Pen 25 unit SUBCUT QPM amiodarone 200 mg tablet 200 mg PO DAILY carvedilol [Coreg] 3.125 mg tablet 3.125 mg PO BID ascorbic acid (vitamin C) 500 mg tablet 1,000 mg PO LUNCH Mag 64 64 mg tablet,delayed release (DR/EC) 128 mg PO DAILY ceftriaxone 2 gram Recon Soln 2 g IV DAILY Qty: 20 0RF ferrous sulfate 325 mg (65 mg iron) tablet 325 mg PO DAILY Qty: 30 0RF Rx Instructions: give this at noon daily with the ferrous sulfate. oxycodone 5 mg Tablet 5 - 10 mg PO Q6H PRN (Reason: pain) 7 Days Qty: 21 0RF Rx Instructions: 5 mg for pain 1-4 and 10 mg for pain 5-10 apixaban 5 mg tablet 5 mg PO BID Qty: 1 0RF Changed acetaminophen 500 mg tablet 1,000 mg PO Q8H PRN PRN (Reason: Pain 1-10) Qty: 1 0RF Discontinued insulin aspart U-100 100 unit/mL (3 mL) insulin pen See Rx Instructions .ROUTE .COMPLEX 30 Days Qty: 15 0RF Rx Instructions: Please use sliding scale provided dextrose 40 % in water (D40W) 40 % Parenteral Solution 15 ea IV PRN PRN (Reason: Low blood sugar) vancomycin 250 mg Recon Soln 1.25 g IV Q24H fenofibrate 54 mg tablet 54 mg PO DAILY Referrals / Follow Up: Nicolas Glass [Other] (Ortho) Lester Jarvis MD [Primary Care Provider] - Aj Canchola MD [Med Staff - Active Staff] - Disposition Disposition (needs filled in before D/C Order can be placed): [facility] (8) BPH (benign prostatic hyperplasia) Qualifiers: Lower urinary tract symptom detail: urinary hesitancy Lower urinary tract symptom presence: symptoms present Qualified Code(s): N40.1 - Benign prostatic hyperplasia with lower urinary tract symptoms; R39.11 - Hesitancy of micturition (9) CKD (chronic kidney disease), stage III Qualifiers: Chronic kidney disease stage 3 subtype: stage 3b (GFR 30-44) Qualified Code(s): N18.32 - Chronic kidney disease, stage 3b (13) Depression Qualifiers: Depression Type: reactive depression Qualified Code(s): F32.9 - Major depressive disorder, single episode, unspecified
--- NOTE | 2023-03-15 11:48 | CASEMGMT ---
Addendum entered by Imani Traore 03/15/23 16:26: [facility] still has not received precert yet. DC and TX summaries completed. 7000 completed. All paperwork sent to [facility]. SW provided verbal hand off to [employer] and secure email hand off to both ED SWs. SW provided [facility] with nurse's station phone number in case precert is obtained after business hours. Original Note: Social Work SW followed up with [facility] and no precert obtained at this time. 7000 started. Pt will need w/c transport. Will continue to follow. NICKI Scott
[2023-03-15] MEDS: Ferrous Sulfate 325 MG Tablet PO (11:55)
[2023-03-15] MEDS: Ascorbic Acid 500 MG Tablet 1000 MG PO (11:55)
[2023-03-15 12:07] LABS: Bedside Glucose 136 mg/dL (74-106)
--- NOTE | 2023-03-15 12:38 | DS.PCM_ITS ---
Providers Date of Admission: 02/28/23 Date of Discharge: 03/15/23 Primary Care Physician: Dr. Lester Jarvis MD none Reason For Visit: RIGHT KNEE INFECTION Diagnosis Discharge Diagnosis (1) Physical debility: Status: Acute Code(s): R53.81 - Other malaise (2) Infected prosthetic knee joint: Status: Acute Code(s): T84.59XA - Infection and inflammatory reaction due to other internal joint prosthesis, initial encounter; Z96.659 - Presence of unspecified artificial knee joint Plan: Continue ceftriaxone and vancomycin with a stop date of April 05. (3) Aftercare following explantation of knee joint prosthesis: Status: Acute Code(s): Z47.33 - Aftercare following explantation of knee joint prosthesis (4) History of CVA (cerebrovascular accident): Status: Acute Code(s): Z86.73 - Personal history of transient ischemic attack (TIA), and cerebral infarction without residual deficits (5) Diabetes mellitus, type 2: Status: Acute Code(s): E11.9 - Type 2 diabetes mellitus without complications (6) Urine retention: Status: Acute Code(s): R33.9 - Retention of urine, unspecified (7) Wiggins catheter in place: Status: Acute Code(s): Z97.8 - Presence of other specified devices (8) BPH (benign prostatic hyperplasia): Status: Acute Code(s): N40.0 - Benign prostatic hyperplasia without lower urinary tract symptoms Qualifiers: Lower urinary tract symptom detail: urinary hesitancy Lower urinary tract symptom presence: symptoms present Qualified Code(s): N40.1 - Benign prostatic hyperplasia with lower urinary tract symptoms; R39.11 - Hesitancy of micturition (9) CKD (chronic kidney disease), stage III: Status: Chronic Code(s): N18.3 - Chronic kidney disease, stage 3 (moderate) Qualifiers: Chronic kidney disease stage 3 subtype: stage 3b (GFR 30-44) Qualified Code(s): N18.32 - Chronic kidney disease, stage 3b (10) Normochromic normocytic anemia: Status: Acute Code(s): D64.9 - Anemia, unspecified (11) Persistent atrial fibrillation: Status: Acute Code(s): I48.19 - Other persistent atrial fibrillation (12) Hypomagnesemia: Status: Acute Code(s): E83.42 - Hypomagnesemia (13) Depression: Status: Acute Code(s): F32.A - Depression, unspecified Qualifiers: Depression Type: reactive depression Qualified Code(s): F32.9 - Major depressive disorder, single episode, unspecified (14) Cognitive dysfunction: Status: Acute Code(s): F09 - Unspecified mental disorder due to known physiological condition (15) Left-sided weakness: Status: Acute Code(s): R53.1 - Weakness (16) Chronic anticoagulation: Status: Acute Code(s): 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 twice daily (17) Non-ischemic cardiomyopathy: Status: Acute Code(s): I42.8 - Other cardiomyopathies (18) Atrial tachycardia: Status: Acute Code(s): I47.1 - Supraventricular tachycardia (19) Candiduria: Status: Acute Code(s): B37.49 - Other urogenital candidiasis (20) WANDA (obstructive sleep apnea): Status: Deleted Code(s): G47.33 - Obstructive sleep apnea (adult) (pediatric) (21) Seizure disorder: Status: Acute Code(s): G40.909 - Epilepsy, unspecified, not intractable, without status epilepticus (22) Osteopenia determined by x-ray: Status: Acute Code(s): M85.80 - Other specified disorders of bone density and structure, unspecified site Plan: Likely related to disuse over the past year with limited weight bearing. Also the PTH last year was high normal. Started on Fosamax and is tolerating without SE. Should have a BMD study post DC from rehab. Plan 1. DC to [facility] when the pre-cert is obtained. 2. Weekly CBC with differential, BMP, ESR and CRP while on IV antibiotics 3. Check a serum iron, TIBC and ferritin in 1 week 4. Follow-up with Dr. Arias (orthopedic surgeon) in 2-3 weeks. 5. Follow-up with Dr. Sanchez as previously scheduled, sooner if the creatinine increases above 3 6. Follow-up with Dr. Coleman (neurology) as previously scheduled. 7. Follow-up with his PCP, Dr. Jarvis, following discharge from correction. 8. He is going to follow up with 1 of the orthopedic surgeons from [facility] (he thinks Dr. Lockwood) following completion of the antibiotics for R TKA. 9. Continue ceftriaxone and vancomycin and DC after the last dose on 04/05/2023. Medications at Discharge Home Medications atorvastatin 80 mg tablet 80 mg PO QHS CHOLESTEROL 01/06/22 multivitamin (Daily Multi-Vitamin tablet) 1 tab PO DAILY Supplement 02/12/22 tamsulosin 0.4 mg capsule 0.4 mg PO BID Urine retention 02/12/22 aspirin 81 mg capsule 81 mg PO DAILY Heart health 02/25/22 buspirone 15 mg tablet 7.5 mg PO BID Mood 02/25/22 omeprazole 20 mg capsule,delayed release 40 mg PO DAILY GERD 02/25/22 zonisamide 25 mg capsule (Zonegran) 50 mg PO BID Ask 05/09/22 amlodipine 10 mg tablet 10 mg PO DAILY BP 07/03/22 lisinopril 10 mg tablet 10 mg PO DAILY BP 11/07/22 sertraline 50 mg tablet 100 mg PO DAILY Mood 12/07/22 furosemide 40 mg tablet 40 mg PO BID Fluid retention 01/11/23 amiodarone 200 mg tablet 200 mg PO DAILY BP 02/28/23 ascorbic acid (vitamin C) 500 mg tablet 1,000 mg PO LUNCH Supplement 02/28/23 carvedilol 3.125 mg tablet (Coreg) 3.125 mg PO BID BP 02/28/23 insulin glargine-yfgn 100 unit/mL (3 mL) subcutaneous pen 25 unit subcut QPM Blood sugar 02/28/23 magnesium chloride 64 mg (magnesium chloride) tablet,delayed release (Mag 64) 128 mg PO DAILY Supplement 02/28/23 acetaminophen 500 mg tablet 1,000 mg (2 x 500 mg) PO Q8H PRN PRN Pain 1-10 #1 TAB 03/15/23 alendronate 70 mg tablet 70 mg PO Q7D@0700 #1 TAB 03/15/23 apixaban 5 mg tablet 5 mg PO BID #1 TAB 03/15/23 bisacodyl 10 mg rectal suppository 10 mg NH .PRN X 1 PRN Constipation #1 ea 03/15/23 buspirone 15 mg tablet 15 mg PO DAILY #1 TAB 03/15/23 calcium carbonate 200 mg calcium (500 mg) chewable tablet 500 mg (2.5 x 200 mg calcium (500 mg)) PO BIDCM #1 TAB 03/15/23 ceftriaxone 2 gram intravenous solution 2 g IV DAILY Antibiotic #20 doses cholecalciferol (vitamin D3) 25 mcg (1,000 unit) tablet 50 mcg (2 x 25 mcg (1,000 unit)) PO DAILY #1 TAB 03/15/23 empagliflozin 10 mg tablet (Jardiance) 10 mg PO DAILY #1 TAB 03/15/23 fenofibrate nanocrystallized 48 mg tablet 48 mg PO DAILY #1 TAB 03/15/23 ferrous sulfate 325 mg (65 mg iron) tablet 325 mg PO DAILY supplement #30 tabs 03/15/23 finasteride 5 mg tablet 5 mg PO DAILY #1 TAB 03/15/23 insulin lispro 100 unit/mL subcutaneous pen (Humalog KwikPen (U-100) Insulin) 3 unit subcut TIDAC #1 mL 03/15/23 magnesium hydroxide 400 mg/5 mL oral suspension 30 ml PO .PRN X 1 PRN Constipa tion #30 mL 03/15/23 nutrition tx glu intol,lac-free,soy-fiber 0.06 gram-1.2 kcal/mL liquid (Glucerna 1.2 David) 120 ml PO TIDCM #1,000 mL 03/15/23 oxycodone 5 mg tablet 5 - 10 mg (1 - 2 x 5 mg) PO Q6H PRN pain 1 week #21 tabs 03/15/23 sennosides 8.6 mg-docusate sodium 50 mg tablet (Stool Softener-Stimulant Laxative) 2 tab PO BID #1 TAB 03/15/23 sodium chloride 0.9 % (flush) (BD PosiFlush Normal Saline 0.9 % injection syringe) 10 ml IV PRN PRN Saline Flush #5 mL 03/15/23 vancomycin 1 gram/200 mL in 0.9 % sod. chloride intravenous piggyback 1 g (200 mL) IV Q48H 03/15/23 Hospital Course Summary of Care Provided Minutes Spent on Discharge: 45 Hospital Course: VIVI SAINI, is a 73 YO M well known to me from previous admission to acute rehab in December of 2021 for stroke. PMH is significant for chronic atrial fibrillation, chronic anticoagulation with apixaban, diabetes mellitus type 2, systolic and diastolic congestive heart failure, hypertension, BPH, placement of a spinal stimulator for chronic back pain, GERD, hyperlipidemia, left bundle branch block, chronic renal failure stage IIIb, history of stroke in December 2017 and in December 2021, history of TIA's, morbid obesity, history of coronary artery disease with NSTEMI on 02/02/2020, nonischemic cardiomyopathy, osteoarthritis and secondary pulmonary hypertension. He had an infected R total knee prosthesis and was being cared for by Dr. Arias. On 02/22/23 he underwent R knee removal of hardware and placement of an antibiotic spacer by Dr. Arias. He will be on Ceftriaxone and Vancomycin IV until April 05. He has a tunnelled central line for administration of the antibiotics. He received 2 units of PRBC's at the previous hospital for anemia. While at the previous hospital he was seen by PT/OT and acute inpt rehab was recommended at [facility]. He was transferred to the acute inpt rehab unit at [facility] on 02/28/23 for 3 hours of therapy daily to restore function/independence at or near his level prior to the surgery. He was sent to us with a Wiggins catheter that was placed for urine retention. He has been on Flomax 0.4 mg BID. Lab at admission showed a normal white blood cell count and hemoglobin of 8.4. Platelets were within normal limits. Sodium was 140 and the potassium was 4.6. The BUN was 49 and the creatinine was 1.77. 1.77 is actually lower than his baseline over the past 18 months which has ranged from 2.04-2.95. Phosphorus and magnesium were within normal limits. Urine culture had 25-50 RBCs and 0-5 WBCs per high-power field. Urine culture had yeast, not Tabitha albicans. He was treated with Diflucan for funguria and the soreness and erythema at the tip of the penis resolved. Pharmacy was consulted for management of the Vancomycin dosing. He had weekly ESR, CRP, CBC with diff and BMP. ESR was 40 when first checked and at the time of discharge is 50. CRP initially was 17.2 and at discharge is 16.2. White blood cell count has consistently been within normal limits. Hemoglobin is stable between 9 and 9.5. Creatinine has increased from 1.77 at admission to 2.62 at discharge. 2.62 is within his baseline. He follows with Dr. Sanchez for chronic renal failure. Pharmacy has had to adjust the vancomycin dosing due to increased creatinine. At the time of discharge he is taking 1 g vancomycin IV every 48 hours. There is a trough ordered for 1630 on the day of discharge. The vancomycin trough on 03/13/2023 was 13.5. Alcides has had no diarrhea and no thrush or painful swallowing during his admission to rehab. VS have been stable. HGBA1C is 6.6. He has had no hypoglycemia and at the time of DC he is on glargine 25 units SQ nightly, lispro 3 units 3 times daily AC and Jardiance 10 mg daily to decrease the risk of future cardiovascular events. He has had no metabolic acidosis with the initiation of Jardiance. Alcides did progress with therapy however, he is not ready to return home from rehab. His is unable to provide the level of assistance he needs. We removed the sutures from the knee incision while he was pn rehab and the in cision at the time of discharge looks excellent. The margins are well coapted and there is no kylah-incisional erythema. There is no DC from the incision. His pain is well managed and he is sleeping well at night and has a good appetite. He does not drink enough fluid and we are constantly reminding him to increase his fluid intake. He is on Lasix BID for CRF. We made 2 attempts to DC the Wiggins however, he failed both voiding trials and we are discharging him with a Wiggins catheter that was placed on 03/15/23. The urine is clear but, occasionally will have a small clot, I suspect due to traction on the Wiggins. I started him on Proscar 5 mg daily at the time of DC and he is going to follow up with Dr. Canchola in the next few weeks for a voiding trial. At the time of discharge Alcides is independent with eating and is supervision/set up for grooming. He still requires total assistance for lower body dressing but is requiring only min assist with upper body dressing and tub/shower transfer. He is able to maneuver the WC for 75' at SBA. Progress with the wheelchair is slow and he struggles with turns and he does not use his left lower extremity to assist his arms. He is able to go from sitting to standing from various surfaces at min assist/contact-guard assist. He was also seen by speech therapy while on rehab and a BCAT was administered at admission. He scored only 35/50 indicating significant cognitive dysfunction. He continues to have problems with attention, numerical processing and mental manipulation at discharge. He should have continued speech therapy. Alcides was discharged to [facility] on 03/15/2023 for continued therapy prior to returning home. He will follow-up with his orthopedic surgeon,Dr. Arias in 2-3 weeks, sooner if any breakdown of the incision or increasing erythema or if purulent DC. He will follow up with Dr. Canchola in 2-3 weeks for a voiding trial. He is on Flomax 0.4 mg BID and Proscar at the time of DC and will have orthostatic VS done at admission to [facility] and they will be repeated in 1 week. He can follow up with Dr. Sanchez as previously scheduled but, will need to be seen sooner if the Creat increases above 3. He will follow up with Dr. Coleman from neurology as previously scheduled. Alcides tells me that he will have a R TKA following completion of the antibiotics. Alcides has DM II and creat now is consistent with stage 4 CRF. Due to these conditions he is at increased risk for infection with any surgery. He also tells me that he is planning to have surgery on his Left shoulder in the future. I do not think Alcides has a realistic view on his conditions and ability to rehabilitate from surgeries. Physical Exam Const alert and no apparent distress Constitutional Narrative: He is lying in bed at the time of my exam and appears comfortable. He was sleeping earlier today when I entered his room. General Appearance: cooperative HEENT Mouth: dry mucous membranes Neck supple Resp Resp Narrative: CTA anterior and lateral. Not tachypneic and breathing is not labored. No conversational dyspnea. Is compliant with wearing CPAP at night. Cardio regular rate, regular rhythm, no murmurs, no rub and no gallops Cardio Narrative: Sometimes is irregular but, when he is irregular the HR is well controlled. GI normal to inspection, nondistended, normoactive bowel sounds, soft to palpation and non-tender GI Narrative: No guarding with palpation. Extremity no calf tenderness Extremity Narrative: No edema in either ankle. Edema in the R thigh is much improved. General Extremity: Negative for edema Skin Rashes: no rashes Wound Narrative: The incision is intact with no dehiscence. There is no kylah-incisional erythema and no DC from the incision. Psych affect normal Psych Narrative: Tends to have some tangential thinking at times and gets off topic fairly easily at times. Eating well, sleeping well. Appearance: appropriate Attitude: No agitated Activity / Motor Behavior: Negative for restless Weight / BMI Weight Weight: 227 lb 1.218 oz Body Mass Index (BMI) 33.6 ABG / Lab / Microbiology Data 03/15/23 05:33 03/15/23 05:33 Laboratory: Laboratory Results - last 24 hr 03/14/23 16:48: POC Glucose 189 H 03/14/23 20:02: POC Glucose 199 H 03/15/23 05:33: WBC 6.6, RBC 3.11 L, Hgb 9.3 L, Hct 29.1 L, MCV 93.6, MCH 29.9, MCHC 32.0, RDW Std Deviation 41.2, RDW Coeff of Whitney 12.2, Plt Count 255, MPV 11.3, Immature Gran % (Auto) 0.500, Neut % (Auto) 63.2, Lymph % (Auto) 11.3 L, Talbot % (Auto) 15.2 H, Eos % (Auto) 8.3 H, Baso % (Auto) 1.5 H, Absolute Neuts (auto) 4.2, Absolute Lymphs (auto) 0.75 L, Nucleated RBC % 0, ESR 50 H, Sodium 139, Potassium 4.1, Chloride 104, Carbon Dioxide 29.0, Anion Gap 6, BUN 49 H, Creatinine 2.62 H, Estim Creat Clear Calc 24.29, Est GFR (MDRD) Af Amer 31 L, Est GFR (MDRD) Non-Af 26 L, BUN/Creatinine Ratio 18.7, Glucose 92, Calcium 9.2, C-React Prot Ext Range 16.20 H 03/15/23 06:49: POC Glucose 86 03/15/23 11:48: POC Glucose 136 H Microbiology: Microbiology 03/01/23 11:30 Urine, Catheterized Urine Culture - Final Yeast, not Tabitha albicans D/C Instructions Please Follow Up With: Dr. 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 Alcides will need to follow up with Dr. Arias, orthopedic surgeon, in 2-[address] Arias did the explant and antibiotic spacer but, the plan is to have a new R TKA after the antibiotics have completed. 2. Alcides is still retaining urine and we have done 2 voiding trials. Proscar was added to Flomax on 03/15/23. Will follow up with Dr. Canchola in 2 weeks for a voiding trial.......needs an appt scheduled. 3. Needs weekly labs while on Ceftriaxone and Vancomycin. CBC with diff, BMP, ESR and CRP. 4. Creat was increased at 2.62 on the day of DC. Baseline over the past 18 months has ranged from 2.04 to 2.95. The last Vanco trough was 13.8 on 03/13/23. Pharmacist should follow the Vanco troughs and adjust as needed. 5. He needs to be reminded regularly to increase his fluid intake. 6. HGB is stable and ranges from 9.0 - 9.5. Will check iron studies with the next weekly lab work which should be 03/22/23. He has chronic N/N anemia more likely than not due to CRF. Discharge Orders/Prescriptions Prescriptions: New fenofibrate nanocrystallized 48 mg Tablet 48 mg PO DAILY Qty: 1 0RF sodium chloride 0.9 % (flush) [BD PosiFlush Normal Saline 0.9] Syringe 10 ml IV PRN PRN (Reason: Saline Flush) Qty: 5 0RF alendronate 70 mg Tablet 70 mg PO Q7D@0700 Qty: 1 0RF Rx Instructions: Last dose given 03/12/23 bisacodyl 10 mg Suppository 10 mg NH .PRN X 1 PRN (Reason: Constipation) Qty: 1 0RF calcium carbonate 200 mg calcium (500 mg) Tablet,Chewable 500 mg PO BIDCM Qty: 1 0RF buspirone 15 mg Tablet 15 mg PO DAILY Qty: 1 0RF Jardiance 10 mg Tablet 10 mg PO DAILY Qty: 1 0RF finasteride 5 mg Tablet 5 mg PO DAILY Qty: 1 0RF Glucerna 1.2 David 0.06-1.2 gram-kcal/mL Liquid 120 ml PO TIDCM Qty: 1000 0RF insulin lispro [Humalog KwikPen Insulin] 100 unit/mL Insulin Pen 3 unit subcut TIDAC Qty: 1 0RF Protocol: 4. Sliding Scale Insulin High-Med Dosing Condition: 150-199 mg/dl = 2 units Condition: 200-259 mg/dl = 4 units Condition: 260-324 mg/dl = 6 units Condition: 325-374 mg/dl = 8 units Condition: 375-409 mg/dl = 10 units Condition: 410-449 mg/dl = 11 units Condition: Greater than 449 call physician Protocol Text: - Use for Total Daily Dose of Insulin 56-80 units - Patient who are insulin resistant or septic HIGH MEDIUM DOSING ALGORITHM magnesium hydroxide 400 mg/5 mL Suspension 30 ml PO .PRN X 1 PRN (Reason: Constipation) Qty: 30 0RF sennosides-docusate sodium [Stool Softener-Stimulant Laxat] 8.6-50 mg Tablet 2 tab PO BID Qty: 1 0RF cholecalciferol (vitamin D3) 25 mcg (1,000 unit) Tablet 50 mcg PO DAILY Qty: 1 0RF vancomycin in 0.9 % sodium chl 1 gram/200 mL piggyback 1 g IV Q48H Rx Instructions: Pharmacist should control the dosing. We have been giving 1 GM Q 48H. Vanco trough is ordered for 16:30 today to adjust. Last dose should be 04/05/23 Continued multivitamin [Daily Multi-Vitamin] Tablet 1 tab PO DAILY tamsulosin 0.4 mg capsule 0.4 mg PO BID lisinopril 10 mg tablet 10 mg PO DAILY amlodipine 10 mg tablet 10 mg PO DAILY Hold Instructions: Resume on 12/19/22. Please discuss with your primary care physician prior to resuming furosemide 40 mg tablet 40 mg PO BID atorvastatin 80 mg Tablet 80 mg PO QHS buspirone 15 mg Tablet 7.5 mg PO BID Rx Instructions: 1/2 TAB BID FOR 2 WEEKS THEN 1 TAB BID aspirin 81 mg Capsule 81 mg PO DAILY omeprazole 20 mg capsule,delayed release(DR/EC) 40 mg PO DAILY zonisamide [Zonegran] 25 mg capsule 50 mg PO BID sertraline 50 mg tablet 100 mg PO DAILY insulin glargine-yfgn 100 unit/mL (3 mL) Insulin Pen 25 unit SUBCUT QPM amiodarone 200 mg tablet 200 mg PO DAILY carvedilol [Coreg] 3.125 mg tablet 3.125 mg PO BID ascorbic acid (vitamin C) 500 mg tablet 1,000 mg PO LUNCH Mag 64 64 mg tablet,delayed release (DR/EC) 128 mg PO DAILY ceftriaxone 2 gram Recon Soln 2 g IV DAILY Qty: 20 0RF ferrous sulfate 325 mg (65 mg iron) tablet 325 mg PO DAILY Qty: 30 0RF Rx Instructions: give this at noon daily with the ferrous sulfate. oxycodone 5 mg Tablet 5 - 10 mg PO Q6H PRN (Reason: pain) 7 Days Qty: 21 0RF Rx Instructions: 5 mg for pain 1-4 and 10 mg for pain 5-10 apixaban 5 mg tablet 5 mg PO BID Qty: 1 0RF Changed acetaminophen 500 mg tablet 1,000 mg PO Q8H PRN PRN (Reason: Pain 1-10) Qty: 1 0RF Discontinued insulin aspart U-100 100 unit/mL (3 mL) insulin pen See Rx Instructions .ROUTE .COMPLEX 30 Days Qty: 15 0RF Rx Instructions: Please use sliding scale provided dextrose 40 % in water (D40W) 40 % Parenteral Solution 15 ea IV PRN PRN (Reason: Low blood sugar) vancomycin 250 mg Recon Soln 1.25 g IV Q24H fenofibrate 54 mg tablet 54 mg PO DAILY Referrals / Follow Up: Nicolas Glass [Other] (Ortho) Lester Jarvis MD [Primary Care Provider] - Aj Canchola MD [Med Staff - Active Staff] - Disposition Disposition (needs filled in before D/C Order can be placed): [facility] Facility Charges/Coding Visit Charges Inpatient E&M: 06437 Disch Hosp >30min
[2023-03-15 13:07] VITALS: BMI 33.6
[2023-03-15] MEDS: metFORMIN HCl 500 MG Tablet PO (17:00)
[2023-03-15 17:12] LABS: Bedside Glucose 155 mg/dL (74-106)
[2023-03-15 17:20] LABS: Vancomycin, Random Level 13.5 ug/mL (0.0-15.0)
[2023-03-15 18:56] VITALS: BP 112/64; PULSE 73; RESP 15; TEMP 36.2; O2SAT 98
--- NOTE | 2023-03-15 19:31 | PCM.RX.CS ---
Consult Antibiotic Management Pharmacy has been consulted to manage selected antiobiotic: Vancomycin Type of Intervention Type of Consult: Follow-up Suspected Infection Suspected Infection: Other Prior Doses of Antibiotics Prior Doses of Antibiotics Received/Current Regimen: Last dose was 1000mg iv on 03.13.23 @1715. Labs Labs: Sodium 139 mmol/L (136-145) 03/15/23 05:33 Potassium 4.1 mmol/L (3.5-5.1) 03/15/23 05:33 Chloride 104 mmol/L (98-107) 03/15/23 05:33 Carbon Dioxide 29.0 mmol/L (21.0-32.0) 03/15/23 05:33 Anion Gap 6 (5-15) 03/15/23 05:33 BUN 49 mg/dL (7-18) H 03/15/23 05:33 Creatinine 2.62 mg/dL (0.70-1.30) H 03/15/23 05:33 Est GFR (MDRD) Af Amer 31 mL/min (>60) L 03/15/23 05:33 Est GFR (MDRD) Non-Af 26 mL/min (>60) L 03/15/23 05:33 BUN/Creatinine Ratio 18.7 RATIO (10-20) 03/15/23 05:33 Glucose 92 mg/dL (74-106) 03/15/23 05:33 Vancomycin Trough 13.8 ug/mL (5.0-15.0) 03/13/23 16:14 Random Vancomycin 13.5 ug/mL (0.0-15.0) 03/15/23 16:25 Microbiology Microbiology: Microbiology 03/01/23 11:30 Urine, Catheterized Urine Culture - Final Yeast, not Tabitha albicans Dosing Weight Weight used for dosin kg Estimated Creatinine Clearance Estimated Creatinine Clearance: 30 ml/min Goal Trough Goal Trough: 15-20 mcg/mL Pharmacy Plan for Drug Dosing Pharmacy Plan for Drug Dosing: Random level today ~47 hrs post last dose was 13.5. CrCl ~30ml/min using adjusted body weight of 83.6kg. Will start 1000mg iv q24h . Trough level ordered for before 3rd dose.Pharmacy Service will continue to monitor and adjust dosing as required.
[2023-03-15] MEDS: Vancomycin IV 1,000 MG/200 ML BAG 200 MG IV (21:20)
[2023-03-15] MEDS: Acetaminophen 500 MG Tablet 1000 MG PO (21:31)
[2023-03-15] MEDS: Atorvastatin Calcium 80 MG Tablet PO (21:33)
[2023-03-15] MEDS: Insulin Glargine-YFGN 100 UNIT/ML Pen 25 UNIT SC (21:33)
[2023-03-15 21:46] LABS: Bedside Glucose 185 mg/dL (74-106)
[2023-03-15 21:49] VITALS: BMI 33.6
[2023-03-15 22:00] VITALS: PULSE 88; RESP 16; O2SAT 96
[2023-03-16 07:25] LABS: Bedside Glucose 106 mg/dL (74-106)
[2023-03-16 08:11] LABS: Bedside Glucose 98 mg/dL (74-106)
[2023-03-16] MEDS: Insulin Lispro 100 UNIT/ML INSULN.PEN SC ×3 (08:36→16:55)
[2023-03-16] MEDS: Glucerna Shake 120 ML LIQUID PO ×3 (08:37→16:59)
[2023-03-16] MEDS: Carvedilol 6.25 MG Tablet PO ×2 (08:37→16:57)
[2023-03-16] MEDS: Aspirin 81 MG TAB.CHEW PO (08:37)
[2023-03-16] MEDS: Multivitamins,Therapeutic Tablet 1 TABLET PO (08:38)
[2023-03-16] MEDS: Calcium Carbonate 500 MG Tablet PO ×2 (08:39→16:57)
[2023-03-16] MEDS: busPIRone 15 MG TABLET PO (08:40)
[2023-03-16] MEDS: Amiodarone 200 MG Tablet PO (08:41)
[2023-03-16] MEDS: APIXABAN 5 MG TABLET PO ×2 (08:41→21:43)
[2023-03-16] MEDS: Empagliflozin 10 MG Tablet PO (08:42)
[2023-03-16] MEDS: Magnesium Chloride 64 MG Delay Rel.Tablet 128 MG PO (08:42)
[2023-03-16] MEDS: Tamsulosin HCl 0.4 MG Capsule PO ×2 (08:42→21:44)
[2023-03-16] MEDS: Furosemide 40 MG Tablet PO ×2 (08:43→16:57)
[2023-03-16] MEDS: Pantoprazole Sodium 20 MG Tablet 40 MG PO (08:45)
[2023-03-16] MEDS: amLODIPine 10 MG Tablet PO (08:45)
[2023-03-16] MEDS: Fenofibrate 48 MG Tablet PO (08:50)
[2023-03-16] MEDS: Cholecalciferol (VIT D3) 25 MCG TABLET (1,000 UNITS) 50 MCG PO (08:50)
[2023-03-16] MEDS: Sertraline 50 MG Tablet 100 MG PO (08:51)
[2023-03-16] MEDS: Zonisamide 50 MG Capsule PO ×2 (08:51→21:44)
[2023-03-16] MEDS: Lisinopril 10 MG Tablet PO (08:51)
[2023-03-16] MEDS: Finasteride 5 MG Tablet PO (08:52)
[2023-03-16 10:00] VITALS: BP 136/54; PULSE 76; RESP 16; TEMP 36; O2SAT 97
[2023-03-16] MEDS: 0.9% Saline Lock 10 ML Syringe IV (10:26)
[2023-03-16] MEDS: Ascorbic Acid 500 MG Tablet 1000 MG PO (11:27)
[2023-03-16] MEDS: Ferrous Sulfate 325 MG Tablet PO (11:27)
[2023-03-16 11:52] LABS: Bedside Glucose 154 mg/dL (74-106)
[2023-03-16 15:58] VITALS: BMI 33.6
[2023-03-16] MEDS: metFORMIN HCl 500 MG Tablet PO (16:58)
[2023-03-16 17:57] LABS: Bedside Glucose 144 mg/dL (74-106)
[2023-03-16 19:58] VITALS: BP 107/60; PULSE 83; RESP 16; TEMP 36.1; O2SAT 96
[2023-03-16] MEDS: Insulin Glargine-YFGN 100 UNIT/ML Pen 25 UNIT SC (21:40)
[2023-03-16] MEDS: Vancomycin IV 1,000 MG/200 ML BAG 200 MG IV (21:41)
[2023-03-16] MEDS: 0.9 % NaCl (Sterile) Posiflush 10 mL IV ×2 (21:41→21:48)
[2023-03-16] MEDS: Senna/Docusate Sodium 1 Tablet 2 TABLET PO (21:42)
[2023-03-16] MEDS: Atorvastatin Calcium 80 MG Tablet PO (21:42)
[2023-03-16 22:00] VITALS: PULSE 84; RESP 15; O2SAT 97
[2023-03-16 22:03] VITALS: BMI 33.6
[2023-03-16] MEDS: Acetaminophen 500 MG Tablet 1000 MG PO (22:10)
[2023-03-16 22:40] LABS: Bedside Glucose 157 mg/dL (74-106)
[2023-03-17 06:00] VITALS: BMI 34.1
[2023-03-17 07:23] VITALS: BP 112/66; PULSE 87; RESP 17; TEMP 36.3; O2SAT 97
[2023-03-17 07:23] LABS: Bedside Glucose 109 mg/dL (74-106)
[2023-03-17] MEDS: Calcium Carbonate 500 MG Tablet PO ×2 (09:25→17:08)
[2023-03-17] MEDS: Insulin Lispro 100 UNIT/ML INSULN.PEN SC ×3 (09:26→17:07)
[2023-03-17] MEDS: Lisinopril 10 MG Tablet PO (09:27)
[2023-03-17] MEDS: Fenofibrate 48 MG Tablet PO (09:27)
[2023-03-17] MEDS: Sertraline 50 MG Tablet 100 MG PO (09:27)
[2023-03-17] MEDS: Pantoprazole Sodium 20 MG Tablet 40 MG PO (09:27)
[2023-03-17] MEDS: Magnesium Chloride 64 MG Delay Rel.Tablet 128 MG PO (09:28)
[2023-03-17] MEDS: Furosemide 40 MG Tablet PO ×2 (09:28→17:08)
[2023-03-17] MEDS: APIXABAN 5 MG TABLET PO ×2 (09:28→22:00)
[2023-03-17] MEDS: Empagliflozin 10 MG Tablet PO (09:28)
[2023-03-17] MEDS: amLODIPine 10 MG Tablet PO (09:28)
[2023-03-17] MEDS: Tamsulosin HCl 0.4 MG Capsule PO ×2 (09:28→22:00)
[2023-03-17] MEDS: Finasteride 5 MG Tablet PO (09:29)
[2023-03-17] MEDS: busPIRone 15 MG TABLET PO (09:29)
[2023-03-17] MEDS: Carvedilol 6.25 MG Tablet PO ×2 (09:29→17:08)
[2023-03-17] MEDS: Aspirin 81 MG TAB.CHEW PO (09:29)
[2023-03-17] MEDS: Multivitamins,Therapeutic Tablet 1 TABLET PO (09:29)
[2023-03-17] MEDS: Zonisamide 50 MG Capsule PO ×2 (09:30→22:01)
[2023-03-17] MEDS: Cholecalciferol (VIT D3) 25 MCG TABLET (1,000 UNITS) 50 MCG PO (09:30)
[2023-03-17] MEDS: Glucerna Shake 120 ML LIQUID PO ×3 (09:32→17:09)
[2023-03-17] MEDS: Amiodarone 200 MG Tablet PO (09:39)
[2023-03-17] MEDS: Acetaminophen 500 MG Tablet 1000 MG PO ×2 (09:48→20:28)
[2023-03-17] MEDS: 0.9% Saline Lock 10 ML Syringe IV (09:49)
[2023-03-17] MEDS: Ascorbic Acid 500 MG Tablet 1000 MG PO ×2 (11:37→11:51)
[2023-03-17] MEDS: Ferrous Sulfate 325 MG Tablet PO (11:37)
[2023-03-17] MEDS: 0.9 % NaCl (Sterile) Posiflush 10 mL IV (11:56)
[2023-03-17 12:09] LABS: Bedside Glucose 192 mg/dL (74-106)
[2023-03-17 13:40] VITALS: BMI 34.1
[2023-03-17] MEDS: metFORMIN HCl 500 MG Tablet PO (17:08)
[2023-03-17 17:12] LABS: Bedside Glucose 232 mg/dL (74-106)
[2023-03-17 20:14] VITALS: RESP 16; O2SAT 97
[2023-03-17] MEDS: Vancomycin IV 1,000 MG/200 ML BAG 200 MG IV (20:28)
[2023-03-17 21:18] LABS: Vancomycin, Trough Level 22.4 ug/mL (5.0-15.0)
--- NOTE | 2023-03-17 21:25 | PHA.PHARE_ITS ---
<Statement entered by Tash Gaitan, DO - 03/18/23 11:24> I have personally performed a face to face assessment of the patient and have reviewed the ROMA Note. Consult Antibiotic Management Pharmacy has been consulted to manage selected antiobiotic: Vancomycin Type of Intervention Type of Consult: Follow-up Suspected Infection Suspected Infection: Skin/Soft tissue Labs Labs: Sodium 139 mmol/L (136-145) 03/15/23 05:33 Potassium 4.1 mmol/L (3.5-5.1) 03/15/23 05:33 Chloride 104 mmol/L (98-107) 03/15/23 05:33 Carbon Dioxide 29.0 mmol/L (21.0-32.0) 03/15/23 05:33 Anion Gap 6 (5-15) 03/15/23 05:33 BUN 49 mg/dL (7-18) H 03/15/23 05:33 Creatinine 2.62 mg/dL (0.70-1.30) H 03/15/23 05:33 Est GFR (MDRD) Af Amer 31 mL/min (>60) L 03/15/23 05:33 Est GFR (MDRD) Non-Af 26 mL/min (>60) L 03/15/23 05:33 BUN/Creatinine Ratio 18.7 RATIO (10-20) 03/15/23 05:33 Glucose 92 mg/dL (74-106) 03/15/23 05:33 Vancomycin Trough 22.4 ug/mL (5.0-15.0) H 03/17/23 20:32 Random Vancomycin 13.5 ug/mL (0.0-15.0) 03/15/23 16:25 Microbiology Microbiology: Microbiology 03/01/23 11:30 Urine, Catheterized Urine Culture - Final Yeast, not Tabitha albicans Dosing Weight Weight used for dosin.6 kg Estimated Creatinine Clearance Estimated Creatinine Clearance: 30 Goal Trough Goal Trough: 15-20 mcg/mL Pharmacy Plan for Drug Dosing Pharmacy Plan for Drug Dosing: The vancomycin trough drawn 23hrs post-dose was high at 22.4. The current 03/17 2100 dose had already been hung to completion before results were available. Will suspend the current order and draw another level in 24 hours. Further dosing will be determined from that result. Pharmacy Service will continue to monitor and adjust dosing as required. Follow-Up Labs Follow-Up Labs: Trough: Vancomycin Date/Time Labs Ordered Labs to be done on [date and time ordered]: 03/18/23 @2030
[2023-03-17 21:47] LABS: Bedside Glucose 113 mg/dL (74-106)
[2023-03-17] MEDS: Insulin Glargine-YFGN 100 UNIT/ML Pen 25 UNIT SC (21:59)
[2023-03-17 22:00] VITALS: BP 106/64; PULSE 86; RESP 18; TEMP 36.6; O2SAT 96
[2023-03-17] MEDS: Atorvastatin Calcium 80 MG Tablet PO (22:01)
[2023-03-18] MEDS: Acetaminophen 500 MG Tablet 1000 MG PO ×2 (03:33→21:29)
[2023-03-18 05:51] VITALS: BMI 34.1
[2023-03-18 06:00] VITALS: BMI 33.9
[2023-03-18 07:39] LABS: Bedside Glucose 86 mg/dL (74-106)
[2023-03-18 08:03] VITALS: BP 106/65; PULSE 86; RESP 16; TEMP 36.5; O2SAT 97
[2023-03-18] MEDS: Pantoprazole Sodium 20 MG Tablet 40 MG PO (08:23)
[2023-03-18] MEDS: Magnesium Chloride 64 MG Delay Rel.Tablet 128 MG PO (08:23)
[2023-03-18] MEDS: Finasteride 5 MG Tablet PO (08:24)
[2023-03-18] MEDS: Amiodarone 200 MG Tablet PO (08:24)
[2023-03-18] MEDS: Sertraline 50 MG Tablet 100 MG PO (08:24)
[2023-03-18] MEDS: Tamsulosin HCl 0.4 MG Capsule PO ×2 (08:24→21:28)
[2023-03-18] MEDS: Calcium Carbonate 500 MG Tablet PO ×2 (08:24→17:24)
[2023-03-18] MEDS: Senna/Docusate Sodium 1 Tablet 2 TABLET PO ×2 (08:24→21:29)
[2023-03-18] MEDS: Furosemide 40 MG Tablet PO ×2 (08:24→17:24)
[2023-03-18] MEDS: Fenofibrate 48 MG Tablet PO (08:24)
[2023-03-18] MEDS: Carvedilol 6.25 MG Tablet PO ×2 (08:24→17:25)
[2023-03-18] MEDS: Lisinopril 10 MG Tablet PO (08:24)
[2023-03-18] MEDS: amLODIPine 10 MG Tablet PO (08:24)
[2023-03-18] MEDS: Cholecalciferol (VIT D3) 25 MCG TABLET (1,000 UNITS) 50 MCG PO (08:25)
[2023-03-18] MEDS: Aspirin 81 MG TAB.CHEW PO (08:25)
[2023-03-18] MEDS: Zonisamide 50 MG Capsule PO ×2 (08:25→21:29)
[2023-03-18] MEDS: APIXABAN 5 MG TABLET PO ×2 (08:25→21:28)
[2023-03-18] MEDS: Multivitamins,Therapeutic Tablet 1 TABLET PO (08:25)
[2023-03-18] MEDS: Empagliflozin 10 MG Tablet PO (08:25)
[2023-03-18] MEDS: Glucerna Shake 120 ML LIQUID PO ×3 (08:27→17:27)
[2023-03-18] MEDS: 0.9% Saline Lock 10 ML Syringe IV (09:43)
[2023-03-18] MEDS: busPIRone 15 MG TABLET PO (09:54)
[2023-03-18 11:23] LABS: Bedside Glucose 149 mg/dL (74-106)
[2023-03-18] MEDS: Ferrous Sulfate 325 MG Tablet PO (12:16)
[2023-03-18] MEDS: Insulin Lispro 100 UNIT/ML INSULN.PEN SC ×2 (12:17→17:25)
[2023-03-18 13:22] VITALS: BMI 33.9
--- NOTE | 2023-03-18 15:46 | PN_ITS ---
Subjective Subjective afebrile VSS Maintaining appropriate oxygen saturation on RA Oral intake is good Discussed with nursing - no problems that need addressed Alcides was supposed to be discharged on the however we did not get a precert and he is still sitting here. I am concerned because this is his 4th day without therapy and I feel we will lose significant ground if this continues. Medication list reviewed. He tells me that his pain is adequately controlled. He is sleeping well at night. He is c/o that his R leg feels more swollen up around the knee erick on the lateral side. He denies lightheadedness, chest pain, shortness of breath, cough, nausea/vomiting/abdominal pain/constipation, suprapubic pain and calf pain. Objective Data Objective Data Vital Signs: Vital Signs Temp Pulse Resp BP Pulse Ox O2 Del Method O2 Flow Rate 97.7 F L 86 16 106/65 97 Room Air 2 03/18/23 08:03 03/18/23 08:03 03/18/23 08:03 03/18/23 08:03 03/18/23 08:03 03/18/23 08:03 03/15/23 08:30 Oxygen Flow Rate (L/min) 2 Oxygen Delivery Method Room Air Weight: 229 lb 0.964 oz Body Mass Index (BMI) 33.9 Intake & Output: Intake and Output for Last 24 Hours 03/16/23 03/17/23 03/18/23 23:59 23:59 23:59 Intake Total 4010 / 4010 2910 / 3210 1350 / 1350 Output Total 5250 / 5250 2450 / 3650 3300 / 3300 Balance -1240 / -1240 460 / -440 -1950 / -1950 Lab / Micro Data 03/15/23 05:33 03/15/23 05:33 Labs: Laboratory Results - last 24 hr 03/17/23 16:50: POC Glucose 232 H 03/17/23 20:27: POC Glucose 113 H 03/17/23 20:32: Vancomycin Trough 22.4 H 03/18/23 07:11: POC Glucose 86 03/18/23 11:00: POC Glucose 149 H Micro: Microbiology 03/01/23 11:30 Urine, Catheterized Urine Culture - Final Yeast, not Tabitha albicans Physical Exam Const alert, oriented x3 and no apparent distress Resp normal respiratory effort and clear to auscultation bilaterally Resp Narrative: CTA anterior and lateral. Not tachypneic and breathing is not labored. No conversational dyspnea. Is compliant with wearing CPAP at night. Cardio regular rate, regular rhythm, no murmurs, no rub and no gallops Cardio Narrative: Sometimes is irregular but, when he is irregular the HR is well controlled. GI normal to inspection, nondistended, normoactive bowel sounds, soft to palpation, non-tender and non-distended GI Narrative: No guarding with palpation. Bladder / Kidney Exam: catheter in place Extremity no calf tenderness Extremity Narrative: No edema in either ankle. Edema in the R thigh is much improved. I do not perceive any edema of the R lateral knee. The JAVY is not applied properly. It starts at Mid calf and goes up above the knee. It is likely tense and this may be what he is perceiving as Swelling. I rewrapped it to go from the base of the toes to the knee and will have nursing get a second JAVY to extend the wrap up to mid thigh where the incision ends. The incision looks great with no dehiscence and no erythema or purulent DC. There is a small scab mid incision which is unchanged. General Extremity: Negative for edema Skin Wound Narrative: The incision is intact with no dehiscence. There is no kylah-incisional erythema and no DC from the incision. Psych cooperative, affect normal, speech normal, denies homicidal ideation and denies suicidal ideation Psych Narrative: Tends to have some tangential thinking at times and gets off topic fairly easily at times. Eating well, sleeping well. Appearance: grossly normal and appropriate Attitude: calm, engaged and No agitated Activity / Motor Behavior: Negative for restless Assessment & Plan Assessment/Plan (1) Physical debility: (2) Infected prosthetic knee joint: PLAN: Continue ceftriaxone and vancomycin with a stop date of April 05. (3) Aftercare following explantation of knee joint prosthesis: (4) History of CVA (cerebrovascular accident): (5) Diabetes mellitus, type 2: (6) Urine retention: (7) Wiggins catheter in place: (8) BPH (benign prostatic hyperplasia): QUALIFIERS: Lower urinary tract symptom presence: symptoms present Lower urinary tract symptom detail: urinary hesitancy Qualified Code(s): N40.1 - Benign prostatic hyperplasia with lower urinary tract symptoms; R39.11 - Hesitancy of micturition (9) CKD (chronic kidney disease), stage III: QUALIFIERS: Chronic kidney disease stage 3 subtype: stage 3b (GFR 30-44) Qualified Code(s): N18.32 - Chronic kidney disease, stage 3b (10) Normochromic normocytic anemia: (11) Persistent atrial fibrillation: (12) Hypomagnesemia: (13) Depression: QUALIFIERS: Depression Type: reactive depression Qualified Code (s): F32.9 - Major depressive disorder, single episode, unspecified (14) Cognitive dysfunction: (15) Left-sided weakness: (16) Chronic anticoagulation: PLAN: Continue apixaban 5 mg p.o. twice daily (17) Non-ischemic cardiomyopathy: (18) Atrial tachycardia: (19) Candiduria: (20) WANDA (obstructive sleep apnea): (21) Seizure disorder: (22) Osteopenia determined by x-ray: PLAN: Likely related to disuse over the past year with limited weight bearing. Also the PTH last year was high normal. Started on Fosamax and is tolerating without SE. Should have a BMD study post DC from rehab. PLAN: Plan 1. Awaiting precert to transfer to an SNF. 2. Vanc trough yesterday was high at 22.4. and pharm has adjusted the dose. 3. Blood sugars remain well controlled 4. Check a BMP in the a.m. 5. Renew vancomycin and ceftriaxone. Charges/Coding Visit Charges Inpatient E&M: 40565 Subs Hosp L2
[2023-03-18 16:42] LABS: Bedside Glucose 133 mg/dL (74-106)
[2023-03-18] MEDS: metFORMIN HCl 500 MG Tablet PO (17:25)
[2023-03-18 21:10] LABS: Vancomycin, Trough Level 21.2 ug/mL (5.0-15.0)
--- NOTE | 2023-03-18 21:19 | PHA.PHARE_ITS ---
<Statement entered by Tash Gaitan, DO - 03/22/23 11:00> I have personally performed a face to face assessment of the patient and have reviewed the ROMA Note. Consult Antibiotic Management Pharmacy has been consulted to manage selected antiobiotic: Vancomycin Type of Intervention Type of Consult: Follow-up Suspected Infection Suspected Infection: Skin/Soft tissue Labs Labs: Sodium 139 mmol/L (136-145) 03/15/23 05:33 Potassium 4.1 mmol/L (3.5-5.1) 03/15/23 05:33 Chloride 104 mmol/L (98-107) 03/15/23 05:33 Carbon Dioxide 29.0 mmol/L (21.0-32.0) 03/15/23 05:33 Anion Gap 6 (5-15) 03/15/23 05:33 BUN 49 mg/dL (7-18) H 03/15/23 05:33 Creatinine 2.62 mg/dL (0.70-1.30) H 03/15/23 05:33 Est GFR (MDRD) Af Amer 31 mL/min (>60) L 03/15/23 05:33 Est GFR (MDRD) Non-Af 26 mL/min (>60) L 03/15/23 05:33 BUN/Creatinine Ratio 18.7 RATIO (10-20) 03/15/23 05:33 Glucose 92 mg/dL (74-106) 03/15/23 05:33 Vancomycin Trough 21.2 ug/mL (5.0-15.0) H 03/18/23 20:26 Random Vancomycin 13.5 ug/mL (0.0-15.0) 03/15/23 16:25 Microbiology Microbiology: Microbiology 03/01/23 11:30 Urine, Catheterized Urine Culture - Final Yeast, not Tabitha albicans Dosing Weight Weight used for dosin.9 kg Estimated Creatinine Clearance Estimated Creatinine Clearance: 30 Goal Trough Goal Trough: 15-20 mcg/mL Pharmacy Plan for Drug Dosing Pharmacy Plan for Drug Dosing: Vancomycin level drawn 03/18/23 @2025 was still a little high at 21.2. This is not surprising, since the 03/17 dose had been given, but reassuring that the level didn't rise further. We will hold dosing until the next level in 24 hours, if he remains at the hospital. Pharmacy Service will continue to monitor and adjust dosing as required. Follow-Up Labs Follow-Up Labs: Trough: Vancomycin (random) Date/Time Labs Ordered Labs to be done on [date and time ordered]: 03/19/23 @2030 random
[2023-03-18] MEDS: Insulin Glargine-YFGN 100 UNIT/ML Pen 25 UNIT SC (21:27)
[2023-03-18] MEDS: Atorvastatin Calcium 80 MG Tablet PO (21:29)
[2023-03-18 21:48] VITALS: BP 104/58; PULSE 85; RESP 16; TEMP 36.6; O2SAT 99
[2023-03-18 23:37] LABS: Bedside Glucose 133 mg/dL (74-106)
[2023-03-19 01:11] VITALS: BMI 33.9
[2023-03-19 05:50] LABS: Anion Gap 6 (5-15); BUN 44 mg/dL (7-18); Calcium,Total 8.8 mg/dL (8.5-10.1); Chloride 104 mmol/L (98-107); EST Glomerular Filtration Rate 31 mL/min (>60); Est Glom Filt Rate - Afr Amer 38 mL/min (>60); Estimated Creatinine Clearance 28.93 ml/min; Glucose 85 mg/dL (74-106); Potassium 4.1 mmol/L (3.5-5.1); Sodium Level 137 mmol/L (136-145)
[2023-03-19 06:00] VITALS: BMI 33.7
[2023-03-19] MEDS: Alendronate Sodium 70 MG Tablet PO (06:35)
[2023-03-19 07:18] LABS: Bedside Glucose 76 mg/dL (74-106)
[2023-03-19 07:42] VITALS: BP 129/64; PULSE 87; RESP 16; TEMP 36.8; O2SAT 100
[2023-03-19] MEDS: Tamsulosin HCl 0.4 MG Capsule PO ×2 (08:04→21:57)
[2023-03-19] MEDS: Sertraline 50 MG Tablet 100 MG PO (08:04)
[2023-03-19] MEDS: amLODIPine 10 MG Tablet PO (08:04)
[2023-03-19] MEDS: Finasteride 5 MG Tablet PO (08:04)
[2023-03-19] MEDS: Pantoprazole Sodium 20 MG Tablet 40 MG PO (08:04)
[2023-03-19] MEDS: Zonisamide 50 MG Capsule PO ×2 (08:04→21:58)
[2023-03-19] MEDS: Amiodarone 200 MG Tablet PO (08:05)
[2023-03-19] MEDS: Magnesium Chloride 64 MG Delay Rel.Tablet 128 MG PO (08:05)
[2023-03-19] MEDS: Aspirin 81 MG TAB.CHEW PO (08:05)
[2023-03-19] MEDS: Carvedilol 6.25 MG Tablet PO ×2 (08:05→17:04)
[2023-03-19] MEDS: Fenofibrate 48 MG Tablet PO (08:05)
[2023-03-19] MEDS: Furosemide 40 MG Tablet PO ×2 (08:05→17:04)
[2023-03-19] MEDS: busPIRone 15 MG TABLET PO (08:05)
[2023-03-19] MEDS: Cholecalciferol (VIT D3) 25 MCG TABLET (1,000 UNITS) 50 MCG PO (08:05)
[2023-03-19] MEDS: Multivitamins,Therapeutic Tablet 1 TABLET PO (08:05)
[2023-03-19] MEDS: APIXABAN 5 MG TABLET PO ×2 (08:05→21:57)
[2023-03-19] MEDS: Lisinopril 10 MG Tablet PO (08:06)
[2023-03-19] MEDS: Insulin Lispro 100 UNIT/ML INSULN.PEN SC ×3 (08:06→17:03)
[2023-03-19] MEDS: Calcium Carbonate 500 MG Tablet PO ×2 (08:06→17:04)
[2023-03-19] MEDS: Glucerna Shake 120 ML LIQUID PO ×3 (08:06→17:04)
[2023-03-19] MEDS: Empagliflozin 10 MG Tablet PO (08:07)
[2023-03-19] MEDS: 0.9% Saline Lock 10 ML Syringe IV ×2 (09:28→23:50)
[2023-03-19 11:24] LABS: Bedside Glucose 132 mg/dL (74-106)
[2023-03-19] MEDS: Ascorbic Acid 500 MG Tablet 1000 MG PO (12:03)
[2023-03-19] MEDS: Ferrous Sulfate 325 MG Tablet PO (12:03)
[2023-03-19 16:55] LABS: Bedside Glucose 206 mg/dL (74-106)
[2023-03-19 17:00] VITALS: BMI 33.7
[2023-03-19] MEDS: metFORMIN HCl 500 MG Tablet PO (17:04)
[2023-03-19 19:48] VITALS: BP 109/65; PULSE 86; RESP 17; TEMP 36.7; O2SAT 96
[2023-03-19 21:37] LABS: Vancomycin, Random Level 16.5 ug/mL (0.0-15.0)
[2023-03-19] MEDS: Atorvastatin Calcium 80 MG Tablet PO (21:57)
[2023-03-19] MEDS: Senna/Docusate Sodium 1 Tablet 2 TABLET PO (21:57)
[2023-03-19] MEDS: Acetaminophen 500 MG Tablet 1000 MG PO (21:59)
[2023-03-19] MEDS: Insulin Glargine-YFGN 100 UNIT/ML Pen 25 UNIT SC (22:04)
[2023-03-19 22:52] LABS: Bedside Glucose 109 mg/dL (74-106)
[2023-03-20 06:00] VITALS: BMI 33.6
[2023-03-20 06:06] LABS: Bedside Glucose 94 mg/dL (74-106)
[2023-03-20 08:31] VITALS: BP 104/64; PULSE 76; RESP 18; TEMP 36.6; O2SAT 97
[2023-03-20] MEDS: Lisinopril 10 MG Tablet PO (08:44)
[2023-03-20] MEDS: Magnesium Chloride 64 MG Delay Rel.Tablet 128 MG PO (08:45)
[2023-03-20] MEDS: Multivitamins,Therapeutic Tablet 1 TABLET PO (08:45)
[2023-03-20] MEDS: Carvedilol 6.25 MG Tablet PO ×2 (08:45→16:48)
[2023-03-20] MEDS: Aspirin 81 MG TAB.CHEW PO (08:45)
[2023-03-20] MEDS: Senna/Docusate Sodium 1 Tablet 2 TABLET PO (08:45)
[2023-03-20] MEDS: Cholecalciferol (VIT D3) 25 MCG TABLET (1,000 UNITS) 50 MCG PO (08:45)
[2023-03-20] MEDS: Pantoprazole Sodium 20 MG Tablet 40 MG PO (08:45)
[2023-03-20] MEDS: Fenofibrate 48 MG Tablet PO (08:45)
[2023-03-20] MEDS: Tamsulosin HCl 0.4 MG Capsule PO (08:45)
[2023-03-20] MEDS: Sertraline 50 MG Tablet 100 MG PO (08:45)
[2023-03-20] MEDS: Finasteride 5 MG Tablet PO (08:46)
[2023-03-20] MEDS: Calcium Carbonate 500 MG Tablet PO ×2 (08:46→16:48)
[2023-03-20] MEDS: Empagliflozin 10 MG Tablet PO (08:46)
[2023-03-20] MEDS: APIXABAN 5 MG TABLET PO (08:46)
[2023-03-20] MEDS: Amiodarone 200 MG Tablet PO (08:46)
[2023-03-20] MEDS: busPIRone 15 MG TABLET PO (08:46)
[2023-03-20] MEDS: Zonisamide 50 MG Capsule PO (08:46)
[2023-03-20] MEDS: Glucerna Shake 120 ML LIQUID PO ×2 (08:46→11:48)
[2023-03-20] MEDS: Furosemide 40 MG Tablet PO ×2 (08:46→16:49)
[2023-03-20] MEDS: amLODIPine 10 MG Tablet PO (08:46)
[2023-03-20] MEDS: 0.9% Saline Lock 10 ML Syringe IV (09:25)
--- NOTE | 2023-03-20 10:48 | CASEMGMT ---
Addendum entered by Imani Traore 03/20/23 16:33: Evals sent to [facility] reviewer and updated [facility] that precert has been approved. Pt can transfer skilled to [facility] on this date. SW updated IDT, pt and . Scheduled transport for 1800. Addendum entered by Imani Traore 03/20/23 15:37: Received call from very upset stating she spoke with [facility] rep whom stated the precert was not denied. No outcome had been given about the precert as [facility] was asking for RU to complete new PT and OT evals to process the precert. explained, per [facility], if the pt discharged today without outcome of precert, pt would not be able to get skilled services at [facility]. demanded multiple times to this worker for PT and OT evals to be completed and pt not to DC today. SW redirected to have a calm conversation with this worker for this worker to problem-solve. offered to have [facility] rep contact this worker directly to verbalize needs for transfer. SW collaborated with Admissions [employer] and RU Director on above statements from . Admissions [employer] had direct phone number to [facility] reviewer. All three parties spoke to reviewer via phone to inquire about precert and 's statements. Reviewer confirmed that precert was not approved or denied, stating an outcome could not be given without seeing therapy notes. Confirmed need for PT/OT evals from RU not [facility], as if pt admits MCDP, nonskilled, pt could not be skilled at [facility] unless a new dx is given to submit new precert. After some discussion, RU Director agreed to have PT/OT evals for precert process. SW phoned [facility] Admissions to update on above. Placed transport on Will Call. Updated IDT. Phoned to update on OT/PT evals and pt will remain in RU until confirmed precert outcome is given directly from [facility] reviewer. appreciative. Plan: DC to [facility], pending outcome of precert. Addendum entered by Imani Traore 03/20/23 11:48: Agnes was under the impression pt would admit skilled. However, [facility] can accept today MCDP. SW phoned to update and states I just want him out of here and agreed to transfer to [facility] today. SW scheduled w/c transport through [facility] for 1330. SW updated SNFs and IDT. Plan: DC 03/20 to [facility], intermediate Original Note: Social Work Received notification from [facility] that precert was denied. SW inquired about pt admitting with Medicaid pending number and sent [facility] LYNN carlos enrique. [facility] to review and notify this worker. SW received call from requesting referral be sent to [facility] again. Referral placed via [employer]. Goal DC 03/20 Will continue to follow. NICKI ScottW
[2023-03-20 11:30] LABS: Bedside Glucose 161 mg/dL (74-106)
[2023-03-20] MEDS: Ferrous Sulfate 325 MG Tablet PO (11:47)
[2023-03-20] MEDS: Ascorbic Acid 500 MG Tablet 1000 MG PO (11:47)
[2023-03-20] MEDS: Insulin Lispro 100 UNIT/ML INSULN.PEN SC ×2 (11:47→16:48)
[2023-03-20 14:30] VITALS: BMI 33.6
[2023-03-20 16:46] LABS: Bedside Glucose 160 mg/dL (74-106)
[2023-03-20] MEDS: metFORMIN HCl 500 MG Tablet PO (16:48)
--- NOTE | 2023-03-20 17:34 | NURSING ---
pt discharged to [facility], [place], operated [facility]. report called to Sandrine
[2023-03-20 17:35] VITALS: BP 104/64; PULSE 76; RESP 18; TEMP 36.6; O2SAT 97
[2023-03-20 17:37] VITALS: BMI 33.6
== END 2023-03-20 17:39 | disposition skilled nursing facility (03) | DRG 560 ==
PROVIDERS: Admitting Provider Internal Medicine; PCP Family Medicine; Referring Provider Internal Medicine; Visit Provider Internal Medicine
DX: Z47.33 Aftercare following explantation of knee joint prosthesis (principal); I47.1 Supraventricular tachycardia; I13.0 Hypertensive heart and chronic kidney disease with heart failure and stage 1 through stage 4 chronic kidney disease, or unspecified chronic kidney disease; I42.8 Other cardiomyopathies; I50.42 Chronic combined systolic (congestive) and diastolic (congestive) heart failure; I48.11 Longstanding persistent atrial fibrillation; E13.22 Other specified diabetes mellitus with diabetic chronic kidney disease; I27.21 Secondary pulmonary arterial hypertension; G40.909 Epilepsy, unspecified, not intractable, without status epilepticus; E66.01 Morbid (severe) obesity due to excess calories; N18.32 Chronic kidney disease, stage 3b; Z79.4 Long term (current) use of insulin; E78.5 Hyperlipidemia, unspecified; K21.9 Gastro-esophageal reflux disease without esophagitis; F32.9 Major depressive disorder, single episode, unspecified; I25.10 Atherosclerotic heart disease of native coronary artery without angina pectoris; G47.33 Obstructive sleep apnea (adult) (pediatric); E83.42 Hypomagnesemia; D64.9 Anemia, unspecified; T84.53XD Infection and inflammatory reaction due to internal right knee prosthesis, subsequent encounter; R33.8 Other retention of urine; N40.1 Benign prostatic hyperplasia with lower urinary tract symptoms; Z79.82 Long term (current) use of aspirin; Z79.01 Long term (current) use of 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s; Y79.2 Prosthetic and other implants, materials and accessory orthopedic devices associated with adverse incidents; R39.11 Hesitancy of micturition; Z68.36 Body mass index [BMI] 36.0-36.9, adult; Z79.899 Other long term (current) drug therapy
CPT/HCPCS: 36415; 73560; 80048; 80053; 80202; 81001; 82306; 82962; 83036; 83735; 84100; 84145; 85025; 85027; 85652; 86140; 87086; 87088; 92507; 92523; 93005; 94668; 97110; 97112; 97129; 97130; 97162; 97164; 97166; 97530; 97535; 97542; 97802; J7050; A4216; J0696

== ENCOUNTER 2023-05-01 14:05 | Emergency (ER) | payer BC, MEDICARE, MEDICAID, SELFPAY ==
[2023-05-01 14:06] VITALS: BP 116/62; PULSE 83; RESP 18; TEMP 35.5; O2SAT 95
[2023-05-01 14:11] VITALS: BMI 32.6
--- NOTE | 2023-05-01 14:35 | ED.VIS.GI ---
HPI HPI - GI History of Present Illness Chief Complaint: Nausea/Vomiting/Diarrhea Narrative Narrative: 72-year-old male presenting with nausea, vomiting x1 week. Patient states he initially had some diarrhea which resolved. He states he did have some black stool but he was also taking Pepto-Bismol. He denies any bloody stool. Patient states he has diffuse crampy abdominal pain. Patient denies fevers or chills. He states that he has been able to hold down some food and fluids as well as some broth. He is making urine but denies dysuria or hematuria. His diarrhea has resolved. Patient feels generally weak. reports that he had blood work done about a week ago and his hemoglobin was 10.5 and it was about that time before when it was checked. Patient is on Eliquis secondary to A-fib. He is also diabetic but his sugars are in the 200s. [facility] Medical History Acute on chronic combined systolic (congestive) and diastolic (congestive) heart failure (02/02/20) Acute right MCA stroke Anemia Atrial tachycardia BPH (benign prostatic hyperplasia) Cerebral artery occlusion with cerebral infarction Chronic combined systolic and diastolic CHF (congestive heart failure) Chronic low back pain CKD (chronic kidney disease), stage III CVA (cerebral vascular accident) (12/2017) Depression Diabetes mellitus type 1.5, managed as type 1 Diabetes mellitus, type 2 Essential (primary) hypertension GERD (gastroesophageal reflux disease) History of CVA (cerebrovascular accident) History of iron deficiency History of non-ST elevation myocardial infarction (NSTEMI) (02/02/20) Hyperlipidemia Iron deficiency 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 (LBBB) 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 Longstanding persistent atrial fibrillation Non-ischemic cardiomyopathy Normochromic normocytic anemia NSVT (nonsustained ventricular tachycardia) Obesity Osteoarthritis Persistent atrial fibrillation Secondary pulmonary arterial hypertension Seizure disorder TIA (transient ischemic attack) (12/2017) Home Medications atorvastatin 80 mg tablet 80 mg PO QHS CHOLESTEROL 01/06/22 [History Last Taken 12/06/22] multivitamin (Daily Multi-Vitamin tablet) 1 tab PO DAILY Supplement 02/12/22 [History Last Taken 12/07/22] tamsulosin 0.4 mg capsule 0.4 mg PO BID Urine retention 02/12/22 [History Last Taken 12/07/22] aspirin 81 mg capsule 81 mg PO DAILY Heart health 02/25/22 [History Last Taken 12/07/22] buspirone 15 mg tablet 7.5 mg PO BID Mood 02/25/22 [History Last Taken 12/07/22] omeprazole 20 mg capsule,delayed release 40 mg PO DAILY GERD 02/25/22 [History Last Taken 12/07/22] zonisamide 25 mg capsule (Zonegran) 50 mg PO BID Ask 05/09/22 [History Last Taken 12/07/22] amlodipine 10 mg tablet 10 mg PO DAILY BP 07/03/22 [History Last Taken 12/06/22] lisinopril 10 mg tablet 10 mg PO DAILY BP 11/07/22 [History Last Taken 12/07/22] sertraline 50 mg tablet 100 mg PO DAILY Mood 12/07/22 [History Last Taken 12/07/22] furosemide 40 mg tablet 40 mg PO BID Fluid retention 01/11/23 [History Last Taken Unknown] amiodarone 200 mg tablet 200 mg PO DAILY BP 02/28/23 [History Last Taken Unknown] ascorbic acid (vitamin C) 500 mg tablet 1,000 mg PO LUNCH Supplement 02/28/23 [History Last Taken Unknown] carvedilol 3.125 mg tablet (Coreg) 3.125 mg PO BID BP 02/28/23 [History Last Taken Unknown] insulin glargine-yfgn 100 unit/mL (3 mL) subcutaneous pen 25 unit subcut QPM Blood sugar 02/28/23 [History Last Taken Unknown] magnesium chloride 64 mg (magnesium chloride) tablet,delayed release (Mag 64) 128 mg PO DAILY Supplement 02/28/23 [History Last Taken Unknown] acetaminophen 500 mg tablet 1,000 mg (2 x 500 mg) PO Q8H PRN PRN Pain 1-10 #1 TAB 03/15/23 [Rx Last Taken Unknown] apixaban 5 mg tablet 5 mg PO BID #1 TAB 03/15/23 [Rx Last Taken Unknown] calcium carbonate 200 mg calcium (500 mg) chewable tablet 500 mg (2.5 x 200 mg calcium (500 mg)) PO BIDCM #1 TAB 03/15/23 [Rx Last Taken Unknown] cholecalciferol (vitamin D3) 25 mcg (1,000 unit) tablet 50 mcg (2 x 25 mcg (1,000 unit)) PO DAILY #1 TAB 03/15/23 [Rx Last Taken Unknown] empagliflozin 10 mg tablet (Jardiance) 10 mg PO DAILY #1 TAB 03/15/23 [Rx Last Taken Unknown] fenofibrate nanocrystallized 48 mg tablet 48 mg PO DAILY #1 TAB 03/15/23 [Rx Last Taken Unknown] ferrous sulfate 325 mg (65 mg iron) tablet 325 mg PO DAILY supplement #30 tabs 03/15/23 [Rx Last Taken 12/07/22] finasteride 5 mg tablet 5 mg PO DAILY #1 TAB 03/15/23 [Rx Last Taken Unknown] insulin lispro 100 unit/mL subcutaneous pen (Humalog KwikPen (U-100) Insulin) 3 unit subcut TIDAC #1 mL 03/15/23 [Rx Last Taken Unknown] sennosides 8.6 mg-docusate sodium 50 mg tablet (Stool Softener-Stimulant Laxative) 2 tab PO BID #1 TAB 03/15/23 [Rx Last Taken Unknown] nutrition tx glu intol,lac-free,soy-fiber 0.06 gram-1.2 kcal/mL liquid (Glucerna 1.2 David) 120 ml PO QHS 04/30/23 [History Last Taken Unknown] ondansetron 4 mg disintegrating tablet 4 mg PO Q8H PRN PRN Nausea #20 tabs 05/01/23 [Rx Last Taken Unknown] sucralfate 100 mg/mL oral suspension (Carafate) 10 ml PO BID PRN epigastric pain #200 mL 05/01/23 [Rx Last Taken Unknown] Allergy/AdvReac Type Severity Reaction Status Date / Time rofecoxib Allergy Hives Verified 05/01/23 14:07 Family History Mother Heart disease Sister Heart disease Myocardial infarction CVA (cerebral vascular accident) Diabetes Brother CVA (cerebral vascular accident) Surgical History History of back surgery History of knee replacement, total Social History Smoking Status: Never smoker alcohol intake: current alcohol intake frequency: holidays/special occasions only Alcohol type: beer substance use type: does not use caffeine: Yes Type: coffee Number of servings: 2 ROS ROS ED Constitutional Constitutional ED: Denies chills, fever(s) or sweats Eyes Eyes: Denies blurry vision or change in vision ENT ENT ED: Denies ear pain or sore throat Cardiovascular Cardiovascular: Denies chest pain, palpitations or racing heartbeat Respiratory/Chest Respiratory/Chest: Denies cough, dyspnea or sputum Gastrointestinal Gastrointestinal: Reports abdominal pain, diarrhea, melena, nausea and vomiting Genitourinary Genitourinary ED: Denies dysuria, hematuria or urinary frequency Musculoskeletal Musculoskeletal: Denies arthralgias, myalgias or neck pain Integumentary Denies abscess, Abrasions or rash Neurologic Neurologic: Denies headache(s), paresthesias or weakness Psychiatric Psychiatric: Denies anxiety, depression, suicidal ideation or suicidal thoughts Endocrine Endocrinology: Denies polydipsia or polyuria EXAM Physical Exam Const Vital Signs: 05/01/23 14:06 Temperature 96 F L Temperature Source Temporal Pulse Rate 83 Respiratory Rate 18 Blood Pressure 116/62 Blood Pressure Mean 80 Pulse Ox 95 Oxygen Delivery Method Room Air Positive well nourished General Appearance ED: NAD and pallor HEENT Reports moist mucous membranes normocephalic Eyes PERRL and EOMs intact bilaterally General Eye ED: Yes pale conjunctiva Resp normal respiratory effort and clear to auscultation bilaterally Auscultation: Negative for rales, rhonchi or wheezes GI non-tender Back/Spine no CVA tenderness Neuro CN's II-XII intact bilaterally, moves all extremities and no sensory deficits noted Sensorium / Orientation: alert Motor Exam: general weakness Psych mental status grossly normal and thought process normal Skin no wounds General Skin Exam: pallor; Negative for jaundice MDM MDM MDM Narrative Medical decision making narrative: Patient presenting with intermittent nausea and vomiting and diarrhea for 1 month. He has not had a fever. He is currently pain-free. Differential includes gastritis, gastroenteritis, diverticulitis, colitis, dehydration, electrolyte normalities, UTI, pyelonephritis. Patient medicated with Zofran and IV fluids. CBC was obtained to assess white blood cell count, hemoglobin, platelets. CMP to assess liver function, renal function, electrolytes. Base to assess for pancreatitis. Urinalysis to assess for UTI. CBC shows a leukocytosis 17.1. Hemoglobin is slightly increased at 10.6 however the patient is dehydrated and this is likely hemoconcentrated. No evidence of occult bleeding. Creatinine elevated at 3.12 and his baseline is between 2.25 and 6. He was given IV fluids. Urinalysis negative for infection. I obtained a CT of the abdomen pelvis without contrast which shows no acute pathology. There is cholelithiasis however is LFTs are normal. His lipase is also normal. He does not have any tenderness in the right upper quadrant. On reevaluation he is feeling better. I did give him some Zofran and some Carafate for home. I recommended that he follow-up with his PCP to ensure resolution. Return precautions discussed. Impression: 1. Abdominal pain 2. Nausea/vomiting 3. Diarrhea 4. Dehydration Lab Data Attestation: I reviewed the patient's lab results. Labs: Laboratory Results - last 24 hr 05/01/23 05/01/23 14:24 15:26 WBC 17.1 H RBC 3.41 L Hgb 10.6 L Hct 31.6 L MCV 92.7 MCH 31.1 MCHC 33.5 RDW Std Deviation 45.0 H RDW Coeff of Whitney 13.3 Plt Count 216 MPV 11.6 Immature Gran % (Auto) 0.400 Neut % (Auto) 88.3 H Lymph % (Auto) 1.7 L Otero % (Auto) 9.2 Eos % (Auto) 0.2 Baso % (Auto) 0.2 Absolute Neuts (auto) 15.2 H Absolute Lymphs (auto) 0.29 L Nucleated RBC % 0 Differential Comment COMMENT Diff Path Review May foll Sodium 139 Potassium 3.9 Chloride 108 H Carbon Dioxide 22.0 Anion Gap 9 BUN 45 H Creatinine 3.12 H Estim Creat Clear Calc 21.09 Est GFR (MDRD) Af Amer 25 L Est GFR (MDRD) Non-Af 21 L BUN/Creatinine Ratio 14.4 Glucose 235 H Calcium 9.1 Total Bilirubin 0.50 AST 14 L ALT 18 Alkaline Phosphatase 61 Total Protein 7.7 Albumin 3.8 Globulin 3.9 Albumin/Globulin Ratio 1.0 Lipase 32 Urine Color Yellow Urine Clarity Clear Urine pH 5.0 Ur Specific [place] 1.015 Urine Protein 15 H Urine Glucose (UA) 1000 H Urine Ketones Negative Urine Occult Blood Negative Urine Nitrite Negative Urine Bilirubin Negative Urine Urobilinogen Normal Ur Leukocyte Esterase 100 H Urine RBC 0 SEEN Urine WBC 0-5 SEEN Ur Squamous Epith Cells 0 SEEN Urine Bacteria 0 SEEN Urine Mucus 0 SEEN Radiography Diagnostic Testing: Clinical Impression(s) from Imaging Studies Abdomen/Pelvis CT 05/01/23 15:45 IMPRESSION: 1. No acute abdominal or pelvic abnormality. 2. Cholelithiasis. 3. Small hiatal hernia. 4. Diverticulosis coli. Electronically Signed: Calvin Guaman MD at 16:19 EDT , Discharge Plan Triage Chief Complaint: Nausea/Vomiting/Diarrhea ED Provider: Vu Bobby Dx/Rx/DC Orders Instructions: ED Abdominal Pain Unkn Cause Male..., ED Vomiting and Diarrhea ... Prescriptions: New ondansetron 4 mg tablet,disintegrating 4 mg PO Q8H PRN PRN (Reason: Nausea) Qty: 20 0RF sucralfate [Carafate] 100 mg/mL suspension 10 ml PO BID PRN (Reason: epigastric pain) Qty: 200 0RF No Action multivitamin [Daily Multi-Vitamin] Tablet 1 tab PO DAILY tamsulosin 0.4 mg capsule 0.4 mg PO BID lisinopril 10 mg tablet 10 mg PO DAILY amlodipine 10 mg tablet 10 mg PO DAILY Hold Instructions: Resume on 12/19/22. Please discuss with your primary care physician prior to resuming furosemide 40 mg tablet 40 mg PO BID Glucerna 1.2 David 0.06-1.2 gram-kcal/mL liquid 120 ml PO QHS atorvastatin 80 mg Tablet 80 mg PO QHS buspirone 15 mg Tablet 7.5 mg PO BID Rx Instructions: 1/2 TAB BID FOR 2 WEEKS THEN 1 TAB BID aspirin 81 mg Capsule 81 mg PO DAILY omeprazole 20 mg capsule,delayed release(DR/EC) 40 mg PO DAILY zonisamide [Zonegran] 25 mg capsule 50 mg PO BID sertraline 50 mg tablet 100 mg PO DAILY insulin glargine-yfgn 100 unit/mL (3 mL) Insulin Pen 25 unit SUBCUT QPM amiodarone 200 mg tablet 200 mg PO DAILY carvedilol [Coreg] 3.125 mg tablet 3.125 mg PO BID ascorbic acid (vitamin C) 500 mg tablet 1,000 mg PO LUNCH Mag 64 64 mg tablet,delayed release (DR/EC) 128 mg PO DAILY fenofibrate nanocrystallized 48 mg Tablet 48 mg PO DAILY Qty: 1 0RF calcium carbonate 200 mg calcium (500 mg) Tablet,Chewable 500 mg PO BIDCM Qty: 1 0RF Jardiance 10 mg Tablet 10 mg PO DAILY Qty: 1 0RF finasteride 5 mg Tablet 5 mg PO DAILY Qty: 1 0RF insulin lispro [Humalog KwikPen Insulin] 100 unit/mL Insulin Pen 3 unit subcut TIDAC Qty: 1 0RF Protocol: 4. Sliding Scale Insulin High-Med Dosing Condition: 150-199 mg/dl = 2 units Condition: 200-259 mg/dl = 4 units Condition: 260-324 mg/dl = 6 units Condition: 325-374 mg/dl = 8 units Condition: 375-409 mg/dl = 10 units Condition: 410-449 mg/dl = 11 units Condition: Greater than 449 call physician Protocol Text: - Use for Total Daily Dose of Insulin 56-80 units - Patient who are insulin resistant or septic HIGH MEDIUM DOSING ALGORITHM sennosides-docusate sodium [Stool Softener-Stimulant Laxat] 8.6-50 mg Tablet 2 tab PO BID Qty: 1 0RF cholecalciferol (vitamin D3) 25 mcg (1,000 unit) Tablet 50 mcg PO DAILY Qty: 1 0RF acetaminophen 500 mg tablet 1,000 mg PO Q8H PRN PRN (Reason: Pain 1-10) Qty: 1 0RF ferrous sulfate 325 mg (65 mg iron) tablet 325 mg PO DAILY Qty: 30 0RF Rx Instructions: give this at noon daily with the ferrous sulfate. apixaban 5 mg tablet 5 mg PO BID Qty: 1 0RF Primary Care Provider: Lester Jarvis Referrals: Lester Jarvis MD [Primary Care Provider] - Disposition Disposition: Home, Self Care
[2023-05-01 14:47] LABS: Absolute Lymphocyte Count 0.29 X10^3/uL (0.83-4.51); Absolute Neutrophil Count 15.2 X10^3/uL (2.0-7.7); Basophil# 0.04 X10^3/uL; Basophil% 0.2 % (0-1); Eosinophil# 0.03 X10^3/uL; Eosinophils% 0.2 % (0-5); Hematocrit 31.6 % (40-54); Hemoglobin 10.6 g/dL (13.0-16.5); Lymphocyte # 0.29 X10^3/ul (0.83-4.51); Lymphocyte % 1.7 % (19-41); Mean Corp Hgb Conc 33.5 g/dL (32-36); Mean Corpuscular Hgb 31.1 pg (27.0-32.0); Mean Corpuscular Volume 92.7 fL (80-94); Mean Platelet Vol. 11.6 fl (6.2-12.0); Monocyte# 1.57 X10^3/uL; Monocyte% 9.2 % (0-10); NRBC Flagged by Analyzer 0 % (0-5); Neutrophil # 15.15 X10^3/uL (2.7-7.7); Neutrophil % 88.3 % (47-70); POSITIVE DIFFERENTIAL YES; Platelet Count 216 K/mm3 (150-450); RBC Distribution Width CV 13.3 % (11.6-14.6); Red Blood Count 3.41 M/mm3 (4.6-6.2); White Blood Count 17.1 K/mm3 (4.4-11.0)
[2023-05-01] MEDS: Ondansetron 4 MG/2 ML Vial IV (14:52)
[2023-05-01] MEDS: 0.9% Normal Saline 1,000 ML 1000 ML IV (14:52)
[2023-05-01 14:57] LABS: Differential Indicated SCAN CRITERIA MET
[2023-05-01 15:03] LABS: AST(SGOT) 14 U/L (15-37); Alanine Aminotransfer ALT/SGPT 18 U/L (16-61); Albumin, Serum 3.8 g/dL (3.2-5.0); Alkaline Phosphatase 61 U/L (45-117); Anion Gap 9 (5-15); BUN 45 mg/dL (7-18); BUN/Creat Ratio 14.4 RATIO (10-20); Calcium,Total 9.1 mg/dL (8.5-10.1); Chloride 108 mmol/L (98-107); Creatinine, Serum 3.12 mg/dL (0.70-1.30); EST Glomerular Filtration Rate 21 mL/min (>60); Est Glom Filt Rate - Afr Amer 25 mL/min (>60); Estimated Creatinine Clearance 21.09 ml/min; Globulin 3.9 g/dL (2.2-4.2); Glucose 235 mg/dL (74-106); Lipase 32 U/L (13-75); Potassium 3.9 mmol/L (3.5-5.1); Protein, Total 7.7 g/dL (6.4-8.2); Sodium Level 139 mmol/L (136-145)
[2023-05-01 15:41] LABS: Bacteria 0 SEEN /hpf (None Seen); Mucous, Urine 0 SEEN /hpf (<or=2+); Red Blood Cells-Urine 0 SEEN /hpf (0-5); Squamous Epithelial Cells - UA 0 SEEN /hpf (0-5)
--- NOTE | 2023-05-01 15:45 | CT_ITS ---
EXAM: CT ABDOMEN AND PELVIS WITHOUT INTRAVENOUS CONTRAST CLINICAL INDICATION: abdominal pain TECHNIQUE: Helically acquired images were obtained of the abdomen and pelvis without intravenous contrast. This CT exam was performed using one or more of the following dose reduction techniques: automated exposure control, adjustment of the mA and/or kV according to patient size, and/or use of iterative reconstruction technique. COMPARISON: No relevant prior studies available. FINDINGS: LOWER THORAX: Small hiatal hernia. ABDOMEN: LIVER: Normal. Homogeneous. GALLBLADDER AND BILE DUCTS: Calcified gallstones. PANCREAS: Normal. No focal cystic mass. SPLEEN: Normal. Normal size without focal cystic or solid mass. ADRENALS: Normal. No nodules. KIDNEYS AND URETERS: Normal. No hydronephrosis. STOMACH AND BOWEL: Diverticulosis of the colon noted without evidence of acute diverticulitis. PELVIS: APPENDIX: Appendix is visualized and normal in appearance. BLADDER: Normal. REPRODUCTIVE: Unremarkable as visualized. No mass. ABDOMEN and PELVIS: INTRAPERITONEAL SPACE: Normal. No ascites or other fluid collection. No free air. BONES/JOINTS: No suspicious lytic or blastic abnormality. SOFT TISSUES: Small fat-containing umbilical hernia is present. VASCULATURE: Bilateral renal sinus calcifications. Arterial nature. Abdominal aorta is non-dilated. LYMPH NODES: Normal. No enlarged lymph nodes. CT/Abdomen/Pelvis without Cont IMPRESSION: 1. No acute abdominal or pelvic abnormality. 2. Cholelithiasis. 3. Small hiatal hernia. 4. Diverticulosis coli. Electronically Signed: Calvin Guaman MD at 16:19 EDT ,
[2023-05-01 15:50] LABS: Color, Urine Yellow (Yellow); Glucose, Dipstick 1000 mg/dl (Normal); Ketone-Dipstick Negative (Negative); Leukocyte Esterase-Dipstick 100 /ul (Negative); Nitrite-Dipstick Negative (Negative); Occult Blood-Urine Negative /ul (Negative); Protein-Dipstick 15 mg/dl (Negative); Specific Gravity, Urine 1.015 (1.002-1.030); Urine Bilirubin Dipstick Negative (Negative); Urine Clarity Clear (Clear); Urine Urobilinogen Normal (Normal)
[2023-05-01 15:58] LABS: White Blood Cells 0-5 SEEN /hpf (0-5)
[2023-05-01 16:53] VITALS: BP 148/78; PULSE 76; RESP 18; TEMP 36.6; O2SAT 99
[2023-05-01 16:54] VITALS: BP 138/76; PULSE 77; RESP 18
[2023-05-02 15:17] LABS: Pathologist Review Reviewed
== END 2023-05-01 16:56 | disposition home or self-care (01) ==
PROVIDERS: Emergency Provider Student in an Organized Health Care Education/Training Program; PCP Family Medicine; Visit Provider Student in an Organized Health Care Education/Training Program
DX: E86.0 Dehydration (principal); I50.42 Chronic combined systolic (congestive) and diastolic (congestive) heart failure; I13.0 Hypertensive heart and chronic kidney disease with heart failure and stage 1 through stage 4 chronic kidney disease, or unspecified chronic kidney disease; E13.22 Other specified diabetes mellitus with diabetic chronic kidney disease; I48.19 Other persistent atrial fibrillation; G40.909 Epilepsy, unspecified, not intractable, without status epilepticus; Z79.4 Long term (current) use of insulin; N18.30 Chronic kidney disease, stage 3 unspecified; R19.7 Diarrhea, unspecified; E78.5 Hyperlipidemia, unspecified; Z79.01 Long term (current) use of 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s; Z86.73 Personal history of transient ischemic attack (TIA), and cerebral infarction without residual deficits; I25.2 Old myocardial infarction; N40.0 Benign prostatic hyperplasia without lower urinary tract symptoms; Z79.899 Other long term (current) drug therapy; Z79.82 Long term (current) use of aspirin; F32.A Depression, unspecified; K21.9 Gastro-esophageal reflux disease without esophagitis; Z96.659 Presence of unspecified artificial knee joint; R11.2 Nausea with vomiting, unspecified; R10.9 Unspecified abdominal pain
CPT/HCPCS: 74176; 80053; 81001; 83690; 85025; 96361; 96374; 99282; J7030; A4216; J2405

== ENCOUNTER → 2023-10-31 | Outpatient (CLI) | payer MEDICARE, MEDICAID, SELFPAY ==
--- NOTE | 2023-10-31 12:37 | NM_ITS ---
CLINICAL: 73-year-old male with history of chronic nausea. SEMI-SOLID PHASE 99m Tc SULFUR COLLOID GASTRIC EMPTYING STUDY COMPARISON: None available FINDINGS: The patient was administered 1.2 mCi of 99m Tc sulfur colloid mixed with oatmeal and consumed per os. Image acquisitions in the anterior and posterior projections were obtained for 60 minutes. There is prompt visualization of the stomach. There is no gastroesophageal reflux identified. The T ? linear fit was calculated to be 17.22 minutes, (Normal: 12-56 minutes). NM/Gastric Emptying Study IMPRESSION: 1. NORMAL 99m Tc sulfur colloid semi-solid phase (oatmeal) gastric emptying imaging examination. A. There is normal and preserved semi-solid phase gastric emptying compared to normal controls. (Gemma et al, J Nucl Med Tech 38: 186, 2010). Electronically Signed: Fausto Weeks DO at 23:42 EST ,
== END | disposition home or self-care (01) ==
LOC: NM 12:29
PROVIDERS: PCP Family Medicine; Referring Provider Family Medicine; Visit Provider Family Medicine
DX: R11.2 Nausea with vomiting, unspecified (principal); E11.3219 Type 2 diabetes mellitus with mild nonproliferative diabetic retinopathy with macular edema, unspecified eye
CPT/HCPCS: 78264; A9541

== ENCOUNTER → 2023-11-18 | Outpatient (CLI) | payer MEDICARE, MEDICAID, SELFPAY ==
--- NOTE | 2023-11-18 14:58 | RAD_ITS ---
STUDY: X-RAY CHEST REASON FOR EXAM: Male, 73 years old. Shortness of breath, leg swelling TECHNIQUE: PA and lateral views of the chest. COMPARISON: Comparison is made with prior study dated November 29, 2022. FINDINGS: Spinal cord stimulator device electrodes are seen. There is evidence of vascular congestion and mild CHF. There is no demonstrated pleural abnormality. There is borderline cardiomegaly. Normal mediastinum and daniel. Normal visualized pulmonary arteries. There is atherosclerotic calcification of the aortic arch with tortuosity. There are diffuse degenerative changes of the visualized thoracic spine. There is degenerative osteoarthritis of the bilateral shoulders. There is no demonstrated abnormality of the visualized soft tissue structures of the upper abdomen. RAD/Chest PA and Lateral IMPRESSION: Vascular congestion and mild degree of CHF. Electronically Signed: Hugo Gross MD at 15:19 EDT ,
[2023-11-18 15:07] LABS: Absolute Lymphocyte Count 0.79 X10^3/uL (0.83-4.51); Basophil# 0.05 X10^3/uL; Basophil% 0.8 % (0-1); Eosinophil# 0.33 X10^3/uL; Eosinophils% 5.4 % (0-5); Hematocrit 27.6 % (40-54); Hemoglobin 8.7 g/dL (13.0-16.5); Lymphocyte # 0.79 X10^3/ul (0.83-4.51); Mean Corp Hgb Conc 31.5 g/dL (32-36); Mean Corpuscular Volume 98.2 fL (80-94); Mean Platelet Vol. 11.8 fl (6.2-12.0); Monocyte# 0.85 X10^3/uL; Monocyte% 13.9 % (0-10); NRBC Flagged by Analyzer 0 % (0-5); Neutrophil # 4.04 X10^3/uL (2.7-7.7); Neutrophil % 66.2 % (47-70); Platelet Count 192 K/mm3 (150-450); RBC Distribution Width CV 14.2 % (11.6-14.6); Red Blood Count 2.81 M/mm3 (4.6-6.2); White Blood Count 6.1 K/mm3 (4.4-11.0)
[2023-11-18 15:42] LABS: Anion Gap 6 (5-15); BUN 48 mg/dL (7-18); BUN/Creat Ratio 17.5 RATIO (10-20); Calcium,Total 9.2 mg/dL (8.5-10.1); Chloride 109 mmol/L (98-107); Creatinine, Serum 2.75 mg/dL (0.70-1.30); EST Glomerular Filtration Rate 24 mL/min (>60); Est Glom Filt Rate - Afr Amer 29 mL/min (>60); Glucose 93 mg/dL (74-106); Potassium 4.3 mmol/L (3.5-5.1); Sodium Level 144 mmol/L (136-145)
[2023-11-18 15:46] LABS: BNP,B-Type NATRIURETIC PEPTIDE 202.2 pg/mL (0-100)
== END | disposition home or self-care (01) ==
LOC: LAB 14:40
PROVIDERS: PCP Family Medicine; Referring Provider Physician Assistant Medical; Visit Provider Physician Assistant Medical
DX: R06.02 Shortness of breath (principal); R60.0 Localized edema
CPT/HCPCS: 36415; 71046; 80048; 83880; 85025

== ENCOUNTER → 2024-01-07 | Outpatient (CLI) | payer MEDICARE, MEDICAID, SELFPAY ==
[2024-01-07 09:56] LABS: Hematocrit 25.3 % (40-54); Hemoglobin 8.3 g/dL (13.0-16.5); Mean Corp Hgb Conc 32.8 g/dL (32-36); Mean Corpuscular Hgb 32.3 pg (27.0-32.0); Mean Corpuscular Volume 98.4 fL (80-94); Mean Platelet Vol. 12.3 fl (6.2-12.0); Platelet Count 174 K/mm3 (150-450); RBC Distribution Width CV 13.1 % (11.6-14.6); RBC Distribution Width SD 46.6 fl (35.1-43.9); Red Blood Count 2.57 M/mm3 (4.6-6.2); White Blood Count 6.8 K/mm3 (4.4-11.0)
[2024-01-07 10:10] LABS: Protein, Urine (Random) 10.2 mg/dL (<11.9); Protein:Creat Ratio 225 mg/g CRE (0-200)
[2024-01-07 10:20] LABS: ALB/GLOB Ratio 1.3 RATIO (0.9-2.4); AST(SGOT) 23 U/L (15-37); Alanine Aminotransfer ALT/SGPT 20 U/L (16-61); Albumin, Serum 3.9 g/dL (3.2-5.0); Alkaline Phosphatase 39 U/L (45-117); Anion Gap 8 (5-15); BUN 89 mg/dL (7-18); BUN/Creat Ratio 20.4 RATIO (10-20); Calcium,Total 9.3 mg/dL (8.5-10.1); Chloride 104 mmol/L (98-107); Creatinine, Serum 4.37 mg/dL (0.70-1.30); EST Glomerular Filtration Rate 14 mL/min (>60); Est Glom Filt Rate - Afr Amer 17 mL/min (>60); Globulin 3.1 g/dL (2.2-4.2); Glucose 146 mg/dL (74-106); Sodium Level 140 mmol/L (136-145)
[2024-01-07 10:23] LABS: Vitamin D,25 Hydroxy 34.9 ng/mL
[2024-01-07 11:12] LABS: PTHIN 101.5 pg/mL (18.4-80.1)
== END | disposition home or self-care (01) ==
PROVIDERS: PCP Family Medicine; Referring Provider Internal Medicine Nephrology; Visit Provider Internal Medicine Nephrology
DX: N18.4 Chronic kidney disease, stage 4 (severe) (principal); D50.9 Iron deficiency anemia, unspecified
CPT/HCPCS: 36415; 80053; 82306; 82570; 83970; 84100; 84156; 85027

== ENCOUNTER → 2024-01-14 | Outpatient (CLI) | payer MEDICARE, MEDICAID, SELFPAY ==
[2024-01-14 16:09] LABS: Anion Gap 8 (5-15); BUN 73 mg/dL (7-18); Calcium,Total 9.2 mg/dL (8.5-10.1); Chloride 105 mmol/L (98-107); Creatinine, Serum 3.85 mg/dL (0.70-1.30); EST Glomerular Filtration Rate 16 mL/min (>60); Est Glom Filt Rate - Afr Amer 20 mL/min (>60); Glucose 227 mg/dL (74-106); Potassium 4.1 mmol/L (3.5-5.1); Sodium Level 140 mmol/L (136-145)
== END | disposition home or self-care (01) ==
LOC: MTLAB 14:06
PROVIDERS: PCP Family Medicine; Referring Provider Internal Medicine Nephrology; Visit Provider Internal Medicine Nephrology
DX: N18.4 Chronic kidney disease, stage 4 (severe) (principal)
CPT/HCPCS: 36415; 80048

== ENCOUNTER → 2024-01-23 | Outpatient (CLI) | payer MEDICARE, MEDICAID, SELFPAY ==
[2024-01-23 10:33] LABS: Absolute Lymphocyte Count 0.83 X10^3/uL (0.83-4.51); Absolute Neutrophil Count 5.9 X10^3/uL (2.0-7.7); Basophil# 0.06 X10^3/uL; Basophil% 0.7 % (0-1); Eosinophils% 4.9 % (0-5); Hematocrit 26.9 % (40-54); Hemoglobin 8.7 g/dL (13.0-16.5); Lymphocyte # 0.83 X10^3/ul (0.83-4.51); Lymphocyte % 10.1 % (19-41); Mean Corp Hgb Conc 32.3 g/dL (32-36); Mean Corpuscular Hgb 32.1 pg (27.0-32.0); Mean Corpuscular Volume 99.3 fL (80-94); Mean Platelet Vol. 11.9 fl (6.2-12.0); Monocyte# 0.94 X10^3/uL; Monocyte% 11.5 % (0-10); NRBC Flagged by Analyzer 0 % (0-5); Neutrophil # 5.92 X10^3/uL (2.7-7.7); Neutrophil % 72.4 % (47-70); Platelet Count 213 K/mm3 (150-450); RBC Distribution Width CV 12.8 % (11.6-14.6); RBC Distribution Width SD 46.4 fl (35.1-43.9); Red Blood Count 2.71 M/mm3 (4.6-6.2); White Blood Count 8.2 K/mm3 (4.4-11.0)
[2024-01-23 11:24] LABS: ALB/GLOB Ratio 1.1 RATIO (0.9-2.4); AST(SGOT) 19 U/L (15-37); Alanine Aminotransfer ALT/SGPT 19 U/L (16-61); Albumin, Serum 3.9 g/dL (3.2-5.0); Alkaline Phosphatase 45 U/L (45-117); Anion Gap 7 (5-15); BUN 61 mg/dL (7-18); BUN/Creat Ratio 16.2 RATIO (10-20); Calcium,Total 9.3 mg/dL (8.5-10.1); Chloride 106 mmol/L (98-107); Creatinine, Serum 3.76 mg/dL (0.70-1.30); EST Glomerular Filtration Rate 17 mL/min (>60); Est Glom Filt Rate - Afr Amer 20 mL/min (>60); Globulin 3.6 g/dL (2.2-4.2); Glucose 159 mg/dL (74-106); Potassium 3.8 mmol/L (3.5-5.1); Protein, Total 7.5 g/dL (6.4-8.2); Sodium Level 140 mmol/L (136-145); Thyroid Stim Hormone (TSH) 2.33 uIU/mL (0.358-3.74)
== END | disposition home or self-care (01) ==
PROVIDERS: PCP Family Medicine; Referring Provider Internal Medicine Nephrology; Visit Provider Nurse Practitioner Gerontology
DX: N18.4 Chronic kidney disease, stage 4 (severe) (principal); R53.83 Other fatigue; Z79.899 Other long term (current) drug therapy
CPT/HCPCS: 36415; 80053; 84443; 85025

== ENCOUNTER → 2024-02-17 | Outpatient (CLI) | payer MEDICARE, MEDICAID, SELFPAY ==
[2024-02-17 17:56] LABS: Anion Gap 7 (5-15); BUN 57 mg/dL (7-18); Calcium,Total 9.5 mg/dL (8.5-10.1); Chloride 104 mmol/L (98-107); Creatinine, Serum 3.79 mg/dL (0.70-1.30); EST Glomerular Filtration Rate 17 mL/min (>60); Est Glom Filt Rate - Afr Amer 20 mL/min (>60); Glucose 120 mg/dL (74-106); Potassium 4.1 mmol/L (3.5-5.1); Sodium Level 138 mmol/L (136-145)
== END | disposition home or self-care (01) ==
PROVIDERS: PCP Family Medicine; Referring Provider Internal Medicine Nephrology; Visit Provider Internal Medicine Nephrology
DX: N18.4 Chronic kidney disease, stage 4 (severe) (principal)
CPT/HCPCS: 36415; 80048

== ENCOUNTER → 2024-03-24 | Outpatient (CLI) | payer MEDICARE, MEDICAID, SELFPAY ==
[2024-03-24 17:57] LABS: Anion Gap 7 (5-15); BUN 60 mg/dL (7-18); BUN/Creat Ratio 15.2 RATIO (10-20); Calcium,Total 9.3 mg/dL (8.5-10.1); Chloride 105 mmol/L (98-107); Creatinine, Serum 3.96 mg/dL (0.70-1.30); EST Glomerular Filtration Rate 16 mL/min (>60); Est Glom Filt Rate - Afr Amer 19 mL/min (>60); Glucose 154 mg/dL (74-106); Potassium 4.3 mmol/L (3.5-5.1); Sodium Level 142 mmol/L (136-145)
== END | disposition home or self-care (01) ==
LOC: MTLAB 15:01
PROVIDERS: PCP Family Medicine; Referring Provider Internal Medicine Nephrology; Visit Provider Internal Medicine Nephrology
DX: N18.4 Chronic kidney disease, stage 4 (severe) (principal)
CPT/HCPCS: 36415; 80048

== ENCOUNTER → 2024-04-01 | Outpatient (CLI) | payer MEDICARE, MEDICAID, SELFPAY | END | disposition home or self-care (01) | PROVIDERS: PCP Family Medicine; Referring Provider Nurse Practitioner Gerontology; Visit Provider Nurse Practitioner Gerontology | DX: R53.83 Other fatigue (principal); I48.19 Other persistent atrial fibrillation; R00.1 Bradycardia, unspecified | CPT/HCPCS: 93225; 93226 ==

== ENCOUNTER 2024-04-24 13:03 | Outpatient (RCR) | payer MEDICARE, MEDICAID, SELFPAY ==
[2024-04-24 15:19] LABS: Absolute Lymphocyte Count 0.49 X10^3/uL (0.83-4.51); Absolute Neutrophil Count 4.6 X10^3/uL (2.0-7.7); Basophil# 0.05 X10^3/uL; Basophil% 0.8 % (0-1); Eosinophil# 0.36 X10^3/uL; Eosinophils% 5.7 % (0-5); Hematocrit 29.7 % (40-54); Hemoglobin 9.4 g/dL (13.0-16.5); Lymphocyte # 0.49 X10^3/ul (0.83-4.51); Lymphocyte % 7.8 % (19-41); Mean Corp Hgb Conc 31.6 g/dL (32-36); Mean Corpuscular Hgb 31.6 pg (27.0-32.0); Mean Platelet Vol. 12.1 fl (6.2-12.0); Monocyte# 0.77 X10^3/uL; Monocyte% 12.2 % (0-10); NRBC Flagged by Analyzer 0 % (0-5); Neutrophil # 4.63 X10^3/uL (2.7-7.7); Neutrophil % 73.2 % (47-70); POSITIVE DIFFERENTIAL YES; Platelet Count 203 K/mm3 (150-450); RBC Distribution Width CV 13.1 % (11.6-14.6); Red Blood Count 2.97 M/mm3 (4.6-6.2); White Blood Count 6.3 K/mm3 (4.4-11.0)
[2024-04-24 15:43] LABS: BNP,B-Type NATRIURETIC PEPTIDE 139.9 pg/mL (0-100)
[2024-04-24 15:49] LABS: Anion Gap 8 (5-15); BUN 64 mg/dL (7-18); BUN/Creat Ratio 18.3 RATIO (10-20); Calcium,Total 9.8 mg/dL (8.5-10.1); Chloride 106 mmol/L (98-107); EST Glomerular Filtration Rate 18 mL/min (>60); Est Glom Filt Rate - Afr Amer 22 mL/min (>60); Glucose 81 mg/dL (74-106); Potassium 3.9 mmol/L (3.5-5.1); Sodium Level 143 mmol/L (136-145)
[2024-04-27 15:07] LABS: Erythropoietin 13.3 mIU/mL (2.6-18.5)
== END 2024-04-24 18:00 | disposition home or self-care (01) ==
LOC: MTLAB 13:03
PROVIDERS: Nurse Practitioner Family; PCP Family Medicine; Referring Provider Internal Medicine Nephrology; Visit Provider Internal Medicine Nephrology
DX: N18.4 Chronic kidney disease, stage 4 (severe) (principal); I42.8 Other cardiomyopathies; R06.09 Other forms of dyspnea
CPT/HCPCS: 36415; 80048; 82668; 83880; 85025

== ENCOUNTER 2024-05-21 11:47 | Outpatient (RCR) | payer MEDICARE, MEDICAID, SELFPAY ==
[2024-05-21 13:38] LABS: Anion Gap 4 (5-15); BUN 48 mg/dL (7-18); BUN/Creat Ratio 16.3 RATIO (10-20); Calcium,Total 9.9 mg/dL (8.5-10.1); Chloride 107 mmol/L (98-107); Creatinine, Serum 2.94 mg/dL (0.70-1.30); EST Glomerular Filtration Rate 22 mL/min (>60); Est Glom Filt Rate - Afr Amer 27 mL/min (>60); Glucose 94 mg/dL (74-106); Potassium 3.7 mmol/L (3.5-5.1); Sodium Level 143 mmol/L (136-145)
== END 2024-05-21 18:00 | disposition home or self-care (01) ==
LOC: MTLAB 11:47
PROVIDERS: PCP Family Medicine; Referring Provider Internal Medicine Nephrology; Visit Provider Internal Medicine Nephrology
DX: N18.4 Chronic kidney disease, stage 4 (severe) (principal)
CPT/HCPCS: 36415; 80048

== ENCOUNTER → 2024-05-21 | Outpatient (CLI) | payer MEDICARE, MEDICAID, SELFPAY ==
--- NOTE | 2024-05-21 10:47 | ECHOCS_ITS ---
Reason For Study: CHF Procedure This was a 2D Doppler, Color Flow transthoracic echocardiogram. The study was technically difficult. Contrast injection was performed. Exam performed in department. Left Ventricle Normal LV size. Left ventricular systolic function is normal. The left ventricular ejection fraction is 50 %. Stage 2 diastolic dysfunction. No regional wall motion abnormalities noted. Right Ventricle Normal RV size. Normal systolic function. Atria Normal left atrium. Normal right atrium. Mitral Valve Normal mitral valve. Aortic Valve Trisinus/trileaflet aortic valve. Pulmonic Valve Normal pulmonic valve. Great Vessels Mildly dilated aortic root. The pulmonary artery is normal size. Inferior vena cava collapse with respiration. Pericardium/Pleural No pericardial effusion. Medication 22 gauge I.V. with prn adaptor inserted into left arm. Diluted definity 1ml given slow IV push to enhance endocardial definition. MMode/2D Measurements & Calculations LVIDd: 5.5 cm IVSd: 1.2 cm LVOT diam: 1.9 cm LVIDs: 4.4 cm LVPWd: 1.2 cm LVOT area: 2.8 cm2 FS: 20.5 % asc Aorta Diam: 4.0 cm LAV(MOD-bp): 74.5 ml LVAd ap4: 44.1 cm2 LAV(MOD-bp) Indexed: 34.0 ml/m2 LVLd ap4: 9.5 cm LAV(MOD-sp2): 95.1 ml EDV(MOD-sp4): 167.4 ml LAV(MOD-sp4): 59.5 ml EDV(sp4-el): 174.4 ml LVAs ap4: 32.3 cm2 LVLs ap4: 8.5 cm ESV(MOD-sp4): 104.9 ml ESV(sp4-el): 104.6 ml EF(MOD-sp4): 37.3 % EF(sp4-el): 40.0 % SV(MOD-sp4): 62.5 ml SV(sp4-el): 69.7 ml LA A4 area: 21.7 cm2 RA A4 area: 22.3 cm2 Time Measurements MV dec time: 0.12 sec Doppler Measurements & Calculations MV E max dontrell: 133.1 cm/sec Lat Peak E' Dontrell: 11.0 cm/sec Med Peak E' Dontrell: 5.8 cm/sec MV A max dontrell: 71.1 cm/sec E/E' lat: 12.1 E/E' med: 22.9 MV E/A: 1.9 MV V2 max: 124.3 cm/sec Ao V2 max: 129.6 cm/sec MV max P.2 mmHg MV dec slope: 1095 cm/sec2 Ao max P.7 mmHg MV V2 mean: 67.6 cm/sec Ao V2 mean: 92.8 cm/sec MV mean P.3 mmHg Ao mean P.8 mmHg MV V2 VTI: 35.4 cm Ao V2 VTI: 27.8 cm AV (velocity ratio): 1.1 MVA(VTI): 2.5 cm2 ANDREW(I,D): 3.2 cm2 ANDREW(V,D): 2.6 cm2 LV V1 max: 117.1 cm/sec SV(LVOT): 88.5 ml PA V2 max: 114.8 cm/sec LV V1 max P.5 mmHg PA max PG (full): 3.7 mmHg LV V1 mean P.2 mmHg LV V1 mean: 83.1 cm/sec LV V1 VTI: 31.2 cm ECHO/Echo Complete W/ Contrast Interpretation Summary Normal LV size. Left ventricular systolic function is normal. The left ventricular ejection fraction is 50 %. Stage 2 diastolic dysfunction. Contrast injection was performed. Ordering Physician: Gallito Hicks Referring Physician: Gallito Hicks Performed By: Tete Leung and Student
== END | disposition home or self-care (01) ==
LOC: CVS 10:45
PROVIDERS: PCP Family Medicine; Referring Provider Nurse Practitioner Family; Visit Provider Nurse Practitioner Family
DX: I42.8 Other cardiomyopathies (principal)
CPT/HCPCS: 93306; Q9957; A4216; C8929

== ENCOUNTER → 2024-06-06 | Outpatient (CLI) | payer MEDICARE, MEDICAID, SELFPAY ==
[2024-06-06 09:17] LABS: Anion Gap 8 (5-15); BUN 77 mg/dL (7-18); BUN/Creat Ratio 18.9 RATIO (10-20); Calcium,Total 9.5 mg/dL (8.5-10.1); Chloride 101 mmol/L (98-107); Creatinine, Serum 4.07 mg/dL (0.70-1.30); EST Glomerular Filtration Rate 15 mL/min (>60); Est Glom Filt Rate - Afr Amer 19 mL/min (>60); Glucose 231 mg/dL (74-106); Sodium Level 140 mmol/L (136-145)
== END | disposition home or self-care (01) ==
PROVIDERS: PCP Family Medicine; Referring Provider Nurse Practitioner Family; Visit Provider Nurse Practitioner Family
DX: I42.8 Other cardiomyopathies (principal); R06.02 Shortness of breath; M79.89 Other specified soft tissue disorders; N18.9 Chronic kidney disease, unspecified
CPT/HCPCS: 36415; 80048

== ENCOUNTER → 2024-06-12 | Outpatient (CLI) | payer MEDICARE, MEDICAID, SELFPAY ==
[2024-06-12 17:48] LABS: Hematocrit 27.1 % (40-54); Hemoglobin 8.6 g/dL (13.0-16.5); Mean Corp Hgb Conc 31.7 g/dL (32-36); Mean Corpuscular Hgb 31.4 pg (27.0-32.0); Mean Corpuscular Volume 98.9 fL (80-94); Mean Platelet Vol. 12.3 fl (6.2-12.0); Platelet Count 192 K/mm3 (150-450); RBC Distribution Width CV 12.8 % (11.6-14.6); RBC Distribution Width SD 45.5 fl (35.1-43.9); Red Blood Count 2.74 M/mm3 (4.6-6.2); White Blood Count 6.3 K/mm3 (4.4-11.0)
[2024-06-12 17:54] LABS: Anion Gap 6 (5-15); BUN 58 mg/dL (7-18); BUN/Creat Ratio 16.8 RATIO (10-20); Calcium,Total 9.8 mg/dL (8.5-10.1); Chloride 104 mmol/L (98-107); Creatinine, Serum 3.46 mg/dL (0.70-1.30); EST Glomerular Filtration Rate 19 mL/min (>60); Est Glom Filt Rate - Afr Amer 22 mL/min (>60); Glucose 215 mg/dL (74-106); Potassium 4.1 mmol/L (3.5-5.1); Sodium Level 140 mmol/L (136-145)
[2024-06-12 18:04] LABS: Urine Chloride 113 mmol/L (Not Establ.); Urine Sodium 98 mmol/L (Not Establ.)
== END | disposition home or self-care (01) ==
PROVIDERS: PCP Family Medicine; Referring Provider Nurse Practitioner Family; Visit Provider Nurse Practitioner Family
DX: N18.4 Chronic kidney disease, stage 4 (severe) (principal)
CPT/HCPCS: 36415; 80048; 82436; 82570; 84133; 84300; 85027

== ENCOUNTER 2024-06-23 15:15 | Outpatient (RCR) | payer MEDICARE, MEDICAID, SELFPAY ==
[2024-06-23 18:10] LABS: Anion Gap 11 (5-15); BUN 83 mg/dL (7-18); BUN/Creat Ratio 17.8 RATIO (10-20); Calcium,Total 10.2 mg/dL (8.5-10.1); Chloride 95 mmol/L (98-107); Creatinine, Serum 4.67 mg/dL (0.70-1.30); EST Glomerular Filtration Rate 13 mL/min (>60); Est Glom Filt Rate - Afr Amer 16 mL/min (>60); Glucose 149 mg/dL (74-106); Potassium 3.8 mmol/L (3.5-5.1); Sodium Level 137 mmol/L (136-145)
== END 2024-06-23 18:00 | disposition home or self-care (01) ==
LOC: MTLAB 15:15
PROVIDERS: PCP Family Medicine; Referring Provider Internal Medicine Nephrology; Visit Provider Internal Medicine Nephrology
DX: N18.4 Chronic kidney disease, stage 4 (severe) (principal)
CPT/HCPCS: 36415; 80048

== ENCOUNTER → 2024-07-13 | Outpatient (CLI) | payer MEDICARE, MEDICAID, SELFPAY ==
[2024-07-13 18:36] LABS: Hematocrit 29.9 % (40-54); Mean Corp Hgb Conc 33.4 g/dL (32-36); Mean Corpuscular Hgb 31.4 pg (27.0-32.0); Mean Platelet Vol. 12.6 fl (6.2-12.0); Platelet Count 239 K/mm3 (150-450); RBC Distribution Width CV 11.8 % (11.6-14.6); RBC Distribution Width SD 40.6 fl (35.1-43.9); Red Blood Count 3.18 M/mm3 (4.6-6.2); White Blood Count 8.5 K/mm3 (4.4-11.0)
[2024-07-13 19:35] LABS: Anion Gap 13 (5-15); BUN 111 mg/dL (7-18); BUN/Creat Ratio 22.7 RATIO (10-20); Calcium,Total 9.9 mg/dL (8.5-10.1); Chloride 94 mmol/L (98-107); Creatinine, Serum 4.89 mg/dL (0.70-1.30); EST Glomerular Filtration Rate 12 mL/min (>60); Est Glom Filt Rate - Afr Amer 15 mL/min (>60); Glucose 95 mg/dL (74-106); Iron 82 ug/dL (65-175); Iron Binding Capacity,Total 383 ug/dL (250-450); PERCENT IRON SATURATION 21.4 % (15.0-55.0); Potassium 3.7 mmol/L (3.5-5.1); Sodium Level 137 mmol/L (136-145)
== END | disposition home or self-care (01) ==
LOC: MTLAB 14:49
PROVIDERS: PCP Family Medicine; Visit Provider Internal Medicine Nephrology
DX: N18.4 Chronic kidney disease, stage 4 (severe) (principal)
CPT/HCPCS: 36415; 80048; 82436; 82570; 83540; 83550; 84133; 84300; 85027

== ENCOUNTER 2024-09-08 13:44 | Outpatient (CLI) | payer MEDICARE, MEDICAID, SELFPAY ==
--- NOTE | 2024-09-08 13:49 | VDUE_ITS ---
Reason For Study: Pre Op AVF Placement Map Right Lower Arm Left Arm Proximal Radial artery diameter 0.28 x 0.30 Left Brachial artery diameter 0.48 x 0.45 mm. mm. Proximal Radial artery waveform is Left Brachial artery waveform is triphasic . triphasic . Cephalic Vein at proximal upper arm measures Right Arm 0.45 x 0.40 cm. Right Brachial artery diameter 0.53 x 0.54 Cephalic Vein at mid upper arm measures 0.47 cm. x 0.40 cm. Right Brachial artery waveform is Cephalic Vein distal upper arm measures 0.39 triphasic . x 0.43 cm. Cephalic Vein at proximal upper arm measures Cephalic Vein proximal forearm measures 0.25 0.53 x 0.42 cm. x 0.25 cm. Cephalic Vein at mid upper arm measures 0.46 Cephalic Vein at mid forearm measures 0.20 x x 0.48 cm. 0.24 cm. Cephalic Vein distal upper arm measures 0.30 Cephalic Vein at distal forearm measures x 0.31 cm. 0.18 x 0.18 cm. Cephalic Vein proximal forearm measures 0.20 Proximal Basilic vein measures 0.59 x 0.62 x 0.22 cm. cm. Cephalic Vein at mid forearm measures 0.20 x Mid Basilic vein measures 0.39 x 0.38 cm. 0.23 cm. Distal Basilic vein measures 0.36 x 0.35 cm. Cephalic Vein at distal forearm measures Left Lower Arm 0.22 x 0.29 cm. Proximal Radial artery diameter 0.28 x 0.29 Proximal Basilic vein measures 0.33 x 0.38 mm. cm. Proximal Radial artery waveform is Mid Basilic vein measures 0.29 x 0.30 cm. triphasic . Unable to visualize distal basilic. VL/Dialysis Vein Map PRE-OP BILAT Interpretation Summary Bilateral upper extremity arteries patent with normal waveforms and measurement s above. Bilateral upper extremity veins patent with measurements above. Ordering Physician: Anuja Sanchez Referring Physician: Anuja Sanchez Performed By: Lloyd Luz RVT ???
== END 2024-09-08 23:59 | disposition home or self-care (01) ==
LOC: CVS 13:47
PROVIDERS: PCP Family Medicine; Referring Provider Internal Medicine Nephrology; Visit Provider Internal Medicine Nephrology
DX: T82.49XA Other complication of vascular dialysis catheter, initial encounter (principal); N17.9 Acute kidney failure, unspecified; Z99.2 Dependence on renal dialysis
CPT/HCPCS: 93985

== ENCOUNTER 2024-11-30 08:13 | Day surgery (SDC) | payer MEDICARE, MEDICAID, SELFPAY ==
--- NOTE | 2024-11-02 18:43 | PAT.ANESEVAL ---
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 When Was Last Pacemaker Check QUESTION #4 FULL TEXT: You/Your Family Experience fever (hyperthermia) with Anesthesia Last Oral Intake Last Oral intake: Last Oral Intake NPO since Meds taken in AM with sips of water? 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 Female No 11/02/24 14:03 HX of Motion Sickness No 11/02/24 14:03 HX of N/V After Surgery No 11/02/24 14:03 Non-Smoker Yes 11/02/24 14:03 Duration of Surgery greater Yes 11/02/24 14:03 than 60 minutes Number of Risk Factors 2 11/02/24 14:03 PONV Score Moderate Risk 11/02/24 14:03 Height & Weight Height & Weight: Anesthesia: Height & Weight Height 5 ft 9 in 04/24/24 09:48 Respiratory Assessment Respiratory Assessment - counting machine operator: Respiratory Tract Infection Hx - counting machine operator Hx Respiratory Tract Infection No 11/02/24 14:03 STOP Sleep Apnea STOP Sleep Apnea - counting machine operator: STOP Sleep Apnea - counting machine operator Hx Hypertension Yes: CONTROLLED WITH MED 11/02/24 14:03 Hx Sleep Apnea No 11/02/24 14:03 CPAP Yes 02/28/23 16:24 BIPAP No 02/28/23 16:24 Do you snore loudly (louder Yes 11/02/24 14:03 than talking or can be heard Do you often feel tired/ Yes 11/02/24 14:03 fatigued/ sleepy during daytime? Has anyone observed you stop No 11/02/24 14:03 breathing during sleep? STOP Results Positive 11/02/24 14:03 QUESTION #5 FULL TEXT : Do you snore loudly (louder than talking or can be heard through closed doors)? 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 Specify any problems Hx of Preganancy in last 3 N/A 11/02/24 14:03 Months Nurse Filling Out Transfusion DSCHRIBER 11/02/24 14:03 & Questions: Date: 11/02/24 11/02/24 14:03 Time: 14:05 11/02/24 14:03 Patient unable to answer at this time (ie. 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: /Reproductive Hx- counting machine operator Hx Now No 11/02/24 14:03 Gestational Age (in weeks): EDC: Hx Hx Para Hx Section SAB No 11/02/24 14:03 [facility] History (Updated 11/02/24 @ 14:16 by Keena Martin) History of Clostridium difficile infection Wears dentures Depression Anxiety Insulin dependent diabetes mellitus Walker as ambulation aid Ambulates with cane Arthritis History of renal dialysis High cholesterol Restless legs Back pain Dietary restriction Shortness of breath on exertion Leg cramps History of pain when walking History of edema History of Holter monitoring History of stress test History of echocardiogram Cardiology follow-up encounter Atrial tachycardia History of CVA (cerebrovascular accident) Left-sided weakness Diabetes mellitus, type 2 Persistent atrial fibrillation BPH (benign prostatic hyperplasia) Depression Normochromic normocytic anemia Iron deficiency History of iron deficiency Cerebral artery occlusion with cerebral infarction Acute right MCA stroke Longstanding persistent atrial fibrillation Chronic combined systolic and diastolic CHF (congestive heart failure) 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 (LBBB) Acute on chronic combined systolic (congestive) and diastolic (congestive) heart failure (02/02/20) History of non-ST elevation myocardial infarction (NSTEMI) (02/02/20) Non-ischemic cardiomyopathy NSVT (nonsustained ventricular tachycardia) Obesity CVA (cerebral vascular accident) (12/2017) Secondary pulmonary arterial hypertension GERD (gastroesophageal reflux disease) Hyperlipidemia Essential (primary) hypertension CKD (chronic kidney disease), stage III Paroxysmal atrial fibrillation Anemia Chronic low back pain Osteoarthritis Home Medications ?Medication ?Instructions ?Recorded ?Last Taken ?Type atorvastatin 80 mg tablet 80 mg PO QHS CHOLESTEROL 01/06/22 12/06/22 History multivitamin (Daily Multi-Vitamin 1 tab PO DAILY Supplement 02/12/22 12/07/22 History tablet) tamsulosin 0.4 mg capsule 0.4 mg PO BID Urine retention 02/12/22 12/07/22 History aspirin 81 mg capsule 81 mg PO DAILY Heart health 02/25/22 12/07/22 History ascorbic acid (vitamin C) 500 mg 1,000 mg PO LUNCH Supplement 02/28/23 Unknown History tablet magnesium chloride 64 mg 128 mg PO DAILY Supplement 02/28/23 Unknown History (magnesium chloride) tablet,delayed release (Mag 64) acetaminophen 500 mg tablet 1,000 mg (2 x 500 mg) PO Q8H PRN 03/15/23 Unknown Rx PRN Pain 1-10 #1 TAB calcium carbonate 500 mg (2.5 x 200 mg calcium (500 03/15/23 Unknown Rx mg)) PO BIDCM #1 TAB cholecalciferol (vitamin D3) 25 50 mcg (2 x 25 mcg (1,000 unit)) 03/15/23 Unknown Rx mcg (1,000 unit) tablet PO DAILY #1 TAB ferrous sulfate 325 mg (65 mg 325 mg PO DAILY supplement #30 tabs 03/15/23 12/07/22 Rx iron) tablet finasteride 5 mg tablet 5 mg PO DAILY #1 TAB 03/15/23 Unknown Rx insulin lispro 100 unit/mL 3 unit subcut TIDAC SLIDINING 03/15/23 Unknown Rx subcutaneous pen (Humalog KwikPen SCALE #1 mL (U-100) Insulin) buspirone 15 mg tablet 15 mg PO TID Mood 11/22/23 Unknown History docusate sodium 100 mg capsule 100 mg PO BID PRN constipation 11/22/23 Unknown History doxycycline hyclate 100 mg capsule 100 mg PO BID 11/22/23 Unknown History fenofibrate 54 mg tablet 54 mg PO QDAY 11/22/23 Unknown History insulin glargine-yfgn 100 unit/mL 16 unit subcut QHS Blood sugar 11/22/23 Unknown History (3 mL) subcutaneous pen olanzapine 5 mg tablet 5 mg PO QHS 11/22/23 Unknown History omeprazole 40 mg capsule,delayed 40 mg PO QDAY 11/22/23 Unknown History release ondansetron 4 mg disintegrating 2 mg PO TID Nausea 11/22/23 Unknown History tablet sertraline 100 mg tablet 100 mg PO QDAY 11/22/23 Unknown History zonisamide 50 mg capsule 50 mg PO BID 11/22/23 Unknown History apixaban 5 mg tablet 5 mg PO BID #180 tabs 02/14/24 Unknown Rx amiodarone 200 mg tablet 100 mg (1/2 x 200 mg) PO DAILY BP 02/19/24 Unknown Rx #90 tabs carvedilol 3.125 mg tablet 3.125 mg PO BID dose decreased for 03/31/24 Unknown Rx slow HR. #60 tabs Allergy/AdvReac Type Severity Reaction Status Date / Time rofecoxib Allergy Severe Swelling Verified 11/02/24 13:56 Family History Mother Heart disease Sister Heart disease Myocardial infarction CVA (cerebral vascular accident) Diabetes Brother CVA (cerebral vascular accident) Other Persistent atrial fibrillation Surgical History (Updated 11/02/24 @ 14:16 by Keena Martin) Hx of colonoscopy Hx of lumbar discectomy Hx of total knee arthroplasty History of knee replacement, total Social History Smoking Status: Never smoker alcohol intake: current alcohol intake frequency: holidays/special occasions only Alcohol type: beer substance use type: does not use caffeine: Yes Type: coffee Number of servings: 2 Audit: Pertinent Findings Pertinent Findings Stress test pertinent findings: Stress Test 04/18/2022: Conclusion: Normal pharmacologic myocardial perfusion stress test. Preserved ejection fraction. Echo (EF%) pertinent findings: Echo 05/21/2024: normal LV size, LVEF 50%, Stage 2 DD Echocardiogram 01/29/2023: Interpretation Summary Normal LV size. Left ventricular systolic function is normal. The estimated ejection fraction is 60 %. Contrast injection was performed. Recommendation Anesthesia Recommendation Anesthesia recommendation: F/U recommended (recommend cardiology follow up, he had an echo in 05/2024 and previous visit in 04/2024 discussed a follow up visit with cardiology after the echo to discuss further recommendations. EF is slightly dropped from 60% to 50% on new echo. ) Follow up Details Consult Recommendation: Yes Consult Rec Details: cardiology follow up for surgical clearance
--- NOTE | 2024-11-06 13:41 | PAT.ANE_ITS ---
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 When Was Last Pacemaker Check QUESTION #4 FULL TEXT: You/Your Family Experience fever (hyperthermia) with Anesthesia Last Oral Intake Last Oral intake: Last Oral Intake NPO since Meds taken in AM with sips of water? 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 Has anyone observed you stop No 11/02/24 14:03 breathing during sleep? STOP Results Positive 11/02/24 14:03 QUESTION #5 FULL TEXT : Do you snore loudly (louder than talking or can be heard through closed doors)? 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 Specify any problems Hx of Preganancy in last 3 N/A 11/02/24 14:03 Months Nurse Filling Out Transfusion DSCHRIBER 11/02/24 14:03 & Questions: Date: 11/02/24 11/02/24 14:03 Time: 14:05 11/02/24 14:03 Patient unable to answer at this time (ie. 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: /Reproductive Hx- dobby loom chain pegger Hx Now No 11/02/24 14:03 Gestational Age (in weeks): EDC: Hx Hx Para Hx Section SAB No 11/02/24 14:03 [facility] Medical History (Updated 11/02/24 @ 14:16 by Keena Martin) History of Clostridium difficile infection Wears dentures Depression Anxiety Insulin dependent diabetes mellitus Walker as ambulation aid Ambulates with cane Arthritis History of renal dialysis High cholesterol Restless legs Back pain Dietary restriction Shortness of breath on exertion Leg cramps History of pain when walking History of edema History of Holter monitoring History of stress test History of echocardiogram Cardiology follow-up encounter Atrial tachycardia History of CVA (cerebrovascular accident) Left-sided weakness Diabetes mellitus, type 2 Persistent atrial fibrillation BPH (benign prostatic hyperplasia) Depression Normochromic normocytic anemia Iron deficiency History of iron deficiency Cerebral artery occlusion with cerebral infarction Acute right MCA stroke Longstanding persistent atrial fibrillation Chronic combined systolic and diastolic CHF (congestive heart failure) 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 (LBBB) Acute on chronic combined systolic (congestive) and diastolic (congestive) heart failure (02/02/20) History of non-ST elevation myocardial infarction (NSTEMI) (02/02/20) Non-ischemic cardiomyopathy NSVT (nonsustained ventricular tachycardia) Obesity CVA (cerebral vascular accident) (12/2017) Secondary pulmonary arterial hypertension GERD (gastroesophageal reflux disease) Hyperlipidemia Essential (primary) hypertension CKD (chronic kidney disease), stage III Paroxysmal atrial fibrillation Anemia Chronic low back pain Osteoarthritis Home Medications ?Medication ?Instructions ?Recorded ?Last Taken ?Type atorvastatin 80 mg tablet 80 mg PO QHS CHOLESTEROL 12/06/22 History multivitamin (Daily Multi-Vitamin 1 tab PO DAILY Suppl ement 02/12/22 12/07/22 History tablet) tamsulosin 0.4 mg capsule 0.4 mg PO BID Urine retentio n 02/12/22 12/07/22 History aspirin 81 mg capsule 81 mg PO DAILY Heart health 02/25/22 12/07/22 History ascorbic acid (vitamin C) 500 mg 1,000 mg PO LUNCH Sup plement 02/28/23 Unknown History tablet magnesium chloride 64 mg 128 mg PO DAILY Supplement 0 02/28/23 Unknown History (magnesium chloride) tablet,delayed release (Mag 64) acetaminophen 500 mg tablet 1,000 mg (2 x 500 mg) PO Q 8H PRN 03/15/23 Unknown Rx PRN Pain 1-10 #1 TAB calcium carbonate 500 mg (2.5 x 200 mg calcium (500 03/15/23 Unknown Rx mg)) PO BIDCM #1 TAB cholecalciferol (vitamin D3) 25 50 mcg (2 x 25 mcg (1, 000 unit)) 03/15/23 Unknown Rx mcg (1,000 unit) tablet PO DAILY #1 TAB ferrous sulfate 325 mg (65 mg 325 mg PO DAILY suppleme nt #30 tabs 03/15/23 12/07/22 Rx iron) tablet finasteride 5 mg tablet 5 mg PO DAILY #1 TAB 3 Unknown Rx insulin lispro 100 unit/mL 3 unit subcut TIDAC SLIDINI NG 03/15/23 Unknown Rx subcutaneous pen (Humalog KwikPen SCALE #1 mL (U-100) Insulin) buspirone 15 mg tablet 15 mg PO TID Mood 11/22/23 U nknown History docusate sodium 100 mg capsule 100 mg PO BID PRN const ipation 11/22/23 Unknown History doxycycline hyclate 100 mg capsule 100 mg PO BID 11/21 Unknown History fenofibrate 54 mg tablet 54 mg PO QDAY 11/22/23 Unkno wn History insulin glargine-yfgn 100 unit/mL 16 unit subcut QHS B lood sugar 11/22/23 Unknown History (3 mL) subcutaneous pen olanzapine 5 mg tablet 5 mg PO QHS 11/22/23 Unknown History omeprazole 40 mg capsule,delayed 40 mg PO QDAY 4 Unknown History release ondansetron 4 mg disintegrating 2 mg PO TID Nausea Unknown History tablet sertraline 100 mg tablet 100 mg PO QDAY 11/22/23 Unkn own History zonisamide 50 mg capsule 50 mg PO BID 11/22/23 Unknow n History apixaban 5 mg tablet 5 mg PO BID #180 tabs Unknown Rx amiodarone 200 mg tablet 100 mg (1/2 x 200 mg) PO NOHEMY LY BP 02/19/24 Unknown Rx #90 tabs carvedilol 3.125 mg tablet 3.125 mg PO BID dose decrea sed for 03/31/24 Unknown Rx slow HR. #60 tabs Allergy/AdvReac Type Severity Reaction Status Date / Time rofecoxib Allergy Severe Swelling Verified 11/02/24 13:56 Family History Mother Heart disease Sister Heart disease Myocardial infarction CVA (cerebral vascular accident) Diabetes Brother CVA (cerebral vascular accident) Other Persistent atrial fibrillation Surgical History (Updated 11/02/24 @ 14:16 by Keena Martin) Hx of colonoscopy Hx of lumbar discectomy Hx of total knee arthroplasty History of knee replacement, total Social History Smoking Status: Never smoker alcohol intake: current alcohol intake frequency: holidays/special occasions only Alcohol type: beer substance use type: does not use caffeine: Yes Type: coffee Number of servings: 2 Audit: Pertinent Findings HISTORY of Pertinent Findings History of Pertinent Findings: Stress Test Pertinent Findings Stress test pertinent findings Stress Test 04/18/2022: 11/02/24 18:47 Conclusion: Normal pharmacologic myocardial perfusion stress test. Preserved ejection fraction. Echo Pertinent Findings Echo (EF%) pertinent findings Echo 05/21/2024: 11/02/24 18:47 normal LV size, LVEF 50%, Stage 2 DD Echocardiogram 01/29/2023: Interpretation Summary Normal LV size. Left ventricular systolic function is normal. The estimated ejection fraction is 60 %. Contrast injection was performed. Pertinent Findings EKG Perinent findings: April 24, 2024. Sinus bradycardia. First-degree AV block. Intraventricular conduction defect. Possible anterior fascicular block. Consider ventricular hypertrophy. Old anterior infarct. Consult pertinent findings: November 05, 2024. Fabiola ISAAC. Patient reports through his that he is doing well without any new concerns. Since there is no new change in symptoms since the last office visit, he may proceed with left AV fistula creation. Patient should hold his Eliquis approximately 2 days prior to procedure. Recommendation Anesthesia Recommendation Anesthesia recommendation: OPTIMIZED for anesthesia
[2024-11-09 15:38] LABS: Hematocrit 30.5 % (40-54); Mean Corp Hgb Conc 32.8 g/dL (32-36); Mean Corpuscular Hgb 34.5 pg (27.0-32.0); Mean Corpuscular Volume 105.2 fL (80-94); Mean Platelet Vol. 12.1 fl (6.2-12.0); Platelet Count 163 K/mm3 (150-450); RBC Distribution Width CV 13.4 % (11.6-14.6); RBC Distribution Width SD 51.6 fl (35.1-43.9); White Blood Count 6.4 K/mm3 (4.4-11.0)
[2024-11-09 23:51] LABS: Anion Gap 19 (5-15); BUN 57 mg/dL (4-19); BUN/Creat Ratio 7.4 RATIO (10-20); Calcium 9.8 mg/dL (7.6-11.0); Carbon Dioxide 22.1 mmol/L (22.0-29.0); Chloride 92 mmol/L (96-108); EST Glomerular Filtration Rate 7 (>60); Glucose 168 mg/dL (70-99); Potassium 6.1 mmol/L (3.3-5.1); Sodium Level 134 mmol/L (133-145)
--- NOTE | 2024-11-10 09:34 | PAT.ANESEVAL ---
Pre-Assessment Diagnosis/Proposed Procedure Planned Operative Procedure(s): LEFT AV FISTULA CREATION Anesthesia History Anesthesia History - seam stay stitcher: Anesthesia History - seam stay stitcher Hx Hospitalization No 11/02/24 14:03 Any Problems With Anesthesia No 11/02/24 14:03 Cholinesterase deficiency No 11/02/24 14:03 You/Your Family Experience No 11/02/24 14:03 fever (hyperthermia) with Relationship Recent Exposure to Contagious Disease Does patient have nerve Yes: OFF PER PT'S 11/02/24 14:03 stimulator Patient instructed to have device shut off --Does patient have Pacemaker or ICD? When Was Last Pacemaker Check QUESTION #4 FULL TEXT: You/Your Family Experience fever (hyperthermia) with Anesthesia Last Oral Intake Last Oral intake: Last Oral Intake NPO since Meds taken in AM with sips of water? Meds patient instructed to take am of surgery PONV PONV - seam stay stitcher: PONV - seam stay stitcher Female No 11/02/24 14:03 HX of Motion Sickness No 11/02/24 14:03 HX of N/V After Surgery No 11/02/24 14:03 Non-Smoker Yes 11/02/24 14:03 Duration of Surgery greater Yes 11/02/24 14:03 than 60 minutes Number of Risk Factors 2 11/02/24 14:03 PONV Score Moderate Risk 11/02/24 14:03 Height & Weight Height & Weight: Anesthesia: Height & Weight Height 5 ft 9 in 04/24/24 09:48 Respiratory Assessment Respiratory Assessment - seam stay stitcher: Respiratory Tract Infection Hx - seam stay stitcher Hx Respiratory Tract Infection No 11/02/24 14:03 STOP Sleep Apnea STOP Sleep Apnea - seam stay stitcher: STOP Sleep Apnea - seam stay stitcher Hx Hypertension Yes: CONTROLLED WITH MED 11/02/24 14:03 Hx Sleep Apnea No 11/02/24 14:03 CPAP Yes 02/28/23 16:24 BIPAP No 02/28/23 16:24 Do you snore loudly (louder Yes 11/02/24 14:03 than talking or can be heard Do you often feel tired/ Yes 11/02/24 14:03 fatigued/ sleepy during daytime? Has anyone observed you stop No 11/02/24 14:03 breathing during sleep? STOP Results Positive 11/02/24 14:03 QUESTION #5 FULL TEXT : Do you snore loudly (louder than talking or can be heard through closed doors)? 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 Specify any problems Hx of Preganancy in last 3 N/A 11/02/24 14:03 Months Nurse Filling Out Transfusion DSCHRIBER 11/02/24 14:03 & Questions: Date: 11/02/24 11/02/24 14:03 Time: 14:05 11/02/24 14:03 Patient unable to answer at this time (ie. confused, unrespo /Reproduction History /Reproductive History - seam stay stitcher: /Reproductive Hx- seam stay stitcher Hx Now No 11/02/24 14:03 Gestational Age (in weeks): EDC: Hx Hx Para Hx Section SAB No 11/02/24 14:03 [facility] History (Updated 11/02/24 @ 14:16 by Keena Martin) History of Clostridium difficile infection Wears dentures Depression Anxiety Insulin dependent diabetes mellitus Walker as ambulation aid Ambulates with cane Arthritis History of renal dialysis High cholesterol Restless legs Back pain Dietary restriction Shortness of breath on exertion Leg cramps History of pain when walking History of edema History of Holter monitoring History of stress test History of echocardiogram Cardiology follow-up encounter Atrial tachycardia History of CVA (cerebrovascular accident) Left-sided weakness Diabetes mellitus, type 2 Persistent atrial fibrillation BPH (benign prostatic hyperplasia) Depression Normochromic normocytic anemia Iron deficiency History of iron deficiency Cerebral artery occlusion with cerebral infarction Acute right MCA stroke Longstanding persistent atrial fibrillation Chronic combined systolic and diastolic CHF (congestive heart failure) 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 (LBBB) Acute on chronic combined systolic (congestive) and diastolic (congestive) heart failure (02/02/20) History of non-ST elevation myocardial infarction (NSTEMI) (02/02/20) Non-ischemic cardiomyopathy NSVT (nonsustained ventricular tachycardia) Obesity CVA (cerebral vascular accident) (12/2017) Secondary pulmonary arterial hypertension GERD (gastroesophageal reflux disease) Hyperlipidemia Essential (primary) hypertension CKD (chronic kidney disease), stage III Paroxysmal atrial fibrillation Anemia Chronic low back pain Osteoarthritis Home Medications ?Medication ?Instructions ?Recorded ?Last Taken ?Type atorvastatin 80 mg tablet 80 mg PO QHS CHOLESTEROL 01/06/22 12/06/22 History multivitamin (Daily Multi-Vitamin 1 tab PO DAILY Supplement 02/12/22 12/07/22 History tablet) tamsulosin 0.4 mg capsule 0.4 mg PO BID Urine retention 02/12/22 12/07/22 History aspirin 81 mg capsule 81 mg PO DAILY Heart health 02/25/22 12/07/22 History ascorbic acid (vitamin C) 500 mg 1,000 mg PO LUNCH Supplement 02/28/23 Unknown History tablet magnesium chloride 64 mg 128 mg PO DAILY Supplement 02/28/23 Unknown History (magnesium chloride) tablet,delayed release (Mag 64) acetaminophen 500 mg tablet 1,000 mg (2 x 500 mg) PO Q8H PRN 03/15/23 Unknown Rx PRN Pain 1-10 #1 TAB calcium carbonate 500 mg (2.5 x 200 mg calcium (500 03/15/23 Unknown Rx mg)) PO BIDCM #1 TAB cholecalciferol (vitamin D3) 25 50 mcg (2 x 25 mcg (1,000 unit)) 03/15/23 Unknown Rx mcg (1,000 unit) tablet PO DAILY #1 TAB ferrous sulfate 325 mg (65 mg 325 mg PO DAILY supplement #30 tabs 03/15/23 12/07/22 Rx iron) tablet finasteride 5 mg tablet 5 mg PO DAILY #1 TAB 03/15/23 Unknown Rx insulin lispro 100 unit/mL 3 unit subcut TIDAC SLIDINING 03/15/23 Unknown Rx subcutaneous pen (Humalog KwikPen SCALE #1 mL (U-100) Insulin) buspirone 15 mg tablet 15 mg PO TID Mood 11/22/23 Unknown History docusate sodium 100 mg capsule 100 mg PO BID PRN constipation 11/22/23 Unknown History doxycycline hyclate 100 mg capsule 100 mg PO BID 11/22/23 Unknown History fenofibrate 54 mg tablet 54 mg PO QDAY 11/22/23 Unknown History insulin glargine-yfgn 100 unit/mL 16 unit subcut QHS Blood sugar 11/22/23 Unknown History (3 mL) subcutaneous pen olanzapine 5 mg tablet 5 mg PO QHS 11/22/23 Unknown History omeprazole 40 mg capsule,delayed 40 mg PO QDAY 11/22/23 Unknown History release ondansetron 4 mg disintegrating 2 mg PO TID Nausea 11/22/23 Unknown History tablet sertraline 100 mg tablet 100 mg PO QDAY 11/22/23 Unknown History zonisamide 50 mg capsule 50 mg PO BID 11/22/23 Unknown History apixaban 5 mg tablet 5 mg PO BID #180 tabs 02/14/24 Unknown Rx amiodarone 200 mg tablet 100 mg (1/2 x 200 mg) PO DAILY BP 02/19/24 Unknown Rx #90 tabs carvedilol 3.125 mg tablet 3.125 mg PO BID dose decreased for 03/31/24 Unknown Rx slow HR. #60 tabs Allergy/AdvReac Type Severity Reaction Status Date / Time rofecoxib Allergy Severe Swelling Verified 11/02/24 13:56 Family History Mother Heart disease Sister Heart disease Myocardial infarction CVA (cerebral vascular accident) Diabetes Brother CVA (cerebral vascular accident) Other Persistent atrial fibrillation Surgical History (Updated 11/02/24 @ 14:16 by Keena Martin) Hx of colonoscopy Hx of lumbar discectomy Hx of total knee arthroplasty History of knee replacement, total Social History Smoking Status: Never smoker alcohol intake: current alcohol intake frequency: holidays/special occasions only Alcohol type: beer substance use type: does not use caffeine: Yes Type: coffee Number of servings: 2 Audit: Pertinent Findings HISTORY of Pertinent Findings History of Pertinent Findings: EKG Pertinent Findings EKG Perinent findings April 24, 2024. Sinus 11/06/24 13:52 bradycardia. First-degree AV block. Intraventricular conduction defect. Possible anterior fascicular block. Consider ventricular hypertrophy. Old anterior infarct. Stress Test Pertinent Findings Stress test pertinent findings Stress Test 04/18/2022: 11/02/24 18:47 Conclusion: Normal pharmacologic myocardial perfusion stress test. Preserved ejection fraction. Echo Pertinent Findings Echo (EF%) pertinent findings Echo 05/21/2024: 11/02/24 18:47 normal LV size, LVEF 50%, Stage 2 DD Echocardiogram 01/29/2023: Interpretation Summary Normal LV size. Left ventricular systolic function is normal. The estimated ejection fraction is 60 %. Contrast injection was performed. Consult Pertinent Findings Consult pertinent findings November 05, 2024. Fabiola [employer] SUPER[employer]- 11/06/24 13:52 C. Patient reports through his that he is doing well without any new concerns. Since there is no new change in symptoms since the last office visit, he may proceed with left AV fistula creation. Patient should hold his Eliquis approximately 2 days prior to procedure. Pertinent Findings Additional pertinent findings: Patient has elevated potassium at 6.1. And elevated creatinine at 7.7. Is a dialysis patient this is not unusual. Okay to proceed. Recommendation Anesthesia Recommendation Anesthesia recommendation: OPTIMIZED for anesthesia
[2024-11-30] VITALS (9 sets, daily range): BP systolic 119–142; BP diastolic 57–77; PULSE 64–73; RESP 16–20; TEMP 36.4–36.7; O2SAT 98–100; BMI 37.1
[2024-11-30 09:18] LABS: Bedside Glucose 111 mg/dL (74-106)
--- NOTE | 2024-11-30 09:30 | PCM.HP.STD ---
HPI - General HPI Narrative VIVI SAINI, is a 74 M who presents with ESRD currently on HD. He had vein mapping that revealed left arm adequate upper arm basilic and cephalic veins. He presents for fistula creation. [facility] Medical History History of Clostridium difficile infection Wears dentures Depression Anxiety Insulin dependent diabetes mellitus Walker as ambulation aid Ambulates with cane Arthritis History of renal dialysis High cholesterol Restless legs Back pain Dietary restriction Shortness of breath on exertion Leg cramps History of pain when walking History of edema History of Holter monitoring History of stress test History of echocardiogram Cardiology follow-up encounter Atrial tachycardia History of CVA (cerebrovascular accident) Left-sided weakness Diabetes mellitus, type 2 Persistent atrial fibrillation BPH (benign prostatic hyperplasia) Depression Normochromic normocytic anemia Iron deficiency History of iron deficiency Cerebral artery occlusion with cerebral infarction Acute right MCA stroke Longstanding persistent atrial fibrillation Chronic combined systolic and diastolic CHF (congestive heart failure) 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 (LBBB) Acute on chronic combined systolic (congestive) and diastolic (congestive) heart failure (02/02/20) History of non-ST elevation myocardial infarction (NSTEMI) (02/02/20) Non-ischemic cardiomyopathy NSVT (nonsustained ventricular tachycardia) Obesity CVA (cerebral vascular accident) (12/2017) Secondary pulmonary arterial hypertension GERD (gastroesophageal reflux disease) Hyperlipidemia Essential (primary) hypertension CKD (chronic kidney disease), stage III Paroxysmal atrial fibrillation Anemia Chronic low back pain Osteoarthritis Home Medications ?Medication ?Instructions ?Recorded ?Last Taken ?Type atorvastatin 80 mg tablet 80 mg PO QHS CHOLESTEROL 01/06/22 12/06/22 History multivitamin (Daily Multi-Vitamin 1 tab PO DAILY Supplement 02/12/22 12/07/22 History tablet) tamsulosin 0.4 mg capsule 0.4 mg PO BID Urine retention 02/12/22 11/30/24 History aspirin 81 mg capsule 81 mg PO DAILY [employer] [facility] [employer] [facility] [employer] health 02/25/22 11/26/24 History ascorbic acid (vitamin C) 500 mg 1,000 mg PO LUNCH Supplement 02/28/23 Unknown History tablet magnesium chloride 64 mg 128 mg PO DAILY Supplement 02/28/23 Unknown History (magnesium chloride) tablet,delayed release (Mag 64) acetaminophen 500 mg tablet 1,000 mg (2 x 500 mg) PO Q8H PRN 03/15/23 Unknown Rx PRN Pain 1-10 #1 TAB calcium carbonate 500 mg (2.5 x 200 mg calcium (500 03/15/23 Unknown Rx mg)) PO BIDCM #1 TAB cholecalciferol (vitamin D3) 25 50 mcg (2 x 25 mcg (1,000 unit)) 03/15/23 Unknown Rx mcg (1,000 unit) tablet PO DAILY #1 TAB ferrous sulfate 325 mg (65 mg 325 mg PO DAILY supplement #30 tabs 03/15/23 12/07/22 Rx iron) tablet finasteride 5 mg tablet 5 mg PO DAILY #1 TAB 03/15/23 Unknown Rx insulin lispro 100 unit/mL 3 unit subcut TIDAC SLIDINING 03/15/23 Unknown Rx subcutaneous pen (Humalog KwikPen SCALE #1 mL (U-100) Insulin) buspirone 15 mg tablet 15 mg PO TID Mood 11/22/23 11/30/24 History docusate sodium 100 mg capsule 100 mg PO BID PRN constipation 11/22/23 Unknown History doxycycline hyclate 100 mg capsule 100 mg PO BID 11/22/23 Unknown History fenofibrate 54 mg tablet 54 mg PO QDAY 11/22/23 Unknown History insulin glargine-yfgn 100 unit/mL 16 unit subcut QHS Blood sugar 11/22/23 Unknown History (3 mL) subcutaneous pen olanzapine 5 mg tablet 5 mg PO QHS 11/22/23 Unknown History omeprazole 40 mg capsule,delayed 40 mg PO QDAY 11/22/23 11/30/24 History release ondansetron 4 mg disintegrating 2 mg PO TID Nausea 11/22/23 Unknown History tablet sertraline 100 mg tablet 100 mg PO QDAY 11/22/23 11/30/24 History zonisamide 50 mg capsule 50 mg PO BID 11/22/23 11/30/24 History apixaban 5 mg tablet 5 mg PO BID #180 tabs 02/14/24 11/26/24 Rx amiodarone 200 mg tablet 100 mg (1/2 x 200 mg) PO DAILY BP 02/19/24 11/30/24 Rx #90 tabs carvedilol 3.125 mg tablet 3.125 mg PO BID dose decreased for 03/31/24 11/30/24 Rx slow HR. #60 tabs Allergy/AdvReac Type Severity Reaction Status Date / Time rofecoxib Allergy Severe Swelling Verified 11/30/24 08:35 Family History Mother Heart disease Sister Heart disease Myocardial infarction CVA (cerebral vascular accident) Diabetes Brother CVA (cerebral vascular accident) Other Persistent atrial fibrillation Surgical History (Updated 11/02/24 @ 14:16 by Keena Matrin) Hx of colonoscopy Hx of lumbar discectomy Hx of total knee arthroplasty History of knee replacement, total Social History Smoking Status: Never smoker alcohol intake: current alcohol intake frequency: holidays/special occasions only Alcohol type: beer substance use type: does not use caffeine: Yes Type: coffee Number of servings: 2 ROS Constitutional Constitutional: Denies chills, fever(s), frequent falls, lethargy or weakness Eyes Eyes: Denies blind spots, change in vision or loss of vision ENT HEENT: Denies bleeding gums, hoarseness or sore throat Cardiovascular Cardiovascular: Denies abdominal pain, bluish discoloration of hand/feet, chest pain with activity, claudication, cold extremities, cyanosis, dyspnea on exertion, erythema on extremities, irregular heart rhythm, leg edema, leg ulcers, numbness in extremities or weakness in extremities Respiratory/Chest Respiratory/Chest: Denies cough, excessive phlegm production, shortness of breath at rest, shortness of breath with exertion or wheezing Gastrointestinal Gastrointestinal: Denies anorexia, change in stool character, constipation, diarrhea, melena or rectal bleeding Genitourinary Genitourinary: Denies dysuria or hematuria Musculoskeletal Musculoskeletal: Denies abnormal gait Integumentary Integumentary: Reports other Details: ; Denies erythema, non-healing lesions or wounds Neurologic Neurologic: Denies abnormal speech, focal weakness, headache(s), loss of vision, numbness, paresthesias or sensory deficit Hematologic/Lymphatic Hematologic/Lymphatic: Denies easy bleeding, easy bruising or lymphadenopathy Vital Signs Vital Signs Vital Signs: 11/30/24 08:42 11/30/24 08:42 Temperature 97.5 F L Temperature Source Temporal Pulse Rate 65 Respiratory Rate 18 Respiratory Pattern Normal Blood Pressure 119/57 L Blood Pressure Mean 77 Blood Pressure Source Monitor Blood Pressure Position Semi-Fowlers Blood Pressure Location Right Forearm Pulse Ox 99 Oxygen Delivery Method Room Air Weight Weight: 251 lb 12.286 oz Body Mass Index (BMI) 37.1 Physical Exam Const alert, oriented x3, no apparent distress and healthy appearing General Appearance: cooperative; Negative for combative or lethargic Orientation / Consciousness: awake Exam Limitations: no limitations HEENT Head and Scalp: normocephalic and atraumatic Eyes EOMs intact bilaterally General Eye: normal appearance of both eyes Neck full ROM General: trachea midline Resp normal respiratory effort and no use of accessory muscles Effort and Inspection: Negative for labored, stridor or audible wheezes Cardio regular rate and regular rhythm Back/Spine Cervical Spine: cervical ROM normal Extremity full ROM, normal capillary refill and no clubbing, cyanosis or edema Skin no rashes or lesions noted and no wounds Neuro oriented x3, CN's II-XII intact bilaterally, no focal motor deficits and no sensory deficits noted Psych thought process normal, cooperative, affect normal, speech normal and activity/motor behavior normal Results Lab / Micro Data 11/09/24 13:56 11/09/24 13:56 Labs: Laboratory Results - last 24 hr 11/30/24 08:46: POC Glucose 111 H Assessment & Plan Assessment/Plan (1) ESRD (end stage renal disease) on dialysis: PLAN: -left arm fistula creation
--- NOTE | 2024-11-30 09:34 | PCM.PRE.AN2 ---
ASA Classification* ASA Classification ASA Classification: 3 Assessment & Plan Anesthesia* Anesthesia Assessment Anesthesia Assessment: Discussed sedation and/or anesthesia options, risks, benefits, and alternatives with patient/parents/legal guardian/POA. Questions invited. The patient/parents/legal guardian/POA seems to understand and agrees to proceed with anesthesia plan. Reviewed the physical assessment, medical history, allergy history and patient home medications list prior to surgery/procedure/anesthetic and documented any changes. Performed airway and anesthesia risk assessments. Anesthesia Type Anesthesia Type: MAC History Source History Obtained from:: Patient and Chart Anesthesia Focused Assessment* Temperature: 97.5 F Pulse Rate: 65 Blood Pressure: 119/57 Respiratory Rate: 18 Pulse Ox: 99 Oxygen Delivery Method: Room Air Airway Assessment Mouth opens: >3 cm Mallampati Score: III Teeth Condition: Dentures (Patient has full upper dentures.), Lower ([place] teeth are intact. None loose.) and Missing Neck Range of motion (ROM): Limited ROM Focused Labs Anesthesia Preop lab: CBC WBC 6.4 K/mm3 (4.4-11.0) 11/09/24 13:56 11/09/24 RBC 2.90 M/mm3 (4.6-6.2) L 11/09/24 13:56 11/09/24 Hgb 10.0 g/dL (13.0-16.5) L 11/09/24 13:56 11/09/24 Hct 30.5 % (40-54) L 11/09/24 13:56 11/09/24 Plt Count 163 K/mm3 (150-450) 11/09/24 13:56 11/09/24 CHEMISTRY Potassium 6.1 mmol/L (3.3-5.1) H* 11/09/24 13:56 11/09/24 Sodium 134 mmol/L (133-145) 11/09/24 13:56 11/09/24 Magnesium 2.0 mg/dL (1.6-2.6) 03/01/23 05:41 03/01/23 Phosphorus 5.0 mg/dL (2.5-4.9) H 01/07/24 07:17 01/07/24 BUN 57 mg/dL (4-19) H 11/09/24 13:56 11/09/24 Creatinine 7.70 mg/dL (0.70-1.20) H* 11/09/24 13:56 11/09/24 Glucose 168 mg/dL (70-99) H 11/09/24 13:56 11/09/24 POC Glucose 111 mg/dL (74-106) H 11/30/24 08:46 11/30/24 TSH 2.33 uIU/mL (0.358-3.74) 01/23/24 09:38 01/23/24 COAG PT 16.9 SECONDS (11.7-14.9) H 11/29/22 15:52 11/29/22 Pre-Assessment Diagnosis/Proposed Procedure Planned Operative Procedure(s): LEFT AV FISTULA CREATION Anesthesia History 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 When Was Last Pacemaker Check QUESTION #4 FULL TEXT: You/Your Family Experience fever (hyperthermia) with Anesthesia Last Oral Intake Last Oral intake: Last Oral Intake NPO since 00:00 11/30/24 08:42 Meds taken in AM with sips of Yes 11/30/24 08:42 water? Meds patient instructed to see medlist 11/30/24 08:42 take am of surgery PONV PONV - biological sciences instructor: PONV - biological sciences instructor Female No 11/02/24 14:03 HX of Motion Sickness No 11/02/24 14:03 HX of N/V After Surgery No 11/02/24 14:03 Non-Smoker Yes 11/02/24 14:03 Duration of Surgery greater Yes 11/02/24 14:03 than 60 minutes Number of Risk Factors 2 11/02/24 14:03 PONV Score Moderate Risk 11/02/24 14:03 Height & Weight Height & Weight: Anesthesia: Height & Weight Height 5 ft 9 in 11/30/24 08:42 Weight: 114.2 kg 11/30/24 08:42 Body Mass Index (BMI) 37.1 11/30/24 08:42 Respiratory Assessment Respiratory Assessment - biological sciences instructor: Respiratory Tract Infection Hx - biological sciences instructor Hx Respiratory Tract Infection No 11/02/24 14:03 STOP Sleep Apnea STOP Sleep Apnea - biological sciences instructor: STOP Sleep Apnea - biological sciences instructor Hx Hypertension Yes: CONTROLLED WITH MED 11/02/24 14:03 Hx Sleep Apnea No 11/02/24 14:03 CPAP Yes 02/28/23 16:24 BIPAP No 02/28/23 16:24 Do you snore loudly (louder Yes 11/02/24 14:03 than talking or can be heard Do you often feel tired/ Yes 11/02/24 14:03 fatigued/ sleepy during daytime? Has anyone observed you stop No 11/02/24 14:03 breathing during sleep? STOP Results Positive 11/02/24 14:03 QUESTION #5 FULL TEXT : Do you snore loudly (louder than talking or can be heard through closed doors)? 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 Specify any problems Hx of Preganancy in last 3 N/A 11/02/24 14:03 Months Nurse Filling Out Transfusion DSCHRIBER 11/02/24 14:03 & Questions: Date: 11/02/24 11/02/24 14:03 Time: 14:05 11/02/24 14:03 Patient unable to answer at this time (ie. confused, unrespo /Reproduction History /Reproductive History - biological sciences instructor: /Reproductive Hx- biological sciences instructor Hx Now No 11/02/24 14:03 Gestational Age (in weeks): EDC: Hx Hx Para Hx Section SAB No 11/02/24 14:03 Active Medications Active Medications: Current Medications Generic Name Dose Route Start Last Admin Trade Name Freq PRN Reason Stop Dose Admin Cefazolin Sodium 2 gm/ N/A 20 mls @ 400 mls/hr 11/30/24 10:00 IV 11/30/24 10:02 PREOP ONE [facility] Medical History History of Clostridium difficile infection Wears dentures Depression Anxiety Insulin dependent diabetes mellitus Walker as ambulation aid Ambulates with cane Arthritis History of renal dialysis High cholesterol Restless legs Back pain Dietary restriction Shortness of breath on exertion Leg cramps History of pain when walking History of edema History of Holter monitoring History of stress test History of echocardiogram Cardiology follow-up encounter Atrial tachycardia History of CVA (cerebrovascular accident) Left-sided weakness Diabetes mellitus, type 2 Persistent atrial fibrillation BPH (benign prostatic hyperplasia) Depression Normochromic normocytic anemia Iron deficiency History of iron deficiency Cerebral artery occlusion with cerebral infarction Acute right MCA stroke Longstanding persistent atrial fibrillation Chronic combined systolic and diastolic CHF (congestive heart failure) 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 (LBBB) Acute on chronic combined systolic (congestive) and diastolic (congestive) heart failure (02/02/20) History of non-ST elevation myocardial infarction (NSTEMI) (02/02/20) Non-ischemic cardiomyopathy NSVT (nonsustained ventricular tachycardia) Obesity CVA (cerebral vascular accident) (12/2017) Secondary pulmonary arterial hypertension GERD (gastroesophageal reflux disease) Hyperlipidemia Essential (primary) hypertension CKD (chronic kidney disease), stage III Paroxysmal atrial fibrillation Anemia Chronic low back pain Osteoarthritis Home Medications ?Medication ?Instructions ?Recorded ?Last Taken ?Type atorvastatin 80 mg tablet 80 mg PO QHS CHOLESTEROL 01/06/22 12/06/22 History multivitamin (Daily Multi-Vitamin 1 tab PO DAILY Supplement 02/12/22 12/07/22 History tablet) tamsulosin 0.4 mg capsule 0.4 mg PO BID Urine retention 02/12/22 11/30/24 History aspirin 81 mg capsule 81 mg PO DAILY Heart health 02/25/22 11/26/24 History ascorbic acid (vitamin C) 500 mg 1,000 mg PO LUNCH Supplement 02/28/23 Unknown History tablet magnesium chloride 64 mg 128 mg PO DAILY Supplement 02/28/23 Unknown History (magnesium chloride) tablet,delayed release (Mag 64) acetaminophen 500 mg tablet 1,000 mg (2 x 500 mg) PO Q8H PRN 03/15/23 Unknown Rx PRN Pain 1-10 #1 TAB calcium carbonate 500 mg (2.5 x 200 mg calcium (500 03/15/23 Unknown Rx mg)) PO BIDCM #1 TAB cholecalciferol (vitamin D3) 25 50 mcg (2 x 25 mcg (1,000 unit)) 03/15/23 Unknown Rx mcg (1,000 unit) tablet PO DAILY #1 TAB ferrous sulfate 325 mg (65 mg 325 mg PO DAILY supplement #30 tabs 03/15/23 12/07/22 Rx iron) tablet finasteride 5 mg tablet 5 mg PO DAILY #1 TAB 03/15/23 Unknown Rx insulin lispro 100 unit/mL 3 unit subcut TIDAC SLIDINING 03/15/23 Unknown Rx subcutaneous pen (Humalog KwikPen SCALE #1 mL (U-100) Insulin) buspirone 15 mg tablet 15 mg PO TID Mood 11/22/23 11/30/24 History docusate sodium 100 mg capsule 100 mg PO BID PRN constipation 11/22/23 Unknown History doxycycline hyclate 100 mg capsule 100 mg PO BID 11/22/23 Unknown History fenofibrate 54 mg tablet 54 mg PO QDAY 11/22/23 Unknown History insulin glargine-yfgn 100 unit/mL 16 unit subcut QHS Blood sugar 11/22/23 Unknown History (3 mL) subcutaneous pen olanzapine 5 mg tablet 5 mg PO QHS 11/22/23 Unknown History omeprazole 40 mg capsule,delayed 40 mg PO QDAY 11/22/23 11/30/24 History release ondansetron 4 mg disintegrating 2 mg PO TID Nausea 11/22/23 Unknown History tablet sertraline 100 mg tablet 100 mg PO QDAY 11/22/23 11/30/24 History zonisamide 50 mg capsule 50 mg PO BID 11/22/23 11/30/24 History apixaban 5 mg tablet 5 mg PO BID #180 tabs 02/14/24 11/26/24 Rx amiodarone 200 mg tablet 100 mg (1/2 x 200 mg) PO DAILY BP 02/19/24 11/30/24 Rx #90 tabs carvedilol 3.125 mg tablet 3.125 mg PO BID dose decreased for 03/31/24 11/30/24 Rx slow HR. #60 tabs Allergy/AdvReac Type Severity Reaction Status Date / Time rofecoxib Allergy Severe Swelling Verified 11/30/24 08:35 Family History Mother Heart disease Sister Heart disease Myocardial infarction CVA (cerebral vascular accident) Diabetes Brother CVA (cerebral vascular accident) Other Persistent atrial fibrillation Surgical History Hx of colonoscopy Hx of lumbar discectomy Hx of total knee arthroplasty History of knee replacement, total Social History Smoking Status: Never smoker alcohol intake: current alcohol intake frequency: holidays/special occasions only Alcohol type: beer substance use type: does not use caffeine: Yes Type: coffee Number of servings: 2 Review of Systems (Anesthesia) ROS Narrative System reviewed and no additional complaints, except as documented.
[2024-11-30] MEDS: Cefazolin 2 GM in Syringe IV (10:03)
[2024-11-30] MEDS: Bupivacaine 0.25% 30 ML Vial (10:16)
[2024-11-30] MEDS: Lidocaine 1% (30 ml sdv) 30 ML Vial (10:16)
[2024-11-30] MEDS: Protamine Sulfate 50 MG/5 ML Vial IV (11:11)
--- NOTE | 2024-11-30 11:18 | EX.PCM.DISCH ---
Discharge Instructions Diet Discharge Diet: No restrictions Activity Lifting Restrictions: do not lift > 20 lbs with left arm for 14 days Additional Activity Instructions:: do not submerge incision for 14 days Dressing / Incision Call your doctor if your incision/area has: Sudden Increased Bleeding, Increased Pain/ Swelling, Increased Redness and Foul Smelling Discharge Call your doctor if you observe: Fever of 101 or Higher, Coldness, Increased Pain and Numbness or Tingling Remove Dressing in: 2 days Cleanse incision/area with: Soap & Water Follow Up Care Test Results: Test results from this visit will be discussed in further detail at your follow-up appointment, if applicable. Discharge Plan Admission Attending Provider: Quan Garvey Primary Care Provider: Lester Jarvis Instructions Print Language: Vietnamese Discharge Orders/Prescriptions Prescriptions: New oxycodone 5 mg tablet 5 mg PO Q8H PRN (Reason: pain) 2 Days Qty: 6 0RF Continued multivitamin [Daily Multi-Vitamin] Tablet 1 tab PO DAILY tamsulosin 0.4 mg capsule 0.4 mg PO BID docusate sodium 100 mg capsule 100 mg PO BID PRN (Reason: constipation) olanzapine 5 mg tablet 5 mg PO QHS ondansetron 4 mg tablet,disintegrating 2 mg PO TID fenofibrate 54 mg tablet 54 mg PO QDAY omeprazole 40 mg capsule,delayed release(DR/EC) 40 mg PO QDAY zonisamide 50 mg capsule 50 mg PO BID doxycycline hyclate 100 mg capsule 100 mg PO BID sertraline 100 mg tablet 100 mg PO QDAY atorvastatin 80 mg Tablet 80 mg PO QHS aspirin 81 mg Capsule 81 mg PO DAILY buspirone 15 mg tablet 15 mg PO TID ascorbic acid (vitamin C) 500 mg tablet 1,000 mg PO LUNCH magnesium chloride [Mag 64] 64 mg tablet,delayed release (DR/EC) 128 mg PO DAILY calcium carbonate 200 mg calcium (500 mg) Tablet,Chewable 500 mg PO BIDCM Qty: 1 0RF finasteride 5 mg Tablet 5 mg PO DAILY Qty: 1 0RF insulin lispro [Humalog KwikPen Insulin] 100 unit/mL Insulin Pen 3 unit subcut TIDAC Qty: 1 0RF Protocol: 4. Sliding Scale Insulin High-Med Dosing Condition: 150-199 mg/dl = 2 units Condition: 200-259 mg/dl = 4 units Condition: 260-324 mg/dl = 6 units Condition: 325-374 mg/dl = 8 units Condition: 375-409 mg/dl = 10 units Condition: 410-449 mg/dl = 11 units Condition: Greater than 449 call physician Protocol Text: - Use for Total Daily Dose of Insulin 56-80 units - Patient who are insulin resistant or septic HIGH MEDIUM DOSING ALGORITHM cholecalciferol (vitamin D3) 25 mcg (1,000 unit) Tablet 50 mcg PO DAILY Qty: 1 0RF acetaminophen 500 mg tablet 1,000 mg PO Q8H PRN PRN (Reason: Pain 1-10) Qty: 1 0RF ferrous sulfate 325 mg (65 mg iron) tablet 325 mg PO DAILY Qty: 30 0RF Rx Instructions: give this at noon daily with the ferrous sulfate. insulin glargine-yfgn 100 unit/mL (3 mL) insulin pen 16 unit SUBCUT QHS amiodarone 200 mg tablet 100 mg PO DAILY Qty: 90 3RF carvedilol 3.125 mg tablet 3.125 mg PO BID Qty: 60 11RF Rx Instructions: must administer with a meal/food Held apixaban 5 mg tablet 5 mg PO BID Qty: 180 3RF Hold Instructions: Resume on 12/01/24. PM dose Disposition Disposition (needs filled in before D/C Order can be placed): Home, Self Care
--- NOTE | 2024-11-30 11:22 | OP.PCM_ITS ---
Operative Report (Standard) Operative Information Date of Procedure: 11/30/24 Pre-Operative Diagnosis: ESRD Post-Operative Diagnosis: same Surgery/Procedure Performed: left brach-ceph fistula clinical informatics director: Yes Quality Assurance Monitor Chassis: Lupe Cristobal Tasks completed by accounts receivable assistant: Opening, Closing, Opening & closing, Hemostasis: Tie and Retracting Type of Anesthesia: Local MAC, Local and MAC RN Documented Start/Stop Times: Operation Date: 11/30/24 10:00 Case Time Into Pre-Op 11/30/24 08:19 Out of Pre-Op 11/30/24 09:52 Anesthesia Start 11/30/24 09:55 Into Room 11/30/24 09:55 Procedure Start 11/30/24 10:17 Procedure End 11/30/24 11:25 Anesthesia End 11/30/24 11:29 Out of Room 11/30/24 11:29 Into Recovery 11/30/24 11:30 Out of Recovery 11/30/24 11:54 Into Phase II Recovery 11/30/24 11:56 Out of Phase II 11/30/24 12:44 Procedure Start Time: 10:15 Procedure Stop Time: 11:20 Select all DRAINS/GRAFTS/IMPLANTS that apply: None Estimated Blood Loss: 7 Specimen collected: No Description of surgery: HPI: Patient is a 74-year-old male with end-stage renal disease currently on dialysis. He had vein mapping which revealed satisfactory left upper arm cephalic vein. He presents now for [place] fistula creation. Description of procedure: Upon obtaining form consent and verification correct patient procedure site the patient was taken the operating was positioned prepped and draped in usual sterile fashion. Timeouts performed and moderate sedation was administered by anesthesia. Ultrasound used to evaluate the cep halic vein is found patent and satisfactory caliber throughout the upper arm and in close proximity to the brachial artery just distal to the antecubital crease. Skin overlying the vessel at this location was anesthetized with 1% lidocaine and transverse incision made 1 fingerbreadth distal to the antecubital crease. Bovie was then used to dissect down through subcutaneous tissue and self-retain ing retractor put in position. Once the cephalic vein was visualized sharp dissection was dissect free proximal and distal and sidebranches ligated with silk ties and divided. Self-retaining retractors moved deeper in the wound and dissection carried down to level the fascia. The fascia was incised in cruciate configuration exposing the brachial artery. Sharp dissection used to dissect free proximal and distal and right angle used to place a vessel loop. The patient was in heparinized allowed to circulate for 3 minutes and the cephalic vein ligated distally in the field and divided. The vessel was then dilated up to 3 and half millimeters and flushed with heparinized saline. The brachial artery was then occluded with Vesseloops and longitudinal arteriotomy created with an 11 blade and extended with pot scissors. The vein was then beveled to match the arteriotomy and anastomosis performed using 6-0 Prolene in a running fashion. After completing suture line clamps removed and satisfactory stasis was noted. There is a palpable thrill in the fistula and triphasic radial and ulnar signals at the wrist which were unchanged from prior to surgery. Heparin was reversed with protamine and the incision inspected for hemostasis. Was then closed with 3-0 Vicryl, 4 Monocryl, Dermabond for the skin. At the inclusion the case the patient was awakened from anesthesia taken recovery room with anticipated discharge home. Surgical Findings: see above Complications Complications: No
--- NOTE | 2024-11-30 11:37 | PCM.POST.ANE ---
Anesthesia: Postop Eval I Current Vital Signs Temperature: 97.7 F Pulse Rate: 65 Blood Pressure: 135/74 Respiratory Rate: 20 Pulse Ox: 98 Oxygen Delivery Method: Room Air Assessment Airway patent: Yes Spontaneous unlabored respirations: Yes Mental status: Awake and Calm nausea: No Vomiting: No Anesthesia Complication: No Fluid Hydration Crystalloid volume administer (ml): 250 Total IV fluid infused: 250 Progress Note Anesthesia document: Postop Eval 1 completed: Yes
--- NOTE | 2024-11-30 13:53 | POSTOPAN2_ITS ---
Anesthesia Postop Eval I Sum Postop Eval Completion status Anesthesia document: Postop Eval 1 completed: Yes Anesthesia Postop Eval I Summary Anesthesia Postop Eval I Summary: Anesthesia Postop Eval I: Assessment Summary Airway patent Yes 11/30/24 11:38 [email or web address] Spontaneous unlabored Yes 11/30/24 11:38 [email or web address] respirations Mental status Awake,Calm 11/30/24 11:38 [email or web address] nausea No 11/30/24 11:38 [employer]NATIONAL [email or web address] Vomiting No 11/30/24 11:38 [email or web address] Anesthesia Postop Eval I: Fluid Summary Crystalloid volume administer 250 11/30/24 11:38 [email or web address] (ml) Colloids volume administered ( ml) Blood Product volume administered (ml) Total IV fluid infused 250 11/30/24 11:38 [email or web address] Anesthesia Postop Eval I: Summary Notes Anesthesia Complication No 11/30/24 11:38 [email or web address] Anesthesia Complication Comment: Post-operative progress note Anesthesia: Postop Eval II Evaluation Mental status: Awake Pain Level: 0 nausea: No Vomiting: No
--- NOTE | 2024-11-30 13:53 | PCM.POSTANE2 ---
Anesthesia Postop Eval I Sum Postop Eval Completion status Anesthesia document: Postop Eval 1 completed: Yes Anesthesia Postop Eval I Summary Anesthesia Postop Eval I Summary: Anesthesia Postop Eval I: Assessment Summary Airway patent Yes 11/30/24 11:38 [email or web address] Spontaneous unlabored Yes 11/30/24 11:38 [email or web address] respirations Mental status Awake,Calm 11/30/24 11:38 [email or web address] nausea No 11/30/24 11:38 [email or web address] Vomiting No 11/30/24 11:38 [email or web address] Anesthesia Postop Eval I: Fluid Summary Crystalloid volume administer 250 11/30/24 11:38 [email or web address] [email or web address] (ml) Colloids volume administered ( ml) Blood Product volume administered (ml) Total IV fluid infused 250 11/30/24 11:38 [email or web address] Anesthesia Postop Eval I: Summary Notes Anesthesia Complication No 11/30/24 11:38 [email or web address] Anesthesia Complication Comment: Post-operative progress note Anesthesia: Postop Eval II Evaluation Mental status: Awake Pain Level: 0 nausea: No Vomiting: No
== END 2024-11-30 12:45 | disposition home or self-care (01) ==
LOC: SDC 08:14 → AC 08:15
PROVIDERS: PCP Family Medicine; Referring Provider Surgery Trauma Surgery; Visit Provider Surgery Trauma Surgery
PROC: (CPT 36821; principal; 2024-11-30 09:45)
DX: Z45.2 Encounter for adjustment and management of vascular access device (principal); I13.2 Hypertensive heart and chronic kidney disease with heart failure and with stage 5 chronic kidney disease, or end stage renal disease; N18.6 End stage renal disease; I50.42 Chronic combined systolic (congestive) and diastolic (congestive) heart failure; I48.11 Longstanding persistent atrial fibrillation; E11.22 Type 2 diabetes mellitus with diabetic chronic kidney disease; Z79.4 Long term (current) use of insulin; Z99.2 Dependence on renal dialysis; E78.00 Pure hypercholesterolemia, unspecified; Z79.82 Long term (current) use of aspirin; Z79.899 Other long term (current) drug therapy
CPT/HCPCS: 36821; 36415; 80048; 82962; 85027; A4648; A4216

== ENCOUNTER → 2025-02-22 | Outpatient (CLI) | payer MEDICARE, MEDICAID, SELFPAY ==
--- NOTE | 2025-02-22 09:47 | AVDS_ITS ---
Reason For Study Reason For Study: S/P LUE AVF placement LEFT Lt Inflow - 260.5/137.2 cm/s Lt Inflow - 1577 ml/min Lt Anastomosis - 706.0/385.1 cm/s Lt Anastomosis - 2060 ml/min Lt Prox Graft - 192.2/115.5 cm/s Lt Prox Graft - 6516 ml/min Lt Mid Graft - 81.5/46.8 cm/s Lt Mid Graft - 1228 ml/min Lt Dist Graft - 135.2/86.9 cm/s Lt Dist Graft - 1594 ml/min Lt Outflow - 128.6/78.1 cm/s Lt Outflow - 1337 ml/min 2 Branches noted. First at Anastomosis Second between prox and mid graft. VL/AV Fistula/Dialysis Graft Scan Interpretation Summary Patent left upper extremity fistula with elevated velocities and anastomosis, a dequate flow volume and caliber throughout. Prominent branches noted proximal and mid fistula. Ordering Physician: Machelle Baca Referring Physician: Lester Jarvis Performed By: Lloyd Luz RVT
== END | disposition home or self-care (01) ==
LOC: CVS 09:46
PROVIDERS: PCP Family Medicine; Referring Provider Physician Assistant; Visit Provider Physician Assistant
DX: I70.0 Atherosclerosis of aorta (principal); N18.6 End stage renal disease; Z99.2 Dependence on renal dialysis
CPT/HCPCS: 93990

== ENCOUNTER 2025-03-09 14:07 | Emergency (ER) | payer MEDICARE, MEDICAID, SELFPAY ==
[2025-03-09] VITALS (7 sets, daily range): BP systolic 92–148; BP diastolic 38–78; PULSE 66–95; RESP 14–19; TEMP 36.9; O2SAT 95–100
--- NOTE | 2025-03-09 15:19 | EX.ED.DYSGE1 ---
HPI History of Present Illness Chief Complaint: Complaint Narrative Narrative: Patient is a 75-year-old male with history of atrial fibrillation on Eliquis, chronic kidney disease on dialysis Saturday states that he went to dialysis today, iron deficiency anemia, CHF, CVA who presented to the emergency department the chief complaint of decreased urine output as well as blood in his urine. He states that on of this past week he noted that he had decreased urine output and states that he only urinated approximately a shot glass worth of urine. He states that recently he noted that he started urinating blood and states that it is thick. He denies any other urinary symptoms such as painful urination or increased frequency of urinating. [facility] Medical History A-V fistula History of Clostridium difficile infection Wears dentures Depression Anxiety Insulin dependent diabetes mellitus Walker as ambulation aid Ambulates with cane Arthritis History of renal dialysis High cholesterol Restless legs Back pain Dietary restriction Shortness of breath on exertion Leg cramps History of pain when walking History of edema History of Holter monitoring History of stress test History of echocardiogram Cardiology follow-up encounter Atrial tachycardia History of CVA (cerebrovascular accident) Left-sided weakness Diabetes mellitus, type 2 Persistent atrial fibrillation BPH (benign prostatic hyperplasia) Depression Normochromic normocytic anemia Iron deficiency History of iron deficiency Cerebral artery occlusion with cerebral infarction Acute right MCA stroke Longstanding persistent atrial fibrillation Chronic combined systolic and diastolic CHF (congestive heart failure) 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 (LBBB) Acute on chronic combined systolic (congestive) and diastolic (congestive) heart failure (02/02/20) History of non-ST elevation myocardial infarction (NSTEMI) (02/02/20) Non-ischemic cardiomyopathy NSVT (nonsustained ventricular tachycardia) Obesity CVA (cerebral vascular accident) (12/2017) Secondary pulmonary arterial hypertension GERD (gastroesophageal reflux disease) Hyperlipidemia Essential (primary) hypertension CKD (chronic kidney disease), stage III Paroxysmal atrial fibrillation Anemia Chronic low back pain Osteoarthritis Home Medications ?Medication ?Instructions ?Recorded ?Last Taken ?Type multivitamin (Daily Multi-Vitamin 1 tab PO DAILY Supplement 02/12/22 12/07/22 History tablet) tamsulosin 0.4 mg capsule 0.4 mg PO BID Urine retention 02/12/22 11/30/24 History ascorbic acid (vitamin C) 500 mg 1,000 mg PO LUNCH Supplement 02/28/23 Unknown History tablet acetaminophen 500 mg tablet 1,000 mg (2 x 500 mg) PO Q8H PRN 03/15/23 Unknown Rx PRN Pain 1-10 #1 TAB ferrous sulfate 325 mg (65 mg 325 mg PO DAILY supplement #30 tabs 03/15/23 12/07/22 Rx iron) tablet finasteride 5 mg tablet 5 mg PO DAILY #1 TAB 03/15/23 Unknown Rx insulin lispro 100 unit/mL 3 unit subcut TIDAC SLIDINING 03/15/23 Unknown Rx subcutaneous pen (Humalog KwikPen SCALE #1 mL (U-100) Insulin) buspirone 15 mg tablet 15 mg PO TID Mood 11/22/23 11/30/24 History docusate sodium 100 mg capsule 100 mg PO BID PRN constipation 11/22/23 Unknown History doxycycline hyclate 100 mg capsule 100 mg PO BID 11/22/23 Unknown History insulin glargine-yfgn 100 unit/mL 16 unit subcut QHS Blood sugar 11/22/23 Unknown History (3 mL) subcutaneous pen olanzapine 5 mg tablet 5 mg PO QHS 11/22/23 Unknown History omeprazole 40 mg capsule,delayed 40 mg PO QDAY 11/22/23 11/30/24 History release ondansetron 4 mg disintegrating 2 mg PO TID Nausea 11/22/23 Unknown History tablet sertraline 100 mg tablet 100 mg PO QDAY 11/22/23 11/30/24 History zonisamide 50 mg capsule 50 mg PO BID 11/22/23 11/30/24 History acidophilus 100 million cap PO 12/08/24 Unknown History cell-pectin, citrus 10 mg capsule aspirin 81 mg tablet,delayed 81 mg PO QDAY 12/08/24 Unknown History release (Adult Low Dose Aspirin) fenofibrate 120 mg tablet 120 mg PO QDAY 12/08/24 Unknown History magnesium oxide 500 mg capsule 500 mg PO QHS 12/08/24 Unknown History rosuvastatin 20 mg tablet 20 mg PO QDAY 12/08/24 Unknown History sennosides 8.6 mg-docusate sodium 2 tab-cap PO BID 12/08/24 Unknown History 50 mg tablet (Senna with Docusate Sodium) amiodarone 200 mg tablet 100 mg (1/2 x 200 mg) PO DAILY BP 02/17/25 Unknown Rx #90 tabs apixaban 2.5 mg tablet 2.5 mg PO BID #60 tabs 02/18/25 Unknown Rx cholecalciferol (vitamin D3) 25 50 mcg PO DAILY 02/18/25 Unknown History mcg (1,000 unit) tablet polyethylene glycol ea miscellaneous 02/18/25 Unknown History torsemide 100 mg tablet 100 mg PO QDAY 02/18/25 Unknown History cephalexin 500 mg capsule 500 mg PO Q12H 7 days #14 caps 03/09/25 Unknown Rx Allergy/AdvReac Type Severity Reaction Status Date / Time rofecoxib Allergy Severe Swelling Verified 03/09/25 14:10 Family History Mother Heart disease Sister Heart disease Myocardial infarction CVA (cerebral vascular accident) Diabetes Brother CVA (cerebral vascular accident) Other Persistent atrial fibrillation Surgical History Hx of colonoscopy Hx of lumbar discectomy Hx of total knee arthroplasty History of knee replacement, total Social History Smoking Status: Never smoker alcohol intake: current alcohol intake frequency: holidays/special occasions only Alcohol type: beer substance use type: does not use caffeine: Yes Type: coffee Number of servings: 2 ROS ROS ED ROS Narrative Constitutional: Denies fevers, chills, headaches, lightness, dizziness Eyes: Denies change in visual vision blurry vision Cardiovascular: Denies chest pain or shortness of breath Respiratory: Denies coughing wheezing shortness of breath Abdomen: Denies abdominal pain nausea vomit diarrhea : Complains of no urine output as noted above with hematuria Neurological: Denies any numbness, wheeze, tingling Musculoskeletal: Denies back pain Skin: Denies any rashes or lesions EXAM Physical Exam Narrative Exam Narrative: General: Patient is lying in bed rest comfortably did not appear to be acute distress Head: Atraumatic, normocephalic Eyes: PERRL bilaterally, EOMI blood, no conjunctival injection noted Neck: Soft, supple, trachea midline Cardiovascular: Regular rate and rhythm no murmurs gallops rubs noted Respiratory: Clear to auscultation bilaterally no rales rhonchi or wheezes noted Abdomen: Soft, nondistended, nontender to palpation Extremities: +4/5 strength noted in the bilateral upper and lower extremities, radial pulses +2/4 in the bilateral extremities, no pedal edema exam Neurological: Patient follow commands knew that he was at [facility] years 2024 Skin: Warm, dry contact no rashes or lesions noted Const Vital Signs: 03/09/25 14:07 03/09/25 14:09 03/09/25 16:07 Temperature 98.5 F 98.5 F Temperature Source Oral Oral Pulse Rate 95 94 66 Respiratory Rate 19 H 19 H 16 Blood Pressure 106/66 106/66 134/78 H Blood Pressure Mean 79 79 96 Pulse Ox 99 98 98 Oxygen Delivery Method Room Air Room Air Room Air 03/09/25 18:00 03/09/25 20:13 03/09/25 20:19 Temperature Temperature Source Pulse Rate 78 75 Respiratory Rate 14 18 Blood Pressure 148/78 H 92/52 L 106/71 Blood Pressure Mean 101 65 82 Pulse Ox 95 100 Oxygen Delivery Method Room Air Room Air MDM MDM MDM Narrative Medical decision making narrative: Patient is a 75-year-old male who presented to the emergency department with a chief complaint of little to no urine output with hematuria. On the differential diagnosis includes but limited to worsening renal dysfunction, UTI. Once workup is obtained reviewed he will be reevaluated. Patient will be bladder scanned. Patient's CBC reviewed showed no evidence leukocytosis white blood count 5.6, he was 10.7, platelet count of 212. Patient's sodium is 136, potassium normal 3.7, creatinine was 4.04 he is on dialysis he went today to dialysis. Patient's AST and ALT are 45 and 31 respectively. Patient's urinalysis reviewed showed 500 leukocyte esterase greater than 100 white cells with 1+ bacteria he will be given a gram Rocephin this will be sent for culture he will be placed on Keflex. Urine sample was ultimately obtained via straight catheterization after IV hydration and repeat bladder scan performed. He was advised to return with worsening symptoms or concerns otherwise he is to follow up with his doctor in outpatient setting. He is agreeable to plan as well as family numbers at bedside all question concerns answered he is discharged home in stable condition. Lab Data Labs: Laboratory Results - last 24 hr 03/09/25 03/09/25 15:40 19:19 WBC 5.6 RBC 3.07 L Hgb 10.7 L Hct 32.3 L MCV 105.2 H MCH 34.9 H MCHC 33.1 RDW Std Deviation 59.1 H RDW Coeff of Whitney 16.0 H Plt Count 212 MPV 10.2 Immature Gran % (Auto) 0.400 Neut % (Auto) 72.9 H Lymph % (Auto) 8.5 L Lares % (Auto) 13.7 H Eos % (Auto) 4.1 Baso % (Auto) 0.4 Absolute Neuts (auto) 4.1 Absolute Lymphs (auto) 0.47 L Nucleated RBC % 0 Sodium 139 Potassium 3.7 Chloride 95 L Carbon Dioxide 27.3 Anion Gap 17 H BUN 14 Creatinine 4.04 H Est GFR (MDRD) Non-Af 15 L BUN/Creatinine Ratio 3.4 L Glucose 190 H Calcium 9.0 Total Bilirubin 0.36 AST 45 H ALT 31 Alkaline Phosphatase 83 Total Protein 6.6 Albumin 3.8 Globulin 2.8 Albumin/Globulin Ratio 1.4 Urine Color Brown Urine Clarity Turbid Urine pH 6.5 Ur Specific [place] 1.010 Urine Protein 500 H Urine Glucose (UA) Normal Urine Ketones Negative Urine Occult Blood 250 H Urine Nitrite Negative Urine Bilirubin Negative Urine Urobilinogen Normal Ur Leukocyte Esterase 500 H Urine RBC > 100 SEEN Urine WBC >100 SEEN Ur Squamous Epith Cells 0 SEEN Urine Bacteria 1+ Urine Mucus 0 SEEN Discharge Plan Triage Chief Complaint: Complaint ED Provider: Satya Mcgee Dx/Rx/DC Orders Clinical Impression: Hematuria, Essential (primary) hypertension, Diabetes mellitus, type 2, Chronic anticoagulation, CKD (chronic kidney disease), Urinary tract infection Prescriptions: New cephalexin 500 mg capsule 500 mg PO Q12H 7 Days Qty: 14 0RF No Action multivitamin [Daily Multi-Vitamin] Tablet 1 tab PO DAILY tamsulosin 0.4 mg capsule 0.4 mg PO BID docusate sodium 100 mg capsule 100 mg PO BID PRN (Reason: constipation) olanzapine 5 mg tablet 5 mg PO QHS ondansetron 4 mg tablet,disintegrating 2 mg PO TID omeprazole 40 mg capsule,delayed release(DR/EC) 40 mg PO QDAY zonisamide 50 mg capsule 50 mg PO BID doxycycline hyclate 100 mg capsule 100 mg PO BID sertraline 100 mg tablet 100 mg PO QDAY magnesium oxide 500 mg capsule 500 mg PO QHS rosuvastatin 20 mg tablet 20 mg PO QDAY fenofibrate 120 mg tablet 120 mg PO QDAY acidophilus-pectin, citrus 100 million cell-10 mg capsule PO sennosides-docusate sodium [Senna with Docusate Sodium] 8.6-50 mg tablet 2 tab-cap PO BID aspirin [Adult Low Dose Aspirin] 81 mg tablet,delayed release (DR/EC) 81 mg PO QDAY polyethylene glycol Powder miscellaneous Rx Instructions: 17 gm mix with 4-8 ounces of liquid daily cholecalciferol (vitamin D3) 25 mcg (1,000 unit) tablet 50 mcg PO DAILY torsemide 100 mg tablet 100 mg PO QDAY apixaban 2.5 mg tablet 2.5 mg PO BID Qty: 60 11RF buspirone 15 mg tablet 15 mg PO TID ascorbic acid (vitamin C) 500 mg tablet 1,000 mg PO LUNCH finasteride 5 mg Tablet 5 mg PO DAILY Qty: 1 0RF insulin lispro [Humalog KwikPen Insulin] 100 unit/mL Insulin Pen 3 unit subcut TIDAC Qty: 1 0RF Protocol: 4. Sliding Scale Insulin High-Med Dosing Condition: 150-199 mg/dl = 2 units Condition: 200-259 mg/dl = 4 units Condition: 260-324 mg/dl = 6 units Condition: 325-374 mg/dl = 8 units Condition: 375-409 mg/dl = 10 units Condition: 410-449 mg/dl = 11 units Condition: Greater than 449 call physician Protocol Text: - Use for Total Daily Dose of Insulin 56-80 units - Patient who are insulin resistant or septic HIGH MEDIUM DOSING ALGORITHM acetaminophen 500 mg tablet 1,000 mg PO Q8H PRN PRN (Reason: Pain 1-10) Qty: 1 0RF ferrous sulfate 325 mg (65 mg iron) tablet 325 mg PO DAILY Qty: 30 0RF Rx Instructions: give this at noon daily with the ferrous sulfate. insulin glargine-yfgn 100 unit/mL (3 mL) insulin pen 16 unit SUBCUT QHS amiodarone 200 mg tablet 100 mg PO DAILY Qty: 90 3RF Primary Care Provider: Lester Jarvis Referrals: Lester Jarvis MD [Primary Care Provider] - Activity Restrictions/Additional Instructions: Take antibiotics as prescribed. Return with worsening symptoms or any concerns. Does look like you do have a urinary tract infection. Print Language: Frisian Disposition Disposition: Home, Self Care
[2025-03-09] MEDS: 0.9% Normal Saline (1000mL) 1,000 ML 999 ML IV (15:38)
[2025-03-09 15:51] LABS: Hematocrit 32.3 % (40-54); Hemoglobin 10.7 g/dL (13.0-16.5); Immature Granulocytes Count 0.020 X10^3/uL (0.0-0.0); Mean Corp Hgb Conc 33.1 g/dL (32-36); Mean Corpuscular Volume 105.2 fL (80-94); Mean Platelet Vol. 10.2 fl (6.2-12.0); NRBC Flagged by Analyzer 0 % (0-5); POSITIVE DIFFERENTIAL YES; Platelet Count 212 K/mm3 (150-450); RBC Distribution Width CV 16.0 % (11.6-14.6); RBC Distribution Width SD 59.1 fl (35.1-43.9); Red Blood Count 3.07 M/mm3 (4.6-6.2); White Blood Count 5.6 K/mm3 (4.4-11.0)
[2025-03-09 16:16] LABS: AST(SGOT) 45 U/L (<=37); Alanine Aminotransfer ALT/SGPT 31 U/L (<=46); Albumin, Serum 3.8 g/dL (3.4-4.8); Alkaline Phosphatase 83 U/L (40-129); Anion Gap 17 (5-15); BUN 14 mg/dL (4-19); BUN/Creat Ratio 3.4 RATIO (10-20); Calcium,Total 9.0 mg/dL (7.6-11.0); Carbon Dioxide 27.3 mmol/L (21.0-32.0); Chloride 95 mmol/L (98-108); Globulin 2.8 g/dL (2.2-4.2); Glucose 190 mg/dL (70-99); Potassium 3.7 mmol/L (3.3-5.1)
[2025-03-09 19:23] LABS: Mucous, Urine 0 SEEN /hpf (<or=2+); Squamous Epithelial Cells - UA 0 SEEN /hpf (0-5)
[2025-03-09 19:47] LABS: Color, Urine Brown (Yellow); Glucose, Dipstick Normal (Normal); Ketone-Dipstick Negative (Negative); Leukocyte Esterase-Dipstick 500 /ul (Negative); Nitrite-Dipstick Negative (Negative); Occult Blood-Urine 250 /ul (Negative); Protein-Dipstick 500 mg/dl (Negative); Specific Gravity, Urine 1.010 (1.002-1.030); Urine Bilirubin Dipstick Negative (Negative)
[2025-03-09 20:42] LABS: Red Blood Cells-Urine > 100 SEEN /hpf (0-5)
== END 2025-03-09 21:50 | disposition home or self-care (01) ==
PROVIDERS: Emergency Provider Emergency Medicine; PCP Family Medicine; Visit Provider Emergency Medicine
DX: R31.9 Hematuria, unspecified (principal); I50.43 Acute on chronic combined systolic (congestive) and diastolic (congestive) heart failure; I13.0 Hypertensive heart and chronic kidney disease with heart failure and stage 1 through stage 4 chronic kidney disease, or unspecified chronic kidney disease; I48.0 Paroxysmal atrial fibrillation; E11.22 Type 2 diabetes mellitus with diabetic chronic kidney disease; Z79.4 Long term (current) use of insulin; N18.30 Chronic kidney disease, stage 3 unspecified; N39.0 Urinary tract infection, site not specified; Z79.01 Long term (current) use of 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s; E78.00 Pure hypercholesterolemia, unspecified; Z99.2 Dependence on renal dialysis; Z86.73 Personal history of transient ischemic attack (TIA), and cerebral infarction without residual deficits; I25.2 Old myocardial infarction; N40.0 Benign prostatic hyperplasia without lower urinary tract symptoms; Z79.899 Other long term (current) drug therapy; F41.9 Anxiety disorder, unspecified; K21.9 Gastro-esophageal reflux disease without esophagitis; F32.A Depression, unspecified; Z79.82 Long term (current) use of aspirin; Z96.659 Presence of unspecified artificial knee joint
CPT/HCPCS: 80053; 81001; 85025; 87086; 87088; 96361; 96365; 99283; A4216

== ENCOUNTER 2025-03-18 09:15 | Day surgery (SDC) | payer MEDICARE, MEDICAID, SELFPAY ==
[2025-03-17 08:13] VITALS: BMI 36.0
--- NOTE | 2025-03-18 13:43 | PCM.OPRPT ---
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 He has developed increasing edema particularly in the forearm and the hand so he presents now for fistulogram to assess for outflow stenosis. Description of procedure: Upon obtaining informed consent and verification correct patient procedure site the patient was taken to the Contract Admin where he was positioned prepped and draped in usual sterile fashion. Time was then performed consultation administered Versed and fentanyl. Skin overlying the fistula was anesthetized with 1% lidocaine the vessel accessed under ultrasound guidance with a micropuncture needle wire. This then exchanged for a 6 [place] sheath advanced without resistance. Through the 6 [place]i sheath digital subtraction fistulogram was performed from the access site through to the central venous system and the atriocaval junction. This revealed a widely patent large caliber fistula with brisk contrast transit and no evidence of stenosis and no significant chest wall collaterals. There were 2 large branches in the proximal and mid fistula that appeared to at least in part empty into the deep system. The fistula was then compressed and reflux fistulogram into the arterial anastomosis performed revealing widely patent arterial anastomosis with no stenosis identified. It was felt that the branches were the most likely culprit for his edema and that these would be best suited with surgical ligation. Seeing no lesions that required intervention a 3-0 Ethilon pursestring was then placed at the access site and the sheath removed followed by 5 minutes of manual pressure. After adequate hemostasis was observed the patient was taken to the recovery room with plan discharged home after bedrest. Surgical Findings: See above Complications Complications: No
== END 2025-03-18 12:25 | disposition home or self-care (01) ==
PROVIDERS: PCP Family Medicine; Referring Provider Surgery Trauma Surgery; Visit Provider Surgery Trauma Surgery
DX: Z45.2 Encounter for adjustment and management of vascular access device (principal); Z79.4 Long term (current) use of insulin; E11.22 Type 2 diabetes mellitus with diabetic chronic kidney disease; R60.0 Localized edema; I12.9 Hypertensive chronic kidney disease with stage 1 through stage 4 chronic kidney disease, or unspecified chronic kidney disease; N18.9 Chronic kidney disease, unspecified; Z99.2 Dependence on renal dialysis; Z79.82 Long term (current) use of aspirin; Z79.899 Other long term (current) drug therapy
CPT/HCPCS: 36901; 76937; 99152; C1894

== ENCOUNTER 2025-04-05 12:41 | Day surgery (SDC) | payer MEDICARE, MEDICAID, SELFPAY ==
--- NOTE | 2025-03-26 20:00 | PAT.ANESEVAL ---
Pre-Assessment Diagnosis/Proposed Procedure Planned Operative Procedure(s): (L) Left Upper Extremity Fistula Revision with Branch Ligation Anesthesia History Anesthesia History - dietetic intern: Anesthesia History - dietetic intern Hx Hospitalization No 03/26/25 10:50 Any Problems With Anesthesia No 03/26/25 10:50 Cholinesterase deficiency No 03/26/25 10:50 You/Your Family Experience No 03/26/25 10:50 fever (hyperthermia) with Relationship Recent Exposure to Contagious No 11/30/24 08:42 Disease Does patient have nerve Yes: SPINAL CORD STIMULATOR, 03/26/25 10:50 stimulator IS SHUT OFF Patient instructed to have device shut off --Does patient have Pacemaker or ICD? When Was Last Pacemaker Check QUESTION #4 FULL TEXT: You/Your Family Experience fever (hyperthermia) with Anesthesia Last Oral Intake Last Oral intake: Last Oral Intake NPO since Meds taken in AM with sips of water? Meds patient instructed to take am of surgery PONV PONV - dietetic intern: PONV - dietetic intern Female No 03/26/25 10:50 HX of Motion Sickness No 03/26/25 10:50 HX of N/V After Surgery No 03/26/25 10:50 Non-Smoker Yes 03/26/25 10:50 Duration of Surgery greater Yes 03/26/25 10:50 than 60 minutes Number of Risk Factors 2 03/26/25 10:50 PONV Score Moderate Risk 03/26/25 10:50 Height & Weight Height & Weight: Anesthesia: Height & Weight Height 5 ft 9 in 03/18/25 09:29 Respiratory Assessment Respiratory Assessment - dietetic intern: Respiratory Tract Infection Hx - dietetic intern Hx Respiratory Tract Infection No 03/26/25 10:50 STOP Sleep Apnea STOP Sleep Apnea - dietetic intern: STOP Sleep Apnea - dietetic intern Hx Hypertension Yes: CONTROLLED WITH MED 03/26/25 10:50 Hx Sleep Apnea No 03/26/25 10:50 CPAP Yes 11/30/24 11:30 BIPAP No 02/28/23 16:24 Do you snore loudly (louder No 03/26/25 10:50 than talking or can be heard Do you often feel tired/ No 03/26/25 10:50 fatigued/ sleepy during daytime? Has anyone observed you stop No 03/26/25 10:50 breathing during sleep? STOP Results Negative 03/26/25 10:50 QUESTION #5 FULL TEXT : Do you snore loudly (louder than talking or can be heard through closed doors)? 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 Specify any problems Hx of Preganancy in last 3 N/A 03/26/25 10:50 Months Nurse Filling Out Transfusion BA 03/26/25 10:50 & Questions: Date: 03/26/25 03/26/25 10:50 Time: 10:53 03/26/25 10:50 Patient unable to answer at this time (ie. confused, unrespo /Reproduction History /Reproductive History - dietetic intern: /Reproductive Hx- dietetic intern Hx Now Gestational Age (in weeks): EDC: Hx Hx Para Hx Section SAB No 11/02/24 14:03 PFSH Medical History (Updated 03/26/25 @ 11:01 by Lore Bernardo) Easy bruising Excessive bleeding Gastric reflux Non-smoker A-V fistula History of Clostridium difficile infection Wears dentures Depression Anxiety Insulin dependent diabetes mellitus Walker as ambulation aid Ambulates with cane Arthritis History of renal dialysis High cholesterol Restless legs Back pain Dietary restriction Shortness of breath on exertion Leg cramps History of pain when walking History of edema History of Holter monitoring History of stress test History of echocardiogram Cardiology follow-up encounter Atrial tachycardia History of CVA (cerebrovascular accident) Left-sided weakness Diabetes mellitus, type 2 Persistent atrial fibrillation BPH (benign prostatic hyperplasia) Depression Normochromic normocytic anemia Iron deficiency History of iron deficiency Cerebral artery occlusion with cerebral infarction Acute right MCA stroke Longstanding persistent atrial fibrillation Chronic combined systolic and diastolic CHF (congestive heart failure) 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 (LBBB) Acute on chronic combined systolic (congestive) and diastolic (congestive) heart failure (02/02/20) History of non-ST elevation myocardial infarction (NSTEMI) (02/02/20) Non-ischemic cardiomyopathy NSVT (nonsustained ventricular tachycardia) Obesity CVA (cerebral vascular accident) (12/2017) Secondary pulmonary arterial hypertension GERD (gastroesophageal reflux disease) Hyperlipidemia Essential (primary) hypertension CKD (chronic kidney disease), stage III Paroxysmal atrial fibrillation Anemia Chronic low back pain Osteoarthritis Home Medications ?Medication ?Instructions ?Recorded ?Last Taken ?Type multivitamin (Daily Multi-Vitamin 1 tab PO DAILY Supplement 02/12/22 12/07/22 History tablet) tamsulosin 0.4 mg capsule 0.4 mg PO BID Urine retention 02/12/22 11/30/24 History ascorbic acid (vitamin C) 500 mg 1,000 mg PO LUNCH Supplement 02/28/23 Unknown History tablet acetaminophen 500 mg tablet 1,000 mg (2 x 500 mg) PO Q8H PRN 03/15/23 Unknown Rx PRN Pain 1-10 #1 TAB ferrous sulfate 325 mg (65 mg 325 mg PO DAILY supplement #30 tabs 03/15/23 12/07/22 Rx iron) tablet insulin lispro 100 unit/mL 3 unit subcut TIDAC SLIDINING 03/15/23 Unknown Rx subcutaneous pen (Humalog KwikPen SCALE #1 mL (U-100) Insulin) buspirone 15 mg tablet 15 mg PO TID Mood 11/22/23 11/30/24 History docusate sodium 100 mg capsule 100 mg PO BID PRN constipation 11/22/23 Unknown History doxycycline hyclate 100 mg capsule 100 mg PO BID 11/22/23 Unknown History insulin glargine-yfgn 100 unit/mL 16 unit subcut QHS Blood sugar 11/22/23 Unknown History (3 mL) subcutaneous pen olanzapine 5 mg tablet 5 mg PO QHS 11/22/23 Unknown History omeprazole 40 mg capsule,delayed 40 mg PO QDAY 11/22/23 11/30/24 History release ondansetron 4 mg disintegrating 2 mg PO TID Nausea 11/22/23 Unknown History tablet sertraline 100 mg tablet 100 mg PO QDAY 11/22/23 11/30/24 History zonisamide 50 mg capsule 50 mg PO BID 11/22/23 11/30/24 History aspirin 81 mg tablet,delayed 81 mg PO QDAY 12/08/24 Unknown History release (Adult Low Dose Aspirin) rosuvastatin 20 mg tablet 20 mg PO QDAY 12/08/24 Unknown History sennosides 8.6 mg-docusate sodium 2 tab-cap PO BID 12/08/24 Unknown History 50 mg tablet (Senna with Docusate Sodium) apixaban 2.5 mg tablet 2.5 mg PO BID #60 tabs 02/18/25 Unknown Rx cholecalciferol (vitamin D3) 25 50 mcg PO DAILY 02/18/25 Unknown History mcg (1,000 unit) tablet torsemide 100 mg tablet 100 mg PO QDAY 02/18/25 Unknown History cephalexin 500 mg capsule 500 mg PO Q12H 7 days #14 caps 03/09/25 Unknown Rx amiodarone 200 mg tablet 100 mg PO BID BP 03/26/25 Unknown History fenofibrate 54 mg tablet 108 mg PO DAILY 03/26/25 Unknown History finasteride 5 mg tablet 5 mg PO QHS 03/26/25 Unknown History Allergy/AdvReac Type Severity Reaction Status Date / Time rofecoxib Allergy Severe Swelling Verified 03/26/25 10:39 Family History Mother Heart disease Sister Heart disease Myocardial infarction CVA (cerebral vascular accident) Diabetes Brother CVA (cerebral vascular accident) Other Persistent atrial fibrillation Surgical History (Updated 03/26/25 @ 11:10 by Lore Bernardo) History of insertion of nerve stimulator History of surgery Hx of colonoscopy Hx of lumbar discectomy Hx of total knee arthroplasty History of knee replacement, total Social History Smoking Status: Never smoker alcohol intake: current alcohol intake frequency: holidays/special occasions only Alcohol type: beer substance use type: does not use caffeine: Yes Type: coffee Number of servings: 2 Audit: Pertinent Findings Pertinent Findings EKG Perinent findings: April 24, 2024. Sinus bradycardia. First-degree AV block. Intraventricular conduction defect and left axis possible anterior fascicular block-consider ventricular hypertrophy. Old anterior infarct. Stress test pertinent findings: April 18, 2022. EF of 57%. No areas of reversibility are noted to suggest ischemia. No previous infarct. Echo (EF%) pertinent findings: May 21, 2024. EF of 50%. No aortic valve stenosis noted. Consult pertinent findings: February 18, 2025. Diane WINKLER. 1. Paroxysmal atrial fibrillation?chronic-patient appears to be maintaining sinus rhythm. Continue low-dose amiodarone. Decrease Eliquis to 2.5 mg. Continue to monitor. 2. Nonischemic cardiomyopathy?chronic-EF is down to 45% from 50% in January 2020. 3. History of hypertension?chronic-currently blood pressure is on the lower end. Currently only on diuretics. Additional pertinent findings: 04/01/2024. Holter monitor. Predominant rhythm is normal sinus rhythm/sinus bradycardia with first-degree AV block. Ventricular ectopic beats comprised 0.2% of total complexes. Supraventricular ectopic beats comprise 0.1% of total complexes. There was no atrial fibrillation. Patient kept a 24-hour diary but no symptoms were recorded. Current Visit Impressions Current Visit Impressions: Patient had elevated creatinine at 4.04. He is known to be in chronic renal failure and he is being evaluated prior to having surgery for AV fistula creation at this time. Recommendation Anesthesia Recommendation Anesthesia recommendation: OPTIMIZED for anesthesia
[2025-04-05] VITALS (7 sets, daily range): BP systolic 85–121; BP diastolic 51–62; PULSE 61–69; RESP 16–20; TEMP 36.1–36.3; O2SAT 94–97; BMI 37.0
--- NOTE | 2025-04-05 12:46 | PCM.PRE.AN2 ---
ASA Classification* ASA Classification ASA Classification: 3 Assessment & Plan Anesthesia* Anesthesia Assessment Anesthesia Assessment: Discussed sedation and/or anesthesia options, risks, benefits, and alternatives with patient/parents/legal guardian/POA. Questions invited. The patient/parents/legal guardian/POA seems to understand and agrees to proceed with anesthesia plan. Reviewed the physical assessment, medical history, allergy history and patient home medications list prior to surgery/procedure/anesthetic and documented any changes. Performed airway and anesthesia risk assessments. Anesthesia Type Anesthesia Type: MAC Anesthesia Focused Assessment* Airway Assessment Mouth opens: >3 cm Mallampati Score: II Labs Anesthesia Preop lab: CBC WBC 5.6 K/mm3 (4.4-11.0) 03/09/25 15:40 03/09/25 RBC 3.07 M/mm3 (4.6-6.2) L 03/09/25 15:40 03/09/25 Hgb 10.7 g/dL (13.0-16.5) L 03/09/25 15:40 03/09/25 Hct 32.3 % (40-54) L 03/09/25 15:40 03/09/25 Plt Count 212 K/mm3 (150-450) 03/09/25 15:40 03/09/25 CHEMISTRY Potassium 3.7 mmol/L (3.3-5.1) 03/09/25 15:40 03/09/25 Sodium 139 mmol/L (133-145) 03/09/25 15:40 03/09/25 Magnesium 2.0 mg/dL (1.6-2.6) 03/01/23 05:41 03/01/23 Phosphorus 5.0 mg/dL (2.5-4.9) H 01/07/24 07:17 01/07/24 BUN 14 mg/dL (4-19) 03/09/25 15:40 03/09/25 Creatinine 4.04 mg/dL (0.70-1.20) H 03/09/25 15:40 03/09/25 Glucose 190 mg/dL (70-99) H 03/09/25 15:40 03/09/25 POC Glucose 111 mg/dL (74-106) H 11/30/24 08:46 11/30/24 TSH 2.33 uIU/mL (0.358-3.74) 01/23/24 09:38 01/23/24 COAG PT 16.9 SECONDS (11.7-14.9) H 11/29/22 15:52 11/29/22 Pre-Assessment Diagnosis/Proposed Procedure Planned Operative Procedure(s): (L) Left Upper Extremity Fistula Revision with Branch Ligation Anesthesia History Anesthesia 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 When Was Last Pacemaker Check QUESTION #4 FULL TEXT: You/Your Family Experience fever (hyperthermia) with Anesthesia Last Oral Intake Last Oral intake: Last Oral Intake NPO since Meds taken in AM with sips of water? Meds patient instructed to take am of surgery PONV PONV - shipping/receiving clerk: PONV - shipping/receiving clerk Female No 03/26/25 10:50 HX of Motion Sickness No 03/26/25 10:50 HX of N/V After Surgery No 03/26/25 10:50 Non-Smoker Yes 03/26/25 10:50 Duration of Surgery greater Yes 03/26/25 10:50 than 60 minutes Number of Risk Factors 2 03/26/25 10:50 PONV Score Moderate Risk 03/26/25 10:50 Height & Weight Height & Weight: Anesthesia: Height & Weight Height 5 ft 9 in 03/18/25 09:29 Respiratory Assessment Respiratory Assessment - shipping/receiving clerk: Respiratory Tract Infection Hx - shipping/receiving clerk Hx Respiratory Tract Infection No 03/26/25 10:50 STOP Sleep Apnea STOP Sleep Apnea - shipping/receiving clerk: STOP Sleep Apnea - shipping/receiving clerk Hx Hypertension Yes: CONTROLLED WITH MED 03/26/25 10:50 Hx Sleep Apnea No 03/26/25 10:50 CPAP Yes 11/30/24 11:30 BIPAP No 02/28/23 16:24 Do you snore loudly (louder No 03/26/25 10:50 than talking or can be heard Do you often feel tired/ No 03/26/25 10:50 fatigued/ sleepy during daytime? Has anyone observed you stop No 03/26/25 10:50 breathing during sleep? STOP Results Negative 03/26/25 10:50 QUESTION #5 FULL TEXT : Do you snore loudly (louder than talking or can be heard through closed doors)? 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 Specify any problems Hx of Preganancy in last 3 N/A 03/26/25 10:50 Months Nurse Filling Out Transfusion MGRIFFITH 03/26/25 10:50 & Questions: Date: 03/26/25 03/26/25 10:50 Time: 10:53 03/26/25 10:50 Patient unable to answer at this time (ie. confused, unrespo /Reproduction History /Reproductive History - shipping/receiving clerk: /Reproductive Hx- shipping/receiving clerk Hx Now Gestational Age (in weeks): EDC: Hx Hx Para Hx Section SAB No 11/02/24 14:03 Active Medications Active Medications: Current Medications Generic Name Dose Route Start Last Admin Trade Name Freq PRN Reason Stop Dose Admin Cefazolin Sodium 2 gm/ Sodium 110 mls @ 200 mls/hr 04/05/25 15:00 Chloride IV 04/05/25 15:32 INTRAOP ONE PFSH Medical History Easy bruising Excessive bleeding Gastric reflux Non-smoker A-V fistula History of Clostridium difficile infection Wears dentures Depression Anxiety Insulin dependent diabetes mellitus Walker as ambulation aid Ambulates with cane Arthritis History of renal dialysis High cholesterol Restless legs Back pain Dietary restriction Shortness of breath on exertion Leg cramps History of pain when walking History of edema History of Holter monitoring History of stress test History of echocardiogram Cardiology follow-up encounter Atrial tachycardia History of CVA (cerebrovascular accident) Left-sided weakness Diabetes mellitus, type 2 Persistent atrial fibrillation BPH (benign prostatic hyperplasia) Depression Normochromic normocytic anemia Iron deficiency History of iron deficiency Cerebral artery occlusion with cerebral infarction Acute right MCA stroke Longstanding persistent atrial fibrillation Chronic combined systolic and diastolic CHF (congestive heart failure) 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 (LBBB) Acute on chronic combined systolic (congestive) and diastolic (congestive) heart failure (02/02/20) History of non-ST elevation myocardial infarction (NSTEMI) (02/02/20) Non-ischemic cardiomyopathy NSVT (nonsustained ventricular tachycardia) Obesity CVA (cerebral vascular accident) (12/2017) Secondary pulmonary arterial hypertension GERD (gastroesophageal reflux disease) Hyperlipidemia Essential (primary) hypertension CKD (chronic kidney disease), stage III Paroxysmal atrial fibrillation Anemia Chronic low back pain Osteoarthritis Home Medications ?Medication ?Instructions ?Recorded ?Last Taken ?Type multivitamin (Daily Multi-Vitamin 1 tab PO DAILY Supplement 02/12/22 12/07/22 History tablet) tamsulosin 0.4 mg capsule 0.4 mg PO BID Urine retention 02/12/22 11/30/24 History ascorbic acid (vitamin C) 500 mg 1,000 mg PO LUNCH Supplement 02/28/23 Unknown History tablet acetaminophen 500 mg tablet 1,000 mg (2 x 500 mg) PO Q8H PRN 03/15/23 Unknown Rx PRN Pain 1-10 #1 TAB ferrous sulfate 325 mg (65 mg 325 mg PO DAILY supplement #30 tabs 03/15/23 12/07/22 Rx iron) tablet insulin lispro 100 unit/mL 3 unit subcut TIDAC SLIDINING 03/15/23 Unknown Rx subcutaneous pen (Humalog KwikPen SCALE #1 mL (U-100) Insulin) buspirone 15 mg tablet 15 mg PO TID Mood 11/22/23 11/30/24 History docusate sodium 100 mg capsule 100 mg PO BID PRN constipation 11/22/23 Unknown History doxycycline hyclate 100 mg capsule 100 mg PO BID 11/22/23 Unknown History insulin glargine-yfgn 100 unit/mL 16 unit subcut QHS Blood sugar 11/22/23 Unknown History (3 mL) subcutaneous pen olanzapine 5 mg tablet 5 mg PO QHS 11/22/23 Unknown History omeprazole 40 mg capsule,delayed 40 mg PO QDAY 11/22/23 11/30/24 History release ondansetron 4 mg disintegrating 2 mg PO TID Nausea 11/22/23 Unknown History tablet sertraline 100 mg tablet 100 mg PO QDAY 11/22/23 11/30/24 History zonisamide 50 mg capsule 50 mg PO BID 11/22/23 11/30/24 History aspirin 81 mg tablet,delayed 81 mg PO QDAY 12/08/24 Unknown History release (Adult Low Dose Aspirin) rosuvastatin 20 mg tablet 20 mg PO QDAY 12/08/24 Unknown History sennosides 8.6 mg-docusate sodium 2 tab-cap PO BID 12/08/24 Unknown History 50 mg tablet (Senna with Docusate Sodium) apixaban 2.5 mg tablet 2.5 mg PO BID #60 tabs 02/18/25 Unknown Rx cholecalciferol (vitamin D3) 25 50 mcg PO DAILY 02/18/25 Unknown History mcg (1,000 unit) tablet torsemide 100 mg tablet 100 mg PO QDAY 02/18/25 Unknown History cephalexin 500 mg capsule 500 mg PO Q12H 7 days #14 caps 03/09/25 Unknown Rx amiodarone 200 mg tablet 100 mg PO BID BP 03/26/25 Unknown History fenofibrate 54 mg tablet 108 mg PO DAILY 03/26/25 Unknown History finasteride 5 mg tablet 5 mg PO QHS 03/26/25 Unknown History Allergy/AdvReac Type Severity Reaction Status Date / Time rofecoxib Allergy Severe Swelling Verified 03/31/25 13:53 Family History Mother Heart disease Sister Heart disease Myocardial infarction CVA (cerebral vascular accident) Diabetes Brother CVA (cerebral vascular accident) Other Persistent atrial fibrillation Surgical History History of insertion of nerve stimulator History of surgery Hx of colonoscopy Hx of lumbar discectomy Hx of total knee arthroplasty History of knee replacement, total Social History Smoking Status: Never smoker alcohol intake: current alcohol intake frequency: holidays/special occasions only Alcohol type: beer substance use type: does not use caffeine: Yes Type: coffee Number of servings: 2 Review of Systems (Anesthesia) ROS Narrative System reviewed and no additional complaints, except as documented.
[2025-04-05] MEDS: 0.9% Normal Saline (500mL Bag) 500 ML 15 ML IV (13:31)
--- NOTE | 2025-04-05 14:55 | HP.PCM_ITS ---
History and Physical Allergies rofecoxib Allergy (Severe, Verified 03/31/25 13:53) Swelling Medications ?Medication ?Instructions ?Recorded ?Confirmed ?Type multivitamin (Daily Multi-Vitamin 1 tab PO DAILY Supplement 02/12/2203/31 History tablet) tamsulosin 0.4 mg capsule 0.4 mg PO BID Urine retention 02/12/22 0 03/31/25 History ascorbic acid (vitamin C) 500 mg 1,000 mg PO LUNCH Supplement 02/28/23 History tablet acetaminophen 500 mg tablet 1,000 mg (2 x 500 mg) PO Q8H PRN 3 03/31/25 Rx PRN Pain 1-10 #1 TAB ferrous sulfate 325 mg (65 mg 325 mg PO DAILY supplement #30 tabs 03/3103/31/25 Rx iron) tablet insulin lispro 100 unit/mL 3 unit subcut TIDAC SLIDINING 03/15/23 0 03/31/25 Rx subcutaneous pen (Humalog KwikPen SCALE #1 mL (U-100) Insulin) buspirone 15 mg tablet 15 mg PO TID Mood 11/22/23 03/31/25 Hist ory docusate sodium 100 mg capsule 100 mg PO BID PRN constipation 11/22/23 03/31/25 History doxycycline hyclate 100 mg capsule 100 mg PO BID 11/22/23 03/31/25 History insulin glargine-yfgn 100 unit/mL 16 unit subcut QHS Blood sugar 11/22/23 03/31/25 History (3 mL) subcutaneous pen olanzapine 5 mg tablet 5 mg PO QHS 11/22/23 03/31/25 History omeprazole 40 mg capsule,delayed 40 mg PO QDAY 11/22/23 03/31/25 History release ondansetron 4 mg disintegrating 2 mg PO TID Nausea 11/22/23 03/31/25 His tory tablet sertraline 100 mg tablet 100 mg PO QDAY 11/22/23 03/31/25 History zonisamide 50 mg capsule 50 mg PO BID 11/22/23 03/31/25 History aspirin 81 mg tablet,delayed 81 mg PO QDAY 12/08/24 03/31/25 History release (Adult Low Dose Aspirin) rosuvastatin 20 mg tablet 20 mg PO QDAY 12/08/24 03/31/25 History sennosides 8.6 mg-docusate sodium 2 tab-cap PO BID 12/08/24 03/31/25 Histo ry 50 mg tablet (Senna with Docusate Sodium) apixaban 2.5 mg tablet 2.5 mg PO BID #60 tabs 02/18/25 03/31/25 Rx cholecalciferol (vitamin D3) 25 50 mcg PO DAILY 02/18/25 03/31/25 Histor y mcg (1,000 unit) tablet torsemide 100 mg tablet 100 mg PO QDAY 02/18/25 03/31/25 History cephalexin 500 mg capsule 500 mg PO Q12H 7 days #14 caps 03/09/25 03/31/25 Rx amiodarone 200 mg tablet 100 mg PO BID BP 03/26/25 03/31/25 Histo ry fenofibrate 54 mg tablet 108 mg PO DAILY 03/26/25 03/31/25 Histor y finasteride 5 mg tablet 5 mg PO QHS 03/26/25 03/31/25 History Have you fallen in the past year?: Yes [facility] Medical History Easy bruising Excessive bleeding Gastric reflux Non-smoker A-V fistula History of Clostridium difficile infection Wears dentures Depression Anxiety Insulin dependent diabetes mellitus Walker as ambulation aid Ambulates with cane Arthritis History of renal dialysis High cholesterol Restless legs Back pain Dietary restriction Shortness of breath on exertion Leg cramps History of pain when walking History of edema History of Holter monitoring History of stress test History of echocardiogram Cardiology follow-up encounter Atrial tachycardia History of CVA (cerebrovascular accident) Left-sided weakness Diabetes mellitus, type 2 Persistent atrial fibrillation BPH (benign prostatic hyperplasia) Depression Normochromic normocytic anemia Iron deficiency History of iron deficiency Cerebral artery occlusion with cerebral infarction Acute right MCA stroke Longstanding persistent atrial fibrillation Chronic combined systolic and diastolic CHF (congestive heart failure) 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 (LBBB) Acute on chronic combined systolic (congestive) and diastolic (congestive) heart failure (02/02/20) History of non-ST elevation myocardial infarction (NSTEMI) (02/02/20) Non-ischemic cardiomyopathy NSVT (nonsustained ventricular tachycardia) Obesity CVA (cerebral vascular accident) (12/2017) Secondary pulmonary arterial hypertension GERD (gastroesophageal reflux disease) Hyperlipidemia Essential (primary) hypertension CKD (chronic kidney disease), stage III Paroxysmal atrial fibrillation Anemia Chronic low back pain Osteoarthritis Surgical History History of insertion of nerve stimulator History of surgery Hx of colonoscopy Hx of lumbar discectomy Hx of total knee arthroplasty History of knee replacement, total Family History Mother Heart diseaseSister Heart disease Myocardial infarction CVA (cerebral vascular accident) DiabetesBrother CVA (cerebral vascular accident)Other Persistent atrial fibrillation Social History Smoking Status: Never smoker alcohol intake: current alcohol intake frequency: holidays/special occasions only Alcohol type: beer substance use type: does not use caffeine: Yes Type: coffee Number of servings: 2 HPI HPI HPI: VIVI SAINI, is a 75 M who presents to the office today for follow-up s/p fistulogram 03/18/2025 performed due to LUE edema following L brachiocephalic AV fistula creation; fistulogram revealed large, patent fistula without any evidence of fistula or central venous stenosis but which did demonstrate two large branches which are felt to be the likely culprit for his edema. His LUE swelling has been stable. He reports dialysis center removed the stitch from the access site last week; he has had some mild persistent erythema here without any associated drainage, skin breakdown, excess warmth. This area has remained stable in size, no spreading erythema. ROS General General: Yes weight change and weakness; No appetite, fatigue, colon cancer or breast cancer HEENT HEENT: No difficulty swallowing, eye injury, eye surgery, swollen glands or hoarseness Endo Endocrine: Yes diabetes mellitus; No thyroid disease, thyroid cancer, Hair loss, heat intolerance or cold intolerance Skin Skin: No rash or changing moles Musc Musculoskeletal: Yes back problems, arthritis and joint pain; No rheumatoid arthritis or gout Cardio Cardiovascular: Yes heart disease, atrial fibrillation, high blood pressure and shortness of breath with exertion; No murmur, pacemaker, heart attack, heart stent, palpitations or chest pain Psych Psychiatric: No depression, anxiety or hearing voices Resp Respiratory: Yes shortness of breath, Yes sleep apnea, No cough, No COPD, No asthma, No emphysema and No wheezing Gastro Gastrointestinal: No abdominal pain, No nausea or vomiting, No diarrhea, No constipation, No blood in stool, Yes acid reflux, No hemorrhoids, No ulcers, No gallbladder problem and No black,tarry stools Yassine Hematologic: Yes blood thinners, No blood disorders, No bleeding, Yes anemia and No blood clots Neuro Neurologic: No system reviewed and no additional complaints, except as documented, No as per HPI, No abnormal gait, No abnormal hearing, No abnormal movements, No abnormal speech, No behavioral changes, No burning sensations, Yes confusion, No convulsions, Yes disequilibrium, No dizziness, No localized weakness, Yes frequent falls, No headache(s), Yes lack of coordination, No loss of vision, No memory loss, No numbness, No other visual disturbances, No radi cular pain, Yes restless legs, No sensory deficit, No syncope, No tingling, No tremor(s), Yes weakness and No other Exam Const General: cooperative, comfortable and no acute distress Orientation: alert, awake and oriented x3 HENMT Head: normocephalic and atraumatic Ears: hearing grossly normal bilaterally and external ears normal Nose: external nose normal Eyes General: appearance normal, both eyes and all related structures Neck Neck: normal visual inspection and trachea midline Resp Effort & Inspection: normal respiratory effort, able to speak in complete sentences, no grunting, not labored, no respiratory distress and no retractions Cardio Rate: regular rate Other: Left upper arm AV fistula with good thrill from antecubital fossa to mid-upper arm; great bruit from antecubital fossa to proximal upper arm 1+ pitting edema throught the L hand; L radial pulse palpable, motor/sensory intact Skin Other: Appreciate mild erythema in a very small area <0.5cmx0.5cm focal to the access site; suture has been removed, the site is well-healed and skin intact, no drainage, no focal swelling/fluctuance/induration/excess warmth Neuro General: moves all extremities and no focal motor deficits Cranial Nerves: CN's II-XI intact bilaterally Speech: speech normal Psych Appearance: grossly normal Mental Status: mental status grossly normal Affect: normal affect Speech and Movement: speech and movement normal Attitude: cooperative Coding Level of Care Code Off vis,est,level 2 Diagnoses 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 He is advised to call the office if the area of redness expands or he develops drainage, pain, worsened swelling, or any other concerning symptoms. Fistula still with good thrill and bruit. We discussed fistulogram results demonstrating two large branches which are felt to be contributing to his edema. Branch ligation is recommended to hopefully reduce swelling. We discussed branch ligation procedure details and patient does wish to proceed. He is scheduled next week. He will return to the office after next procedure, call sooner as needed.
[2025-04-05] MEDS: Lidocaine 1% (20 ml mdv) 20 ML Vial (15:58)
--- NOTE | 2025-04-05 16:08 | EX.PCM.DISCH ---
Discharge Instructions Diet Discharge Diet: No restrictions Activity Lifting Restrictions: do not lift > 20 lbs with left arm for 2 weeks Additional Activity Instructions:: do not submerge incision for 2 weeks Dressing / Incision Call your doctor if your incision/area has: Sudden Increased Bleeding, Increased Pain/ Swelling, Increased Redness and Foul Smelling Discharge Remove Dressing in: 2 days Cleanse incision/area with: Soap & Water Follow Up Care Test Results: Test results from this visit will be discussed in further detail at your follow-up appointment, if applicable. Discharge Plan Admission Attending Provider: Quan Garvey Primary Care Provider: Lester Jarvis Instructions Print Language: Bulgarian Discharge Orders/Prescriptions Prescriptions: New oxycodone 5 mg tablet 5 mg PO Q8H PRN (Reason: pain) 1 Days Qty: 3 0RF Continued multivitamin [Daily Multi-Vitamin] Tablet 1 tab PO DAILY tamsulosin 0.4 mg capsule 0.4 mg PO BID docusate sodium 100 mg capsule 100 mg PO BID PRN (Reason: constipation) olanzapine 5 mg tablet 5 mg PO QHS ondansetron 4 mg tablet,disintegrating 2 mg PO TID omeprazole 40 mg capsule,delayed release(DR/EC) 40 mg PO QDAY zonisamide 50 mg capsule 50 mg PO BID sertraline 100 mg tablet 100 mg PO QDAY rosuvastatin 20 mg tablet 20 mg PO QDAY sennosides-docusate sodium [Senna with Docusate Sodium] 8.6-50 mg tablet 2 tab-cap PO BID aspirin [Adult Low Dose Aspirin] 81 mg tablet,delayed release (DR/EC) 81 mg PO QDAY cholecalciferol (vitamin D3) 25 mcg (1,000 unit) tablet 50 mcg PO DAILY torsemide 100 mg tablet 100 mg PO QDAY buspirone 15 mg tablet 15 mg PO TID ascorbic acid (vitamin C) 500 mg tablet 1,000 mg PO LUNCH insulin lispro [Humalog KwikPen Insulin] 100 unit/mL Insulin Pen 3 unit subcut TIDAC Qty: 1 0RF Protocol: 4. Sliding Scale Insulin High-Med Dosing Condition: 150-199 mg/dl = 2 units Condition: 200-259 mg/dl = 4 units Condition: 260-324 mg/dl = 6 units Condition: 325-374 mg/dl = 8 units Condition: 375-409 mg/dl = 10 units Condition: 410-449 mg/dl = 11 units Condition: Greater than 449 call physician Protocol Text: - Use for Total Daily Dose of Insulin 56-80 units - Patient who are insulin resistant or septic HIGH MEDIUM DOSING ALGORITHM acetaminophen 500 mg tablet 1,000 mg PO Q8H PRN PRN (Reason: Pain 1-10) Qty: 1 0RF ferrous sulfate 325 mg (65 mg iron) tablet 325 mg PO DAILY Qty: 30 0RF Rx Instructions: give this at noon daily with the ferrous sulfate. insulin glargine-yfgn 100 unit/mL (3 mL) insulin pen 16 unit SUBCUT QHS fenofibrate 54 mg tablet 108 mg PO DAILY amiodarone 200 mg tablet 100 mg PO BID finasteride 5 mg Tablet 5 mg PO QHS Held apixaban 2.5 mg tablet 2.5 mg PO BID Qty: 60 11RF Hold Instructions: Resume on 04/06/25. PM dose Patient Comments: LAST DOSE TO BE 04/03 Referrals / Follow Up: Lester Jarvis MD [Primary Care Provider] - Disposition Disposition (needs filled in before D/C Order can be placed): Home, Self Care
--- NOTE | 2025-04-05 16:18 | PCM.POST.ANE ---
Anesthesia: Postop Eval I Current Vital Signs Temperature: 96.9 F Pulse Rate: 69 Blood Pressure: 116/51 Respiratory Rate: 20 Pulse Ox: 94 Assessment Airway patent: Yes Spontaneous unlabored respirations: Yes nausea: No Vomiting: No Anesthesia Complication: No Fluid Hydration Crystalloid volume administer (ml): 200 Total IV fluid infused: 200 Progress Note Anesthesia document: Postop Eval 1 completed: Yes
--- NOTE | 2025-04-05 16:33 | POSTOPAN2_ITS ---
Anesthesia Postop Eval I Sum Postop Eval Completion status Anesthesia document: Postop Eval 1 completed: Yes Anesthesia Postop Eval I Summary Anesthesia Postop Eval I Summary: Anesthesia Postop Eval I: Assessment Summary Airway patent Yes 04/05/25 16:18 PARI MUTUEL TICKET CASHIER.[email or web address] Spontaneous unlabored Yes 04/05/25 16:18 PARI MUTUEL TICKET CASHIER.CSIR respirations Mental status nausea No 04/05/25 16:18 PARI MUTUEL TICKET CASHIER.CSIR Vomiting No 04/05/25 16:18 PARI MUTUEL TICKET CASHIER.CSIR Anesthesia Postop Eval I: Fluid Summary Crystalloid volume administer 200 04/05/25 16:18 PARI MUTUEL TICKET CASHIER.CSIR (ml) Colloids volume administered ( ml) Blood Product volume administered (ml) Total IV fluid infused 200 04/05/25 16:18 PARI MUTUEL TICKET CASHIER.CSIR Anesthesia Postop Eval I: Summary Notes Anesthesia Complication No 04/05/25 16:18 PARI MUTUEL TICKET CASHIER.CSIR Anesthesia Complication Comment: Post-operative progress note Anesthesia: Postop Eval II Evaluation Mental status: Awake Pain Level: 0 nausea: No Vomiting: No
--- NOTE | 2025-04-05 16:33 | PCM.POSTANE2 ---
Anesthesia Postop Eval I Sum Postop Eval Completion status Anesthesia document: Postop Eval 1 completed: Yes Anesthesia Postop Eval I Summary Anesthesia Postop Eval I Summary: Anesthesia Postop Eval I: Assessment Summary Airway patent Yes 04/05/25 16:18 CIVIL CAD TECH.CSIR Spontaneous unlabored Yes 04/05/25 16:18 CIVIL CAD TECH.CSIR respirations Mental status nausea No 04/05/25 16:18 CIVIL CAD TECH.CSIR Vomiting No 04/05/25 16:18 CIVIL CAD TECH.CSIR Anesthesia Postop Eval I: Fluid Summary Crystalloid volume administer 200 04/05/25 16:18 CIVIL CAD TECH.CSIR (ml) Colloids volume administered ( ml) Blood Product volume administered (ml) Total IV fluid infused 200 04/05/25 16:18 CIVIL CAD TECH.CSIR Anesthesia Postop Eval I: Summary Notes Anesthesia Complication No 04/05/25 16:18 CIVIL CAD TECH.CSIR Anesthesia Complication Comment: Post-operative progress note Anesthesia: Postop Eval II Evaluation Mental status: Awake Pain Level: 0 nausea: No Vomiting: No
--- NOTE | 2025-04-05 17:04 | OP.PCM_ITS ---
Operative Report (Standard) Operative Information Date of Procedure: 04/05/25 Pre-Operative Diagnosis: Left upper arm AV fistula with multiple branches refluxing to the forearm hindering maturation and causing significant forearm and hand edema Post-Operative Diagnosis: Same Surgery/Procedure Performed: Ligation AV fistula branches x 3 refining still operator: Yes Client Services Coordinator: Trinity Reyes Tasks completed by certified surgical tech/first assistant: Opening, Closing, Opening & closing, Hemostasis: Tie and Retracting Type of Anesthesia: Local MAC, Local and MAC RN Documented Start/Stop Times: Operation Date: 04/05/25 15:00 Case Time Into Pre-Op 04/05/25 12:54 Anesthesia Start 04/05/25 15:01 Into Room 04/05/25 15:01 Procedure Start 04/05/25 15:23 Procedure End 04/05/25 16:11 Anesthesia End 04/05/25 16:16 Out of Room 04/05/25 16:16 Into Recovery 04/05/25 16:20 Into Phase II Recovery 04/05/25 16:48 Out of Recovery 04/05/25 16:48 Procedure Start Time: 15:23 Procedure Stop Time: 16:00 Select all DRAINS/GRAFTS/IMPLANTS that apply: None Estimated Blood Loss: 3 Specimen collected: No Description of surgery: HPI: Patient is a 75-year-old male with a previously created left upper arm AV fistula of the cephalic vein. This has matured relatively well however has diminished thrill in the mid to distal upper arm and he has developed significant forearm and hand edema. Prior fistulogram revealed no outflow stenosis and satisfactory caliber throughout however there were multiple branches that both fill the deep system with reflux toward the hand as well as direct branch contrast transit into the forearm and hand. He is taken now to ligate branches to aid in maturation and alleviate his forearm and hand edema. Description of procedure: Upon obtaining informed consent and verification correct patient procedure and site the patient was taken to the operating where he was positioned prepped and draped in usual sterile fashion. Timeouts performed and sedation administered by anesthesia. Ultrasound was used to evaluate the fistula and multiple branches marked. Skin overlying these branches was anesthetized with 1% lidocaine and longitudinal incision made over each branch location. Bovie was used to dissect through subcutaneous tissue and combination of hand-held and self-retaining retractors utilized followed by sharp and blunt dissection until the fistula branches were identified. A right angle was used to further mobilize the branches and these each were ligated individually with silk ties. The incisions were then inspected for hemostasis and closed with 3-0 Vicryl, 4-0 Monocryl and Dermabond for the skin. The patient was then taken to the recovery room with anticipated discharge to home. Surgical Findings: See above Complications Complications: No
== END 2025-04-05 17:20 | disposition home or self-care (01) ==
LOC: SDC 12:42 → AC 12:44
PROVIDERS: PCP Family Medicine; Referring Provider Surgery Trauma Surgery; Visit Provider Surgery Trauma Surgery
PROC: (CPT 37607; principal; 2025-04-05 14:45)
DX: Z45.2 Encounter for adjustment and management of vascular access device (principal); N18.6 End stage renal disease; I12.0 Hypertensive chronic kidney disease with stage 5 chronic kidney disease or end stage renal disease; E11.22 Type 2 diabetes mellitus with diabetic chronic kidney disease; Z79.4 Long term (current) use of insulin; R60.0 Localized edema; Z99.2 Dependence on renal dialysis; Z79.82 Long term (current) use of aspirin; Z79.899 Other long term (current) drug therapy
CPT/HCPCS: 37607; 01844; 82962; 86850; 86900; 86901; A4648; J2405

== ENCOUNTER 2025-04-26 09:07 | Observation (INO) | payer MEDICARE, MEDICAID, SELFPAY ==
[2025-04-26] VITALS (25 sets, daily range): BP systolic 79–116; BP diastolic 48–67; PULSE 71–98; RESP 13–26; TEMP 36.6–36.8; O2SAT 95–100; BMI 38.2
--- NOTE | 2025-04-26 09:28 | RAD_ITS ---
PROCEDURE: HIP, UNI W/ PELVIS 2-3 VIEWS 04/26/2025 REASON FOR EXAM: PAIN TECHNIQUE: HIP, UNI W/ PELVIS 2-3 VIEWS Laterality: Left COMPARISON: None FINDINGS: Bones: Degenerative changes lumbar spine. No fracture seen. Mildly decreased bone mineralization commensurate with age. Joints: Medial joint space narrowing bilaterally. Soft tissues: Atherosclerosis of the arterial structures and some calcification of the penile soft tissues. Other: Neurostimulator device overlying the right lower abdomen. RAD/HIP, UNI W/ Pelvis 2-3 Views IMPRESSION: No fracture seen Reading Location: [id number]
--- NOTE | 2025-04-26 09:28 | RAD_ITS ---
PROCEDURE: CHEST PA AND LATERAL 04/26/2025 REASON FOR EXAM: SOB, SUSPECT CHF EXACERBATION VS PNEUMONIA TECHNIQUE: CHEST PA AND LATERAL COMPARISON: November 18, 2023 FINDINGS: Hardware: Right-sided internal jugular dialysis catheter is in place. The tip is seen over the junction of the superior vena cava and right atrium. Thoracic neurostimulator is seen over the mid to lower thoracic spine. EKG leads are seen. Heart: Mildly enlarged. Mediastinum: No mass. Lungs: Central congestion, mild edema. Bones: Osteoarthritis glenohumeral joint, ecam-kfovolg-faft-right. Mild degenerative changes of the spine. RAD/Chest PA and Lateral IMPRESSION: Cardiac enlargement. Interstitial edema. Reading Location: [id number]
--- NOTE | 2025-04-26 09:28 | EKG12_ITS ---
Test Reason : FALL Blood Pressure : */* mmHG Vent. Rate : 73 BPM Atrial Rate : 73 BPM P-R Int : 246 ms QRS Dur : 78 ms QT Int : 420 ms P-R-T Axes : -27 -45 -19 degrees QTcB Int : 462 ms Sinus rhythm with 1st degree A-V block with Premature ventricular complexes or Fusion complexes Left axis deviation Low voltage QRS Inferior infarct , age undetermined Possible Anterolateral infarct , age undetermined Abnormal ECG Confirmed by STARLA BESS, SUNDEEP ([id number]), medical editor VON TOWNSEND ([id number]) on 04/27/2025 8:46:16 AM Referred By: Confirmed By: SUNDEEP CHA MD
--- NOTE | 2025-04-26 09:28 | CT_ITS ---
PROCEDURE: SPINE LUMBAR WITHOUT CONTRAST 04/26/2025 REASON FOR EXAM: FALL, LOW BACK PAIN TECHNIQUE: SPINE LUMBAR WITHOUT CONTRAST Coronal and Sagittal reconstruction series were provided. One or more dose reduction techniques were used (e.g., Automated exposure control, adjustment of the mA and/or kV according to patient size, use of iterative reconstruction technique COMPARISON: None RADIATION DOSE SUMMARY: CTDlvol: 48 mGy DLP: 1859 mGycm FINDINGS: Vertebrae: Anterior wedge compression of T12 with a proximally 25% height loss. Slightly less height loss at T11 and L1. Disc space narrowing, marginal endplate spurring, vacuum disc phenomenon throughout the lumbar spine. Facet hypertrophy is present as well. Alignment: Straightening of the lordosis. Mild curvature lumbar spine to the right centered at L2. No spondylolisthesis. Detail of the central canal limited without intrathecal contrast. T12-L1: Moderate loss of disc height. Diffuse disc osteophyte protrusion. L1-2: Moderate to severe loss of disc height. Diffuse disc osteophyte protrusion. Likely central stenosis. Mild bilateral exit foraminal narrowing. L2-3: Ldbbfimz-wu-wumrly loss of disc height. Diffuse disc osteophyte protrusion. Likely central stenosis. Mild bilateral facet hypertrophy. Left greater than right exit foraminal narrowing. L3-4: Moderate loss of disc height. Diffuse disc osteophyte protrusion. Wzhoj-lyebasm-ihac-left moderate facet hypertrophy. Central stenosis is likely present. Mcfsj-jbvhnkh-dgmm-left exit foraminal narrowing. L4-5: Lrvf-fi-qxmxtugp loss of disc height. Diffuse disc osteophyte protrusion. Kxoyz-kibizwh-iwjm-left facet hypertrophy. Likely central stenosis. Cukrm-qefxhnl-jrja-left exit foraminal narrowing. L5-S1: Mild loss of disc height. Mild, diffuse disc osteophyte protrusion. Czpg-ihinlqb-hlks-right bilateral exit foraminal narrowing. Sacrum: No fracture seen. Mild degenerative changes of the SI joints. CT/Spine Lumbar without Contrast IMPRESSION: 1. Anterior wedge compression of T11, T12 and L1 greatest at T12 with 25% heig ht loss. 2. Straightening of the lumbar lordosis. Consider spasm 3. Qdnbhexo-hi-wfbspy multilevel degenerative disc disease with central stenos is and exit foraminal narrowing. Reading Location: [id number]
[2025-04-26 09:42] LABS: Hematocrit 27.7 % (40-54); Hemoglobin 9.1 g/dL (13.0-16.5); Immature Granulocytes Count 0.090 X10^3/uL (0.0-0.0); Mean Corp Hgb Conc 32.9 g/dL (32-36); Mean Corpuscular Volume 104.1 fL (80-94); Mean Platelet Vol. 10.7 fl (6.2-12.0); NRBC Flagged by Analyzer 0.2 % (0-5); POSITIVE DIFFERENTIAL YES; Platelet Count 227 K/mm3 (150-450); RBC Distribution Width CV 15.0 % (11.6-14.6); RBC Distribution Width SD 56.0 fl (35.1-43.9); Red Blood Count 2.66 M/mm3 (4.6-6.2); White Blood Count 10.9 K/mm3 (4.4-11.0)
[2025-04-26 09:44] LABS: Differential Indicated SCAN CRITERIA MET
[2025-04-26 10:10] LABS: Polychromasia 1+
[2025-04-26 10:28] LABS: Anion Gap 20 (5-15); BUN 48 mg/dL (4-19); BUN/Creat Ratio 8.2 RATIO (10-20); Calcium,Total 9.4 mg/dL (7.6-11.0); Carbon Dioxide 23.7 mmol/L (21.0-32.0); Chloride 89 mmol/L (98-108); Estimated Creatinine Clearance 13.69 ml/min (50-250); Glucose 122 mg/dL (70-99); Potassium 4.0 mmol/L (3.3-5.1)
[2025-04-26 10:39] LABS: Pro- Brain NATRIURETIC PEPTIDE 30318 pg/mL (<=1800); Troponin T High Sensitivity 43 ng/L (<=22)
[2025-04-26 12:03] LABS: Troponin T High Sens 2 HR 37 ng/L (<=22)
--- NOTE | 2025-04-26 15:08 | ED.VIS.FALL ---
HPI HPI - Fall History of Present Illness Chief Complaint: Fall Narrative Narrative: Patient is a 75-year-old male presenting to the emergency department for 2 falls today. Patient has extensive past medical history as below including CKD on dialysis Saturday, and Saturday. He did just go on Saturday. States that today he felt like his legs were very weak and could not hold him causing him to fall on the ground on his buttocks. States that his grandson helped him up and shortly after the same thing happened again. Both of the episodes were witnessed by . and patient deny any head trauma. Patient endorsing some low back pain as well as left hip pain. He has had some intermittent nausea with vomiting over the weekend. He is also endorsing some lower extremity swelling that is worse than baseline and shortness of breath with any activity. denies any abdominal pain. Denies fever, chills, chest pain. [facility] Medical History Easy bruising Excessive bleeding Gastric reflux Non-smoker A-V fistula History of Clostridium difficile infection Wears dentures Depression Anxiety Insulin dependent diabetes mellitus Walker as ambulation aid Ambulates with cane Arthritis History of renal dialysis High cholesterol Restless legs Back pain Dietary restriction Shortness of breath on exertion Leg cramps History of pain when walking History of edema History of Holter monitoring History of stress test History of echocardiogram Cardiology follow-up encounter Atrial tachycardia History of CVA (cerebrovascular accident) Left-sided weakness Diabetes mellitus, type 2 Persistent atrial fibrillation BPH (benign prostatic hyperplasia) Depression Normochromic normocytic anemia Iron deficiency History of iron deficiency Cerebral artery occlusion with cerebral infarction Acute right MCA stroke Longstanding persistent atrial fibrillation Chronic combined systolic and diastolic CHF (congestive heart failure) 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 (LBBB) Acute on chronic combined systolic (congestive) and diastolic (congestive) heart failure (02/02/20) History of non-ST elevation myocardial infarction (NSTEMI) (02/02/20) Non-ischemic cardiomyopathy NSVT (nonsustained ventricular tachycardia) Obesity CVA (cerebral vascular accident) (12/2017) Secondary pulmonary arterial hypertension GERD (gastroesophageal reflux disease) Hyperlipidemia Essential (primary) hypertension CKD (chronic kidney disease), stage III Paroxysmal atrial fibrillation Anemia Chronic low back pain Osteoarthritis Home Medications ?Medication ?Instructions ?Recorded ?Last Taken ?Type multivitamin (Daily Multi-Vitamin 1 tab PO DAILY Supplement 02/12/22 04/25/25 History tablet) tamsulosin 0.4 mg capsule 0.4 mg PO BID Urine retention 02/12/22 04/25/25 History ascorbic acid (vitamin C) 500 mg 1,000 mg PO LUNCH Supplement 02/28/23 04/25/25 History tablet acetaminophen 500 mg tablet 1,000 mg (2 x 500 mg) PO Q8H PRN 03/15/23 04/04/25 Rx PRN Pain 1-10 #1 TAB ferrous sulfate 325 mg (65 mg 325 mg PO DAILY supplement #30 tabs 03/15/23 04/25/25 Rx iron) tablet buspirone 15 mg tablet 15 mg PO TID Mood 11/22/23 04/25/25 History docusate sodium 100 mg capsule 100 mg PO BID PRN constipation 11/22/23 Unknown History olanzapine 5 mg tablet 5 mg PO QHS 11/22/23 04/25/25 History omeprazole 40 mg capsule,delayed 40 mg PO QDAY 11/22/23 04/25/25 History release sertraline 100 mg tablet 100 mg PO QDAY 11/22/23 04/25/25 History zonisamide 50 mg capsule 50 mg PO BID 11/22/23 04/25/25 History aspirin 81 mg tablet,delayed 81 mg PO QDAY 12/08/24 04/25/25 History release (Adult Low Dose Aspirin) rosuvastatin 20 mg tablet 20 mg PO QDAY 12/08/24 04/25/25 History cholecalciferol (vitamin D3) 25 50 mcg PO DAILY 02/18/25 04/25/25 History mcg (1,000 unit) tablet torsemide 100 mg tablet 100 mg PO QDAY 02/18/25 04/25/25 History amiodarone 200 mg tablet 100 mg PO BID BP 03/26/25 04/25/25 History fenofibrate 54 mg tablet 108 mg PO DAILY 03/26/25 04/25/25 History finasteride 5 mg tablet 5 mg PO QHS 03/26/25 04/25/25 History apixaban 5 mg tablet (Eliquis) 5 mg PO BID 04/26/25 04/25/25 History dextrose 40 % oral gel 10 g PO Q15M PRN hypoglycemia 04/26/25 Unknown History doxycycline hyclate 100 mg capsule 100 mg PO BID 04/26/25 04/25/25 History furosemide 40 mg tablet 40 mg PO DAILY 04/26/25 04/25/25 History insulin glargine 100 unit/mL (3 16 unit subcut QHS 04/26/25 04/25/25 History mL) subcutaneous pen (Lantus Solostar U-100 Insulin) insulin lispro 100 unit/mL 6 unit subcut TIDAC SLIDINING SCALE 04/26/25 04/25/25 History subcutaneous pen (Humalog KwikPen (U-100) Insulin) magnesium 250 mg tablet 250 mg PO DAILY SUPPLEMENT 04/26/25 04/25/25 History ondansetron HCl 4 mg tablet 2 mg PO Q8H PRN nausea and vomiting 04/26/25 04/25/25 History polyethylene glycol 3350 17 17 g PO DAILY PRN constipation 04/26/25 Unknown History gram/dose oral powder (ClearLax) Allergy/AdvReac Type Severity Reaction Status Date / Time rofecoxib Allergy Severe Swelling Verified 04/21/25 14:50 Family History Mother Heart disease Sister Heart disease Myocardial infarction CVA (cerebral vascular accident) Diabetes Brother CVA (cerebral vascular accident) Other Persistent atrial fibrillation Surgical History History of insertion of nerve stimulator History of surgery Hx of colonoscopy Hx of lumbar discectomy Hx of total knee arthroplasty History of knee replacement, total Social History Smoking Status: Never smoker alcohol intake: current alcohol intake frequency: holidays/special occasions only Alcohol type: beer substance use type: does not use caffeine: Yes Type: coffee Number of servings: 2 ROS ROS ED ROS Narrative See HPI EXAM Physical Exam Narrative Exam Narrative: Vital signs: Reviewed General: Alert and orientedx3. No acute distress HEENT: Head is normocephalic and atraumatic, sinuses nontender, pupils equal round and reactive. Nares are patent. Oropharynx and throat exams normal. Neck: Supple without lymphadenopathy nontender Cardiovascular: Regular rate and rhythm, no murmurs. No rubs or gallops. Normal S1 and S2 Chest wall: dialysis catheter in right upper chest, no surrounding erythema, warmth or drainage around it Respiratory: Rales in bilateral lower lung smith, no wheezes. Abdominal: Soft and nontender. Normal bowel sounds. Peritoneal dialysis catheter in the right lower quadrant. Two midline laparoscopic incisions. There is scattered healing ecchymosis. No guarding or rebound. Nonsurgical abdomen Extremities: No midline cervical or thoracic midline tenderness to palpation. There is lower lumbar midline spinal tenderness to palpation. No step-offs or deformities. Bilateral lower extremity 2+ pitting edema. No tenderness. No bruising. Normal range of motion. Normal sensation. Skin: No rash or redness. Neurological: Cranial nerves II through XII are grossly intact. Normal strength and sensation. Normal cerebellar function The rest of the physical exam is unremarkable Const Vital Signs: 04/26/25 09:08 04/26/25 09:08 04/26/25 09:17 Temperature 98.1 F Temperature Source Oral Pulse Rate 97 Respiratory Rate 22 H Respiratory Effort Normal Non-Labored Respiratory Depth Normal Respiratory Pattern Normal Normal Blood Pressure 95/61 Blood Pressure Mean 72 Pulse Ox 97 Oxygen Delivery Method Room Air Room Air 04/26/25 09:28 04/26/25 09:44 04/26/25 09:45 Temperature Temperature Source Pulse Rate 93 87 Respiratory Rate 17 17 Respiratory Effort Respiratory Depth Respiratory Pattern Blood Pressure 96/62 Blood Pressure Mean 72 Pulse Ox 97 96 Oxygen Delivery Method Room Air 04/26/25 09:45 04/26/25 10:00 04/26/25 10:00 Temperature Temperature Source Pulse Rate Respiratory Rate Respiratory Effort Respiratory Depth Respiratory Pattern Blood Pressure 96/62 89/48 L 89/48 L Blood Pressure Mean 72 62 62 Pulse Ox Oxygen Delivery Method 04/26/25 10:09 04/26/25 10:15 04/26/25 10:30 Temperature Temperature Source Pulse Rate 73 72 98 Respiratory Rate 15 18 15 Respiratory Effort Respiratory Depth Respiratory Pattern Blood Pressure 79/48 L 101/61 Blood Pressure Mean 58 72 Pulse Ox 97 98 96 Oxygen Delivery Method 04/26/25 10:45 04/26/25 11:11 04/26/25 11:22 Temperature Temperature Source Pulse Rate 88 87 84 Respiratory Rate 18 17 Respiratory Effort Respiratory Depth Respiratory Pattern Blood Pressure 101/56 L 98/61 Blood Pressure Mean 70 71 Pulse Ox 100 99 Oxygen Delivery Method 04/26/25 11:30 04/26/25 11:32 04/26/25 11:45 Temperature Temperature Source Pulse Rate 84 72 Respiratory Rate 21 H 20 H Respiratory Effort Respiratory Depth Respiratory Pattern Blood Pressure 97/51 L 96/55 L 100/59 L Blood Pressure Mean 66 69 72 Pulse Ox Oxygen Delivery Method 04/26/25 12:00 04/26/25 12:15 04/26/25 12:30 Temperature Temperature Source Pulse Rate 71 79 83 Respiratory Rate 26 H 18 13 Respiratory Effort Respiratory Depth Respiratory Pattern Blood Pressure 110/56 L 94/64 116/61 Blood Pressure Mean 73 73 78 Pulse Ox Oxygen Delivery Method 04/26/25 12:45 04/26/25 13:00 04/26/25 13:15 Temperature Temperature Source Pulse Rate 83 82 79 Respiratory Rate 18 13 23 H Respiratory Effort Respiratory Depth Respiratory Pattern Blood Pressure 98/67 115/63 98/50 L Blood Pressure Mean 79 79 66 Pulse Ox 99 100 100 Oxygen Delivery Method MDM MDM MDM Narrative Medical decision making narrative: Patient is a 75-year-old male presenting to emergency department for shortness of breath, weakness and falls. Patient was seen and examined. Vitals are stable. Patient resting bed comfortably no acute distress. Differential includes but is not limited to: CHF exacerbation, fluid overload secondary to needing dialysis, pneumonia, ACS, electrolyte imbalance CBC with no leukocytosis and anemia of 9.1. BMP with baseline CKD. Mild anion gap [place] 20[place] [address]. Inital troponin of 43 and reflex of 37, suspect this is secondary to his CHF. No baseline to compare to. Chest x-ray shows cardiac enlargement and interstitial edema. Hip and pelvis x-ray are negative for any acute fracture. CT lumbar spine shows anterior wedge compression of T11, T12 and L1. With the patient's shortness of breath, chest x-ray findings and elevated BNP, likely CHF exacerbation versus fluid overload needing dialysis. He does not make urine, no indication for Lasix. In addition he has been mildly hypotensive while here. Recommended admission given the patient had 2 falls today and is feeling too weak to ambulate. I did discuss possible placement with the patient and but she states she does not want them placed somewhere. Patient admitted to the hospitalist for further management. Clinical impression: CHF exacerbation weakness frequent falls History & Record Review Discussion w/independent historian: Patient and Significant other Lab Data Attestation: I reviewed the patient's lab results. Labs: Laboratory Results - last 24 hr 04/26/25 04/26/25 09:00 11:35 WBC 10.9 RBC 2.66 L Hgb 9.1 L Hct 27.7 L MCV 104.1 H MCH 34.2 H MCHC 32.9 RDW Std Deviation 56.0 H RDW Coeff of Whitney 15.0 H Plt Count 227 MPV 10.7 Immature Gran % (Auto) 0.800 Neut % (Auto) 74.2 H Lymph % (Auto) 4.8 L [place] % (Auto) 15.3 H Eos % (Auto) 4.8 Baso % (Auto) 0.1 Absolute Neuts (auto) 8.1 H Absolute Lymphs (auto) 0.53 L Nucleated RBC % 0.2 Platelet Estimate ADEQUATE Polychromasia 1+ Sodium 133 Potassium 4.0 Chloride 89 L Carbon Dioxide 23.7 Anion Gap 20 H BUN 48 H Creatinine 5.89 H Estim Creat Clear Calc 13.69 L Est GFR (MDRD) Non-Af 9 L BUN/Creatinine Ratio 8.2 L Glucose 122 H Calcium 9.4 Troponin T High Sens 43 H Troponin T Hi Sens 2 Hr 37 [place] [address] H Radiography Chest X-Ray - ED: 2 View, Read by ED Physician, Cardiomegaly and CHF Diagnostic Testing: Clinical Impression(s) from Imaging Studies Chest X-Ray 04/26/25 09:28 IMPRESSION: Cardiac enlargement. Interstitial edema. Reading Location: [facility] Hip/Pelvis X-Ray 04/26/25 09:28 IMPRESSION: No fracture seen Reading Location: [facility] Lumbar Spine CT 04/26/25 09:28 IMPRESSION: 1. Anterior wedge compression of T11, T12 and L1 greatest at T12 with 25% height loss. 2. Straightening of the lumbar lordosis. Consider spasm 3. [id number] multilevel degenerative disc disease with central stenosis and exit foraminal narrowing. Reading Location: [facility] Discharge Plan Disposition Disposition: Acute Care Hospital [facility] Discharge Date/Time: 04/26/25 14:36
--- NOTE | 2025-04-26 17:40 | HP.PCM.HOS_ITS ---
HPI - General General Date of Admission: 04/26/25 Date of Service: 04/26/25 Chief Complaint: Generalized weakness, intermittent shortness of breath on exertion HPI Daniel SAINI, is a 75 M who presents to the emergency room at [facility] with complaints of generalized weakness and intermittent shortness of breath on exertion. 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 Patient is having difficulty ambulating at home due to generalized weakness, he also complains of intermittent shortness of breath on exertion. Workup in the emergency room included labs-white blood cell count was normal, hemoglobin was low at 9.1, creatinine was elevated at 5.89 and BUN was 48. Troponin was 43 and repeat troponin 2 hours later was 37. Chest x-ray showed cardiac enlargement and interstitial edema, CT of the lumbar spine showed anterior wedge compression at T11, T12, and L1-greatest at T12 with a 25% height loss, there was moderate to severe multilevel degenerative disc disease with central stenosis and exit foraminal narrowing. Discussions were carried out with the patient and his , his was unable to fully care for the patient at home due to his generalized debility. Patient will be placed into observation status on [facility] 3, PT and OT will see the patient, will he will undergo dialysis, patient and his is aware that he may have to go to an extended care facility for short-term rehab services. [facility] Medical History Easy bruising Excessive bleeding Gastric reflux Non-smoker A-V fistula History of Clostridium difficile infection Wears dentures Depression Anxiety Insulin dependent diabetes mellitus Walker as ambulation aid Ambulates with cane Arthritis History of renal dialysis High cholesterol Restless legs Back pain Dietary restriction Shortness of breath on exertion Leg cramps History of pain when walking History of edema History of Holter monitoring History of stress test History of echocardiogram Cardiology follow-up encounter Atrial tachycardia History of CVA (cerebrovascular accident) Left-sided weakness Diabetes mellitus, type 2 Persistent atrial fibrillation BPH (benign prostatic hyperplasia) Depression Normochromic normocytic anemia Iron deficiency History of iron deficiency Cerebral artery occlusion with cerebral infarction Acute right MCA stroke Longstanding persistent atrial fibrillation Chronic combined systolic and diastolic CHF (congestive heart failure) 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 (LBBB) Acute on chronic combined systolic (congestive) and diastolic (congestive) heart failure (02/02/20) History of non-ST elevation myocardial infarction (NSTEMI) (02/02/20) Non-ischemic cardiomyopathy NSVT (nonsustained ventricular tachycardia) Obesity CVA (cerebral vascular accident) (12/2017) Secondary pulmonary arterial hypertension GERD (gastroesophageal reflux disease) Hyperlipidemia Essential (primary) hypertension CKD (chronic kidney disease), stage III Paroxysmal atrial fibrillation Anemia Chronic low back pain Osteoarthritis Home Medications ?Medication ?Instructions ?Recorded ?Last Taken ?Type multivitamin (Daily Multi-Vitamin 1 tab PO DAILY Suppl ement 02/12/22 04/25/25 History tablet) tamsulosin 0.4 mg capsule 0.4 mg PO BID Urine retentio n 02/12/22 04/25/25 History ascorbic acid (vitamin C) 500 mg 1,000 mg PO LUNCH Sup plement 02/28/23 04/25/25 History tablet acetaminophen 500 mg tablet 1,000 mg (2 x 500 mg) PO Q 8H PRN 03/15/23 04/04/25 Rx PRN Pain 1-10 #1 TAB ferrous sulfate 325 mg (65 mg 325 mg PO DAILY suppleme nt #30 tabs 03/15/23 04/25/25 Rx iron) tablet buspirone 15 mg tablet 15 mg PO TID Mood 11/22/23 0 04/25/25 History docusate sodium 100 mg capsule 100 mg PO BID PRN const ipation 11/22/23 Unknown History olanzapine 5 mg tablet 5 mg PO QHS 11/22/23 5 History omeprazole 40 mg capsule,delayed 40 mg PO QDAY 4 04/25/25 History release sertraline 100 mg tablet 100 mg PO QDAY 11/22/2304/09 History zonisamide 50 mg capsule 50 mg PO BID 11/22/23 History aspirin 81 mg tablet,delayed 81 mg PO QDAY 12/08/24 History release (Adult Low Dose Aspirin) rosuvastatin 20 mg tablet 20 mg PO QDAY 12/08/2404/25 History cholecalciferol (vitamin D3) 25 50 mcg PO DAILY 04/25/25 History mcg (1,000 unit) tablet torsemide 100 mg tablet 100 mg PO QDAY 02/18/2504/09 History amiodarone 200 mg tablet 100 mg PO BID BP 03/26/25 History fenofibrate 54 mg tablet 108 mg PO DAILY 03/26/25 History finasteride 5 mg tablet 5 mg PO QHS 03/26/25 5 History apixaban 5 mg tablet (Eliquis) 5 mg PO BID 04/26/25 History dextrose 40 % oral gel 10 g PO Q15M PRN hypoglycemi a 04/26/25 Unknown History doxycycline hyclate 100 mg capsule 100 mg PO BID 04/2604/25/25 History furosemide 40 mg tablet 40 mg PO DAILY 04/26/2504/09 History insulin glargine 100 unit/mL (3 16 unit subcut QHS 04/25/25 History mL) subcutaneous pen (Lantus Solostar U-100 Insulin) insulin lispro 100 unit/mL 6 unit subcut TIDAC SLIDINI NG SCALE 04/26/25 04/25/25 History subcutaneous pen (Humalog KwikPen
--- NOTE | 2025-04-26 17:40 | PCM.HP.STD ---
HPI - General General Date of Admission: 04/26/25 Date of Service: 04/26/25 Chief Complaint: Generalized weakness, intermittent shortness of breath on exertion HPI Daniel SAINI, is a 75 M who presents to the emergency room at [facility] with complaints of generalized weakness and intermittent shortness of breath on exertion. 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 Patient is having difficulty ambulating at home due to generalized weakness, he also complains of intermittent shortness of breath on exertion. Workup in the emergency room included labs-white blood cell count was normal, hemoglobin was low at 9.1, creatinine was elevated at 5.89 and BUN was 48. Troponin was 43 and repeat troponin 2 hours later was 37. Chest x-ray showed cardiac enlargement and interstitial edema, CT of the lumbar spine showed anterior wedge compression at T11, T12, and L1-greatest at T12 with a 25% height loss, there was moderate to severe multilevel degenerative disc disease with central stenosis and exit foraminal narrowing. Discussions were carried out with the patient and his , his was unable to fully care for the patient at home due to his generalized debility. Patient will be placed into observation status on [facility] 3, PT and OT will see the patient, will he will undergo dialysis, patient and his is aware that he may have to go to an extended care facility for short-term rehab services. [facility] Medical History Easy bruising Excessive bleeding Gastric reflux Non-smoker A-V fistula History of Clostridium difficile infection Wears dentures Depression Anxiety Insulin dependent diabetes mellitus Walker as ambulation aid Ambulates with cane Arthritis History of renal dialysis High cholesterol Restless legs Back pain Dietary restriction Shortness of breath on exertion Leg cramps History of pain when walking History of edema History of Holter monitoring History of stress test History of echocardiogram Cardiology follow-up encounter Atrial tachycardia History of CVA (cerebrovascular accident) Left-sided weakness Diabetes mellitus, type 2 Persistent atrial fibrillation BPH (benign prostatic hyperplasia) Depression Normochromic normocytic anemia Iron deficiency History of iron deficiency Cerebral artery occlusion with cerebral infarction Acute right MCA stroke Longstanding persistent atrial fibrillation Chronic combined systolic and diastolic CHF (congestive heart failure) 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 (LBBB) Acute on chronic combined systolic (congestive) and diastolic (congestive) heart failure (02/02/20) History of non-ST elevation myocardial infarction (NSTEMI) (02/02/20) Non-ischemic cardiomyopathy NSVT (nonsustained ventricular tachycardia) Obesity CVA (cerebral vascular accident) (12/2017) Secondary pulmonary arterial hypertension GERD (gastroesophageal reflux disease) Hyperlipidemia Essential (primary) hypertension CKD (chronic kidney disease), stage III Paroxysmal atrial fibrillation Anemia Chronic low back pain Osteoarthritis Home Medications ?Medication ?Instructions ?Recorded ?Last Taken ?Type multivitamin (Daily Multi-Vitamin 1 tab PO DAILY Supplement 02/12/22 04/25/25 History tablet) tamsulosin 0.4 mg capsule 0.4 mg PO BID Urine retention 02/12/22 04/25/25 History ascorbic acid (vitamin C) 500 mg 1,000 mg PO LUNCH Supplement 02/28/23 04/25/25 History tablet acetaminophen 500 mg tablet 1,000 mg (2 x 500 mg) PO Q8H PRN 03/15/23 04/04/25 Rx PRN Pain 1-10 #1 TAB ferrous sulfate 325 mg (65 mg 325 mg PO DAILY supplement #30 tabs 03/15/23 04/25/25 Rx iron) tablet buspirone 15 mg tablet 15 mg PO TID Mood 11/22/23 04/25/25 History docusate sodium 100 mg capsule 100 mg PO BID PRN constipation 11/22/23 Unknown History olanzapine 5 mg tablet 5 mg PO QHS 11/22/23 04/25/25 History omeprazole 40 mg capsule,delayed 40 mg PO QDAY 11/22/23 04/25/25 History release sertraline 100 mg tablet 100 mg PO QDAY 11/22/23 04/25/25 History zonisamide 50 mg capsule 50 mg PO BID 11/22/23 04/25/25 History aspirin 81 mg tablet,delayed 81 mg PO QDAY 12/08/24 04/25/25 History release (Adult Low Dose Aspirin) rosuvastatin 20 mg tablet 20 mg PO QDAY 12/08/24 04/25/25 History cholecalciferol (vitamin D3) 25 50 mcg PO DAILY 02/18/25 04/25/25 History mcg (1,000 unit) tablet torsemide 100 mg tablet 100 mg PO QDAY 02/18/25 04/25/25 History amiodarone 200 mg tablet 100 mg PO BID BP 03/26/25 04/25/25 History fenofibrate 54 mg tablet 108 mg PO DAILY 03/26/25 04/25/25 History finasteride 5 mg tablet 5 mg PO QHS 03/26/25 04/25/25 History apixaban 5 mg tablet (Eliquis) 5 mg PO BID 04/26/25 04/25/25 History dextrose 40 % oral gel 10 g PO Q15M PRN hypoglycemia 04/26/25 Unknown History doxycycline hyclate 100 mg capsule 100 mg PO BID 04/26/25 04/25/25 History furosemide 40 mg tablet 40 mg PO DAILY 04/26/25 04/25/25 History insulin glargine 100 unit/mL (3 16 unit subcut QHS 04/26/25 04/25/25 History mL) subcutaneous pen (Lantus Solostar U-100 Insulin) insulin lispro 100 unit/mL 6 unit subcut TIDAC SLIDINING SCALE 04/26/25 04/25/25 History subcutaneous pen (Humalog KwikPen (U-100) Insulin) magnesium 250 mg tablet 250 mg PO DAILY SUPPLEMENT 04/26/25 04/25/25 History ondansetron HCl 4 mg tablet 2 mg PO Q8H PRN nausea and vomiting 04/26/25 04/25/25 History polyethylene glycol 3350 17 17 g PO DAILY PRN constipation 04/26/25 Unknown History gram/dose oral powder (ClearLax) Allergy/AdvReac Type Severity Reaction Status Date / Time rofecoxib Allergy Severe Swelling Verified 04/21/25 14:50 Family History Mother Heart disease Sister Heart disease Myocardial infarction CVA (cerebral vascular accident) Diabetes Brother CVA (cerebral vascular accident) Other Persistent atrial fibrillation Surgical History History of insertion of nerve stimulator History of surgery Hx of colonoscopy Hx of lumbar discectomy Hx of total knee arthroplasty History of knee replacement, total Social History Smoking Status: Never smoker alcohol intake: current alcohol intake frequency: holidays/special occasions only Alcohol type: beer substance use type: does not use caffeine: Yes Type: coffee Number of servings: 2 ROS Constitutional Constitutional: Reports weakness; Denies anorexia, change in weight, fever(s) or night sweats Eyes Eyes: Denies blurry vision, change in vision, discharge from eye(s) or eye pain Cardiovascular Cardiovascular: Reports dyspnea on exertion and edema; Denies chest pain, claudication or palpitations Respiratory/Chest Respiratory/Chest: Reports dyspnea and shortness of breath with exertion; Denies cough, hemoptysis or shortness of breath at rest Gastrointestinal Gastrointestinal: Denies abdominal pain, constipation, diarrhea, hematemesis, hematochezia, melena, nausea or vomiting Genitourinary Genitourinary: Denies dysuria, hematuria, urinary frequency, urinary hesitancy, urinary incontinence or urinary urgency Musculoskeletal Musculoskeletal: Denies back pain, joint pain, joint stiffness, joint swelling, myalgias or neck pain Neurologic Neurologic: Denies abnormal gait, abnormal speech, disequilibrium, dizziness, focal weakness, headache(s), loss of vision, numbness, other visual disturbances, paresthesias, syncope or tingling Psychiatric Psychiatric: Denies anxiety, cognitive impairment, depression, irritability, mood swings or suicidal ideation Endocrine Endocrinology: Denies change in body appearance, cold intolerance, excessive sweating, heat intolerance, polydipsia or polyuria Hematologic/Lymphatic Hematologic/Lymphatic: Denies none, anemia, easy bleeding, easy bruising or lymphadenopathy Allergic/Immunologic Allergic/Immunologic: Denies rhinitis, urticaria, eczemia or asthma Vital Signs Vital Signs Vital Signs: 04/26/25 09:08 04/26/25 09:08 04/26/25 09:17 Temperature 98.1 F Temperature Source Oral Pulse Rate 97 Respiratory Rate 22 H Respiratory Effort Normal Non-Labored Respiratory Depth Normal Respiratory Pattern Normal Normal Blood Pressure 95/61 Blood Pressure Mean 72 Blood Pressure Source Blood Pressure Position Blood Pressure Location Pulse Ox 97 Oxygen Delivery Method Room Air Room Air 04/26/25 09:28 04/26/25 09:44 04/26/25 09:45 Temperature Temperature Source Pulse Rate 93 87 Respiratory Rate 17 17 Respiratory Effort Respiratory Depth Respiratory Pattern Blood Pressure 96/62 Blood Pressure Mean 72 Blood Pressure Source Blood Pressure Position Blood Pressure Location Pulse Ox 97 96 Oxygen Delivery Method Room Air 04/26/25 09:45 04/26/25 10:00 04/26/25 10:00 Temperature Temperature Source Pulse Rate Respiratory Rate Respiratory Effort Respiratory Depth Respiratory Pattern Blood Pressure 96/62 89/48 L 89/48 L Blood Pressure Mean 72 62 62 Blood Pressure Source Blood Pressure Position Blood Pressure Location Pulse Ox Oxygen Delivery Method 04/26/25 10:09 04/26/25 10:15 04/26/25 10:30 Temperature Temperature Source Pulse Rate 73 72 98 Respiratory Rate 15 18 15 Respiratory Effort Respiratory Depth Respiratory Pattern Blood Pressure 79/48 L 101/61 Blood Pressure Mean 58 72 Blood Pressure Source Blood Pressure Position Blood Pressure Location Pulse Ox 97 98 96 Oxygen Delivery Method 04/26/25 10:45 04/26/25 11:11 04/26/25 11:22 Temperature Temperature Source Pulse Rate 88 87 84 Respiratory Rate 18 17 Respiratory Effort Respiratory Depth Respiratory Pattern Blood Pressure 101/56 L 98/61 Blood Pressure Mean 70 71 Blood Pressure Source Blood Pressure Position Blood Pressure Location Pulse Ox 100 99 Oxygen Delivery Method 04/26/25 11:30 04/26/25 11:32 04/26/25 11:45 Temperature Temperature Source Pulse Rate 84 72 Respiratory Rate 21 H 20 H Respiratory Effort Respiratory Depth Respiratory Pattern Blood Pressure 97/51 L 96/55 L 100/59 L Blood Pressure Mean 66 69 72 Blood Pressure Source Blood Pressure Position Blood Pressure Location Pulse Ox Oxygen Delivery Method 04/26/25 12:00 04/26/25 12:15 04/26/25 12:30 Temperature Temperature Source Pulse Rate 71 79 83 Respiratory Rate 26 H 18 13 Respiratory Effort Respiratory Depth Respiratory Pattern Blood Pressure 110/56 L 94/64 116/61 Blood Pressure Mean 73 73 78 Blood Pressure Source Blood Pressure Position Blood Pressure Location Pulse Ox Oxygen Delivery Method 04/26/25 12:45 04/26/25 13:00 04/26/25 13:15 Temperature Temperature Source Pulse Rate 83 82 79 Respiratory Rate 18 13 23 H Respiratory Effort Respiratory Depth Respiratory Pattern Blood Pressure 98/67 115/63 98/50 L Blood Pressure Mean 79 79 66 Blood Pressure Source Blood Pressure Position Blood Pressure Location Pulse Ox 99 100 100 Oxygen Delivery Method 04/26/25 13:30 04/26/25 13:45 04/26/25 14:00 Temperature Temperature Source Pulse Rate 84 82 75 Respiratory Rate 23 H 15 22 H Respiratory Effort Respiratory Depth Respiratory Pattern Blood Pressure 103/61 106/59 L 107/59 L Blood Pressure Mean 74 75 73 Blood Pressure Source Blood Pressure Position Blood Pressure Location Pulse Ox 99 98 98 Oxygen Delivery Method 04/26/25 14:05 04/26/25 15:43 04/26/25 15:44 Temperature 97.9 F 98 F Temperature Source Oral Pulse Rate 75 82 Respiratory Rate 22 H 18 Respiratory Effort Normal Non-Labored Respiratory Depth Normal Respiratory Pattern Normal Blood Pressure 107/59 L 94/52 L Blood Pressure Mean 75 66 Blood Pressure Source Monitor Blood Pressure Position Semi-Fowlers Blood Pressure Location Right Arm Pulse Ox 98 95 Oxygen Delivery Method Room Air Room Air Weight Weight: 117.3 kg Body Mass Index (BMI) 38.2 Physical Exam Const alert, oriented x3 and no apparent distress General Appearance: cooperative, well kempt and well developed Orientation / Consciousness: awake, oriented to person, oriented to place and oriented to time HEENT normocephalic, head/scalp atraumatic, hearing grossly normal bilaterally and moist oral mucous membranes HEENT Narrative: Patient has an eschar over his left bottom lip Eyes PERRL, EOMs intact bilaterally and conjunctivae normal Neck supple, no JVD, thyroid normal and no carotid bruits General: trachea midline Resp normal respiratory effort, no retractions, no use of accessory muscles and clear to auscultation bilaterally Auscultation: Negative for rales, rhonchi or wheezes Cardio S1 normal heart sound, S2 normal heart sound, no murmurs, no rub and no gallops Cardio Narrative: Heart rate and rhythm is irregular at times GI normal to inspection, nondistended, normoactive bowel sounds, soft to palpation, non-tender and non-distended Extremity Extremity Narrative: Generalized lower leg edema is noted bilaterally Skin Skin Narrative: Patient has a traumatic eschar on his left bottom lip Neuro oriented x3, CN's II-XII intact bilaterally, moves all extremities, no focal motor deficits and no sensory deficits noted Sensorium / Orientation: awake and alert Speech: speech normal Psych affect normal Results Lab / Micro Data 04/26/25 09:00 04/26/25 09:00 Labs: Laboratory Results - last 24 hr 04/26/25 09:00: WBC 10.9, RBC 2.66 L, Hgb 9.1 L, Hct 27.7 L, MCV 104.1 H, MCH 34.2 H, MCHC 32.9, RDW Std Deviation 56.0 H, RDW Coeff of Whitney 15.0 H, Plt Count 227, MPV 10.7, Immature Gran % (Auto) 0.800, Neut % (Auto) 74.2 H, Lymph % (Auto) 4.8 L, Bollinger % (Auto) 15.3 H, Eos % (Auto) 4.8, Baso % (Auto) 0.1, Absolute Neuts (auto) 8.1 H, Absolute Lymphs (auto) 0.53 L, Nucleated RBC % 0.2, Platelet Estimate ADEQUATE, Polychromasia 1+, Sodium 133, Potassium 4.0, Chloride 89 L, Carbon Dioxide 23.7, Anion Gap 20 H, BUN 48 H, Creatinine 5.89 H, Estim Creat Clear Calc 13.69 L, Est GFR (MDRD) Non-Af 9 L, BUN/Creatinine Ratio 8.2 L, Glucose 122 H, Calcium 9.4, Troponin T High Sens 43 H, [place] [address] H 04/26/25 11:35: Troponin T Hi Sens 2 Hr 37 H 04/26/25 15:31: POC Glucose 210 H Micro: Microbiology 04/26/25 09:43 Mucosa - Nose SARS-CoV-2, Influenza & RSV (PCR) - Final Imaging Radiology Impression Chest X-Ray 04/26/25 09:28 IMPRESSION: Cardiac enlargement. Interstitial edema. Reading Location: [facility] Hip/Pelvis X-Ray 04/26/25 09:28 IMPRESSION: No fracture seen Reading Location: [facility] Lumbar Spine CT 04/26/25 09:28 IMPRESSION: 1. Anterior wedge compression of T11, T12 and L1 greatest at T12 with 25% height loss. 2. Straightening of the lumbar lordosis. Consider spasm 3. [id number] multilevel degenerative disc disease with central stenosis and exit foraminal narrowing. Reading Location: [facility] Assessment & Plan Assessment/Plan (1) Fatigue: PLAN: Plan 1. Generalized debility-secondary to multiple medical problems-patient will be placed into observation status, he will be evaluated by PT and OT, he may have to go to [facility] for short-term rehab services. #2 end-stage renal disease with vascular congestion-patient will undergo dialysis tomorrow #3 paroxysmal atrial fibrillation-patient is not on rate control medication and chronic anticoagulation #4 essential hypertension-patient will remain on his present medications #5 chronic depression-patient will remain on his home medications #6 chronic left knee infection-patient is on doxycycline twice daily #7 type 2 diabetes-blood sugars will be monitored, sliding scale insulin will be administered as needed #8 chronic use of 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-patient remains on Eliquis due to his paroxysmal A-fib Patient is on antiseizure medication-he states his PCP placed him on it after his stroke, patient denies any seizure history Total clinical time spent by myself addressing patient's medical issues, reviewing all of his data, and collaborating with patient's care team: 75 minutes Charges/Coding Visit Charges Inpatient E&M: 77977 Init Hosp L3
[2025-04-26] MEDS: APIXABAN 5 MG TABLET PO (21:25)
[2025-04-26] MEDS: Insulin Glargine-YFGN 100 UNIT/ML Pen 16 UNIT SC (21:27)
[2025-04-26] MEDS: OLANZapine 5 MG/TAB TAB.RAPDIS PO (21:27)
[2025-04-27] VITALS (15 sets, daily range): BP systolic 99–120; BP diastolic 55–71; PULSE 72–97; RESP 14–20; TEMP 36.4–36.8; O2SAT 94–98; BMI 38.2; BMI 36.1
[2025-04-27 06:29] LABS: Hematocrit 26.0 % (40-54); Hemoglobin 8.7 g/dL (13.0-16.5); Immature Granulocytes Count 0.050 X10^3/uL (0.0-0.0); Mean Corp Hgb Conc 33.5 g/dL (32-36); Mean Corpuscular Volume 101.6 fL (80-94); Mean Platelet Vol. 10.2 fl (6.2-12.0); NRBC Flagged by Analyzer 0 % (0-5); POSITIVE DIFFERENTIAL YES; Platelet Count 209 K/mm3 (150-450); RBC Distribution Width CV 14.6 % (11.6-14.6); RBC Distribution Width SD 53.9 fl (35.1-43.9); Red Blood Count 2.56 M/mm3 (4.6-6.2); White Blood Count 8.7 K/mm3 (4.4-11.0)
[2025-04-27 06:54] LABS: Anion Gap 21 (5-15); BUN 60 mg/dL (4-19); BUN/Creat Ratio 8.8 RATIO (10-20); Calcium,Total 8.8 mg/dL (7.6-11.0); Carbon Dioxide 21.2 mmol/L (21.0-32.0); Chloride 89 mmol/L (98-108); Estimated Creatinine Clearance 11.84 ml/min (50-250); Glucose 207 mg/dL (70-99); Potassium 4.0 mmol/L (3.3-5.1)
[2025-04-27] MEDS: APIXABAN 5 MG TABLET PO ×2 (08:10→21:00)
[2025-04-27] MEDS: Magnesium Chloride 64 MG Delay Rel.Tablet PO (08:10)
[2025-04-27] MEDS: Aspirin E.C. 81 MG Tablet PO (08:10)
[2025-04-27] MEDS: Cholecalciferol (VIT D3) 25 MCG TABLET (1,000 UNITS) 50 MCG PO (08:12)
[2025-04-27] MEDS: 0.9% Saline Lock 10 ML Syringe IV (08:44)
[2025-04-27] MEDS: PureFlow B 3K Dialysis Soln 1 BAG 6 BAG PF (08:44)
[2025-04-27] MEDS: 0.9% Normal Saline 1,000 ML IV.SOLN. 1000 ML OPERA.SITE (08:45)
--- NOTE | 2025-04-27 10:54 | PCM.CONS.R ---
Assessment & Plan Assessment/Plan (1) ESRD (end stage renal disease) on dialysis: PLAN: Plan Patient has history of end-stage renal disease currently dialyzing via tunneled hemodialysis catheter. Patient's last dialysis was on at [facility]. He did miss dialysis last because of surgery for PD catheter. Patient is above EDW; current edw 111kg. CXR showed some congestion. We will attempt fluid removal with dialysis as patient/blood pressure tolerates. Patient will continue to dialyze via tunneled hemodialysis catheter. He does have a maturing AV fistula but not ready for use at this time. He recently had PD catheter inserted not ready for use at this time either. White count has been normal. Patient has history of anemia of chronic disease and receives SMOOTH at the [facility]. Will monitor hemoglobin trends. Patient was admitted for generalized debility, recent falls, he is to be evaluated by PT and OT today. Further orders forthcoming as hospitalization evolves, thank you for allowing us participate in the care of Mr. Saini. Assessment and plan reviewed with Dr. Sanchez. HPI Consult Data Date of Consult: 04/27/25 HPI Narrative HPI Narrative: VIVI SAINI, is a 75 M with history of end-stage renal disease on hemodialysis via tunneled hemodialysis catheter dialyzing at [facility] Saturday schedule who presented to the emergency room yesterday with complaints of weakness, shortness of breath and recent falls at home. Nephrology consulted as patient has history of end-stage renal disease, for hemodialysis management. Patient was seen and examined this morning, he is on hemodialysis and tolerating treatment well. Patient's is at bedside. reports patient has had multiple falls over the last week. Last patient had insertion peritoneal dialysis catheter in anticipation to undergo peritoneal dialysis at home. Per since PD catheter inserted patient has been more weak than normal. No recent fevers or abdominal pain. Normal bowel movements. Patient has had some vomiting. He has also had some clear pinkish blood drainage from PD catheter insertion site. Patient's states she contacted the surgeon. [facility] Medical History Easy bruising Excessive bleeding Gastric reflux Non-smoker A-V fistula History of Clostridium difficile infection Wears dentures Depression Anxiety Insulin dependent diabetes mellitus Walker as ambulation aid Ambulates with cane Arthritis History of renal dialysis High cholesterol Restless legs Back pain Dietary restriction Shortness of breath on exertion Leg cramps History of pain when walking History of edema History of Holter monitoring History of stress test History of echocardiogram Cardiology follow-up encounter Atrial tachycardia History of CVA (cerebrovascular accident) Left-sided weakness Diabetes mellitus, type 2 Persistent atrial fibrillation BPH (benign prostatic hyperplasia) Depression Normochromic normocytic anemia Iron deficiency History of iron deficiency Cerebral artery occlusion with cerebral infarction Acute right MCA stroke Longstanding persistent atrial fibrillation Chronic combined systolic and diastolic CHF (congestive heart failure) 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 (LBBB) Acute on chronic combined systolic (congestive) and diastolic (congestive) heart failure (02/02/20) History of non-ST elevation myocardial infarction (NSTEMI) (02/02/20) Non-ischemic cardiomyopathy NSVT (nonsustained ventricular tachycardia) Obesity CVA (cerebral vascular accident) (12/2017) Secondary pulmonary arterial hypertension GERD (gastroesophageal reflux disease) Hyperlipidemia Essential (primary) hypertension CKD (chronic kidney disease), stage III Paroxysmal atrial fibrillation Anemia Chronic low back pain Osteoarthritis Home Medications ?Medication ?Instructions ?Recorded ?Last Taken ?Type multivitamin (Daily Multi-Vitamin 1 tab PO DAILY Supplement 02/12/22 04/25/25 History tablet) tamsulosin 0.4 mg capsule 0.4 mg PO BID Urine retention 02/12/22 04/25/25 History ascorbic acid (vitamin C) 500 mg 1,000 mg PO LUNCH Supplement 02/28/23 04/25/25 History tablet acetaminophen 500 mg tablet 1,000 mg (2 x 500 mg) PO Q8H PRN 03/15/23 04/04/25 Rx PRN Pain 1-10 #1 TAB ferrous sulfate 325 mg (65 mg 325 mg PO DAILY supplement #30 tabs 03/15/23 04/25/25 Rx iron) tablet buspirone 15 mg tablet 15 mg PO TID Mood 11/22/23 04/25/25 History docusate sodium 100 mg capsule 100 mg PO BID PRN constipation 11/22/23 Unknown History olanzapine 5 mg tablet 5 mg PO QHS 11/22/23 04/25/25 History omeprazole 40 mg capsule,delayed 40 mg PO QDAY 11/22/23 04/25/25 History release sertraline 100 mg tablet 100 mg PO QDAY 11/22/23 04/25/25 History zonisamide 50 mg capsule 50 mg PO BID 11/22/23 04/25/25 History aspirin 81 mg tablet,delayed 81 mg PO QDAY 12/08/24 04/25/25 History release (Adult Low Dose Aspirin) rosuvastatin 20 mg tablet 20 mg PO QDAY 12/08/24 04/25/25 History cholecalciferol (vitamin D3) 25 50 mcg PO DAILY 02/18/25 04/25/25 History mcg (1,000 unit) tablet torsemide 100 mg tablet 100 mg PO QDAY 02/18/25 04/25/25 History amiodarone 200 mg tablet 100 mg PO BID BP 03/26/25 04/25/25 History fenofibrate 54 mg tablet 108 mg PO DAILY 03/26/25 04/25/25 History finasteride 5 mg tablet 5 mg PO QHS 03/26/25 04/25/25 History apixaban 5 mg tablet (Eliquis) 5 mg PO BID 04/26/25 04/25/25 History dextrose 40 % oral gel 10 g PO Q15M PRN hypoglycemia 04/26/25 Unknown History doxycycline hyclate 100 mg capsule 100 mg PO BID 04/26/25 04/25/25 History furosemide 40 mg tablet 40 mg PO DAILY 04/26/25 04/25/25 History insulin glargine 100 unit/mL (3 16 unit subcut QHS 04/26/25 04/25/25 History mL) subcutaneous pen (Lantus Solostar U-100 Insulin) insulin lispro 100 unit/mL 6 unit subcut TIDAC SLIDINING SCALE 04/26/25 04/25/25 History subcutaneous pen (Humalog KwikPen (U-100) Insulin) magnesium 250 mg tablet 250 mg PO DAILY SUPPLEMENT 04/26/25 04/25/25 History ondansetron HCl 4 mg tablet 2 mg PO Q8H PRN nausea and vomiting 04/26/25 04/25/25 History polyethylene glycol 3350 17 17 g PO DAILY PRN constipation 04/26/25 Unknown History gram/dose oral powder (ClearLax) Allergy/AdvReac Type Severity Reaction Status Date / Time rofecoxib Allergy Severe Swelling Verified 04/21/25 14:50 Family History Mother Heart disease Sister Heart disease Myocardial infarction CVA (cerebral vascular accident) Diabetes Brother CVA (cerebral vascular accident) Other Persistent atrial fibrillation Surgical History History of insertion of nerve stimulator History of surgery Hx of colonoscopy Hx of lumbar discectomy Hx of total knee arthroplasty History of knee replacement, total Social History Smoking Status: Never smoker alcohol intake: current alcohol intake frequency: holidays/special occasions only Alcohol type: beer substance use type: does not use caffeine: Yes Type: coffee Number of servings: 2 ROS ROS Narrative As in HPI Physical Exam Narrative Alert and oriented x 3, no apparent distress S1, S2, RRR Lungs sound clear anteriorly, diminished breath sounds. On room air. Abdomen soft, nontender. PD catheter dressing with old bloody drainage. No swelling to insertion site. No current drainage. Edema bilateral legs Maturing left upper arm AV fistula with positive thrill and bruit Tunneled hemodialysis catheter dressing clean, dry and intact Lab / Micro Data 04/27/25 06:09 04/27/25 06:09 Labs: Laboratory Results - last 24 hr 04/26/25 11:35: Troponin T Hi Sens 2 Hr 37 H 04/26/25 15:31: POC Glucose 210 H 04/26/25 21:18: POC Glucose 197 H 04/27/25 01:19: POC Glucose 199 H 04/27/25 06:09: WBC 8.7, RBC 2.56 L, Hgb 8.7 L, Hct 26.0 L, MCV 101.6 H, MCH 34.0 H, MCHC 33.5, RDW Std Deviation 53.9 H, RDW Coeff of Whitney 14.6, Plt Count 209, MPV 10.2, Immature Gran % (Auto) 0.600, Neut % (Auto) 76.1 H, Lymph % (Auto) 5.3 L, [place] % (Auto) 12.5 H, Eos % (Auto) 5.4 H, Baso % (Auto) 0.1, Absolute Neuts (auto) 6.7, Absolute Lymphs (auto) 0.46 L, Nucleated RBC % 0, Sodium 131 L, Potassium 4.0, Chloride 89 L, Carbon Dioxide 21.2, Anion Gap 21 H, BUN 60 H, Creatinine 6.81 H, Estim Creat Clear Calc 11.84 L, Est GFR (MDRD) Non-Af 8 L, BUN/Creatinine Ratio 8.8 L, Glucose 207 H, Calcium 8.8 04/27/25 06:35: POC Glucose 199 H 04/27/25 08:00: POC Glucose 202 H Micro: Microbiology 04/26/25 09:43 Mucosa - Nose SARS-CoV-2, Influenza & RSV (PCR) - Final
--- NOTE | 2025-04-27 12:22 | CASEMGMT ---
ANA PAULA OCHOA Assessment: Face to Face with pt for initial transition planning/care coordination assessment. ANA PAULA OCHOA introduced self and role at [facility], pt voices understanding and consents to assessment. Pt is A&O x4 and answers all questions appropriately at this time. Pt lying in bed with at bedside receiving dialysis in no distress. Care providers, pharmacy, and demographics verified/updated. Admitting Dx: debility Strata Score: 3 PCP:Matheus Specialists: Wes, cardio; Laura nephro Preferred Pharmacy: [facility] Retail Insurance: [facility] MCR Dual Complete, [facility] Community Plan Prescription Benefit: yes LNOK: Magaly Irwin, Living Arrangements: Pt lives with in a mobile home with 4 steps to enter with a rail and a lift. Pt reports he needs assistance with bathing and dressing which his provides. Pt also does the cooking, laundry and gets groceries. Pt denies concerns at home. Transportation: Pt provides transportation as well as [employer]. DME:walk in shower with grab bars, rollator, shower chair, walker, CGM with sufficient supply of sensors, cane, w/c, insulin with sufficient supply as well as needles. HHC/SNF:Pt has had HHC in the past but cannot recall the name of the agency. Pt has been to [facility] and [facility]. Pt states no concerns with going home at time of dc. Pt states he feels strong enough to return home. Pt states he did not have food for 2 days d/t being sick and this has made him weak. Pt has not had therapy yet. Pt is aware that once he has therapy to be thinking if he feels he can do this at home. Pt states he will do so. Discussed home options for therapy as well as outpt should this be needed. Pt has dialysis at [facility] on /Sat with a chair time of 6:30. Pt uses [employer] for transportation on / and pt transports pt on Saturdays. Pt states no further concerns/needs. CM to follow. Advised pt to ask CM if any further questions/concerns/needs arise, voices understanding. Pt Goal: Home Plan: TBD pending therapy keyon Arshad RN, CM
--- NOTE | 2025-04-27 14:37 | CASEMGMT ---
SANCHEZ Met with patient to complete SANCHEZ form. SANCHEZ form and its content were verbally explained and patient's questions were answered to the best of my ability.? Patient voiced understanding and signed SANCHEZ form.? Patient provided a copy of signed SANCHEZ form and original placed in patient's chart.? Patient had no further questions. Zakia Valentine, Discharge Planning Asst
--- NOTE | 2025-04-27 18:15 | PN.HOSP_ITS ---
Reason for Visit Chief Complaint: Generalized weakness, intermittent shortness of breath on exertion Subjective Subjective Patient was seen and examined today, he underwent dialysis and 4 L of fluid was removed. Patient told case management that he would rather go home then go to a skilled facility Objective Data Objective Data Vital Signs: Vital Signs Temp Pulse Resp BP Pulse Ox O2 Del Method 98.1 F 97 18 101/63 96 Room Air 04/27/25 14:08 04/27/25 14:08 04/27/25 14:08 04/27/25 14:08 04/27/25 14:08 04/27/25 14:09 Oxygen Delivery Method Room Air Weight: 110.8 kg Body Mass Index (BMI) 36.1 Intake & Output: Intake and Output for Last 24 Hours 04/25/25 04/26/25 04/27/25 23:59 23:59 23:59 Intake Total 400 / 400 200 / 200 Output Total 4140 / 4140 Balance 400 / 400 -3940 / -3940 Lab / Micro Data 04/27/25 06:09 04/27/25 06:09 Labs: Laboratory Results - last 24 hr 04/26/25 21:18: POC Glucose 197 H 04/27/25 01:19: POC Glucose 199 H 04/27/25 06:09: WBC 8.7, RBC 2.56 L, Hgb 8.7 L, Hct 26.0 L, MCV 101.6 H, MCH 34.0 H, MCHC 33.5, RDW Std Deviation 53.9 H, RDW Coeff of Whitney 14.6, Plt Count 209, MPV 10.2, Immature Gran % (Auto) 0.600, Neut % (Auto) 76.1 H, Lymph % (Auto) 5.3 L, [place] % (Auto) 12.5 H, Eos % (Auto) 5.4 H, Baso % (Auto) 0.1, Absolute Neuts (auto) 6.7, Absolute Lymphs (auto) 0.46 L, Nucleated RBC % 0, S odium 131 L, Potassium 4.0, Chloride 89 L, Carbon Dioxide 21.2, Anion Gap 21 H, BUN 60 H, Creatinine 6.81 H, Estim Creat Clear Calc 11.84 L, Est GFR (MDRD) Non- Af 8 L, BUN/Creatinine Ratio 8.8 L, Glucose 207 H, Calcium 8.8 04/27/25 06:35: POC Glucose 199 H 04/27/25 08:00: POC Glucose 202 H 04/27/25 11:39: POC Glucose 102 04/27/25 16:17: POC Glucose 192 H Micro: Microbiology 04/26/25 09:43 Mucosa - Nose SARS-CoV-2, Influenza & RSV (PCR) - Final Physical Exam Narrative alert, oriented x3 and no apparent distress General Appearance: cooperative, well kempt and well developed Orientation / Consciousness: awake, oriented to person, oriented to place and oriented to time HEENT normocephalic, head/scalp atraumatic, hearing grossly normal bilaterally and moist oral mucous membranes HEENT Narrative: Patient has an eschar over his left bottom lip Eyes PERRL, EOMs intact bilaterally and conjunctivae normal Neck supple, no JVD, thyroid normal and no carotid bruits General: trachea midline Resp normal respiratory effort, no retractions, no use of accessory muscles and clear to auscultation bilaterally Auscultation: Negative for rales, rhonchi or wheezes Cardio S1 normal heart sound, S2 normal heart sound, no murmurs, no rub and no gallops Cardio Narrative: Heart rate and rhythm is irregular at times GI normal to inspection, nondistended, normoactive bowel sounds, soft to palpation, non-tender and non-distended Extremity Extremity Narrative: Generalized lower leg edema is noted bilaterally Skin Skin Narrative: Patient has a traumatic eschar on his left bottom lip Neuro oriented x3, CN's II-XII intact bilaterally, moves all extremities, no focal motor deficits and no sensory deficits noted Sensorium / Orientation: awake and alert Speech: speech normal Psych affect normal Assessment & Plan Assessment/Plan (1) Fatigue: PLAN: Plan 1. Generalized debility-secondary to multiple medical problems-notes from physical therapy today recommended the patient could go home with help, PT and OT will continue to see the patient #2 end-stage renal disease with vascular congestion-nephrology is following #3 paroxysmal atrial fibrillation-patient is not on rate control medication and chronic anticoagulation #4 essential hypertension-patient will remain on his present medications #5 chronic depression-patient will remain on his home medications #6 chronic left knee infection-patient is on doxycycline twice daily #7 type 2 diabetes-blood sugars will be monitored, sliding scale insulin will be administered as needed #8 chronic use of 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-patient remains on Eliquis due to his paroxysmal A-fib Patient is on antiseizure medication-he states his PCP placed him on it after his stroke, patient denies any seizure history Total clinical time spent by myself addressing patient's medical issues, reviewing all of his data, and collaborating with patient's care team: 35 minutes Charges/Coding Visit Charges Inpatient E&M: 21672 Subs Hosp L2
[2025-04-27] MEDS: Insulin Glargine-YFGN 100 UNIT/ML Pen 16 UNIT SC (20:57)
[2025-04-27] MEDS: OLANZapine 5 MG/TAB TAB.RAPDIS PO (21:03)
[2025-04-28 03:30] VITALS: BP 118/64; PULSE 83; RESP 17; TEMP 36.6; O2SAT 99
[2025-04-28 07:44] VITALS: O2SAT 93
[2025-04-28 09:00] VITALS: BP 125/70; PULSE 94; RESP 18; TEMP 36.6; O2SAT 98
--- NOTE | 2025-04-28 09:21 | CASEMGMT ---
Discharge Planning A list of?HH providers including quality and resource use data and consistent with the patient's preferred geographic region, medical needs, and insurance network was created in [facility] Guide.? This list was provided to the RN DON. Zakia Valentine, Discharge Planning Asst.
--- NOTE | 2025-04-28 09:24 | CASEMGMT ---
Addendum entered by Jacque Ugarte 04/28/25 15:47: Received confirmation from [facility] that they attempted to reach pt and were unsuccessful. Message stated that if they attempted 3x without success, they would cancel the referral. TC to phone number, spoke with pt and she states they are set up to come on Saturday. Addendum entered by Jacque Ugarte 04/28/25 14:09: [facility] has accepted pt for care with the dx that was added to order. Hospitalist ok'd dx. ANA PAULA OCHOA into pt room, pt and aware. Pt and deny any further homegoing needs at this time. Addendum entered by Jacque Ugarte 04/28/25 10:00: ANA PAULA OCHOA into pt room as pt nurse states pt has an appt at noon he needs to attend. Per hospitalist, ok to go to appt and pt may dc. Pt and have chosen 1. [facility] 2. [facility] 3. [facility]. Requested dc assistant corporate secretary send referrals. Original Note: ANA PAULA OCHOA into pt room, pt sitting up in chair. Provided pt with a list of HH options created by dc assistant corporate secretary. Pt states he would like to review with his as she is on her way in. Pt aware that RN CM will request his top 3 choices for referrals to be made. Pt to ask for ANA PAULA OCHOA when choices have been made.
[2025-04-28] MEDS: Aspirin E.C. 81 MG Tablet PO (09:26)
[2025-04-28] MEDS: APIXABAN 5 MG TABLET PO (09:28)
[2025-04-28] MEDS: Magnesium Chloride 64 MG Delay Rel.Tablet PO (09:29)
[2025-04-28] MEDS: Cholecalciferol (VIT D3) 25 MCG TABLET (1,000 UNITS) 50 MCG PO (09:30)
--- NOTE | 2025-04-28 10:24 | CASEMGMT ---
Addendum entered by Zakia Valentine 04/28/25 14:52: [facility] has accepted. SOC will be within 24-48hrs of discharge. DC Instructions sent. Zakia Valentine DC Planning Asst. Addendum entered by Zakia Valentine 04/28/25 11:49: [facility] have declined d/t staffing. Awaiting response from [facility]. Zakia Valentine DC Planning Asst. Original Note: Discharge Planning HH referral sent to [facility], [facility]. Zakia Valentine DC Planning Asst.
[2025-04-28 11:22] VITALS: O2SAT 97
--- NOTE | 2025-04-28 13:51 | DCINST_ITS ---
Discharge Instructions DC O2, CPAP, BIPAP needs Home O2 Discharge instructions: No Dressing / Incision Discharge Activity: Return to Normal Activity Weight Bearing Status: Full weight bearing Follow Up Care Test Results: Test results from this visit will be discussed in further detail at your follow- up appointment, if applicable. Discharge Plan Admission Admit Date/Time: 04/26/25 13:29 Primary Reason for Your Visit: Generalized debility Attending Provider: Bryon Peters Primary Care Provider: Lester Jarvis Consulting Providers: Anuja Sanchez Discharge Orders/Prescriptions Prescriptions: Continued multivitamin [Daily Multi-Vitamin] Tablet 1 tab PO DAILY tamsulosin 0.4 mg capsule 0.4 mg PO BID docusate sodium 100 mg capsule 100 mg PO BID PRN (Reason: constipation) olanzapine 5 mg tablet 5 mg PO QHS omeprazole 40 mg capsule,delayed release(DR/EC) 40 mg PO QDAY zonisamide 50 mg capsule 50 mg PO BID sertraline 100 mg tablet 100 mg PO QDAY rosuvastatin 20 mg tablet 20 mg PO QDAY aspirin [Adult Low Dose Aspirin] 81 mg tablet,delayed release (DR/EC) 81 mg PO QDAY cholecalciferol (vitamin D3) 25 mcg (1,000 unit) tablet 50 mcg PO DAILY buspirone 15 mg tablet 15 mg PO TID ascorbic acid (vitamin C) 500 mg tablet 1,000 mg PO LUNCH acetaminophen 500 mg tablet 1,000 mg PO Q8H PRN PRN (Reason: Pain 1-10) Qty: 1 0RF ferrous sulfate 325 mg (65 mg iron) tablet 325 mg PO DAILY Qty: 30 0RF Rx Instructions: give this at noon daily with the ferrous sulfate. fenofibrate 54 mg tablet 108 mg PO DAILY amiodarone 200 mg tablet 100 mg PO BID finasteride 5 mg Tablet 5 mg PO QHS doxycycline hyclate 100 mg capsule 100 mg PO BID ondansetron HCl 4 mg tablet 2 mg PO Q8H PRN (Reason: nausea and vomiting) insulin glargine [Lantus Solostar U-100 Insulin] 100 unit/mL (3 mL) insulin pen 16 unit subcut QHS Eliquis 5 mg tablet 5 mg PO BID magnesium 250 mg tablet 250 mg PO DAILY polyethylene glycol 3350 [ClearLax] 17 gram/dose powder 17 g PO DAILY PRN (Reason: constipation) dextrose 40 % gel 10 g PO Q15M PRN (Reason: hypoglycemia) Rx Instructions: until symptoms of low blood sugar are controlled insulin lispro [Humalog KwikPen Insulin] 100 unit/mL Insulin Pen 6 unit subcut TIDAC Protocol: 4. Sliding Scale Insulin High-Med Dosing Condition: 150-199 mg/dl = 2 units Condition: 200-259 mg/dl = 4 units Condition: 260-324 mg/dl = 6 units Condition: 325-374 mg/dl = 8 units Condition: 375-409 mg/dl = 10 units Condition: 410-449 mg/dl = 11 units Condition: Greater than 449 call physician Protocol Text: - Use for Total Daily Dose of Insulin 56-80 units - Patient who are insulin resistant or septic HIGH MEDIUM DOSING ALGORITHM Discontinued torsemide 100 mg tablet 100 mg PO QDAY furosemide 40 mg tablet 40 mg PO DAILY Referrals / Follow Up: Lester Jarvis MD [Primary Care Provider] - Within 1 Month Disposition Disposition (needs filled in before D/C Order can be placed): Home Health Service
--- NOTE | 2025-04-28 13:54 | PCM.DC.SUM ---
Providers Date of Admission: 04/26/25 Date of Discharge: 04/28/25 Primary Care Physician: Dr. Lester Jarvis MD Consultations 04/26/25 14:44 Consult: Nephrology Routine Consulting Provider: Anuja Sanchez Reason for Consult: ESRD EMERGENT Consult: No MD Notified: Yes Date Notified: 04/26/25 Time Notified: 13:53 Method of Notification: Verbal Reason For Visit: DEBILITY Diagnosis Discharge Diagnosis (1) Fatigue: Status: Inactive Code(s): R53.83 - Other fatigue Plan 1. Generalized debility-secondary to multiple medical problems-notes from physical therapy today recommended the patient could go home with help, PT and OT will continue to see the patient #2 end-stage renal disease with vascular congestion-nephrology is following #3 paroxysmal atrial fibrillation-patient is not on rate control medication and chronic anticoagulation #4 essential hypertension-patient will remain on his present medications #5 chronic depression-patient will remain on his home medications #6 chronic left knee infection-patient is on doxycycline twice daily #7 type 2 diabetes-blood sugars will be monitored, sliding scale insulin will be administered as needed #8 chronic use of 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-patient remains on Eliquis due to his paroxysmal A-fib Patient is on antiseizure medication-he states his PCP placed him on it after his stroke, patient denies any seizure history Total clinical time spent by myself addressing patient's medical issues, reviewing all of his data, and collaborating with patient's care team: 35 minutes Medications at Discharge Home Medications multivitamin (Daily Multi-Vitamin tablet) 1 tab PO DAILY Supplement 02/12/22 tamsulosin 0.4 mg capsule 0.4 mg PO BID Urine retention 02/12/22 ascorbic acid (vitamin C) 500 mg tablet 1,000 mg PO LUNCH Supplement 02/28/23 acetaminophen 500 mg tablet 1,000 mg (2 x 500 mg) PO Q8H PRN PRN Pain 1-10 #1 TAB 03/15/23 ferrous sulfate 325 mg (65 mg iron) tablet 325 mg PO DAILY supplement #30 tabs 03/15/23 buspirone 15 mg tablet 15 mg PO TID Mood 11/22/23 docusate sodium 100 mg capsule 100 mg PO BID PRN constipation 11/22/23 olanzapine 5 mg tablet 5 mg PO QHS 11/22/23 omeprazole 40 mg capsule,delayed release 40 mg PO QDAY 11/22/23 sertraline 100 mg tablet 100 mg PO QDAY 11/22/23 zonisamide 50 mg capsule 50 mg PO BID 11/22/23 aspirin 81 mg tablet,delayed release (Adult Low Dose Aspirin) 81 mg PO QDAY 12/08/24 rosuvastatin 20 mg tablet 20 mg PO QDAY 12/08/24 cholecalciferol (vitamin D3) 25 mcg (1,000 unit) tablet 50 mcg PO DAILY 02/18/25 amiodarone 200 mg tablet 100 mg PO BID BP 03/26/25 fenofibrate 54 mg tablet 108 mg PO DAILY 03/26/25 finasteride 5 mg tablet 5 mg PO QHS 03/26/25 apixaban 5 mg tablet (Eliquis) 5 mg PO BID 04/26/25 dextrose 40 % oral gel 10 g PO Q15M PRN hypoglycemia 04/26/25 doxycycline hyclate 100 mg capsule 100 mg PO BID 04/26/25 insulin glargine 100 unit/mL (3 mL) subcutaneous pen (Lantus Solostar U-100 Insulin) 16 unit subcut QHS 04/26/25 insulin lispro 100 unit/mL subcutaneous pen (Humalog KwikPen (U-100) Insulin) 6 unit subcut TIDAC SLIDINING SCALE 04/26/25 magnesium 250 mg tablet 250 mg PO DAILY SUPPLEMENT 04/26/25 ondansetron HCl 4 mg tablet 2 mg PO Q8H PRN nausea and vomiting 04/26/25 polyethylene glycol 3350 17 gram/dose oral powder (ClearLax) 17 g PO DAILY PRN constipation 04/26/25 Hospital Course Operations None Procedures Dialysis Summary of Care Provided Minutes Spent on Discharge: 32 Hospital Course: 75-year-old white male presented to the emergency room [facility] with complaints of generalized weakness and intermittent shortness of breath on exertion, patient had multiple medical problems including end-stage renal disease, type 2 diabetes, cerebrovascular disease, and paroxysmal A-fib. Patient was having difficulty ambulating at home due to generalized weakness workup in the emergency room included labs which showed a low hemoglobin at 9.1, white blood cell count was normal, creatinine was elevated at 5.89 BUN was 48 troponin was minimally elevated not felt to be significant. Chest x-ray showed cardiac enlargement and interstitial edema, CT of the lumbar spine showed anterior wedge compressions, on talking with the patient and his , there was feeling that these were old because he was not complaining of significant back pain. Discussions were carried out with the , the felt unable to fully take care of the patient at home due to his generalized debility, he was placed in observation status on PCU and underwent dialysis and was seen by PT and OT. During his hospitalization, patient appeared to improve with his ADLs, discussions were carried out with the family and it was decided the patient would return home with home health. On 04/28/2025, patient was seen and examined: On examination he appeared in good health and spirits. Vital signs as documented. Skin warm and dry and without overt rashes. Neck without JVD, neck was supple, trachea midline, thyroid was normal. Lungs clear bilaterally, normal air movement was noted. Heart exam notable for regular rhythm, normal sounds and absence of murmurs, rubs or gallops. Abdomen unremarkable and without evidence of organomegaly, masses, or abdominal aortic enlargement. Bowel sounds are present, abdomen is not distended. Extremities nonedematous, no cyanosis was noted, no clubbing was noted. Neuro: Cranial nerves II through XII are grossly intact, no focal motor deficits were noted, sensation to light touch and pinprick intact, motor exam 5/5 throughout. Psych: Patient is alert and oriented x3, he does not appear anxious or depressed, he does not appear agitated. Patient appeared stable for discharge home on 04/28/2025 Weight / BMI Weight Weight: 110.8 kg Body Mass Index (BMI) 36.1 ABG / Lab / Microbiology Data 04/27/25 06:09 04/27/25 06:09 Laboratory: Laboratory Results - last 24 hr 04/27/25 16:17: POC Glucose 192 H 04/27/25 20:56: POC Glucose 167 H 04/28/25 06:51: POC Glucose 227 H 04/28/25 11:13: POC Glucose 192 H Microbiology: Microbiology 04/26/25 09:43 Mucosa - Nose SARS-CoV-2, Influenza & RSV (PCR) - Final D/C Instructions Weight Bearing Status: Full weight bearing DC O2, CPAP, BIPAP Needs Home O2 Discharge instructions: No Meaningful Use Info Meaningful Use Meaningful Use Diagnoses (Choose all that apply): None applicable Discharge Plan Admission Admit Date/Time: 04/26/25 13:29 Primary Reason for Your Visit: Generalized debility Attending Provider: Broyn Peters Primary Care Provider: Lester Jarvis Consulting Providers: Anuja Sanchez Discharge Orders/Prescriptions Prescriptions: Continued multivitamin [Daily Multi-Vitamin] Tablet 1 tab PO DAILY tamsulosin 0.4 mg capsule 0.4 mg PO BID docusate sodium 100 mg capsule 100 mg PO BID PRN (Reason: constipation) olanzapine 5 mg tablet 5 mg PO QHS omeprazole 40 mg capsule,delayed release(DR/EC) 40 mg PO QDAY zonisamide 50 mg capsule 50 mg PO BID sertraline 100 mg tablet 100 mg PO QDAY rosuvastatin 20 mg tablet 20 mg PO QDAY aspirin [Adult Low Dose Aspirin] 81 mg tablet,delayed release (DR/EC) 81 mg PO QDAY cholecalciferol (vitamin D3) 25 mcg (1,000 unit) tablet 50 mcg PO DAILY buspirone 15 mg tablet 15 mg PO TID ascorbic acid (vitamin C) 500 mg tablet 1,000 mg PO LUNCH acetaminophen 500 mg tablet 1,000 mg PO Q8H PRN PRN (Reason: Pain 1-10) Qty: 1 0RF ferrous sulfate 325 mg (65 mg iron) tablet 325 mg PO DAILY Qty: 30 0RF Rx Instructions: give this at noon daily with the ferrous sulfate. fenofibrate 54 mg tablet 108 mg PO DAILY amiodarone 200 mg tablet 100 mg PO BID finasteride 5 mg Tablet 5 mg PO QHS doxycycline hyclate 100 mg capsule 100 mg PO BID ondansetron HCl 4 mg tablet 2 mg PO Q8H PRN (Reason: nausea and vomiting) insulin glargine [Lantus Solostar U-100 Insulin] 100 unit/mL (3 mL) insulin pen 16 unit subcut QHS Eliquis 5 mg tablet 5 mg PO BID magnesium 250 mg tablet 250 mg PO DAILY polyethylene glycol 3350 [ClearLax] 17 gram/dose powder 17 g PO DAILY PRN (Reason: constipation) dextrose 40 % gel 10 g PO Q15M PRN (Reason: hypoglycemia) Rx Instructions: until symptoms of low blood sugar are controlled insulin lispro [Humalog KwikPen Insulin] 100 unit/mL Insulin Pen 6 unit subcut TIDAC Protocol: 4. Sliding Scale Insulin High-Med Dosing Condition: 150-199 mg/dl = 2 units Condition: 200-259 mg/dl = 4 units Condition: 260-324 mg/dl = 6 units Condition: 325-374 mg/dl = 8 units Condition: 375-409 mg/dl = 10 units Condition: 410-449 mg/dl = 11 units Condition: Greater than 449 call physician Protocol Text: - Use for Total Daily Dose of Insulin 56-80 units - Patient who are insulin resistant or septic HIGH MEDIUM DOSING ALGORITHM Discontinued torsemide 100 mg tablet 100 mg PO QDAY furosemide 40 mg tablet 40 mg PO DAILY Referrals / Follow Up: Lester Jarvis MD [Primary Care Provider] - 05/12/25 11:30 am (The appointment is with Christa KUO) Disposition Disposition (needs filled in before D/C Order can be placed): Home Health Service Charges/Coding Visit Charges Inpatient E&M: 21032 Disch Hosp >30min
[2025-04-28 14:21] VITALS: BP 98/69; PULSE 94; RESP 18; TEMP 36.4; O2SAT 100
== END 2025-04-28 14:36 | disposition home health service (06) ==
LOC: ED 13:02 → MS3 14:29
PROVIDERS: Admitting Provider Internal Medicine; Emergency Provider Student in an Organized Health Care Education/Training Program; PCP Family Medicine; Visit Provider Internal Medicine
DX: R29.6 Repeated falls (principal); N18.6 End stage renal disease; I12.0 Hypertensive chronic kidney disease with stage 5 chronic kidney disease or end stage renal disease; M01.X62 Direct infection of left knee in infectious and parasitic diseases classified elsewhere; I48.0 Paroxysmal atrial fibrillation; Z79.4 Long term (current) use of insulin; E11.22 Type 2 diabetes mellitus with diabetic chronic kidney disease; R53.81 Other malaise; N40.0 Benign prostatic hyperplasia without lower urinary tract symptoms; M48.00 Spinal stenosis, site unspecified; M51.369 Other intervertebral disc degeneration, lumbar region without mention of lumbar back pain or lower extremity pain; Z83.3 Family history of diabetes mellitus; Z99.2 Dependence on renal dialysis; K21.9 Gastro-esophageal reflux disease without esophagitis; Z79.82 Long term (current) use of aspirin; M25.552 Pain in left hip; D64.9 Anemia, unspecified; F32.A Depression, unspecified; E78.00 Pure hypercholesterolemia, unspecified; Z86.73 Personal history of transient ischemic attack (TIA), and cerebral infarction without residual deficits; I25.2 Old myocardial infarction; Z79.01 Long term (current) use of 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s
CPT/HCPCS: 36415; 71046; 72131; 73502; 80048; 82962; 83880; 84484; 85025; 87631; 90937; 93005; 96372; 97162; 97166; 97530; 97802; 99221; 99285; A4216; G0257; G0378

== ENCOUNTER → 2025-04-30 | Outpatient (CLI) | payer MEDICARE, MEDICAID, SELFPAY ==
--- NOTE | 2025-04-30 12:55 | AVDS_ITS ---
Reason For Study Reason For Study: Left Brachiocephalic AVF Left Velocities Left Brachiocephalic AVF Inflow, 230.7/120.9 cm/sec Inflow, 1863 ml/min Prox Anast, 764.8/415.9 cm/sec Prox Anast, 2327 ml/min Prox Graft, 408.9/200.6 cm/sec Prox Graft, 7379 ml/min Mid Graft, 91.9/51.3 cm/sec. Mid Graft, 1907 ml/min Dist Graft, 116.3/76.1 cm/sec Dist Graft, 1415 ml/min Outflow, 179.2/98.0 cm/sec Outflow, 1137 ml/min. Procedure Exam performed in department. VL/AV Fistula/Dialysis Graft Scan Interpretation Summary Patent left arm fistula with no stenosis, adequate flow volume and caliber. Ordering Physician: Machelle Baca Referring Physician: Machelle Baca Performed By: Pat Ramirez RVT
== END | disposition home or self-care (01) ==
LOC: CVS 12:44
PROVIDERS: PCP Family Medicine; Referring Provider Physician Assistant; Visit Provider Physician Assistant
DX: I77.0 Arteriovenous fistula, acquired (principal); N18.6 End stage renal disease
CPT/HCPCS: 93990

== ENCOUNTER 2025-06-01 16:34 | Inpatient (IN) | payer MEDICARE, MEDICAID, SELFPAY ==
[2025-06-01] VITALS (28 sets, daily range): BP systolic 70–102; BP diastolic 33–69; PULSE 73–86; RESP 11–21; TEMP 36.6; O2SAT 94–98; BMI 37.5
[2025-06-01 17:26] LABS: Hematocrit 30.5 % (40-54); Hemoglobin 10.2 g/dL (13.0-16.5); Immature Granulocytes Count 0.020 X10^3/uL (0.0-0.0); Mean Corp Hgb Conc 33.4 g/dL (32-36); Mean Corpuscular Volume 102.7 fL (80-94); Mean Platelet Vol. 11.2 fl (6.2-12.0); NRBC Flagged by Analyzer 0 % (0-5); Platelet Count 202 K/mm3 (150-450); RBC Distribution Width CV 15.7 % (11.6-14.6); RBC Distribution Width SD 60.3 fl (35.1-43.9); Red Blood Count 2.97 M/mm3 (4.6-6.2); White Blood Count 6.9 K/mm3 (4.4-11.0)
[2025-06-01] MEDS: 0.9% Normal Saline (500mL Bag) 500 ML 1000 ML IV (17:50)
[2025-06-01 18:36] LABS: AST(SGOT) 45 U/L (<=37); Alanine Aminotransfer ALT/SGPT 21 U/L (<=46); Albumin, Serum 2.8 g/dL (3.4-4.8); Alkaline Phosphatase 85 U/L (40-129); Anion Gap 18 (5-15); BUN 31 mg/dL (4-19); BUN/Creat Ratio 5.0 RATIO (10-20); Calcium,Total 8.7 mg/dL (7.6-11.0); Carbon Dioxide 25.6 mmol/L (21.0-32.0); Chloride 94 mmol/L (98-108); Estimated Creatinine Clearance 12.94 ml/min (50-250); Globulin 2.4 g/dL (2.2-4.2); Glucose 157 mg/dL (70-99); Potassium 2.5 mmol/L (3.3-5.1)
[2025-06-01] MEDS: Ampicillin/Sulbactam 3 GM in 0.9% Normal Saline (100mL MB+) 100 ML IV (19:21)
[2025-06-01] MEDS: Vancomycin HCl 2,000 MG in 0.9% Normal Saline (500mL Bag) 500 ML 250 MG IV (19:42)
--- NOTE | 2025-06-01 19:43 | PCM.HP.STD ---
[facility] - General General Date of Admission: 06/01/25 Date of Service: 06/01/25 Chief Complaint: Fever, Chills, Confusion and Hallucinations. HPI Narrative VIVI SAINI, is a 75 M wih a past medical history of essential hypertension; on torsemide, hyperlipidemia; on rosuvastatin plus fenofibrate, obesity (class II); with BMI of 37.6 this admission, WANDA, DM-2; of unknown control on insulin glargine 16U q. 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; on zonisamide BID with no history of tonic-clonic seizures, chronic combined systolic and diastolic CHF, history of nonischemic cardiomyopathy, chronic Left knee infection; on lifelong doxycycline BID, chronic LE lymphedema, JUSTINO; on ferrous sulfate, depression with anxiety; on sertraline, buspirone and olanzapine, BPH; on tamsulosin plus finasteride, GERD; on omeprazole, constipation; on polyethylene glycol daily prn, history of clostridium difficile infection (2023), OA; with history of bilateral TKR's with infection plus chronic low back pain s/p discectomy x 2 with spinal stimulator and recent admission here from April 26, 2025 to April 28, 2025 for treatment of general debility secondary to multiple medical problems who re-presents to [facility] ER complaining of fever, chills, confusion and hallucinations. Mr. Saini reports his symptoms began approximately one day prior to admission with subjective fever and chills followed by confusion and hallucinations. He also admits to headache that began in the top of his head and then moved to the front and back - but he denies neck stiffness or pain. He affirms he no longer makes any urine and his informed me she was not able to perform HD today because they had to come in for urgent treatment of his LLE infection. His went on to explain he had a similar episode in the past when he had to have surgery in his Right knee for worsening infection and she is worried he is now doing the same in his LLE in spite of taking his suppressive doxycycline. In the ER he was diagnosed with suspected LLE Cellulitis in the setting of previously known Chronic Left Knee Infection with laboratory evidence of Lactic Acidosis of 2.5 mmol/L present on admission suspicious for possible Sepsis complicated by Hypokalemia of 2.5 mmol/L present on admission in the setting of ESRD on HD () and he was then admitted to the PCU for treatment under the Sepsis protocol for a stay that is expected to extend beyond 2 midnights. [facility] Medical History Physical debility Arteriovenous fistula of left upper extremity ESRD (end stage renal disease) on dialysis Leg swelling Dyspnea on exertion Fatigue Shortness of breath CKD (chronic kidney disease) Bilateral leg edema Preoperative cardiovascular examination Osteopenia determined by x-ray Aftercare following explantation of knee joint prosthesis Infected prosthetic knee joint Chronic anticoagulation Urine retention USP current use of amiodarone WANDA (obstructive sleep apnea) Cognitive dysfunction Easy bruising Excessive bleeding Gastric reflux Non-smoker A-V fistula History of Clostridium difficile infection Wears dentures Depression Anxiety Insulin dependent diabetes mellitus Walker as ambulation aid Ambulates with cane Arthritis History of renal dialysis High cholesterol Restless legs Back pain Dietary restriction Shortness of breath on exertion Leg cramps History of pain when walking History of edema History of Holter monitoring History of stress test History of echocardiogram Cardiology follow-up encounter Atrial tachycardia History of CVA (cerebrovascular accident) Left-sided weakness Diabetes mellitus, type 2 Persistent atrial fibrillation BPH (benign prostatic hyperplasia) Depression Normochromic normocytic anemia Iron deficiency History of iron deficiency Cerebral artery occlusion with cerebral infarction Acute right MCA stroke Longstanding persistent atrial fibrillation Chronic combined systolic and diastolic CHF (congestive heart failure) 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 (LBBB) Acute on chronic combined systolic (congestive) and diastolic (congestive) heart failure (02/02/20) History of non-ST elevation myocardial infarction (NSTEMI) (02/02/20) Non-ischemic cardiomyopathy NSVT (nonsustained ventricular tachycardia) Obesity CVA (cerebral vascular accident) (12/2017) Secondary pulmonary arterial hypertension GERD (gastroesophageal reflux disease) Hyperlipidemia Essential (primary) hypertension CKD (chronic kidney disease), stage III Paroxysmal atrial fibrillation Anemia Chronic low back pain Osteoarthritis Home Medications ?Medication ?Instructions ?Recorded ?Last Taken ?Type multivitamin (Daily Multi-Vitamin 1 tab PO DAILY Supplement 02/12/22 04/25/25 History tablet) tamsulosin 0.4 mg capsule 0.4 mg PO BID Urine retention 02/12/22 04/25/25 History ascorbic acid (vitamin C) 500 mg 1,000 mg PO LUNCH Supplement 02/28/23 04/25/25 History tablet acetaminophen 500 mg tablet 1,000 mg (2 x 500 mg) PO Q8H PRN 03/15/23 04/04/25 Rx PRN Pain 1-10 #1 TAB ferrous sulfate 325 mg (65 mg 325 mg PO DAILY supplement #30 tabs 03/15/23 04/25/25 Rx iron) tablet buspirone 15 mg tablet 15 mg PO TID Mood 11/22/23 04/25/25 History docusate sodium 100 mg capsule 100 mg PO BID PRN constipation 11/22/23 Unknown History olanzapine 5 mg tablet 5 mg PO QHS 11/22/23 04/25/25 History omeprazole 40 mg capsule,delayed 40 mg PO QDAY 11/22/23 04/25/25 History release sertraline 100 mg tablet 100 mg PO QDAY 11/22/23 04/25/25 History zonisamide 50 mg capsule 50 mg PO BID 11/22/23 04/25/25 History aspirin 81 mg tablet,delayed 81 mg PO QDAY Cardiac 12/08/24 04/25/25 History release (Adult Low Dose Aspirin) rosuvastatin 20 mg tablet 20 mg PO QDAY 12/08/24 04/25/25 History cholecalciferol (vitamin D3) 25 50 mcg PO DAILY vitamin supplement 02/18/25 04/25/25 History mcg (1,000 unit) tablet amiodarone 200 mg tablet 100 mg PO BID BP 03/26/25 04/25/25 History fenofibrate 54 mg tablet 108 mg PO DAILY 03/26/25 04/25/25 History finasteride 5 mg tablet 5 mg PO QHS 03/26/25 04/25/25 History apixaban 5 mg tablet (Eliquis) 5 mg PO BID 04/26/25 04/25/25 History dextrose 40 % oral gel 10 g PO Q15M PRN hypoglycemia 04/26/25 Unknown History doxycycline hyclate 100 mg capsule 100 mg PO BID 04/26/25 04/25/25 History insulin glargine 100 unit/mL (3 16 unit subcut QHS Diabetes 04/26/25 04/25/25 History mL) subcutaneous pen (Lantus Solostar U-100 Insulin) insulin lispro 100 unit/mL 15 unit subcut TIDAC SLIDINING 04/26/25 04/25/25 History subcutaneous pen (Humalog KwikPen SCALE (U-100) Insulin) magnesium 250 mg tablet 250 mg PO DAILY SUPPLEMENT 04/26/25 04/25/25 History ondansetron HCl 4 mg tablet 2 mg PO Q8H nausea and vomiting 04/26/25 04/25/25 History polyethylene glycol 3350 17 17 g PO DAILY PRN constipation 04/26/25 Unknown History gram/dose oral powder (ClearLax) torsemide 5 mg tablet 5 mg PO DAILY 06/01/25 Unknown History Allergy/AdvReac Type Severity Reaction Status Date / Time rofecoxib Allergy Severe Swelling Verified 06/01/25 16:40 Family History Mother Heart disease Sister Heart disease Myocardial infarction CVA (cerebral vascular accident) Diabetes Brother CVA (cerebral vascular accident) Other Persistent atrial fibrillation Surgical History History of insertion of nerve stimulator History of surgery Hx of colonoscopy Hx of lumbar discectomy Hx of total knee arthroplasty History of knee replacement, total Social History household members: spouse Smoking Status: Never smoker alcohol intake: current alcohol intake frequency: holidays/special occasions only Alcohol type: beer substance use type: does not use caffeine: Yes Type: coffee Number of servings: 2 ROS ROS Narrative Review of Systems: Constitutional: Patient admits to subjective fever and chills. Eyes: Patient denies changes in vision or discharge from eyes. ENT: Patient denies runny nose, sore throat or ear pain. Resp: Patient denies SOB, cough or wheezing. CV: Patient denies chest pain, palpitations, heart racing or LE edema. GI: Patient denies abdominal pain, nausea, vomiting, diarrhea or constipation. : Patient denies dysuria or hematuria. MSK: Patient has increased LLE edema and erythema but he denies arthralgias or myalgias. Skin: Patient denies rash, abscess, wounds or jaundice. Psych: Patient admits to confusion and hallucinations as per HPI. Neuro: Patient admits to headache as per HPI but he denies paresthesias or new focal neurologic weakness. Allergy: Patient denies lip swelling, tongue swelling or urticaria. Hematology: Patient admits to easy bleeding and easy bruisability on apixaban. Endocrinology: Patient denies polyuria, polydipsia, polyphagia or heat/cold intolerance. 14 point ROS otherwise negative except for positives noted above in HPI. Vital Signs Vital Signs Vital Signs: 06/01/25 16:37 06/01/25 17:15 06/01/25 17:30 Temperature 97.8 F 97.8 F Temperature Source Oral Oral Pulse Rate 81 82 73 Respiratory Rate 20 H 14 13 Blood Pressure 102/65 88/52 L 93/58 L Blood Pressure Mean 77 64 68 Pulse Ox 98 97 98 Oxygen Delivery Method Room Air Room Air 06/01/25 17:45 06/01/25 18:00 06/01/25 18:30 Temperature Temperature Source Pulse Rate 80 75 83 Respiratory Rate 11 L 18 18 Blood Pressure 88/64 L 99/54 L 101/69 Blood Pressure Mean 73 69 80 Pulse Ox 96 98 98 Oxygen Delivery Method 06/01/25 18:45 06/01/25 19:22 Temperature 97.9 F Temperature Source Oral Pulse Rate 83 79 Respiratory Rate 15 16 Blood Pressure 88/53 L 81/51 L Blood Pressure Mean 62 61 Pulse Ox 98 96 Oxygen Delivery Method Room Air Weight Weight: 254 lb 6.615 oz Body Mass Index (BMI) 37.5 Physical Exam Const alert, oriented x3, no apparent distress and average body habitus General Appearance: cooperative HEENT normocephalic, head/scalp atraumatic, hearing grossly normal bilaterally and moist oral mucous membranes Eyes PERRL, EOMs intact bilaterally and conjunctivae normal Neck no lymphadenopathy, supple and no JVD Resp normal respiratory effort, no retractions, no use of accessory muscles and clear to auscultation bilaterally Cardio Cardio Narrative: Irregularly irregular. GI normal to inspection, nondistended, normoactive bowel sounds, soft to palpation, non-tender and non-distended Extremity Extremity Narrative: Increased edema and erythema of the LLE. Skin Skin Narrative: Increased edema and erythema of the LLE. No rash noted. Neuro oriented x3, CN's II-XII intact bilaterally, moves all extremities and no focal motor deficits Sensorium / Orientation: awake, alert, oriented to person, oriented to place and oriented to time Speech: speech normal Psych affect normal Results Medical Records Data Attestation: I reviewed the patient's medical records Lab / Micro Data Attestation: I reviewed the patient's lab results. 06/01/25 16:55 06/01/25 16:55 Labs: Laboratory Results - last 24 hr 06/01/25 16:55: WBC 6.9, RBC 2.97 L, Hgb 10.2 L, Hct 30.5 L, MCV 102.7 H, MCH 34.3 H, MCHC 33.4, RDW Std Deviation 60.3 H, RDW Coeff of Whitney 15.7 H, Plt Count 202, MPV 11.2, Immature Gran % (Auto) 0.300, Neut % (Auto) 72.0 H, Lymph % (Auto) 10.9 L, [place] % (Auto) 12.0 H, Eos % (Auto) 4.2, Baso % (Auto) 0.6, Absolute Neuts (auto) 5.0, Absolute Lymphs (auto) 0.75 L, Nucleated RBC % 0, Sodium 137, Potassium 2.5 L*, Chloride 94 L, Carbon Dioxide 25.6, Anion Gap 18 H, BUN 31 H, Creatinine 6.18 H, Estim Creat Clear Calc 12.94 L, Est GFR (MDRD) Non-Af 9 L, BUN/Creatinine Ratio 5.0 L, Glucose 157 H, Lactic Acid 2.5 H*, Calcium 8.7, Total Bilirubin 0.44, AST 45 H, ALT 21, Alkaline Phosphatase 85, Total Protein 5.2 L, Albumin 2.8 L, Globulin 2.4, Albumin/Globulin Ratio 1.2 Imaging [facility] Imaging Services [address] [place] [address] Extremity Lower WITH Contrast MR#: [id number] Acct: [id number] Name: VIVI SAINI Rep #: [id number] : 1950 M 75 From: Thom Yoder MD PCP: Dr. Lester Jarvis MD Status: ADM IN Study: Extremity Lower WITH Contrast Date of Exam: 06/01/25 Exam# [id number] Ordering Dr: Raymundo Carmona MD PROCEDURE: CT EXTREMITY LOWER WITH CONTRAST - LEFT 06/01/2025 REASON FOR EXAM: RECURRENT INFECTIONS TECHNIQUE: Procedure Code: CTELW Modality: CT Procedure: EXTREMITY LOWER WITH CONTRAST Coronal and Sagittal reconstruction series were provided. CONTRAST: Isovue 370 VOLUME: 96 mL One or more dose reduction techniques were used (e.g., Automated exposure control, adjustment of the mA and/or kV according to patient size, use of iterative reconstruction technique). RADIATION DOSE SUMMARY: CTDlvol: 15.43 mGy DLP: 919.88 mGycm COMPARISON: None. FINDINGS: No acute fracture or dislocation. Status post total left knee arthroplasty with intact hardware. No aggressive osseous erosion/destruction or periosteal reaction appreciated. Mild generalized subcutaneous fat stranding/edema in the left lower extremity, with areas of skin thickening which may reflect cellulitic changes. No drainable fluid collection/abscess, or subcutaneous emphysema. Advanced peripheral atherosclerotic vascular disease. CT/Extremity Lower WITH Contrast IMPRESSION: No acute or aggressive osseous abnormality. Generalized lower extremity subcutaneous edema and cellulitic changes. No drainable fluid collection/abscess. Reading Location: [facility] CC: Dr. Lester Jarvis MD; Dr. Raymundo Carmona MD ~ Internal Medicine Physician Assistant: Signed Assessment & Plan Assessment/Plan (1) Cellulitis: QUALIFIERS: Laterality: left Site of cellulitis: extremity Site of cellulitis of extremity: lower extremity Qualified Code(s): L03.116 - Cellulitis of left lower limb (2) Sepsis: QUALIFIERS: Sepsis acute organ dysfunction status: without acute organ dysfunction Sepsis type: sepsis due to unspecified organism Qualified Code(s): A41.9 - Sepsis, unspecified organism (3) Lactic acidosis: (4) Subjective fever: (5) Chills: (6) Hallucinations: (7) Physical debility: (8) Hypokalemia: PLAN: Plan 1. LLE Cellulitis in the setting of previously known Chronic Left Knee Infection and Chronic LE Lymphedema with laboratory evidence of Lactic Acidosis of 2.5 mmol/L present on admission suspicious for possible Sepsis with subjective Fever, Chills and Hallucinations - Admit tp PCU for treatment under the Sepsis protocol. Continue IV vancomycin begun in the ER plus add piperacillin-tazobactam and await culture & sensitivity data. Give acetaminophen prn for [id number]-[id number] (level 1-5/10) pain or fever. Give morphine IV prn for severe (level 6-10/10) pain. We will check CT scan of the LLE and give IV albumin to support MAP > 65 mmHg as he cannot receive the standard Sepsis fluid bolus due to being anuric with ESRD. Finally, we will consult Dr. Young of infectious disease to see this patient on-rounds in the AM for further recommendations with help appreciated in advance. 2. Hypokalemia of 2.5 mmol/L present on admission in the setting of ESRD on HD (T--Sat) complicating #1 - Give supplemental KCl and then recheck level in AM to confirm improvement. We will limit fluid bolus to prevent volume overload with ESRD on HD. Finally, we will consult nephrology to see this patient on-rounds in the AM for further recommendations with help appreciated in advance. 3. PAF; on amiodarone BID and apixaban BID plus BASA daily compounding #1 & #2 - Maintain current treatment. 4. Obesity (class II); with BMI of 37.6 this admission plus WANDA adding to the burden of disease outlined from #1 - #3 - Weight loss will be recommended. Check TSH. This complicates his case and may hamper recovery. 5. Recent admission here from April 26, 2025 to April 28, 2025 for treatment of general debility secondary to multiple medical problems adding to the medical complexity of #1 - #4 - Noted. 6. History of TIA/CVA (2018/with Right MCA CVA s/p thrombectomy at [facility] 11/2021); with Left-sided weakness - Stable. 7. Suspected seizure disorder after CVA; on zonisamide BID with no history of tonic-clonic seizures - Continue zonisamide as previous. 8. DM-2; of unknown control on insulin glargine 16U q. HS plus insulin lispro 6U sq AC - Cut insulin doses by ~30% to minimize risk of iatrogenic hypoglycemia. ADA diet. FSBS q. AC/HS plus SSI. 9. History of CAD; s/p NSTEMI (2019) - Noted. 10. Depression with anxiety; on sertraline, buspirone and olanzapine - Continue current therapy. 10. Essential hypertension and chronic combined systolic and diastolic CHF (2019); on torsemide - Hold loop diuretic in light of #1. 11. Hyperlipidemia; on rosuvastatin plus fenofibrate - Maintain present treatment and check Lipid Profile. 12. History of nonischemic cardiomyopathy - Noted. 13. JUSTINO; on ferrous sulfate - Stable with hemoglobin of 10.2 g/dL and MCV of 102.7 fL present on admission. Check B12 and Folate levels with macrocytosis. 14. BPH; on tamsulosin plus finasteride - Maintain current regimen. 15. GERD; on omeprazole - Resume PPI. 16. Constipation; on polyethylene glycol daily prn - Continue prn polyethylene glycol. 17. History of clostridium difficile infection (2023) - We will watch closely for signs of diarrhea. 18. OA; with history of bilateral TKR's with infection plus chronic low back pain s/p discectomy x 2 with spinal stimulator - Continue acetaminophen prn as outlined in #1. 19. DVT prophylaxis - Patient already on apixaban for #3 which will be continued. Total time: Approximately (but not less than) 75 minutes. Sepsis Attestation Sepsis Alert: Yes Sepsis Attestation: Agree w/Sepsis Date exam was performed: 06/01/25 Time exam was performed: 20:30 Possible Source of Sepsis: Skin/soft tissue Sepsis Organ Dysfunction Criteria Present: SBP < 90 mmHg or MAP < 65 mmHg, Creatinine > 2.0 mg/dL, Lactic Acid > 2 mmol/L and New/Unexplained change in mental status Fluid Resuscitation Fluid resuscitation indicated?: Yes Fluid Resuscitation ordered: Lesser volume fluid bolus ordered Amount of fluid ordered: 1 Reason for lesser fluid bolus:: Concern for fluid overload (Patient has ESRD on HD with anuria.) Sepsis Note Date exam was performed: 06/02/25 Time exam was performed: 00:30 Sepsis Attestation: Sepsis re-evaluation was performed Response to fluids: Non Fluid responsive hypotension and Vasopressors started Charges/Coding Visit Charges Inpatient E&M: 94215 Init Hosp L3
--- NOTE | 2025-06-01 21:03 | EKG12_ITS ---
Test Reason : chest pain Blood Pressure : */* mmHG Vent. Rate : 82 BPM Atrial Rate : 82 BPM P-R Int : 112 ms QRS Dur : 152 ms QT Int : 482 ms P-R-T Axes : 52 -30 78 degrees QTcB Int : 563 ms Accelerated Junctional rhythm Left axis deviation Right bundle branch block Possible Anterolateral infarct Abnormal ECG Confirmed by Adalid Rolon ([id number]), editor in chief newspaper JHONATAN CRANDALL ([id number]) on 06/03/2025 5:58:45 AM Referred By: Confirmed By: Adalid Rolon
--- NOTE | 2025-06-01 21:04 | CT_ITS ---
PROCEDURE: CT EXTREMITY LOWER WITH CONTRAST - LEFT 06/01/2025 REASON FOR EXAM: RECURRENT INFECTIONS TECHNIQUE: Procedure Code: CTELW Modality: CT Procedure: EXTREMITY LOWER WITH CONTRAST Coronal and Sagittal reconstruction series were provided. CONTRAST: Isovue 370 VOLUME: 96 mL One or more dose reduction techniques were used (e.g., Automated exposure control, adjustment of the mA and/or kV according to patient size, use of iterative reconstruction technique). RADIATION DOSE SUMMARY: CTDlvol: 15.43 mGy DLP: 919.88 mGycm COMPARISON: None. FINDINGS: No acute fracture or dislocation. Status post total left knee arthroplasty with intact hardware. No aggressive osseous erosion/destruction or periosteal reaction appreciated. Mild generalized subcutaneous fat stranding/edema in the left lower extremity, with areas of skin thickening which may reflect cellulitic changes. No drainable fluid collection/abscess, or subcutaneous emphysema. Advanced peripheral atherosclerotic vascular disease. CT/Extremity Lower WITH Contrast IMPRESSION: No acute or aggressive osseous abnormality. Generalized lower extremity subcut aneous edema and cellulitic changes. No drainable fluid collection/abscess. Reading Location: [id number]
--- NOTE | 2025-06-01 21:15 | CASEMGMT ---
Care Management Face to Face with patient for initial transition planning/care coordination assessment in the ED. This editorial writer introduced self and role at [facility]. Patient alert and oriented. Patient willing to participate in assessment and is able to answer all questions appropriately. Patient's , Magaly, bedside. Care providers, pharmacy, and demographics verified. Admitting Diagnosis: Cellulitis, Sepsis, Lactic acidosis Other diagnosis history: essential hypertension, hyperlipidemia, WANDA, DM-2, ESRD, TIA/CVA, suspected seizure disorder after CVA, CHF, etc. PCP: Matheus Specialists: Wes, cardiology. Laura, nephrology. Preferred Pharmacy: [facility] Retail Insurance: [facility] Medicare Dual complete (primary). [facility] Community Plan (secondary). Prescription Benefit: yes Living Will/HPOA: , Magaly (primary). sonAdalid (secondary). son, Bryon (tertiary). LNOK: and sons. Living Arrangements: lives with in a mobile home with 4 steps to enter. Railing and a life on outside. Needs assistance with ADLs, patient's provides help with IADLs as well. Transportation: patient's and Tulio provide transportation. DME: walk in shower with grab bars, rollator, shower chair, walker, CGM with sufficient supply of sensors, cane, wheelchair, insulin with sufficient supply as well as needles. HHC: [facility] as of 04/28/25 SNF/Rehab: [facility] and [facility] Community Resources: [facility] for dialysis Patient goals: Patient wishes to discharge home and desires for HHC to continue. Patient denies any further needs or concerns at this time. Disposition Plan: admission to acute; RN CM/SW to follow for discharge planning needs that may arise. Dawn Villavicencio, FINANCIAL ANALYST INTERN, [employer] REGISTERED NURSE
[2025-06-01 21:17] LABS: Reflex Lactate? Y
[2025-06-01 21:38] LABS: CRP 24.10 mg/L (0.0-3.0)
[2025-06-01 21:39] LABS: Alcohol, Blood (Medical)-Serum < 10.1 mg/dL (<=10.0)
[2025-06-01] MEDS: Albumin Human 25% (100 mL) 25 GM/100 ML BAG IV (21:44)
[2025-06-01 21:55] LABS: FOLATES,SERUM (FOLIC ACID) 11.50 ng/mL (4.60-34.80)
--- NOTE | 2025-06-01 22:05 | ED.RN ---
Per Dr. Carmona only 500ml given since patient is diaylsis.
[2025-06-01] MEDS: Norepinephrine Bit/0.9% NaCl 8 MG/250 ML IV.SOLN 9.4 MG CONT INF (23:37)
--- NOTE | 2025-06-01 23:37 | EX.ED.DYSGE1 ---
HPI History of Present Illness Chief Complaint: Confusion Detail of Chief Complaint: Subjective fever and chills yesterday, confusion today Informant: patient and spouse/S.O. Onset/Context/Timing Onset: Weeks (Redness of his leg has been present for some time.) Context: Gradual Onset Timing: Continuous Quality: We have been drainage left leg with erythema Location: Left leg Current Severity: Moderate Maximum Severity: Moderate Worsened by: Probably due to PAD and diabetes Relieved by: Nothing Associated Symptoms Associated Symptoms: Difficulty controlling his blood sugar, visual hallucinations this morning Narrative Narrative: Patient is 75-year-old male. He has history of sepsis, osteomyelitis, type 2 diabetes on insulin, coronary disease status post bypass surgery, multiple stents and valve replacement, BPH, iron deficiency anemia, right MCA stroke, chronic atrial fibrillation, hyperlipidemia. He has end-stage renal disease on home dialysis. He was dialyzed this morning by his . He had drop in his pressure this morning during dialysis. When there was a drop in pressure he experienced the visual hallucinations. Prior similar symptoms: Yes Recent Illness/Hospitalization: Yes (Osteomyelitis right leg) [facility] Medical History Physical debility Arteriovenous fistula of left upper extremity ESRD (end stage renal disease) on dialysis Leg swelling Dyspnea on exertion Fatigue Shortness of breath CKD (chronic kidney disease) Bilateral leg edema Preoperative cardiovascular examination Osteopenia determined by x-ray Aftercare following explantation of knee joint prosthesis Infected prosthetic knee joint Chronic anticoagulation Urine retention snf current use of amiodarone WANDA (obstructive sleep apnea) Cognitive dysfunction Easy bruising Excessive bleeding Gastric reflux Non-smoker A-V fistula History of Clostridium difficile infection Wears dentures Depression Anxiety Insulin dependent diabetes mellitus Walker as ambulation aid Ambulates with cane Arthritis History of renal dialysis High cholesterol Restless legs Back pain Dietary restriction Shortness of breath on exertion Leg cramps History of pain when walking History of edema History of Holter monitoring History of stress test History of echocardiogram Cardiology follow-up encounter Atrial tachycardia History of CVA (cerebrovascular accident) Left-sided weakness Diabetes mellitus, type 2 Persistent atrial fibrillation BPH (benign prostatic hyperplasia) Depression Normochromic normocytic anemia Iron deficiency History of iron deficiency Cerebral artery occlusion with cerebral infarction Acute right MCA stroke Longstanding persistent atrial fibrillation Chronic combined systolic and diastolic CHF (congestive heart failure) 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 (LBBB) Acute on chronic combined systolic (congestive) and diastolic (congestive) heart failure (02/02/20) History of non-ST elevation myocardial infarction (NSTEMI) (02/02/20) Non-ischemic cardiomyopathy NSVT (nonsustained ventricular tachycardia) Obesity CVA (cerebral vascular accident) (12/2017) Secondary pulmonary arterial hypertension GERD (gastroesophageal reflux disease) Hyperlipidemia Essential (primary) hypertension CKD (chronic kidney disease), stage III Paroxysmal atrial fibrillation Anemia Chronic low back pain Osteoarthritis Home Medications ?Medication ?Instructions ?Recorded ?Last Taken ?Type multivitamin (Daily Multi-Vitamin 1 tab PO DAILY Supplement 02/12/22 04/25/25 History tablet) tamsulosin 0.4 mg capsule 0.4 mg PO BID Urine retention 02/12/22 04/25/25 History ascorbic acid (vitamin C) 500 mg 1,000 mg PO LUNCH Supplement 02/28/23 04/25/25 History tablet acetaminophen 500 mg tablet 1,000 mg (2 x 500 mg) PO Q8H PRN 03/15/23 04/04/25 Rx PRN Pain 1-10 #1 TAB ferrous sulfate 325 mg (65 mg 325 mg PO DAILY supplement #30 tabs 03/15/23 04/25/25 Rx iron) tablet buspirone 15 mg tablet 15 mg PO TID Mood 11/22/23 04/25/25 History docusate sodium 100 mg capsule 100 mg PO BID PRN constipation 11/22/23 Unknown History olanzapine 5 mg tablet 5 mg PO QHS 11/22/23 04/25/25 History omeprazole 40 mg capsule,delayed 40 mg PO QDAY 11/22/23 04/25/25 History release sertraline 100 mg tablet 100 mg PO QDAY 11/22/23 04/25/25 History zonisamide 50 mg capsule 50 mg PO BID 11/22/23 04/25/25 History aspirin 81 mg tablet,delayed 81 mg PO QDAY Cardiac 12/08/24 04/25/25 History release (Adult Low Dose Aspirin) rosuvastatin 20 mg tablet 20 mg PO QDAY 12/08/24 04/25/25 History cholecalciferol (vitamin D3) 25 50 mcg PO DAILY vitamin supplement 02/18/25 04/25/25 History mcg (1,000 unit) tablet amiodarone 200 mg tablet 100 mg PO BID BP 03/26/25 04/25/25 History fenofibrate 54 mg tablet 108 mg PO DAILY 03/26/25 04/25/25 History finasteride 5 mg tablet 5 mg PO QHS 03/26/25 04/25/25 History apixaban 5 mg tablet (Eliquis) 5 mg PO BID 04/26/25 04/25/25 History dextrose 40 % oral gel 10 g PO Q15M PRN hypoglycemia 04/26/25 Unknown History doxycycline hyclate 100 mg capsule 100 mg PO BID 04/26/25 04/25/25 History insulin glargine 100 unit/mL (3 16 unit subcut QHS Diabetes 04/26/25 04/25/25 History mL) subcutaneous pen (Lantus Solostar U-100 Insulin) insulin lispro 100 unit/mL 15 unit subcut TIDAC SLIDINING 04/26/25 04/25/25 History subcutaneous pen (Humalog KwikPen SCALE (U-100) Insulin) magnesium 250 mg tablet 250 mg PO DAILY SUPPLEMENT 04/26/25 04/25/25 History ondansetron HCl 4 mg tablet 2 mg PO Q8H nausea and vomiting 04/26/25 04/25/25 History polyethylene glycol 3350 17 17 g PO DAILY PRN constipation 04/26/25 Unknown History gram/dose oral powder (ClearLax) torsemide 5 mg tablet 5 mg PO DAILY 06/01/25 Unknown History Allergy/AdvReac Type Severity Reaction Status Date / Time rofecoxib Allergy Severe Swelling Verified 06/01/25 16:40 Family History Mother Heart disease Sister Heart disease Myocardial infarction CVA (cerebral vascular accident) Diabetes Brother CVA (cerebral vascular accident) Other Persistent atrial fibrillation Surgical History History of insertion of nerve stimulator History of surgery Hx of colonoscopy Hx of lumbar discectomy Hx of total knee arthroplasty History of knee replacement, total Social History household members: spouse Smoking Status: Never smoker alcohol intake: current alcohol intake frequency: holidays/special occasions only Alcohol type: beer substance use type: does not use caffeine: Yes Type: coffee Number of servings: 2 ROS ROS ED Constitutional Constitutional ED: Reports chills, fever(s) and subjective; Denies sweats Eyes Eyes: Denies blurry vision, change in vision or diplopia ENT ENT ED: Denies ear pain, rhinorrhea or sore throat Cardiovascular Cardiovascular: Denies chest pain, orthopnea or palpitations Respiratory/Chest Respiratory/Chest: Denies cough, dyspnea, dyspnea on exertion or orthopnea Gastrointestinal Gastrointestinal: Denies abdominal pain, diarrhea or vomiting Genitourinary Genitourinary ED: Reports other Details: Patient does not make any urine. Musculoskeletal Musculoskeletal: Reports other Details: Left leg pain. Integumentary Reports rash and other Details: Bilateral venous stasis dermatitis and cellulitis left leg only. Neurologic Neurologic: Reports weakness Psychiatric Psychiatric: Reports depression; Denies anxiety Hematologic/Lymphatic Hematologic/Lymphatic: Reports systems reviewed and no addt'l complaints, except as documented and easy bruising EXAM Physical Exam Const Vital Signs: 06/01/25 16:37 06/01/25 17:15 06/01/25 17:30 Temperature 97.8 F 97.8 F Temperature Source Oral Oral Pulse Rate 81 82 73 Respiratory Rate 20 H 14 13 Blood Pressure 102/65 88/52 L 93/58 L Blood Pressure Mean 77 64 68 Pulse Ox 98 97 98 Oxygen Delivery Method Room Air Room Air 06/01/25 17:45 06/01/25 18:00 06/01/25 18:30 Temperature Temperature Source Pulse Rate 80 75 83 Respiratory Rate 11 L 18 18 Blood Pressure 88/64 L 99/54 L 101/69 Blood Pressure Mean 73 69 80 Pulse Ox 96 98 98 Oxygen Delivery Method 06/01/25 18:45 06/01/25 19:00 06/01/25 19:15 Temperature Temperature Source Pulse Rate 83 82 79 Respiratory Rate 15 21 H 14 Blood Pressure 88/53 L 95/55 L 81/51 L Blood Pressure Mean 62 67 62 Pulse Ox 98 98 97 Oxygen Delivery Method 06/01/25 19:22 06/01/25 19:24 06/01/25 19:30 Temperature 97.9 F Temperature Source Oral Pulse Rate 79 82 Respiratory Rate 16 16 Blood Pressure 81/51 L 72/33 L 84/42 L Blood Pressure Mean 61 47 55 Pulse Ox 96 94 Oxygen Delivery Method Room Air 06/01/25 19:45 06/01/25 19:58 06/01/25 20:00 Temperature 97.9 F Temperature Source Pulse Rate 84 83 Respiratory Rate 16 17 Blood Pressure 87/49 L 87/49 L 83/58 L Blood Pressure Mean 63 61 67 Pulse Ox 96 97 Oxygen Delivery Method 06/01/25 20:15 Temperature Temperature Source Pulse Rate 84 Respiratory Rate 17 Blood Pressure 89/55 L Blood Pressure Mean 64 Pulse Ox 97 Oxygen Delivery Method Positive well nourished and well developed General Appearance ED: well developed and NAD; Negative for cyanotic or diaphoretic HEENT Reports moist mucous membranes HEENT Narrative: Head is atraumatic and normocephalic. Ears normal. Nares patent. Eyes PERRL and EOMs intact bilaterally General Eye ED: Negative for pale conjunctiva or scleral icterus Neck no lymphadenopathy, supple and no JVD Chest Wall inspection of chest normal and palpation of chest normal Resp normal respiratory effort and clear to auscultation bilaterally Cardio regular rate, S1 normal heart sound, S2 normal heart sound and no murmurs Rhythm: abnormal rhythm irregularly irregular GI normal to inspection, nondistended, normoactive bowel sounds, non-tender, non-distended and no masses; Negative for hepatosplenomegaly Auscultation: normoactive bowel sounds Extremity Negative for normal to inspection Extremity Narrative: Pitting edema her upper and lower extremity. General Extremety ED: Yes edema and tenderness; Negative for other findings General Extremity: edema; Negative for other findings Neuro oriented x3 and CN's II-XII intact bilaterally Neuro Narrative: Awake but not alert. Skin No no rashes or lesions noted Skin Narrative: Cellulitis left leg. Sepsis Attestation Sepsis Alert: Yes Sepsis Attestation: Agree w/Sepsis Date exam was performed: 06/01/25 Time exam was performed: 19:00 Possible Source of Sepsis: Skin/soft tissue Sepsis Organ Dysfunction Criteria Present: SBP < 90 mmHg or MAP < 65 mmHg, Lactic Acid > 2 mmol/L and New/Unexplained change in mental status Fluid Resuscitation Fluid resuscitation indicated?: Yes Amount of fluid ordered: 500 Reason for lesser fluid bolus:: Concern for fluid overload and Renal Failure Sepsis Note Date exam was performed: 06/01/25 Time exam was performed: 23:47 Sepsis Attestation: Sepsis re-evaluation was performed Response to fluids: Non Fluid responsive hypotension and Vasopressors started (Since patient is on 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 and has a good peripheral Angiocath started on peripheral Levophed.) MDM MDM MDM Narrative Medical decision making narrative: Patient was cellulitis. Concern he may have osteomyelitis in light of pain and prior history of osteomyelitis involving the right leg. Sepsis workup was initiated. His case is complicated due to the fact that he is on doxycycline 100 mg twice daily. He has been on doxycycline since 2021. He is on chronic doxycycline because he had recurrent prosthetic joint infections. Patient was started on Unasyn and vancomycin. Patient did receive a fluid bolus. He did not respond. He was then given albumin by Dr. Park. Patient did not respond. In light of this started on peripheral Levophed. Patient is presently fluid overloaded and concerned giving him more fluid would cause complications i.e. respiratory distress/failure especially since he does not make any urine. History & Record Review Discussion w/independent historian: Patient and Significant other Additional record(s) reviewed:: Prior inpatient record, Prior outpatient record (Notes by Dr. Munguia for PAD.), Prior ED visit and Prior labs Lab Data Attestation: I reviewed the patient's lab results. Lab results narrative: White count is normal. He is anemic with macrocytic indices. Potassium is low at 2.5. Patient CO2 is normal at 25.6 with an elevated anion gap. BUN and creatinine are 31 and 6.18. Hemoglobin A1c is 9.3. Lactate was 2.5. TSH was 4.47. Labs: Laboratory Results - last 24 hr 06/01/25 16:55 WBC 6.9 RBC 2.97 L Hgb 10.2 L Hct 30.5 L MCV 102.7 H MCH 34.3 H MCHC 33.4 RDW Std Deviation 60.3 H RDW Coeff of Whitney 15.7 H Plt Count 202 MPV 11.2 Immature Gran % (Auto) 0.300 Neut % (Auto) 72.0 H Lymph % (Auto) 10.9 L [place] % (Auto) 12.0 H Eos % (Auto) 4.2 Baso % (Auto) 0.6 Absolute Neuts (auto) 5.0 Absolute Lymphs (auto) 0.75 L Nucleated RBC % 0 ESR 21 H Sodium 137 Potassium 2.5 L* Chloride 94 L Carbon Dioxide 25.6 Anion Gap 18 H BUN 31 H Creatinine 6.18 H Estim Creat Clear Calc 12.94 L Est GFR (MDRD) Non-Af 9 L BUN/Creatinine Ratio 5.0 L Glucose 157 H Hemoglobin A1c 9.3 H Lactic Acid 2.5 H* Calcium 8.7 Total Bilirubin 0.44 AST 45 H ALT 21 Alkaline Phosphatase 85 C-React Prot Ext Range 24.10 H Total Protein 5.2 L Albumin 2.8 L Globulin 2.4 Albumin/Globulin Ratio 1.2 TSH 4.470 H Management Discussion w/another healthcare provider: Hospitalist (Case discussed with Dr. Jarod Park. After discussing case he made a suggestion of obtain a CT. CT reveals evidence of cellulitis. There is no evidence of osteomyelitis. Plan is admit ICU) Critical Care Time Critical Care Time: Yes Critical care time (excluding procedures): 30-74 minutes (39), Including time spent: (History, physical, documentation, discussion with , review of prior records, independent or potation of laboratory results and none advanced imaging), Discussing w/Patient &/or Family/Aircraft Painter, Discussing w/Consultants and Arranging Admission or Transfer Discharge Plan Dx/Rx/DC Orders Clinical Impression: Sepsis, Cellulitis of left leg, Acute hypotension, Acidosis, lactic, Type 2 diabetes mellitus with hyperglycemia, without long-term current use of insulin, Elevated TSH, Physical debility, Acute hypokalemia Disposition Disposition: [facility] Care [facility]
[2025-06-02] VITALS (33 sets, daily range): BP systolic 91–134; BP diastolic 41–94; PULSE 51–87; RESP 12–20; TEMP 36.3–36.8; O2SAT 94–100; BMI 37.8; BMI 37.9; BMI 38.0; BMI 36.8
[2025-06-02] MEDS: Lactobacillis Acidophilus 1 CAP PO ×5 (01:20→21:14)
[2025-06-02] MEDS: Piperacil/Tazobactam 3.375 GM in 0.9% Normal Saline (50mL MB+) 50 ML IV ×3 (01:20→21:12)
[2025-06-02] MEDS: OLANZapine 5 MG/TAB TAB.RAPDIS PO ×2 (01:21→21:22)
[2025-06-02] MEDS: APIXABAN 5 MG TABLET PO ×3 (01:21→21:14)
[2025-06-02] MEDS: Insulin Glargine-YFGN 100 UNIT/ML Pen 10 UNIT SC ×2 (01:24→21:23)
[2025-06-02] MEDS: Potassium Chloride Oral Tablet 20 MEQ 40 MEQ PO (01:34)
[2025-06-02 01:49] LABS: Free T3 1.8 pg/mL (2.18-3.98); Vitamin B12 1407 pg/mL (180-914)
[2025-06-02 06:47] LABS: Cholesterol 84 mg/dL (<=200); Low Density Lipoprotein Calc. 7 mg/dL; Triglycerides 307 mg/dL; Very Low Density Lipoprotein 61 mg/dL (5-40); cholesterol:hdl ratio screen 5.17
--- NOTE | 2025-06-02 08:35 | EX.PCM.CONCC ---
Assessment & Plan Assessment/Plan (1) Acute hypotension: PLAN: Plan RECOMMENDATIONS: 1. Continue Levophed to maintain a mean arterial pressure at or above 65 mmHg. 2. Continue empiric antimicrobials. 3. Start scheduled midodrine 3 times daily. 4. Dialysis support per nephrology recommendations. 5. Continue Eliquis per home regimen. 6. Encourage incentive spirometer use and mobilize patient as tolerated. IMPRESSIONS: 1. Septic shock Although there was initial concern for possible underlying sepsis as the precipitating etiology for the patient's hypotension, I do also have to wonder if the hemodynamic compromise is related to the fluid shifts associated with his peritoneal dialysis. The patient was ultimately started on vasopressors due to ongoing hemodynamic instability. There was initial concern for possible volume overload in the setting of renal disease. Therefore, full resuscitative sepsis related fluids were not administered. Given that the patient has reported hypotension on a chronic basis, would recommend that we initiate scheduled midodrine 3 times daily. In the interim, we will plan to continue empiric antibiotics, pending infectious workup. 2. End-stage renal disease on hemodialysis Continue dialysis support per nephrology recommendations. 3. Paroxysmal atrial fibrillation/history of CVA/diabetes mellitus/anxiety/depression/unspecified seizure disorder Complicates care, management, recovery and prognosis. Continue home medications as indicated. PT/OT to work with the patient. TIME: 37 minutes of critical care time, independent of procedures, was spent addressing the patient's septic shock, end-stage renal disease on hemodialysis, review of all data and collaboration with the care team. HPI Consult Data Date of Consult: 06/02/25 HPI Narrative Reason for Consultation: Hypotension HPI Narrative: The patient is a 75-year-old male, with a history as outlined below, who presented to the emergency department on June 01 with subjective fevers, chills and confusion. The patient has a known history of end-stage renal disease on dialysis. While the patient initially began with hemodialysis sessions on a scheduled basis, he was transitioned to peritoneal dialysis over the course of the last 2 weeks. According to report, the patient's blood pressures have been running on the low side with his dialysis sessions. 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 The patient currently has a tunneled dialysis catheter, his peritoneal dialysis catheter and a left upper extremity AV fistula. On presentation to the emergency department, the patient was documented to be afebrile with a presenting blood pressure 102/65 mmHg. Laboratory evaluation revealed a normal white blood cell count. Hemoglobin and platelet count were stable. Chemistry profile was notable for a potassium of 2.5 with an anion gap of 18, BUN of 31 and creatinine of 6.18. Lactate was elevated at 2.5. Left lower extremity CT imaging demonstrated no acute or aggressive osseous abnormality with generalized lower extremity subcutaneous edema and cellulitic changes. Respiratory viral panel was negative. Blood and urine cultures were collected. The patient was initiated on antimicrobial therapy and admitted to the medical intensive care unit. The patient did receive a small amount of IV fluid resuscitation. On arrival to the ICU, the patient ultimately required the initiation of vasopressor support to maintain hemodynamic stability. Accordingly, a central venous catheter was placed to facilitate administration of vasopressor agents. The patient was evaluated by nephrology with tentative plans to proceed with conventional hemodialysis. [facility] Medical History Physical debility Arteriovenous fistula of left upper extremity ESRD (end stage renal disease) on dialysis Leg swelling Dyspnea on exertion Fatigue Shortness of breath CKD (chronic kidney disease) Bilateral leg edema Preoperative cardiovascular examination Osteopenia determined by x-ray Aftercare following explantation of knee joint prosthesis Infected prosthetic knee joint Chronic anticoagulation Urine retention USP current use of amiodarone WANDA (obstructive sleep apnea) Cognitive dysfunction Easy bruising Excessive bleeding Gastric reflux Non-smoker A-V fistula History of Clostridium difficile infection Wears dentures Depression Anxiety Insulin dependent diabetes mellitus Walker as ambulation aid Ambulates with cane Arthritis History of renal dialysis High cholesterol Restless legs Back pain Dietary restriction Shortness of breath on exertion Leg cramps History of pain when walking History of edema History of Holter monitoring History of stress test History of echocardiogram Cardiology follow-up encounter Atrial tachycardia History of CVA (cerebrovascular accident) Left-sided weakness Diabetes mellitus, type 2 Persistent atrial fibrillation BPH (benign prostatic hyperplasia) Depression Normochromic normocytic anemia Iron deficiency History of iron deficiency Cerebral artery occlusion with cerebral infarction Acute right MCA stroke Longstanding persistent atrial fibrillation Chronic combined systolic and diastolic CHF (congestive heart failure) 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 (LBBB) Acute on chronic combined systolic (congestive) and diastolic (congestive) heart failure (02/02/20) History of non-ST elevation myocardial infarction (NSTEMI) (02/02/20) Non-ischemic cardiomyopathy NSVT (nonsustained ventricular tachycardia) Obesity CVA (cerebral vascular accident) (12/2017) Secondary pulmonary arterial hypertension GERD (gastroesophageal reflux disease) Hyperlipidemia Essential (primary) hypertension CKD (chronic kidney disease), stage III Paroxysmal atrial fibrillation Anemia Chronic low back pain Osteoarthritis Home Medications ?Medication ?Instructions ?Recorded ?Last Taken ?Type multivitamin (Daily Multi-Vitamin 1 tab PO DAILY Supplement 02/12/22 04/25/25 History tablet) tamsulosin 0.4 mg capsule 0.4 mg PO BID Urine retention 02/12/22 04/25/25 History ascorbic acid (vitamin C) 500 mg 1,000 mg PO LUNCH Supplement 02/28/23 04/25/25 History tablet acetaminophen 500 mg tablet 1,000 mg (2 x 500 mg) PO Q8H PRN 03/15/23 04/04/25 Rx PRN Pain 1-10 #1 TAB ferrous sulfate 325 mg (65 mg 325 mg PO DAILY supplement #30 tabs 03/15/23 04/25/25 Rx iron) tablet buspirone 15 mg tablet 15 mg PO TID Mood 11/22/23 04/25/25 History docusate sodium 100 mg capsule 100 mg PO BID PRN constipation 11/22/23 Unknown History olanzapine 5 mg tablet 5 mg PO QHS 11/22/23 04/25/25 History omeprazole 40 mg capsule,delayed 40 mg PO QDAY 11/22/23 04/25/25 History release sertraline 100 mg tablet 100 mg PO QDAY 11/22/23 04/25/25 History zonisamide 50 mg capsule 50 mg PO BID 11/22/23 04/25/25 History aspirin 81 mg tablet,delayed 81 mg PO QDAY Cardiac 12/08/24 04/25/25 History release (Adult Low Dose Aspirin) rosuvastatin 20 mg tablet 20 mg PO QDAY 12/08/24 04/25/25 History cholecalciferol (vitamin D3) 25 50 mcg PO DAILY vitamin supplement 02/18/25 04/25/25 History mcg (1,000 unit) tablet amiodarone 200 mg tablet 100 mg PO BID BP 03/26/25 04/25/25 History fenofibrate 54 mg tablet 108 mg PO DAILY 03/26/25 04/25/25 History finasteride 5 mg tablet 5 mg PO QHS 03/26/25 04/25/25 History apixaban 5 mg tablet (Eliquis) 5 mg PO BID 04/26/25 04/25/25 History dextrose 40 % oral gel 10 g PO Q15M PRN hypoglycemia 04/26/25 Unknown History doxycycline hyclate 100 mg capsule 100 mg PO BID 04/26/25 04/25/25 History insulin glargine 100 unit/mL (3 16 unit subcut QHS Diabetes 04/26/25 04/25/25 History mL) subcutaneous pen (Lantus Solostar U-100 Insulin) insulin lispro 100 unit/mL 15 unit subcut TIDAC SLIDINING 04/26/25 04/25/25 History subcutaneous pen (Humalog KwikPen SCALE (U-100) Insulin) magnesium 250 mg tablet 250 mg PO DAILY SUPPLEMENT 04/26/25 04/25/25 History ondansetron HCl 4 mg tablet 2 mg PO Q8H nausea and vomiting 04/26/25 04/25/25 History polyethylene glycol 3350 17 17 g PO DAILY PRN constipation 04/26/25 Unknown History gram/dose oral powder (ClearLax) torsemide 5 mg tablet 5 mg PO DAILY 06/01/25 Unknown History Allergy/AdvReac Type Severity Reaction Status Date / Time rofecoxib Allergy Severe Swelling Verified 06/01/25 16:40 Family History Mother Heart disease Sister Heart disease Myocardial infarction CVA (cerebral vascular accident) Diabetes Brother CVA (cerebral vascular accident) Other Persistent atrial fibrillation Surgical History History of insertion of nerve stimulator History of surgery Hx of colonoscopy Hx of lumbar discectomy Hx of total knee arthroplasty History of knee replacement, total Social History household members: spouse Smoking Status: Never smoker alcohol intake: current alcohol intake frequency: holidays/special occasions only Alcohol type: beer substance use type: does not use caffeine: Yes Type: coffee Number of servings: 2 ROS ROS Narrative 10 systems were reviewed with pertinent positives as noted in the HPI above. Physical Exam Const alert and no apparent distress Constitutional Narrative: is present at the bedside. General Appearance: cooperative HEENT normocephalic and head/scalp atraumatic Eyes EOMs intact bilaterally, conjunctivae normal and no scleral icterus Neck supple General: trachea midline Chest Chest Narrative: Tunneled dialysis catheter in place. Resp normal respiratory effort Auscultation: Negative for rales, rhonchi or wheezes Cardio regular rate and regular rhythm GI soft to palpation and non-tender GI Narrative: Peritoneal dialysis catheter in place Extremity Extremity Narrative: Left upper extremity AV fistula. Mild lower extremity cellulitic changes and edema Neuro CN's II-XII intact bilaterally, moves all extremities and no focal motor deficits Psych Mood & Affect: flat affect Lab / Micro Data 06/02/25 08:53 06/02/25 08:53 Labs: Laboratory Results - last 24 hr 06/01/25 16:55: WBC 6.9, RBC 2.97 L, Hgb 10.2 L, Hct 30.5 L, MCV 102.7 H, MCH 34.3 H, MCHC 33.4, RDW Std Deviation 60.3 H, RDW Coeff of Whitney 15.7 H, Plt Count 202, MPV 11.2, Immature Gran % (Auto) 0.300, Neut % (Auto) 72.0 H, Lymph % (Auto) 10.9 L, [place] % (Auto) 12.0 H, Eos % (Auto) 4.2, Baso % (Auto) 0.6, Absolute Neuts (auto) 5.0, Absolute Lymphs (auto) 0.75 L, Nucleated RBC % 0, ESR 21 H, Sodium 137, Potassium 2.5 L*, Chloride 94 L, Carbon Dioxide 25.6, Anion Gap 18 H, BUN 31 H, Creatinine 6.18 H, Estim Creat Clear Calc 12.94 L, Est GFR (MDRD) Non-Af 9 L, BUN/Creatinine Ratio 5.0 L, Glucose 157 H, Hemoglobin A1c 9.3 H, Lactic Acid 2.5 H*, Calcium 8.7, Total Bilirubin 0.44, AST 45 H, ALT 21, Alkaline Phosphatase 85, C-React Prot Ext Range 24.10 H, Total Protein 5.2 L, Albumin 2.8 L, Globulin 2.4, Albumin/Globulin Ratio 1.2, TSH 4.470 H 06/01/25 21:09: Lactic Acid 1.5, Serum Folate 11.50, Ethyl Alcohol < 10.1 06/02/25 00:52: Vitamin B12 1407 H, Free T4 1.20, Free T3 pg/dL 1.8 L 06/02/25 01:24: POC Glucose 172 H 06/02/25 06:15: Triglycerides 307 H, Cholesterol 84, LDL Cholesterol, Calc 7, VLDL Cholesterol 61 H, HDL Cholesterol 16 L, Cholesterol/HDL Ratio 5.17 06/02/25 06:52: POC Glucose 149 H Micro: Microbiology 06/02/25 01:00 Mucosa - Nasopharyngeal Respiratory Panel (PCR) - Final Imaging Radiology Impression Lower Extremity CT 06/01/25 21:04 IMPRESSION: No acute or aggressive osseous abnormality. Generalized lower extremity subcutaneous edema and cellulitic changes. No drainable fluid collection/abscess. Reading Location: [id number] Charges/Coding Procedures Hospitalists Procedures: [id number] Critical Care 1st Hr
--- NOTE | 2025-06-02 08:50 | PN.HOSP_ITS ---
Subjective Subjective Resting, Levophed was increased to 15 this morning Objective Data Objective Data Vital Signs: Vital Signs Temp Pulse Resp BP Pulse Ox O2 Del Method 98.3 F 70 18 94/41 L 94 Room Air 06/02/25 00:15 06/02/25 04:00 06/02/25 00:15 06/02/25 00:15 06/02/25 00:15 06/02/25 03:24 Oxygen Delivery Method Room Air Weight: 256 lb 9.889 oz Body Mass Index (BMI) 37.9 Intake & Output: Intake and Output for Last 24 Hours 06/01/25 06/02/25 06/03/25 03:59 03:59 03:59 Intake Total 1353.1 / 1371.9 143.96 / 143.96 Balance 1353.1 / 1371.9 143.96 / 143.96 Lab / Micro Data 06/01/25 16:55 06/01/25 16:55 Labs: Laboratory Results - last 24 hr 06/01/25 16:55: WBC 6.9, RBC 2.97 L, Hgb 10.2 L, Hct 30.5 L, MCV 102.7 H, MCH 34.3 H, MCHC 33.4, RDW Std Deviation 60.3 H, RDW Coeff of Whitney 15.7 H, Plt Count 202, MPV 11.2, Immature Gran % (Auto) 0.300, Neut % (Auto) 72.0 H, Lymph % (Auto) 10.9 L, [place] % (Auto) 12.0 H, Eos % (Auto) 4.2, Baso % (Auto) 0.6, Absolute Neuts (auto) 5.0, Absolute Lymphs (auto) 0.75 L, Nucleated RBC % 0, ESR 21 H, Sodium 137, Potassium 2.5 L*, Chloride 94 L, Carbon Dioxide 25.6, Anion Gap 18 H, BUN 31 H, Creatinine 6.18 H, Estim Creat Clear Calc 12.94 L, Est GFR (MDRD) Non-Af 9 L, BUN/Creatinine Ratio 5.0 L, Glucose 157 H, Hemoglobin A1c 9.3 H, Lactic Acid 2.5 H*, Calcium 8.7, Total Bilirubin 0.44, AST 45 H, ALT 21, Alkaline Phosphatase 85, C-React Prot Ext Range 24.10 H, Total Protein 5.2 L, A lbumin 2.8 L, Globulin 2.4, Albumin/Globulin Ratio 1.2, TSH 4.470 H 06/01/25 21:09: Lactic Acid 1.5, Serum Folate 11.50, Ethyl Alcohol < 10.1 06/02/25 00:52: Vitamin B12 1407 H, Free T4 1.20, Free T3 pg/dL 1.8 L 06/02/25 01:24: POC Glucose 172 H 06/02/25 06:15: Triglycerides 307 H, Cholesterol 84, LDL Cholesterol, Calc 7, V LDL Cholesterol 61 H, HDL Cholesterol 16 L, Cholesterol/HDL Ratio 5.17 06/02/25 06:52: POC Glucose 149 H Micro: Microbiology 06/02/25 01:00 Mucosa - Nasopharyngeal Respiratory Panel (PCR) - Final Radiography Diagnostic Testing: Radiology Impression Lower Extremity CT 06/01/25 21:04 IMPRESSION: No acute or aggressive osseous abnormality. Generalized lower extremity subcutaneous edema and cellulitic changes. No drainable fluid collection/abscess. Reading Location: [facility] Physical Exam Narrative General: Alert, Oriented x3, Cooperative, No apparent distress HEENT: Atraumatic, PERRLA, EOMI, Normocephalic Oral: Moist Mucosa Neck: Supple, No JVD Lungs: Diminished, Normal air movement, No rhonchi, No wheeze, No rales Cardiovascular: Regular rate, Regular Rhythm, Normal S1, Normal S2, No murmurs Abdomen: Soft, Non Tender, Non-Distended, No Hepato-splenomegaly Extremities: Edema, Capillary Refill Less than 3 Seconds Skin: Left lower extremity redness Musculoskeletal: No Tenderness to Palpation of Joints or Extremities Neurological: No focal neurological deficits, moves all extremities Psych/Mental Status: Normal Affect, Appropriate Assessment & Plan Assessment/Plan (1) Cellulitis: QUALIFIERS: Site of cellulitis: extremity Site of cellulitis of extremity: lower extremity Laterality: left Qualified Code(s): L03.116 - Cellulitis of left lower limb (2) Sepsis: QUALIFIERS: Sepsis type: sepsis due to unspecified organism S epsis acute organ dysfunction status: without acute organ dysfunction Qualified Code(s): A41.9 - Sepsis, unspecified organism PLAN: Plan 1. Septic shock secondary to left lower extremity cellulitis/hypokalemia ? Continue broad-spectrum antibiotics ? Appreciate rn endoscopy assistance as well as nephrology assistance ? Pending ID evaluation ? CT of the left lower extremity was unremarkable with no abscess ? Currently on Levophed will titrate as necessary was given a dose of albumin ? Recheck potassium this morning 2. Paroxysmal A-fib/essential HTN/HLD/history of CVA ? Had an MCA CVA on the right status post thrombectomy at [facility] with continued left-sided weakness ? Continue with his amiodarone bolus aspirin and Eliquis though recent research is drawing into question the necessity of an antiplatelet in the setting of anticoagulation ? Continue with Levophed ? Continue with Crestor ? Given his hypotension we will hold torsemide especially since he has need for fluids 3. DM2 ? Sign scale insulin ? Accu-Cheks ? Will monitor make adjustments as necessary 4. Anxiety/depression ? Stable ? Continue with his home medications 5. Suspected seizure disorder ? Continue zonisamide 6. Iron deficiency anemia ? Continue with his iron supplementation ? B12 and folate levels are normal 7. BPH with obstruction ? Stable ? Continue with his home medications 8. GERD ? Stable ? Continue PPI DVT: Eligiorgiois Charges/Coding Visit Charges Inpatient E&M: 91055 Subs Hosp L2
[2025-06-02 09:12] LABS: Hematocrit 28.6 % (40-54); Hemoglobin 9.5 g/dL (13.0-16.5); Immature Granulocytes Count 0.050 X10^3/uL (0.0-0.0); Mean Corp Hgb Conc 33.2 g/dL (32-36); Mean Corpuscular Volume 102.5 fL (80-94); Mean Platelet Vol. 11.1 fl (6.2-12.0); NRBC Flagged by Analyzer 0 % (0-5); Platelet Count 213 K/mm3 (150-450); RBC Distribution Width CV 15.7 % (11.6-14.6); RBC Distribution Width SD 58.9 fl (35.1-43.9); Red Blood Count 2.79 M/mm3 (4.6-6.2); White Blood Count 8.5 K/mm3 (4.4-11.0)
--- NOTE | 2025-06-02 09:33 | PCM.OP.PRO2 ---
Procedures Hospitalists Procedures: [id number] Insert Non-tunnel CV Cath Non-invasive Procedural Procedure Information Date of Procedure: 06/02/25 Description of procedure: Central Venous Catheter Indication: Hypotension Consent was obtained from: Patient A time-out was completed verifying correct patient, procedure, site, positioning, and special equipment if applicable. The patient was placed in a dependent position appropriate for central line placement based on the vein to be cannulated. The patient's right groin was prepped and draped in a sterile fashion. 1% lidocaine was used to anesthetize the surrounding skin area. A triple-lumen catheter was introduced into the right femoral vein using the Seldinger technique and under ultrasound guidance. The catheter was threaded smoothly over the guidewire and appropriate blood return was obtained. Each lumen of the catheter was evacuated of air and flushed with sterile saline. The catheter was then sutured in place to the skin and a sterile dressing applied. ULTRASOUND GUIDANCE STATEMENT (Vascular Access): I performed ultrasound image acquisition and interpretation for needle placement during the procedure. The vessel was identified and found to be free of thrombosis by compression technique. A safe point of entry was marked at the skin in an angle for axis was determined. The needle was guided by obtaining free-flowing fluid and by real-time visualization.
[2025-06-02 09:34] LABS: AST(SGOT) 45 U/L (<=37); Alanine Aminotransfer ALT/SGPT 20 U/L (<=46); Albumin, Serum 2.8 g/dL (3.4-4.8); Alkaline Phosphatase 77 U/L (40-129); Anion Gap 19 (5-15); BUN 34 mg/dL (4-19); BUN/Creat Ratio 5.1 RATIO (10-20); Calcium,Total 8.3 mg/dL (7.6-11.0); Carbon Dioxide 21.7 mmol/L (21.0-32.0); Chloride 95 mmol/L (98-108); Estimated Creatinine Clearance 11.88 ml/min (50-250); Globulin 2.2 g/dL (2.2-4.2); Glucose 182 mg/dL (70-99); Potassium 2.8 mmol/L (3.3-5.1)
--- NOTE | 2025-06-02 10:15 | CASEMGMT ---
Addendum entered by Zakia Valentine 06/02/25 10:50: [facility] confirmed that pt is active and receives PT/OT/SN. RN CM updated. Zakia Valentine DC Planning Asst. Original Note: Discharge Planning Note sent to [facility] via [facility] for confirmation that pt is active with agency and what disciplines he is receiving. Awaiting response. Zakia Valentine DC Planning Asst.
--- NOTE | 2025-06-02 10:31 | CASEMGMT ---
This RN CM reviewed the pt's chart and appreciated ED SW initial assessment. Nephro and ID are consulted. PT is not currently ordered. RN CM to the pt's room at this time regarding future DC planning. Pt's at the bedside. Pt states that he started PD at home x2 weeks ago. Pt states that he used to go to [facility] in [place] q TTS. Pt states that he prefers to continue PD @ home instead of going to the dialysis center, if possible. Noted that the pt is currently requiring additional oxygen and may qualify for home oxygen use. A verbal list of local in-network DME companies were provided to the pt at this time. Pt prefers [employer]Pt states that he is active with [facility] and wishes to continue their services. DPA biology research assistant notified. At this time, the pt states that he is very weak and feels like he cannot even ambulate to the door and back. This RN CM inquired if the pt would be receptive to a PT eval, once appropriate. Pt states that he would be willing to participate once the time is right. Updated the pt's RN who reports tomorrow may be more appropriate with the pt's current medical needs (Levo, hypotension). This RN CM inquired if the pt has ever had IV ATBs at home. Pt states that he has been on IV ATBs in the past and states that he went to a SNF for the infusions. Pt states that he has been to [facility] and [facility]. At this time, the pt reports that if he were to qualify for a SNF stay, he would prefer [facility] the [facility]. Pt and pt's deny further questions or concerns at this time. CM to follow PT eval once appropriate, as well as nephro and ID consults. Follow for oxygen needs and [facility] if the pt were to DC home. Follow for HD needs.
--- NOTE | 2025-06-02 10:43 | PCM.RX.CS ---
Consult Antibiotic Management Pharmacy has been consulted to manage selected antibiotic: Vancomycin Type of Intervention Type of Consult: New start Suspected Infection Suspected Infection: Sepsis and Skin/Soft tissue Prior Doses of Antibiotics Prior Doses of Antibiotics Received/Current Regimen: received vanc 2000mg IV x1 in E.R. last night starting at 19:42 Labs Labs: Sodium 136 mmol/L (133-145) 06/02/25 08:53 Potassium 2.8 mmol/L (3.3-5.1) L 06/02/25 08:53 Chloride 95 mmol/L (98-108) L 06/02/25 08:53 Carbon Dioxide 21.7 mmol/L (21.0-32.0) 06/02/25 08:53 Anion Gap 19 (5-15) H 06/02/25 08:53 BUN 34 mg/dL (4-19) H 06/02/25 08:53 Creatinine 6.76 mg/dL (0.70-1.20) H 06/02/25 08:53 Est GFR (MDRD) Non-Af 8 (>60) L 06/02/25 08:53 BUN/Creatinine Ratio 5.1 RATIO (10-20) L 06/02/25 08:53 Glucose 182 mg/dL (70-99) H 06/02/25 08:53 Microbiology Microbiology: Microbiology 06/02/25 01:00 Mucosa - Nasopharyngeal Respiratory Panel (PCR) - Final Dosing Weight Weight used for dosin.4 kg Estimated Creatinine Clearance Estimated Creatinine Clearance: on HD Goal Trough Goal Trough: 15-20 mcg/mL Pharmacy Plan for Drug Dosing Pharmacy Plan for Drug Dosing: The patient had an initial dose as noted above in E.R. last night. He is going to get dialysis today so will schedule a 2nd dose of vanc 1000mg IV x1 (based on the patient's weight) to be given after HD later this evening, per [facility] protocol for dosing vanc in patients on hemodialysis. Subsequent doses after today will be guided by pre-dialysis random vanc levels. Will order a random level before that next HD when the dialysis schedule is known. Pharmacy Service will continue to monitor and adjust dosing as required. Date/Time Labs Ordered Labs to be done on [date and time ordered]: will order once the HD schedule is known
[2025-06-02] MEDS: Cholecalciferol (VIT D3) 25 MCG TABLET (1,000 UNITS) 50 MCG PO (10:46)
[2025-06-02] MEDS: Aspirin E.C. 81 MG Tablet PO (10:47)
--- NOTE | 2025-06-02 10:50 | PCM.CONS.R ---
Assessment & Plan Assessment/Plan (1) ESRD (end stage renal disease) on dialysis: PLAN: Was on intermittent hemodialysis. Recently switched to peritoneal dialysis about 2 weeks ago. Worsening lower extremity edema, in total he gained about 16 pounds. Likely resulting in lower extremity edema and some redness around. Will need fluid removal. Will start with UF today. For access she has a right IJ tunneled dialysis catheter. He also has a left arm AV fistula which apparently has been cleared by vascular surgery to use. For today will use catheter for UF. We may try fistula later on as needed. UF of about 1 L a day with peritoneal dialysis. He does have significant fluid gains. Does not make much urine. Not sure how it will work out. Will call outpatient dialysis unit. In general he runs low blood pressure. While on hemodialysis his systolic was around 90 systolic. Gets midodrine with dialysis. Currently systolic is around 95 which is not significantly different compared to his baseline reading. Will use midodrine with UF. Discussed with family at bedside HPI Consult Data Date of Consult: 06/02/25 HPI Narrative Reason for Consultation: esrd HPI Narrative: VIVI SAINI, is a 75 M who presents to the hospital with lower extremity edema, cellulitis. Nephrology on consultation in view of ESRD. He is well-known to me from office. ESRD, was initially on hemodialysis with catheter. Recently switched to peritoneal dialysis. Worsening lower extremity edema, recently had couple of open wounds, now has redness. Being treated for cellulitis. In general he runs low blood pressure. In total he looks like he may have gained about 16 pounds of fluid. Breathing has been off. Using 2.5 dextrose, UF 1 L or so a day. 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 WANDA (obstructive sleep apnea) Cognitive dysfunction Easy bruising Excessive bleeding Gastric reflux Non-smoker A-V fistula History of Clostridium difficile infection Wears dentures Depression Anxiety Insulin dependent diabetes mellitus Walker as ambulation aid Ambulates with cane Arthritis History of renal dialysis High cholesterol Restless legs Back pain Dietary restriction Shortness of breath on exertion Leg cramps History of pain when walking History of edema History of Holter monitoring History of stress test History of echocardiogram Cardiology follow-up encounter Atrial tachycardia History of CVA (cerebrovascular accident) Left-sided weakness Diabetes mellitus, type 2 Persistent atrial fibrillation BPH (benign prostatic hyperplasia) Depression Normochromic normocytic anemia Iron deficiency History of iron deficiency Cerebral artery occlusion with cerebral infarction Acute right MCA stroke Longstanding persistent atrial fibrillation Chronic combined systolic and diastolic CHF (congestive heart failure) 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 (LBBB) Acute on chronic combined systolic (congestive) and diastolic (congestive) heart failure (02/02/20) History of non-ST elevation myocardial infarction (NSTEMI) (02/02/20) Non-ischemic cardiomyopathy NSVT (nonsustained ventricular tachycardia) Obesity CVA (cerebral vascular accident) (12/2017) Secondary pulmonary arterial hypertension GERD (gastroesophageal reflux disease) Hyperlipidemia Essential (primary) hypertension CKD (chronic kidney disease), stage III Paroxysmal atrial fibrillation Anemia Chronic low back pain Osteoarthritis Home Medications ?Medication ?Instructions ?Recorded ?Last Taken ?Type multivitamin (Daily Multi-Vitamin 1 tab PO DAILY Supplement 02/12/22 04/25/25 History tablet) tamsulosin 0.4 mg capsule 0.4 mg PO BID Urine retention 02/12/22 04/25/25 History ascorbic acid (vitamin C) 500 mg 1,000 mg PO LUNCH Supplement 02/28/23 04/25/25 History tablet acetaminophen 500 mg tablet 1,000 mg (2 x 500 mg) PO Q8H PRN 03/15/23 04/04/25 Rx PRN Pain 1-10 #1 TAB ferrous sulfate 325 mg (65 mg 325 mg PO DAILY supplement #30 tabs 03/15/23 04/25/25 Rx iron) tablet buspirone 15 mg tablet 15 mg PO TID Mood 11/22/23 04/25/25 History docusate sodium 100 mg capsule 100 mg PO BID PRN constipation 11/22/23 Unknown History olanzapine 5 mg tablet 5 mg PO QHS 11/22/23 04/25/25 History omeprazole 40 mg capsule,delayed 40 mg PO QDAY 11/22/23 04/25/25 History release sertraline 100 mg tablet 100 mg PO QDAY 11/22/23 04/25/25 History zonisamide 50 mg capsule 50 mg PO BID 11/22/23 04/25/25 History aspirin 81 mg tablet,delayed 81 mg PO QDAY Cardiac 12/08/24 04/25/25 History release (Adult Low Dose Aspirin) rosuvastatin 20 mg tablet 20 mg PO QDAY 12/08/24 04/25/25 History cholecalciferol (vitamin D3) 25 50 mcg PO DAILY vitamin supplement 02/18/25 04/25/25 History mcg (1,000 unit) tablet amiodarone 200 mg tablet 100 mg PO BID BP 03/26/25 04/25/25 History fenofibrate 54 mg tablet 108 mg PO DAILY 03/26/25 04/25/25 History finasteride 5 mg tablet 5 mg PO QHS 03/26/25 04/25/25 History apixaban 5 mg tablet (Eliquis) 5 mg PO BID 04/26/25 04/25/25 History dextrose 40 % oral gel 10 g PO Q15M PRN hypoglycemia 04/26/25 Unknown History doxycycline hyclate 100 mg capsule 100 mg PO BID 04/26/25 04/25/25 History insulin glargine 100 unit/mL (3 16 unit subcut QHS Diabetes 04/26/25 04/25/25 History mL) subcutaneous pen (Lantus Solostar U-100 Insulin) insulin lispro 100 unit/mL 15 unit subcut TIDAC SLIDINING 04/26/25 04/25/25 History subcutaneous pen (Humalog KwikPen SCALE (U-100) Insulin) magnesium 250 mg tablet 250 mg PO DAILY SUPPLEMENT 04/26/25 04/25/25 History ondansetron HCl 4 mg tablet 2 mg PO Q8H nausea and vomiting 04/26/25 04/25/25 History polyethylene glycol 3350 17 17 g PO DAILY PRN constipation 04/26/25 Unknown History gram/dose oral powder (ClearLax) torsemide 5 mg tablet 5 mg PO DAILY 06/01/25 Unknown History Allergy/AdvReac Type Severity Reaction Status Date / Time rofecoxib Allergy Severe Swelling Verified 06/01/25 16:40 Family History Mother Heart disease Sister Heart disease Myocardial infarction CVA (cerebral vascular accident) Diabetes Brother CVA (cerebral vascular accident) Other Persistent atrial fibrillation Surgical History History of insertion of nerve stimulator History of surgery Hx of colonoscopy Hx of lumbar discectomy Hx of total knee arthroplasty History of knee replacement, total Social History household members: spouse Smoking Status: Never smoker alcohol intake: current alcohol intake frequency: holidays/special occasions only Alcohol type: beer substance use type: does not use caffeine: Yes Type: coffee Number of servings: 2 ROS ROS Narrative Negative except above Physical Exam Narrative Alert awake oriented x 3 no obvious distress no pallor no icterus no JVD s1s2 no murmurs lungs clear abdomen soft no organomegaly +++ edema Lab / Micro Data 06/02/25 08:53 06/02/25 08:53 Labs: Laboratory Results - last 24 hr 06/01/25 16:55: WBC 6.9, RBC 2.97 L, Hgb 10.2 L, Hct 30.5 L, MCV 102.7 H, MCH 34.3 H, MCHC 33.4, RDW Std Deviation 60.3 H, RDW Coeff of Whitney 15.7 H, Plt Count 202, MPV 11.2, Immature Gran % (Auto) 0.300, Neut % (Auto) 72.0 H, Lymph % (Auto) 10.9 L, [place] % (Auto) 12.0 H, Eos % (Auto) 4.2, Baso % (Auto) 0.6, Absolute Neuts (auto) 5.0, Absolute Lymphs (auto) 0.75 L, Nucleated RBC % 0, ESR 21 H, Sodium 137, Potassium 2.5 L*, Chloride 94 L, Carbon Dioxide 25.6, Anion Gap 18 H, BUN 31 H, Creatinine 6.18 H, Estim Creat Clear Calc 12.94 L, Est GFR (MDRD) Non-Af 9 L, BUN/Creatinine Ratio 5.0 L, Glucose 157 H, Hemoglobin A1c 9.3 H, Lactic Acid 2.5 H*, Calcium 8.7, Total Bilirubin 0.44, AST 45 H, ALT 21, Alkaline Phosphatase 85, C-React Prot Ext Range 24.10 H, Total Protein 5.2 L, Albumin 2.8 L, Globulin 2.4, Albumin/Globulin Ratio 1.2, TSH 4.470 H 06/01/25 21:09: Lactic Acid 1.5, Serum Folate 11.50, Ethyl Alcohol < 10.1 06/02/25 00:52: Vitamin B12 1407 H, Free T4 1.20, Free T3 pg/dL 1.8 L 06/02/25 01:24: POC Glucose 172 H 06/02/25 06:15: Triglycerides 307 H, Cholesterol 84, LDL Cholesterol, Calc 7, VLDL Cholesterol 61 H, HDL Cholesterol 16 L, Cholesterol/HDL Ratio 5.17 06/02/25 06:52: POC Glucose 149 H 06/02/25 08:53: WBC 8.5, RBC 2.79 L, Hgb 9.5 L, Hct 28.6 L, MCV 102.5 H, MCH 34.1 H, MCHC 33.2, RDW Std Deviation 58.9 H, RDW Coeff of [place] 15.7 H, Plt Count 213, MPV 11.1, Immature Gran % (Auto) 0.600, Neut % (Auto) 69.2, Lymph % (Auto) 12.1 L, [place] % (Auto) 12.0 H, Eos % (Auto) 5.4 H, Baso % (Auto) 0.7, Absolute Neuts (auto) 5.9, Absolute Lymphs (auto) 1.02, Nucleated RBC % 0, Sodium 136, Potassium 2.8 L, Chloride 95 L, Carbon Dioxide 21.7, Anion Gap 19 H, BUN 34 H, Creatinine 6.76 H, Estim Creat Clear Calc 11.88 L, Est GFR (MDRD) Non-Af 8 L, BUN/Creatinine Ratio 5.1 L, Glucose 182 H, Calcium 8.3, Total Bilirubin 0.48, AST 45 H, ALT 20, Alkaline Phosphatase 77, Total Protein 5.0 L, Albumin 2.8 L, Globulin 2.2, Albumin/Globulin Ratio 1.3 Micro: Microbiology 06/02/25 01:00 Mucosa - Nasopharyngeal Respiratory Panel (PCR) - Final Imaging Radiology Impression Lower Extremity CT 06/01/25 21:04 IMPRESSION: No acute or aggressive osseous abnormality. Generalized lower extremity subcutaneous edema and cellulitic changes. No drainable fluid collection/abscess. Reading Location: [facility]
[2025-06-02] MEDS: Magnesium Chloride 64 MG Delay Rel.Tablet PO (10:51)
[2025-06-02] MEDS: Norepinephrine Bit/0.9% NaCl 8 MG/250 ML IV.SOLN 28.1 MG CONT INF (11:01)
[2025-06-02] MEDS: 0.9% Normal Saline 1,000 ML IV.SOLN. 1000 ML OPERA.SITE (13:34)
[2025-06-02] MEDS: 0.9% Saline Lock 10 ML Syringe IV (13:34)
--- NOTE | 2025-06-02 13:54 | PCM.CONS.GEN ---
Assessment & Plan Assessment/Plan (1) Acute hypotension: PLAN: Not clear if hypotension is related to infection. On empiric vanc/zosyn while cxs pending. Had been on peritoneal dialysis recently, but no abd symptoms. LLE with some mild redness, tenderness, serous drainage. Will follow, thank you (2) Type 2 diabetes mellitus with hyperglycemia, without long-term current use of insulin: (3) Cellulitis: QUALIFIERS: Site of cellulitis: extremity Site of cellulitis of extremity: lower extremity Laterality: left Qualified Code(s): L03.116 - Cellulitis of left lower limb HPI Consult Data Date of Consult: 06/02/25 HPI Narrative Reason for Consultation: septic shock HPI Narrative: VIVI SAINI, is a 75 M with ESRD, was started on PD for past 2 weeks. Presented to ED 06/01 with hypotension, altered mental status. Does not make urine. Had increased swelling, weight gain, and RLE redness with serous drainage and moderate pain. Denies abd pain or n/v/d. Admitted to icu on vanc/zosyn. BP improved, getting UF this afternoon. Full ROS performed and neg except as noted above. [facility] Medical History Physical debility Arteriovenous fistula of left upper extremity ESRD (end stage renal disease) on dialysis Leg swelling Dyspnea on exertion Fatigue Shortness of breath CKD (chronic kidney disease) Bilateral leg edema Preoperative cardiovascular examination Osteopenia determined by x-ray Aftercare following explantation of knee joint prosthesis Infected prosthetic knee joint Chronic anticoagulation Urine retention emt intermediate current use of amiodarone WANDA (obstructive sleep apnea) Cognitive dysfunction Easy bruising Excessive bleeding Gastric reflux Non-smoker A-V fistula History of Clostridium difficile infection Wears dentures Depression Anxiety Insulin dependent diabetes mellitus Walker as ambulation aid Ambulates with cane Arthritis History of renal dialysis High cholesterol Restless legs Back pain Dietary restriction Shortness of breath on exertion Leg cramps History of pain when walking History of edema History of Holter monitoring History of stress test History of echocardiogram Cardiology follow-up encounter Atrial tachycardia History of CVA (cerebrovascular accident) Left-sided weakness Diabetes mellitus, type 2 Persistent atrial fibrillation BPH (benign prostatic hyperplasia) Depression Normochromic normocytic anemia Iron deficiency History of iron deficiency Cerebral artery occlusion with cerebral infarction Acute right MCA stroke Longstanding persistent atrial fibrillation Chronic combined systolic and diastolic CHF (congestive heart failure) 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 (LBBB) Acute on chronic combined systolic (congestive) and diastolic (congestive) heart failure (02/02/20) History of non-ST elevation myocardial infarction (NSTEMI) (02/02/20) Non-ischemic cardiomyopathy NSVT (nonsustained ventricular tachycardia) Obesity CVA (cerebral vascular accident) (12/2017) Secondary pulmonary arterial hypertension GERD (gastroesophageal reflux disease) Hyperlipidemia Essential (primary) hypertension CKD (chronic kidney disease), stage III Paroxysmal atrial fibrillation Anemia Chronic low back pain Osteoarthritis Home Medications ?Medication ?Instructions ?Recorded ?Last Taken ?Type multivitamin (Daily Multi-Vitamin 1 tab PO DAILY Supplement 02/12/22 04/25/25 History tablet) tamsulosin 0.4 mg capsule 0.4 mg PO BID Urine retention 02/12/22 04/25/25 History ascorbic acid (vitamin C) 500 mg 1,000 mg PO LUNCH Supplement 02/28/23 04/25/25 History tablet acetaminophen 500 mg tablet 1,000 mg (2 x 500 mg) PO Q8H PRN 03/15/23 04/04/25 Rx PRN Pain 1-10 #1 TAB ferrous sulfate 325 mg (65 mg 325 mg PO DAILY supplement #30 tabs 03/15/23 04/25/25 Rx iron) tablet buspirone 15 mg tablet 15 mg PO TID Mood 11/22/23 04/25/25 History docusate sodium 100 mg capsule 100 mg PO BID PRN constipation 11/22/23 Unknown History olanzapine 5 mg tablet 5 mg PO QHS 11/22/23 04/25/25 History omeprazole 40 mg capsule,delayed 40 mg PO QDAY 11/22/23 04/25/25 History release sertraline 100 mg tablet 100 mg PO QDAY 11/22/23 04/25/25 History zonisamide 50 mg capsule 50 mg PO BID 11/22/23 04/25/25 History aspirin 81 mg tablet,delayed 81 mg PO QDAY Cardiac 12/08/24 04/25/25 History release (Adult Low Dose Aspirin) rosuvastatin 20 mg tablet 20 mg PO QDAY 12/08/24 04/25/25 History cholecalciferol (vitamin D3) 25 50 mcg PO DAILY vitamin supplement 02/18/25 04/25/25 History mcg (1,000 unit) tablet amiodarone 200 mg tablet 100 mg PO BID BP 03/26/25 04/25/25 History fenofibrate 54 mg tablet 108 mg PO DAILY 03/26/25 04/25/25 History finasteride 5 mg tablet 5 mg PO QHS 03/26/25 04/25/25 History apixaban 5 mg tablet (Eliquis) 5 mg PO BID 04/26/25 04/25/25 History dextrose 40 % oral gel 10 g PO Q15M PRN hypoglycemia 04/26/25 Unknown History doxycycline hyclate 100 mg capsule 100 mg PO BID 04/26/25 04/25/25 History insulin glargine 100 unit/mL (3 16 unit subcut QHS Diabetes 04/26/25 04/25/25 History mL) subcutaneous pen (Lantus Solostar U-100 Insulin) insulin lispro 100 unit/mL 15 unit subcut TIDAC SLIDINING 04/26/25 04/25/25 History subcutaneous pen (Humalog KwikPen SCALE (U-100) Insulin) magnesium 250 mg tablet 250 mg PO DAILY SUPPLEMENT 04/26/25 04/25/25 History ondansetron HCl 4 mg tablet 2 mg PO Q8H nausea and vomiting 04/26/25 04/25/25 History polyethylene glycol 3350 17 17 g PO DAILY PRN constipation 04/26/25 Unknown History gram/dose oral powder (ClearLax) torsemide 5 mg tablet 5 mg PO DAILY 06/01/25 Unknown History Allergy/AdvReac Type Severity Reaction Status Date / Time rofecoxib Allergy Severe Swelling Verified 06/01/25 16:40 Family History Mother Heart disease Sister Heart disease Myocardial infarction CVA (cerebral vascular accident) Diabetes Brother CVA (cerebral vascular accident) Other Persistent atrial fibrillation Surgical History History of insertion of nerve stimulator History of surgery Hx of colonoscopy Hx of lumbar discectomy Hx of total knee arthroplasty History of knee replacement, total Social History household members: spouse Smoking Status: Never smoker alcohol intake: current alcohol intake frequency: holidays/special occasions only Alcohol type: beer substance use type: does not use caffeine: Yes Type: coffee Number of servings: 2 Physical Exam Const alert, oriented x3 and no apparent distress General Appearance: cooperative HEENT normocephalic and head/scalp atraumatic Eyes PERRL and EOMs intact bilaterally Neck supple and No nodes Resp normal air movement and clear to auscultation bilaterally Cardio regular rate and regular rhythm GI soft to palpation, non-tender and non-distended Extremity General Extremity: edema Skin Skin Narrative: Mild LLE redness, swelling, warmth, tenderness Neuro CN's II-XII intact bilaterally Lab / Micro Data Attestation: I reviewed the patient's lab results. 06/02/25 08:53 06/02/25 08:53 Labs: Laboratory Results - last 24 hr 06/01/25 16:55: WBC 6.9, RBC 2.97 L, Hgb 10.2 L, Hct 30.5 L, MCV 102.7 H, MCH 34.3 H, MCHC 33.4, RDW Std Deviation 60.3 H, RDW Coeff of [place] 15.7 H, Plt Count 202, MPV 11.2, Immature Gran % (Auto) 0.300, Neut % (Auto) 72.0 H, Lymph % (Auto) 10.9 L, [place] % (Auto) 12.0 H, Eos % (Auto) 4.2, Baso % (Auto) 0.6, Absolute Neuts (auto) 5.0, Absolute Lymphs (auto) 0.75 L, Nucleated RBC % 0, ESR 21 H, Sodium 137, Potassium 2.5 L*, Chloride 94 L, Carbon Dioxide 25.6, Anion Gap 18 H, BUN 31 H, Creatinine 6.18 H, Estim Creat Clear Calc 12.94 L, Est GFR (MDRD) Non-Af 9 L, BUN/Creatinine Ratio 5.0 L, Glucose 157 H, Hemoglobin A1c 9.3 H, Lactic Acid 2.5 H*, Calcium 8.7, Total Bilirubin 0.44, AST 45 H, ALT 21, Alkaline Phosphatase 85, C-React Prot Ext Range 24.10 H, Total Protein 5.2 L, Albumin 2.8 L, Globulin 2.4, Albumin/Globulin Ratio 1.2, TSH 4.470 H 06/01/25 21:09: Lactic Acid 1.5, Serum Folate 11.50, Ethyl Alcohol < 10.1 06/02/25 00:52: Vitamin B12 1407 H, Free T4 1.20, Free T3 pg/dL 1.8 L 06/02/25 01:24: POC Glucose 172 H 06/02/25 03:21: POC Glucose 171 H 06/02/25 06:15: Triglycerides 307 H, Cholesterol 84, LDL Cholesterol, Calc 7, VLDL Cholesterol 61 H, HDL Cholesterol 16 L, Cholesterol/HDL Ratio 5.17 06/02/25 06:52: POC Glucose 149 H 06/02/25 08:53: WBC 8.5, RBC 2.79 L, Hgb 9.5 L, Hct 28.6 L, MCV 102.5 H, MCH 34.1 H, MCHC 33.2, RDW Std Deviation 58.9 H, RDW Coeff of [place] 15.7 H, Plt Count 213, MPV 11.1, Immature Gran % (Auto) 0.600, Neut % (Auto) 69.2, Lymph % (Auto) 12.1 L, [place] % (Auto) 12.0 H, Eos % (Auto) 5.4 H, Baso % (Auto) 0.7, Absolute Neuts (auto) 5.9, Absolute Lymphs (auto) 1.02, Nucleated RBC % 0, Sodium 136, Potassium 2.8 L, Chloride 95 L, Carbon Dioxide 21.7, Anion Gap 19 H, BUN 34 H, Creatinine 6.76 H, Estim Creat Clear Calc 11.88 L, Est GFR (MDRD) Non-Af 8 L, BUN/Creatinine Ratio 5.1 L, Glucose 182 H, Calcium 8.3, Total Bilirubin 0.48, AST 45 H, ALT 20, Alkaline Phosphatase 77, Total Protein 5.0 L, Albumin 2.8 L, Globulin 2.2, Albumin/Globulin Ratio 1.3 06/02/25 11:21: POC Glucose 152 H Micro: Microbiology 06/02/25 01:00 Mucosa - Nasopharyngeal Respiratory Panel (PCR) - Final Imaging Radiology Impression Lower Extremity CT 06/01/25 21:04 IMPRESSION: No acute or aggressive osseous abnormality. Generalized lower extremity subcutaneous edema and cellulitic changes. No drainable fluid collection/abscess. Reading Location: [id number]
[2025-06-02] MEDS: Norepinephrine 8 MG in 0.9% Normal Saline (250mL Bag) 242 ML 18.8 ML IV (16:00)
--- NOTE | 2025-06-02 16:33 | CASEMGMT ---
TC received from pt's CM through [facility] ([phone]) requesting DC planning update. Update provided at this time. The CM denies further questions or concerns now.
[2025-06-02] MEDS: Vancomycin HCl 1,000 MG in 0.9% Normal Saline (250mL Bag) 250 ML 250 MG IV (19:41)
[2025-06-03] VITALS (57 sets, daily range): BP systolic 71–132; BP diastolic 43–89; PULSE 56–87; RESP 13–22; TEMP 36.3–37.1; O2SAT 94–100; BMI 37.0; BMI 35.9
[2025-06-03] MEDS: Norepinephrine 8 MG in 0.9% Normal Saline (250mL Bag) 242 ML 28.1 ML IV (00:24)
[2025-06-03 05:50] LABS: Hematocrit 26.8 % (40-54); Hemoglobin 9.0 g/dL (13.0-16.5); Immature Granulocytes Count 0.020 X10^3/uL (0.0-0.0); Mean Corp Hgb Conc 33.6 g/dL (32-36); Mean Corpuscular Volume 101.5 fL (80-94); Mean Platelet Vol. 11.7 fl (6.2-12.0); NRBC Flagged by Analyzer 0 % (0-5); Platelet Count 201 K/mm3 (150-450); RBC Distribution Width CV 15.8 % (11.6-14.6); RBC Distribution Width SD 58.7 fl (35.1-43.9); Red Blood Count 2.64 M/mm3 (4.6-6.2); White Blood Count 6.6 K/mm3 (4.4-11.0)
[2025-06-03] MEDS: 0.9% Saline Lock 10 ML Syringe IV ×3 (06:15→11:51)
[2025-06-03 06:52] LABS: Vancomycin, Random Level 28.0 ug/mL (0.0-15.0)
[2025-06-03 06:58] LABS: Anion Gap 19 (5-15); BUN 39 mg/dL (4-19); BUN/Creat Ratio 5.2 RATIO (10-20); Calcium,Total 7.8 mg/dL (7.6-11.0); Carbon Dioxide 20.6 mmol/L (21.0-32.0); Chloride 97 mmol/L (98-108); Estimated Creatinine Clearance 10.54 ml/min (50-250); Glucose 191 mg/dL (70-99); Potassium 3.0 mmol/L (3.3-5.1)
--- NOTE | 2025-06-03 07:36 | PCM.PN.INT ---
Assessment & Plan Assessment/Plan (1) Acute hypotension: PLAN: Plan RECOMMENDATIONS: 1. Continue Levophed to maintain a systolic blood pressure above 90 mmHg. 2. Continue empiric antimicrobials per ID recommendations. 3. Continue scheduled midodrine 3 times daily. 4. Dialysis support per nephrology recommendations. 5. Continue Eliquis per home regimen. 6. Encourage incentive spirometer use and mobilize patient as tolerated. IMPRESSIONS: 1. Septic shock Although there was initial concern for possible underlying sepsis as the precipitating etiology for the patient's hypotension, I do also have to wonder if the hemodynamic compromise is related to the fluid shifts associated with his peritoneal dialysis. The patient was ultimately started on vasopressors due to ongoing hemodynamic instability. There was initial concern for possible volume overload in the setting of renal disease. Therefore, full resuscitative sepsis related fluids were not administered. Given that the patient has reported hypotension on a chronic basis, we will continue scheduled midodrine 3 times daily. In the interim, we will plan to continue empiric antibiotics, pending infectious workup. 2. End-stage renal disease on hemodialysis Continue dialysis support per nephrology recommendations. 3. Paroxysmal atrial fibrillation/history of CVA/diabetes mellitus/anxiety/depression/unspecified seizure disorder Complicates care, management, recovery and prognosis. Continue home medications as indicated. PT/OT to work with the patient. TIME: 33 minutes of critical care time, independent of procedures, was spent addressing the patient's septic shock, end-stage renal disease on hemodialysis, review of all data and collaboration with the care team. Subjective Subjective The patient was seen and examined at the bedside this morning. Events from the last 24 hours have been reviewed. The patient did well yesterday with dialysis. He remains on Levophed at 15 mcg/min to maintain hemodynamic stability. The patient remains on scheduled midodrine, as well. White blood cell count is normal. Hemoglobin was noted to be 9.0 g/dL with a platelet count of 201,000. The patient has no specific complaints this morning. Objective Data Objective Data The patient's most recent lab work, culture data and imaging studies have all been personally reviewed. Blood and urine cultures are pending. Vital Signs: Vital Signs Temp Pulse Resp BP Pulse Ox O2 Del Method O2 Flow Rate 97.4 F L 62 15 114/51 L 100 Nasal Cannula 2 06/03/25 06:00 06/03/25 07:00 06/03/25 07:00 06/03/25 07:00 06/03/25 07:00 06/03/25 07:00 06/03/25 07:00 Oxygen Flow Rate (L/min) 2 Oxygen Delivery Method Nasal Cannula Weight: 250 lb 0.067 oz Body Mass Index (BMI) 37.0 Intake & Output: Intake and Output for Last 24 Hours 06/01/25 06/02/25 06/03/25 23:59 23:59 23:59 Intake Total 1240 / 1240 979.66 / 1007.76 267.85 / 267.85 Output Total 3220 / 3220 Balance 1240 / 1240 -2240.34 / -2212.24 267.85 / 267.85 Lab / Micro Data Attestation: I reviewed the patient's lab results. 06/03/25 04:20 06/03/25 04:20 Labs: Laboratory Results - last 24 hr 06/02/25 03:21: POC Glucose 171 H 06/02/25 08:53: WBC 8.5, RBC 2.79 L, Hgb 9.5 L, Hct 28.6 L, MCV 102.5 H, MCH 34.1 H, MCHC 33.2, RDW Std Deviation 58.9 H, RDW Coeff of Whitney 15.7 H, Plt Count 213, MPV 11.1, Immature Gran % (Auto) 0.600, Neut % (Auto) 69.2, Lymph % (Auto) 12.1 L, [place] % (Auto) 12.0 H, Eos % (Auto) 5.4 H, Baso % (Auto) 0.7, Absolute Neuts (auto) 5.9, Absolute Lymphs (auto) 1.02, Nucleated RBC % 0, Sodium 136, Potassium 2.8 L, Chloride 95 L, Carbon Dioxide 21.7, Anion Gap 19 H, BUN 34 H, Creatinine 6.76 H, Estim Creat Clear Calc 11.88 L, Est GFR (MDRD) Non-Af 8 L, BUN/Creatinine Ratio 5.1 L, Glucose 182 H, Calcium 8.3, Total Bilirubin 0.48, AST 45 H, ALT 20, Alkaline Phosphatase 77, Total Protein 5.0 L, Albumin 2.8 L, Globulin 2.2, Albumin/Globulin Ratio 1.3 06/02/25 11:21: POC Glucose 152 H 06/02/25 16:06: POC Glucose 157 H 06/02/25 21:21: POC Glucose 223 H 06/03/25 04:20: WBC 6.6, RBC 2.64 L, Hgb 9.0 L, Hct 26.8 L, MCV 101.5 H, MCH 34.1 H, MCHC 33.6, RDW Std Deviation 58.7 H, RDW Coeff of Whitney 15.8 H, Plt Count 201, MPV 11.7, Immature Gran % (Auto) 0.300, Neut % (Auto) 69.5, Lymph % (Auto) 11.8 L, [place] % (Auto) 13.0 H, Eos % (Auto) 4.8, Baso % (Auto) 0.6, Absolute Neuts (auto) 4.6, Absolute Lymphs (auto) 0.78 L, Nucleated RBC % 0, Sodium 136, Potassium 3.0 L, Chloride 97 L, Carbon Dioxide 20.6 L, Anion Gap 19 H, BUN 39 H, Creatinine 7.52 H*, Estim Creat Clear Calc 10.54 L, Est GFR (MDRD) Non-Af 7 L, BUN/Creatinine Ratio 5.2 L, Glucose 191 H, Calcium 7.8 06/03/25 06:15: Random Vancomycin 28.0 H Micro: Microbiology 06/02/25 01:00 Mucosa - Nasopharyngeal Respiratory Panel (PCR) - Final Physical Exam Const alert, oriented x3 and no apparent distress General Appearance: cooperative HEENT normocephalic and head/scalp atraumatic Eyes EOMs intact bilaterally, conjunctivae normal and no scleral icterus Neck supple General: trachea midline Chest Chest Narrative: Tunneled dialysis catheter in place. Resp normal respiratory effort Auscultation: Negative for rales, rhonchi or wheezes Cardio regular rate and regular rhythm GI soft to palpation and non-tender GI Narrative: Peritoneal dialysis catheter in place Extremity Extremity Narrative: Left upper extremity AV fistula. Mild lower extremity cellulitic changes and edema Neuro CN's II-XII intact bilaterally, moves all extremities and no focal motor deficits Psych cooperative and affect normal Charges/Coding Procedures Hospitalists Procedures: [id number] Critical Care 1st Hr
[2025-06-03] MEDS: PureFlow B 3K Dialysis Soln 1 BAG 6 BAG PF (08:16)
[2025-06-03] MEDS: 0.9% Normal Saline 1,000 ML IV.SOLN. 1000 ML OPERA.SITE (08:16)
--- NOTE | 2025-06-03 09:33 | PN.HOSP_ITS ---
Subjective Subjective Doing well, feels a bit better today. He had approximately 3.3 L removed yesterday on dialysis and is doing better and breathing better. Will continue to attempt to wean off Levophed Objective Data Objective Data Vital Signs: Vital Signs Temp Pulse Resp BP Pulse Ox O2 Del Method O2 Flow Rate 97.8 F 76 19 H 111/54 L 100 Nasal Cannula 2 06/03/25 07:45 06/03/25 09:26 06/03/25 09:26 06/03/25 09:26 06/03/25 09:26 06/03/25 09:26 06/03/25 09:26 Oxygen Flow Rate (L/min) 2 Oxygen Delivery Method Nasal Cannula Weight: 250 lb 0.067 oz Body Mass Index (BMI) 37.0 Intake & Output: Intake and Output for Last 24 Hours 06/02/25 06/03/25 06/04/25 03:59 03:59 03:59 Intake Total 1353.1 / 1371.9 978.96 / 1007.06 155.45 / 155.45 Output Total 3220 / 3220 Balance 1353.1 / 1371.9 -2241.04 / -2212.94 155.45 / 155.45 Lab / Micro Data 06/03/25 04:20 06/03/25 04:20 Labs: Laboratory Results - last 24 hr 06/02/25 03:21: POC Glucose 171 H 06/02/25 08:53: Sodium 136, Potassium 2.8 L, Chloride 95 L, Carbon Dioxide 21.7, Anion Gap 19 H, BUN 34 H, Creatinine 6.76 H, Estim Creat Clear Calc 11.88 L, Est GFR (MDRD) Non-Af 8 L, BUN/Creatinine Ratio 5.1 L, Glucose 182 H, Calcium 8.3, Total Bilirubin 0.48, AST 45 H, ALT 20, Alkaline Phosphatase 77, Total Protein 5.0 L, Albumin 2.8 L, Globulin 2.2, Albumin/Globulin Ratio 1.3 06/02/25 11:21: POC Glucose 152 H 06/02/25 16:06: POC Glucose 157 H 06/02/25 21:21: POC Glucose 223 H 06/03/25 04:20: WBC 6.6, RBC 2.64 L, Hgb 9.0 L, Hct 26.8 L, MCV 101.5 H, MCH 34.1 H, MCHC 33.6, RDW Std Deviation 58.7 H, RDW Coeff of Whitney 15.8 H, Plt Count 201, MPV 11.7, Immature Gran % (Auto) 0.300, Neut % (Auto) 69.5, Lymph % (Auto) 11.8 L, [place] % (Auto) 13.0 H, Eos % (Auto) 4.8, Baso % (Auto) 0.6, Absolute Neuts (auto) 4.6, Absolute Lymphs (auto) 0.78 L, Nucleated RBC % 0, Sodium 136, Potassium 3.0 L, Chloride 97 L, Carbon Dioxide 20.6 L, Anion Gap 19 H, BUN 39 H, Creatinine 7.52 H*, Estim Creat Clear Calc 10.54 L, Est GFR (MDRD) Non-Af 7 L, B UN/Creatinine Ratio 5.2 L, Glucose 191 H, Calcium 7.8 06/03/25 06:15: Random Vancomycin 28.0 H 06/03/25 08:02: POC Glucose 173 H Micro: Microbiology 06/02/25 01:00 Mucosa - Nasopharyngeal Respiratory Panel (PCR) - Final Physical Exam Narrative General: Alert, Oriented x3, Cooperative, No apparent distress HEENT: Atraumatic, PERRLA, EOMI, Normocephalic Oral: Moist Mucosa Neck: Supple, No JVD Lungs: Diminished, Normal air movement, No rhonchi, No wheeze, No rales Cardiovascular: Regular rate, Regular Rhythm, Normal S1, Normal S2, No murmurs Abdomen: Soft, Non Tender, Non-Distended, No Hepato-splenomegaly Extremities: Edema, Capillary Refill Less than 3 Seconds Skin: Left lower extremity redness Musculoskeletal: No Tenderness to Palpation of Joints or Extremities Neurological: No focal neurological deficits, moves all extremities Psych/Mental Status: Normal Affect, Appropriate Assessment & Plan Assessment/Plan (1) Cellulitis: QUALIFIERS: Site of cellulitis: extremity Site of cellulitis of extremity: lower extremity Laterality: left Qualified Code(s): L03.116 - Cellulitis of left lower limb (2) Sepsis: QUALIFIERS: Sepsis type: sepsis due to unspecified organism S epsis acute organ dysfunction status: without acute organ dysfunction Qualified Code(s): A41.9 - Sepsis, unspecified organism PLAN: Plan 1. Septic shock secondary to left lower extremity cellulitis/hypokalemia ? Continue broad-spectrum antibiotics ? Appreciate post manager assistance as well as nephrology assistance ? Pending ID evaluation ? CT of the left lower extremity was unremarkable with no abscess ? Currently on Levophed will titrate as necessary was given a dose of albumin ? Recheck potassium this morning 2. Paroxysmal A-fib/essential HTN/HLD/history of CVA ? 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 Continue with his amiodarone bolus aspirin and Eliquis though recent research is drawing into question the necessity of an antiplatelet in the setting of anticoagulation ? Continue with Levophed ? Continue with Crestor ? Given his hypotension we will hold torsemide especially since he has need for fluids 3. 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 Sign scale insulin ? Accu-Cheks ? Will monitor make adjustments as necessary ? Appreciate nephrology assistance with dialysis, on admission he was approximately 16 pounds above his dry weight. He had been trying to do peritoneal dialysis versus hemodialysis. 4. Anxiety/depression ? Stable ? Continue with his home medications 5. Suspected seizure disorder ? Continue zonisamide 6. Iron deficiency anemia ? Continue with his iron supplementation ? B12 and folate levels are normal 7. BPH with obstruction ? Stable ? Continue with his home medications 8. GERD ? Stable ? Continue PPI DVT: Michele Charges/Coding Visit Charges Inpatient E&M: 20615 Subs Hosp L2
[2025-06-03] MEDS: Norepinephrine 8 MG in 0.9% Normal Saline (250mL Bag) 242 ML 18.8 ML IV (10:05)
--- NOTE | 2025-06-03 10:22 | PCM.PN.ID ---
Physical Exam Narrative Feeling better, HD this AM, leg feeling better and less sore. No fever. Const alert and no apparent distress General Appearance: cooperative Resp normal air movement and clear to auscultation bilaterally Cardio regular rate and regular rhythm GI soft to palpation, non-tender and non-distended Skin Skin Narrative: L lower leg mild redness and swelling ID ID: Route of nutrition/ use of supplements: [] Nutritional Intake: [] IV Site: [] Wiggins Catheter: [] Assessment & Plan Assessment/Plan (1) Acute hypotension: PLAN: Not clear if hypotension is related to infection. On empiric vanc/zosyn. Had been on peritoneal dialysis recently, but no abd symptoms. LLE with some mild redness, tenderness, serous drainage. Cxs neg so far. Will narrow to cefazolin, plan on home with po abx for short course. Will follow (2) Type 2 diabetes mellitus with hyperglycemia, without long-term current use of insulin: (3) Cellulitis: QUALIFIERS: Site of cellulitis: extremity Site of cellulitis of extremity: lower extremity Laterality: left Qualified Code(s): L03.116 - Cellulitis of left lower limb
[2025-06-03] MEDS: Lactobacillis Acidophilus 1 CAP PO ×3 (12:10→21:03)
[2025-06-03] MEDS: Cholecalciferol (VIT D3) 25 MCG TABLET (1,000 UNITS) 50 MCG PO (12:10)
[2025-06-03] MEDS: APIXABAN 5 MG TABLET PO ×2 (12:11→21:05)
[2025-06-03] MEDS: Magnesium Chloride 64 MG Delay Rel.Tablet PO (12:12)
[2025-06-03] MEDS: Aspirin E.C. 81 MG Tablet PO (12:12)
--- NOTE | 2025-06-03 16:48 | PCM.PN.REN ---
Subjective Subjective s/p HD today Objective Data Objective Data Vital Signs: Vital Signs Temp Pulse Resp BP Pulse Ox O2 Del Method O2 Flow Rate 97.7 F L 67 14 103/55 L 95 Room Air 2 06/03/25 12:06 06/03/25 16:00 06/03/25 16:00 06/03/25 16:00 06/03/25 16:00 06/03/25 16:00 06/03/25 12:06 Oxygen Flow Rate (L/min) 2 Oxygen Delivery Method Room Air Weight: 110 kg Body Mass Index (BMI) 35.9 Intake & Output: Intake and Output for Last 24 Hours 06/01/25 06/02/25 06/03/25 23:59 23:59 23:59 Intake Total 1240 / 1240 979.66 / 1007.76 396.52 / 396.52 Output Total 3220 / 3220 3100 / 3100 Balance 1240 / 1240 -2240.34 / -2212.24 -2703.48 / -2703.48 Lab / Micro Data 06/03/25 04:20 06/03/25 04:20 Labs: Laboratory Results - last 24 hr 06/02/25 16:06: POC Glucose 157 H 06/02/25 21:21: POC Glucose 223 H 06/03/25 04:20: WBC 6.6, RBC 2.64 L, Hgb 9.0 L, Hct 26.8 L, MCV 101.5 H, MCH 34.1 H, MCHC 33.6, RDW Std Deviation 58.7 H, RDW Coeff of Whitney 15.8 H, Plt Count 201, MPV 11.7, Immature Gran % (Auto) 0.300, Neut % (Auto) 69.5, Lymph % (Auto) 11.8 L, [place] % (Auto) 13.0 H, Eos % (Auto) 4.8, Baso % (Auto) 0.6, Absolute Neuts (auto) 4.6, Absolute Lymphs (auto) 0.78 L, Nucleated RBC % 0, Sodium 136, Potassium 3.0 L, Chloride 97 L, Carbon Dioxide 20.6 L, Anion Gap 19 H, BUN 39 H, Creatinine 7.52 H*, Estim Creat Clear Calc 10.54 L, Est GFR (MDRD) Non-Af 7 L, BUN/Creatinine Ratio 5.2 L, Glucose 191 H, Calcium 7.8 06/03/25 06:15: Random Vancomycin 28.0 H 06/03/25 08:02: POC Glucose 173 H 06/03/25 12:22: POC Glucose 125 H Micro: Microbiology 06/02/25 01:00 Mucosa - Nasopharyngeal Respiratory Panel (PCR) - Final Physical Exam Narrative Alert awake oriented x 3 no obvious distress no pallor no icterus no JVD s1s2 no murmurs lungs clear abdomen soft no organomegaly +++ edema Assessment & Plan Assessment/Plan (1) ESRD (end stage renal disease) on dialysis: PLAN: Was on intermittent hemodialysis. Recently switched to peritoneal dialysis about 2 weeks ago. Worsening lower extremity edema, in total he gained about 16 pounds. Likely resulting in lower extremity edema and some redness around. Will need fluid removal. Will start with UF today. For access she has a right IJ tunneled dialysis catheter. He also has a left arm AV fistula which apparently has been cleared by vascular surgery to use. For today will use catheter for UF. We may try fistula later on as needed. UF of about 1 L a day with peritoneal dialysis. He does have significant fluid gains. Does not make much urine. Not sure how it will work out. Will call outpatient dialysis unit. In general he runs low blood pressure. While on hemodialysis his systolic was around 90 systolic. Gets midodrine with dialysis. Currently systolic is around 95 which is not significantly different compared to his baseline reading. Will use midodrine with UF. Discussed with family at bedside 06/03/25. edema better. off levophed. midodrine as needed. called and spoke to outpatient HD unit. will use eicodextran for day dwells. discussed about fluid restriction. continue PD with 2.5 dextrose and eicodextrans. has a left arm AVF as backup
[2025-06-03] MEDS: Cefazolin 1 GM in 0.9% Normal Saline (100mL Bag) 100 ML IV (21:00)
[2025-06-03] MEDS: OLANZapine 5 MG/TAB TAB.RAPDIS PO (21:05)
[2025-06-03] MEDS: Insulin Glargine-YFGN 100 UNIT/ML Pen 10 UNIT SC (21:10)
[2025-06-04] VITALS (39 sets, daily range): BP systolic 86–131; BP diastolic 45–78; PULSE 62–83; RESP 12–19; TEMP 36.9–37; O2SAT 96–99; BMI 36.6
[2025-06-04] MEDS: Norepinephrine 8 MG in 0.9% Normal Saline (250mL Bag) 242 ML 9.4 ML IV (01:53)
[2025-06-04 04:38] LABS: Hematocrit 24.9 % (40-54); Hemoglobin 8.3 g/dL (13.0-16.5); Immature Granulocytes Count 0.020 X10^3/uL (0.0-0.0); Mean Corp Hgb Conc 33.3 g/dL (32-36); Mean Corpuscular Volume 102.9 fL (80-94); Mean Platelet Vol. 10.8 fl (6.2-12.0); NRBC Flagged by Analyzer 0 % (0-5); Platelet Count 178 K/mm3 (150-450); RBC Distribution Width CV 15.9 % (11.6-14.6); RBC Distribution Width SD 60.8 fl (35.1-43.9); Red Blood Count 2.42 M/mm3 (4.6-6.2); White Blood Count 6.0 K/mm3 (4.4-11.0)
[2025-06-04 05:07] LABS: Anion Gap 14 (5-15); BUN 26 mg/dL (4-19); BUN/Creat Ratio 4.8 RATIO (10-20); Calcium,Total 7.4 mg/dL (7.6-11.0); Carbon Dioxide 20.8 mmol/L (21.0-32.0); Chloride 104 mmol/L (98-108); Estimated Creatinine Clearance 14.49 ml/min (50-250); Glucose 160 mg/dL (70-99); Potassium 2.9 mmol/L (3.3-5.1)
--- NOTE | 2025-06-04 07:38 | PCM.PN.INT ---
Assessment & Plan Assessment/Plan (1) Acute hypotension: PLAN: Plan RECOMMENDATIONS: 1. Continue Levophed to maintain a systolic blood pressure above 90 mmHg. 2. Continue empiric antimicrobials per ID recommendations. 3. Continue scheduled midodrine 3 times daily. 4. Dialysis support per nephrology recommendations. 5. Continue Eliquis per home regimen. 6. Encourage incentive spirometer use and mobilize patient as tolerated. IMPRESSIONS: 1. Septic shock Although there was initial concern for possible underlying sepsis as the precipitating etiology for the patient's hypotension, I do also have to wonder if the hemodynamic compromise is related to the fluid shifts associated with his peritoneal dialysis. The patient was ultimately started on vasopressors due to ongoing hemodynamic instability. There was initial concern for possible volume overload in the setting of renal disease. Therefore, full resuscitative sepsis related fluids were not administered. Given that the patient has reported hypotension on a chronic basis, we will continue scheduled midodrine 3 times daily. In the interim, we will plan to continue empiric antibiotics, pending infectious workup. 2. End-stage renal disease on hemodialysis Continue dialysis support per nephrology recommendations. 3. Paroxysmal atrial fibrillation/history of CVA/diabetes mellitus/anxiety/depression/unspecified seizure disorder Complicates care, management, recovery and prognosis. Continue home medications as indicated. PT/OT to work with the patient. TIME: 32 minutes of critical care time, independent of procedures, was spent addressing the patient's septic shock, end-stage renal disease on hemodialysis, review of all data and collaboration with the care team. Subjective Subjective The patient was seen and examined at the bedside this morning. Events from the last 24 hours have been reviewed. The patient is currently afebrile and doing well clinically. His Levophed requirement has been weaned down to 5 mcg/min. The patient was tolerant of dialysis yesterday. White blood cell count is normal. Hemoglobin and platelet count are stable. Potassium is low at 2.9. The patient has no other specific complaints this morning. Objective Data Objective Data The patient's most recent lab work, culture data and imaging studies have all been personally reviewed. Blood and urine cultures are pending. Vital Signs: Vital Signs Temp Pulse Resp BP Pulse Ox O2 Del Method O2 Flow Rate 98.4 F 71 13 104/55 L 98 Room Air 2 06/04/25 05:00 06/04/25 07:00 06/04/25 07:00 06/04/25 07:00 06/04/25 07:00 06/04/25 07:00 06/03/25 12:06 Oxygen Flow Rate (L/min) 2 Oxygen Delivery Method Room Air Weight: 247 lb 5.738 oz Body Mass Index (BMI) 36.6 Intake & Output: Intake and Output for Last 24 Hours 06/02/25 06/03/25 06/04/25 23:59 23:59 23:59 Intake Total 979.66 / 1007.76 640.64 / 642.99 68.15 / 68.15 Output Total 3220 / 3220 3100 / 3100 Balance -2240.34 / -2212.24 -2459.36 / -2457.01 68.15 / 68.15 Lab / Micro Data Attestation: I reviewed the patient's lab results. 06/04/25 04:30 06/04/25 04:30 Labs: Laboratory Results - last 24 hr 06/03/25 08:02: POC Glucose 173 H 06/03/25 12:22: POC Glucose 125 H 06/03/25 17:09: POC Glucose 269 H 06/03/25 21:09: POC Glucose 231 H 06/04/25 04:30: WBC 6.0, RBC 2.42 L, Hgb 8.3 L, Hct 24.9 L, MCV 102.9 H, MCH 34.3 H, MCHC 33.3, RDW Std Deviation 60.8 H, RDW Coeff of Whitney 15.9 H, Plt Count 178, MPV 10.8, Immature Gran % (Auto) 0.300, Neut % (Auto) 71.1 H, Lymph % (Auto) 10.7 L, [place] % (Auto) 11.8 H, Eos % (Auto) 5.3 H, Baso % (Auto) 0.8, Absolute Neuts (auto) 4.3, Absolute Lymphs (auto) 0.64 L, Nucleated RBC % 0, Sodium 138, Potassium 2.9 L, Chloride 104, Carbon Dioxide 20.8 L, Anion Gap 14, BUN 26 H, Creatinine 5.44 H, Estim Creat Clear Calc 14.49 L, Est GFR (MDRD) Non-Af 10 L, BUN/Creatinine Ratio 4.8 L, Glucose 160 H, Calcium 7.4 L Micro: Microbiology 06/02/25 01:00 Mucosa - Nasopharyngeal Respiratory Panel (PCR) - Final Physical Exam Const alert, oriented x3 and no apparent distress General Appearance: cooperative HEENT normocephalic and head/scalp atraumatic Eyes EOMs intact bilaterally, conjunctivae normal and no scleral icterus Neck supple General: trachea midline Chest Chest Narrative: Tunneled dialysis catheter in place. Resp normal respiratory effort Auscultation: Negative for rales, rhonchi or wheezes Cardio regular rate and regular rhythm GI soft to palpation and non-tender GI Narrative: Peritoneal dialysis catheter in place Extremity Extremity Narrative: Left upper extremity AV fistula. Mild lower extremity cellulitic changes and edema Neuro CN's II-XII intact bilaterally, moves all extremities and no focal motor deficits Psych cooperative and affect normal Charges/Coding Procedures Hospitalists Procedures: [id number] Critical Care 1st Hr
[2025-06-04] MEDS: Potassium Chloride Oral Tablet 20 MEQ 60 MEQ PO (08:27)
[2025-06-04] MEDS: Aspirin E.C. 81 MG Tablet PO (08:29)
--- NOTE | 2025-06-04 10:05 | PCM.PN.ID ---
Physical Exam Narrative Feeling better, no fever, leg less sore Const alert and no apparent distress General Appearance: cooperative Resp normal air movement and clear to auscultation bilaterally Cardio regular rate and regular rhythm GI soft to palpation, non-tender and non-distended Extremity General Extremity: edema Skin Skin Narrative: less LLE redness ID ID: Route of nutrition/ use of supplements: [] Nutritional Intake: [] IV Site: [] Wiggins Catheter: [] Assessment & Plan Assessment/Plan (1) Acute hypotension: PLAN: Not clear if hypotension is related to infection. On empiric vanc/zosyn. Had been on peritoneal dialysis recently, but no abd symptoms. LLE with some mild redness, tenderness, serous drainage. Cxs neg so far. Cont cefazolin, plan on home with po keflex 500mg q12h for 5 day course. Will follow (2) Type 2 diabetes mellitus with hyperglycemia, without long-term current use of insulin: (3) Cellulitis: QUALIFIERS: Site of cellulitis: extremity Site of cellulitis of extremity: lower extremity Laterality: left Qualified Code(s): L03.116 - Cellulitis of left lower limb
[2025-06-04] MEDS: Cholecalciferol (VIT D3) 25 MCG TABLET (1,000 UNITS) 50 MCG PO (10:09)
[2025-06-04] MEDS: Magnesium Chloride 64 MG Delay Rel.Tablet PO (10:10)
[2025-06-04] MEDS: APIXABAN 5 MG TABLET PO ×2 (10:10→22:21)
[2025-06-04] MEDS: Lactobacillis Acidophilus 1 CAP PO ×3 (10:11→22:20)
--- NOTE | 2025-06-04 10:26 | PCM.PN.HOSP ---
Subjective Subjective Doing well, no issues overnight Objective Data Objective Data Vital Signs: Vital Signs Temp Pulse Resp BP Pulse Ox O2 Del Method O2 Flow Rate 98.4 F 72 19 H 90/63 97 Room Air 2 06/04/25 08:00 06/04/25 09:00 06/04/25 09:00 06/04/25 09:00 06/04/25 09:00 06/04/25 09:00 06/03/25 12:06 Oxygen Flow Rate (L/min) 2 Oxygen Delivery Method Room Air Weight: 247 lb 5.738 oz Body Mass Index (BMI) 36.6 Intake & Output: Intake and Output for Last 24 Hours 06/03/25 06/04/25 06/05/25 03:59 03:59 03:59 Intake Total 978.96 / 1007.06 558.79 / 568.19 576.4 / 576.4 Output Total 3220 / 3220 3100 / 3100 Balance -2241.04 / -2212.94 -2541.21 / -2531.81 576.4 / 576.4 Lab / Micro Data 06/04/25 04:30 06/04/25 04:30 Labs: Laboratory Results - last 24 hr 06/03/25 12:22: POC Glucose 125 H 06/03/25 17:09: POC Glucose 269 H 06/03/25 21:09: POC Glucose 231 H 06/04/25 04:30: WBC 6.0, RBC 2.42 L, Hgb 8.3 L, Hct 24.9 L, MCV 102.9 H, MCH 34.3 H, MCHC 33.3, RDW Std Deviation 60.8 H, RDW Coeff of Whitney 15.9 H, Plt Count 178, MPV 10.8, Immature Gran % (Auto) 0.300, Neut % (Auto) 71.1 H, Lymph % (Auto) 10.7 L, [place] % (Auto) 11.8 H, Eos % (Auto) 5.3 H, Baso % (Auto) 0.8, Absolute Neuts (auto) 4.3, Absolute Lymphs (auto) 0.64 L, Nucleated RBC % 0, Sodium 138, Potassium 2.9 L, Chloride 104, Carbon Dioxide 20.8 L, Anion Gap 14, BUN 26 H, Creatinine 5.44 H, Estim Creat Clear Calc 14.49 L, Est GFR (MDRD) Non-Af 10 L, BUN/Creatinine Ratio 4.8 L, Glucose 160 H, Calcium 7.4 L 06/04/25 07:58: POC Glucose 164 H Micro: Microbiology 06/02/25 01:00 Mucosa - Nasopharyngeal Respiratory Panel (PCR) - Final Physical Exam Narrative General: Alert, Oriented x3, Cooperative, No apparent distress HEENT: Atraumatic, PERRLA, EOMI, Normocephalic Oral: Moist Mucosa Neck: Supple, No JVD Lungs: Diminished, Normal air movement, No rhonchi, No wheeze, No rales Cardiovascular: Regular rate, Regular Rhythm, Normal S1, Normal S2, No murmurs Abdomen: Soft, Non Tender, Non-Distended, No Hepato-splenomegaly Extremities: Improved edema, Capillary Refill Less than 3 Seconds Skin: Left lower extremity redness Musculoskeletal: No Tenderness to Palpation of Joints or Extremities Neurological: No focal neurological deficits, moves all extremities Psych/Mental Status: Normal Affect, Appropriate Assessment & Plan Assessment/Plan (1) Cellulitis: QUALIFIERS: Site of cellulitis: extremity Site of cellulitis of extremity: lower extremity Laterality: left Qualified Code(s): L03.116 - Cellulitis of left lower limb (2) Sepsis: QUALIFIERS: Sepsis type: sepsis due to unspecified organism Sepsis acute organ dysfunction status: without acute organ dysfunction Qualified Code(s): A41.9 - Sepsis, unspecified organism PLAN: Plan 1. Septic shock secondary to left lower extremity cellulitis/hypokalemia ? Continue broad-spectrum antibiotics ? Appreciate tree faller assistance as well as nephrology assistance ?Appreciate ID evaluation ? CT of the left lower extremity was unremarkable with no abscess ? Currently on Levophed will titrate as necessary, will continue with midodrine ? Recheck potassium this morning 2. Paroxysmal A-fib/essential HTN/HLD/history of CVA ? 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 Continue with his amiodarone bolus aspirin and Eliquis though recent research is drawing into question the necessity of an antiplatelet in the setting of anticoagulation ? Continue with Levophed ? Continue with Crestor ? Given his hypotension we will hold torsemide especially since he has need for fluids 3. 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 Sign scale insulin ? Accu-Cheks ? Will monitor make adjustments as necessary ? Appreciate nephrology assistance with dialysis, on admission he was approximately 16 pounds above his dry weight. He had been trying to do peritoneal dialysis versus hemodialysis. 4. Anxiety/depression ? Stable ? Continue with his home medications 5. Suspected seizure disorder ? Continue zonisamide 6. Iron deficiency anemia ? Continue with his iron supplementation ? B12 and folate levels are normal 7. BPH with obstruction ? Stable ? Continue with his home medications 8. GERD ? Stable ? Continue PPI DVT: Eliquis Charges/Coding Visit Charges Inpatient E&M: 06609 Subs Hosp L2
[2025-06-04] MEDS: 0.9% Saline Lock 10 ML Syringe IV ×3 (12:02→22:15)
--- NOTE | 2025-06-04 14:24 | PN.RENAL_ITS ---
Subjective Subjective no new complaints Objective Data Objective Data Vital Signs: Vital Signs Temp Pulse Resp BP Pulse Ox O2 Del Method O2 Flow Rate 98.4 F 83 16 90/51 L 96 Room Air 2 06/04/25 12:00 06/04/25 13:00 06/04/25 13:00 06/04/25 13:45 06/04/25 13:00 06/04/25 13:00 06/03/25 12:06 Oxygen Flow Rate (L/min) 2 Oxygen Delivery Method Room Air Weight: 112.2 kg Body Mass Index (BMI) 36.6 Intake & Output: Intake and Output for Last 24 Hours 06/02/25 06/03/25 06/04/25 23:59 23:59 23:59 Intake Total 979.66 / 1007.76 640.64 / 642.99 868.59 / 868.59 Output Total 3220 / 3220 3100 / 3100 Balance -2240.34 / -2212.24 -2459.36 / -2457.01 868.59 / 868.59 Lab / Micro Data 06/04/25 04:30 06/04/25 04:30 Labs: Laboratory Results - last 24 hr 06/03/25 17:09: POC Glucose 269 H 06/03/25 21:09: POC Glucose 231 H 06/04/25 04:30: WBC 6.0, RBC 2.42 L, Hgb 8.3 L, Hct 24.9 L, MCV 102.9 H, MCH 34.3 H, MCHC 33.3, RDW Std Deviation 60.8 H, RDW Coeff of Whitney 15.9 H, Plt Count 178, MPV 10.8, Immature Gran % (Auto) 0.300, Neut % (Auto) 71.1 H, Lymph % (Auto) 10.7 L, [place] % (Auto) 11.8 H, Eos % (Auto) 5.3 H, Baso % (Auto) 0.8, Absolute Neuts (auto) 4.3, Absolute Lymphs (auto) 0.64 L, Nucleated RBC % 0, Sodium 138, Potassium 2.9 L, Chloride 104, Carbon Dioxide 20.8 L, Anion Gap 14, BUN 26 H, Creatinine 5.44 H, Estim Creat Clear Calc 14.49 L, Est GFR (MDRD) Non- Af 10 L, BUN/Creatinine Ratio 4.8 L, Glucose 160 H, Calcium 7.4 L 06/04/25 07:58: POC Glucose 164 H 06/04/25 12:03: POC Glucose 172 H Micro: Microbiology 06/02/25 01:00 Mucosa - Nasopharyngeal Respiratory Panel (PCR) - Final Physical Exam Narrative Alert awake oriented x 3 no obvious distress no pallor no icterus no JVD s1s2 no murmurs lungs clear abdomen soft no organomegaly +++ edema Assessment & Plan Assessment/Plan (1) ESRD (end stage renal disease) on dialysis: PLAN: Was on intermittent hemodialysis. Recently switched to peritoneal dialysis about 2 weeks ago. Worsening lower extremity edema, in total he gained about 16 pounds. Likely resulting in lower extremity edema and some redness around. Will need fluid removal. Will start with UF today. For access she has a right IJ tunneled dialysis catheter. He also has a left arm AV fistula which apparently has been cleared by vascular surgery to use. For today will use catheter for UF. We may try fistula later on as needed. UF of about 1 L a day with peritoneal dialysis. He does have significant fluid gains. Does not make much urine. Not sure how it will work out. Will call outpatient dialysis unit. In general he runs low blood pressure. While on hemodialysis his systolic was around 90 systolic. Gets midodrine with dialysis. Currently systolic is around 95 which is not significantly different compared to his baseline reading. Will use midodrine with UF. Discussed with family at bedside 06/03/25. edema better. off levophed. midodrine as needed. called and spoke to outpatient HD unit. will use eicodextran for day dwells. discussed about fluid restriction. continue PD with 2.5 dextrose and eicodextrans. has a left arm AVF as backup 06/04/25. called and spoke to PD clinic. arrangements have been made for continuing PD. HD likely tomorrow while here. usually runs low BP in general
[2025-06-04] MEDS: Cefazolin 1 GM in 0.9% Normal Saline (100mL Bag) 100 ML IV (22:09)
[2025-06-04] MEDS: Insulin Glargine-YFGN 100 UNIT/ML Pen 10 UNIT SC (22:15)
[2025-06-04] MEDS: OLANZapine 5 MG/TAB TAB.RAPDIS PO (22:21)
[2025-06-05] VITALS (30 sets, daily range): BP systolic 93–113; BP diastolic 53–67; PULSE 58–83; RESP 12–19; TEMP 36.3–36.5; O2SAT 95–100; BMI 36.6; BMI 35.9
[2025-06-05] MEDS: 0.9% Saline Lock 10 ML Syringe IV ×4 (04:35→22:12)
[2025-06-05 04:56] LABS: Hematocrit 25.8 % (40-54); Hemoglobin 8.3 g/dL (13.0-16.5); Immature Granulocytes Count 0.030 X10^3/uL (0.0-0.0); Mean Corp Hgb Conc 32.2 g/dL (32-36); Mean Corpuscular Volume 104.0 fL (80-94); Mean Platelet Vol. 11.6 fl (6.2-12.0); NRBC Flagged by Analyzer 0 % (0-5); Platelet Count 185 K/mm3 (150-450); RBC Distribution Width CV 15.9 % (11.6-14.6); RBC Distribution Width SD 60.4 fl (35.1-43.9); Red Blood Count 2.48 M/mm3 (4.6-6.2); White Blood Count 4.6 K/mm3 (4.4-11.0)
[2025-06-05 06:11] LABS: Anion Gap 14 (5-15); BUN 34 mg/dL (4-19); BUN/Creat Ratio 4.8 RATIO (10-20); Calcium,Total 8.0 mg/dL (7.6-11.0); Carbon Dioxide 20.3 mmol/L (21.0-32.0); Chloride 102 mmol/L (98-108); Estimated Creatinine Clearance 11.18 ml/min (50-250); Glucose 124 mg/dL (70-99); Potassium 4.0 mmol/L (3.3-5.1)
[2025-06-05] MEDS: 0.9% Normal Saline 1,000 ML IV.SOLN. 1000 ML OPERA.SITE (07:40)
[2025-06-05] MEDS: PureFlow B 3K Dialysis Soln 1 BAG 6 BAG PF (07:41)
[2025-06-05] MEDS: Epoetin Alfa epbx 10,000 UNIT/ML 20000 UNIT IV (08:19)
--- NOTE | 2025-06-05 08:40 | PN.HOSP_ITS ---
Subjective Subjective Doing better and feels better, edema is down Objective Data Objective Data Vital Signs: Vital Signs Temp Pulse Resp BP Pulse Ox O2 Del Method O2 Flow Rate 97.4 F L 82 15 107/56 L 100 Room Air 2 06/05/25 07:10 06/05/25 08:30 06/05/25 08:30 06/05/25 08:30 06/05/25 08:30 06/05/25 08:30 06/05/25 07:10 Oxygen Flow Rate (L/min) 2 Oxygen Delivery Method Room Air Weight: 247 lb 2.211 oz Body Mass Index (BMI) 36.6 Intake & Output: Intake and Output for Last 24 Hours 06/04/25 06/05/25 06/06/25 03:59 03:59 03:59 Intake Total 558.79 / 568.19 943.04 / 943.04 Output Total 3100 / 3100 Balance -2541.21 / -2531.81 943.04 / 943.04 Lab / Micro Data 06/05/25 04:30 06/05/25 04:30 Labs: Laboratory Results - last 24 hr 06/04/25 12:03: POC Glucose 172 H 06/04/25 16:41: POC Glucose 157 H 06/04/25 21:52: POC Glucose 158 H 06/05/25 04:30: WBC 4.6, RBC 2.48 L, Hgb 8.3 L, Hct 25.8 L, MCV 104.0 H, MCH 33.5 H, MCHC 32.2, RDW Std Deviation 60.4 H, RDW Coeff of Whitney 15.9 H, Plt Count 185, MPV 11.6, Immature Gran % (Auto) 0.600, Neut % (Auto) 60.3, Lymph % (Auto) 14.7 L, [place] % (Auto) 15.1 H, Eos % (Auto) 8.4 H, Baso % (Auto) 0.9, Absolute Neuts (auto) 2.8, Absolute Lymphs (auto) 0.68 L, Nucleated RBC % 0, Sodium 136, Potassium 4.0, Chloride 102, Carbon Dioxide 20.3 L, Anion Gap 14, BUN 34 H, C reatinine 7.05 H, Estim Creat Clear Calc 11.18 L, Est GFR (MDRD) Non-Af 8 L, B UN/Creatinine Ratio 4.8 L, Glucose 124 H, Calcium 8.0 Micro: Microbiology 06/02/25 01:00 Mucosa - Nasopharyngeal Respiratory Panel (PCR) - Final Physical Exam Narrative General: Alert, Oriented x3, Cooperative, No apparent distress HEENT: Atraumatic, PERRLA, EOMI, Normocephalic Oral: Moist Mucosa Neck: Supple, No JVD Lungs: Diminished, Normal air movement, No rhonchi, No wheeze, No rales Cardiovascular: Regular rate, Regular Rhythm, Normal S1, Normal S2, No murmurs Abdomen: Soft, Non Tender, Non-Distended, No Hepato-splenomegaly Extremities: Improved edema, Capillary Refill Less than 3 Seconds Skin: Left lower extremity redness Musculoskeletal: No Tenderness to Palpation of Joints or Extremities Neurological: No focal neurological deficits, moves all extremities Psych/Mental Status: Normal Affect, Appropriate Assessment & Plan Assessment/Plan (1) Cellulitis: QUALIFIERS: Site of cellulitis: extremity Site of cellulitis of extremity: lower extremity Laterality: left Qualified Code(s): L03.116 - Cellulitis of left lower limb (2) Sepsis: QUALIFIERS: Sepsis type: sepsis due to unspecified organism S epsis acute organ dysfunction status: without acute organ dysfunction Qualified Code(s): A41.9 - Sepsis, unspecified organism PLAN: Plan 1. Septic shock secondary to left lower extremity cellulitis/hypokalemia ? Continue broad-spectrum antibiotics ? Appreciate grape cutter assistance as well as nephrology assistance ?Appreciate ID evaluation ? CT of the left lower extremity was unremarkable with no abscess ? Currently on Levophed will titrate as necessary, will continue with midodrine ? He has been off of Levophed for over 24 hours if he is able to remain off after dialysis can transfer him out of the ICU 2. Paroxysmal A-fib/essential HTN/HLD/history of CVA ? 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 Continue with his amiodarone bolus aspirin and Eliquis though recent research is drawing into question the necessity of an antiplatelet in the setting of anticoagulation ? Continue with Levophed ? Continue with Crestor ? Given his hypotension we will hold torsemide especially since he has need for fluids 3. 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 Sign scale insulin ? Accu-Cheks ? Will monitor make adjustments as necessary ? Appreciate nephrology assistance with dialysis, on admission he was approximately 16 pounds above his dry weight. He had been trying to do peritoneal dialysis versus hemodialysis. 4. Anxiety/depression ? Stable ? Continue with his home medications 5. Suspected seizure disorder ? Continue zonisamide 6. Iron deficiency anemia ? Continue with his iron supplementation ? B12 and folate levels are normal 7. BPH with obstruction ? Stable ? Continue with his home medications 8. GERD ? Stable ? Continue PPI DVT: Eliquis Charges/Coding Visit Charges Inpatient E&M: 30291 Subs Hosp L2
[2025-06-05] MEDS: Magnesium Chloride 64 MG Delay Rel.Tablet PO (11:21)
[2025-06-05] MEDS: Cholecalciferol (VIT D3) 25 MCG TABLET (1,000 UNITS) 50 MCG PO (11:22)
[2025-06-05] MEDS: Lactobacillis Acidophilus 1 CAP PO ×4 (11:23→22:06)
[2025-06-05] MEDS: APIXABAN 5 MG TABLET PO ×2 (11:23→22:08)
[2025-06-05] MEDS: Aspirin E.C. 81 MG Tablet PO (11:23)
--- NOTE | 2025-06-05 11:56 | PCM.PN.TICU ---
Objective Data Objective Data Vital Signs: Vital Signs Last response Temperature 36.5 C L 06/05/25 11:09 Temperature Source Temporal 06/05/25 11:09 Pulse Rate 70 06/05/25 11:09 Pulse Strength Normal (2+) 06/05/25 10:00 Respiratory Rate 17 06/05/25 11:09 Respiratory Effort Normal, Non-Labored 06/05/25 11:09 Respiratory Depth Normal 06/05/25 11:09 Respiratory Pattern Normal 06/05/25 11:09 Blood Pressure 110/62 06/05/25 11:09 Blood Pressure Mean 78 06/05/25 11:09 Blood Pressure Source Monitor 06/05/25 11:09 Blood Pressure Position Semi-Fowlers 06/05/25 11:09 Blood Pressure Location Right Arm 06/05/25 11:09 Pulse Ox 99 06/05/25 11:09 Oxygen Delivery Method Room Air 06/05/25 11:09 Oxygen Flow Rate (L/min) 2 06/05/25 07:10 I&O: I&O Last 24 Hours 06/04/25 06/04/25 06/05/25 11:59 23:59 11:59 Intake Total 626.68 / 973.59 346.91 / 973.59 Output Total 2099 / 2099 Balance 626.68 / 973.59 346.91 / 973.59 -2100 / -2099 I&O: Total Stay 06/01/25 16:34 thru 06/05/25 11:09 Intake Total 3833.89 Output Total 8420 Balance -4586.11 Current Meds Ordered / Administered: Current meds ordered / Administered Generic Name Dose Route Start Last Admin Trade Name Wilson PRN Reason Stop Dose Admin Acetaminophen 1,000 mg 06/02/25 00:19 Acetaminophen 500 Mg Tablet PO Q8H PRN PRN Pain 1-10 or Fever Amiodarone HCl 100 mg 06/02/25 00:19 06/05/25 11:24 Amiodarone 200 Mg Tablet PO 100 mg BID FRANCINE Administration Apixaban 5 mg 06/02/25 00:19 06/05/25 11:23 Apixaban 5 Mg Tablet PO 5 mg BID FRANCINE Administration Ascorbic Acid 1,000 mg 06/02/25 12:00 06/05/25 11:20 Ascorbic Acid 500 Mg Tablet PO 1,000 mg LUNCH FRANCINE Administration Aspirin 81 mg 06/02/25 08:00 06/05/25 11:23 Aspirin E.C. 81 Mg Tablet PO 81 mg BREAKFAST FRANCINE Administration Atorvastatin Calcium 40 mg 06/02/25 00:19 06/04/25 22:21 Atorvastatin Calcium 40 Mg Tablet PO 40 mg QHS FRANCINE Administration Buspirone HCl 15 mg 06/02/25 00:19 06/05/25 05:22 Buspirone 15 Mg Tablet PO 15 mg TID [facility] Administration Calamine/Phenol 1 applic 06/04/25 22:00 06/05/25 05:22 Menthol/Lanolin/Calamine/Znox 113 Gm Tube TOPICAL 1 applic TID [facility] Administration Protocol Cholecalciferol 50 mcg 06/02/25 10:00 06/05/25 11:22 Cholecalciferol (Vit D3) 25 Mcg Tablet (1,000 Units) PO 50 mcg DAILY [facility] Administration Docusate Sodium 100 mg 06/02/25 00:19 Docusate Sodium 100 Mg Capsule PO BID PRN PRN CONSTIPATION Fenofibrate 145 mg 06/02/25 10:00 06/05/25 11:22 Fenofibrate 145 Mg Tablet PO 145 mg DAILY FRANCINE Administration Ferrous Sulfate 325 mg 06/02/25 12:00 06/05/25 11:24 Ferrous Sulfate 325 Mg Tablet PO 325 mg DAILY@1200 [facility] Administration Finasteride 5 mg 06/02/25 00:19 06/04/25 22:25 Finasteride 5 Mg Tablet PO 5 mg QHS [facility] Administration Glucose 15 gm 06/02/25 01:12 Glucose Oral Gel 15 Gm Tube PO Q15M PRN HYPOGLYCEMIA Hemodialysis Solution 6 bag 06/05/25 07:00 06/05/25 07:41 Pureflow B 3k Dialysis Soln 1 Bag PF 06/05/25 18:55 6 bag UD [facility] Administration Protocol Heparin Sodium (Porcine) 1,000 - 3,000 units 06/05/25 06:55 06/05/25 10:55 Heparin 10,000 Units/10 Ml Vial IV 06/05/25 18:55 1,800 units X1 PRN Administration HD catheter closing Sodium Chloride 250 mls @ 15 mls/hr 06/02/25 00:35 IV .[id number] PRN Saline Flush Sodium Chloride 250 mls @ 15 mls/hr 06/02/25 00:35 IV .[id number] PRN Additional IVPB Infusion Sodium Chloride 250 mls @ 15 mls/hr 06/02/25 20:30 IV .[id number] PRN Saline Flush Sodium Chloride 250 mls @ 15 mls/hr 06/02/25 20:30 IV .[id number] PRN Additional IVPB Infusion Cefazolin Sodium 1 gm/ Sodium 105 mls @ 200 mls/hr 06/03/25 22:00 06/04/25 22:56 Chloride IV Infused QHS FRANCINE Infusion Norepinephrine Bitartrate 8 mg 250 mls @ 9.375 mls/hr 06/04/25 12:20 06/04/25 12:38 / Sodium Chloride IV Not Given .[id number] FRANCINE Protocol 5 MCG/MIN Insulin Glargine 10 unit 06/02/25 00:19 06/04/25 22:15 Insulin Glargine-Yfgn 100 Unit/Ml Pen SC 10 unit QHS FRANCINE Administration Insulin Human Lispro 0 unit 06/03/25 17:11 06/05/25 11:38 Insulin Lispro 100 Unit/Ml Insuln.Pen SC Not Given TIDAC [facility] Protocol Magnesium Chloride 64 mg 06/02/25 10:00 06/05/25 11:21 Magnesium Chloride 64 Mg Delay Rel.Tablet PO 64 mg DAILY FRANCINE Administration Midodrine 10 mg 06/02/25 10:14 06/05/25 11:20 Midodrine Hcl 5 Mg Tablet PO 10 mg TIDCM FRANCINE Administration Morphine Sulfate 2 mg 06/01/25 20:47 Morphine 2 Mg/Ml Syringe IV Q6H PRN PRN Pain Score 6-10 Multivitamins 1 tablet 06/02/25 08:00 06/05/25 11:22 Multivitamins,Therapeutic Tablet PO 1 tablet DAILYCM FRANCINE Administration Olanzapine 5 mg 06/02/25 00:19 06/04/25 22:21 Olanzapine 5 Mg/Tab Tab.Rapdis PO 5 mg QHS FRANCINE Administration Ondansetron HCl 4 mg 06/02/25 00:19 06/05/25 04:24 Ondansetron 4 Mg/2 Ml Vial IV 4 mg Q4H PRN PRN Administration NAUSEA/VOMITING Pantoprazole Sodium 40 mg 06/02/25 10:00 06/05/25 11:23 Pantoprazole Sodium 40 Mg Tablet PO 40 mg DAILY FRANCINE Administration Polyethylene Glycol 17 gm 06/02/25 01:15 Polyethylene Glycol 3350 17 Gm Packet GT DAILY PRN PRN constipation Sertraline HCl 100 mg 06/02/25 10:00 06/05/25 11:24 Sertraline 100 Mg Tablet PO 100 mg DAILY FRANCINE Administration Sodium Chloride 10 - 40 ml 06/02/25 00:35 06/05/25 10:55 0.9% Saline Lock 10 Ml Syringe IV 20 ml UD PRN Administration SALINE FLUSH Sodium Chloride 10 - 40 ml 06/02/25 20:30 0.9% Saline Lock 10 Ml Syringe IV UD PRN SALINE FLUSH Sodium Chloride 1,000 ml 06/05/25 06:55 06/05/25 07:40 0.9% Normal Saline 1,000 Ml Iv.Soln. OPERA.SITE 06/05/25 18:55 1,000 ml X1 FRANCINE Administration Sodium Chloride 200 ml 06/05/25 06:55 0.9% Normal Saline 1,000 Ml Iv.Soln. IV 06/05/25 18:55 X1 PRN to maintain SBP >90mmHg during Dialysis Tamsulosin HCl 0.4 mg 06/02/25 00:19 06/05/25 11:21 Tamsulosin Hcl 0.4 Mg Capsule PO 0.4 mg BID FRANCINE Administration Zonisamide 50 mg 06/02/25 10:00 06/05/25 11:24 Zonisamide 50 Mg Capsule PO 50 mg BID FRANCINE Administration Lab / Micro Data Attestation: I reviewed the patient's lab results. 06/05/25 04:30 06/05/25 04:30 Labs: Laboratory Results - last 24 hr 06/04/25 12:03: POC Glucose 172 H 06/04/25 16:41: POC Glucose 157 H 06/04/25 21:52: POC Glucose 158 H 06/05/25 04:30: WBC 4.6, RBC 2.48 L, Hgb 8.3 L, Hct 25.8 L, MCV 104.0 H, MCH 33.5 H, MCHC 32.2, RDW Std Deviation 60.4 H, RDW Coeff of Whitney 15.9 H, Plt Count 185, MPV 11.6, Immature Gran % (Auto) 0.600, Neut % (Auto) 60.3, Lymph % (Auto) 14.7 L, [place] % (Auto) 15.1 H, Eos % (Auto) 8.4 H, Baso % (Auto) 0.9, Absolute Neuts (auto) 2.8, Absolute Lymphs (auto) 0.68 L, Nucleated RBC % 0, Sodium 136, Potassium 4.0, Chloride 102, Carbon Dioxide 20.3 L, Anion Gap 14, BUN 34 H, Creatinine 7.05 H, Estim Creat Clear Calc 11.18 L, Est GFR (MDRD) Non-Af 8 L, BUN/Creatinine Ratio 4.8 L, Glucose 124 H, Calcium 8.0 06/05/25 08:31: POC Glucose 106 06/05/25 11:37: POC Glucose 108 H Assessment and Plan . Assessment and plan: [facility] Medical Records Department [address] [facility] [place] [address] Progress Note - Loop Sewer 06/04/25 0738 MR#: [id number] Acct: [id number] Name: VIVI SAINI Rep #: [id number] : 1950 75 From: Desmond Hodge DO PCP: Dr. Lester Jarvis MD Status: ADM IN Location: ICU [id number] Assessment & Plan IMPRESSIONS: 1. Septic shock - cultures NGTD - unclear if primarily sepsis related derangements in hemodynamics vs fluid shifts related to PD - globally improved - can de-escalate antimicrobials 2. End-stage renal disease on hemodialysis Continue dialysis support per nephrology recommendations. 3. Paroxysmal atrial fibrillation/history of CVA/diabetes mellitus/anxiety/depression/unspecified seizure disorder Complicates care, management, recovery and prognosis. Continue home medications as indicated. PT/OT to work with the patient. RECOMMENDATIONS: 1. Continue empiric antimicrobials per ID recommendations. 3. Continue scheduled midodrine 3 times daily. 4. Dialysis support per nephrology recommendations. 5. Continue Eliquis per home regimen. 6. Encourage incentive spirometer use and mobilize patient as tolerated. Will sign off but am available for future needs Critical Care Time: 35 minutes The entirety of this encounter was done via Telemedicine Physical Exam Const alert, oriented x3, no apparent distress and no limitations General Appearance: cooperative and comfortable Orientation / Consciousness: awake, oriented to person, oriented to place and oriented to time Exam Limitations: no limitations HEENT normocephalic, head/scalp atraumatic and nasal mucous membranes and turbinates normal Head and Scalp: normal to inspection and normocephalic Mouth: oral and palatal mucosa normal Eyes General Eye: normal appearance of both eyes Pupil: PERRL Neck General: normal visual inspection Resp normal respiratory effort Effort and Inspection: able to speak in complete sentences Subjective Subjective Appears quite good, weaned off NE yesterday and completed dialysis earlier without need for additional vasopressor support. Denies new complaints.
--- NOTE | 2025-06-05 14:40 | NURSING ---
Report called to [facility] [employer]NA[facility] OPERATOR[facility]. Spouse at bedside and aware of transfer to PCU.
--- NOTE | 2025-06-05 17:23 | PN.RENAL_ITS ---
Subjective Subjective had HD today feels well TDC and PD catheter in place family at bedside Objective Data Objective Data Vital Signs: Vital Signs Temp Pulse Resp BP Pulse Ox O2 Del Method O2 Flow Rate 97.5 F L 75 18 98/53 L 100 Room Air 2 06/05/25 14:55 06/05/25 14:55 06/05/25 14:55 06/05/25 14:55 06/05/25 14:55 06/05/25 14:55 06/05/25 07:10 Oxygen Flow Rate (L/min) 2 Oxygen Delivery Method Room Air Weight: 109.9 kg Body Mass Index (BMI) 35.9 Intake & Output: Intake and Output for Last 24 Hours 06/03/25 06/04/25 06/05/25 23:59 23:59 23:59 Intake Total 640.64 / 642.99 973.59 / 973.59 Output Total 3100 / 3100 2100 / 2100 Balance -2459.36 / -2457.01 973.59 / 973.59 -2100 / -2100 Lab / Micro Data 06/05/25 04:30 06/05/25 04:30 Labs: Laboratory Results - last 24 hr 06/04/25 21:52: POC Glucose 158 H 06/05/25 04:30: WBC 4.6, RBC 2.48 L, Hgb 8.3 L, Hct 25.8 L, MCV 104.0 H, MCH 33.5 H, MCHC 32.2, RDW Std Deviation 60.4 H, RDW Coeff of Whitney 15.9 H, Plt Count 185, MPV 11.6, Immature Gran % (Auto) 0.600, Neut % (Auto) 60.3, Lymph % (Auto) 14.7 L, [place] % (Auto) 15.1 H, Eos % (Auto) 8.4 H, Baso % (Auto) 0.9, Absolute Neuts (auto) 2.8, Absolute Lymphs (auto) 0.68 L, Nucleated RBC % 0, Sodium 136, Potassium 4.0, Chloride 102, Carbon Dioxide 20.3 L, Anion Gap 14, BUN 34 H, C reatinine 7.05 H, Estim Creat Clear Calc 11.18 L, Est GFR (MDRD) Non-Af 8 L, B UN/Creatinine Ratio 4.8 L, Glucose 124 H, Calcium 8.0 06/05/25 08:31: POC Glucose 106 06/05/25 11:37: POC Glucose 108 H 06/05/25 16:05: POC Glucose 151 H Micro: Microbiology 06/01/25 17:14 Blood Culture (Wb) - Anticubital Right Blood Culture - Preliminary No growth in 48 hours. 06/01/25 17:14 Blood Culture (Wb) - Anticubital Right Blood Culture - Preliminary No growth in 48 hours. 06/02/25 15:35 Blood Culture (Wb) - Central Line Blood Culture - Preliminary No growth in 48 hours. 06/02/25 01:00 Mucosa - Nasopharyngeal Respiratory Panel (PCR) - Final Physical Exam Narrative Alert awake oriented x 3 no obvious distress no pallor no icterus no JVD s1s2 no murmurs lungs clear abdomen soft no organomegaly ++ edema Assessment & Plan Assessment/Plan (1) ESRD (end stage renal disease) on dialysis: PLAN: Was on intermittent hemodialysis. Recently switched to peritoneal dialysis about 2 weeks ago. Worsening lower extremity edema, in total he gained about 16 pounds. Likely resulting in lower extremity edema and some redness around. Will need fluid removal. Will start with UF today. For access she has a right IJ tunneled dialysis catheter. He also has a left arm AV fistula which apparently has been cleared by vascular surgery to use. For today will use catheter for UF. We may try fistula later on as needed. UF of about 1 L a day with peritoneal dialysis. He does have significant fluid gains. Does not make much urine. Not sure how it will work out. Will call outpatient dialysis unit. In general he runs low blood pressure. While on hemodialysis his systolic was around 90 systolic. Gets midodrine with dialysis. Currently systolic is around 95 which is not significantly different compared to his baseline reading. Will use midodrine with UF. Discussed with family at bedside 06/03/25. edema better. off levophed. midodrine as needed. called and spoke to outpatient HD unit. will use eicodextran for day dwells. discussed about fluid restriction. continue PD with 2.5 dextrose and eicodextrans. has a left arm AVF as backup 06/04/25. called and spoke to PD clinic. arrangements have been made for continuing PD. HD likely tomorrow while here. usually runs low BP in general 06/05/25 -tolerated HD well today -resume PD on discharge
--- NOTE | 2025-06-05 20:33 | CPS ---
Patient refused PAP therapy for night time use.
[2025-06-05] MEDS: OLANZapine 5 MG/TAB TAB.RAPDIS PO (22:05)
[2025-06-05] MEDS: Insulin Glargine-YFGN 100 UNIT/ML Pen 10 UNIT SC (22:11)
[2025-06-05] MEDS: Cefazolin 1 GM in 0.9% Normal Saline (100mL Bag) 100 ML IV (22:25)
[2025-06-06 03:12] VITALS: BMI 36.6
[2025-06-06 05:38] VITALS: BP 124/66; PULSE 72; RESP 18; TEMP 36.3; O2SAT 98
[2025-06-06 06:12] LABS: Hematocrit 27.5 % (40-54); Hemoglobin 8.7 g/dL (13.0-16.5); Immature Granulocytes Count 0.030 X10^3/uL (0.0-0.0); Mean Corp Hgb Conc 31.6 g/dL (32-36); Mean Corpuscular Volume 105.4 fL (80-94); Mean Platelet Vol. 11.6 fl (6.2-12.0); NRBC Flagged by Analyzer 0 % (0-5); Platelet Count 180 K/mm3 (150-450); RBC Distribution Width CV 15.9 % (11.6-14.6); RBC Distribution Width SD 61.7 fl (35.1-43.9); Red Blood Count 2.61 M/mm3 (4.6-6.2); White Blood Count 3.9 K/mm3 (4.4-11.0)
[2025-06-06 06:44] LABS: Anion Gap 13 (5-15); BUN 25 mg/dL (4-19); BUN/Creat Ratio 4.5 RATIO (10-20); Calcium,Total 8.0 mg/dL (7.6-11.0); Carbon Dioxide 20.6 mmol/L (21.0-32.0); Chloride 103 mmol/L (98-108); Estimated Creatinine Clearance 14.11 ml/min (50-250); Glucose 166 mg/dL (70-99); Potassium 3.7 mmol/L (3.3-5.1)
[2025-06-06 08:45] VITALS: BP 100/50; PULSE 68; RESP 18; TEMP 36.6; O2SAT 98
[2025-06-06] MEDS: Aspirin E.C. 81 MG Tablet PO (09:27)
[2025-06-06] MEDS: Cholecalciferol (VIT D3) 25 MCG TABLET (1,000 UNITS) 50 MCG PO (09:28)
[2025-06-06] MEDS: APIXABAN 5 MG TABLET PO ×2 (09:29→20:57)
[2025-06-06] MEDS: Lactobacillis Acidophilus 1 CAP PO ×4 (09:29→20:55)
[2025-06-06] MEDS: Magnesium Chloride 64 MG Delay Rel.Tablet PO (09:29)
--- NOTE | 2025-06-06 10:56 | PN.HOSP_ITS ---
Subjective Subjective Doing well, concerned that he has a rash on his right hand not very visible and not itchy Objective Data Objective Data Vital Signs: Vital Signs Temp Pulse Resp BP Pulse Ox O2 Del Method O2 Flow Rate 97.8 F 68 18 100/50 L 98 Room Air 2 06/06/25 08:45 06/06/25 08:45 06/06/25 08:45 06/06/25 08:45 06/06/25 08:45 06/06/25 08:49 06/06/25 05:38 Oxygen Flow Rate (L/min) 2 Oxygen Delivery Method Room Air Weight: 247 lb 12.793 oz Body Mass Index (BMI) 36.6 Intake & Output: Intake and Output for Last 24 Hours 06/05/25 06/06/25 06/07/25 03:59 03:59 03:59 Intake Total 943.04 / 943.04 465 / 465 60 / 60 Output Total 2100 / 2100 Balance 943.04 / 943.04 -1635 / -1635 60 / 60 Lab / Micro Data 06/06/25 05:26 06/06/25 05:26 Labs: Laboratory Results - last 24 hr 06/05/25 11:37: POC Glucose 108 H 06/05/25 16:05: POC Glucose 151 H 06/05/25 21:58: POC Glucose 217 H 06/06/25 05:26: WBC 3.9 L, RBC 2.61 L, Hgb 8.7 L, Hct 27.5 L, MCV 105.4 H, MCH 33.3 H, MCHC 31.6 L, RDW Std Deviation 61.7 H, RDW Coeff of Whitney 15.9 H, Plt Count 180, MPV 11.6, Immature Gran % (Auto) 0.800, Neut % (Auto) 57.4, Lymph % (Auto) 15.6 L, [place] % (Auto) 15.9 H, Eos % (Auto) 9.0 H, Baso % (Auto) 1.3 H, Absolute Neuts (auto) 2.3, Absolute Lymphs (auto) 0.61 L, Nucleated RBC % 0, Sodium 136, Potassium 3.7, Chloride 103, Carbon Dioxide 20.6 L, Anion Gap 13, B UN 25 H, Creatinine 5.59 H, Estim Creat Clear Calc 14.11 L, Est GFR (MDRD) Non- Af 10 L, BUN/Creatinine Ratio 4.5 L, Glucose 166 H, Calcium 8.0 06/06/25 06:22: POC Glucose 171 H Micro: Microbiology 06/01/25 17:14 Blood Culture (Wb) - Anticubital Right Blood Culture - Preliminary No growth in 48 hours. 06/01/25 17:14 Blood Culture (Wb) - Anticubital Right Blood Culture - Preliminary No growth in 48 hours. 06/02/25 15:35 Blood Culture (Wb) - Central Line Blood Culture - Preliminary No growth in 48 hours. 06/02/25 01:00 Mucosa - Nasopharyngeal Respiratory Panel (PCR) - Final Physical Exam Narrative General: Alert, Oriented x3, Cooperative, No apparent distress HEENT: Atraumatic, PERRLA, EOMI, Normocephalic Oral: Moist Mucosa Neck: Supple, No JVD Lungs: Diminished, Normal air movement, No rhonchi, No wheeze, No rales Cardiovascular: Regular rate, Regular Rhythm, Normal S1, Normal S2, No murmurs Abdomen: Soft, Non Tender, Non-Distended, No Hepato-splenomegaly Extremities: Improved edema, Capillary Refill Less than 3 Seconds Skin: Left lower extremity redness resolved Musculoskeletal: No Tenderness to Palpation of Joints or Extremities Neurological: No focal neurological deficits, moves all extremities Psych/Mental Status: Normal Affect, Appropriate Assessment & Plan Assessment/Plan (1) Cellulitis: QUALIFIERS: Site of cellulitis: extremity Site of cellulitis of extremity: lower extremity Laterality: left Qualified Code(s): L03.116 - Cellulitis of left lower limb (2) Sepsis: QUALIFIERS: Sepsis type: sepsis due to unspecified organism S epsis acute organ dysfunction status: without acute organ dysfunction Qualified Code(s): A41.9 - Sepsis, unspecified organism PLAN: Plan 1. Septic shock secondary to left lower extremity cellulitis/hypokalemia ?Continue with Ancef ? Appreciate emergency medical services coordinator assistance as well as nephrology assistance ?Appreciate ID evaluation ? CT of the left lower extremity was unremarkable with no abscess ? Will attempt to wean midodrine as able ? PT/OT 2. Paroxysmal A-fib/essential HTN/HLD/history of CVA ? 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 Continue with his amiodarone plus aspirin and Eliquis though recent research is drawing into question the necessity of an antiplatelet in the setting of anticoagulation ? Continue with Crestor ? Given his hypotension we will hold torsemide 3. 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 Sign scale insulin ? Accu-Cheks ? Will monitor make adjustments as necessary ? Appreciate nephrology assistance with dialysis, on admission he was approximately 16 pounds above his dry weight. He had been trying to do peritoneal dialysis versus hemodialysis. ? Will continue to encourage him to transfer to hemodialysis 4. Anxiety/depression ? Stable ? Continue with his home medications 5. Suspected seizure disorder ? Continue zonisamide 6. Iron deficiency anemia ? Continue with his iron supplementation ? B12 and folate levels are normal 7. BPH with obstruction ? Stable ? Continue with his home medications 8. GERD ? Stable ? Continue PPI DVT: Michele Charges/Coding Visit Charges Inpatient E&M: 01800 Subs Hosp L2
[2025-06-06 14:44] VITALS: BP 102/58; PULSE 61; RESP 18; TEMP 36.4; O2SAT 100
--- NOTE | 2025-06-06 15:16 | PN.RENAL_ITS ---
Subjective Subjective sitting in chair, no acute distress Objective Data Objective Data Vital Signs: Vital Signs Temp Pulse Resp BP Pulse Ox O2 Del Method O2 Flow Rate 97.6 F L 61 18 102/58 L 100 Room Air 2 06/06/25 14:44 06/06/25 14:44 06/06/25 14:44 06/06/25 14:44 06/06/25 14:44 06/06/25 14:44 06/06/25 05:38 Oxygen Flow Rate (L/min) 2 Oxygen Delivery Method Room Air Weight: 112.4 kg Body Mass Index (BMI) 36.6 Intake & Output: Intake and Output for Last 24 Hours 06/04/25 06/05/25 06/06/25 23:59 23:59 23:59 Intake Total 973.59 / 973.59 465 / 465 660 / 660 Output Total 2100 / 2100 Balance 973.59 / 973.59 -1635 / -1635 660 / 660 Lab / Micro Data 06/06/25 05:26 06/06/25 05:26 Labs: Laboratory Results - last 24 hr 06/05/25 16:05: POC Glucose 151 H 06/05/25 21:58: POC Glucose 217 H 06/06/25 05:26: WBC 3.9 L, RBC 2.61 L, Hgb 8.7 L, Hct 27.5 L, MCV 105.4 H, MCH 33.3 H, MCHC 31.6 L, RDW Std Deviation 61.7 H, RDW Coeff of Whitney 15.9 H, Plt Count 180, MPV 11.6, Immature Gran % (Auto) 0.800, Neut % (Auto) 57.4, Lymph % (Auto) 15.6 L, [place] % (Auto) 15.9 H, Eos % (Auto) 9.0 H, Baso % (Auto) 1.3 H, Absolute Neuts (auto) 2.3, Absolute Lymphs (auto) 0.61 L, Nucleated RBC % 0, Sodium 136, Potassium 3.7, Chloride 103, Carbon Dioxide 20.6 L, Anion Gap 13, B UN 25 H, Creatinine 5.59 H, Estim Creat Clear Calc 14.11 L, Est GFR (MDRD) Non- Af 10 L, BUN/Creatinine Ratio 4.5 L, Glucose 166 H, Calcium 8.0 06/06/25 06:22: POC Glucose 171 H 06/06/25 12:05: POC Glucose 167 H Micro: Microbiology 06/01/25 17:14 Blood Culture (Wb) - Anticubital Right Blood Culture - Preliminary No growth in 48 hours. 06/01/25 17:14 Blood Culture (Wb) - Anticubital Right Blood Culture - Preliminary No growth in 48 hours. 06/02/25 15:35 Blood Culture (Wb) - Central Line Blood Culture - Preliminary No growth in 48 hours. 06/02/25 01:00 Mucosa - Nasopharyngeal Respiratory Panel (PCR) - Final Physical Exam Narrative Alert awake oriented x 3 no obvious distress no pallor no icterus no JVD s1s2 no murmurs lungs clear abdomen soft no organomegaly ++ edema upper and lower extremities Assessment & Plan Assessment/Plan (1) ESRD (end stage renal disease) on dialysis: PLAN: Was on intermittent hemodialysis. Recently switched to peritoneal dialysis about 2 weeks ago. Worsening lower extremity edema, in total he gained about 16 pounds. Likely resulting in lower extremity edema and some redness around. Will need fluid removal. Will start with UF today. For access she has a right IJ tunneled dialysis catheter. He also has a left arm AV fistula which apparently has been cleared by vascular surgery to use. For today will use catheter for UF. We may try fistula later on as needed. UF of about 1 L a day with peritoneal dialysis. He does have significant fluid gains. Does not make much urine. Not sure how it will work out. Will call outpatient dialysis unit. In general he runs low blood pressure. While on hemodialysis his systolic was around 90 systolic. Gets midodrine with dialysis. Currently systolic is around 95 which is not significantly different compared to his baseline reading. Will use midodrine with UF. Discussed with family at bedside 06/03/25. edema better. off levophed. midodrine as needed. called and spoke to outpatient HD unit. will use eicodextran for day dwells. discussed about fluid restriction. continue PD with 2.5 dextrose and eicodextrans. has a left arm AVF as backup 06/04/25. called and spoke to PD clinic. arrangements have been made for continuing PD. HD likely tomorrow while here. usually runs low BP in general 06/05/25 -tolerated HD well today -resume PD on discharge 06/06 -HD tomorrow -UF as tolerates -outpatient PD with Dr. Sanchez
[2025-06-06 20:48] VITALS: BP 103/54; PULSE 65; RESP 18; TEMP 36.2; O2SAT 99
[2025-06-06] MEDS: Insulin Glargine-YFGN 100 UNIT/ML Pen 10 UNIT SC (20:57)
[2025-06-06] MEDS: OLANZapine 5 MG/TAB TAB.RAPDIS PO (21:00)
[2025-06-06] MEDS: Cefazolin 1 GM/50 ML BAG IV (21:07)
[2025-06-06] MEDS: 0.9% Saline Lock 10 ML Syringe IV (21:09)
[2025-06-06 23:39] VITALS: BP 115/57; PULSE 69; RESP 18; TEMP 36.4; O2SAT 100
[2025-06-07] VITALS (12 sets, daily range): BP systolic 98–129; BP diastolic 55–72; PULSE 62–70; RESP 13–18; TEMP 36.3–36.7; O2SAT 97–100; BMI 36.5; BMI 35.5
--- NOTE | 2025-06-07 09:01 | PCM.PN.HOSP ---
Subjective Subjective Doing well, edema is improved and his left arm swelling is starting to go down Objective Data Objective Data Vital Signs: Vital Signs Temp Pulse Resp BP Pulse Ox O2 Del Method O2 Flow Rate 97.4 F L 63 18 129/72 H 100 Nasal Cannula 2 06/07/25 04:50 06/07/25 04:50 06/07/25 04:50 06/07/25 04:50 06/07/25 04:50 06/07/25 04:50 06/07/25 04:50 Oxygen Flow Rate (L/min) 2 Oxygen Delivery Method Nasal Cannula Weight: 246 lb 7.629 oz Body Mass Index (BMI) 36.5 Intake & Output: Intake and Output for Last 24 Hours 06/06/25 06/07/25 06/08/25 03:59 03:59 03:59 Intake Total 465 / 465 1310 / 1310 120 / 120 Output Total 2100 / 2100 Balance -1635 / -1635 1310 / 1310 120 / 120 Lab / Micro Data 06/06/25 05:26 06/06/25 05:26 Labs: Laboratory Results - last 24 hr 06/06/25 12:05: POC Glucose 167 H 06/06/25 17:08: POC Glucose 185 H 06/06/25 20:54: POC Glucose 189 H 06/07/25 06:21: POC Glucose 127 H Micro: Microbiology 06/01/25 17:14 Blood Culture (Wb) - Anticubital Right Blood Culture - Final No growth in 5 days. 06/01/25 17:14 Blood Culture (Wb) - Anticubital Right Blood Culture - Final No growth in 5 days. 06/02/25 15:35 Blood Culture (Wb) - Central Line Blood Culture - Preliminary No growth in 48 hours. 06/02/25 01:00 Mucosa - Nasopharyngeal Respiratory Panel (PCR) - Final Physical Exam Narrative General: Alert, Oriented x3, Cooperative, No apparent distress HEENT: Atraumatic, PERRLA, EOMI, Normocephalic Oral: Moist Mucosa Neck: Supple, No JVD Lungs: Diminished, Normal air movement, No rhonchi, No wheeze, No rales Cardiovascular: Regular rate, Regular Rhythm, Normal S1, Normal S2, No murmurs Abdomen: Soft, Non Tender, Non-Distended, No Hepato-splenomegaly Extremities: Improved edema, Capillary Refill Less than 3 Seconds Skin: Left lower extremity redness resolved Musculoskeletal: No Tenderness to Palpation of Joints or Extremities Neurological: No focal neurological deficits, moves all extremities Psych/Mental Status: Normal Affect, Appropriate Assessment & Plan Assessment/Plan (1) Cellulitis: QUALIFIERS: Site of cellulitis: extremity Site of cellulitis of extremity: lower extremity Laterality: left Qualified Code(s): L03.116 - Cellulitis of left lower limb (2) Sepsis: QUALIFIERS: Sepsis type: sepsis due to unspecified organism Sepsis acute organ dysfunction status: without acute organ dysfunction Qualified Code(s): A41.9 - Sepsis, unspecified organism PLAN: Plan 1. Septic shock secondary to left lower extremity cellulitis/hypokalemia ?Continue with Ancef ? Appreciate rn wound assistance as well as nephrology assistance ?Appreciate ID evaluation ? CT of the left lower extremity was unremarkable with no abscess ? Will attempt to wean midodrine as able ? PT/OT, his is planning to come in today and if she is able to assist him with getting out of bed and doing most of his activities of daily living he could potentially be discharged home when ready versus SNF placement 2. Paroxysmal A-fib/essential HTN/HLD/history of CVA ? 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 Continue with his amiodarone plus aspirin and Eliquis though recent research is drawing into question the necessity of an antiplatelet in the setting of anticoagulation ? Continue with Crestor ? Given his hypotension we will hold torsemide 3. 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 Sign scale insulin ? Accu-Cheks ? Will monitor make adjustments as necessary ? Appreciate nephrology assistance with dialysis, on admission he was approximately 16 pounds above his dry weight. He had been trying to do peritoneal dialysis versus hemodialysis. ? Will continue to encourage him to transfer to hemodialysis 4. Anxiety/depression ? Stable ? Continue with his home medications 5. Suspected seizure disorder ? Continue zonisamide 6. Iron deficiency anemia ? Continue with his iron supplementation ? B12 and folate levels are normal 7. BPH with obstruction ? Stable ? Continue with his home medications 8. GERD ? Stable ? Continue PPI DVT: Eliquis Charges/Coding Visit Charges Inpatient E&M: 71745 Subs Hosp L2
[2025-06-07] MEDS: Cholecalciferol (VIT D3) 25 MCG TABLET (1,000 UNITS) 50 MCG PO (09:38)
[2025-06-07] MEDS: APIXABAN 5 MG TABLET PO ×2 (09:38→21:41)
[2025-06-07] MEDS: Magnesium Chloride 64 MG Delay Rel.Tablet PO (09:38)
[2025-06-07] MEDS: Aspirin E.C. 81 MG Tablet PO (09:39)
[2025-06-07] MEDS: Lactobacillis Acidophilus 1 CAP PO ×4 (09:39→21:41)
[2025-06-07] MEDS: 0.9% Saline Lock 10 ML Syringe IV ×2 (09:52→11:52)
[2025-06-07] MEDS: 0.9% Normal Saline 1,000 ML IV.SOLN. 1000 ML OPERA.SITE (09:52)
--- NOTE | 2025-06-07 13:16 | PCM.PN.REN ---
Subjective Subjective Patient seen and examined on dialysis this morning. No overnight events. Tolerating HD well. at bedside. Objective Data Objective Data Vital Signs: Vital Signs Temp Pulse Resp BP Pulse Ox O2 Del Method O2 Flow Rate 97.8 F 69 13 127/69 H 100 Room Air 2 06/07/25 12:24 06/07/25 12:24 06/07/25 12:24 06/07/25 12:24 06/07/25 12:24 06/07/25 12:24 06/07/25 04:50 Oxygen Flow Rate (L/min) 2 Oxygen Delivery Method Room Air Weight: 108.8 kg Body Mass Index (BMI) 35.5 Intake & Output: Intake and Output for Last 24 Hours 06/05/25 06/06/25 06/07/25 23:59 23:59 23:59 Intake Total 465 / 465 1310 / 1310 520 / 520 Output Total 2100 / 2100 3150 / 3150 Balance -1635 / -1635 1310 / 1310 -2630 / -2630 Lab / Micro Data 06/06/25 05:26 06/06/25 05:26 Labs: Laboratory Results - last 24 hr 06/06/25 17:08: POC Glucose 185 H 06/06/25 20:54: POC Glucose 189 H 06/07/25 06:21: POC Glucose 127 H Micro: Microbiology 06/01/25 17:14 Blood Culture (Wb) - Anticubital Right Blood Culture - Final No growth in 5 days. 06/01/25 17:14 Blood Culture (Wb) - Anticubital Right Blood Culture - Final No growth in 5 days. 06/02/25 15:35 Blood Culture (Wb) - Central Line Blood Culture - Preliminary No growth in 48 hours. 06/02/25 01:00 Mucosa - Nasopharyngeal Respiratory Panel (PCR) - Final Physical Exam Narrative Alert awake oriented x 3 no obvious distress no JVD s1s2 no murmurs lungs clear abdomen soft ++ edema upper and lower extremities AVF left mid arm +thrill and bruit Tunneled HD catheter accessed for dialysis Assessment & Plan Assessment/Plan (1) ESRD (end stage renal disease) on dialysis: PLAN: Was on intermittent hemodialysis. Recently switched to peritoneal dialysis about 2 weeks ago. Worsening lower extremity edema, in total he gained about 16 pounds. Likely resulting in lower extremity edema and some redness around. Will need fluid removal. For hemodialysis access he has a right IJ tunneled dialysis catheter. He also has a left arm AV fistula which apparently has been cleared by vascular surgery to use. - ESRD; patient undergoing hemodialysis today trying to remove around 3-4L as patient and bp tolerates. Continue Midodrine. Once discharged from hospital patient to resume PD support and PD nurse has been contacted with orders. Reviewed with patient and today importance of FR and low sodium diet. Approximately 11 L fluid removed with hemodialysis while patient in hospital. Weights down, possibly nearing a dry weight. Assessment and plan reviewed with Dr. Sanchez.
--- NOTE | 2025-06-07 14:31 | CASEMGMT ---
ANA PAULA OCHOA to the pt's room at this time regarding future DC planning. Pt's at the bedside. Noted that the pt is currently requiring additional oxygen and may qualify for home oxygen use. A verbal list of local in-network DME companies were provided to the pt, Pt prefers [employer]. Pt states unsure of DC needs at this time, states [facility] and would like to continue if possible. Pt states he was able to stand and walk to chair with PT yesterday. ANA PAULA OCHOA to continue following.
--- NOTE | 2025-06-07 14:47 | PCM.PN.ID ---
Physical Exam Narrative Feeling better, no fever, leg much improved Const alert and no apparent distress General Appearance: cooperative Resp normal air movement and clear to auscultation bilaterally Cardio regular rate and regular rhythm GI soft to palpation, non-tender and non-distended Skin Skin Narrative: LLE mild swelling, nearly completely resolved erythema ID ID: Route of nutrition/ use of supplements: [] Nutritional Intake: [] IV Site: [] Wiggins Catheter: [] Assessment & Plan Assessment/Plan (1) Acute hypotension: PLAN: Not clear if hypotension is related to infection. On empiric vanc/zosyn. Had been on peritoneal dialysis recently, but no abd symptoms. LLE with some mild redness, tenderness, serous drainage. Cxs neg so far. Cont cefazolin, plan on home with po keflex 500mg q12h for 3 day course. Will follow (2) Type 2 diabetes mellitus with hyperglycemia, without long-term current use of insulin: (3) Cellulitis: QUALIFIERS: Site of cellulitis: extremity Site of cellulitis of extremity: lower extremity Laterality: left Qualified Code(s): L03.116 - Cellulitis of left lower limb
[2025-06-07] MEDS: Cefazolin 1 GM/50 ML BAG IV (21:40)
[2025-06-07] MEDS: OLANZapine 5 MG/TAB TAB.RAPDIS PO (21:42)
[2025-06-07] MEDS: Insulin Glargine-YFGN 100 UNIT/ML Pen 10 UNIT SC (21:42)
[2025-06-08] VITALS (21 sets, daily range): BP systolic 84–109; BP diastolic 47–65; PULSE 60–76; RESP 16–18; TEMP 36.3–36.9; O2SAT 98–100; BMI 35.4; BMI 34.7
[2025-06-08] MEDS: 0.9% Saline Lock 10 ML Syringe IV ×2 (06:31→11:18)
[2025-06-08] MEDS: PureFlow B 3K Dialysis Soln 1 BAG 6 BAG PF (08:15)
[2025-06-08] MEDS: 0.9% Normal Saline 1,000 ML IV.SOLN. 1000 ML OPERA.SITE (08:15)
--- NOTE | 2025-06-08 08:33 | PCM.PN.HOSP ---
Subjective Subjective No issues overnight, feels little bit down today and fatigued. In the middle of receiving dialysis Objective Data Objective Data Vital Signs: Vital Signs Temp Pulse Resp BP Pulse Ox O2 Del Method O2 Flow Rate 97.4 F L 68 16 109/55 L 100 Nasal Cannula 2 06/08/25 07:53 06/08/25 08:15 06/08/25 08:15 06/08/25 08:15 06/08/25 08:15 06/08/25 08:15 06/08/25 08:15 Oxygen Flow Rate (L/min) 2 Oxygen Delivery Method Nasal Cannula Weight: 239 lb 3.225 oz Body Mass Index (BMI) 35.4 Intake & Output: Intake and Output for Last 24 Hours 06/07/25 06/08/25 06/09/25 03:59 03:59 03:59 Intake Total 1310 / 1310 1470 / 1470 Output Total 3150 / 3150 0 / 0 Balance 1310 / 1310 -1680 / -1680 0 / 0 Lab / Micro Data 06/06/25 05:26 06/06/25 05:26 Labs: Laboratory Results - last 24 hr 06/07/25 10:45: POC Glucose 177 H 06/07/25 16:31: POC Glucose 198 H 06/07/25 21:37: POC Glucose 194 H 06/08/25 06:29: POC Glucose 151 H Micro: Microbiology 06/02/25 15:35 Blood Culture (Wb) - Central Line Blood Culture - Final No growth in 5 days. 06/01/25 17:14 Blood Culture (Wb) - Anticubital Right Blood Culture - Final No growth in 5 days. 06/01/25 17:14 Blood Culture (Wb) - Anticubital Right Blood Culture - Final No growth in 5 days. 06/02/25 01:00 Mucosa - Nasopharyngeal Respiratory Panel (PCR) - Final Physical Exam Narrative General: Alert, Oriented x3, Cooperative, No apparent distress HEENT: Atraumatic, PERRLA, EOMI, Normocephalic Oral: Moist Mucosa Neck: Supple, No JVD Lungs: Diminished, Normal air movement, No rhonchi, No wheeze, No rales Cardiovascular: Regular rate, Regular Rhythm, Normal S1, Normal S2, No murmurs Abdomen: Soft, Non Tender, Non-Distended, No Hepato-splenomegaly Extremities: Improved edema, Capillary Refill Less than 3 Seconds Skin: Left lower extremity redness resolved Musculoskeletal: No Tenderness to Palpation of Joints or Extremities Neurological: No focal neurological deficits, moves all extremities Psych/Mental Status: Normal Affect, Appropriate Assessment & Plan Assessment/Plan (1) Cellulitis: QUALIFIERS: Site of cellulitis: extremity Site of cellulitis of extremity: lower extremity Laterality: left Qualified Code(s): L03.116 - Cellulitis of left lower limb (2) Sepsis: QUALIFIERS: Sepsis type: sepsis due to unspecified organism Sepsis acute organ dysfunction status: without acute organ dysfunction Qualified Code(s): A41.9 - Sepsis, unspecified organism PLAN: Plan 1. Septic shock secondary to left lower extremity cellulitis/hypokalemia ?Continue with Ancef ? Appreciate miscellaneous machine operator assistance as well as nephrology assistance ?Appreciate ID evaluation ? CT of the left lower extremity was unremarkable with no abscess ? Will make midodrine as needed ? PT/OT, he states that his came yesterday and was able to help him around the room so he would prefer to go home if possible 2. Paroxysmal A-fib/essential HTN/HLD/history of CVA ? 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 Continue with his amiodarone plus aspirin and Eliquis though recent research is drawing into question the necessity of an antiplatelet in the setting of anticoagulation ? Continue with Crestor ? Given his hypotension we will hold torsemide 3. 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 Sign scale insulin ? Accu-Cheks ? Will monitor make adjustments as necessary ? Appreciate nephrology assistance with dialysis, on admission he was approximately 16 pounds above his dry weight. He had been trying to do peritoneal dialysis versus hemodialysis. ? Will continue to encourage him to transfer to hemodialysis 4. Anxiety/depression ? Stable ? Continue with his home medications 5. Suspected seizure disorder ? Continue zonisamide 6. Iron deficiency anemia ? Continue with his iron supplementation ? B12 and folate levels are normal 7. BPH with obstruction ? Stable ? Continue with his home medications 8. GERD ? Stable ? Continue PPI DVT: Eliquis Charges/Coding Visit Charges Inpatient E&M: 78106 Subs Hosp L2
--- NOTE | 2025-06-08 09:27 | PCM.DC ---
Discharge Instructions DC O2, CPAP, BIPAP needs Home O2 Discharge instructions: No Dressing / Incision Discharge Activity: Return to Normal Activity Dressing / Incision Call your doctor if you observe: Fever of 101 or Higher, Shortness of breath, Dizziness, Fainting spells, Swelling in the ankles, Chest pain and Increased palpitations (irregular heartbeat) Follow Up Care Test Results: Test results from this visit will be discussed in further detail at your follow-up appointment, if applicable. Discharge Plan Admission Admit Date/Time: 06/01/25 20:30 Attending Provider: Vargas Mai Primary Care Provider: Lester Jarvis Consulting Providers: Jarod Barlow; Darnell Young; Thomas Flores; Efraín Walter; Chidi Nichols; Desmond Hodge; Jarod Titus; Dheeraj Ledesma; Michael Gauthier; Ellyn Archuleta; Paco Martínez; Stanislav Earl; Vasquez Panchal; Ana Cristina Olivia; Andrés Paniagua; Ursula Cho; Sung Jane; Mike Sarabia; Geovanny Weiss; Nilesh Clark; Yara Portillo; Erik Young; Wolfgang Loomis; Kyrie Ellis; Conchis Allen; Enrique Simon; Anuja Sanchez Instructions Additional Instructions / Restrictions: It does not appear that peritoneal dialysis has been effective and I highly recommend that she proceed with hemodialysis Discharge Orders/Prescriptions Prescriptions: Continued multivitamin [Daily Multi-Vitamin] Tablet 1 tab PO DAILY tamsulosin 0.4 mg capsule 0.4 mg PO BID docusate sodium 100 mg capsule 100 mg PO BID PRN (Reason: constipation) olanzapine 5 mg tablet 5 mg PO QHS omeprazole 40 mg capsule,delayed release(DR/EC) 40 mg PO QDAY zonisamide 50 mg capsule 50 mg PO BID sertraline 100 mg tablet 100 mg PO QDAY rosuvastatin 20 mg tablet 20 mg PO QDAY aspirin [Adult Low Dose Aspirin] 81 mg tablet,delayed release (DR/EC) 81 mg PO QDAY cholecalciferol (vitamin D3) 25 mcg (1,000 unit) tablet 50 mcg PO DAILY buspirone 15 mg tablet 15 mg PO TID ascorbic acid (vitamin C) 500 mg tablet 1,000 mg PO LUNCH acetaminophen 500 mg tablet 1,000 mg PO Q8H PRN PRN (Reason: Pain 1-10) Qty: 1 0RF ferrous sulfate 325 mg (65 mg iron) tablet 325 mg PO DAILY Qty: 30 0RF Rx Instructions: give this at noon daily with the ferrous sulfate. fenofibrate 54 mg tablet 108 mg PO DAILY amiodarone 200 mg tablet 100 mg PO BID Rx Instructions: TAKE 1/2 TABLET 100MG finasteride 5 mg Tablet 5 mg PO QHS doxycycline hyclate 100 mg capsule 100 mg PO BID ondansetron HCl 4 mg tablet 2 mg PO Q8H insulin glargine [Lantus Solostar U-100 Insulin] 100 unit/mL (3 mL) insulin pen 16 unit subcut QHS Eliquis 5 mg tablet 5 mg PO BID magnesium 250 mg tablet 250 mg PO DAILY polyethylene glycol 3350 [ClearLax] 17 gram/dose powder 17 g PO DAILY PRN (Reason: constipation) dextrose 40 % gel 10 g PO Q15M PRN (Reason: hypoglycemia) Rx Instructions: until symptoms of low blood sugar are controlled insulin lispro [Humalog KwikPen Insulin] 100 unit/mL Insulin Pen 15 unit subcut TIDAC Protocol: 4. Sliding Scale Insulin High-Med Dosing Condition: 150-199 mg/dl = 2 units Condition: 200-259 mg/dl = 4 units Condition: 260-324 mg/dl = 6 units Condition: 325-374 mg/dl = 8 units Condition: 375-409 mg/dl = 10 units Condition: 410-449 mg/dl = 11 units Condition: Greater than 449 call physician Protocol Text: - Use for Total Daily Dose of Insulin 56-80 units - Patient who are insulin resistant or septic HIGH MEDIUM DOSING ALGORITHM torsemide 5 mg tablet 5 mg PO DAILY OXYGEN - Supplemental ([facility] INFORMATIONAL USE ONLY) Patient Comments: 2LPM at HS per RN CPAP - Continuous Positive Airway Pressure([facility] INFORMATIONAL USE ONLY) Patient Comments: unknown setting Referrals / Follow Up: Lester Jarvis MD [Primary Care Provider, Family Practice] - Within 1 Week Anuja Sanchez MD [Med Staff - Consulting, Nephrology] - Within 2 Weeks Disposition Disposition (needs filled in before D/C Order can be placed): Home, Self Care
--- NOTE | 2025-06-08 09:47 | PCM.DC.SUM ---
Providers Date of Admission: 06/01/25 Primary Care Physician: Dr. Lester Jarvis MD Consultations 06/01/25 21:10 Consult: Infectious Disease Routine Consulting Provider: Darnell Young Reason for Consult: LLE Cellulitis with suspected Sepsis with Chronic LE infection. EMERGENT Consult: No MD Notified: Yes Date Notified: 06/01/25 Time Notified: 21:10 Method of Notification: ED Physician Initiated 06/02/25 00:19 Consult: Nephrology Routine Consulting Provider: Anuja Sanchez Reason for Consult: ESRD on HD (T--Sat). EMERGENT Consult: No MD Notified: Yes Date Notified: 06/01/25 Time Notified: 20:34 Method of Notification: Answering Service 06/02/25 08:40 Consult: Student Life Dean / Pulmonary Medicine Routine Consulting Provider: Intensivists/Pulmonary Med Reason for Consult: Septic shock, on Levophed EMERGENT Consult: No Notified: Yes Date Notified: 06/02/25 Time Notified: 08:40 Method of Notification: Verbal Reason For Visit: LLE CELLULITIS WITH SUSPECTED SEPSIS Diagnosis Discharge Diagnosis (1) Cellulitis: Status: Acute Code(s): L03.90 - Cellulitis, unspecified Qualifiers: Site of cellulitis: extremity Site of cellulitis of extremity: lower extremity Laterality: left Qualified Code(s): L03.116 - Cellulitis of left lower limb (2) Sepsis: Status: Acute Code(s): A41.9 - Sepsis, unspecified organism Qualifiers: Sepsis type: sepsis due to unspecified organism Sepsis acute organ dysfunction status: without acute organ dysfunction Qualified Code(s): A41.9 - Sepsis, unspecified organism Medications at Discharge Home Medications multivitamin (Daily Multi-Vitamin tablet) 1 tab PO DAILY Supplement 02/12/22 tamsulosin 0.4 mg capsule 0.4 mg PO BID Urine retention 02/12/22 ascorbic acid (vitamin C) 500 mg tablet 1,000 mg PO LUNCH Supplement 02/28/23 acetaminophen 500 mg tablet 1,000 mg (2 x 500 mg) PO Q8H PRN PRN Pain 1-10 #1 TAB 03/15/23 ferrous sulfate 325 mg (65 mg iron) tablet 325 mg PO DAILY supplement #30 tabs 03/15/23 buspirone 15 mg tablet 15 mg PO TID Mood 11/22/23 docusate sodium 100 mg capsule 100 mg PO BID PRN constipation 11/22/23 olanzapine 5 mg tablet 5 mg PO QHS 11/22/23 omeprazole 40 mg capsule,delayed release 40 mg PO QDAY 11/22/23 sertraline 100 mg tablet 100 mg PO QDAY 11/22/23 zonisamide 50 mg capsule 50 mg PO BID 11/22/23 aspirin 81 mg tablet,delayed release (Adult Low Dose Aspirin) 81 mg PO QDAY Cardiac 12/08/24 rosuvastatin 20 mg tablet 20 mg PO QDAY 12/08/24 cholecalciferol (vitamin D3) 25 mcg (1,000 unit) tablet 50 mcg PO DAILY vitamin supplement 02/18/25 amiodarone 200 mg tablet 100 mg PO BID BP 03/26/25 fenofibrate 54 mg tablet 108 mg PO DAILY 03/26/25 finasteride 5 mg tablet 5 mg PO QHS 03/26/25 apixaban 5 mg tablet (Eliquis) 5 mg PO BID 04/26/25 dextrose 40 % oral gel 10 g PO Q15M PRN hypoglycemia 04/26/25 doxycycline hyclate 100 mg capsule 100 mg PO BID 04/26/25 insulin glargine 100 unit/mL (3 mL) subcutaneous pen (Lantus Solostar U-100 Insulin) 16 unit subcut QHS Diabetes 04/26/25 insulin lispro 100 unit/mL subcutaneous pen (Humalog KwikPen (U-100) Insulin) 15 unit subcut TIDAC SLIDINING SCALE 04/26/25 magnesium 250 mg tablet 250 mg PO DAILY SUPPLEMENT 04/26/25 ondansetron HCl 4 mg tablet 2 mg PO Q8H nausea and vomiting 04/26/25 polyethylene glycol 3350 17 gram/dose oral powder (ClearLax) 17 g PO DAILY PRN constipation 04/26/25 torsemide 5 mg tablet 5 mg PO DAILY 06/01/25 OXYGEN - Supplemental ([facility] INFORMATIONAL USE ONLY) at night 06/03/25 CPAP - Continuous Positive Airway Pressure([facility] INFORMATIONAL USE ONLY) sleep apnea 06/04/25 cephalexin 500 mg capsule 500 mg PO BID 3 days #6 caps 06/08/25 Hospital Course Operations None Procedures Dialysis Summary of Care Provided Minutes Spent on Discharge: 38 Hospital Course: Per HPI: VIVI IRWIN, is a 75 M wih a past medical history of essential hypertension; on torsemide, hyperlipidemia; on rosuvastatin plus fenofibrate, obesity (class II); with BMI of 37.6 this admission, WANDA, DM-2; of unknown control on insulin glargine 16U q. 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; on zonisamide BID with no history of tonic-clonic seizures, chronic combined systolic and diastolic CHF, history of nonischemic cardiomyopathy, chronic Left knee infection; on lifelong doxycycline BID, chronic LE lymphedema, JUSTINO; on ferrous sulfate, depression with anxiety; on sertraline, buspirone and olanzapine, BPH; on tamsulosin plus finasteride, GERD; on omeprazole, constipation; on polyethylene glycol daily prn, history of clostridium difficile infection (2023), OA; with history of bilateral TKR's with infection plus chronic low back pain s/p discectomy x 2 with spinal stimulator and recent admission here from April 26, 2025 to April 28, 2025 for treatment of general debility secondary to multiple medical problems who re-presents to [facility] ER complaining of fever, chills, confusion and hallucinations. Mr. Irwin reports his symptoms began approximately one day prior to admission with subjective fever and chills followed by confusion and hallucinations. He also admits to headache that began in the top of his head and then moved to the front and back - but he denies neck stiffness or pain. He affirms he no longer makes any urine and his informed me she was not able to perform HD today because they had to come in for urgent treatment of his LLE infection. His went on to explain he had a similar episode in the past when he had to have surgery in his Right knee for worsening infection and she is worried he is now doing the same in his LLE in spite of taking his suppressive doxycycline. In the ER he was diagnosed with suspected LLE Cellulitis in the setting of previously known Chronic Left Knee Infection with laboratory evidence of Lactic Acidosis of 2.5 mmol/L present on admission suspicious for possible Sepsis complicated by Hypokalemia of 2.5 mmol/L present on admission in the setting of ESRD on HD () and he was then admitted to the PCU for treatment under the Sepsis protocol for a stay that is expected to extend beyond 2 midnights. Hospital Course: 1. Septic shock secondary to left lower extremity cellulitis/hypokalemia?75-year-old male presented to the hospital with left lower extremity cellulitis. He did develop septic shock and was started on pressors and transition to p.o. midodrine. This was discontinued yesterday and he has not required a dose since then. He also did have significant improvement in symptoms with the initiation of hemodialysis as he was about 16 pounds above his dry weight when he was admitted. He did have significant lower extremity edema as well as left upper extremity edema all of which has improved significantly with dialysis. Infectious disease was consulted and initially he was transition to Anc and they recommend Keflex 500 mg p.o. twice daily for 3 more days in light of his renal function. He was able to be assisted by his and he would like to go home going to a care home and she would like for him to go home today. He expressed understanding of the risks and benefits of going home and would like to go home today. 2. Paroxysmal A-fib, essential hypertension, hyperlipidemia, history of CVA, type 2 diabetes end-stage renal disease, anxiety, depression, seizure disorder, iron deficiency anemia, BPH with obstruction, GERD are all chronic medical conditions which complicate his care. His home medications were continued where appropriate. Given the fact that his peritoneal dialysis appears to have been unsuccessful, I do recommend that he follow-up with his storeroom attendant for evaluation of hemodialysis. Weight / BMI Weight Weight: 239 lb 3.225 oz Body Mass Index (BMI) 35.4 ABG / Lab / Microbiology Data 06/06/25 05:26 06/06/25 05:26 Laboratory: Laboratory Results - last 24 hr 06/07/25 10:45: POC Glucose 177 H 06/07/25 16:31: POC Glucose 198 H 06/07/25 21:37: POC Glucose 194 H 06/08/25 06:29: POC Glucose 151 H Microbiology: Microbiology 06/02/25 15:35 Blood Culture (Wb) - Central Line Blood Culture - Final No growth in 5 days. 06/01/25 17:14 Blood Culture (Wb) - Anticubital Right Blood Culture - Final No growth in 5 days. 06/01/25 17:14 Blood Culture (Wb) - Anticubital Right Blood Culture - Final No growth in 5 days. 06/02/25 01:00 Mucosa - Nasopharyngeal Respiratory Panel (PCR) - Final D/C Instructions Call your doctor if you observe: Fever of 101 or Higher, Shortness of breath, Dizziness, Fainting spells, Swelling in the ankles, Chest pain and Increased palpitations (irregular heartbeat) DC O2, CPAP, BIPAP Needs Home O2 Discharge instructions: No Meaningful Use Info Meaningful Use Meaningful Use Diagnoses (Choose all that apply): None applicable Discharge Plan Admission Admit Date/Time: 06/01/25 20:30 Attending Provider: Vargas Mai Primary Care Provider: Lester Jarvis Consulting Providers: Jarod Barlow; Darnell Young; Thomas Flores; Efraín Walter; Chidi Nichols; Desmond Hodge; Jarod Titus; Dheeraj Ledesma; Michael Gauthier; Ellyn Archuleta; Paco Martínez; Stanislav Earl; Vasquez Panchal; Ana Cristina Olivia; Andrés Paniagua; Ursula Cho; Sung Jane; Mike Sarabia; Geovanny Weiss; Nilesh Clark; Yara Portillo; Erik Young; Wolfgang Loomis; Kyrie Ellis; Conchis Allen; Enrique Simon; Aunja Sanchez Instructions Additional Instructions / Restrictions: It does not appear that peritoneal dialysis has been effective and I highly recommend that she proceed with hemodialysis Discharge Orders/Prescriptions Prescriptions: New cephalexin 500 mg capsule 500 mg PO BID 3 Days Qty: 6 0RF Continued multivitamin [Daily Multi-Vitamin] Tablet 1 tab PO DAILY tamsulosin 0.4 mg capsule 0.4 mg PO BID docusate sodium 100 mg capsule 100 mg PO BID PRN (Reason: constipation) olanzapine 5 mg tablet 5 mg PO QHS omeprazole 40 mg capsule,delayed release(DR/EC) 40 mg PO QDAY zonisamide 50 mg capsule 50 mg PO BID sertraline 100 mg tablet 100 mg PO QDAY rosuvastatin 20 mg tablet 20 mg PO QDAY aspirin [Adult Low Dose Aspirin] 81 mg tablet,delayed release (DR/EC) 81 mg PO QDAY cholecalciferol (vitamin D3) 25 mcg (1,000 unit) tablet 50 mcg PO DAILY buspirone 15 mg tablet 15 mg PO TID ascorbic acid (vitamin C) 500 mg tablet 1,000 mg PO LUNCH acetaminophen 500 mg tablet 1,000 mg PO Q8H PRN PRN (Reason: Pain 1-10) Qty: 1 0RF ferrous sulfate 325 mg (65 mg iron) tablet 325 mg PO DAILY Qty: 30 0RF Rx Instructions: give this at noon daily with the ferrous sulfate. fenofibrate 54 mg tablet 108 mg PO DAILY amiodarone 200 mg tablet 100 mg PO BID Rx Instructions: TAKE 1/2 TABLET 100MG finasteride 5 mg Tablet 5 mg PO QHS doxycycline hyclate 100 mg capsule 100 mg PO BID ondansetron HCl 4 mg tablet 2 mg PO Q8H insulin glargine [Lantus Solostar U-100 Insulin] 100 unit/mL (3 mL) insulin pen 16 unit subcut QHS Eliquis 5 mg tablet 5 mg PO BID magnesium 250 mg tablet 250 mg PO DAILY polyethylene glycol 3350 [ClearLax] 17 gram/dose powder 17 g PO DAILY PRN (Reason: constipation) dextrose 40 % gel 10 g PO Q15M PRN (Reason: hypoglycemia) Rx Instructions: until symptoms of low blood sugar are controlled insulin lispro [Humalog KwikPen Insulin] 100 unit/mL Insulin Pen 15 unit subcut TIDAC Protocol: 4. Sliding Scale Insulin High-Med Dosing Condition: 150-199 mg/dl = 2 units Condition: 200-259 mg/dl = 4 units Condition: 260-324 mg/dl = 6 units Condition: 325-374 mg/dl = 8 units Condition: 375-409 mg/dl = 10 units Condition: 410-449 mg/dl = 11 units Condition: Greater than 449 call physician Protocol Text: - Use for Total Daily Dose of Insulin 56-80 units - Patient who are insulin resistant or septic HIGH MEDIUM DOSING ALGORITHM torsemide 5 mg tablet 5 mg PO DAILY OXYGEN - Supplemental ([facility] INFORMATIONAL USE ONLY) Patient Comments: 2LPM at HS per RN CPAP - Continuous Positive Airway Pressure([facility] INFORMATIONAL USE ONLY) Patient Comments: unknown setting Referrals / Follow Up: Lester Jarvis MD [Primary Care Provider, Family Practice] - Within 1 Week Anuja Sanchez MD [Med Staff - Consulting, Nephrology] - Within 2 Weeks Disposition Disposition (needs filled in before D/C Order can be placed): Home, Self Care Charges/Coding Visit Charges Inpatient E&M: 50835 Disch Hosp >30min
--- NOTE | 2025-06-08 10:47 | PHA.DC.MC.R ---
Pharmacy [facility] has performed discharge medication reconciliation and counseling for this patient. The patient's discharge medication list was reviewed for discrepancies and discrepancies were resolved. The patient was counseled on the following discharge medications and changes in medications for homegoing were reviewed. The Reason for Use, instructions for use, and potential side effects were reviewed for all new medications. The patient's questions regarding all of their medications were answered. 1. Cephalexin 500 mg PO BID x 3 days The patient was able to verbally demonstrate an understanding of their discharge medications. Medications at Discharge Home Medications multivitamin (Daily Multi-Vitamin tablet) 1 tab PO DAILY Supplement 02/12/22 tamsulosin 0.4 mg capsule 0.4 mg PO BID Urine retention 02/12/22 ascorbic acid (vitamin C) 500 mg tablet 1,000 mg PO LUNCH Supplement 02/28/23 acetaminophen 500 mg tablet 1,000 mg (2 x 500 mg) PO Q8H PRN PRN Pain 1-10 #1 TAB 03/15/23 ferrous sulfate 325 mg (65 mg iron) tablet 325 mg PO DAILY supplement #30 tabs 03/15/23 buspirone 15 mg tablet 15 mg PO TID Mood 11/22/23 docusate sodium 100 mg capsule 100 mg PO BID PRN constipation 11/22/23 olanzapine 5 mg tablet 5 mg PO QHS 11/22/23 omeprazole 40 mg capsule,delayed release 40 mg PO QDAY 11/22/23 sertraline 100 mg tablet 100 mg PO QDAY 11/22/23 zonisamide 50 mg capsule 50 mg PO BID 11/22/23 aspirin 81 mg tablet,delayed release (Adult Low Dose Aspirin) 81 mg PO QDAY Cardiac 12/08/24 rosuvastatin 20 mg tablet 20 mg PO QDAY 12/08/24 cholecalciferol (vitamin D3) 25 mcg (1,000 unit) tablet 50 mcg PO DAILY vitamin supplement 02/18/25 amiodarone 200 mg tablet 100 mg PO BID BP 03/26/25 fenofibrate 54 mg tablet 108 mg PO DAILY 03/26/25 finasteride 5 mg tablet 5 mg PO QHS 03/26/25 apixaban 5 mg tablet (Eliquis) 5 mg PO BID 04/26/25 dextrose 40 % oral gel 10 g PO Q15M PRN hypoglycemia 04/26/25 doxycycline hyclate 100 mg capsule 100 mg PO BID 04/26/25 insulin glargine 100 unit/mL (3 mL) subcutaneous pen (Lantus Solostar U-100 Insulin) 16 unit subcut QHS Diabetes 04/26/25 insulin lispro 100 unit/mL subcutaneous pen (Humalog KwikPen (U-100) Insulin) 15 unit subcut TIDAC SLIDINING SCALE 04/26/25 magnesium 250 mg tablet 250 mg PO DAILY SUPPLEMENT 04/26/25 ondansetron HCl 4 mg tablet 2 mg PO Q8H nausea and vomiting 04/26/25 polyethylene glycol 3350 17 gram/dose oral powder (ClearLax) 17 g PO DAILY PRN constipation 04/26/25 torsemide 5 mg tablet 5 mg PO DAILY 06/01/25 OXYGEN - Supplemental ([facility] INFORMATIONAL USE ONLY) at night 06/03/25 CPAP - Continuous Positive Airway Pressure([facility] INFORMATIONAL USE ONLY) sleep apnea 06/04/25 cephalexin 500 mg capsule 500 mg PO BID 3 days #6 caps 06/08/25
--- NOTE | 2025-06-08 11:11 | CASEMGMT ---
ANA PAULA OCHOA noted DC order. Into Pt room, pt getting dialysis, at bedside. Pt reconfirmed desire to go home with SABRINA of SN, PT and OT with [facility]. Pt does not want to return to [facility], would like to continue doing PD at home, states they are changing his fluids and is getting new order delivered tomorrow from [facility]. ANA PAULA OCHOA sent SABRINA order to [facility], able to accept Pt back. Pt denies any questions or concerns at this time.
--- NOTE | 2025-06-08 12:52 | PCM.PN.REN ---
Subjective Subjective no new events Objective Data Objective Data Vital Signs: Vital Signs Temp Pulse Resp BP Pulse Ox O2 Del Method O2 Flow Rate 98.0 F 68 16 109/56 L 100 Room Air 2 06/08/25 11:50 06/08/25 11:50 06/08/25 11:50 06/08/25 11:50 06/08/25 11:50 06/08/25 11:50 06/08/25 10:44 Oxygen Flow Rate (L/min) 2 Oxygen Delivery Method Room Air Weight: 106.2 kg Body Mass Index (BMI) 34.7 Intake & Output: Intake and Output for Last 24 Hours 06/06/25 06/07/25 06/08/25 23:59 23:59 23:59 Intake Total 1310 / 1310 1070 / 1470 400 / 400 Output Total 3150 / 3150 2400 / 2400 Balance 1310 / 1310 -2080 / -1680 -1999 / -1999 Lab / Micro Data 06/06/25 05:26 06/06/25 05:26 Labs: Laboratory Results - last 24 hr 06/07/25 10:45: POC Glucose 177 H 06/07/25 16:31: POC Glucose 198 H 06/07/25 21:37: POC Glucose 194 H 06/08/25 06:29: POC Glucose 151 H 06/08/25 11:57: POC Glucose 102 Micro: Microbiology 06/02/25 15:35 Blood Culture (Wb) - Central Line Blood Culture - Final No growth in 5 days. 06/01/25 17:14 Blood Culture (Wb) - Anticubital Right Blood Culture - Final No growth in 5 days. 06/01/25 17:14 Blood Culture (Wb) - Anticubital Right Blood Culture - Final No growth in 5 days. 06/02/25 01:00 Mucosa - Nasopharyngeal Respiratory Panel (PCR) - Final Physical Exam Narrative Alert awake oriented x 3 no obvious distress no JVD s1s2 no murmurs lungs clear abdomen soft ++ edema upper and lower extremities AVF left mid arm +thrill and bruit Tunneled HD catheter accessed for dialysis Assessment & Plan Assessment/Plan (1) ESRD (end stage renal disease) on dialysis: PLAN: Was on intermittent hemodialysis. Recently switched to peritoneal dialysis about 2 weeks ago. Worsening lower extremity edema, in total he gained about 16 pounds. Likely resulting in lower extremity edema and some redness around. Will need fluid removal. For hemodialysis access he has a right IJ tunneled dialysis catheter. He also has a left arm AV fistula which apparently has been cleared by vascular surgery to use. - ESRD; patient undergoing hemodialysis today trying to remove around 3-4L as patient and bp tolerates. Continue Midodrine. Once discharged from hospital patient to resume PD support and PD nurse has been contacted with orders. Reviewed with patient and today importance of FR and low sodium diet. Approximately 11 L fluid removed with hemodialysis while patient in hospital. Weights down, possibly nearing a dry weight. Assessment and plan reviewed with Dr. Sanchez. 06/08/2025. Seen on dialysis today. Edema is better overall. Redness is improved. Blood pressure is low but it is not a new issue. Continue midodrine. Potential discharge today. Called and spoke to outpatient dialysis unit. Prescription has been adjusted. Peritoneal dialysis starting tomorrow. Discussed with at bedside.
[2025-06-08] MEDS: Cholecalciferol (VIT D3) 25 MCG TABLET (1,000 UNITS) 50 MCG PO (13:31)
[2025-06-08] MEDS: Aspirin E.C. 81 MG Tablet PO (13:32)
[2025-06-08] MEDS: Magnesium Chloride 64 MG Delay Rel.Tablet PO (13:32)
[2025-06-08] MEDS: Lactobacillis Acidophilus 1 CAP PO (13:32)
[2025-06-08] MEDS: APIXABAN 5 MG TABLET PO (13:32)
--- NOTE | 2025-06-08 13:34 | NURSING ---
AM medications late d/t pt getting dialysis.
--- NOTE | 2025-06-08 13:39 | CASEMGMT ---
ANA PAULA CM informed by Pt nurse, Pt did not qualify for home oxygen.
== END 2025-06-08 14:54 | disposition home or self-care (01) | DRG 871 ==
LOC: ED 19:50 → PCU 22:12 → ICU 23:52 → PCU 06-08 09:30 → ICU 06-09 16:56
PROVIDERS: Internal Medicine Critical Care Medicine; Internal Medicine Infectious Disease; Admitting Provider Internal Medicine; Emergency Provider Emergency Medicine; PCP Family Medicine; Visit Provider Family Medicine
DX: A41.9 Sepsis, unspecified organism (principal); N18.6 End stage renal disease; R65.21 Severe sepsis with septic shock; I13.2 Hypertensive heart and chronic kidney disease with heart failure and with stage 5 chronic kidney disease, or end stage renal disease; I69.354 Hemiplegia and hemiparesis following cerebral infarction affecting left non-dominant side; I42.8 Other cardiomyopathies; R44.3 Hallucinations, unspecified; I50.42 Chronic combined systolic (congestive) and diastolic (congestive) heart failure; L03.116 Cellulitis of left lower limb; N13.8 Other obstructive and reflux uropathy; G40.909 Epilepsy, unspecified, not intractable, without status epilepticus; I48.0 Paroxysmal atrial fibrillation; E11.22 Type 2 diabetes mellitus with diabetic chronic kidney disease; D50.9 Iron deficiency anemia, unspecified; F32.A Depression, unspecified; Z68.37 Body mass index [BMI] 37.0-37.9, adult; Z95.2 Presence of prosthetic heart valve; E78.00 Pure hypercholesterolemia, unspecified; M54.50 Low back pain, unspecified; E87.6 Hypokalemia; E11.65 Type 2 diabetes mellitus with hyperglycemia; Z79.4 Long term (current) use of insulin; E11.51 Type 2 diabetes mellitus with diabetic peripheral angiopathy without gangrene; F41.9 Anxiety disorder, unspecified; I25.10 Atherosclerotic heart disease of native coronary artery without angina pectoris; Z99.2 Dependence on renal dialysis; K21.9 Gastro-esophageal reflux disease without esophagitis; I69.398 Other sequelae of cerebral infarction; K59.00 Constipation, unspecified; I95.89 Other hypotension; G47.33 Obstructive sleep apnea (adult) (pediatric); N40.1 Benign prostatic hyperplasia with lower urinary tract symptoms; G89.29 Other chronic pain; E66.812 Obesity, class 2; Z79.01 Long term (current) use of 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s; Z79.82 Long term (current) use of aspirin; Z79.2 Long term (current) use of antibiotics; Z79.899 Other long term (current) drug therapy; Z95.1 Presence of aortocoronary bypass graft; Z95.5 Presence of coronary angioplasty implant and graft
CPT/HCPCS: 36415; 73701; 80048; 80053; 80061; 80202; 82077; 82607; 82746; 82962; 83036; 83605; 84439; 84443; 84481; 85025; 85652; 86140; 87040; 87086; 87633; 90937; 93005; 97162; 97166; 97530; 97535; 97803; 99285; P9047; Q9967; A4216; G0257; J0295; J2405; Q5106

== ENCOUNTER 2025-06-30 14:19 | Inpatient (IN) | payer MEDICARE, MEDICAID, SELFPAY ==
[2025-06-30] VITALS (21 sets, daily range): BP systolic 55–111; BP diastolic 28–81; PULSE 61–99; RESP 15–23; TEMP 36.4–36.9; O2SAT 94–100; BMI 37.0
--- NOTE | 2025-06-30 15:16 | CT_ITS ---
PROCEDURE: BRAIN/HEAD WITHOUT CONTRAST 06/30/2025 REASON FOR EXAM: SEIZURES TECHNIQUE: Procedure Code: CTBR Modality: CT Procedure: BRAIN/HEAD WITHOUT CONTRAST Coronal and Sagittal reconstruction series were provided. One or more dose reduction techniques were used (e.g., Automated exposure control, adjustment of the mA and/or kV according to patient size, use of iterative reconstruction technique. COMPARISON: 12/07/2022. FINDINGS: Since the previous study, there are curvilinear areas of high density in the area of encephalomalacia involving the right temporal lobe, most compatible with calcifications. 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 No acute intracranial hemorrhage. Atherosclerotic calcifications are seen within the carotid siphons and vertebral arteries. Moderate generalized atrophy with commensurate ventriculomegaly, not significantly changed. No midline shift. No fracture. The calvarium is intact. The paranasal sinuses and mastoid air cells are clear. CT/Brain/Head without Contrast IMPRESSION: Curvilinear areas of high density in the area of encephalomalacia of the right temporal lobe, new since the previous study and most compatible with calcifications. Old right-sided cerebral infarctions, unchanged. Reading Location: [id number]
--- NOTE | 2025-06-30 15:17 | EKG12_ITS ---
Test Reason : SOB Blood Pressure : */* mmHG Vent. Rate : 96 BPM Atrial Rate : * BPM P-R Int : * ms QRS Dur : 144 ms QT Int : 388 ms P-R-T Axes : * -50 51 degrees QTcB Int : 490 ms probably NSR with 1st degree avb occ PVC Right bundle branch block Left anterior fascicular block Bifascicular block Possible Lateral infarct , age undetermined Abnormal ECG baseline artifact affects rhythm determination Confirmed by Adalid Rolon ([id number]), video editor VON TOWNSEND ([id number]) on 07/01/2025 9:38:52 AM Referred By: DEMETRICE Confirmed By: Adalid Rolon
--- NOTE | 2025-06-30 15:17 | RAD_ITS ---
PROCEDURE: CHEST PA AND LATERAL 06/30/2025 REASON FOR EXAM: SOB TECHNIQUE: Procedure Code: RADCXR Modality: DX Procedure: Three-view AP and lateral chest COMPARISON: AP and lateral chest of 04/26/2025. RAD/Chest PA and Lateral IMPRESSION: Question of Pneumoperitoneum under the right hemidiaphragm. Neurostimulator seen in the thoracic spinal canal. Central venous catheter seen with tip projecting near the expected junction of the SVC and right atrium. The examination is limited by hypoinflation, AP portable technique, in some pat ient motion (particularly on lateral views). No pneumothorax or pleural effusion is seen. No evidence of pulmonary edema. No focal infiltrate is identified on this somewhat limited examination. The cardiomediastinal silhouette is stable, without evidence of cardiomegaly. Reading Location: [id number]
--- NOTE | 2025-06-30 15:28 | EX.ED.DYSGE1 ---
HPI History of Present Illness Chief Complaint: General Illness Narrative Narrative: Chief complaint and HPI: 75-year-old male with past medical history of DM2, ESRD on peritoneal dialysis presents with for fluid overload. History mostly taken by . states that the patient gets peritoneal dialysis daily. He used to be on HD. He does not make urine. She states for the past 3 weeks he has been having intermittent seizures. He has no history of seizures. His last seizure was yesterday. She states the seizures only happen on the commode. He has full body shaking with a postictal phase per her report. Patient has gained 6 pounds today despite peritoneal dialysis therefore their physician referred them to the emergency department. Patient states he has had some nausea. Denies any fever, chills, headache, chest pain, abdominal pain, diarrhea. He endorses shortness of breath. Review of systems: See HPI Medications: As listed on the chart Allergies: As listed on the chart PFSH: Per chart Vital signs: As listed on the chart. Reviewed. Physical exam: Gen: A&O x3, NAD Head: Normocephalic, atraumatic Eyes: No sclera icterus, conjunctiva clear ENT: Dry mucous membranes Neck: Trachea midline, full range of motion CV: RRR, no murmurs, + 2 pitting peripheral edema of the entire bilateral lower extremities with anasarca throughout the body Resp: Lungs CTA BL but diminished in the bilateral bases right HD catheter without signs of cellulitis, left fistula with good thrill GI: Morbidly obese, abd soft, non-distended, non-tender, no r/r/g, peritoneal dialysis catheter without signs of cellulitis Musc: Moves all extremities, no deformity Skin: Warm, dry Neuro: Alert, oriented, grossly intact, sensation intact Psych: Cooperative, appropriate mood and affect [facility] Medical History Physical debility Arteriovenous fistula of left upper extremity ESRD (end stage renal disease) on dialysis Leg swelling Dyspnea on exertion Fatigue Shortness of breath CKD (chronic kidney disease) Bilateral leg edema Preoperative cardiovascular examination Osteopenia determined by x-ray Aftercare following explantation of knee joint prosthesis Infected prosthetic knee joint Chronic anticoagulation 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 WANDA (obstructive sleep apnea) Cognitive dysfunction Easy bruising Excessive bleeding Gastric reflux Non-smoker A-V fistula History of Clostridium difficile infection Wears dentures Depression Anxiety Insulin dependent diabetes mellitus Walker as ambulation aid Ambulates with cane Arthritis History of renal dialysis High cholesterol Restless legs Back pain Dietary restriction Shortness of breath on exertion Leg cramps History of pain when walking History of edema History of Holter monitoring History of stress test History of echocardiogram Cardiology follow-up encounter Atrial tachycardia History of CVA (cerebrovascular accident) Left-sided weakness Diabetes mellitus, type 2 Persistent atrial fibrillation BPH (benign prostatic hyperplasia) Depression Normochromic normocytic anemia Iron deficiency History of iron deficiency Cerebral artery occlusion with cerebral infarction Acute right MCA stroke Longstanding persistent atrial fibrillation Chronic combined systolic and diastolic CHF (congestive heart failure) 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 (LBBB) Acute on chronic combined systolic (congestive) and diastolic (congestive) heart failure (02/02/20) History of non-ST elevation myocardial infarction (NSTEMI) (02/02/20) Non-ischemic cardiomyopathy NSVT (nonsustained ventricular tachycardia) Obesity CVA (cerebral vascular accident) (12/2017) Secondary pulmonary arterial hypertension GERD (gastroesophageal reflux disease) Hyperlipidemia Essential (primary) hypertension CKD (chronic kidney disease), stage III Paroxysmal atrial fibrillation Anemia Chronic low back pain Osteoarthritis Home Medications Medication Instructions Recorded Last Taken Type multivitamin (Daily Multi-Vitamin 1 tab PO DAILY Supplement 02/12/22 04/25/25 History tablet) tamsulosin 0.4 mg capsule 0.4 mg PO BID Urine retention 02/12/22 04/25/25 History ascorbic acid (vitamin C) 500 mg 1,000 mg PO LUNCH Supplement 02/28/23 04/25/25 History tablet acetaminophen 500 mg tablet 1,000 mg (2 x 500 mg) PO Q8H PRN 03/15/23 04/04/25 Rx PRN Pain 1-10 #1 TAB ferrous sulfate 325 mg (65 mg 325 mg PO DAILY supplement #30 tabs 03/15/23 04/25/25 Rx iron) tablet buspirone 15 mg tablet 15 mg PO TID Mood 11/22/23 04/25/25 History docusate sodium 100 mg capsule 100 mg PO BID PRN constipation 11/22/23 Unknown History olanzapine 5 mg tablet 5 mg PO QHS 11/22/23 04/25/25 History omeprazole 40 mg capsule,delayed 40 mg PO QDAY 11/22/23 04/25/25 History release sertraline 100 mg tablet 100 mg PO QDAY 11/22/23 04/25/25 History zonisamide 50 mg capsule 50 mg PO BID 11/22/23 04/25/25 History aspirin 81 mg tablet,delayed 81 mg PO QDAY Cardiac 12/08/24 04/25/25 History release (Adult Low Dose Aspirin) rosuvastatin 20 mg tablet 20 mg PO QDAY 12/08/24 04/25/25 History cholecalciferol (vitamin D3) 25 50 mcg PO DAILY vitamin supplement 02/18/25 04/25/25 History mcg (1,000 unit) tablet amiodarone 200 mg tablet 100 mg PO BID BP 03/26/25 04/25/25 History fenofibrate 54 mg tablet 108 mg PO DAILY 03/26/25 04/25/25 History finasteride 5 mg tablet 5 mg PO QHS 03/26/25 04/25/25 History apixaban 5 mg tablet (Eliquis) 5 mg PO BID 04/26/25 04/25/25 History dextrose 40 % oral gel 10 g PO Q15M PRN hypoglycemia 04/26/25 Unknown History doxycycline hyclate 100 mg capsule 100 mg PO BID 04/26/25 04/25/25 History insulin glargine 100 unit/mL (3 16 unit subcut QHS Diabetes 04/26/25 04/25/25 History mL) subcutaneous pen (Lantus Solostar U-100 Insulin) insulin lispro 100 unit/mL 15 unit subcut TIDAC SLIDINING 04/26/25 04/25/25 History subcutaneous pen (Humalog KwikPen SCALE (U-100) Insulin) magnesium 250 mg tablet 250 mg PO DAILY SUPPLEMENT 04/26/25 04/25/25 History ondansetron HCl 4 mg tablet 2 mg PO Q8H nausea and vomiting 04/26/25 04/25/25 History polyethylene glycol 3350 17 17 g PO DAILY PRN constipation 04/26/25 Unknown History gram/dose oral powder (ClearLax) torsemide 5 mg tablet 5 mg PO DAILY 06/01/25 Unknown History OXYGEN - Supplemental ([facility] at night 06/03/25 Unknown History INFORMATIONAL USE ONLY) CPAP - Continuous Positive Airway sleep apnea 06/04/25 06/04/25 History Pressure([facility] INFORMATIONAL USE ONLY) cephalexin 500 mg capsule 500 mg PO BID 3 days #6 caps 06/08/25 Unknown Rx Allergy/AdvReac Type Severity Reaction Status Date / Time rofecoxib Allergy Severe Swelling Verified 06/01/25 16:40 Family History Mother Heart disease Sister Heart disease Myocardial infarction CVA (cerebral vascular accident) Diabetes Brother CVA (cerebral vascular accident) Other Persistent atrial fibrillation Surgical History History of insertion of nerve stimulator History of surgery Hx of colonoscopy Hx of lumbar discectomy Hx of total knee arthroplasty History of knee replacement, total Social History household members: spouse Smoking Status: Never smoker alcohol intake: current alcohol intake frequency: holidays/special occasions only Alcohol type: beer substance use type: does not use caffeine: Yes Type: coffee Number of servings: 2 EXAM Physical Exam Const Vital Signs: 06/30/25 14:21 06/30/25 14:21 06/30/25 14:29 Temperature 97.6 F L Temperature Source Oral Pulse Rate 99 Respiratory Rate 22 H Respiratory Pattern Tachypnea Blood Pressure 94/56 L Blood Pressure Mean 68 Pulse Ox 95 100 Oxygen Delivery Method Room Air 06/30/25 14:30 06/30/25 14:45 06/30/25 15:00 Temperature Temperature Source Pulse Rate Respiratory Rate 19 H 20 H 22 H Respiratory Pattern Blood Pressure 75/55 L 77/48 L 78/46 L Blood Pressure Mean 63 57 56 Pulse Ox 100 99 100 Oxygen Delivery Method 06/30/25 15:15 06/30/25 15:15 06/30/25 15:27 Temperature 97.9 F Temperature Source Oral Pulse Rate 96 96 Respiratory Rate 23 H 22 H Respiratory Pattern Blood Pressure 81/43 L 81/43 L 81/43 L Blood Pressure Mean 54 54 55 Pulse Ox 98 94 Oxygen Delivery Method Room Air 06/30/25 15:30 06/30/25 15:47 06/30/25 16:00 Temperature Temperature Source Pulse Rate 87 Respiratory Rate 19 H 15 16 Respiratory Pattern Blood Pressure 92/54 L 75/55 L Blood Pressure Mean 66 64 Pulse Ox 98 100 Oxygen Delivery Method 06/30/25 16:15 06/30/25 16:30 06/30/25 16:30 Temperature Temperature Source Pulse Rate 98 96 Respiratory Rate 17 16 Respiratory Pattern Blood Pressure 86/68 L 93/67 93/67 Blood Pressure Mean 74 75 75 Pulse Ox 100 100 Oxygen Delivery Method 06/30/25 16:45 06/30/25 17:00 06/30/25 18:00 Temperature Temperature Source Pulse Rate 94 91 Respiratory Rate 15 16 Respiratory Pattern Blood Pressure 104/81 H 98/48 L 101/49 L Blood Pressure Mean 89 65 66 Pulse Ox 99 98 Oxygen Delivery Method 06/30/25 18:54 06/30/25 20:00 06/30/25 20:33 Temperature Temperature Source Pulse Rate 92 92 Respiratory Rate 20 H 19 H Respiratory Pattern Blood Pressure 55/28 L 93/66 108/58 L Blood Pressure Mean 37 75 74 Pulse Ox 100 99 Oxygen Delivery Method Room Air Room Air 06/30/25 21:00 06/30/25 22:00 06/30/25 23:37 Temperature 98.5 F Temperature Source Oral Pulse Rate 93 61 89 Respiratory Rate 18 20 H 19 H Respiratory Pattern Blood Pressure 111/81 H 106/47 L 104/54 L Blood Pressure Mean 91 66 70 Pulse Ox 100 100 100 Oxygen Delivery Method Room Air Room Air Room Air MDM MDM MDM Narrative Medical decision making narrative: 75-year-old male with past medical history of DM2, ESRD on peritoneal dialysis presents with for fluid overload. History mostly taken by . states that the patient gets peritoneal dialysis daily. He used to be on HD. He does not make urine. She states for the past 3 weeks he has been having intermittent seizures. He has no history of seizures. His last seizure was yesterday. She states the seizures only happen on the commode. He has full body shaking with a postictal phase per her report. Patient has gained 6 pounds today despite peritoneal dialysis therefore their physician referred them to the emergency department. On presentation, patient has dry mucous membranes with hypotension. I suspect that he is intravascularly depleted but extra vascularly overloaded. NS bolus and albumin ordered. Differential diagnosis includes but is not limited to CHF, ESRD, electrolyte abnormality, SABRINA, intracranial abnormality, suspect less likely infection as a source of hypotension. Hypotension improved with fluids and albumin. CBC with mild leukocytosis 11.4. Patient has stable anemia with a hemoglobin of 9.3. Platelet count unremarkable. CMP shows hyponatremia of 129, hypokalemia of 2.7, ESRD with a BUN of 26 and a creatinine of 5.83. This appears to be about patient's baseline. No transaminitis. Albumin low at 2.3. P.o. and IV potassium ordered. Troponin 18 and 22. BNP elevated at 12,009. This is going to be elevated given ESRD. CT of the brain shows old right-sided cerebral infarcts unchanged. Curvilinear areas of high density in the area encephalomalacia of the right temporal lobes, new since the previous study. Most compatible with calcifications. Chest x-ray was personally viewed interpreted by me, ED physician. HD catheter in place. Cardiomegaly. No large effusion, Monia, pneumothorax. Questionable pneumoperitoneum under the right hemidiaphragm. Patient not endorsing any abdominal pain. His abdominal exam is benign however given finding will order CT abdomen pelvis without contrast. CT abdomen pelvis shows small volume pneumoperitoneum compatible with possible hollow viscus perforation. Small volume ascites. Concerning for cirrhosis. Small bilateral pleural effusions. Again patient's abdominal exam is benign. Wonder if pneumoperitoneum is secondary to peritoneal dialysis. However given patient's hypotension, will make him a sepsis alert in case there is a hollow viscus perforation. Sepsis labs added on and will give Zosyn prophylactically. Will not be getting 30 cc/kg bolus given concern for fluid overload. General surgery was consulted and patient was discussed with Dr. Bonilla. Agrees this is likely due to peritoneal dialysis however recommended CT abdomen pelvis with oral contrast to be performed. This was ordered. Lactic acid 2.6. Magnesium level 1.7. INR 2. Blood cultures obtained. Patient does not make urine and therefore UA and urine culture not obtained. CT abdomen pelvis with oral contrast shows small volume pneumoperitoneum, potentially related to peritoneal dialysis but correlate clinically to exclude hollow viscus perforation. This does not meet clinically. Other findings the same. Dr. Bonilla was reconsulted and patient was discussed. No intervention at this time. Patient will need dialysis. I did speak with the patient's as well as patient and his fistula as well as HD catheter work and therefore he can receive HD. Patient will warrant admission for dialysis. Repeat BMP shows improvement in potassium however patient is still hyponatremic at 129. Also needs seizure workup. I spoke with Dr. Vivian who accepted admission. I did reach out to the dialysis group and HD is available tomorrow if needed. EKG: Interpreted by me/EM physician: EKG shows wide QRS complex with PVCs. Known right bundle branch block. Unclear what rhythm suspect possibly junctional. Impression: 1. Volume overload in need of dialysis 2. Hypotension secondary to #1 and being intravascularly depleted 3. Hypokalemia, improved with replacement 4. Hyponatremia 5. Reported seizures 6. ESRD 7. Lactic acidosis Lab Data Labs: Laboratory Results - last 24 hr 06/30/25 06/30/25 06/30/25 14:20 17:10 20:05 WBC 11.4 H RBC 2.73 L Hgb 9.3 L Hct 27.5 L MCV 100.7 H MCH 34.1 H MCHC 33.8 RDW Std Deviation 57.5 H RDW Coeff of Whitney 15.5 H Plt Count 231 MPV 12.6 H Immature Gran % (Auto) 0.700 Neut % (Auto) 86.0 H Lymph % (Auto) 4.4 L [facility] % (Auto) 8.1 Eos % (Auto) 0.6 Baso % (Auto) 0.2 Absolute Neuts (auto) 9.8 H Absolute Lymphs (auto) 0.50 L Nucleated RBC % 0 PT 23.5 H INR 2.0 APTT 38.2 H Sodium 129 L 129 L Potassium 2.7 L* 3.5 Chloride 88 L 90 L Carbon Dioxide 21.2 24.6 Anion Gap 20 H 15 BUN 26 H 27 H Creatinine 5.83 H 5.72 H Estim Creat Clear Calc 13.62 L 13.88 L Est GFR (MDRD) Non-Af 9 L 10 L BUN/Creatinine Ratio 4.5 L 4.7 L Glucose 225 H 201 H Lactic Acid 2.6 H* Calcium 8.0 8.0 Magnesium 1.7 Total Bilirubin 0.29 AST 21 ALT 15 Alkaline Phosphatase 116 Troponin T High Sens 18 D Troponin T Hi Sens 2 Hr 22 [place] [address] H Total Protein 5.0 L Albumin 2.3 L Globulin 2.6 Albumin/Globulin Ratio 0.9 Radiography Diagnostic Testing: Clinical Impression(s) from Imaging Studies Brain CT 06/30/25 15:16 IMPRESSION: Curvilinear areas of high density in the area of encephalomalacia of the right temporal lobe, new since the previous study and most compatible with calcifications. Old right-sided cerebral infarctions, unchanged. Reading Location: [id number] Chest X-Ray 06/30/25 15:17 IMPRESSION: Question of Pneumoperitoneum under the right hemidiaphragm. Neurostimulator seen in the thoracic spinal canal. Central venous catheter seen with tip projecting near the expected junction of the SVC and right atrium. The examination is limited by hypoinflation, AP portable technique, in some patient motion (particularly on lateral views). No pneumothorax or pleural effusion is seen. No evidence of pulmonary edema. No focal infiltrate is identified on this somewhat limited examination. The cardiomediastinal silhouette is stable, without evidence of cardiomegaly. Reading Location: [address] Abdomen/Pelvis CT 06/30/25 16:38 IMPRESSION: Small volume pneumoperitoneum compatible with possible hollow viscus perforation. Small volume ascites. Mildly irregular hepatic surface contour suspicious for cirrhosis. Cholelithiasis without CT evidence of acute cholecystitis. Mild bilateral renal atrophy. Small bilateral pleural effusions. Small sliding hiatal hernia. Reading Location: [address] 06/30/25 21:40 IMPRESSION: Small volume pneumoperitoneum, potentially related to peritoneal dialysis but correlate clinically to exclude hollow viscus perforation. Small to moderate ascites. Mildly irregular hepatic surface contour suspicious for early cirrhosis. Cholelithiasis without CT evidence of cholecystitis. Bilateral renal cortical atrophy with vascular calcifications. Small bilateral pleural effusions and bibasilar atelectasis. Reading Location: [address] Discharge Plan Triage Chief Complaint: General Illness ED Provider: Catalino Jerez Dx/Rx/DC Orders Prescriptions: No Action multivitamin [Daily Multi-Vitamin] Tablet 1 tab PO DAILY tamsulosin 0.4 mg capsule 0.4 mg PO BID docusate sodium 100 mg capsule 100 mg PO BID PRN (Reason: constipation) olanzapine 5 mg tablet 5 mg PO QHS omeprazole 40 mg capsule,delayed release(DR/EC) 40 mg PO QDAY zonisamide 50 mg capsule 50 mg PO BID sertraline 100 mg tablet 100 mg PO QDAY rosuvastatin 20 mg tablet 20 mg PO QDAY aspirin [Adult Low Dose Aspirin] 81 mg tablet,delayed release (DR/EC) 81 mg PO QDAY cholecalciferol (vitamin D3) 25 mcg (1,000 unit) tablet 50 mcg PO DAILY buspirone 15 mg tablet 15 mg PO TID ascorbic acid (vitamin C) 500 mg tablet 1,000 mg PO LUNCH acetaminophen 500 mg tablet 1,000 mg PO Q8H PRN PRN (Reason: Pain 1-10) Qty: 1 0RF ferrous sulfate 325 mg (65 mg iron) tablet 325 mg PO DAILY Qty: 30 0RF Rx Instructions: give this at noon daily with the ferrous sulfate. fenofibrate 54 mg tablet 108 mg PO DAILY amiodarone 200 mg tablet 100 mg PO BID Rx Instructions: TAKE 1/2 TABLET 100MG finasteride 5 mg Tablet 5 mg PO QHS doxycycline hyclate 100 mg capsule 100 mg PO BID ondansetron HCl 4 mg tablet 2 mg PO Q8H insulin glargine [Lantus Solostar U-100 Insulin] 100 unit/mL (3 mL) insulin pen 16 unit subcut QHS Eliquis 5 mg tablet 5 mg PO BID magnesium 250 mg tablet 250 mg PO DAILY polyethylene glycol 3350 [ClearLax] 17 gram/dose powder 17 g PO DAILY PRN (Reason: constipation) dextrose 40 % gel 10 g PO Q15M PRN (Reason: hypoglycemia) Rx Instructions: until symptoms of low blood sugar are controlled insulin lispro [Humalog KwikPen Insulin] 100 unit/mL Insulin Pen 15 unit subcut TIDAC Protocol: 4. Sliding Scale Insulin High-Med Dosing Condition: 150-199 mg/dl = 2 units Condition: 200-259 mg/dl = 4 units Condition: 260-324 mg/dl = 6 units Condition: 325-374 mg/dl = 8 units Condition: 375-409 mg/dl = 10 units Condition: 410-449 mg/dl = 11 units Condition: Greater than 449 call physician Protocol Text: - Use for Total Daily Dose of Insulin 56-80 units - Patient who are insulin resistant or septic HIGH MEDIUM DOSING ALGORITHM torsemide 5 mg tablet 5 mg PO DAILY OXYGEN - Supplemental ([facility] INFORMATIONAL USE ONLY) Patient Comments: 2LPM at HS per RN CPAP - Continuous Positive Airway Pressure([facility] INFORMATIONAL USE ONLY) Patient Comments: unknown setting cephalexin 500 mg capsule 500 mg PO BID 3 Days Qty: 6 0RF Primary Care Provider: Lester Jarvis Referrals: Lester Jarvis MD [Primary Care Provider, [facility]] Print Language: [place]
[2025-06-30] MEDS: Albumin Human 25% (100 mL) 25 GM/100 ML BAG IV ×2 (15:47→17:46)
[2025-06-30 15:51] LABS: Hematocrit 27.5 % (40-54); Hemoglobin 9.3 g/dL (13.0-16.5); Immature Granulocytes Count 0.080 X10^3/uL (0.0-0.0); Mean Corp Hgb Conc 33.8 g/dL (32-36); Mean Corpuscular Volume 100.7 fL (80-94); Mean Platelet Vol. 12.6 fl (6.2-12.0); NRBC Flagged by Analyzer 0 % (0-5); POSITIVE DIFFERENTIAL YES; Platelet Count 231 K/mm3 (150-450); RBC Distribution Width CV 15.5 % (11.6-14.6); RBC Distribution Width SD 57.5 fl (35.1-43.9); Red Blood Count 2.73 M/mm3 (4.6-6.2); White Blood Count 11.4 K/mm3 (4.4-11.0)
[2025-06-30 16:04] LABS: Troponin T High Sensitivity 18 ng/L (<=22)
[2025-06-30 16:12] LABS: AST(SGOT) 21 U/L (<=37); Alanine Aminotransfer ALT/SGPT 15 U/L (<=46); Albumin, Serum 2.3 g/dL (3.4-4.8); Alkaline Phosphatase 116 U/L (40-129); Anion Gap 20 (5-15); BUN 26 mg/dL (4-19); BUN/Creat Ratio 4.5 RATIO (10-20); Calcium,Total 8.0 mg/dL (7.6-11.0); Carbon Dioxide 21.2 mmol/L (21.0-32.0); Chloride 88 mmol/L (98-108); Estimated Creatinine Clearance 13.62 ml/min (50-250); Globulin 2.6 g/dL (2.2-4.2); Glucose 225 mg/dL (70-99); Magnesium 1.7 mg/dL (1.5-2.2); Potassium 2.7 mmol/L (3.3-5.1); Pro- Brain NATRIURETIC PEPTIDE 12009 pg/mL (<=1800)
[2025-06-30] MEDS: 0.9% Normal Saline (1000mL) 1,000 ML 1000 ML IV (16:19)
--- NOTE | 2025-06-30 16:38 | CT_ITS ---
PROCEDURE: ABDOMEN/PELVIS WITHOUT CONT 06/30/2025 REASON FOR EXAM: QUESTIONABLE PNEUMOPERITONEUM ON CHEST X-RAY TECHNIQUE: Procedure Code: CTABDPEL Modality: CT Procedure: ABDOMEN/PELVIS WITHOUT CONT Noncontrast technique limits evaluation of the abdominal and pelvic viscera. Coronal and Sagittal reconstruction series were provided. One or more dose reduction techniques were used (e.g., Automated exposure control, adjustment of the mA and/or kV according to patient size, use of iterative reconstruction technique). COMPARISON: 05/01/2023. FINDINGS: Small bilateral pleural effusions. Mild bilateral flank fat stranding. A spinal stimulator is present. Degenerative changes of the spine. Moderate atherosclerosis. Normal caliber abdominal aorta. No suspicious lymphadenopathy. Small volume free fluid. Small volume pneumoperitoneum. Mildly irregular hepatic surface contour suspicious for cirrhosis. Cholelithiasis. No inflammatory changes surrounding the gallbladder. The pancreas, spleen, adrenals are unremarkable. Mild atrophy of the bilateral kidneys. No hydroureteronephrosis. The urinary bladder is unremarkable. Normal caliber large and small bowel without surrounding inflammatory changes. A few scattered colonic diverticuli. Small sliding hiatal hernia. CT/Abdomen/Pelvis without Cont IMPRESSION: Small volume pneumoperitoneum compatible with possible hollow viscus perforatio n. Small volume ascites. Mildly irregular hepatic surface contour suspicious for cirrhosis. Cholelithiasis without CT evidence of acute cholecystitis. Mild bilateral renal atrophy. Small bilateral pleural effusions. Small sliding hiatal hernia. Reading Location: [id number]
[2025-06-30] MEDS: Potassium Chloride 10mEq/100mL 10 MEQ/100 ML IV.SOLN. 100 MEQ IV BOLUS ×4 (16:52→20:05)
[2025-06-30] MEDS: Potassium Chloride Oral Soln 20 MEQ/15 ML UDC 40 MEQ PO (16:59)
--- NOTE | 2025-06-30 17:09 | ED.RN ---
per dr rodriguez, the patient is not septic and does not require fluid resuscitation.
[2025-06-30 17:49] LABS: Troponin T High Sens 2 HR 22 ng/L (<=22)
--- NOTE | 2025-06-30 19:54 | CM.ED ---
Social Work SW confirmed that patients HCPOA and LW are on file with [facility]. Patient named as primary and son as alternate. Edyta Galarza, IT PROJECT MANAGER, BUSINESS DIVISION CHAIR
[2025-06-30] MEDS: Piperacil/Tazobactam 4.5 GM in 0.9% Normal Saline (100mL MB+) 100 ML IV (20:26)
[2025-06-30 20:43] LABS: Prothrombin Time (Protime)PT. 23.5 SECONDS (11.7-14.9)
[2025-06-30 20:44] LABS: Partial Thromboplast Time 38.2 Seconds (24.1-36.2)
[2025-06-30 20:45] LABS: Anion Gap 15 (5-15); BUN 27 mg/dL (4-19); BUN/Creat Ratio 4.7 RATIO (10-20); Calcium,Total 8.0 mg/dL (7.6-11.0); Carbon Dioxide 24.6 mmol/L (21.0-32.0); Chloride 90 mmol/L (98-108); Estimated Creatinine Clearance 13.88 ml/min (50-250); Glucose 201 mg/dL (70-99); Potassium 3.5 mmol/L (3.3-5.1)
--- NOTE | 2025-06-30 21:40 | CT_ITS ---
PROCEDURE: ABDOMEN/PEL W ORAL CONT ONLY 06/30/2025 REASON FOR EXAM: PNEUMOPERITONEUM, ON PERITONEAL DIALYSIS TECHNIQUE: Procedure Code: CTABDPELPO Modality: CT Procedure: ABDOMEN/PEL W ORAL CONT ONLY Noncontrast technique limits evaluation of the abdominal and pelvic viscera. Coronal and Sagittal reconstruction series were provided. One or more dose reduction techniques were used (e.g., Automated exposure control, adjustment of the mA and/or kV according to patient size, use of iterative reconstruction technique). COMPARISON: 06/30/2025. FINDINGS: Small bilateral pleural effusions. Bilateral lower lobe densities favoring atelectasis but infection can not be excluded. Coronary artery calcifications are present. Bilateral flank fat stranding. Spinal stimulator is present. Degenerative changes of the spine. Degenerative changes of the hips. Moderate atherosclerosis. Normal caliber abdominal aorta. No suspicious lymphadenopathy. Small to moderate volume ascites. Mildly irregular hepatic surface contour possibly representing cirrhotic morphology. Small gallstones. No gallbladder wall thickening or adjacent fat stranding. The pancreas, spleen, and adrenals are unremarkable. Bilateral renal calcifications stroke favored to be vascular. Bilateral kidney atrophy. No hydronephrosis. The urinary bladder is unremarkable. Normal caliber large and small bowel without wall thickening. Small volume pneumoperitoneum. Spinal stimulator is present. CT/Abdomen/Pel W ORAL Cont Only IMPRESSION: Small volume pneumoperitoneum, potentially related to peritoneal dialysis but c orrelate clinically to exclude hollow viscus perforation. Small to moderate ascites. Mildly irregular hepatic surface contour suspicious for early cirrhosis. Cholelithiasis without CT evidence of cholecystitis. Bilateral renal cortical atrophy with vascular calcifications. Small bilateral pleural effusions and bibasilar atelectasis. Reading Location: [id number]
--- NOTE | 2025-06-30 23:40 | PCM.HP.STD ---
[facility] General General Date of Admission: 07/01/25 Date of Service: 06/30/25 Chief Complaint: Fluid Retention and suspected Seizures. HPI Narrative VIVI IRWIN, is a 75 M with a past medical history of essential hypertension; on torsemide, hyperlipidemia; on rosuvastatin plus fenofibrate, obesity (class II); with BMI of 37 this admission, WANDA, DM-2; of unknown control on insulin glargine 16U q. HS plus insulin lispro 6U sq AC, ESRD; on home peritoneal dialysis daily with previous HD () s/p LUE AV-fistula and completely anuric, PAF; on amiodarone BID and apixaban BID plus BASA daily, history of TIA/CVA (2017/with Right MCA CVA s/p thrombectomy at [facility] 11/2021); with Left-sided weakness, suspected seizure disorder after CVA; on zonisamide BID with no history of tonic-clonic seizures, chronic combined systolic and diastolic CHF, history of nonischemic cardiomyopathy, chronic Left knee infection; on lifelong doxycycline BID, chronic LE lymphedema, JUSTINO; on ferrous sulfate, depression with anxiety; on sertraline, buspirone and olanzapine, BPH; on tamsulosin plus finasteride, GERD; on omeprazole, constipation; on polyethylene glycol daily prn, history of clostridium difficile infection (2023), OA; with history of bilateral TKR's with infection plus chronic low back pain s/p discectomy x 2 with spinal stimulator and recent admission here from April 26, 2025 to April 28, 2025 for treatment of general debility secondary to multiple medical problems and recent admission here from June 01, 2025 to June 08, 2025 for treatment of suspected LLE Cellulitis in the setting of previously known Chronic Left Knee Infection with laboratory evidence of Lactic Acidosis of 2.5 mmol/L present on admission suspicious for possible Sepsis complicated by Hypokalemia of 2.5 mmol/L present on admission in the setting of ESRD on HD () who now re-presents to [facility] ER after being sent in by his PCP for fluid retention. Mr. Irwin typically gets peritoneal dialysis daily but he used to be on routine hemodialysis. He no longer makes urine with a ~6 pound weight gain in spite of having peritoneal dialysis with patient having gross anasarca with ~2+ bilateral lower extremity pitting edema resulting in his PCP recommending he come in to the ER for further evaluation and treatment. His informed the ER physician that for the past 3 weeks he has been having intermittent seizure-like activity that coincides with him sitting on the commode with patient notably already on zonisamide twice daily. His informed me that she was only given a few days of midodrine which he ran out of yesterday with no doses given in the past 24 hours. He admits to nausea and shortness of breath but there was no report of fever, chills, runny nose, sore throat, ear pain, chest pain, palpitations, heart racing, abdominal pain, vomiting, diarrhea, dysuria, hematuria, headache or rash. In the ER the patient was initially noted to be Hypotensive at 81/43 mmHg with Leukocytosis of 11.4 K and Lactic Acidosis of 2.6 mmol/L initially concerning for possible sepsis with corresponding CT scan of the abdomen and pelvis with oral contrast that revealed small volume pneumoperitoneum potentially related to peritoneal dialysis with small to moderate ascites and mildly irregular hepatic surface contour suspicious for early cirrhosis in addition to cholelithiasis without CT evidence of cholecystitis with bilateral renal cortical atrophy with vascular calcifications and small bilateral pleural effusions and bibasilar atelectasis. The patient was empirically treated with IV piperacillin-tazobactam with no source of infection identified in addition to receiving 1 L of crystalloids and 1 dose of IV albumin in the setting of pre-existing volume overload with NT pro-BNP II of 12,009 pg/mL present on admission along with mild Hyponatremia 129 mmol/L present on admission. He was then admitted to the PCU for ongoing care for a stay that is expected to extend beyond 2 midnights. [facility] Medical History (Updated 07/01/25 @ 00:[address] Jarod Barlow DO) ESRD (end stage renal disease) on dialysis Chronic anticoagulation Physical debility Arteriovenous fistula of left upper extremity Leg swelling Dyspnea on exertion Fatigue Shortness of breath CKD (chronic kidney disease) Bilateral leg edema Preoperative cardiovascular examination Osteopenia determined by x-ray Aftercare following explantation of knee joint prosthesis Infected prosthetic knee joint Urine retention senior care current use of amiodarone WANDA (obstructive sleep apnea) Cognitive dysfunction Easy bruising Excessive bleeding Gastric reflux Non-smoker A-V fistula History of Clostridium difficile infection Wears dentures Depression Anxiety Insulin dependent diabetes mellitus Walker as ambulation aid Ambulates with cane Arthritis History of renal dialysis High cholesterol Restless legs Back pain Dietary restriction Shortness of breath on exertion Leg cramps History of pain when walking History of edema History of Holter monitoring History of stress test History of echocardiogram Cardiology follow-up encounter Atrial tachycardia History of CVA (cerebrovascular accident) Left-sided weakness Diabetes mellitus, type 2 Persistent atrial fibrillation BPH (benign prostatic hyperplasia) Depression Normochromic normocytic anemia Iron deficiency History of iron deficiency Cerebral artery occlusion with cerebral infarction Acute right MCA stroke Longstanding persistent atrial fibrillation Chronic combined systolic and diastolic CHF (congestive heart failure) 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 (LBBB) Acute on chronic combined systolic (congestive) and diastolic (congestive) heart failure (02/02/20) History of non-ST elevation myocardial infarction (NSTEMI) (02/02/20) Non-ischemic cardiomyopathy NSVT (nonsustained ventricular tachycardia) Obesity CVA (cerebral vascular accident) (12/2017) Secondary pulmonary arterial hypertension GERD (gastroesophageal reflux disease) Hyperlipidemia Essential (primary) hypertension CKD (chronic kidney disease), stage III Paroxysmal atrial fibrillation Anemia Chronic low back pain Osteoarthritis Home Medications Medication Instructions Recorded Last Taken Type multivitamin (Daily Multi-Vitamin 1 tab PO DAILY Supplement 02/12/22 04/25/25 History tablet) tamsulosin 0.4 mg capsule 0.4 mg PO BID Urine retention 02/12/22 04/25/25 History ascorbic acid (vitamin C) 500 mg 1,000 mg PO LUNCH Supplement 02/28/23 04/25/25 History tablet acetaminophen 500 mg tablet 1,000 mg (2 x 500 mg) PO Q8H PRN 03/15/23 04/04/25 Rx PRN Pain 1-10 #1 TAB ferrous sulfate 325 mg (65 mg 325 mg PO DAILY supplement #30 tabs 03/15/23 04/25/25 Rx iron) tablet buspirone 15 mg tablet 15 mg PO TID Mood 11/22/23 04/25/25 History docusate sodium 100 mg capsule 100 mg PO BID PRN constipation 11/22/23 Unknown History olanzapine 5 mg tablet 5 mg PO QHS 11/22/23 04/25/25 History omeprazole 40 mg capsule,delayed 40 mg PO QDAY 11/22/23 04/25/25 History release sertraline 100 mg tablet 100 mg PO QDAY 11/22/23 04/25/25 History zonisamide 50 mg capsule 50 mg PO BID 11/22/23 04/25/25 History aspirin 81 mg tablet,delayed 81 mg PO QDAY Cardiac 12/08/24 04/25/25 History release (Adult Low Dose Aspirin) rosuvastatin 20 mg tablet 20 mg PO QDAY 12/08/24 04/25/25 History cholecalciferol (vitamin D3) 25 50 mcg PO DAILY vitamin supplement 02/18/25 04/25/25 History mcg (1,000 unit) tablet amiodarone 200 mg tablet 100 mg PO BID BP 03/26/25 04/25/25 History fenofibrate 54 mg tablet 108 mg PO DAILY 03/26/25 04/25/25 History finasteride 5 mg tablet 5 mg PO QHS 03/26/25 04/25/25 History apixaban 5 mg tablet (Eliquis) 5 mg PO BID 04/26/25 04/25/25 History dextrose 40 % oral gel 10 g PO Q15M PRN hypoglycemia 04/26/25 Unknown History doxycycline hyclate 100 mg capsule 100 mg PO BID 04/26/25 04/25/25 History insulin glargine 100 unit/mL (3 18 unit subcut QHS Diabetes 04/26/25 04/25/25 History mL) subcutaneous pen (Lantus Solostar U-100 Insulin) insulin lispro 100 unit/mL 15 unit subcut DAILY@0800 04/26/25 04/25/25 History subcutaneous pen (Humalog KwikPen SLIDINING SCALE (U-100) Insulin) magnesium 250 mg tablet 250 mg PO DAILY SUPPLEMENT 04/26/25 04/25/25 History ondansetron HCl 4 mg tablet 2 mg PO Q8H nausea and vomiting 04/26/25 04/25/25 History polyethylene glycol 3350 17 17 g PO DAILY PRN constipation 04/26/25 Unknown History gram/dose oral powder (ClearLax) OXYGEN - Supplemental ([facility] at night 06/03/25 Unknown History INFORMATIONAL USE ONLY) CPAP - Continuous Positive Airway sleep apnea 06/04/25 06/04/25 History Pressure([facility] INFORMATIONAL USE ONLY) insulin lispro 100 unit/mL 17 unit subcut DAILY 07/01/25 Unknown History subcutaneous pen (Humalog KwikPen (U-100) Insulin) insulin lispro 100 unit/mL 19 unit subcut DAILY@1700 07/01/25 Unknown History subcutaneous pen (Humalog KwikPen (U-100) Insulin) midodrine 5 mg tablet 5 mg PO TID 07/01/25 Unknown History Allergy/AdvReac Type Severity Reaction Status Date / Time rofecoxib Allergy Severe Swelling Verified 06/01/25 16:40 Family History Mother Heart disease Sister Heart disease Myocardial infarction CVA (cerebral vascular accident) Diabetes Brother CVA (cerebral vascular accident) Other Persistent atrial fibrillation Surgical History History of insertion of nerve stimulator History of surgery Hx of colonoscopy Hx of lumbar discectomy Hx of total knee arthroplasty History of knee replacement, total Social History household members: spouse Smoking Status: Never smoker alcohol intake: current alcohol intake frequency: holidays/special occasions only Alcohol type: beer substance use type: does not use caffeine: Yes Type: coffee Number of servings: 2 ROS ROS Narrative Review of Systems: Constitutional: Patient denies fever or chills. Eyes: Patient denies changes in vision or discharge from eyes. ENT: Patient denies runny nose, sore throat or ear pain. Resp: Patient admits to shortness of breath but he denies cough. CV: Patient admits to anasarca with ~6 pound weight gain in spite of peritoneal dialysis as per HPI. He denies chest pain, palpitations or heart racing. GI: Patient admits to nausea but he denies vomiting, abdominal pain, diarrhea or constipation. : Patient is an uric. MSK: Patient denies arthralgias or myalgias. Skin: Patient denies rash. Psych: Patient denies symptoms of uncontrolled depression or anxiety. Neuro: Patient's reported to the ER physician suspected seizure activity while patient is sitting on toilet but he denies paresthesias or focal neurologic deficits. Hematology: Patient denies easy bleeding or easy bruisability. Endocrinology: Patient denies polyuria, polydipsia, polyphagia or heat/cold intolerance. 14 point ROS otherwise negative except for positives noted above in HPI. Vital Signs Vital Signs Vital Signs: 06/30/25 14:21 06/30/25 14:21 06/30/25 14:29 Temperature 97.6 F L Temperature Source Oral Pulse Rate 99 Respiratory Rate 22 H Respiratory Pattern Tachypnea Blood Pressure 94/56 L Blood Pressure Mean 68 Pulse Ox 95 100 Oxygen Delivery Method Room Air 06/30/25 14:30 06/30/25 14:45 06/30/25 15:00 Temperature Temperature Source Pulse Rate Respiratory Rate 19 H 20 H 22 H Respiratory Pattern Blood Pressure 75/55 L 77/48 L 78/46 L Blood Pressure Mean 63 57 56 Pulse Ox 100 99 100 Oxygen Delivery Method 06/30/25 15:15 06/30/25 15:15 06/30/25 15:27 Temperature 97.9 F Temperature Source Oral Pulse Rate 96 96 Respiratory Rate 23 H 22 H Respiratory Pattern Blood Pressure 81/43 L 81/43 L 81/43 L Blood Pressure Mean 54 54 55 Pulse Ox 98 94 Oxygen Delivery Method Room Air 06/30/25 15:30 06/30/25 15:47 06/30/25 16:00 Temperature Temperature Source Pulse Rate 87 Respiratory Rate 19 H 15 16 Respiratory Pattern Blood Pressure 92/54 L 75/55 L Blood Pressure Mean 66 64 Pulse Ox 98 100 Oxygen Delivery Method 06/30/25 16:15 06/30/25 16:30 06/30/25 16:30 Temperature Temperature Source Pulse Rate 98 96 Respiratory Rate 17 16 Respiratory Pattern Blood Pressure 86/68 L 93/67 93/67 Blood Pressure Mean 74 75 75 Pulse Ox 100 100 Oxygen Delivery Method 06/30/25 16:45 06/30/25 17:00 06/30/25 18:00 Temperature Temperature Source Pulse Rate 94 91 Respiratory Rate 15 16 Respiratory Pattern Blood Pressure 104/81 H 98/48 L 101/49 L Blood Pressure Mean 89 65 66 Pulse Ox 99 98 Oxygen Delivery Method 06/30/25 18:54 06/30/25 20:00 06/30/25 20:33 Temperature Temperature Source Pulse Rate 92 92 Respiratory Rate 20 H 19 H Respiratory Pattern Blood Pressure 55/28 L 93/66 108/58 L Blood Pressure Mean 37 75 74 Pulse Ox 100 99 Oxygen Delivery Method Room Air Room Air 06/30/25 21:00 06/30/25 22:00 06/30/25 23:37 Temperature 98.5 F Temperature Source Oral Pulse Rate 93 61 89 Respiratory Rate 18 20 H 19 H Respiratory Pattern Blood Pressure 111/81 H 106/47 L 104/54 L Blood Pressure Mean 91 66 70 Pulse Ox 100 100 100 Oxygen Delivery Method Room Air Room Air Room Air Weight Weight: 250 lb 14.177 oz Body Mass Index (BMI) 37.0 Physical Exam Const alert, oriented x3 and no apparent distress Constitutional Narrative: Patient appears chronically ill with moderate anasarca. General Appearance: cooperative HEENT normocephalic, head/scalp atraumatic, hearing grossly normal bilaterally and moist oral mucous membranes Eyes PERRL and EOMs intact bilaterally Neck no lymphadenopathy and supple Resp Resp Narrative: Diminished breath sounds at bases with Right HD catheter without signs of cellulitis. Cardio regular rate and regular rhythm GI normal to inspection, nondistended, normoactive bowel sounds, soft to palpation, non-tender and non-distended Extremity Extremity Narrative: ~2+ bilateral LE pitting edema with anasarca. Left fistula with good thrill. No rash noted. Skin Skin Narrative: No rash noted. Neuro oriented x3, CN's II-XII intact bilaterally, moves all extremities and no focal motor deficits Sensorium / Orientation: awake, alert, oriented to person, oriented to place and oriented to time Speech: speech normal Psych affect normal Results Medical Records Data Attestation: I reviewed the patient's medical records Lab / Micro Data Attestation: I reviewed the patient's lab results. 06/30/25 14:20 06/30/25 20:05 Labs: Laboratory Results - last 24 hr 06/30/25 14:20: WBC 11.4 H, RBC 2.73 L, Hgb 9.3 L, Hct 27.5 L, MCV 100.7 H, MCH 34.1 H, MCHC 33.8, RDW Std Deviation 57.5 H, RDW Coeff of Whitney 15.5 H, Plt Count 231, MPV 12.6 H, Immature Gran % (Auto) 0.700, Neut % (Auto) 86.0 H, Lymph % (Auto) 4.4 L, [place] % (Auto) 8.1, Eos % (Auto) 0.6, Baso % (Auto) 0.2, Absolute Neuts (auto) 9.8 H, Absolute Lymphs (auto) 0.50 L, Nucleated RBC % 0, Sodium 129 L, Potassium 2.7 L*, Chloride 88 L, Carbon Dioxide 21.2, Anion Gap 20 H, BUN 26 H, Creatinine 5.83 H, Estim Creat Clear Calc 13.62 L, Est GFR (MDRD) Non-Af 9 L, BUN/Creatinine Ratio 4.5 L, Glucose 225 H, Calcium 8.0, Magnesium 1.7, Total Bilirubin 0.29, AST 21, ALT 15, Alkaline Phosphatase 116, Troponin T High Sens 18 D, [place] [address] H, Total Protein 5.0 L, Albumin 2.3 L, Globulin 2.6, Albumin/Globulin Ratio 0.9 06/30/25 17:10: Troponin T Hi Sens 2 Hr 22 06/30/25 20:05: PT 23.5 H, INR 2.0, APTT 38.2 H, Sodium 129 L, Potassium 3.5, Chloride 90 L, Carbon Dioxide 24.6, Anion Gap 15, BUN 27 H, Creatinine 5.72 H, Estim Creat Clear Calc 13.88 L, Est GFR (MDRD) Non-Af 10 L, BUN/Creatinine Ratio 4.7 L, Glucose 201 H, Lactic Acid 2.6 H*, Calcium 8.0 Imaging Radiology Impression Brain CT 06/30/25 15:16 IMPRESSION: Curvilinear areas of high density in the area of encephalomalacia of the right temporal lobe, new since the previous study and most compatible with calcifications. Old right-sided cerebral infarctions, unchanged. Reading Location: [id number] Chest X-Ray 06/30/25 15:17 IMPRESSION: Question of Pneumoperitoneum under the right hemidiaphragm. Neurostimulator seen in the thoracic spinal canal. Central venous catheter seen with tip projecting near the expected junction of the SVC and right atrium. The examination is limited by hypoinflation, AP portable technique, in some patient motion (particularly on lateral views). No pneumothorax or pleural effusion is seen. No evidence of pulmonary edema. No focal infiltrate is identified on this somewhat limited examination. The cardiomediastinal silhouette is stable, without evidence of cardiomegaly. Reading Location: [address] Abdomen/Pelvis CT 06/30/25 16:38 IMPRESSION: Small volume pneumoperitoneum compatible with possible hollow viscus perforation. Small volume ascites. Mildly irregular hepatic surface contour suspicious for cirrhosis. Cholelithiasis without CT evidence of acute cholecystitis. Mild bilateral renal atrophy. Small bilateral pleural effusions. Small sliding hiatal hernia. Reading Location: [address] 06/30/25 21:40 IMPRESSION: Small volume pneumoperitoneum, potentially related to peritoneal dialysis but correlate clinically to exclude hollow viscus perforation. Small to moderate ascites. Mildly irregular hepatic surface contour suspicious for early cirrhosis. Cholelithiasis without CT evidence of cholecystitis. Bilateral renal cortical atrophy with vascular calcifications. Small bilateral pleural effusions and bibasilar atelectasis. Reading Location: [address] Assessment & Plan Assessment/Plan (1) Hypotension: QUALIFIERS: Hypotension type: unspecified hypotension type Qualified Code(s): I95.9 - Hypotension, unspecified (2) Lactic acidosis: (3) ESRD (end stage renal disease) on dialysis: (4) Seizure as late effect of cerebrovascular accident (CVA): (5) History of atrial fibrillation: (6) Chronic anticoagulation: (7) Obesity (BMI 30-39.9): PLAN: Plan 1. Hypotensive at 81/43 mmHg with Leukocytosis of 11.4 K and Lactic Acidosis of 2.6 mmol/L initally concerning for possible sepsis with corresponding CT scan of the abdomen and pelvis with oral contrast that revealed small volume pneumoperitoneum potentially related to peritoneal dialysis with small to moderate ascites and mildly irregular hepatic surface contour suspicious for early cirrhosis in addition to cholelithiasis without CT evidence of cholecystitis with bilateral renal cortical atrophy with vascular calcifications and small bilateral pleural effusions and bibasilar atelectasis. The patient was empirically treated with IV piperacillin-tazobactam with no source of infection identified in addition to receiving 1 L of crystalloids and 1 dose of IV albumin in the setting of pre-existing volume overload with NT pro-BNP II of 12,009 pg/mL present on admission - Admit to PCU for treatment under the Sepsis protocol with a low-index of clinical suspicion for underlying infection. Stop empiric IV piperacillin-tazobactam with a history of Clostridium difficile colitis outlined in #19. Finally, we will consult nephrology to see this patient on rounds in the a.m. to expedite needed HD without appreciated in advance. 2. Questionable seizure activity with patient sitting on toilet in the setting of previous CVA; with suspected seizure disorder on zonisamide to twice daily complicating #1 - Patient suspected to have vasovagal syncope mimicking seizure-like activity due to persistent hypotension. He was previously prescribed midodrine with recent missed doses in the past 24 hours likely exacerbating this problem. We will restart midodrine and check EEG to evaluate for possible underlying seizure activity. 3. Recent admission here from June 01, 2025 to June 08, 2025 for treatment of suspected LLE Cellulitis in the setting of previously known Chronic Left Knee Infection with laboratory evidence of Lactic Acidosis of 2.5 mmol/L present on admission suspicious for possible Sepsis complicated by Hypokalemia of 2.5 mmol/L present on admission in the setting of ESRD on HD () - Noted. 4. PAF; on amiodarone BID and apixaban BID plus BASA daily adding to the medical complexity of #1 - #3 - Maintain current treatment. 5. Obesity (class II); with BMI of 37 this admission plus WANDA adding to the burden of disease outlined from #1 - #4 - Weight loss will be recommended. This complicates his case and may hamper recovery. 6. Recent admission here from April 26, 2025 to April 28, 2025 for treatment of general debility secondary to multiple medical problems - Noted with unfortunate evolving pattern of serial readmission. 7. History of TIA/CVA (2018/with Right MCA CVA s/p thrombectomy at [facility] 11/2021); with Left-sided weakness - Stable. 8. Suspected seizure disorder after CVA; on zonisamide BID with no history of tonic-clonic seizures - Continue zonisamide as previous. Check EEG as outlined in #2. 9. DM-2; of unknown control on insulin glargine 16U q. HS plus insulin lispro 6U sq AC - Cut insulin doses by ~30% to minimize risk of iatrogenic hypoglycemia. ADA diet. FSBS q. AC/HS plus SSI. 10. History of CAD; s/p NSTEMI (2019) - Noted. 11. Depression with anxiety; on sertraline, buspirone and olanzapine - Continue current therapy. 12. Essential hypertension and chronic combined systolic and diastolic CHF (2019); on torsemide - Hold loop diuretic in light of #1. 13. Hyperlipidemia; on rosuvastatin plus fenofibrate - Maintain present treatment and check Lipid Profile. 14. History of nonischemic cardiomyopathy - Noted. 15. JUSTINO; on ferrous sulfate - Stable with hemoglobin of 10.2 g/dL and MCV of 102.7 fL present on admission. Check B12 and Folate levels with macrocytosis. 16. BPH; on tamsulosin plus finasteride - Maintain current regimen. 17. GERD; on omeprazole - Resume PPI. 18. Constipation; on polyethylene glycol daily prn - Continue prn polyethylene glycol. 19. History of clostridium difficile infection (2023) - We will watch closely for signs of diarrhea. 20. OA; with history of bilateral TKR's with infection plus chronic low back pain s/p discectomy x 2 with spinal stimulator - Continue acetaminophen prn as outlined in #1. 21. DVT prophylaxis - Patient already on apixaban for #4 which will be continued. Total time: Approximately (but not less than) 75 minutes. Sepsis Attestation Sepsis Attestation: Sepsis Ruled Out Date exam was performed: 07/01/25 Time exam was performed: 00:15 Possible Source of Sepsis: Other Sepsis Organ Dysfunction Criteria Present: SBP < 90 mmHg or MAP < 65 mmHg, SBP decrease of more than 40 mmHg and Lactic Acid > 2 mmol/L Supportive Findings: Patient is not suspected to have sepsis as he has no source of infection, no fever and no Left-shift. This portion was only completed because sepsis alert was called in ER. Fluid Resuscitation Fluid Resuscitation ordered: Lesser volume fluid bolus ordered Amount of fluid ordered: 1 Reason for lesser fluid bolus:: Concern for fluid overload (Patient has elevated NT pro-BNP II of 12,009 pg/mL present on admission with obvious pre-existing volume overload contraindicating normal fluid bolus.) Sepsis Note Date exam was performed: 07/01/25 Time exam was performed: 04:15 Sepsis Attestation: Sepsis re-evaluation was performed Response to fluids: Fluid responsive hypotension Charges/Coding Visit Charges Inpatient E&M: 48118 Init Hosp L3
[2025-07-01] VITALS (18 sets, daily range): BP systolic 80–136; BP diastolic 37–64; PULSE 76–101; RESP 14–23; TEMP 36.3–37.2; O2SAT 96–100; BMI 36.5; BMI 36.6; BMI 35.7
[2025-07-01 00:12] LABS: Reflex Lactate? Y
[2025-07-01 04:36] LABS: Reflex Lactate? Y
--- NOTE | 2025-07-01 08:50 | PCM.PN.HOSP ---
Reason for Visit Chief Complaint: Fluid Retention and suspected Seizures. Subjective Subjective Had been feeling ill for a few days prior to arrival. Objective Data Objective Data Vital Signs: Vital Signs Temp Pulse Resp BP Pulse Ox O2 Del Method 36.3 C L 88 18 106/46 L 97 Room Air 07/01/25 03:01 07/01/25 03:01 07/01/25 03:01 07/01/25 05:18 07/01/25 03:51 07/01/25 03:51 Oxygen Delivery Method Room Air Weight: 112.1 kg Body Mass Index (BMI) 36.5 Intake & Output: Intake and Output for Last 24 Hours 06/29/25 06/30/25 07/01/25 23:59 23:59 23:59 Intake Total 1200 / 1200 Balance 1200 / 1200 Lab / Micro Data 06/30/25 14:20 06/30/25 20:05 Labs: Laboratory Results - last 24 hr 06/30/25 14:20: WBC 11.4 H, RBC 2.73 L, Hgb 9.3 L, Hct 27.5 L, MCV 100.7 H, MCH 34.1 H, MCHC 33.8, RDW Std Deviation 57.5 H, RDW Coeff of Whitney 15.5 H, Plt Count 231, MPV 12.6 H, Immature Gran % (Auto) 0.700, Neut % (Auto) 86.0 H, Lymph % (Auto) 4.4 L, [place] % (Auto) 8.1, Eos % (Auto) 0.6, Baso % (Auto) 0.2, Absolute Neuts (auto) 9.8 H, Absolute Lymphs (auto) 0.50 L, Nucleated RBC % 0, Sodium 129 L, Potassium 2.7 L*, Chloride 88 L, Carbon Dioxide 21.2, Anion Gap 20 H, BUN 26 H, Creatinine 5.83 H, Estim Creat Clear Calc 13.62 L, Est GFR (MDRD) Non-Af 9 L, BUN/Creatinine Ratio 4.5 L, Glucose 225 H, Calcium 8.0, Magnesium 1.7, Total Bilirubin 0.29, AST 21, ALT 15, Alkaline Phosphatase 116, Troponin T High Sens 18 D, [place] [address] H, Total Protein 5.0 L, Albumin 2.3 L, Globulin 2.6, Albumin/Globulin Ratio 0.9 06/30/25 17:10: Troponin T Hi Sens 2 Hr 22 06/30/25 20:05: PT 23.5 H, INR 2.0, APTT 38.2 H, Sodium 129 L, Potassium 3.5, Chloride 90 L, Carbon Dioxide 24.6, Anion Gap 15, BUN 27 H, Creatinine 5.72 H, Estim Creat Clear Calc 13.88 L, Est GFR (MDRD) Non-Af 10 L, BUN/Creatinine Ratio 4.7 L, Glucose 201 H, Lactic Acid 2.6 H*, Calcium 8.0 07/01/25 00:32: Lactic Acid 2.7 H* 07/01/25 06:10: Lactic Acid 1.9 Micro: Microbiology 07/01/25 01:42 Stool Stool Lactoferrin - Final 07/01/25 01:42 Stool Clostridioides difficile (PCR) - Final 07/01/25 01:42 Stool Stool Occult Blood (SAUD) - Final Occult Blood Positive Radiography Diagnostic Testing: Radiology Impression Brain CT 06/30/25 15:16 IMPRESSION: Curvilinear areas of high density in the area of encephalomalacia of the right temporal lobe, new since the previous study and most compatible with calcifications. Old right-sided cerebral infarctions, unchanged. Reading Location: [id number] Chest X-Ray 06/30/25 15:17 IMPRESSION: Question of Pneumoperitoneum under the right hemidiaphragm. Neurostimulator seen in the thoracic spinal canal. Central venous catheter seen with tip projecting near the expected junction of the SVC and right atrium. The examination is limited by hypoinflation, AP portable technique, in some patient motion (particularly on lateral views). No pneumothorax or pleural effusion is seen. No evidence of pulmonary edema. No focal infiltrate is identified on this somewhat limited examination. The cardiomediastinal silhouette is stable, without evidence of cardiomegaly. Reading Location: [address] Abdomen/Pelvis CT 06/30/25 16:38 IMPRESSION: Small volume pneumoperitoneum compatible with possible hollow viscus perforation. Small volume ascites. Mildly irregular hepatic surface contour suspicious for cirrhosis. Cholelithiasis without CT evidence of acute cholecystitis. Mild bilateral renal atrophy. Small bilateral pleural effusions. Small sliding hiatal hernia. Reading Location: [address] 06/30/25 21:40 IMPRESSION: Small volume pneumoperitoneum, potentially related to peritoneal dialysis but correlate clinically to exclude hollow viscus perforation. Small to moderate ascites. Mildly irregular hepatic surface contour suspicious for early cirrhosis. Cholelithiasis without CT evidence of cholecystitis. Bilateral renal cortical atrophy with vascular calcifications. Small bilateral pleural effusions and bibasilar atelectasis. Reading Location: [address] Physical Exam Const alert and no apparent distress Constitutional Narrative: Up in bed on hemodiaylsis. HEENT head/scalp atraumatic and moist oral mucous membranes Resp normal respiratory effort, no retractions, no use of accessory muscles and clear to auscultation bilaterally Cardio regular rate, regular rhythm, S1 normal heart sound and S2 normal heart sound GI normal to inspection, nondistended, normoactive bowel sounds, soft to palpation, non-tender and non-distended Extremity Extremity Narrative: tight bilateral lower extremity edema. Edema in LUE. Neuro Sensorium / Orientation: awake and alert Psych affect normal Assessment & Plan Assessment/Plan (1) Hypotension: QUALIFIERS: Hypotension type: unspecified hypotension type Qualified Code(s): I95.9 - Hypotension, unspecified (2) Lactic acidosis: (3) ESRD (end stage renal disease) on dialysis: (4) Seizure as late effect of cerebrovascular accident (CVA): (5) History of atrial fibrillation: (6) Chronic anticoagulation: (7) Obesity (BMI 30-39.9): PLAN: Plan Hypotensive has been a chronic issues. currently stab. esuspect vasovagal. at 81/43 mmHg with Leukocytosis of 11.4 K and Lactic Acidosis of 2.6 mmol/L initally concerning for possible sepsis with corresponding CT scan of the abdomen and pelvis with oral contrast that revealed small volume pneumoperitoneum potentially related to peritoneal dialysis with small to moderate ascites and mildly irregular hepatic surface contour suspicious for early cirrhosis in addition to cholelithiasis without CT evidence of cholecystitis with bilateral renal cortical atrophy with vascular calcifications and small bilateral pleural effusions and bibasilar atelectasis. The patient was empirically treated with IV piperacillin-tazobactam with no source of infection identified in addition to receiving 1 L of crystalloids and 1 dose of IV albumin in the setting of pre-existing volume overload with NT pro-BNP II of 12,009 pg/mL present on admission - Admit to PCU for treatment under the Sepsis protocol with a low-index of clinical suspicion for underlying infection. Stop empiric IV piperacillin-tazobactam with a history of Clostridium difficile colitis outlined in #19. Finally, we will consult nephrology to see this patient on rounds in the a.m. to expedite needed HD without appreciated in advance. Syncope suspect vasovagal. He was previously prescribed midodrine with recent missed doses in the past 24 hours likely exacerbating this problem. We will restart midodrine and check EEG to evaluate for possible underlying seizure activity. Anasarca Pt put on 6 kg since last admission, despite PD Pt to have fluid drawn off today and tomorrow. Chronic conditions: PAF; on amiodarone BID and apixaban BID plus BASA daily adding to the medical complexity of #1 - #3 - Maintain current treatment. Obesity (class II); with BMI of 37 this admission plus WANDA adding to the burden of disease outlined from #1 - #4 - Weight loss will be recommended. This complicates his case and may hamper recovery. History of TIA/CVA (2017/with Right MCA CVA s/p thrombectomy at [facility] 11/2021); with Left-sided weakness Suspected seizure disorder after CVA; on zonisamide BID with no history of tonic-clonic seizures - Continue zonisamide as previous. Check EEG as outlined in #2. DM-2; of unknown control on insulin glargine 16U q. HS plus insulin lispro 6U sq AC - Cut insulin doses by ~30% to minimize risk of iatrogenic hypoglycemia. ADA diet. FSBS q. AC/HS plus SSI. History of CAD; s/p NSTEMI (2019) Depression with anxiety; on sertraline, buspirone and olanzapine - Continue current therapy. Essential hypertension and chronic combined systolic and diastolic CHF (2019); on torsemide - Hold loop diuretic Hyperlipidemia; on rosuvastatin plus fenofibrate - Maintain present treatment and check Lipid Profile. nonischemic cardiomyopathy JUSTINO; on ferrous sulfate - Stable with hemoglobin of 10.2 g/dL and MCV of 102.7 fL present on admission. Check B12 and Folate levels with macrocytosis. BPH; on tamsulosin plus finasteride - Maintain current regimen. GERD; on omeprazole - Resume PPI. Constipation; on polyethylene glycol daily prn - Continue prn polyethylene glycol. History of clostridium difficile infection (2023) - We will watch closely for signs of diarrhea. OA; with history of bilateral TKR's with infection plus chronic low back pain s/p discectomy x 2 with spinal stimulator - Continue acetaminophen prn as outlined in #1. DVT prophylaxis - Patient already on apixaban f Charges/Coding Visit Charges Inpatient E&M: 53124 Subs Hosp L2
[2025-07-01] MEDS: Magnesium Chloride 64 MG Delay Rel.Tablet PO (10:13)
[2025-07-01] MEDS: Aspirin E.C. 81 MG Tablet PO (10:13)
[2025-07-01] MEDS: Cholecalciferol (VIT D3) 25 MCG TABLET (1,000 UNITS) 50 MCG PO (10:13)
[2025-07-01] MEDS: APIXABAN 5 MG TABLET PO ×2 (10:13→21:40)
[2025-07-01] MEDS: 0.9% Normal Saline 1,000 ML IV.SOLN. 1000 ML OPERA.SITE (10:47)
[2025-07-01] MEDS: 0.9% Saline Lock 10 ML Syringe IV (14:13)
--- NOTE | 2025-07-01 19:04 | PCM.CONS.R ---
Assessment & Plan Assessment/Plan (1) ESRD (end stage renal disease): PLAN: started on PD. not doing well. gains a lot of fluid and unable to remove in PD. no urine output which makes it complicated. discussed with patient and . this is second admission with fluid overload. dont think PD will work out. switch to HD. They were asking about home HD. main issue for him is low BP. was not feeling well on HD due to low BP values. can try HHD but will need to be trained. is ok trying HHD with catheter. fistula is present but not ready yet. HPI Consult Data Date of Consult: 07/01/25 HPI Narrative Reason for Consultation: ESRD HPI Narrative: VIVI SAINI, is a 75 M who presents to the hospital with anasarca, edema. nephrology on consult due to ESRD. on PD at home. recently struggling with PD. we changed script multiple times. added eicodextran. unfortunately has fluid overload again. [facility] Medical History (Updated 07/01/25 @ 19:[address] Anuja Sanchez MD) ESRD (end stage renal disease) on dialysis Chronic anticoagulation Physical debility Arteriovenous fistula of left upper extremity Leg swelling Dyspnea on exertion Fatigue Shortness of breath CKD (chronic kidney disease) Bilateral leg edema Preoperative cardiovascular examination Osteopenia determined by x-ray Aftercare following explantation of knee joint prosthesis Infected prosthetic knee joint Urine retention half-way current use of amiodarone WANDA (obstructive sleep apnea) Cognitive dysfunction Easy bruising Excessive bleeding Gastric reflux Non-smoker A-V fistula History of Clostridium difficile infection Wears dentures Depression Anxiety Insulin dependent diabetes mellitus Walker as ambulation aid Ambulates with cane Arthritis History of renal dialysis High cholesterol Restless legs Back pain Dietary restriction Shortness of breath on exertion Leg cramps History of pain when walking History of edema History of Holter monitoring History of stress test History of echocardiogram Cardiology follow-up encounter Atrial tachycardia History of CVA (cerebrovascular accident) Left-sided weakness Diabetes mellitus, type 2 Persistent atrial fibrillation BPH (benign prostatic hyperplasia) Depression Normochromic normocytic anemia Iron deficiency History of iron deficiency Cerebral artery occlusion with cerebral infarction Acute right MCA stroke Longstanding persistent atrial fibrillation Chronic combined systolic and diastolic CHF (congestive heart failure) 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 (LBBB) Acute on chronic combined systolic (congestive) and diastolic (congestive) heart failure (02/02/20) History of non-ST elevation myocardial infarction (NSTEMI) (02/02/20) Non-ischemic cardiomyopathy NSVT (nonsustained ventricular tachycardia) Obesity CVA (cerebral vascular accident) (12/2017) Secondary pulmonary arterial hypertension GERD (gastroesophageal reflux disease) Hyperlipidemia Essential (primary) hypertension CKD (chronic kidney disease), stage III Paroxysmal atrial fibrillation Anemia Chronic low back pain Osteoarthritis Home Medications Medication Instructions Recorded Last Taken Type multivitamin (Daily Multi-Vitamin 1 tab PO DAILY Supplement 02/12/22 04/25/25 History tablet) tamsulosin 0.4 mg capsule 0.4 mg PO BID Urine retention 02/12/22 04/25/25 History ascorbic acid (vitamin C) 500 mg 1,000 mg PO LUNCH Supplement 02/28/23 04/25/25 History tablet acetaminophen 500 mg tablet 1,000 mg (2 x 500 mg) PO Q8H PRN 03/15/23 04/04/25 Rx PRN Pain 1-10 #1 TAB ferrous sulfate 325 mg (65 mg 325 mg PO DAILY supplement #30 tabs 03/15/23 04/25/25 Rx iron) tablet buspirone 15 mg tablet 15 mg PO TID Mood 11/22/23 04/25/25 History docusate sodium 100 mg capsule 100 mg PO BID PRN constipation 11/22/23 Unknown History olanzapine 5 mg tablet 5 mg PO QHS 11/22/23 04/25/25 History omeprazole 40 mg capsule,delayed 40 mg PO QDAY 11/22/23 04/25/25 History release sertraline 100 mg tablet 100 mg PO QDAY 11/22/23 04/25/25 History zonisamide 50 mg capsule 50 mg PO BID 11/22/23 04/25/25 History aspirin 81 mg tablet,delayed 81 mg PO QDAY Cardiac 12/08/24 04/25/25 History release (Adult Low Dose Aspirin) rosuvastatin 20 mg tablet 20 mg PO QDAY 12/08/24 04/25/25 History cholecalciferol (vitamin D3) 25 50 mcg PO DAILY vitamin supplement 02/18/25 04/25/25 History mcg (1,000 unit) tablet amiodarone 200 mg tablet 100 mg PO BID BP 03/26/25 04/25/25 History fenofibrate 54 mg tablet 108 mg PO DAILY 03/26/25 04/25/25 History finasteride 5 mg tablet 5 mg PO QHS 03/26/25 04/25/25 History apixaban 5 mg tablet (Eliquis) 5 mg PO BID 04/26/25 04/25/25 History dextrose 40 % oral gel 10 g PO Q15M PRN hypoglycemia 04/26/25 Unknown History doxycycline hyclate 100 mg capsule 100 mg PO BID 04/26/25 04/25/25 History insulin glargine 100 unit/mL (3 18 unit subcut QHS Diabetes 04/26/25 04/25/25 History mL) subcutaneous pen (Lantus Solostar U-100 Insulin) insulin lispro 100 unit/mL 15 unit subcut DAILY@0800 04/26/25 04/25/25 History subcutaneous pen (Humalog KwikPen SLIDINING SCALE (U-100) Insulin) magnesium 250 mg tablet 250 mg PO DAILY SUPPLEMENT 04/26/25 04/25/25 History ondansetron HCl 4 mg tablet 2 mg PO Q8H nausea and vomiting 04/26/25 04/25/25 History polyethylene glycol 3350 17 17 g PO DAILY PRN constipation 04/26/25 Unknown History gram/dose oral powder (ClearLax) OXYGEN - Supplemental ([facility] at night 06/03/25 Unknown History INFORMATIONAL USE ONLY) CPAP - Continuous Positive Airway sleep apnea 06/04/25 06/04/25 History Pressure([facility] INFORMATIONAL USE ONLY) insulin lispro 100 unit/mL 17 unit subcut DAILY 07/01/25 Unknown History subcutaneous pen (Humalog KwikPen (U-100) Insulin) insulin lispro 100 unit/mL 19 unit subcut DAILY@1700 07/01/25 Unknown History subcutaneous pen (Humalog KwikPen (U-100) Insulin) midodrine 5 mg tablet 5 mg PO TID 07/01/25 Unknown History Allergy/AdvReac Type Severity Reaction Status Date / Time rofecoxib Allergy Severe Swelling Verified 06/01/25 16:40 Family History Mother Heart disease Sister Heart disease Myocardial infarction CVA (cerebral vascular accident) Diabetes Brother CVA (cerebral vascular accident) Other Persistent atrial fibrillation Surgical History History of insertion of nerve stimulator History of surgery Hx of colonoscopy Hx of lumbar discectomy Hx of total knee arthroplasty History of knee replacement, total Social History household members: spouse Smoking Status: Never smoker alcohol intake: current alcohol intake frequency: holidays/special occasions only Alcohol type: beer substance use type: does not use caffeine: Yes Type: coffee Number of servings: 2 ROS ROS Narrative negative except above Physical Exam Narrative Alert awake oriented x 3 no obvious distress no pallor no icterus no JVD s1s2 no murmurs lungs clear abdomen soft no organomegaly ++ edema Lab / Micro Data 06/30/25 14:20 06/30/25 20:05 Labs: Laboratory Results - last 24 hr 06/30/25 20:05: PT 23.5 H, INR 2.0, APTT 38.2 H, Sodium 129 L, Potassium 3.5, Chloride 90 L, Carbon Dioxide 24.6, Anion Gap 15, BUN 27 H, Creatinine 5.72 H, Estim Creat Clear Calc 13.88 L, Est GFR (MDRD) Non-Af 10 L, BUN/Creatinine Ratio 4.7 L, Glucose 201 H, Lactic Acid 2.6 H*, Calcium 8.0 07/01/25 00:32: Lactic Acid 2.7 H* 07/01/25 06:10: Lactic Acid 1.9 07/01/25 17:48: POC Glucose 267 H Micro: Microbiology 07/01/25 04:10 Stool Enteric Bacteriology - Final 07/01/25 01:42 Stool Stool Lactoferrin - Final 07/01/25 01:42 Stool Clostridioides difficile (PCR) - Final 07/01/25 01:42 Stool Stool Occult Blood (SAUD) - Final Occult Blood Positive Imaging Radiology Impression Abdomen/Pelvis CT 06/30/25 16:38 IMPRESSION: Small volume pneumoperitoneum compatible with possible hollow viscus perforation. Small volume ascites. Mildly irregular hepatic surface contour suspicious for cirrhosis. Cholelithiasis without CT evidence of acute cholecystitis. Mild bilateral renal atrophy. Small bilateral pleural effusions. Small sliding hiatal hernia. Reading Location: [address] 06/30/25 21:40 IMPRESSION: Small volume pneumoperitoneum, potentially related to peritoneal dialysis but correlate clinically to exclude hollow viscus perforation. Small to moderate ascites. Mildly irregular hepatic surface contour suspicious for early cirrhosis. Cholelithiasis without CT evidence of cholecystitis. Bilateral renal cortical atrophy with vascular calcifications. Small bilateral pleural effusions and bibasilar atelectasis. Reading Location: [id number]
[2025-07-01] MEDS: OLANZapine 5 MG/TAB TAB.RAPDIS PO (21:42)
[2025-07-01] MEDS: Insulin Glargine-YFGN 100 UNIT/ML Pen 10 UNIT SC (21:48)
[2025-07-02] VITALS (12 sets, daily range): BP systolic 105–139; BP diastolic 30–79; PULSE 67–95; RESP 14–18; TEMP 36.4–37.1; O2SAT 97–100; BMI 35.7; BMI 34.7
[2025-07-02] MEDS: 0.9% Saline Lock 10 ML Syringe IV ×3 (00:17→12:37)
--- NOTE | 2025-07-02 08:33 | PN.HOSP_ITS ---
Reason for Visit Chief Complaint: Fluid Retention and suspected Seizures. Subjective Subjective Feeling better. Decreased LE edema. Objective Data Objective Data Vital Signs: Vital Signs Temp Pulse Resp BP Pulse Ox O2 Del Method 36.4 C L 84 18 118/45 L 100 Room Air 07/02/25 05:32 07/02/25 05:32 07/02/25 05:32 07/02/25 05:32 07/02/25 05:32 07/02/25 05:32 Oxygen Delivery Method Room Air Weight: 109.5 kg Body Mass Index (BMI) 35.7 Intake & Output: Intake and Output for Last 24 Hours 06/30/25 07/01/25 07/02/25 23:59 23:59 23:59 Intake Total 1200 / 1200 400 / 400 Output Total 3000 / 3000 Balance 1200 / 1200 -2600 / -2600 Lab / Micro Data 06/30/25 14:20 06/30/25 20:05 Labs: Laboratory Results - last 24 hr 07/01/25 09:43: POC Glucose 229 H 07/01/25 17:48: POC Glucose 267 H 07/01/25 21:48: POC Glucose 248 H Micro: Microbiology 07/01/25 04:10 Stool Enteric Bacteriology - Final 07/01/25 01:42 Stool Stool Lactoferrin - Final 07/01/25 01:42 Stool Clostridioides difficile (PCR) - Final 07/01/25 01:42 Stool Stool Occult Blood (SAUD) - Final Occult Blood Positive Physical Exam Const alert and no apparent distress Constitutional Narrative: in bed on HD. HEENT head/scalp atraumatic and moist oral mucous membranes Resp normal respiratory effort, no retractions, no use of accessory muscles and clear to auscultation bilaterally Cardio regular rate, regular rhythm, S1 normal heart sound and S2 normal heart sound GI normal to inspection, nondistended, normoactive bowel sounds, soft to palpation, non-tender and non-distended Extremity normal to inspection and full ROM Neuro Sensorium / Orientation: awake and alert Assessment & Plan Assessment/Plan (1) Hypotension: QUALIFIERS: Hypotension type: unspecified hypotension type Q ualified Code(s): I95.9 - Hypotension, unspecified (2) Lactic acidosis: (3) ESRD (end stage renal disease) on dialysis: (4) Seizure as late effect of cerebrovascular accident (CVA): (5) History of atrial fibrillation: (6) Chronic anticoagulation: (7) Obesity (BMI 30-39.9): PLAN: Plan Hypotensive * resolved * Has suspected vasovagal. No additional workup. Since resolved. Syncope * suspect vasovagal. * He was previously prescribed midodrine with recent missed doses in the past 24 hours likely exacerbating this problem. We will restart midodrine and check EEG to evaluate for possible underlying seizure activity. Anasarca * Pt put on 6 kg since last admission, despite PD * Pt to have fluid drawn off yesterday and today * Weight down 4kg thus far, negative 1.4 liters. End-stage renal disease * Patient had been on peritoneal dialysis but not taking off fluid effectively. Plan is for the patient eventually going home dialysis but in the meantime patient will be on outpatient dialysis starting this coming Saturday. Received hemodialysis while he was here. Chronic conditions: * PAF; on amiodarone BID and apixaban BID plus BASA daily adding to the medical complexity of #1 - #3 - Maintain current treatment. * Obesity (class II); with BMI of 37 this admission plus WANDA adding to the burden of disease outlined from #1 - #4 - Weight loss will be recommended. This complicates his case and may hamper recovery. * History of TIA/CVA (2017/with Right MCA CVA s/p thrombectomy at [facility] 11/2021); with Left-sided weakness * Suspected seizure disorder after CVA; on zonisamide BID with no history of tonic-clonic seizures - Continue zonisamide as previous. Check EEG as outlined in #2. * DM-2; of unknown control on insulin glargine 16U q. HS plus insulin lispro 6U sq AC - Cut insulin doses by ~30% to minimize risk of iatrogenic hypoglycemia. ADA diet. FSBS q. AC/HS plus SSI. * History of CAD; s/p NSTEMI (2019) * Depression with anxiety; on sertraline, buspirone and olanzapine - Continue current therapy. * Essential hypertension and chronic combined systolic and diastolic CHF (2019); on torsemide - Hold loop diuretic * Hyperlipidemia; on rosuvastatin plus fenofibrate - Maintain present treatment and check Lipid Profile. * nonischemic cardiomyopathy * JUSTINO; on ferrous sulfate - Stable with hemoglobin of 10.2 g/dL and MCV of 102.7 fL present on admission. Check B12 and Folate levels with macrocytosis. * BPH; on tamsulosin plus finasteride - Maintain current regimen. * GERD; on omeprazole - Resume PPI. * Constipation; on polyethylene glycol daily prn - Continue prn polyethylene glycol. * History of clostridium difficile infection (2023) - We will watch closely for signs of diarrhea. * OA; with history of bilateral TKR's with infection plus chronic low back pain s/p discectomy x 2 with spinal stimulator - Continue acetaminophen prn as outlined in #1. DVT prophylaxis - Patient already on apixaban
[2025-07-02] MEDS: Magnesium Chloride 64 MG Delay Rel.Tablet PO (09:07)
[2025-07-02] MEDS: APIXABAN 5 MG TABLET PO (09:07)
[2025-07-02] MEDS: Aspirin E.C. 81 MG Tablet PO (09:08)
[2025-07-02] MEDS: Cholecalciferol (VIT D3) 25 MCG TABLET (1,000 UNITS) 50 MCG PO (09:09)
[2025-07-02] MEDS: 0.9% Normal Saline 1,000 ML IV.SOLN. 1000 ML OPERA.SITE (09:25)
[2025-07-02] MEDS: PureFlow B 3K Dialysis Soln 1 BAG 6 BAG PF (09:33)
--- NOTE | 2025-07-02 10:04 | CASEMGMT ---
Addendum entered by Zakia Valentine 07/02/25 10:15: [facility] confirmed that pt is active and receives PT/SN. Zakia Valentine DC Planning Asst. Original Note: Discharge Planning SABRINA sent via [facility] to [facility] with note asking for verification of services. Awaiting response. Zakia Valentine DC Planning Asst.
--- NOTE | 2025-07-02 10:41 | CASEMGMT ---
Addendum entered by Tanya Murguia 07/02/25 14:59: Therapy evals completed. Per PT/OT, pt is weak & deconditioned and recommend pt staying one more night before discharging home. ANA PAULA OCHOA spoke w/both pt and and discussed weakness and concerns. They do not feel pt needs to go to a SNF stating they think once pt is able to rest that he will be safe being home. Initially and pt stated would like pt to stay one more night, but after further discussion, states she will contact their son and grandson and have them help get pt into the home and into his recliner safely. states pt sleeps in his recliner and would be fine once he got situated in that. Dr Neal aware of all of the above. Addendum entered by Tanya Murguia 07/02/25 14:15: states they will use [facility] to transport pt to and from OP HD, as they have done in the past. She states she has already contacted them and they are not available to transport pt on Saturday morning. They are available the other days. ANA PAULA OCHOA offered to call [facility] to see if they have a different chair time on Saturday, but she declines, stating she will be able to transport him. ANA PAULA OCHOA inquired if there are steps to get pt in/out of the home. She states they use a chair lift for this. She states her son will also be available to help her get him out of the car when they arrive @ home today. She denies having other discharge needs. Original Note: ANA PAULA OCHOA NOTE: ANA PALUA OCHOA to room. Spoke w/pt and who state plan is for pt to start going to [facility] for OP HD instead of continuing w/PD @ home. The plan is to do the OP HD there for 2 weeks and then start education for home HD after that. Dr Neal is aware & states pt is medically ready to discharge today. Call placed to [facility] and spoke w/Sofía. She confirms the above plan, is aware pt is ready to discharge today, and states pt can come to OP HD @ [facility] on Thursday 07/05, arrival time 0750. Pt will then be on a MWF treatment schedule. Pt & made aware of above and voice appreciation and are agreeable to the plan. informed ANA PAULA HARRIS did call her to schedule appt & left a VM. She plans to call them back this morning. Pt and deny having other discharge needs or concerns. Plan: Home w/[facility] & start OP HD @ [facility] on Thursday 07/05 Colleen JOHNSON RN, CM
--- NOTE | 2025-07-02 11:43 | DS.PCM_ITS ---
Providers Date of Admission: 07/01/25 Primary Care Physician: Dr. Lester Jarvis MD Consultations 07/01/25 01:18 Consult: Nephrology Routine Consulting Provider: Anuja Sanchez Reason for Consult: ESRD on HD; with anasarca. EMERGENT Consult: No MD Notified: Yes Date Notified: 07/01/25 Time Notified: 04:54 Method of Notification: Answering Service Reason For Visit: HYPOTENSION & LACTIC ACIDOSIS W/O SOURCE OF Diagnosis Discharge Diagnosis (1) Hypotension: Status: Acute Code(s): I95.9 - Hypotension, unspecified Qualifiers: Hypotension type: unspecified hypotension type Qualified Code(s): I95.9 - Hypotension, unspecified (2) Lactic acidosis: Status: Acute Code(s): E87.20 - Acidosis, unspecified (3) ESRD (end stage renal disease) on dialysis: Status: Acute Code(s): N18.6 - End stage renal disease; Z99.2 - Dependence on renal dialysis (4) Seizure as late effect of cerebrovascular accident (CVA): Status: Acute Code(s): I69.398 - Other sequelae of cerebral infarction; R56.9 - Unspecified convulsions (5) History of atrial fibrillation: Status: Acute Code(s): Z86.79 - Personal history of other diseases of the circulatory system (6) Chronic anticoagulation: Status: Acute Code(s): Z79.01 - superintendent terminal (current) use of 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s (7) Obesity (BMI 30-39.9): Status: Acute Code(s): E66.9 - Obesity, unspecified Plan Hypotensive * resolved * Has suspected vasovagal. No additional workup. Since resolved. Syncope * suspect vasovagal. * He was previously prescribed midodrine with recent missed doses in the past 24 hours likely exacerbating this problem. We will restart midodrine and check EEG to evaluate for possible underlying seizure activity. Anasarca * Pt put on 6 kg since last admission, despite PD * Pt to have fluid drawn off yesterday and today * Weight down 4kg thus far, negative 1.4 liters. End-stage renal disease * Patient had been on peritoneal dialysis but not taking off fluid effectively. Plan is for the patient eventually going home dialysis but in the meantime patient will be on outpatient dialysis starting this coming Saturday. Received hemodialysis while he was here. Chronic conditions: * PAF; on amiodarone BID and apixaban BID plus BASA daily adding to the medical complexity of #1 - #3 - Maintain current treatment. * Obesity (class II); with BMI of 37 this admission plus WANDA adding to the burden of disease outlined from #1 - #4 - Weight loss will be recommended. This complicates his case and may hamper recovery. * History of TIA/CVA (2017/with Right MCA CVA s/p thrombectomy at [facility] 11/2021); with Left-sided weakness * Suspected seizure disorder after CVA; on zonisamide BID with no history of tonic-clonic seizures - Continue zonisamide as previous. Check EEG as outlined in #2. * DM-2; of unknown control on insulin glargine 16U q. HS plus insulin lispro 6U sq AC - Cut insulin doses by ~30% to minimize risk of iatrogenic hypoglycemia. ADA diet. FSBS q. AC/HS plus SSI. * History of CAD; s/p NSTEMI (2019) * Depression with anxiety; on sertraline, buspirone and olanzapine - Continue current therapy. * Essential hypertension and chronic combined systolic and diastolic CHF (2019); on torsemide - Hold loop diuretic * Hyperlipidemia; on rosuvastatin plus fenofibrate - Maintain present treatment and check Lipid Profile. * nonischemic cardiomyopathy * JUSTINO; on ferrous sulfate - Stable with hemoglobin of 10.2 g/dL and MCV of 102.7 fL present on admission. Check B12 and Folate levels with macrocytosis. * BPH; on tamsulosin plus finasteride - Maintain current regimen. * GERD; on omeprazole - Resume PPI. * Constipation; on polyethylene glycol daily prn - Continue prn polyethylene glycol. * History of clostridium difficile infection (2023) - We will watch closely for signs of diarrhea. * OA; with history of bilateral TKR's with infection plus chronic low back pain s/p discectomy x 2 with spinal stimulator - Continue acetaminophen prn as outlined in #1. DVT prophylaxis - Patient already on apixaban Medications at Discharge Home Medications multivitamin (Daily Multi-Vitamin tablet) 1 tab PO DAILY Supplement 02/12/22 tamsulosin 0.4 mg capsule 0.4 mg PO BID Urine retention 02/12/22 ascorbic acid (vitamin C) 500 mg tablet 1,000 mg PO LUNCH Supplement 02/28/23 acetaminophen 500 mg tablet 1,000 mg (2 x 500 mg) PO Q8H PRN PRN Pain 1-10 #1 TAB 03/15/23 ferrous sulfate 325 mg (65 mg iron) tablet 325 mg PO DAILY supplement #30 tabs 03/15/23 buspirone 15 mg tablet 15 mg PO TID Mood 11/22/23 docusate sodium 100 mg capsule 100 mg PO BID PRN constipation 11/22/23 olanzapine 5 mg tablet 5 mg PO QHS 11/22/23 omeprazole 40 mg capsule,delayed release 40 mg PO QDAY 11/22/23 sertraline 100 mg tablet 100 mg PO QDAY 11/22/23 zonisamide 50 mg capsule 50 mg PO BID 11/22/23 aspirin 81 mg tablet,delayed release (Adult Low Dose Aspirin) 81 mg PO QDAY Cardiac 12/08/24 rosuvastatin 20 mg tablet 20 mg PO QDAY 12/08/24 cholecalciferol (vitamin D3) 25 mcg (1,000 unit) tablet 50 mcg PO DAILY vitamin supplement 02/18/25 amiodarone 200 mg tablet 100 mg PO BID BP 03/26/25 fenofibrate 54 mg tablet 108 mg PO DAILY 03/26/25 finasteride 5 mg tablet 5 mg PO QHS 03/26/25 apixaban 5 mg tablet (Eliquis) 5 mg PO BID 04/26/25 dextrose 40 % oral gel 10 g PO Q15M PRN hypoglycemia 04/26/25 doxycycline hyclate 100 mg capsule 100 mg PO BID 04/26/25 insulin glargine 100 unit/mL (3 mL) subcutaneous pen (Lantus Solostar U-100 Insulin) 18 unit subcut QHS Diabetes 04/26/25 insulin lispro 100 unit/mL subcutaneous pen (Humalog KwikPen (U-100) Insulin) 15 unit subcut DAILY@0800 SLIDINING SCALE 04/26/25 magnesium 250 mg tablet 250 mg PO DAILY SUPPLEMENT 04/26/25 ondansetron HCl 4 mg tablet 2 mg PO Q8H nausea and vomiting 04/26/25 polyethylene glycol 3350 17 gram/dose oral powder (ClearLax) 17 g PO DAILY PRN constipation 04/26/25 OXYGEN - Supplemental ([facility] INFORMATIONAL USE ONLY) at night 06/03/25 CPAP - Continuous Positive Airway Pressure([facility] INFORMATIONAL USE ONLY) sleep apnea 06/04/25 insulin lispro 100 unit/mL subcutaneous pen (Humalog KwikPen (U-100) Insulin) 17 unit subcut DAILY 07/01/25 insulin lispro 100 unit/mL subcutaneous pen (Humalog KwikPen (U-100) Insulin) 19 unit subcut DAILY@1700 07/01/25 midodrine 5 mg tablet 5 mg PO TID 07/01/25 Hospital Course Summary of Care Provided Hospital Course: Greater than 30 minutes spent on discharge This is a 25-year-old male with end-stage renal disease on dialysis. Patient has put on roughly 6 kg despite being on peritoneal dialysis. Had a syncopal episode due to vasovagal syncope which led to him being hospitalized. Because of his weight gain and anasarca, he was dialyzed. He had much fluid removed and his weight is gone down considerably since he has been here though he is still volume overloaded. He will be discharged to home and will be doing outpatient hemodialysis for the next couple weeks and then we will have home dialysis arranged. He will stop peritoneal dialysis and follow-up with his general surgeon to have his peritoneal dialysis catheter removed. He does have a tunneled hemodialysis catheter in his right upper chest which is being used but fortunately his fistula in his left upper extremity is not able to be used at this time. Weight / BMI Weight Weight: 109.5 kg Body Mass Index (BMI) 35.7 ABG / Lab / Microbiology Data 06/30/25 14:20 06/30/25 20:05 Laboratory: Laboratory Results - last 24 hr 07/01/25 09:43: POC Glucose 229 H 07/01/25 17:48: POC Glucose 267 H 07/01/25 21:48: POC Glucose 248 H Microbiology: Microbiology 07/01/25 04:10 Stool Enteric Bacteriology - Final 07/01/25 01:42 Stool Stool Lactoferrin - Final 07/01/25 01:42 Stool Clostridioides difficile (PCR) - Final 07/01/25 01:42 Stool Stool Occult Blood (SAUD) - Final Occult Blood Positive D/C Instructions DC O2, CPAP, BIPAP Needs Home O2 Discharge instructions: Yes Type of respiratory needs?: Oxygen Oxygen frequency: With Sleeping Oxygen liters per minute when sleepin DC home with Oxygen: Yes Home O2 MD Review: I have reviewed the oxygen testing, and the patient qualifies for home oxygen equipment and portability. The patient is mobile in the home and the community. Meaningful Use Info Meaningful Use Meaningful Use Diagnoses (Choose all that apply): None applicable Discharge Plan Admission Admit Date/Time: 07/01/25 00:09 Primary Reason for Your Visit: [facility] Attending Provider: Quan Neal Primary Care Provider: Lester Jarvis Consulting Providers: Sanam Caal; Angelita Sanders; Rosetta Marcelo; Ananth Marino; Power Mujica; Monse Whitmore; CLIFF CAMPBELL; Shelbie Ramírez; Georgiana Ennis; Truong Goldsmith; Evelyne Bills; Anuja Sanchez; Jarod Barlow Discharge Orders/Prescriptions Prescriptions: Continued multivitamin [Daily Multi-Vitamin] Tablet 1 tab PO DAILY tamsulosin 0.4 mg capsule 0.4 mg PO BID docusate sodium 100 mg capsule 100 mg PO BID PRN (Reason: constipation) olanzapine 5 mg tablet 5 mg PO QHS omeprazole 40 mg capsule,delayed release(DR/EC) 40 mg PO QDAY zonisamide 50 mg capsule 50 mg PO BID sertraline 100 mg tablet 100 mg PO QDAY rosuvastatin 20 mg tablet 20 mg PO QDAY aspirin [Adult Low Dose Aspirin] 81 mg tablet,delayed release (DR/EC) 81 mg PO QDAY cholecalciferol (vitamin D3) 25 mcg (1,000 unit) tablet 50 mcg PO DAILY buspirone 15 mg tablet 15 mg PO TID ascorbic acid (vitamin C) 500 mg tablet 1,000 mg PO LUNCH acetaminophen 500 mg tablet 1,000 mg PO Q8H PRN PRN (Reason: Pain 1-10) Qty: 1 0RF ferrous sulfate 325 mg (65 mg iron) tablet 325 mg PO DAILY Qty: 30 0RF Rx Instructions: give this at noon daily with the ferrous sulfate. fenofibrate 54 mg tablet 108 mg PO DAILY amiodarone 200 mg tablet 100 mg PO BID Rx Instructions: TAKE 1/2 TABLET 100MG finasteride 5 mg Tablet 5 mg PO QHS doxycycline hyclate 100 mg capsule 100 mg PO BID ondansetron HCl 4 mg tablet 2 mg PO Q8H insulin glargine [Lantus Solostar U-100 Insulin] 100 unit/mL (3 mL) insulin pen 18 unit subcut QHS Eliquis 5 mg tablet 5 mg PO BID magnesium 250 mg tablet 250 mg PO DAILY polyethylene glycol 3350 [ClearLax] 17 gram/dose powder 17 g PO DAILY PRN (Reason: constipation) dextrose 40 % gel 10 g PO Q15M PRN (Reason: hypoglycemia) Rx Instructions: until symptoms of low blood sugar are controlled insulin lispro [Humalog KwikPen Insulin] 100 unit/mL Insulin Pen 15 unit subcut DAILY@0800 Protocol: 4. Sliding Scale Insulin High-Med Dosing Condition: 150-199 mg/dl = 2 units Condition: 200-259 mg/dl = 4 units Condition: 260-324 mg/dl = 6 units Condition: 325-374 mg/dl = 8 units Condition: 375-409 mg/dl = 10 units Condition: 410-449 mg/dl = 11 units Condition: Greater than 449 call physician Protocol Text: - Use for Total Daily Dose of Insulin 56-80 units - Patient who are insulin resistant or septic HIGH MEDIUM DOSING ALGORITHM OXYGEN - Supplemental ([facility] INFORMATIONAL USE ONLY) Patient Comments: 2LPM at HS per RN CPAP - Continuous Positive Airway Pressure([facility] INFORMATIONAL USE ONLY) Patient Comments: unknown setting insulin lispro [Humalog KwikPen Insulin] 100 unit/mL insulin pen 17 unit subcut DAILY insulin lispro [Humalog KwikPen Insulin] 100 unit/mL insulin pen 19 unit subcut DAILY@1700 midodrine 5 mg tablet 5 mg PO TID Rx Instructions: do not give last dose of day after 6PM or within 4 hrs of bedtime hold if sbp>110 or dbp >70 Referrals / Follow Up: Lester Jarvis MD [Primary Care Provider, Family Practice] - [facility]] Referral Note: Every Saturday, Saturday, Saturday until home dialysis is arranged. Disposition Disposition (needs filled in before D/C Order can be placed): Home Health Service Charges/Coding Visit Charges Inpatient E&M: 29447 Disch Hosp >30min
--- NOTE | 2025-07-02 12:46 | PHA.DC.MR.R ---
Pharmacy CT Med Reconciliation Pharmacy Service has performed discharge medication reconciliation for this patient. The patient's discharge medication list was reviewed for discrepancies and discrepancies were resolved. Medications at Discharge Home Medications multivitamin (Daily Multi-Vitamin tablet) 1 tab PO DAILY Supplement 02/12/22 tamsulosin 0.4 mg capsule 0.4 mg PO BID Urine retention 02/12/22 ascorbic acid (vitamin C) 500 mg tablet 1,000 mg PO LUNCH Supplement 02/28/23 acetaminophen 500 mg tablet 1,000 mg (2 x 500 mg) PO Q8H PRN PRN Pain 1-10 #1 TAB 03/15/23 ferrous sulfate 325 mg (65 mg iron) tablet 325 mg PO DAILY supplement #30 tabs 03/15/23 buspirone 15 mg tablet 15 mg PO TID Mood 11/22/23 docusate sodium 100 mg capsule 100 mg PO BID PRN constipation 11/22/23 olanzapine 5 mg tablet 5 mg PO QHS mental health 11/22/23 omeprazole 40 mg capsule,delayed release 40 mg PO QDAY reflux 11/22/23 sertraline 100 mg tablet 100 mg PO QDAY mental health 11/22/23 zonisamide 50 mg capsule 50 mg PO BID seizures 11/22/23 aspirin 81 mg tablet,delayed release (Adult Low Dose Aspirin) 81 mg PO QDAY Cardiac 12/08/24 rosuvastatin 20 mg tablet 20 mg PO QDAY cholesterol 12/08/24 cholecalciferol (vitamin D3) 25 mcg (1,000 unit) tablet 50 mcg PO DAILY vitamin supplement 02/18/25 amiodarone 200 mg tablet 100 mg PO BID BP 03/26/25 fenofibrate 54 mg tablet 108 mg PO DAILY cholesterol 03/26/25 finasteride 5 mg tablet 5 mg PO QHS prostate 03/26/25 apixaban 5 mg tablet (Eliquis) 5 mg PO BID elequis 04/26/25 dextrose 40 % oral gel 10 g PO Q15M PRN hypoglycemia 04/26/25 doxycycline hyclate 100 mg capsule 100 mg PO BID infection 04/26/25 insulin glargine 100 unit/mL (3 mL) subcutaneous pen (Lantus Solostar U-100 Insulin) 18 unit subcut QHS Diabetes 04/26/25 insulin lispro 100 unit/mL subcutaneous pen (Humalog KwikPen (U-100) Insulin) 15 unit subcut DAILY@0800 SLIDINING SCALE 04/26/25 magnesium 250 mg tablet 250 mg PO DAILY SUPPLEMENT 04/26/25 ondansetron HCl 4 mg tablet 2 mg PO Q8H nausea and vomiting 04/26/25 polyethylene glycol 3350 17 gram/dose oral powder (ClearLax) 17 g PO DAILY PRN constipation 04/26/25 OXYGEN - Supplemental ([facility] INFORMATIONAL USE ONLY) at night 06/03/25 CPAP - Continuous Positive Airway Pressure([facility] INFORMATIONAL USE ONLY) sleep apnea 06/04/25 insulin lispro 100 unit/mL subcutaneous pen (Humalog KwikPen (U-100) Insulin) 17 unit subcut DAILY diabetes 07/01/25 insulin lispro 100 unit/mL subcutaneous pen (Humalog KwikPen (U-100) Insulin) 19 unit subcut DAILY@1700 diabetes 07/01/25 midodrine 5 mg tablet 5 mg PO TID blood pressure 07/01/25
--- NOTE | 2025-07-02 13:08 | CASEMGMT ---
Discharge Planning Clinicals, S[facility] order, and DC Summary sent via [facility] to [facility] . Zkaia Valentine DC Planning Asst.
--- NOTE | 2025-07-02 16:19 | PCM.PN.REN ---
Subjective Subjective no new events Objective Data Objective Data Vital Signs: Vital Signs Temp Pulse Resp BP Pulse Ox O2 Del Method 97.8 F 84 14 119/48 L 100 Room Air 07/02/25 12:58 07/02/25 12:58 07/02/25 12:58 07/02/25 12:58 07/02/25 12:58 07/02/25 12:58 Oxygen Delivery Method Room Air Weight: 106.4 kg Body Mass Index (BMI) 34.7 Intake & Output: Intake and Output for Last 24 Hours 06/30/25 07/01/25 07/02/25 23:59 23:59 23:59 Intake Total 1200 / 1200 400 / 400 Output Total 3000 / 3000 3100 / 3100 Balance 1200 / 1200 -2600 / -2600 -3100 / -3100 Lab / Micro Data 06/30/25 14:20 06/30/25 20:05 Labs: Laboratory Results - last 24 hr 07/01/25 09:43: POC Glucose 229 H 07/01/25 17:48: POC Glucose 267 H 07/01/25 21:48: POC Glucose 248 H Micro: Microbiology 07/01/25 04:10 Stool Enteric Bacteriology - Final 07/01/25 01:42 Stool Stool Lactoferrin - Final 07/01/25 01:42 Stool Clostridioides difficile (PCR) - Final 07/01/25 01:42 Stool Stool Occult Blood (SAUD) - Final Occult Blood Positive Physical Exam Narrative Alert awake oriented x 3 no obvious distress no pallor no icterus no JVD s1s2 no murmurs lungs clear abdomen soft no organomegaly ++ edema Assessment & Plan Assessment/Plan (1) ESRD (end stage renal disease): PLAN: agreeable to switch to HD. start with [facility] HD and later home HD. dw .
== END 2025-07-02 15:18 | disposition home health service (06) | DRG 640 ==
LOC: ED 07-01 00:29 → PCU 07-01 00:38
PROVIDERS: Admitting Provider Internal Medicine; Emergency Provider Surgery; PCP Family Medicine
DX: E87.70 Fluid overload, unspecified (principal); N18.6 End stage renal disease; I13.2 Hypertensive heart and chronic kidney disease with heart failure and with stage 5 chronic kidney disease, or end stage renal disease; I42.8 Other cardiomyopathies; I69.354 Hemiplegia and hemiparesis following cerebral infarction affecting left non-dominant side; I50.42 Chronic combined systolic (congestive) and diastolic (congestive) heart failure; E87.20 Acidosis, unspecified; G40.909 Epilepsy, unspecified, not intractable, without status epilepticus; I48.0 Paroxysmal atrial fibrillation; E11.22 Type 2 diabetes mellitus with diabetic chronic kidney disease; D50.9 Iron deficiency anemia, unspecified; F32.A Depression, unspecified; Z68.37 Body mass index [BMI] 37.0-37.9, adult; I69.398 Other sequelae of cerebral infarction; Z99.2 Dependence on renal dialysis; I25.10 Atherosclerotic heart disease of native coronary artery without angina pectoris; Z79.4 Long term (current) use of insulin; K21.9 Gastro-esophageal reflux disease without esophagitis; G47.33 Obstructive sleep apnea (adult) (pediatric); E78.5 Hyperlipidemia, unspecified; F41.9 Anxiety disorder, unspecified; I25.2 Old myocardial infarction; E66.812 Obesity, class 2; N40.0 Benign prostatic hyperplasia without lower urinary tract symptoms; Z79.01 Long term (current) use of 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s; Z79.899 Other long term (current) drug therapy; Z79.82 Long term (current) use of aspirin
CPT/HCPCS: 36415; 70450; 71046; 74176; 80048; 80053; 82274; 82962; 83605; 83630; 83735; 83880; 84484; 85025; 85610; 85730; 87040; 87177; 87209; 87493; 87506; 90937; 93005; 94762; 95819; 97162; 97166; 99285; P9047; A4216; G0257; J2405

== ENCOUNTER 2025-07-05 20:58 | Inpatient (IN) | payer MEDICARE, MEDICAID, SELFPAY ==
[2025-07-05 21:00] VITALS: BP 79/37; PULSE 90; RESP 20; TEMP 36.5; O2SAT 93; BMI 36.6
[2025-07-05 21:11] VITALS: O2SAT 95
[2025-07-05 22:00] VITALS: BP 82/31; PULSE 92; RESP 18; O2SAT 93
--- NOTE | 2025-07-05 22:10 | RAD_ITS ---
PROCEDURE: RAD/Chest 1 View (Portable)
[2025-07-05 22:26] LABS: Hematocrit 25.1 % (40-54); Hemoglobin 8.0 g/dL (13.0-16.5); Immature Granulocytes Count 0.190 X10^3/uL (0.0-0.0); Mean Corp Hgb Conc 31.9 g/dL (32-36); Mean Corpuscular Volume 105.0 fL (80-94); Mean Platelet Vol. 11.7 fl (6.2-12.0); NRBC Flagged by Analyzer 0 % (0-5); POSITIVE DIFFERENTIAL YES; Platelet Count 273 K/mm3 (150-450); RBC Distribution Width CV 14.9 % (11.6-14.6); RBC Distribution Width SD 58.0 fl (35.1-43.9); Red Blood Count 2.39 M/mm3 (4.6-6.2); White Blood Count 8.0 K/mm3 (4.4-11.0)
--- NOTE | 2025-07-05 22:36 | CT_ITS ---
PROCEDURE: CT/Brain/Head without Contrast
--- NOTE | 2025-07-05 22:36 | CT_ITS ---
PROCEDURE: CT/Spine Cervical without Contras
--- NOTE | 2025-07-05 22:40 | RAD_ITS ---
PROCEDURE: RAD/Pelvis 1 or 2 Views
[2025-07-05 22:49] LABS: Magnesium 2.1 mg/dL (1.5-2.2)
[2025-07-05] MEDS: Albumin Human 25% (100 mL) 25 GM/100 ML BAG IV (22:53)
[2025-07-05 23:00] VITALS: BP 83/47; PULSE 90; RESP 16; O2SAT 93
[2025-07-05 23:09] LABS: Anion Gap 23 (5-15); BUN 43 mg/dL (4-19); BUN/Creat Ratio 5.4 RATIO (10-20); Calcium,Total 8.4 mg/dL (7.6-11.0); Carbon Dioxide 14.1 mmol/L (21.0-32.0); Chloride 97 mmol/L (98-108); Estimated Creatinine Clearance 9.88 ml/min (50-250); Glucose 287 mg/dL (70-99); Potassium 4.6 mmol/L (3.3-5.1)
--- NOTE | 2025-07-05 23:09 | ED.RN ---
Critical creatinine of 7.[address] Rivera notified.
[2025-07-05 23:41] LABS: SITE Not entered; VBG BASE EXCESS -7 mmol/L (-1.0-3.5); VBG PO2 26 mmHg (25-40); VBG SO2 43 % (50-70); VBG TCO2 20 mmol/L (23-33)
[2025-07-06] VITALS (26 sets, daily range): BP systolic 68–108; BP diastolic 42–66; PULSE 86–99; RESP 14–19; TEMP 36.1–37.1; O2SAT 87–100; BMI 35.4; BMI 35.5; BMI 35.2
--- NOTE | 2025-07-06 | PCM.HP.STD ---
[facility] General General Date of Admission: 07/05/25 Date of Service: 07/05/25 Chief Complaint: Generalized weakness and falls at home HPI Narrative VIVI SAINI, is a 75 M who presents to the emergency room with chief complaint of generalized weakness and frequent falls at home. Patient had 2 falls earlier today and feels he is unable to support himself safely at home. Patient has significant past medical history of end-stage renal disease and is dialysis dependent, last dialysis was Saturday and he sees Dr. Sanchez. Patient denies any chest pain, shortness of breath, fevers or chills, nausea vomiting or diarrhea at present time. Laboratory studies reveal white blood cell count of 8.0, hemoglobin 8.0, hematocrit 25.1, platelets 273, sodium 134, potassium 4.6, chloride 97, bicarb 14.1, BUN 43, creatinine 7.98, x-ray pelvis is negative, cervical spine CT negative, brain CT negative, chest x-ray negative for pneumonia. Patient will be admitted to general medical floor, nephrology consult for new dialysis and case management consult for rehab placement. Patient wishes to be full code verified. [facility] Medical History (Updated 07/06/25 @ 00:[address] Jhon Morrow MD) ESRD (end stage renal disease) on dialysis Chronic anticoagulation Physical debility Arteriovenous fistula of left upper extremity Leg swelling Dyspnea on exertion Fatigue Shortness of breath CKD (chronic kidney disease) Bilateral leg edema Preoperative cardiovascular examination Osteopenia determined by x-ray Aftercare following explantation of knee joint prosthesis Infected prosthetic knee joint Urine retention halfway current use of amiodarone WANDA (obstructive sleep apnea) Cognitive dysfunction Easy bruising Excessive bleeding Gastric reflux Non-smoker A-V fistula History of Clostridium difficile infection Wears dentures Depression Anxiety Insulin dependent diabetes mellitus Walker as ambulation aid Ambulates with cane Arthritis History of renal dialysis High cholesterol Restless legs Back pain Dietary restriction Shortness of breath on exertion Leg cramps History of pain when walking History of edema History of Holter monitoring History of stress test History of echocardiogram Cardiology follow-up encounter Atrial tachycardia History of CVA (cerebrovascular accident) Left-sided weakness Diabetes mellitus, type 2 Persistent atrial fibrillation BPH (benign prostatic hyperplasia) Depression Normochromic normocytic anemia Iron deficiency History of iron deficiency Cerebral artery occlusion with cerebral infarction Acute right MCA stroke Longstanding persistent atrial fibrillation Chronic combined systolic and diastolic CHF (congestive heart failure) 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 (LBBB) Acute on chronic combined systolic (congestive) and diastolic (congestive) heart failure (02/02/20) History of non-ST elevation myocardial infarction (NSTEMI) (02/02/20) Non-ischemic cardiomyopathy NSVT (nonsustained ventricular tachycardia) Obesity CVA (cerebral vascular accident) (12/2017) Secondary pulmonary arterial hypertension GERD (gastroesophageal reflux disease) Hyperlipidemia Essential (primary) hypertension CKD (chronic kidney disease), stage III Paroxysmal atrial fibrillation Anemia Chronic low back pain Osteoarthritis Home Medications ?Medication ?Instructions ?Recorded ?Last Taken ?Type multivitamin (Daily Multi-Vitamin 1 tab PO DAILY Supplement 02/12/22 04/25/25 History tablet) tamsulosin 0.4 mg capsule 0.4 mg PO BID Urine retention 02/12/22 04/25/25 History ascorbic acid (vitamin C) 500 mg 1,000 mg PO LUNCH Supplement 02/28/23 04/25/25 History tablet acetaminophen 500 mg tablet 1,000 mg (2 x 500 mg) PO Q8H PRN 03/15/23 04/04/25 Rx PRN Pain 1-10 #1 TAB ferrous sulfate 325 mg (65 mg 325 mg PO DAILY supplement #30 tabs 03/15/23 04/25/25 Rx iron) tablet buspirone 15 mg tablet 15 mg PO TID Mood 11/22/23 04/25/25 History docusate sodium 100 mg capsule 100 mg PO BID PRN constipation 11/22/23 Unknown History olanzapine 5 mg tablet 5 mg PO QHS mental health 11/22/23 04/25/25 History omeprazole 40 mg capsule,delayed 40 mg PO QDAY reflux 11/22/23 04/25/25 History release sertraline 100 mg tablet 100 mg PO QDAY mental health 11/22/23 04/25/25 History zonisamide 50 mg capsule 50 mg PO BID seizures 11/22/23 04/25/25 History aspirin 81 mg tablet,delayed 81 mg PO QDAY Cardiac 12/08/24 04/25/25 History release (Adult Low Dose Aspirin) rosuvastatin 20 mg tablet 20 mg PO QDAY cholesterol 12/08/24 04/25/25 History cholecalciferol (vitamin D3) 25 50 mcg PO DAILY vitamin supplement 02/18/25 04/25/25 History mcg (1,000 unit) tablet amiodarone 200 mg tablet 100 mg PO BID BP 03/26/25 04/25/25 History fenofibrate 54 mg tablet 108 mg PO DAILY cholesterol 03/26/25 04/25/25 History finasteride 5 mg tablet 5 mg PO QHS prostate 03/26/25 04/25/25 History apixaban 5 mg tablet (Eliquis) 5 mg PO BID elequis 04/26/25 04/25/25 History dextrose 40 % oral gel 10 g PO Q15M PRN hypoglycemia 04/26/25 Unknown History doxycycline hyclate 100 mg capsule 100 mg PO BID infection 04/26/25 04/25/25 History insulin glargine 100 unit/mL (3 18 unit subcut QHS Diabetes 04/26/25 04/25/25 History mL) subcutaneous pen (Lantus Solostar U-100 Insulin) insulin lispro 100 unit/mL 15 unit subcut DAILY@0800 04/26/25 04/25/25 History subcutaneous pen (Humalog KwikPen SLIDINING SCALE (U-100) Insulin) magnesium 250 mg tablet 250 mg PO DAILY SUPPLEMENT 04/26/25 04/25/25 History ondansetron HCl 4 mg tablet 2 mg PO Q8H nausea and vomiting 04/26/25 04/25/25 History polyethylene glycol 3350 17 17 g PO DAILY PRN constipation 04/26/25 Unknown History gram/dose oral powder (ClearLax) OXYGEN - Supplemental ([facility] at night 06/03/25 Unknown History INFORMATIONAL USE ONLY) CPAP - Continuous Positive Airway sleep apnea 06/04/25 06/04/25 History Pressure([facility] INFORMATIONAL USE ONLY) insulin lispro 100 unit/mL 17 unit subcut DAILY diabetes 07/01/25 Unknown History subcutaneous pen (Humalog KwikPen (U-100) Insulin) insulin lispro 100 unit/mL 19 unit subcut DAILY@1700 diabetes 07/01/25 Unknown History subcutaneous pen (Humalog KwikPen (U-100) Insulin) midodrine 5 mg tablet 5 mg PO TID blood pressure 07/01/25 Unknown History Allergy/AdvReac Type Severity Reaction Status Date / Time rofecoxib Allergy Severe Swelling Verified 06/01/25 16:40 Family History Mother Heart disease Sister Heart disease Myocardial infarction CVA (cerebral vascular accident) Diabetes Brother CVA (cerebral vascular accident) Other Persistent atrial fibrillation Surgical History History of insertion of nerve stimulator History of surgery Hx of colonoscopy Hx of lumbar discectomy Hx of total knee arthroplasty History of knee replacement, total Social History household members: spouse Smoking Status: Never smoker alcohol intake: current alcohol intake frequency: holidays/special occasions only Alcohol type: beer substance use type: does not use caffeine: Yes Type: coffee Number of servings: 2 ROS Constitutional Constitutional: Reports fatigue and weakness; Denies chills or fever(s) Eyes Eyes: Denies blurry vision ENT HEENT: Denies abnormal hearing Cardiovascular Cardiovascular: Denies chest pain or syncope Respiratory/Chest Respiratory/Chest: Denies cough or shortness of breath at rest Gastrointestinal Gastrointestinal: Denies abdominal pain Genitourinary Genitourinary: Denies dysuria Musculoskeletal Musculoskeletal: Reports extremity pain, joint swelling and muscle weakness Integumentary Integumentary: Denies dry skin Neurologic Neurologic: Denies confusion or headache(s) Psychiatric Psychiatric: Denies anxiety Vital Signs Vital Signs Vital Signs: 07/05/25 21:00 07/05/25 21:11 07/05/25 22:00 Temperature 97.7 F L Temperature Source Oral Pulse Rate 90 92 Respiratory Rate 20 H 18 Respiratory Effort Normal Respiratory Pattern Normal Blood Pressure 79/37 L 82/31 L Blood Pressure Mean 51 48 Pulse Ox 93 95 93 Oxygen Delivery Method Room Air Room Air Room Air 07/05/25 23:00 Temperature Temperature Source Pulse Rate 90 Respiratory Rate 16 Respiratory Effort Respiratory Pattern Blood Pressure 83/47 L Blood Pressure Mean 59 Pulse Ox 93 Oxygen Delivery Method Weight Weight: 247 lb 9.266 oz Body Mass Index (BMI) 36.6 Results Lab / Micro Data 07/05/25 21:21 07/05/25 21:21 Labs: Laboratory Results - last 24 hr 07/05/25 21:21: WBC 8.0, RBC 2.39 L, Hgb 8.0 L, Hct 25.1 L, MCV 105.0 H, MCH 33.5 H, MCHC 31.9 L, RDW Std Deviation 58.0 H, RDW Coeff of Whitney 14.9 H, Plt Count 273, MPV 11.7, Immature Gran % (Auto) 2.400 H, Neut % (Auto) 80.9 H, Lymph % (Auto) 7.0 L, Archule[place] % (Auto) 7.1, Eos % (Auto) 2.1, Baso % (Auto) 0.5, Absolute Neuts (auto) 6.5, Absolute Lymphs (auto) 0.56 L, Nucleated RBC % 0, Sodium 134, Potassium 4.6, Chloride 97 L, Carbon Dioxide 14.1 L, Anion Gap 23 H, BUN 43 H, Creatinine 7.98 H*, Estim Creat Clear Calc 9.88 L*, Est GFR (MDRD) Non-Af 6 L, BUN/Creatinine Ratio 5.4 L, Glucose 287 H, Calcium 8.4, Phosphorus 5.5 H, Magnesium 2.1 ABG Data ABG results: ABG 07/05/25 23:37 Specimen Type DAYO Sample Site Not entered VBG pH 7.31 L VBG pO2 26 VBG HCO3 19 L VBG Total CO2 20 L VBG O2 Sat (Calc) 43 L VBG Base Excess -7 L POC Mix VBG pCO2 Pt Tmp 37.9 L O2 Delivery Device Room Air Imaging Radiology Impression Chest X-Ray 07/05/25 22:10 IMPRESSION: Pulmonary findings as above. Reading Location: [facility] Brain CT 07/05/25 22:36 IMPRESSION: No acute intracranial abnormality. No acute cervical spine fracture. Chronic and ancillary findings as above. Reading Location: [facility] Cervical Spine CT 07/05/25 22:36 IMPRESSION: No acute intracranial abnormality. No acute cervical spine fracture. Chronic and ancillary findings as above. Reading Location: [facility] Pelvis X-Ray 07/05/25 22:40 IMPRESSION: No acute osseous abnormalities. Reading Location: [facility] Assessment & Plan Assessment/Plan (1) ESRD (end stage renal disease): (2) Obesity (BMI 30-39.9): (3) Chronic anticoagulation: (4) History of atrial fibrillation: (5) Type 2 diabetes mellitus with hyperglycemia, without long-term current use of insulin: (6) Frequent falls: PLAN: Plan 1 generalized weakness with frequent falls?admit patient to general medical floor consult case management for rehab placement and physical therapy to evaluate and treat for strengthening. 2. End-stage renal disease dialysis dependent?consult Dr. Sanchez for dialysis, repeat CBC BMP in the a.m. 3. Diabetes?continue routine home medications, check A1c 4. History of atrial fibrillation?continue routine home medication 5. DVT prophylaxis?patient is anticoagulated 6. CODE STATUS full verified Charges/Coding Visit Charges Inpatient E&M: 10180 Init Hosp L2
--- NOTE | 2025-07-06 00:04 | EX.ED.DYSGE1 ---
HPI History of Present Illness Chief Complaint: Fall Informant: patient and spouse/S.O. Narrative Narrative: Patient is a 75-year-old male with past medical history of insulin-dependent diabetes end-stage renal disease on dialysis hypertension hyperlipidemia. He states he has dialysis Saturday and Saturday. He reports his last dialysis session was Saturday. He states that this morning he was getting into the car to try and go towards dialysis when his legs were weak and gave out on him causing him to fall. He states he did not strike his head or have any loss of conscious at that time and his was able to get him up and into the house. However because of the event he did not go to dialysis. This evening around 7 PM he was up again and reported his legs just gave out on him and this caused him to fall and he struck the front of his head on the toilet. Again there was no loss of consciousness. However this time after the head injury he was too weak to get up and ambulate with the help of his and therefore EMS was called and he was brought into the hospital for evaluation. [facility] Medical History (Updated 07/06/25 @ 05:[address] Vasquez Rivera, DO) ESRD (end stage renal disease) on dialysis Chronic anticoagulation Physical debility Arteriovenous fistula of left upper extremity Leg swelling Dyspnea on exertion Fatigue Shortness of breath CKD (chronic kidney disease) Bilateral leg edema Preoperative cardiovascular examination Osteopenia determined by x-ray Aftercare following explantation of knee joint prosthesis Infected prosthetic knee joint Urine retention jail current use of amiodarone WANDA (obstructive sleep apnea) Cognitive dysfunction Easy bruising Excessive bleeding Gastric reflux Non-smoker A-V fistula History of Clostridium difficile infection Wears dentures Depression Anxiety Insulin dependent diabetes mellitus Walker as ambulation aid Ambulates with cane Arthritis History of renal dialysis High cholesterol Restless legs Back pain Dietary restriction Shortness of breath on exertion Leg cramps History of pain when walking History of edema History of Holter monitoring History of stress test History of echocardiogram Cardiology follow-up encounter Atrial tachycardia History of CVA (cerebrovascular accident) Left-sided weakness Diabetes mellitus, type 2 Persistent atrial fibrillation BPH (benign prostatic hyperplasia) Depression Normochromic normocytic anemia Iron deficiency History of iron deficiency Cerebral artery occlusion with cerebral infarction Acute right MCA stroke Longstanding persistent atrial fibrillation Chronic combined systolic and diastolic CHF (congestive heart failure) 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 (LBBB) Acute on chronic combined systolic (congestive) and diastolic (congestive) heart failure (02/02/20) History of non-ST elevation myocardial infarction (NSTEMI) (02/02/20) Non-ischemic cardiomyopathy NSVT (nonsustained ventricular tachycardia) Obesity CVA (cerebral vascular accident) (12/2017) Secondary pulmonary arterial hypertension GERD (gastroesophageal reflux disease) Hyperlipidemia Essential (primary) hypertension CKD (chronic kidney disease), stage III Paroxysmal atrial fibrillation Anemia Chronic low back pain Osteoarthritis Home Medications ?Medication ?Instructions ?Recorded ?Last Taken ?Type multivitamin (Daily Multi-Vitamin 1 tab PO DAILY Supplement 02/12/22 04/25/25 History tablet) tamsulosin 0.4 mg capsule 0.4 mg PO BID Urine retention 02/12/22 04/25/25 History ascorbic acid (vitamin C) 500 mg 1,000 mg PO LUNCH Supplement 02/28/23 04/25/25 History tablet acetaminophen 500 mg tablet 1,000 mg (2 x 500 mg) PO Q8H PRN 03/15/23 04/04/25 Rx PRN Pain 1-10 #1 TAB buspirone 15 mg tablet 15 mg PO TID Mood 11/22/23 04/25/25 History docusate sodium 100 mg capsule 100 mg PO BID PRN constipation 11/22/23 Unknown History olanzapine 5 mg tablet 5 mg PO QHS mental health 11/22/23 04/25/25 History omeprazole 40 mg capsule,delayed 40 mg PO QDAY reflux 11/22/23 04/25/25 History release sertraline 100 mg tablet 100 mg PO QDAY mental health 11/22/23 04/25/25 History zonisamide 50 mg capsule 50 mg PO BID seizures 11/22/23 04/25/25 History aspirin 81 mg tablet,delayed 81 mg PO QDAY Cardiac 12/08/24 04/25/25 History release (Adult Low Dose Aspirin) rosuvastatin 20 mg tablet 20 mg PO QDAY cholesterol 12/08/24 04/25/25 History cholecalciferol (vitamin D3) 25 50 mcg PO DAILY vitamin supplement 02/18/25 04/25/25 History mcg (1,000 unit) tablet amiodarone 200 mg tablet 100 mg PO Q24H BP 03/26/25 04/25/25 History fenofibrate 54 mg tablet 108 mg PO DAILY cholesterol 03/26/25 04/25/25 History finasteride 5 mg tablet 5 mg PO QHS prostate 03/26/25 04/25/25 History apixaban 5 mg tablet (Eliquis) 5 mg PO BID elequis 04/26/25 04/25/25 History dextrose 40 % oral gel 10 g PO Q15M PRN hypoglycemia 04/26/25 Unknown History doxycycline hyclate 100 mg capsule 100 mg PO BID infection 04/26/25 04/25/25 History insulin glargine 100 unit/mL (3 18 unit subcut QHS Diabetes 04/26/25 04/25/25 History mL) subcutaneous pen (Lantus Solostar U-100 Insulin) insulin lispro 100 unit/mL 15 unit subcut DAILY@0800 04/26/25 04/25/25 History subcutaneous pen (Humalog KwikPen SLIDINING SCALE (U-100) Insulin) magnesium 250 mg tablet 250 mg PO DAILY SUPPLEMENT 04/26/25 04/25/25 History ondansetron HCl 4 mg tablet 2 mg PO Q8H nausea and vomiting 04/26/25 04/25/25 History polyethylene glycol 3350 17 17 g PO DAILY PRN constipation 04/26/25 Unknown History gram/dose oral powder (ClearLax) insulin lispro 100 unit/mL 17 unit subcut DAILY@1200 diabetes 07/01/25 Unknown History subcutaneous pen (Humalog KwikPen (U-100) Insulin) insulin lispro 100 unit/mL 19 unit subcut DAILY@1700 diabetes 07/01/25 Unknown History subcutaneous pen (Humalog KwikPen (U-100) Insulin) midodrine 5 mg tablet 5 mg PO TID blood pressure 07/01/25 Unknown History Allergy/AdvReac Type Severity Reaction Status Date / Time rofecoxib Allergy Severe Swelling Verified 06/01/25 16:40 Family History Mother Heart disease Sister Heart disease Myocardial infarction CVA (cerebral vascular accident) Diabetes Brother CVA (cerebral vascular accident) Other Persistent atrial fibrillation Surgical History History of insertion of nerve stimulator History of surgery Hx of colonoscopy Hx of lumbar discectomy Hx of total knee arthroplasty History of knee replacement, total Social History household members: spouse Smoking Status: Never smoker alcohol intake: current alcohol intake frequency: holidays/special occasions only Alcohol type: beer substance use type: does not use caffeine: Yes Type: coffee Number of servings: 2 ROS ROS ED Constitutional Constitutional ED: Denies chills or fever(s) Eyes Eyes: Denies blurry vision or change in vision ENT ENT ED: Denies sore throat Cardiovascular Cardiovascular: Reports other Details: Negative syncope ; Denies chest pain, palpitations or racing heartbeat Respiratory/Chest Respiratory/Chest: Denies cough or dyspnea Gastrointestinal Gastrointestinal: Denies abdominal pain, diarrhea, nausea or vomiting Musculoskeletal Musculoskeletal: Denies back pain or neck pain Integumentary Reports Abrasions Neurologic Neurologic: Reports weakness; Denies headache(s) Hematologic/Lymphatic Hematologic/Lymphatic: Reports easy bleeding and easy bruising EXAM Physical Exam Const Vital Signs: 07/05/25 21:00 07/05/25 21:11 07/05/25 22:00 Temperature 97.7 F L Temperature Source Oral Pulse Rate 90 92 Respiratory Rate 20 H 18 Respiratory Effort Normal Respiratory Pattern Normal Blood Pressure 79/37 L 82/31 L Blood Pressure Mean 51 48 Pulse Ox 93 95 93 Oxygen Delivery Method Room Air Room Air Room Air 07/05/25 23:00 07/06/25 00:00 Temperature Temperature Source Pulse Rate 90 86 Respiratory Rate 16 18 Respiratory Effort Respiratory Pattern Blood Pressure 83/47 L 82/50 L Blood Pressure Mean 59 60 Pulse Ox 93 94 Oxygen Delivery Method Room Air Positive well nourished, well developed and obese General Appearance ED: well developed Nutritional Appearance: obese HEENT Reports dry mucous membranes HEENT Narrative: Patient has a superficial abrasion with 1 x 2 cm hematoma along the right frontal portion of the scalp consistent with head injury but no signs of depressed or basilar skull fracture Mouth ED: Yes dry mucous membranes Mouth: dry mucous membranes Eyes PERRL and EOMs intact bilaterally General Eye ED: Negative for scleral icterus Neck supple Neck Narrative: No bony deformity or step-off of the cervical spine Chest Wall palpation of chest normal Chest Narrative: No bony deformity or crepitance noted Dialysis catheter is in place in the right upper anterior chest without surrounding soft tissue changes to suggest infection Resp normal respiratory effort Resp Narrative: Breath sounds are diminished throughout with faint rhonchi but no signs of respiratory distress Cardio regular rate and regular rhythm GI normal to inspection, nondistended, normoactive bowel sounds, non-tender, non-distended and no masses GI Narrative: Abdomen is soft nontender nondistended with hypoactive bowel sounds No voluntary guarding or rigidity or pulsatile mass Auscultation: hypoactive bowel sounds Palpation: soft Back/Spine Back/Spine Narrative: No bony deformity or step-off of the thoracic or lumbar spine No midline tenderness to palpation Extremity Extremity Narrative: +3-4 pitting edema to the bilateral lower extremities that is equal and symmetric There is +1-2 pitting edema to the bilateral upper extremities that is also equal and symmetric Pelvis is stable there is no shortening or external rotation of either lower extremity No sign of long bone injury such as bony deformity or joint effusion All compartments are soft and compressible going against compartment syndrome Neuro oriented x3 and CN's II-XII intact bilaterally Neuro Narrative: Patient can plantar and dorsiflex his feet but he cannot lift either leg off the bed. He states this is secondary to his leg swelling and increased weight of his extremities No focal motor deficit or neurologic finding noted Sensorium / Orientation: alert Psych mental status grossly normal Skin No skin turgor normal Skin Narrative: Abrasion with hematoma to the right side of the forehead as documented above Skin turgor is increased consistent with dehydration MDM MDM MDM Narrative Medical decision making narrative: Patient arrived to the ER hypotensive but otherwise with stable vitals. He reported 2 events today roughly 12 hours apart where his legs just simply gave out. By physical exam he has weakness in the bilateral lower extremities but this weakness is equal and he states is due to the increased swelling and the weight of his legs and there is no obvious focal neurologic deficits I do not feel the need to activate a acute stroke alert. With the patient on Eliquis and having head trauma there is concern for a skull fracture versus traumatic subarachnoid or subdural hemorrhage and therefore a CT will be obtained to rule out acute bleed. The CT will continue to the cervical spine in order to rule out compression fracture. In order to rule out acute blood loss anemia or clinically significant electrolyte abnormality as the cause of his symptoms basic blood work was ordered as well. Hemoglobin is low at 8 but chart review reveals he has chronic anemia with baseline typically between 8.5-9. The patient's anion gap was elevated at 23 and his bicarb low at 14 and with a history of diabetes in order to rule out DKA I did elect to perform a VBG.it shows mild acidosis at a pH of 7.31 however the bicarb on the VBG is improved at approximately 19. I do not feel these changes constitute DKA and therefore do not feel the need for an insulin drip. The patient was given albumin based on his history of renal failure on dialysis as his blood pressure was low and exam showed dehydration but I was worried about fluid overload with normal saline. After receiving 25 g of this he did have improvement of his hypotension. At this time the patient is too weak to ambulate and therefore I do not feel he is safe for discharge as he cannot perform his activities of daily living. I feel the safest option is admission to the hospital for dialysis as he missed today as well as evaluation by PT OT and social work to discuss jail placement and/or rehab. The patient states that he is agreeable to this plan of care as his symptoms are persistent and not improving with his home therapy. Therefore the case was discussed with hospitalist who agrees to accept the patient to his service for continued evaluation and care History & Record Review Discussion w/independent historian: Patient and Family Additional record(s) reviewed:: Prior labs Lab Data Attestation: I reviewed the patient's lab results. Labs: Laboratory Results - last 24 hr 07/05/25 21:21 WBC 8.0 RBC 2.39 L Hgb 8.0 L Hct 25.1 L MCV 105.0 H MCH 33.5 H MCHC 31.9 L RDW Std Deviation 58.0 H RDW Coeff of Whitney 14.9 H Plt Count 273 MPV 11.7 Immature Gran % (Auto) 2.400 H Neut % (Auto) 80.9 H Lymph % (Auto) 7.0 L [place] % (Auto) 7.1 Eos % (Auto) 2.1 Baso % (Auto) 0.5 Absolute Neuts (auto) 6.5 Absolute Lymphs (auto) 0.56 L Nucleated RBC % 0 Sodium 134 Potassium 4.6 Chloride 97 L Carbon Dioxide 14.1 L Anion Gap 23 H BUN 43 H Creatinine 7.98 H* Estim Creat Clear Calc 9.88 L* Est GFR (MDRD) Non-Af 6 L BUN/Creatinine Ratio 5.4 L Glucose 287 H Calcium 8.4 Phosphorus 5.5 H Magnesium 2.1 ABG Data ABG results: ABG 07/05/25 23:37 Specimen Type DAYO Sample Site Not entered VBG pH 7.31 L VBG pO2 26 VBG HCO3 19 L VBG Total CO2 20 L VBG O2 Sat (Calc) 43 L VBG Base Excess -7 L POC Mix VBG pCO2 Pt Tmp 37.9 L O2 Delivery Device Room Air Radiography Diagnostic Testing: Clinical Impression(s) from Imaging Studies Chest X-Ray 07/05/25 22:10 IMPRESSION: Pulmonary findings as above. Reading Location: [facility] Brain CT 07/05/25 22:36 IMPRESSION: No acute intracranial abnormality. No acute cervical spine fracture. Chronic and ancillary findings as above. Reading Location: [facility] Cervical Spine CT 07/05/25 22:36 IMPRESSION: No acute intracranial abnormality. No acute cervical spine fracture. Chronic and ancillary findings as above. Reading Location: [facility] Pelvis X-Ray 07/05/25 22:40 IMPRESSION: No acute osseous abnormalities. Reading Location: [facility] 1 view chest x-ray as interpreted by the emergency medicine physician reveals cardiomegaly with pulmonary vascular congestion but no acute infiltrate or pneumothorax 1 view pelvis x-ray as interpreted by the emergency medicine physician reveals no acute fracture or dislocation Management Discussion w/another healthcare provider: Hospitalist Discharge Plan Dx/Rx/DC Orders Clinical Impression: Physical debility, ESRD (end stage renal disease) on dialysis, Chronic anticoagulation, Insulin dependent diabetes mellitus, Chronic anemia, Closed head injury, Frequent falls, Anasarca Disposition Disposition: Acute Care Hospital [facility] Discharge Date/Time: 07/06/25 01:24
--- NOTE | 2025-07-06 04:14 | NURSING ---
per pt he gets MWF dialysis through [facility] chest dialysis cath. every other night my hooks me up to his peritoneal dialysis cath, and they dont use his CEM fistula
[2025-07-06 06:36] LABS: Hematocrit 22.1 % (40-54); Hemoglobin 7.1 g/dL (13.0-16.5); Immature Granulocytes Count 0.100 X10^3/uL (0.0-0.0); Mean Corp Hgb Conc 32.1 g/dL (32-36); Mean Corpuscular Volume 104.2 fL (80-94); Mean Platelet Vol. 10.8 fl (6.2-12.0); NRBC Flagged by Analyzer 0 % (0-5); Platelet Count 203 K/mm3 (150-450); RBC Distribution Width CV 14.8 % (11.6-14.6); RBC Distribution Width SD 56.7 fl (35.1-43.9); Red Blood Count 2.12 M/mm3 (4.6-6.2); White Blood Count 12.2 K/mm3 (4.4-11.0)
[2025-07-06 07:16] LABS: Anion Gap 18 (5-15); BUN 44 mg/dL (4-19); BUN/Creat Ratio 5.4 RATIO (10-20); Calcium,Total 8.2 mg/dL (7.6-11.0); Carbon Dioxide 16.8 mmol/L (21.0-32.0); Chloride 100 mmol/L (98-108); Estimated Creatinine Clearance 9.45 ml/min (50-250); Glucose 180 mg/dL (70-99); Potassium 4.1 mmol/L (3.3-5.1)
[2025-07-06] MEDS: PureFlow B 2K Dialysis Soln 1 BAG 6 BAG PF (08:21)
[2025-07-06] MEDS: 0.9% Normal Saline 1,000 ML IV.SOLN. 1000 ML OPERA.SITE (08:22)
--- NOTE | 2025-07-06 08:39 | PCM.PN.BLA ---
Progress Note 1. DM2 with ESRD on dialysis with generalized weakness and frequent falls ? Sign scale insulin ? Accu-Cheks ? Will monitor make adjustments as necessary ? Appreciate nephrology assistance with dialysis, ? He will need to transition to hemodialysis it does not appear that the peritoneal dialysis is doing much at home 2. Paroxysmal A-fib/essential HTN/HLD/history of CVA ? Had an MCA CVA on the right status post thrombectomy at [facility] with continued left-sided weakness ? Continue with his amiodarone plus aspirin and Eliquis ? Continue with Crestor ? Given his hypotension we will hold torsemide 3. Anxiety/depression ? Stable ? Continue with his home medications 4. Suspected seizure disorder ? Continue zonisamide ? Stable 5. Iron deficiency anemia ? Continue with his iron supplementation ? B12 and folate levels are normal recently 6. BPH with obstruction ? Stable ? Continue with his home medications 7. GERD ? Stable ? Continue PPI
[2025-07-06] MEDS: Epoetin Alfa epbx 10,000 UNIT/ML 20000 UNIT IV (09:50)
--- NOTE | 2025-07-06 10:48 | NURSING ---
pt c/o pain to right knee 6/10 worsening with movement. Extremity elevated, and warm blanket applied. Primary RN made aware, Pt medicated with ibuprofen.
--- NOTE | 2025-07-06 11:26 | PCM.CONS.R ---
Assessment & Plan Assessment/Plan (1) ESRD (end stage renal disease): PLAN: Plan This is a 75-year-old male with past medical history significant for ESRD, presented emergency room yesterday for weakness and falls. Patient undergoing hemodialysis today over 4 hours and had been attempting fluid removal as patient/blood pressure tolerates however even with midodrine blood pressures have remained low during dialysis today. Will increase midodrine. Will plan for hemodialysis tomorrow with ultrafiltration as patient/blood pressure tolerates. Hemoglobin today 7.1, patient receives SMOOTH and iron at [facility], we will follow hgb trends and we can give PRBC with hemodialysis. Patient has been on peritoneal dialysis support however due to significant fluid gains, struggling with PD patient has been transitioned over to hemodialysis support via tunneled hemodialysis catheter. Patient does have a functioning left arm AV fistula but has not been cleared for access per vascular for hemodialysis at this time. He is following with vascular; patient had branch ligation end of April due to persistent edema. Patient does have edema noted to left arm, vascular has been contacted about this per patient's . Further orders forthcoming as hospitalization evolves, thank you Mario is participate in the care of Mr. Irwin. HPI Consult Data Date of Consult: 07/06/25 HPI Narrative HPI Narrative: VIVI IRWIN, is a 75 M who presented to the emergency room yesterday for weakness and falling at home. CT brain negative, cervical spine CT negative, x-ray pelvis negative. Patient was admitted for further evaluation and treatment. Nephrology consulted as patient has history of ESRD and for dialysis management. Patient is currently dialyzing via a tunneled hemodialysis catheter. He had been on peritoneal dialysis but having difficult time with fluid management with peritoneal dialysis. Patient was to go to dialysis yesterday however due to falling and weakness, EMS was summoned and patient was taken to the emergency room instead. Today patient is complaining of pain in his knees. Denies any chest pain or shortness of breath. No recent fever or chills. at bedside. [facility] Medical History (Updated 07/06/25 @ 07:55 by Sandrine Vasquez) ESRD (end stage renal disease) on dialysis Chronic anticoagulation Physical debility Arteriovenous fistula of left upper extremity Leg swelling Dyspnea on exertion Fatigue Shortness of breath CKD (chronic kidney disease) Bilateral leg edema Preoperative cardiovascular examination Osteopenia determined by x-ray Aftercare following explantation of knee joint prosthesis Infected prosthetic knee joint Urine retention longterm current use of amiodarone WANDA (obstructive sleep apnea) Cognitive dysfunction Easy bruising Excessive bleeding Gastric reflux Non-smoker A-V fistula History of Clostridium difficile infection Wears dentures Depression Anxiety Insulin dependent diabetes mellitus Walker as ambulation aid Ambulates with cane Arthritis History of renal dialysis High cholesterol Restless legs Back pain Dietary restriction Shortness of breath on exertion Leg cramps History of pain when walking History of edema History of Holter monitoring History of stress test History of echocardiogram Cardiology follow-up encounter Atrial tachycardia History of CVA (cerebrovascular accident) Left-sided weakness Diabetes mellitus, type 2 Persistent atrial fibrillation BPH (benign prostatic hyperplasia) Depression Normochromic normocytic anemia Iron deficiency History of iron deficiency Cerebral artery occlusion with cerebral infarction Acute right MCA stroke Longstanding persistent atrial fibrillation Chronic combined systolic and diastolic CHF (congestive heart failure) 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 (LBBB) Acute on chronic combined systolic (congestive) and diastolic (congestive) heart failure (02/02/20) History of non-ST elevation myocardial infarction (NSTEMI) (02/02/20) Non-ischemic cardiomyopathy NSVT (nonsustained ventricular tachycardia) Obesity CVA (cerebral vascular accident) (12/2017) Secondary pulmonary arterial hypertension GERD (gastroesophageal reflux disease) Hyperlipidemia Essential (primary) hypertension CKD (chronic kidney disease), stage III Paroxysmal atrial fibrillation Anemia Chronic low back pain Osteoarthritis Home Medications ?Medication ?Instructions ?Recorded ?Last Taken ?Type multivitamin (Daily Multi-Vitamin 1 tab PO DAILY Supplement 02/12/22 04/25/25 History tablet) tamsulosin 0.4 mg capsule 0.4 mg PO BID Urine retention 02/12/22 04/25/25 History ascorbic acid (vitamin C) 500 mg 1,000 mg PO LUNCH Supplement 02/28/23 04/25/25 History tablet acetaminophen 500 mg tablet 1,000 mg (2 x 500 mg) PO Q8H PRN 03/15/23 04/04/25 Rx PRN Pain 1-10 #1 TAB buspirone 15 mg tablet 15 mg PO TID Mood 11/22/23 04/25/25 History docusate sodium 100 mg capsule 100 mg PO BID PRN constipation 11/22/23 Unknown History olanzapine 5 mg tablet 5 mg PO QHS mental health 11/22/23 04/25/25 History omeprazole 40 mg capsule,delayed 40 mg PO QDAY reflux 11/22/23 04/25/25 History release sertraline 100 mg tablet 100 mg PO QDAY mental health 11/22/23 04/25/25 History zonisamide 50 mg capsule 50 mg PO BID seizures 11/22/23 04/25/25 History aspirin 81 mg tablet,delayed 81 mg PO QDAY Cardiac 12/08/24 04/25/25 History release (Adult Low Dose Aspirin) rosuvastatin 20 mg tablet 20 mg PO QDAY cholesterol 12/08/24 04/25/25 History cholecalciferol (vitamin D3) 25 50 mcg PO DAILY vitamin supplement 02/18/25 04/25/25 History mcg (1,000 unit) tablet amiodarone 200 mg tablet 100 mg PO Q24H BP 03/26/25 04/25/25 History fenofibrate 54 mg tablet 108 mg PO DAILY cholesterol 03/26/25 04/25/25 History finasteride 5 mg tablet 5 mg PO QHS prostate 03/26/25 04/25/25 History apixaban 5 mg tablet (Eliquis) 5 mg PO BID elequis 04/26/25 04/25/25 History dextrose 40 % oral gel 10 g PO Q15M PRN hypoglycemia 04/26/25 Unknown History doxycycline hyclate 100 mg capsule 100 mg PO BID infection 04/26/25 04/25/25 History insulin glargine 100 unit/mL (3 18 unit subcut QHS Diabetes 04/26/25 04/25/25 History mL) subcutaneous pen (Lantus Solostar U-100 Insulin) insulin lispro 100 unit/mL 15 unit subcut DAILY@0800 04/26/25 04/25/25 History subcutaneous pen (Humalog KwikPen SLIDINING SCALE (U-100) Insulin) magnesium 250 mg tablet 250 mg PO DAILY SUPPLEMENT 04/26/25 04/25/25 History ondansetron HCl 4 mg tablet 2 mg PO Q8H nausea and vomiting 04/26/25 04/25/25 History polyethylene glycol 3350 17 17 g PO DAILY PRN constipation 04/26/25 Unknown History gram/dose oral powder (ClearLax) insulin lispro 100 unit/mL 17 unit subcut DAILY@1200 diabetes 07/01/25 Unknown History subcutaneous pen (Humalog KwikPen (U-100) Insulin) insulin lispro 100 unit/mL 19 unit subcut DAILY@1700 diabetes 07/01/25 Unknown History subcutaneous pen (Humalog KwikPen (U-100) Insulin) midodrine 5 mg tablet 5 mg PO TID blood pressure 07/01/25 Unknown History Allergy/AdvReac Type Severity Reaction Status Date / Time rofecoxib Allergy Severe Swelling Verified 06/01/25 16:40 Family History Mother Heart disease Sister Heart disease Myocardial infarction CVA (cerebral vascular accident) Diabetes Brother CVA (cerebral vascular accident) Other Persistent atrial fibrillation Surgical History History of insertion of nerve stimulator History of surgery Hx of colonoscopy Hx of lumbar discectomy Hx of total knee arthroplasty History of knee replacement, total Social History household members: spouse Smoking Status: Never smoker alcohol intake: current alcohol intake frequency: holidays/special occasions only Alcohol type: beer substance use type: does not use caffeine: Yes Type: coffee Number of servings: 2 ROS ROS Narrative As in HPI, otherwise negative Physical Exam Narrative Alert and oriented x 3, no apparent distress S1, S2, RRR Diminished breath sounds Abdomen soft, rounded. PD catheter intact ++ Pitting edema bilateral lower legs Left arm with Mikie wrap intact. Positive bruit auscultated thru Mikie wrap Tunneled hemodialysis catheter accessed for hemodialysis. Dressing clean, dry and intact Lab / Micro Data 07/06/25 06:25 07/06/25 06:25 Labs: Laboratory Results - last 24 hr 07/05/25 21:21: WBC 8.0, RBC 2.39 L, Hgb 8.0 L, Hct 25.1 L, MCV 105.0 H, MCH 33.5 H, MCHC 31.9 L, RDW Std Deviation 58.0 H, RDW Coeff of Whitney 14.9 H, Plt Count 273, MPV 11.7, Immature Gran % (Auto) 2.400 H, Neut % (Auto) 80.9 H, Lymph % (Auto) 7.0 L, [place] % (Auto) 7.1, Eos % (Auto) 2.1, Baso % (Auto) 0.5, Absolute Neuts (auto) 6.5, Absolute Lymphs (auto) 0.56 L, Nucleated RBC % 0, Sodium 134, Potassium 4.6, Chloride 97 L, Carbon Dioxide 14.1 L, Anion Gap 23 H, BUN 43 H, Creatinine 7.98 H*, Estim Creat Clear Calc 9.88 L*, Est GFR (MDRD) Non-Af 6 L, BUN/Creatinine Ratio 5.4 L, Glucose 287 H, Calcium 8.4, Phosphorus 5.5 H, Magnesium 2.1 07/06/25 04:46: POC Glucose 205 H 07/06/25 06:25: WBC 12.2 H, RBC 2.12 L, Hgb 7.1 L, Hct 22.1 L, MCV 104.2 H, MCH 33.5 H, MCHC 32.1, RDW Std Deviation 56.7 H, RDW Coeff of Whitney 14.8 H, Plt Count 203, MPV 10.8, Immature Gran % (Auto) 0.800, Neut % (Auto) 84.0 H, Lymph % (Auto) 6.8 L, [place] % (Auto) 6.9, Eos % (Auto) 1.3, Baso % (Auto) 0.2, Absolute Neuts (auto) 10.2 H, Absolute Lymphs (auto) 0.83, Nucleated RBC % 0, Sodium 135, Potassium 4.1, Chloride 100, Carbon Dioxide 16.8 L, Anion Gap 18 H, BUN 44 H, Creatinine 8.21 H*, Estim Creat Clear Calc 9.45 L*, Est GFR (MDRD) Non-Af 6 L, BUN/Creatinine Ratio 5.4 L, Glucose 180 H, Calcium 8.2 ABG Data ABG results: ABG 07/05/25 23:37 Specimen Type DAYO Sample Site Not entered VBG pH 7.31 L VBG pO2 26 VBG HCO3 19 L VBG Total CO2 20 L VBG O2 Sat (Calc) 43 L VBG Base Excess -7 L POC Mix VBG pCO2 Pt Tmp 37.9 L O2 Delivery Device Room Air Imaging Radiology Impression Chest X-Ray 07/05/25 22:10 IMPRESSION: Pulmonary findings as above. Reading Location: [id number] Brain CT 07/05/25 22:36 IMPRESSION: No acute intracranial abnormality. No acute cervical spine fracture. Chronic and ancillary findings as above. Reading Location: [facility] Cervical Spine CT 07/05/25 22:36 IMPRESSION: No acute intracranial abnormality. No acute cervical spine fracture. Chronic and ancillary findings as above. Reading Location: [facility] Pelvis X-Ray 07/05/25 22:40 IMPRESSION: No acute osseous abnormalities. Reading Location: [facility]
[2025-07-06 11:54] LABS: Hematocrit 20.5 % (40-54); Hemoglobin 6.9 g/dL (13.0-16.5)
[2025-07-06] MEDS: 0.9% Saline Lock 10 ML Syringe IV ×3 (11:56→20:49)
[2025-07-06] MEDS: Cholecalciferol (VIT D3) 25 MCG TABLET (1,000 UNITS) 50 MCG PO (12:42)
[2025-07-06] MEDS: Aspirin E.C. 81 MG Tablet PO (12:42)
[2025-07-06] MEDS: APIXABAN 5 MG TABLET PO (12:42)
[2025-07-06] MEDS: Magnesium Chloride 64 MG Delay Rel.Tablet PO (12:43)
--- NOTE | 2025-07-06 12:58 | CASEMGMT ---
Discharge Planning A list of?SNF providers including quality and resource use data and consistent with the patient's preferred geographic region, medical needs, and insurance network was created in [facility]Port Guide.? This list was provided to the pt. Zakia Valentine, Discharge Planning Asst
--- NOTE | 2025-07-06 13:16 | CASEMGMT ---
Addendum entered by Jacque Ugarte 07/06/25 13:22: TC to [facility], spoke with Evangelina, she is aware pt is admitted to [facility] and plans to go to SNF but facility is not determined at this time. She states pt chair time is 750 M/W/F. Original Note: Noted on CR that dc summary stated pt was to be on oxygen. Pt and state they were not set up with oxygen upon dc'ing home last admission.
--- NOTE | 2025-07-06 14:14 | CASEMGMT ---
Addendum entered by Zakia Valentine 07/07/25 14:59: [facility] asked to cancel referral. Pt has been accepted by [facility]. Zaika Valentine DC Planning Asst. Original Note: Discharge Planning Follow up with pt and his . SNF choices are 1. [facility] 2. [facility]. RN CM updated. Referral sent via [facility]port to [facility]. Zakia Valentine DC Planning Asst.
--- NOTE | 2025-07-06 14:48 | RAD_ITS ---
PROCEDURE: RAD/Knee 3 Views
[2025-07-06] MEDS: 0.9% Normal Saline (1000mL) 1,000 ML 999 ML IV (15:47)
--- NOTE | 2025-07-06 17:13 | NURSING ---
Xray results reported to pt and who is in the room.
[2025-07-06] MEDS: OLANZapine 5 MG/TAB TAB.RAPDIS PO (20:49)
--- NOTE | 2025-07-06 21:00 | PCM.HOSP.N ---
Hospitalist Note Will hold eliquis this evening given anemia with 2 u PRBC ongoing currently.
[2025-07-06] MEDS: Insulin Glargine-YFGN 100 UNIT/ML Pen 18 UNIT SC (21:03)
[2025-07-07] VITALS (16 sets, daily range): BP systolic 70–131; BP diastolic 45–98; PULSE 68–93; RESP 14–18; TEMP 36.1–36.6; O2SAT 96–99; BMI 35.3; BMI 34.7
[2025-07-07 06:07] LABS: Hematocrit 26.1 % (40-54); Hemoglobin 8.8 g/dL (13.0-16.5); Immature Granulocytes Count 0.060 X10^3/uL (0.0-0.0); Mean Corp Hgb Conc 33.7 g/dL (32-36); Mean Corpuscular Volume 96.7 fL (80-94); Mean Platelet Vol. 10.7 fl (6.2-12.0); NRBC Flagged by Analyzer 0 % (0-5); Platelet Count 178 K/mm3 (150-450); RBC Distribution Width CV 18.1 % (11.6-14.6); RBC Distribution Width SD 64.5 fl (35.1-43.9); Red Blood Count 2.70 M/mm3 (4.6-6.2); White Blood Count 6.9 K/mm3 (4.4-11.0)
[2025-07-07 06:31] LABS: Anion Gap 12 (5-15); BUN 26 mg/dL (4-19); BUN/Creat Ratio 5.1 RATIO (10-20); Calcium,Total 8.0 mg/dL (7.6-11.0); Carbon Dioxide 20.9 mmol/L (21.0-32.0); Chloride 102 mmol/L (98-108); Estimated Creatinine Clearance 14.99 ml/min (50-250); Glucose 107 mg/dL (70-99); Potassium 3.7 mmol/L (3.3-5.1)
--- NOTE | 2025-07-07 09:20 | PCM.PN.HOSP ---
Subjective Subjective Had to be transfused 2 units yesterday for hemoglobin of 6.9, today is 8.8 and he is feeling better, blood pressures are more stable. Continue with midodrine Objective Data Objective Data Vital Signs: Vital Signs Temp Pulse Resp BP Pulse Ox O2 Del Method O2 Flow Rate 97.8 F 68 14 97/57 L 96 Room Air 1 07/07/25 08:55 07/07/25 08:55 07/07/25 08:55 07/07/25 08:55 07/07/25 08:55 07/07/25 08:55 07/07/25 02:26 Oxygen Flow Rate (L/min) 1 Oxygen Delivery Method Room Air Weight: 238 lb 8.642 oz Body Mass Index (BMI) 35.3 Intake & Output: Intake and Output for Last 24 Hours 07/06/25 07/07/25 07/08/25 03:59 03:59 03:59 Intake Total 200 / 200 2340 / 2340 Output Total 120 / 120 Balance 200 / 200 2220 / 2220 Lab / Micro Data 07/07/25 05:46 07/07/25 05:46 Labs: Laboratory Results - last 24 hr 07/06/25 11:40: Hgb 6.9 L, Hct 20.5 L, Blood Type AB POSITIVE, Antibody Screen NEGATIVE, Crossmatch See Detail 07/06/25 12:06: POC Glucose 105 07/06/25 16:48: POC Glucose 141 H 07/06/25 21:00: POC Glucose 151 H 07/07/25 05:46: WBC 6.9, RBC 2.70 L, Hgb 8.8 L, Hct 26.1 L, MCV 96.7 H D, MCH 32.6 H, MCHC 33.7, RDW Std Deviation 64.5 H, RDW Coeff of Whitney 18.1 H, Plt Count 178, MPV 10.7, Immature Gran % (Auto) 0.900, Neut % (Auto) 73.1 H, Lymph % (Auto) 10.4 L, [place] % (Auto) 9.1, Eos % (Auto) 5.9 H, Baso % (Auto) 0.6, Absolute Neuts (auto) 5.1, Absolute Lymphs (auto) 0.72 L, Nucleated RBC % 0, Sodium 135, Potassium 3.7, Chloride 102, Carbon Dioxide 20.9 L, Anion Gap 12, BUN 26 H, Creatinine 5.16 H, Estim Creat Clear Calc 14.99 L, Est GFR (MDRD) Non-Af 11 L, BUN/Creatinine Ratio 5.1 L, Glucose 107 H, Calcium 8.0 07/07/25 06:19: POC Glucose 100 Radiography Diagnostic Testing: Radiology Impression Knee X-Ray 07/06/25 14:48 IMPRESSION: No fracture seen. Reading Location: [facility] Physical Exam Narrative General: Alert, Oriented x3, Cooperative, No apparent distress HEENT: Atraumatic, PERRLA, EOMI, Normocephalic Oral: Moist Mucosa Neck: Supple, No JVD Lungs: Diminished, Normal air movement, No rhonchi, No wheeze, No rales Cardiovascular: Regular rate, Regular Rhythm, Normal S1, Normal S2, No murmurs Abdomen: Soft, Non Tender, Non-Distended, No Hepato-splenomegaly Extremities: Edema, Capillary Refill Less than 3 Seconds, bilateral upper extremities are wrapped Skin: No rashes, No breakdown Musculoskeletal: No Tenderness to Palpation of Joints or Extremities Neurological: No focal neurological deficits, moves all extremities Psych/Mental Status: Normal Affect, Appropriate Assessment & Plan Assessment/Plan (1) ESRD (end stage renal disease): (2) Frequent falls: PLAN: Plan 1. DM2 with ESRD on dialysis with generalized weakness and frequent falls ?Sliding scale insulin ? Accu-Cheks ? Will monitor make adjustments as necessary ? Appreciate nephrology assistance with dialysis, they are unable to take any volume off yesterday because of low blood pressures hopefully will be able to remove some fluid today ? If need be can increase midodrine to 20 mg p.o. 3 times daily ? He will need to transition to hemodialysis it does not appear that the peritoneal dialysis is doing much at home 2. Paroxysmal A-fib/essential HTN/HLD/history of CVA ? Had an MCA CVA on the right status post thrombectomy at [facility] with continued left-sided weakness ? Continue with his amiodarone plus aspirin and Eliquis ? Continue with Crestor ? Given his hypotension we will hold torsemide 3. Anxiety/depression ? Stable ? Continue with his home medications 4. Suspected seizure disorder ? Continue zonisamide ? Stable 5. Iron deficiency anemia with anemia of chronic disease ? Continue with his iron supplementation ? B12 and folate levels are normal recently ? Transfused 2 units 06/28/2025, recheck today is 8.8 6. BPH with obstruction ? Stable ? Continue with his home medications 7. GERD ? Stable ? Continue PPI DVT: Eliquis Charges/Coding Visit Charges Inpatient E&M: 20836 Subs Hosp L2
[2025-07-07] MEDS: 0.9% Normal Saline 1,000 ML IV.SOLN. 1000 ML OPERA.SITE (09:47)
[2025-07-07] MEDS: PureFlow B 3K Dialysis Soln 1 BAG 6 BAG PF (09:48)
[2025-07-07] MEDS: 0.9% Saline Lock 10 ML Syringe IV (09:48)
--- NOTE | 2025-07-07 11:02 | PCM.PN.REN ---
Documented by User: PONCHO Sands 07/07/25 11:07 Subjective Subjective Patient seen on dialysis. No overnight events. at bedside. Patient received 2 unit PRBC yesterday. Objective Data Objective Data Vital Signs: Vital Signs Temp Pulse Resp BP Pulse Ox O2 Del Method O2 Flow Rate 97.8 F 79 14 88/58 L 96 Room Air 1 07/07/25 08:55 07/07/25 10:30 07/07/25 08:55 07/07/25 10:30 07/07/25 08:55 07/07/25 08:55 07/07/25 02:26 Oxygen Flow Rate (L/min) 1 Oxygen Delivery Method Room Air Weight: 108.2 kg Body Mass Index (BMI) 35.3 Intake & Output: Intake and Output for Last 24 Hours 07/05/25 07/06/25 07/07/25 23:59 23:59 23:59 Intake Total 100 / 100 2040 / 2040 400 / 400 Output Total 120 / 120 Balance 100 / 100 1920 / 1920 400 / 400 Lab / Micro Data 07/07/25 05:46 07/07/25 05:46 Labs: Laboratory Results - last 24 hr 07/06/25 11:40: Hgb 6.9 L, Hct 20.5 L, Blood Type AB POSITIVE, Antibody Screen NEGATIVE, Crossmatch See Detail 07/06/25 12:06: POC Glucose 105 07/06/25 16:48: POC Glucose 141 H 07/06/25 21:00: POC Glucose 151 H 07/07/25 05:46: WBC 6.9, RBC 2.70 L, Hgb 8.8 L, Hct 26.1 L, MCV 96.7 H D, MCH 32.6 H, MCHC 33.7, RDW Std Deviation 64.5 H, RDW Coeff of Whitney 18.1 H, Plt Count 178, MPV 10.7, Immature Gran % (Auto) 0.900, Neut % (Auto) 73.1 H, Lymph % (Auto) 10.4 L, [place] % (Auto) 9.1, Eos % (Auto) 5.9 H, Baso % (Auto) 0.6, Absolute Neuts (auto) 5.1, Absolute Lymphs (auto) 0.72 L, Nucleated RBC % 0, Sodium 135, Potassium 3.7, Chloride 102, Carbon Dioxide 20.9 L, Anion Gap 12, BUN 26 H, Creatinine 5.16 H, Estim Creat Clear Calc 14.99 L, Est GFR (MDRD) Non-Af 11 L, BUN/Creatinine Ratio 5.1 L, Glucose 107 H, Calcium 8.0 07/07/25 06:19: POC Glucose 100 Radiography Diagnostic Testing: Radiology Impression Knee X-Ray 07/06/25 14:48 IMPRESSION: No fracture seen. Reading Location: [facility] Physical Exam Narrative Alert and oriented x 3, no apparent distress S1, S2, RRR Diminished breath sounds Abdomen soft, rounded. PD catheter intact ++ Pitting edema bilateral lower legs. Edema noted to bilateral arms Left arm with Mikie wrap intact. Positive bruit auscultated thru Mikie wrap Tunneled hemodialysis catheter accessed for hemodialysis. Dressing clean, dry and intact Assessment & Plan Assessment/Plan (1) ESRD (end stage renal disease): PLAN: Plan This is a 75-year-old male with past medical history significant for ESRD, presented emergency room yesterday for weakness and falls. - ESRD on hemodialysis via tunneled hemodialysis catheter. Dialysis days Saturday. Patient undergoing hemodialysis today over 4 hours and attempting fluid removal as patient/blood pressure tolerates. Patient has been hypotensive, midodrine increased to 20 mg 3 times daily. Due to hypotension yesterday with dialysis only 100 mL fluid removed. Better blood pressure readings on lower right forearm but due to wound on forearm avoiding area. Will try to Doppler blood pressure to see if any difference in blood pressure readings. Patient does have a functioning left arm AV fistula but has not been cleared for access per vascular for hemodialysis at this time. He is following with vascular; patient had branch ligation end of April due to persistent edema. Patient does have edema noted to left arm, vascular has been contacted about this per patient's . Patient to elevate left arm on pillows while in bed. - Anemia of chronic disease; hemoglobin 8.8 post PRBC. - History of A-fib; on amiodarone - Weakness/falls; discharge planning possibly to ECF. Assessment and plan reviewed with Dr. Sanchez. Documented by User: Dr. Anuja Sanchez MD 07/07/25 19:06 Objective Data Lab / Micro Data 07/07/25 05:46 07/07/25 05:46 Assessment & Plan Assessment/Plan (1) ESRD (end stage renal disease): PLAN: Plan This is a 75-year-old male with past medical history significant for ESRD, presented emergency room yesterday for weakness and falls. - ESRD on hemodialysis via tunneled hemodialysis catheter. Dialysis days Saturday. Patient undergoing hemodialysis today over 4 hours and attempting fluid removal as patient/blood pressure tolerates. Patient has been hypotensive, midodrine increased to 20 mg 3 times daily. Due to hypotension yesterday with dialysis only 100 mL fluid removed. Better blood pressure readings on lower right forearm but due to wound on forearm avoiding area. Will try to Doppler blood pressure to see if any difference in blood pressure readings. Patient does have a functioning left arm AV fistula but has not been cleared for access per vascular for hemodialysis at this time. He is following with vascular; patient had branch ligation end of April due to persistent edema. Patient does have edema noted to left arm, vascular has been contacted about this per patient's . Patient to elevate left arm on pillows while in bed. - Anemia of chronic disease; hemoglobin 8.8 post PRBC. - History of A-fib; on amiodarone - Weakness/falls; discharge planning possibly to ECF. Assessment and plan reviewed with Dr. Sanchez. Addendum seen and examined independently. will need PD catheter out eventually. dw
--- NOTE | 2025-07-07 11:40 | CASEMGMT ---
Addendum entered by Jacque Ugarte 07/07/25 15:01: 1455- ANA PAULA OCHOA into pt room, pt sitting up in chair with at bedside. Pt and aware that [facility] can accept pt and transport him to dialysis. Pt and would like [facility] instead of [facility] because they do not want to use [employer]. Updated dc assistant unit forester. Original Note: Received notification from [facility] that pt can be transported at 6:45am for p/u at [facility] to [facility] with a pickers material handlers of [id number] from [facility] to go back to [facility] through pt insurance on //. They are asking if pt is agreeable to this. ANA PAULA OCHOA into pt room, pt receiving dialyisis and defers to . Pt states that she does not like the transport company [employer] and would rather see if [facility] is able to transport pt themselves to dialysis before making this decision. Updated DC asssistant.
--- NOTE | 2025-07-07 13:56 | CASEMGMT ---
Addendum entered by Zakia Valentine 07/07/25 14:58: [facility] has accepted and will submit for precert. Zakia Valentine DC Planning Asst. Original Note: Discharge Planning Referral sent via [facility]Port to [facility]. Zakia Valentine DC Planning Asst.
[2025-07-07] MEDS: Aspirin E.C. 81 MG Tablet PO (14:48)
[2025-07-07] MEDS: Magnesium Chloride 64 MG Delay Rel.Tablet PO (14:49)
[2025-07-07] MEDS: Cholecalciferol (VIT D3) 25 MCG TABLET (1,000 UNITS) 50 MCG PO (14:49)
[2025-07-07] MEDS: APIXABAN 5 MG TABLET PO ×2 (14:50→21:39)
[2025-07-07] MEDS: Insulin Glargine-YFGN 100 UNIT/ML Pen 18 UNIT SC (21:39)
[2025-07-07] MEDS: OLANZapine 5 MG/TAB TAB.RAPDIS PO (21:41)
[2025-07-08 05:21] VITALS: BMI 35.2
[2025-07-08 06:45] VITALS: BP 96/83; PULSE 95; RESP 18; TEMP 36.2; O2SAT 100
[2025-07-08 07:12] LABS: Hematocrit 25.6 % (40-54); Hemoglobin 8.6 g/dL (13.0-16.5); Immature Granulocytes Count 0.060 X10^3/uL (0.0-0.0); Mean Corp Hgb Conc 33.6 g/dL (32-36); Mean Corpuscular Volume 97.0 fL (80-94); Mean Platelet Vol. 11.3 fl (6.2-12.0); NRBC Flagged by Analyzer 0.3 % (0-5); POSITIVE MORPHOLOGY YES; Platelet Count 177 K/mm3 (150-450); RBC Distribution Width CV 18.5 % (11.6-14.6); RBC Distribution Width SD 65.9 fl (35.1-43.9); Red Blood Count 2.64 M/mm3 (4.6-6.2); White Blood Count 6.1 K/mm3 (4.4-11.0)
[2025-07-08 07:14] LABS: Differential Indicated SCAN CRITERIA MET
[2025-07-08 07:32] LABS: Anisocytosis 2+; Differential Comment SCANNED
[2025-07-08 07:37] LABS: Anion Gap 11 (5-15); BUN 22 mg/dL (4-19); BUN/Creat Ratio 5.0 RATIO (10-20); Calcium,Total 8.1 mg/dL (7.6-11.0); Carbon Dioxide 22.9 mmol/L (21.0-32.0); Chloride 102 mmol/L (98-108); Estimated Creatinine Clearance 18.05 ml/min (50-250); Glucose 160 mg/dL (70-99); Potassium 3.6 mmol/L (3.3-5.1)
--- NOTE | 2025-07-08 09:00 | PCM.PN.HOSP ---
Subjective Subjective Seems to be doing little bit better today, hemoglobin stable at 8.6. He still has drainage from his fistula site on the left will consult vascular surgery Objective Data Objective Data Vital Signs: Vital Signs Temp Pulse Resp BP Pulse Ox O2 Del Method O2 Flow Rate 97.1 F L 95 18 96/83 H 100 Room Air 1 07/08/25 06:45 07/08/25 06:45 07/08/25 06:45 07/08/25 06:45 07/08/25 06:45 07/08/25 06:45 07/07/25 02:26 Oxygen Flow Rate (L/min) 1 Oxygen Delivery Method Room Air Weight: 237 lb 14.06 oz Body Mass Index (BMI) 35.2 Intake & Output: Intake and Output for Last 24 Hours 07/07/25 07/08/25 07/09/25 03:59 03:59 03:59 Intake Total 2340 / 2340 Output Total 120 / 120 2140 / 2140 Balance 2220 / 2220 -2140 / -2140 Lab / Micro Data 07/08/25 06:23 07/08/25 06:23 Labs: Laboratory Results - last 24 hr 07/07/25 11:02: POC Glucose 139 H 07/07/25 16:12: POC Glucose 212 H 07/07/25 21:33: POC Glucose 235 H 07/08/25 06:23: WBC 6.1, RBC 2.64 L, Hgb 8.6 L, Hct 25.6 L, MCV 97.0 H, MCH 32.6 H, MCHC 33.6, RDW Std Deviation 65.9 H, RDW Coeff of Whitney 18.5 H, Plt Count 177, MPV 11.3, Immature Gran % (Auto) 1.000 H, Neut % (Auto) 70.5 H, Lymph % (Auto) 13.4 L, [place] % (Auto) 9.8, Eos % (Auto) 4.6, Baso % (Auto) 0.7, Absolute Neuts (auto) 4.3, Absolute Lymphs (auto) 0.82 L, Nucleated RBC % 0.3, Differential Comment SCANNED, Anisocytosis 2+, Sodium 136, Potassium 3.6, Chloride 102, Carbon Dioxide 22.9, Anion Gap 11, BUN 22 H, Creatinine 4.28 H, Estim Creat Clear Calc 18.05 L, Est GFR (MDRD) Non-Af 14 L, BUN/Creatinine Ratio 5.0 L, Glucose 160 H, Calcium 8.1 07/08/25 06:29: POC Glucose 157 H Physical Exam Narrative General: Alert, Oriented x3, Cooperative, No apparent distress HEENT: Atraumatic, PERRLA, EOMI, Normocephalic Oral: Moist Mucosa Neck: Supple, No JVD Lungs: Diminished, Normal air movement, No rhonchi, No wheeze, No rales Cardiovascular: Regular rate, Regular Rhythm, Normal S1, Normal S2, No murmurs Abdomen: Soft, Non Tender, Non-Distended, No Hepato-splenomegaly Extremities: Edema, Capillary Refill Less than 3 Seconds, left upper extremity is wrapped Skin: No rashes, No breakdown Musculoskeletal: No Tenderness to Palpation of Joints or Extremities Neurological: No focal neurological deficits, moves all extremities, neurological function appears to be at baseline Psych/Mental Status: Normal Affect, Appropriate Assessment & Plan Assessment/Plan (1) ESRD (end stage renal disease): (2) Frequent falls: PLAN: Plan 1. DM2 with ESRD on dialysis with generalized weakness and frequent falls ?Sliding scale insulin ? Accu-Cheks ? Will monitor make adjustments as necessary ? Appreciate nephrology assistance with dialysis, they are unable to take any volume off yesterday because of low blood pressures hopefully will be able to remove some fluid today ? If need be can increase midodrine to 20 mg p.o. 3 times daily ? Will consult vascular surgery at family request to evaluate the drainage from the fistula site, wound care has already been consulted 2. Paroxysmal A-fib/essential HTN/HLD/history of CVA ? 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 Continue with his amiodarone plus aspirin and Eliquis ? Continue with Crestor ? Given his hypotension we will hold torsemide 3. Anxiety/depression ? Stable ? Continue with his home medications 4. Suspected seizure disorder ? Continue zonisamide ? Stable 5. Iron deficiency anemia with anemia of chronic disease ? Continue with his iron supplementation ? B12 and folate levels are normal recently ? Transfused 2 units 06/28/2025, recheck today is 8.6 6. BPH with obstruction ? Stable ? Continue with his home medications 7. GERD ? Stable ? Continue PPI DVT: Eliquis Charges/Coding Visit Charges Inpatient E&M: 82352 Subs Hosp L2
[2025-07-08 09:46] VITALS: BP 87/47; PULSE 84; RESP 18; TEMP 36.4; O2SAT 96
[2025-07-08] MEDS: Aspirin E.C. 81 MG Tablet PO (10:55)
[2025-07-08] MEDS: APIXABAN 5 MG TABLET PO ×2 (10:55→21:10)
[2025-07-08] MEDS: Cholecalciferol (VIT D3) 25 MCG TABLET (1,000 UNITS) 50 MCG PO (10:56)
[2025-07-08] MEDS: Magnesium Chloride 64 MG Delay Rel.Tablet PO (10:56)
[2025-07-08 11:13] VITALS: BP 89/54; PULSE 87; RESP 18; TEMP 36.4; O2SAT 96
--- NOTE | 2025-07-08 11:34 | EX.PCM.CON.S ---
Assessment & Plan Assessment/Plan (1) A-V fistula: PLAN: LUE AVF is matured. No skin compromise overlying the fistula. He has had baseline LUE edema prior to this admission which has not improved despite prior branch ligations; no venous outflow stenosis to explain this; there are no further interventions to pursue other than fistula ligation to resolve the edema. If fistula were ligated, swelling may improve but then would need to consider AVF creation on the RUE and it is possible he could have similar response there. The edema is not a contraindication to utilizing the fistula if it functions well and edema is tolerable, reasonable to begin dialysis via fistula. HPI Consult Data Date of Consult: 07/08/25 HPI Narrative HPI Narrative: VIVI SAINI, is a 75 M who is known to our office; he had L upper arm brachiocephalic fistula creation on 11/30/24; subsequently as the fistula matured he developed significant LUE edema and delayed maturation and so underwent fistulogram which was negative for any contributory venous outflow stenosis and then had ligation of multiple fistula branches on 04/05/25. Ultrasound on 05/05/25 showed fistula to be adequately matured with good flow volumes and caliber; however, his edema has persisted. He is currently admitted with generalized edema. He had been doing peritoneal dialysis at home the last several weeks but it seems it was not effectively removing sufficient volume. Secondary to his edema, he developed multiple fluid filled blisters on his bilateral lower and upper extremities; there is concern due to one of these blisters being on the same arm as his fistula. 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 WANDA (obstructive sleep apnea) Cognitive dysfunction Easy bruising Excessive bleeding Gastric reflux Non-smoker History of Clostridium difficile infection Wears dentures Depression Anxiety Insulin dependent diabetes mellitus Walker as ambulation aid Ambulates with cane Arthritis History of renal dialysis High cholesterol Restless legs Back pain Dietary restriction Shortness of breath on exertion Leg cramps History of pain when walking History of edema History of Holter monitoring History of stress test History of echocardiogram Cardiology follow-up encounter Atrial tachycardia History of CVA (cerebrovascular accident) Left-sided weakness Diabetes mellitus, type 2 Persistent atrial fibrillation BPH (benign prostatic hyperplasia) Depression Normochromic normocytic anemia Iron deficiency History of iron deficiency Cerebral artery occlusion with cerebral infarction Acute right MCA stroke Longstanding persistent atrial fibrillation Chronic combined systolic and diastolic CHF (congestive heart failure) 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 (LBBB) Acute on chronic combined systolic (congestive) and diastolic (congestive) heart failure (02/02/20) History of non-ST elevation myocardial infarction (NSTEMI) (02/02/20) Non-ischemic cardiomyopathy NSVT (nonsustained ventricular tachycardia) Obesity CVA (cerebral vascular accident) (12/2017) Secondary pulmonary arterial hypertension GERD (gastroesophageal reflux disease) Hyperlipidemia Essential (primary) hypertension CKD (chronic kidney disease), stage III Paroxysmal atrial fibrillation Anemia Chronic low back pain Osteoarthritis Home Medications ?Medication ?Instructions ?Recorded ?Last Taken ?Type multivitamin (Daily Multi-Vitamin 1 tab PO DAILY Supplement 02/12/22 04/25/25 History tablet) tamsulosin 0.4 mg capsule 0.4 mg PO BID Urine retention 02/12/22 04/25/25 History ascorbic acid (vitamin C) 500 mg 1,000 mg PO LUNCH Supplement 02/28/23 04/25/25 History tablet acetaminophen 500 mg tablet 1,000 mg (2 x 500 mg) PO Q8H PRN 03/15/23 04/04/25 Rx PRN Pain 1-10 #1 TAB buspirone 15 mg tablet 15 mg PO TID Mood 11/22/23 04/25/25 History docusate sodium 100 mg capsule 100 mg PO BID PRN constipation 11/22/23 Unknown History olanzapine 5 mg tablet 5 mg PO QHS mental health 11/22/23 04/25/25 History omeprazole 40 mg capsule,delayed 40 mg PO QDAY reflux 11/22/23 04/25/25 History release sertraline 100 mg tablet 100 mg PO QDAY mental health 11/22/23 04/25/25 History zonisamide 50 mg capsule 50 mg PO BID seizures 11/22/23 04/25/25 History aspirin 81 mg tablet,delayed 81 mg PO QDAY Cardiac 12/08/24 04/25/25 History release (Adult Low Dose Aspirin) rosuvastatin 20 mg tablet 20 mg PO QDAY cholesterol 12/08/24 04/25/25 History cholecalciferol (vitamin D3) 25 50 mcg PO DAILY vitamin supplement 02/18/25 04/25/25 History mcg (1,000 unit) tablet amiodarone 200 mg tablet 100 mg PO Q24H BP 03/26/25 04/25/25 History fenofibrate 54 mg tablet 108 mg PO DAILY cholesterol 03/26/25 04/25/25 History finasteride 5 mg tablet 5 mg PO QHS prostate 03/26/25 04/25/25 History apixaban 5 mg tablet (Eliquis) 5 mg PO BID elequis 04/26/25 04/25/25 History dextrose 40 % oral gel 10 g PO Q15M PRN hypoglycemia 04/26/25 Unknown History doxycycline hyclate 100 mg capsule 100 mg PO BID infection 04/26/25 04/25/25 History insulin glargine 100 unit/mL (3 18 unit subcut QHS Diabetes 04/26/25 04/25/25 History mL) subcutaneous pen (Lantus Solostar U-100 Insulin) insulin lispro 100 unit/mL 15 unit subcut DAILY@0800 04/26/25 04/25/25 History subcutaneous pen (Humalog KwikPen SLIDINING SCALE (U-100) Insulin) magnesium 250 mg tablet 250 mg PO DAILY SUPPLEMENT 04/26/25 04/25/25 History ondansetron HCl 4 mg tablet 2 mg PO Q8H nausea and vomiting 04/26/25 04/25/25 History polyethylene glycol 3350 17 17 g PO DAILY PRN constipation 04/26/25 Unknown History gram/dose oral powder (ClearLax) insulin lispro 100 unit/mL 17 unit subcut DAILY@1200 diabetes 07/01/25 Unknown History subcutaneous pen (Humalog KwikPen (U-100) Insulin) insulin lispro 100 unit/mL 19 unit subcut DAILY@1700 diabetes 07/01/25 Unknown History subcutaneous pen (Humalog KwikPen (U-100) Insulin) midodrine 5 mg tablet 5 mg PO TID blood pressure 07/01/25 Unknown History Allergy/AdvReac Type Severity Reaction Status Date / Time rofecoxib Allergy Severe Swelling Verified 06/01/25 16:40 Family History Mother Heart disease Sister Heart disease Myocardial infarction CVA (cerebral vascular accident) Diabetes Brother CVA (cerebral vascular accident) Other Persistent atrial fibrillation Surgical History History of insertion of nerve stimulator History of surgery Hx of colonoscopy Hx of lumbar discectomy Hx of total knee arthroplasty History of knee replacement, total Social History household members: spouse Smoking Status: Never smoker alcohol intake: current alcohol intake frequency: holidays/special occasions only Alcohol type: beer substance use type: does not use caffeine: Yes Type: coffee Number of servings: 2 Physical Exam Const alert and oriented x3 HEENT normocephalic, head/scalp atraumatic and external nose normal Eyes General Eye: normal appearance of both eyes Neck Neck Narrative: R IJ tunneled catheter Resp normal respiratory effort and no retractions Effort and Inspection: able to speak in complete sentences Cardio Rate: regular rate Extremity Extremity Narrative: LUE AV fistula with palpable thrill and good bruit throughout; generalized edema. There is a very superficial ulceration on the lateral aspect of his dorsal forearm, no erythema/purulence. Skin overlying his fistula is intact without ulceration/compromise. Psych mental status grossly normal Appearance: grossly normal Lab / Micro Data 07/08/25 06:23 07/08/25 06:23 Labs: Laboratory Results - last 24 hr 07/07/25 11:02: POC Glucose 139 H 07/07/25 16:12: POC Glucose 212 H 07/07/25 21:33: POC Glucose 235 H 07/08/25 06:23: WBC 6.1, RBC 2.64 L, Hgb 8.6 L, Hct 25.6 L, MCV 97.0 H, MCH 32.6 H, MCHC 33.6, RDW Std Deviation 65.9 H, RDW Coeff of Whitney 18.5 H, Plt Count 177, MPV 11.3, Immature Gran % (Auto) 1.000 H, Neut % (Auto) 70.5 H, Lymph % (Auto) 13.4 L, [place] % (Auto) 9.8, Eos % (Auto) 4.6, Baso % (Auto) 0.7, Absolute Neuts (auto) 4.3, Absolute Lymphs (auto) 0.82 L, Nucleated RBC % 0.3, Differential Comment SCANNED, Anisocytosis 2+, Sodium 136, Potassium 3.6, Chloride 102, Carbon Dioxide 22.9, Anion Gap 11, BUN 22 H, Creatinine 4.28 H, Estim Creat Clear Calc 18.05 L, Est GFR (MDRD) Non-Af 14 L, BUN/Creatinine Ratio 5.0 L, Glucose 160 H, Calcium 8.1 07/08/25 06:29: POC Glucose 157 H Charges/Coding Visit Charges Inpatient E&M: 79315 Init Hosp L1
--- NOTE | 2025-07-08 13:26 | PCM.PN.REN ---
Subjective Subjective Patient resting quietly. No overnight events. at bedside. Objective Data Objective Data Vital Signs: Vital Signs Temp Pulse Resp BP Pulse Ox O2 Del Method O2 Flow Rate 97.5 F L 87 18 89/54 L 96 Room Air 1 07/08/25 11:13 07/08/25 11:13 07/08/25 11:13 07/08/25 11:13 07/08/25 11:13 07/08/25 11:13 07/07/25 02:26 Oxygen Flow Rate (L/min) 1 Oxygen Delivery Method Room Air Weight: 107.9 kg Body Mass Index (BMI) 35.2 Intake & Output: Intake and Output for Last 24 Hours 07/06/25 07/07/25 07/08/25 23:59 23:59 23:59 Intake Total 2040 / 2040 400 / 400 Output Total 120 / 120 2140 / 2140 Balance 1920 / 1920 -1740 / -1740 Lab / Micro Data 07/08/25 06:23 07/08/25 06:23 Labs: Laboratory Results - last 24 hr 07/07/25 16:12: POC Glucose 212 H 07/07/25 21:33: POC Glucose 235 H 07/08/25 06:23: WBC 6.1, RBC 2.64 L, Hgb 8.6 L, Hct 25.6 L, MCV 97.0 H, MCH 32.6 H, MCHC 33.6, RDW Std Deviation 65.9 H, RDW Coeff of Whitney 18.5 H, Plt Count 177, MPV 11.3, Immature Gran % (Auto) 1.000 H, Neut % (Auto) 70.5 H, Lymph % (Auto) 13.4 L, [place] % (Auto) 9.8, Eos % (Auto) 4.6, Baso % (Auto) 0.7, Absolute Neuts (auto) 4.3, Absolute Lymphs (auto) 0.82 L, Nucleated RBC % 0.3, Differential Comment SCANNED, Anisocytosis 2+, Sodium 136, Potassium 3.6, Chloride 102, Carbon Dioxide 22.9, Anion Gap 11, BUN 22 H, Creatinine 4.28 H, Estim Creat Clear Calc 18.05 L, Est GFR (MDRD) Non-Af 14 L, BUN/Creatinine Ratio 5.0 L, Glucose 160 H, Calcium 8.1 07/08/25 06:29: POC Glucose 157 H 07/08/25 11:06: POC Glucose 171 H Physical Exam Narrative Alert and oriented x 3, no apparent distress S1, S2, RRR Diminished breath sounds, no rales or rhonchi. On room air Abdomen soft, rounded. PD catheter intact ++ Pitting edema bilateral lower legs. Edema noted to bilateral arms Left arm with Mikie wrap intact. Positive bruit auscultated thru Mikie wrap Tunneled hemodialysis catheter accessed for hemodialysis. Dressing clean, dry and intact Assessment & Plan Assessment/Plan (1) ESRD (end stage renal disease): PLAN: Plan This is a 75-year-old male with past medical history significant for ESRD, presented emergency room yesterday for weakness and falls. - ESRD on hemodialysis via tunneled hemodialysis catheter. Dialysis days Saturday. 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 AVF left arm, +thrill and bruit. Edema left arm, vascular consulted. We have not cannulated left arm AVF, continue to use TDC for hemodialysis. - Anemia of chronic disease; hemoglobin 8.8 post PRBC. - History of A-fib; on amiodarone - Weakness/falls; discharge planning possibly to ECF. Assessment and plan reviewed with Dr. Sanchez.
--- NOTE | 2025-07-08 15:57 | CASEMGMT ---
Discharge Planning Call rec'd from Rohit at [facility]. While they initially rec'd a auth ref#, [facility] came back and said that they were out of network with pts plan and would not offer a one-time auth for this pt. Referral changed to decline. RN DON updated. Zakia Valentine DC Planning Asst.
--- NOTE | 2025-07-08 16:14 | CASEMGMT ---
Addendum entered by Jacque Ugarte 07/08/25 16:34: ANA PAULA OCHOA back into pt room, pt and family has chosen [facility]. They are agreeable to Provide A Ride as well. 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 Original Note: ANA PAULA OCHOA made aware that [facility] states pt is OON. ANA PAULA OCHOA into pt room, pt and son present, pt agreeable to discussion with family present. ANA PAULA OCHOA made pt aware that [facility] is unable to take him. Requested next choice and to see if they would want [facility] and are agreeable to Provide A Ride. Pt states that she does not have the list. Reprinted SNF list and given. Requested a decision for SNF, pt son states pt is not ready to dc yet. Per hospitalist, pt is medically ready after PD cath pulled tomorrow. Pt and family aware that a SNF needs to accept and insurance auth needs obtained prior to dc. Family to review list, ANA PAULA OCHOA to check back.
--- NOTE | 2025-07-08 16:37 | CASEMGMT ---
Addendum entered by Zakia Valentine 07/09/25 08:08: [facility] accepted and has submitted for precert. Zakia Valentine DC Planning Asst. Original Note: Discharge Planning Referral re-sent to [facility]. Zakia Valentine DC Planning Asst.
[2025-07-08 17:00] VITALS: BP 95/57; PULSE 80; RESP 18; TEMP 36.6; O2SAT 96
[2025-07-08] MEDS: 0.9% Saline Lock 10 ML Syringe IV (18:11)
[2025-07-08 21:07] VITALS: BP 109/55; PULSE 80; RESP 15; TEMP 36.8; O2SAT 96
[2025-07-08] MEDS: OLANZapine 5 MG/TAB TAB.RAPDIS PO (21:10)
[2025-07-08] MEDS: Insulin Glargine-YFGN 100 UNIT/ML Pen 18 UNIT SC (21:23)
[2025-07-09] VITALS (13 sets, daily range): BP systolic 80–109; BP diastolic 54–73; PULSE 80–105; RESP 14–18; TEMP 36.5–37.1; O2SAT 94–99; BMI 35.4; BMI 34.6
[2025-07-09 05:50] LABS: Hematocrit 25.1 % (40-54); Hemoglobin 8.6 g/dL (13.0-16.5); Immature Granulocytes Count 0.090 X10^3/uL (0.0-0.0); Mean Corp Hgb Conc 34.3 g/dL (32-36); Mean Corpuscular Volume 96.9 fL (80-94); Mean Platelet Vol. 10.8 fl (6.2-12.0); NRBC Flagged by Analyzer 0 % (0-5); Platelet Count 189 K/mm3 (150-450); RBC Distribution Width CV 17.8 % (11.6-14.6); RBC Distribution Width SD 63.6 fl (35.1-43.9); Red Blood Count 2.59 M/mm3 (4.6-6.2); White Blood Count 7.7 K/mm3 (4.4-11.0)
[2025-07-09 05:52] LABS: Prothrombin Time (Protime)PT. 20.8 SECONDS (11.7-14.9)
[2025-07-09 05:53] LABS: Partial Thromboplast Time 39.0 Seconds (24.1-36.2)
[2025-07-09 06:06] LABS: AST(SGOT) 29 U/L (<=37); Alanine Aminotransfer ALT/SGPT 19 U/L (<=46); Albumin, Serum 2.3 g/dL (3.4-4.8); Alkaline Phosphatase 89 U/L (40-129); Anion Gap 12 (5-15); BUN 28 mg/dL (4-19); BUN/Creat Ratio 5.2 RATIO (10-20); Bilirubin, Direct 0.21 mg/dL (0.00-0.30); Calcium,Total 7.9 mg/dL (7.6-11.0); Carbon Dioxide 20.7 mmol/L (21.0-32.0); Chloride 101 mmol/L (98-108); Estimated Creatinine Clearance 14.47 ml/min (50-250); Globulin 1.8 g/dL (2.2-4.2); Glucose 203 mg/dL (70-99); Potassium 3.8 mmol/L (3.3-5.1)
[2025-07-09] MEDS: PureFlow B 2K Dialysis Soln 1 BAG 6 BAG PF (08:12)
[2025-07-09] MEDS: 0.9% Normal Saline 1,000 ML IV.SOLN. 1000 ML OPERA.SITE (08:12)
--- NOTE | 2025-07-09 08:35 | PCM.PN.HOSP ---
Subjective Subjective Doing dialysis this morning, plan to have his PD catheter removed Objective Data Objective Data Vital Signs: Vital Signs Temp Pulse Resp BP Pulse Ox O2 Del Method O2 Flow Rate 98.4 F 95 14 109/72 94 Room Air 1 07/09/25 07:45 07/09/25 08:25 07/09/25 08:25 07/09/25 08:25 07/09/25 07:45 07/09/25 08:25 07/07/25 02:26 Oxygen Flow Rate (L/min) 1 Oxygen Delivery Method Room Air Weight: 238 lb 15.697 oz Body Mass Index (BMI) 35.4 Intake & Output: Intake and Output for Last 24 Hours 07/08/25 07/09/25 07/10/25 03:59 03:59 03:59 Output Total 2140 / 2139 Balance -2140 / -0 Lab / Micro Data 07/09/25 05:24 07/09/25 05:24 Labs: Laboratory Results - last 24 hr 07/08/25 11:06: POC Glucose 171 H 07/08/25 16:39: POC Glucose 234 H 07/08/25 21:20: POC Glucose 310 H 07/09/25 05:24: WBC 7.7, RBC 2.59 L, Hgb 8.6 L, Hct 25.1 L, MCV 96.9 H, MCH 33.2 H, MCHC 34.3, RDW Std Deviation 63.6 H, RDW Coeff of Whitney 17.8 H, Plt Count 189, MPV 10.8, Immature Gran % (Auto) 1.200 H, Neut % (Auto) 74.1 H, Lymph % (Auto) 10.1 L, [place] % (Auto) 10.5 H, Eos % (Auto) 3.6, Baso % (Auto) 0.5, Absolute Neuts (auto) 5.7, Absolute Lymphs (auto) 0.78 L, Nucleated RBC % 0, PT 20.8 H, INR 1.8, APTT 39.0 H, Sodium 133, Potassium 3.8, Chloride 101, Carbon Dioxide 20.7 L, Anion Gap 12, BUN 28 H, Creatinine 5.35 H, Estim Creat Clear Calc 14.47 L, Est GFR (MDRD) Non-Af 10 L, BUN/Creatinine Ratio 5.2 L, Glucose 203 H, Calcium 7.9, Total Bilirubin 0.31, Direct Bilirubin 0.21, AST 29, ALT 19, Alkaline Phosphatase 89, Total Protein 4.1 L, Albumin 2.3 L, Globulin 1.8 L 07/09/25 07:06: POC Glucose 196 H Physical Exam Narrative General: Alert, Oriented x3, Cooperative, No apparent distress HEENT: Atraumatic, PERRLA, EOMI, Normocephalic Oral: Moist Mucosa Neck: Supple, No JVD Lungs: Diminished, Normal air movement, No rhonchi, No wheeze, No rales Cardiovascular: Regular rate, Regular Rhythm, Normal S1, Normal S2, No murmurs Abdomen: Soft, Non Tender, Non-Distended, No Hepato-splenomegaly Extremities: Edema, Capillary Refill Less than 3 Seconds, left upper extremity is wrapped Skin: No rashes, No breakdown Musculoskeletal: No Tenderness to Palpation of Joints or Extremities Neurological: No focal neurological deficits, moves all extremities, neurological function appears to be at baseline Psych/Mental Status: Normal Affect, Appropriate Assessment & Plan Assessment/Plan (1) ESRD (end stage renal disease): (2) Frequent falls: PLAN: Plan 1. DM2 with ESRD on dialysis with generalized weakness and frequent falls ?Sliding scale insulin ? Accu-Cheks ? Will monitor make adjustments as necessary ? Appreciate nephrology assistance with dialysis ? Continue with midodrine to 20 mg p.o. 3 times daily ? Will consult vascular surgery at family request to evaluate the drainage from the fistula site, wound care has already been consulted ? Consulted general surgery for removal of his PD catheter as we will transition completely to hemodialysis 2. Paroxysmal A-fib/essential HTN/HLD/history of CVA ? 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 Continue with his amiodarone plus aspirin and Eliquis ? Continue with Crestor ? Given his hypotension we will hold torsemide 3. Anxiety/depression ? Stable ? Continue with his home medications 4. Suspected seizure disorder ? Continue zonisamide ? Stable 5. Iron deficiency anemia with anemia of chronic disease ? Continue with his iron supplementation ? B12 and folate levels are normal recently ? Transfused 2 units 06/28/2025 gross 6. BPH with obstruction ? Stable ? Continue with his home medications 7. GERD ? Stable ? Continue PPI DVT: Eliquis Charges/Coding Visit Charges Inpatient E&M: 72942 Subs Hosp L2
[2025-07-09] MEDS: 0.9% Saline Lock 10 ML Syringe IV ×2 (11:48→21:59)
[2025-07-09] MEDS: Cholecalciferol (VIT D3) 25 MCG TABLET (1,000 UNITS) 50 MCG PO (12:44)
[2025-07-09] MEDS: Magnesium Chloride 64 MG Delay Rel.Tablet PO (12:46)
[2025-07-09] MEDS: APIXABAN 5 MG TABLET PO ×2 (12:46→21:57)
[2025-07-09] MEDS: Aspirin E.C. 81 MG Tablet PO (12:46)
--- NOTE | 2025-07-09 14:38 | CASEMGMT ---
Received tc from Evangelina at [facility], she is aware that pt now will be going to [place] [facility] and will be here through the weekend.
--- NOTE | 2025-07-09 15:04 | EX.PCM.CON.S ---
Assessment & Plan Assessment/Plan (1) ESRD (end stage renal disease): PLAN: Plan The patient is a 75-year-old male with end-stage renal disease. A request was placed to remove a peritoneal dialysis catheter. This was successfully performed at the bedside today. Please see procedure note for procedure details. The patient tolerated this well. Do not foresee any further surgical needs at this time. Will sign off. Please call if any questions or concerns arise HPI Consult Data Date of Consult: 07/09/25 HPI Narrative Reason for Consultation: PD catheter removal HPI Narrative: VIVI SAINI, is a 75 M who has a history of renal failure requiring dialysis. Previously he had been using peritoneal dialysis and has recently switched to hemodialysis. He was admitted with generalized weakness and falls. During this hospitalization a surgical consult was placed to remove his peritoneal dialysis catheter. We discussed the details of the planned procedure and he wished to proceed. A consent form was signed. [facility] Medical History A-V fistula ESRD (end stage renal disease) on dialysis Chronic anticoagulation Physical debility Arteriovenous fistula of left upper extremity Leg swelling Dyspnea on exertion Fatigue Shortness of breath CKD (chronic kidney disease) Bilateral leg edema Preoperative cardiovascular examination Osteopenia determined by x-ray Aftercare following explantation of knee joint prosthesis Infected prosthetic knee joint Urine retention MCC current use of amiodarone WANDA (obstructive sleep apnea) Cognitive dysfunction Easy bruising Excessive bleeding Gastric reflux Non-smoker History of Clostridium difficile infection Wears dentures Depression Anxiety Insulin dependent diabetes mellitus Walker as ambulation aid Ambulates with cane Arthritis History of renal dialysis High cholesterol Restless legs Back pain Dietary restriction Shortness of breath on exertion Leg cramps History of pain when walking History of edema History of Holter monitoring History of stress test History of echocardiogram Cardiology follow-up encounter Atrial tachycardia History of CVA (cerebrovascular accident) Left-sided weakness Diabetes mellitus, type 2 Persistent atrial fibrillation BPH (benign prostatic hyperplasia) Depression Normochromic normocytic anemia Iron deficiency History of iron deficiency Cerebral artery occlusion with cerebral infarction Acute right MCA stroke Longstanding persistent atrial fibrillation Chronic combined systolic and diastolic CHF (congestive heart failure) 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 (LBBB) Acute on chronic combined systolic (congestive) and diastolic (congestive) heart failure (02/02/20) History of non-ST elevation myocardial infarction (NSTEMI) (05/26/20) Non-ischemic cardiomyopathy NSVT (nonsustained ventricular tachycardia) Obesity CVA (cerebral vascular accident) (12/2017) Secondary pulmonary arterial hypertension GERD (gastroesophageal reflux disease) Hyperlipidemia Essential (primary) hypertension CKD (chronic kidney disease), stage III Paroxysmal atrial fibrillation Anemia Chronic low back pain Osteoarthritis Home Medications ?Medication ?Instructions ?Recorded ?Last Taken ?Type multivitamin (Daily Multi-Vitamin 1 tab PO DAILY Supplement 02/12/22 04/25/25 History tablet) tamsulosin 0.4 mg capsule 0.4 mg PO BID Urine retention 02/12/22 04/25/25 History ascorbic acid (vitamin C) 500 mg 1,000 mg PO LUNCH Supplement 02/28/23 04/25/25 History tablet acetaminophen 500 mg tablet 1,000 mg (2 x 500 mg) PO Q8H PRN 03/15/23 04/04/25 Rx PRN Pain 1-10 #1 TAB buspirone 15 mg tablet 15 mg PO TID Mood 11/22/23 04/25/25 History docusate sodium 100 mg capsule 100 mg PO BID PRN constipation 11/22/23 Unknown History olanzapine 5 mg tablet 5 mg PO QHS mental health 11/22/23 04/25/25 History omeprazole 40 mg capsule,delayed 40 mg PO QDAY reflux 11/22/23 04/25/25 History release sertraline 100 mg tablet 100 mg PO QDAY mental health 11/22/23 04/25/25 History zonisamide 50 mg capsule 50 mg PO BID seizures 11/22/23 04/25/25 History aspirin 81 mg tablet,delayed 81 mg PO QDAY Cardiac 12/08/24 04/25/25 History release (Adult Low Dose Aspirin) rosuvastatin 20 mg tablet 20 mg PO QDAY cholesterol 12/08/24 04/25/25 History cholecalciferol (vitamin D3) 25 50 mcg PO DAILY vitamin supplement 02/18/25 04/25/25 History mcg (1,000 unit) tablet amiodarone 200 mg tablet 100 mg PO Q24H BP 03/26/25 04/25/25 History fenofibrate 54 mg tablet 108 mg PO DAILY cholesterol 03/26/25 04/25/25 History finasteride 5 mg tablet 5 mg PO QHS prostate 03/26/25 04/25/25 History apixaban 5 mg tablet (Eliquis) 5 mg PO BID elequis 04/26/25 04/25/25 History dextrose 40 % oral gel 10 g PO Q15M PRN hypoglycemia 04/26/25 Unknown History doxycycline hyclate 100 mg capsule 100 mg PO BID infection 04/26/25 04/25/25 History insulin glargine 100 unit/mL (3 18 unit subcut QHS Diabetes 04/26/25 04/25/25 History mL) subcutaneous pen (Lantus Solostar U-100 Insulin) insulin lispro 100 unit/mL 15 unit subcut DAILY@0800 04/26/25 04/25/25 History subcutaneous pen (Humalog KwikPen SLIDINING SCALE (U-100) Insulin) magnesium 250 mg tablet 250 mg PO DAILY SUPPLEMENT 04/26/25 04/25/25 History ondansetron HCl 4 mg tablet 2 mg PO Q8H nausea and vomiting 04/26/25 04/25/25 History polyethylene glycol 3350 17 17 g PO DAILY PRN constipation 04/26/25 Unknown History gram/dose oral powder (ClearLax) insulin lispro 100 unit/mL 17 unit subcut DAILY@1200 diabetes 07/01/25 Unknown History subcutaneous pen (Humalog KwikPen (U-100) Insulin) insulin lispro 100 unit/mL 19 unit subcut DAILY@1700 diabetes 07/01/25 Unknown History subcutaneous pen (Humalog KwikPen (U-100) Insulin) midodrine 5 mg tablet 5 mg PO TID blood pressure 07/01/25 Unknown History Allergy/AdvReac Type Severity Reaction Status Date / Time rofecoxib Allergy Severe Swelling Verified 06/01/25 16:40 Family History Mother Heart disease Sister Heart disease Myocardial infarction CVA (cerebral vascular accident) Diabetes Brother CVA (cerebral vascular accident) Other Persistent atrial fibrillation Surgical History History of insertion of nerve stimulator History of surgery Hx of colonoscopy Hx of lumbar discectomy Hx of total knee arthroplasty History of knee replacement, total Social History household members: spouse Smoking Status: Never smoker alcohol intake: current alcohol intake frequency: holidays/special occasions only Alcohol type: beer substance use type: does not use caffeine: Yes Type: coffee Number of servings: 2 Physical Exam Narrative He is alert and oriented x 3. He is in no acute distress. Peritoneal dialysis catheter noted in the right lower abdomen. No evidence of infection was noted. Lab / Micro Data 07/09/25 05:24 07/09/25 05:24 Labs: Laboratory Results - last 24 hr 07/08/25 16:39: POC Glucose 234 H 07/08/25 21:20: POC Glucose 310 H 07/09/25 05:24: WBC 7.7, RBC 2.59 L, Hgb 8.6 L, Hct 25.1 L, MCV 96.9 H, MCH 33.2 H, MCHC 34.3, RDW Std Deviation 63.6 H, RDW Coeff of Whitney 17.8 H, Plt Count 189, MPV 10.8, Immature Gran % (Auto) 1.200 H, Neut % (Auto) 74.1 H, Lymph % (Auto) 10.1 L, [place] % (Auto) 10.5 H, Eos % (Auto) 3.6, Baso % (Auto) 0.5, Absolute Neuts (auto) 5.7, Absolute Lymphs (auto) 0.78 L, Nucleated RBC % 0, PT 20.8 H, INR 1.8, APTT 39.0 H, Sodium 133, Potassium 3.8, Chloride 101, Carbon Dioxide 20.7 L, Anion Gap 12, BUN 28 H, Creatinine 5.35 H, Estim Creat Clear Calc 14.47 L, Est GFR (MDRD) Non-Af 10 L, BUN/Creatinine Ratio 5.2 L, Glucose 203 H, Calcium 7.9, Total Bilirubin 0.31, Direct Bilirubin 0.21, AST 29, ALT 19, Alkaline Phosphatase 89, Total Protein 4.1 L, Albumin 2.3 L, Globulin 1.8 L 07/09/25 07:06: POC Glucose 196 H 07/09/25 11:13: POC Glucose 149 H
--- NOTE | 2025-07-09 15:08 | PCM.OPRPT ---
Procedures Digestive 40xxx-49xxx: Other Procedure See Notes (71068=WF cath removal ) Operative Report (Standard) Operative Information Date of Procedure: 07/09/25 Pre-Operative Diagnosis: End-stage renal disease Post-Operative Diagnosis: Same Surgery/Procedure Performed: Removal of peritoneal dialysis catheter scientific systems analyst: No Type of Anesthesia: Local Procedure Start Time: 14:15 Procedure Stop Time: 14:45 Select all DRAINS/GRAFTS/IMPLANTS that apply: None Estimated Blood Loss: 5 mL Specimen collected: No Description of surgery: The patient is a 75-year-old male in need of removal of a peritoneal dialysis catheter. We discussed the details of the planned procedure and he wished to proceed. He states that he would prefer this at the bedside rather than in the operating room. After obtaining informed consent, the right lower abdomen was then prepped and draped in the usual sterile manner. About 10 cc of local anesthetic were injected into the skin in this area just medial to the insertion point of the catheter. A #15 blade was then used to make about a 4 to 5 cm incision horizontally overlying the direction of the catheter. Blunt finger dissection was used to identify the more superficial dacryon cuff. This was freed up with finger dissection as well as dissection with a hemostat. The tube was then grasped between the 2 cuffs. The more distal cuff was able to be identified. Patient has quite a bit of subcutaneous tissue which made dissection difficult and the cuffs were placed very deeply. The more distal cuff seem to be at about the level of his fascia. In the process of retracting, the tube broke in half. I was able to grasp the 1 end of the catheter and freed up the second cuff enough to remove the catheter in its entirety. Hemostasis was excellent. The wound was closed with 4-0 Vicryl. Skin glue was applied as dressing. The patient tolerated the procedure well Surgical Findings: Peritoneal dialysis catheter successfully removed Complications Complications: No Admit VTE Documentation VTE Present on Admission: No VTE Mechan Device Prophylaxis: SCD's VTE Pharm Prophylaxis ordered?: Yes
--- NOTE | 2025-07-09 15:26 | PCM.PN.REN ---
Subjective Subjective no new events Objective Data Objective Data Vital Signs: Vital Signs Temp Pulse Resp BP Pulse Ox O2 Del Method O2 Flow Rate 98.4 F 105 H 14 103/64 99 Room Air 1 07/09/25 07:45 07/09/25 12:03 07/09/25 12:03 07/09/25 12:03 07/09/25 12:03 07/09/25 12:03 07/07/25 02:26 Oxygen Flow Rate (L/min) 1 Oxygen Delivery Method Room Air Weight: 106 kg Body Mass Index (BMI) 34.6 Intake & Output: Intake and Output for Last 24 Hours 07/07/25 07/08/25 07/09/25 23:59 23:59 23:59 Intake Total 400 / 400 Output Total 2140 / 2140 2400 / 2400 Balance -1740 / -1740 -2400 / -2400 Lab / Micro Data 07/09/25 05:24 07/09/25 05:24 Labs: Laboratory Results - last 24 hr 07/08/25 16:39: POC Glucose 234 H 07/08/25 21:20: POC Glucose 310 H 07/09/25 05:24: WBC 7.7, RBC 2.59 L, Hgb 8.6 L, Hct 25.1 L, MCV 96.9 H, MCH 33.2 H, MCHC 34.3, RDW Std Deviation 63.6 H, RDW Coeff of Whitney 17.8 H, Plt Count 189, MPV 10.8, Immature Gran % (Auto) 1.200 H, Neut % (Auto) 74.1 H, Lymph % (Auto) 10.1 L, [place] % (Auto) 10.5 H, Eos % (Auto) 3.6, Baso % (Auto) 0.5, Absolute Neuts (auto) 5.7, Absolute Lymphs (auto) 0.78 L, Nucleated RBC % 0, PT 20.8 H, INR 1.8, APTT 39.0 H, Sodium 133, Potassium 3.8, Chloride 101, Carbon Dioxide 20.7 L, Anion Gap 12, BUN 28 H, Creatinine 5.35 H, Estim Creat Clear Calc 14.47 L, Est GFR (MDRD) Non-Af 10 L, BUN/Creatinine Ratio 5.2 L, Glucose 203 H, Calcium 7.9, Total Bilirubin 0.31, Direct Bilirubin 0.21, AST 29, ALT 19, Alkaline Phosphatase 89, Total Protein 4.1 L, Albumin 2.3 L, Globulin 1.8 L 07/09/25 07:06: POC Glucose 196 H 07/09/25 11:13: POC Glucose 149 H Physical Exam Narrative Alert and oriented x 3, no apparent distress S1, S2, RRR Diminished breath sounds, no rales or rhonchi. On room air Abdomen soft, rounded. PD catheter intact ++ Pitting edema bilateral lower legs. Edema noted to bilateral arms Left arm with Mikie wrap intact. Positive bruit auscultated thru Mikie wrap Tunneled hemodialysis catheter accessed for hemodialysis. Dressing clean, dry and intact Assessment & Plan Assessment/Plan (1) ESRD (end stage renal disease): PLAN: Plan This is a 75-year-old male with past medical history significant for ESRD, presented emergency room yesterday for weakness and falls. - ESRD on hemodialysis via tunneled hemodialysis catheter. Dialysis days Saturday. HD today PD removal today
[2025-07-09] MEDS: OLANZapine 5 MG/TAB TAB.RAPDIS PO (21:58)
[2025-07-09] MEDS: Insulin Glargine-YFGN 100 UNIT/ML Pen 18 UNIT SC (22:03)
[2025-07-10 03:30] VITALS: BP 96/60; PULSE 94; RESP 18; TEMP 36.5; O2SAT 95
[2025-07-10 03:51] VITALS: BMI 34.7
[2025-07-10 03:56] LABS: Hematocrit 28.2 % (40-54); Hemoglobin 9.0 g/dL (13.0-16.5); Immature Granulocytes Count 0.080 X10^3/uL (0.0-0.0); Mean Corp Hgb Conc 31.9 g/dL (32-36); Mean Corpuscular Volume 100.0 fL (80-94); Mean Platelet Vol. 10.8 fl (6.2-12.0); NRBC Flagged by Analyzer 0.3 % (0-5); Platelet Count 202 K/mm3 (150-450); RBC Distribution Width CV 17.6 % (11.6-14.6); RBC Distribution Width SD 64.8 fl (35.1-43.9); Red Blood Count 2.82 M/mm3 (4.6-6.2); White Blood Count 7.3 K/mm3 (4.4-11.0)
[2025-07-10 04:23] LABS: Anion Gap 11 (5-15); BUN 22 mg/dL (4-19); BUN/Creat Ratio 5.1 RATIO (10-20); Calcium,Total 8.0 mg/dL (7.6-11.0); Carbon Dioxide 21.6 mmol/L (21.0-32.0); Chloride 101 mmol/L (98-108); Estimated Creatinine Clearance 17.85 ml/min (50-250); Glucose 185 mg/dL (70-99); Potassium 3.7 mmol/L (3.3-5.1)
[2025-07-10 06:10] VITALS: BP 92/65; PULSE 94; RESP 17; TEMP 36.8; O2SAT 97
[2025-07-10 08:26] VITALS: BP 105/60; PULSE 75; RESP 18; TEMP 36.6; O2SAT 95
[2025-07-10] MEDS: Aspirin E.C. 81 MG Tablet PO (08:32)
[2025-07-10] MEDS: APIXABAN 5 MG TABLET PO ×2 (08:32→22:22)
[2025-07-10] MEDS: Magnesium Chloride 64 MG Delay Rel.Tablet PO (08:34)
[2025-07-10] MEDS: Cholecalciferol (VIT D3) 25 MCG TABLET (1,000 UNITS) 50 MCG PO (08:34)
--- NOTE | 2025-07-10 09:37 | PCM.PN.HOSP ---
Subjective Subjective Doing well, no issues overnight. Tolerated dialysis and had some fluid taken off yesterday Objective Data Objective Data Vital Signs: Vital Signs Temp Pulse Resp BP Pulse Ox O2 Del Method O2 Flow Rate 98 F 75 18 105/60 95 Room Air 1 07/10/25 08:26 07/10/25 08:26 07/10/25 08:26 07/10/25 08:26 07/10/25 08:26 07/10/25 08:26 07/07/25 02:26 Oxygen Flow Rate (L/min) 1 Oxygen Delivery Method Room Air Weight: 234 lb 12.677 oz Body Mass Index (BMI) 34.7 Intake & Output: Intake and Output for Last 24 Hours 07/09/25 07/10/25 07/11/25 03:59 03:59 02:59 Output Total 2400 / 2400 Balance -2400 / -2400 Lab / Micro Data 07/10/25 03:30 07/10/25 03:30 Labs: Laboratory Results - last 24 hr 07/09/25 11:13: POC Glucose 149 H 07/09/25 16:41: POC Glucose 156 H 07/09/25 22:03: POC Glucose 240 H 07/10/25 03:30: WBC 7.3, RBC 2.82 L, Hgb 9.0 L, Hct 28.2 L, MCV 100.0 H, MCH 31.9, MCHC 31.9 L D, RDW Std Deviation 64.8 H, RDW Coeff of Whitney 17.6 H, Plt Count 202, MPV 10.8, Immature Gran % (Auto) 1.100 H, Neut % (Auto) 73.6 H, Lymph % (Auto) 11.0 L, [place] % (Auto) 10.3 H, Eos % (Auto) 3.2, Baso % (Auto) 0.8, Absolute Neuts (auto) 5.4, Absolute Lymphs (auto) 0.80 L, Nucleated RBC % 0.3, Sodium 133, Potassium 3.7, Chloride 101, Carbon Dioxide 21.6, Anion Gap 11, BUN 22 H, Creatinine 4.30 H, Estim Creat Clear Calc 17.85 L, Est GFR (MDRD) Non-Af 14 L, BUN/Creatinine Ratio 5.1 L, Glucose 185 H, Calcium 8.0 07/10/25 06:16: POC Glucose 158 H Physical Exam Narrative General: Alert, Oriented x3, Cooperative, No apparent distress HEENT: Atraumatic, PERRLA, EOMI, Normocephalic Oral: Moist Mucosa Neck: Supple, No JVD Lungs: Diminished, Normal air movement, No rhonchi, No wheeze, No rales Cardiovascular: Regular rate, Regular Rhythm, Normal S1, Normal S2, No murmurs Abdomen: Soft, Non Tender, Non-Distended, No Hepato-splenomegaly Extremities: Edema, Capillary Refill Less than 3 Seconds, left upper extremity is wrapped Skin: No rashes, No breakdown Musculoskeletal: No Tenderness to Palpation of Joints or Extremities Neurological: No focal neurological deficits, moves all extremities, neurological function appears to be at baseline Psych/Mental Status: Normal Affect, Appropriate Assessment & Plan Assessment/Plan (1) ESRD (end stage renal disease): (2) Frequent falls: PLAN: Plan 1. DM2 with ESRD on dialysis with generalized weakness and frequent falls ?Sliding scale insulin ? Accu-Cheks ? Will monitor make adjustments as necessary ? Appreciate nephrology assistance with dialysis ? Continue with midodrine to 20 mg p.o. 3 times daily ? Appreciate vascular surgery's assistance ? Appreciate general surgery's removal of the PD catheter 07/09/2025 2. Paroxysmal A-fib/essential HTN/HLD/history of CVA ? Had an MCA CVA on the right status post thrombectomy at [facility] with continued left-sided weakness ? Continue with his amiodarone plus aspirin and Eliquis ? Continue with Crestor ? Given his hypotension we will hold torsemide 3. Anxiety/depression ? Stable ? Continue with his home medications 4. Suspected seizure disorder ? Continue zonisamide ? Stable 5. Iron deficiency anemia with anemia of chronic disease ? Continue with his iron supplementation ? B12 and folate levels are normal recently ? Transfused 2 units 06/28/2025 6. BPH with obstruction ? Stable ? Continue with his home medications 7. GERD ? Stable ? Continue PPI DVT: Eliquis Charges/Coding Visit Charges Inpatient E&M: 59360 Subs Hosp L2
[2025-07-10 11:40] VITALS: BP 85/56; PULSE 76; RESP 18; TEMP 36.8; O2SAT 95
[2025-07-10 17:10] VITALS: BP 111/66; PULSE 74; RESP 18; TEMP 36.8; O2SAT 97
[2025-07-10 21:46] VITALS: BP 93/50; PULSE 79; RESP 20; TEMP 36.9; O2SAT 99
[2025-07-10] MEDS: Insulin Glargine-YFGN 100 UNIT/ML Pen 18 UNIT SC (22:22)
[2025-07-10] MEDS: OLANZapine 5 MG/TAB TAB.RAPDIS PO (22:22)
[2025-07-11 05:40] VITALS: BP 89/52; PULSE 92; RESP 20; TEMP 36.6; O2SAT 93
[2025-07-11 06:00] VITALS: BMI 35.5
[2025-07-11 07:12] LABS: Hematocrit 26.5 % (40-54); Hemoglobin 8.8 g/dL (13.0-16.5); Immature Granulocytes Count 0.060 X10^3/uL (0.0-0.0); Mean Corp Hgb Conc 33.2 g/dL (32-36); Mean Corpuscular Volume 97.1 fL (80-94); Mean Platelet Vol. 10.6 fl (6.2-12.0); NRBC Flagged by Analyzer 0 % (0-5); Platelet Count 208 K/mm3 (150-450); RBC Distribution Width CV 17.4 % (11.6-14.6); RBC Distribution Width SD 61.7 fl (35.1-43.9); Red Blood Count 2.73 M/mm3 (4.6-6.2); White Blood Count 6.2 K/mm3 (4.4-11.0)
[2025-07-11 07:36] LABS: Anion Gap 11 (5-15); BUN 32 mg/dL (4-19); BUN/Creat Ratio 6.1 RATIO (10-20); Calcium,Total 8.0 mg/dL (7.6-11.0); Carbon Dioxide 22.0 mmol/L (21.0-32.0); Chloride 102 mmol/L (98-108); Estimated Creatinine Clearance 14.70 ml/min (50-250); Glucose 168 mg/dL (70-99); Potassium 3.6 mmol/L (3.3-5.1)
[2025-07-11 07:52] VITALS: O2SAT 98
--- NOTE | 2025-07-11 08:46 | PCM.PN.HOSP ---
Subjective Subjective No issues overnight Objective Data Objective Data Vital Signs: Vital Signs Temp Pulse Resp BP Pulse Ox O2 Del Method O2 Flow Rate 97.9 F 92 20 H 89/52 L 93 Room Air 1 07/11/25 05:40 07/11/25 05:40 07/11/25 05:40 07/11/25 05:40 07/11/25 05:40 07/11/25 05:40 07/07/25 02:26 Oxygen Flow Rate (L/min) 1 Oxygen Delivery Method Room Air Weight: 240 lb 1.334 oz Body Mass Index (BMI) 35.5 Intake & Output: Intake and Output for Last 24 Hours 07/10/25 07/11/25 07/12/25 03:59 02:59 03:59 Intake Total 150 / 150 100 / 100 Output Total 2400 / 2400 0 / 0 0 / 0 Balance -2400 / -2400 150 / 150 100 / 100 Lab / Micro Data 07/11/25 06:30 07/11/25 06:30 Labs: Laboratory Results - last 24 hr 07/10/25 10:55: POC Glucose 168 H 07/10/25 16:52: POC Glucose 256 H 07/10/25 22:17: POC Glucose 286 H 07/11/25 06:07: POC Glucose 165 H 07/11/25 06:30: WBC 6.2, RBC 2.73 L, Hgb 8.8 L, Hct 26.5 L, MCV 97.1 H, MCH 32.2 H, MCHC 33.2, RDW Std Deviation 61.7 H, RDW Coeff of Whitney 17.4 H, Plt Count 208, MPV 10.6, Immature Gran % (Auto) 1.000 H, Neut % (Auto) 71.5 H, Lymph % (Auto) 9.9 L, [place] % (Auto) 12.7 H, Eos % (Auto) 4.2, Baso % (Auto) 0.7, Absolute Neuts (auto) 4.4, Absolute Lymphs (auto) 0.61 L, Nucleated RBC % 0, Sodium 135, Potassium 3.6, Chloride 102, Carbon Dioxide 22.0, Anion Gap 11, BUN 32 H, Creatinine 5.28 H, Estim Creat Clear Calc 14.70 L, Est GFR (MDRD) Non-Af 11 L, BUN/Creatinine Ratio 6.1 L, Glucose 168 H, Calcium 8.0 Physical Exam Narrative General: Alert, Oriented x3, Cooperative, No apparent distress HEENT: Atraumatic, PERRLA, EOMI, Normocephalic Oral: Moist Mucosa Neck: Supple, No JVD Lungs: Diminished, Normal air movement, No rhonchi, No wheeze, No rales Cardiovascular: Regular rate, Regular Rhythm, Normal S1, Normal S2, No murmurs Abdomen: Soft, Non Tender, Non-Distended, No Hepato-splenomegaly Extremities: Edema, Capillary Refill Less than 3 Seconds, left upper extremity is wrapped Skin: No rashes, No breakdown Musculoskeletal: No Tenderness to Palpation of Joints or Extremities Neurological: No focal neurological deficits, moves all extremities, neurological function appears to be at baseline Psych/Mental Status: Normal Affect, Appropriate Assessment & Plan Assessment/Plan (1) ESRD (end stage renal disease): (2) Frequent falls: PLAN: Plan 1. DM2 with ESRD on dialysis with generalized weakness and frequent falls ?Sliding scale insulin ? Accu-Cheks ? Will monitor make adjustments as necessary ? Appreciate nephrology assistance with dialysis ? Continue with midodrine to 20 mg p.o. 3 times daily ? Appreciate vascular surgery's assistance ? Appreciate general surgery's removal of the PD catheter 07/09/2025 ? Pending pre-CERT 2. Paroxysmal A-fib/essential HTN/HLD/history of CVA ? Had an MCA CVA on the right status post thrombectomy at [facility] with continued left-sided weakness ? Continue with his amiodarone plus aspirin and Eliquis ? Continue with Crestor ? Given his hypotension we will hold torsemide 3. Anxiety/depression ? Stable ? Continue with his home medications 4. Suspected seizure disorder ? Continue zonisamide ? Stable 5. Iron deficiency anemia with anemia of chronic disease ? Continue with his iron supplementation ? B12 and folate levels are normal recently ? Transfused 2 units 06/28/2025 6. BPH with obstruction ? Stable ? Continue with his home medications 7. GERD ? Stable ? Continue PPI DVT: Eliquis Charges/Coding Visit Charges Inpatient E&M: 13546 Subs Hosp L1 Reason for DC delay: Precert pending from insurance
[2025-07-11 10:13] VITALS: BP 116/55; PULSE 99; RESP 18; TEMP 36.2; O2SAT 96
[2025-07-11] MEDS: APIXABAN 5 MG TABLET PO ×2 (10:16→22:30)
[2025-07-11] MEDS: Magnesium Chloride 64 MG Delay Rel.Tablet PO (10:17)
[2025-07-11] MEDS: Aspirin E.C. 81 MG Tablet PO (10:17)
[2025-07-11] MEDS: Cholecalciferol (VIT D3) 25 MCG TABLET (1,000 UNITS) 50 MCG PO (10:25)
[2025-07-11 16:08] VITALS: BP 137/58; PULSE 95; RESP 20; TEMP 36.7; O2SAT 98
--- NOTE | 2025-07-11 16:54 | PCM.PN.REN ---
Subjective Subjective no new complaints Objective Data Objective Data Vital Signs: Vital Signs Temp Pulse Resp BP Pulse Ox O2 Del Method O2 Flow Rate 98.0 F 95 20 H 137/58 H 98 Room Air 1 07/11/25 16:08 07/11/25 16:08 07/11/25 16:08 07/11/25 16:08 07/11/25 16:08 07/11/25 16:08 07/07/25 02:26 Oxygen Flow Rate (L/min) 1 Oxygen Delivery Method Room Air Weight: 108.9 kg Body Mass Index (BMI) 35.5 Intake & Output: Intake and Output for Last 24 Hours 07/09/25 07/10/25 07/11/25 23:59 23:59 22:59 Intake Total 500 / 500 Output Total 2400 / 2400 0 / 0 Balance -2400 / -2400 500 / 500 Lab / Micro Data 07/11/25 06:30 07/11/25 06:30 Labs: Laboratory Results - last 24 hr 07/10/25 22:17: POC Glucose 286 H 07/11/25 06:07: POC Glucose 165 H 07/11/25 06:30: WBC 6.2, RBC 2.73 L, Hgb 8.8 L, Hct 26.5 L, MCV 97.1 H, MCH 32.2 H, MCHC 33.2, RDW Std Deviation 61.7 H, RDW Coeff of Whitney 17.4 H, Plt Count 208, MPV 10.6, Immature Gran % (Auto) 1.000 H, Neut % (Auto) 71.5 H, Lymph % (Auto) 9.9 L, [place] % (Auto) 12.7 H, Eos % (Auto) 4.2, Baso % (Auto) 0.7, Absolute Neuts (auto) 4.4, Absolute Lymphs (auto) 0.61 L, Nucleated RBC % 0, Sodium 135, Potassium 3.6, Chloride 102, Carbon Dioxide 22.0, Anion Gap 11, BUN 32 H, Creatinine 5.28 H, Estim Creat Clear Calc 14.70 L, Est GFR (MDRD) Non-Af 11 L, BUN/Creatinine Ratio 6.1 L, Glucose 168 H, Calcium 8.0 07/11/25 10:35: POC Glucose 166 H Physical Exam Narrative Alert and oriented x 3, no apparent distress S1, S2, RRR Diminished breath sounds, no rales or rhonchi. On room air Abdomen soft, rounded. PD catheter intact ++ Pitting edema bilateral lower legs. Edema noted to bilateral arms Left arm with Mikie wrap intact. Positive bruit auscultated thru Mikie wrap Tunneled hemodialysis catheter accessed for hemodialysis. Dressing clean, dry and intact Assessment & Plan Assessment/Plan (1) ESRD (end stage renal disease): PLAN: Plan This is a 75-year-old male with past medical history significant for ESRD, presented emergency room yesterday for weakness and falls. - ESRD on hemodialysis via tunneled hemodialysis catheter. Dialysis days Saturday. HD today HD MWF schedule PD catheter has been removed
[2025-07-11 22:00] VITALS: BP 129/80; PULSE 92; RESP 18; TEMP 36.6; O2SAT 98
[2025-07-11] MEDS: Insulin Glargine-YFGN 100 UNIT/ML Pen 18 UNIT SC (22:31)
[2025-07-11] MEDS: OLANZapine 5 MG/TAB TAB.RAPDIS PO (22:43)
[2025-07-12] VITALS (13 sets, daily range): BP systolic 83–121; BP diastolic 55–72; PULSE 93–104; RESP 14–19; TEMP 36.4–36.9; O2SAT 96–99; BMI 35.6; BMI 34.8
[2025-07-12 07:03] LABS: Hematocrit 26.0 % (40-54); Hemoglobin 8.8 g/dL (13.0-16.5); Immature Granulocytes Count 0.040 X10^3/uL (0.0-0.0); Mean Corp Hgb Conc 33.8 g/dL (32-36); Mean Corpuscular Volume 96.7 fL (80-94); Mean Platelet Vol. 10.1 fl (6.2-12.0); NRBC Flagged by Analyzer 0 % (0-5); Platelet Count 216 K/mm3 (150-450); RBC Distribution Width CV 17.5 % (11.6-14.6); RBC Distribution Width SD 60.8 fl (35.1-43.9); Red Blood Count 2.69 M/mm3 (4.6-6.2); White Blood Count 6.7 K/mm3 (4.4-11.0)
[2025-07-12 07:33] LABS: Anion Gap 13 (5-15); BUN 43 mg/dL (4-19); BUN/Creat Ratio 6.9 RATIO (10-20); Calcium,Total 8.0 mg/dL (7.6-11.0); Carbon Dioxide 19.6 mmol/L (21.0-32.0); Chloride 99 mmol/L (98-108); Estimated Creatinine Clearance 12.48 ml/min (50-250); Glucose 210 mg/dL (70-99); Potassium 3.9 mmol/L (3.3-5.1)
[2025-07-12] MEDS: 0.9% Normal Saline 1,000 ML IV.SOLN. 1000 ML OPERA.SITE (08:09)
[2025-07-12] MEDS: 0.9% Saline Lock 10 ML Syringe IV ×2 (08:09→11:49)
[2025-07-12] MEDS: PureFlow B 3K Dialysis Soln 1 BAG 6 BAG PF (08:10)
--- NOTE | 2025-07-12 08:33 | PCM.PN.HOSP ---
Subjective Subjective Doing well, no issues overnight. Little bit flat but I think it is related to just being stuck in the hospital for 6 days Objective Data Objective Data Vital Signs: Vital Signs Temp Pulse Resp BP Pulse Ox O2 Del Method O2 Flow Rate 98.4 F 96 15 105/64 96 Room Air 1 07/12/25 07:45 07/12/25 08:20 07/12/25 08:20 07/12/25 08:20 07/12/25 07:45 07/12/25 08:20 07/07/25 02:26 Oxygen Flow Rate (L/min) 1 Oxygen Delivery Method Room Air Weight: 240 lb 15.444 oz Body Mass Index (BMI) 35.6 Intake & Output: Intake and Output for Last 24 Hours 07/11/25 07/12/25 07/13/25 02:59 03:59 03:59 Intake Total 150 / 150 590 / 590 Output Total 0 / 0 0 / 0 Balance 150 / 150 590 / 590 Lab / Micro Data 07/12/25 06:41 07/12/25 06:41 Labs: Laboratory Results - last 24 hr 07/11/25 10:35: POC Glucose 166 H 07/11/25 16:13: POC Glucose 206 H 07/11/25 22:28: POC Glucose 257 H 07/12/25 06:18: POC Glucose 181 H 07/12/25 06:41: WBC 6.7, RBC 2.69 L, Hgb 8.8 L, Hct 26.0 L, MCV 96.7 H, MCH 32.7 H, MCHC 33.8, RDW Std Deviation 60.8 H, RDW Coeff of Whitney 17.5 H, Plt Count 216, MPV 10.1, Immature Gran % (Auto) 0.600, Neut % (Auto) 71.0 H, Lymph % (Auto) 11.4 L, Grant % (Auto) 13.4 H, Eos % (Auto) 3.3, Baso % (Auto) 0.3, Absolute Neuts (auto) 4.8, Absolute Lymphs (auto) 0.77 L, Nucleated RBC % 0, Sodium 131 L, Potassium 3.9, Chloride 99, Carbon Dioxide 19.6 L, Anion Gap 13, BUN 43 H, Creatinine 6.23 H, Estim Creat Clear Calc 12.48 L, Est GFR (MDRD) Non-Af 9 L, BUN/Creatinine Ratio 6.9 L, Glucose 210 H, Calcium 8.0 Physical Exam Narrative General: Alert, Oriented x3, Cooperative, No apparent distress HEENT: Atraumatic, PERRLA, EOMI, Normocephalic Oral: Moist Mucosa Neck: Supple, No JVD Lungs: Diminished, Normal air movement, No rhonchi, No wheeze, No rales Cardiovascular: Regular rate, Regular Rhythm, Normal S1, Normal S2, No murmurs Abdomen: Soft, Non Tender, Non-Distended, No Hepato-splenomegaly Extremities: Edema, Capillary Refill Less than 3 Seconds, left upper extremity is wrapped Skin: No rashes, No breakdown Musculoskeletal: No Tenderness to Palpation of Joints or Extremities Neurological: No focal neurological deficits, moves all extremities, neurological function appears to be at baseline Psych/Mental Status: Flat Assessment & Plan Assessment/Plan (1) ESRD (end stage renal disease): (2) Frequent falls: PLAN: Plan 1. 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 Accu-Cheks ? Will monitor make adjustments as necessary ? Appreciate nephrology assistance with dialysis ? Continue with midodrine to 20 mg p.o. 3 times daily ? Appreciate vascular surgery's assistance ? Appreciate general surgery's removal of the PD catheter 07/09/2025 ? Pending pre-CERT 2. Paroxysmal A-fib/essential HTN/HLD/history of CVA ? 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 Continue with his amiodarone plus aspirin and Eliquis ? Continue with Crestor ? Given his hypotension we will hold torsemide 3. Anxiety/depression ? Stable ? Continue with his home medications 4. Suspected seizure disorder ? Continue zonisamide ? Stable 5. Iron deficiency anemia with anemia of chronic disease ? Continue with his iron supplementation ? B12 and folate levels are normal recently ? Transfused 2 units 06/28/2025 6. BPH with obstruction ? Stable ? Continue with his home medications 7. GERD ? Stable ? Continue PPI DVT: Eliquis Charges/Coding Visit Charges Inpatient E&M: 38961 Subs Hosp L1 Reason for DC delay: Precert pending from insurance
--- NOTE | 2025-07-12 08:47 | CASEMGMT ---
Discharge Planning Updates sent via [facility] to [place]. Precert remains pending. Zakia Valentine DC Planning Asst.
--- NOTE | 2025-07-12 11:41 | CASEMGMT ---
Discharge Planning Msg rec'd from [place] that precert cannot move forward until previous snf ([facility]) withdraws theirs (which was denied d/t being [id number]). left for Norma @ [facility] with return call. Norma stated that she emailed [employer] and requested that they reach out to insurance to sort out. SW updated. Zakia Valentine DC Planning Asst.
--- NOTE | 2025-07-12 11:44 | PCM.PN.REN ---
Subjective Subjective Patient resting in bed. Seen at end of hemodialysis session. Tolerated fluid removal with dialysis today. Objective Data Objective Data Vital Signs: Vital Signs Temp Pulse Resp BP Pulse Ox O2 Del Method O2 Flow Rate 98.4 F 98 14 84/63 L 96 Room Air 1 07/12/25 07:45 07/12/25 11:13 07/12/25 11:13 07/12/25 11:13 07/12/25 07:45 07/12/25 10:47 07/07/25 02:26 Oxygen Flow Rate (L/min) 1 Oxygen Delivery Method Room Air Weight: 109.3 kg Body Mass Index (BMI) 35.6 Intake & Output: Intake and Output for Last 24 Hours 07/10/25 07/11/25 07/12/25 23:59 22:59 23:59 Intake Total 740 / 740 Output Total 0 / 0 Balance 740 / 740 Lab / Micro Data 07/12/25 06:41 07/12/25 06:41 Labs: Laboratory Results - last 24 hr 07/11/25 10:35: POC Glucose 166 H 07/11/25 16:13: POC Glucose 206 H 07/11/25 22:28: POC Glucose 257 H 07/12/25 06:18: POC Glucose 181 H 07/12/25 06:41: WBC 6.7, RBC 2.69 L, Hgb 8.8 L, Hct 26.0 L, MCV 96.7 H, MCH 32.7 H, MCHC 33.8, RDW Std Deviation 60.8 H, RDW Coeff of Whitney 17.5 H, Plt Count 216, MPV 10.1, Immature Gran % (Auto) 0.600, Neut % (Auto) 71.0 H, Lymph % (Auto) 11.4 L, Baker % (Auto) 13.4 H, Eos % (Auto) 3.3, Baso % (Auto) 0.3, Absolute Neuts (auto) 4.8, Absolute Lymphs (auto) 0.77 L, Nucleated RBC % 0, Sodium 131 L, Potassium 3.9, Chloride 99, Carbon Dioxide 19.6 L, Anion Gap 13, BUN 43 H, Creatinine 6.23 H, Estim Creat Clear Calc 12.48 L, Est GFR (MDRD) Non-Af 9 L, BUN/Creatinine Ratio 6.9 L, Glucose 210 H, Calcium 8.0 Physical Exam Narrative Alert and oriented x 3, no apparent distress S1, S2, RRR Diminished breath sounds, no rales or rhonchi. On room air Abdomen soft, rounded ++ Pitting edema bilateral lower legs. Edema noted to bilateral arms Left arm with Mikie wrap intact. Positive bruit auscultated thru Mikie wrap Tunneled hemodialysis catheter accessed for hemodialysis. Dressing clean, dry and intact Assessment & Plan Assessment/Plan (1) ESRD (end stage renal disease): PLAN: Plan This is a 75-year-old male with past medical history significant for ESRD, presented emergency room yesterday for weakness and falls. - ESRD on hemodialysis via tunneled hemodialysis catheter. Dialysis days Saturday. HD today, attempting ~2.5-3l UF with HD today. PD catheter has been removed. Discharge planning in progress to [facility] for therapy. Assessment and plan reviewed with Dr. Sanchez.
[2025-07-12] MEDS: Aspirin E.C. 81 MG Tablet PO (12:32)
[2025-07-12] MEDS: Magnesium Chloride 64 MG Delay Rel.Tablet PO (12:33)
[2025-07-12] MEDS: APIXABAN 5 MG TABLET PO ×2 (12:33→23:14)
[2025-07-12] MEDS: Cholecalciferol (VIT D3) 25 MCG TABLET (1,000 UNITS) 50 MCG PO (12:35)
--- NOTE | 2025-07-12 12:38 | CASEMGMT ---
ANA PAULA OCHOA into pt room, pt and present with pt nurse. Pt and aware that we are awaiting precert for the SNF. Pt asks if she can change her mind and go to [facility]. She states she does not know if this is what she wants. She requests ANA PAULA OCHOA come back.
[2025-07-12] MEDS: OLANZapine 5 MG/TAB TAB.RAPDIS PO (23:16)
[2025-07-12] MEDS: Insulin Glargine-YFGN 100 UNIT/ML Pen 18 UNIT SC (23:25)
[2025-07-13 02:16] VITALS: BP 96/65; PULSE 85; RESP 22; TEMP 36.8; O2SAT 96
[2025-07-13 02:17] VITALS: BMI 35.6
[2025-07-13] MEDS: 0.9% Saline Lock 10 ML Syringe IV (02:20)
[2025-07-13 07:33] VITALS: BP 88/58; PULSE 95; RESP 16; TEMP 36.6; O2SAT 95
[2025-07-13] MEDS: Aspirin E.C. 81 MG Tablet PO (07:46)
--- NOTE | 2025-07-13 08:49 | PCM.PN.HOSP ---
Subjective Subjective No issues overnight, pending pre-CERT Objective Data Objective Data Vital Signs: Vital Signs Temp Pulse Resp BP Pulse Ox O2 Del Method O2 Flow Rate 97.8 F 95 16 88/58 L 95 Room Air 1 07/13/25 07:33 07/13/25 07:33 07/13/25 07:33 07/13/25 07:33 07/13/25 07:33 07/13/25 07:33 07/07/25 02:26 Oxygen Flow Rate (L/min) 1 Oxygen Delivery Method Room Air Weight: 240 lb 4.862 oz Body Mass Index (BMI) 35.6 Intake & Output: Intake and Output for Last 24 Hours 07/12/25 07/13/25 07/14/25 03:59 03:59 03:59 Intake Total 590 / 590 50 / 50 Output Total 0 / 0 2950 / 2950 Balance 590 / 590 -2950 / -2950 50 / 50 Lab / Micro Data 07/12/25 06:41 07/12/25 06:41 Labs: Laboratory Results - last 24 hr 07/12/25 12:01: POC Glucose 143 H 07/12/25 16:08: POC Glucose 266 H 07/12/25 23:21: POC Glucose 339 H 07/13/25 05:58: POC Glucose 210 H Physical Exam Narrative General: Alert, Oriented x3, Cooperative, No apparent distress HEENT: Atraumatic, PERRLA, EOMI, Normocephalic Oral: Moist Mucosa Neck: Supple, No JVD Lungs: Diminished, Normal air movement, No rhonchi, No wheeze, No rales Cardiovascular: Regular rate, Regular Rhythm, Normal S1, Normal S2, No murmurs Abdomen: Soft, Non Tender, Non-Distended, No Hepato-splenomegaly Extremities: Edema, Capillary Refill Less than 3 Seconds, left upper extremity is wrapped Skin: No rashes, No breakdown Musculoskeletal: No Tenderness to Palpation of Joints or Extremities Neurological: No focal neurological deficits, moves all extremities, neurological function appears to be at baseline Psych/Mental Status: Flat Assessment & Plan Assessment/Plan (1) ESRD (end stage renal disease): (2) Frequent falls: PLAN: Plan 1. 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 Accu-Cheks ? Will monitor make adjustments as necessary ? Appreciate nephrology assistance with dialysis ? Continue with midodrine to 20 mg p.o. 3 times daily ? Appreciate vascular surgery's assistance, they do not feel any intervention to the fistula is warranted at this time ? Appreciate general surgery's removal of the PD catheter 07/09/2025 ? Pending pre-CERT 2. Paroxysmal A-fib/essential HTN/HLD/history of CVA ? 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 Continue with his amiodarone plus aspirin and Eliquis ? Continue with Crestor ? Given his hypotension we will hold torsemide 3. Anxiety/depression ? Stable ? Continue with his home medications 4. Suspected seizure disorder ? Continue zonisamide ? Stable 5. Iron deficiency anemia with anemia of chronic disease ? Continue with his iron supplementation ? B12 and folate levels are normal recently ? Transfused 2 units 06/28/2025 6. BPH with obstruction ? Stable ? Continue with his home medications 7. GERD ? Stable ? Continue PPI DVT: Michele Charges/Coding Visit Charges Inpatient E&M: 61407 Subs Hosp L1 Reason for DC delay: Precert pending from insurance
--- NOTE | 2025-07-13 10:01 | PCM.TXEXTCAR ---
Diet Diet Order/Speech Therapy: INPATIENT Hospital Diet / Speech Therapy Order(s) 07/12/25 14:47 Carb [Diet: Carbohydrate Controlled] Dietary Modifications:: No Added Salt Type of Dietary Supplement:: Nepro Diet Comments: 240mL Nepro and stateless yogurt w/ all meals Routine Orders/Code Status Routine Lab Work: CBC and BMP Code Status: Full Code DC O2, CPAP, BIPAP needs Home O2 Discharge instructions: No Wound(s) BUE: Wound Type: Abrasion L knee: Wound Type: Abrasion FOREHEAD: Wound Type: Abrasion LEFT BUTTOCK: Wound Type: sheering LEFT ARM: Wound Type: weeping from edema rt arm: Wound Type: weeping from edema RLQ Drain removal: Wound Type: Perineal Dialysis- removed BLE: Wound Type: weeping from edema Therapies Physical Therapy: Eval and Treat Occupational Therapy: Eval and Treat Problem/Diagnosis (1) ESRD (end stage renal disease): Status: Inactive Code(s): N18.6 - End stage renal disease (2) Frequent falls: Status: Acute Code(s): R29.6 - Repeated falls Plan 1. 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 Accu-Cheks ? Will monitor make adjustments as necessary ? Appreciate nephrology assistance with dialysis ? Continue with midodrine to 20 mg p.o. 3 times daily ? Appreciate vascular surgery's assistance, they do not feel any intervention to the fistula is warranted at this time ? Appreciate general surgery's removal of the PD catheter 07/09/2025 ? Pending pre-CERT 2. Paroxysmal A-fib/essential HTN/HLD/history of CVA ? 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 Continue with his amiodarone plus aspirin and Eliquis ? Continue with Crestor ? Given his hypotension we will hold torsemide 3. Anxiety/depression ? Stable ? Continue with his home medications 4. Suspected seizure disorder ? Continue zonisamide ? Stable 5. Iron deficiency anemia with anemia of chronic disease ? Continue with his iron supplementation ? B12 and folate levels are normal recently ? Transfused 2 units 06/28/2025 6. BPH with obstruction ? Stable ? Continue with his home medications 7. GERD ? Stable ? Continue PPI DVT: Eliquis Allergies/Procedures Done in Hospital Allergies rofecoxib Allergy (Severe, Verified 06/01/25 16:40) Swelling Procedures: Blood transfusion and Dialysis Type of Care/Length of Stay Estimated LOS: Convalescent Care Less Than 30 days Type of Care Needed: Skilled Rehab Potential: Good Prognosis: Good Additional Orders/Day of Discharge Day of Discharge: 07/13/25 Dietary and Speech Recommendations Dietitian Recommendations/Changes: Liberalize diet to CHO Control / No Added Salt to help maximize po intake Change 240mL Nepro and stateless yogurt w/ all meals for increased nutrition if consumed. Pt will maintain weight trends. Discharge Plan Admission Admit Date/Time: 07/06/25 00:07 Attending Provider: Vargas Mai Primary Care Provider: Lester Jarvis Consulting Providers: Jhon Morrow; Quan Garvey; Jose Luis Reddy Instructions Additional Instructions / Restrictions: Doxycycline was started on the outpatient side on 06/21/2025 for 28 days Discharge Orders/Prescriptions Prescriptions: New midodrine 5 mg Tablet 20 mg PO TIDCM Qty: 0 0RF Continued multivitamin [Daily Multi-Vitamin] Tablet 1 tab PO DAILY tamsulosin 0.4 mg capsule 0.4 mg PO BID docusate sodium 100 mg capsule 100 mg PO BID PRN (Reason: constipation) olanzapine 5 mg tablet 5 mg PO QHS omeprazole 40 mg capsule,delayed release(DR/EC) 40 mg PO QDAY zonisamide 50 mg capsule 50 mg PO BID sertraline 100 mg tablet 100 mg PO QDAY rosuvastatin 20 mg tablet 20 mg PO QDAY aspirin [Adult Low Dose Aspirin] 81 mg tablet,delayed release (DR/EC) 81 mg PO QDAY cholecalciferol (vitamin D3) 25 mcg (1,000 unit) tablet 50 mcg PO DAILY buspirone 15 mg tablet 15 mg PO TID ascorbic acid (vitamin C) 500 mg tablet 1,000 mg PO LUNCH acetaminophen 500 mg tablet 1,000 mg PO Q8H PRN PRN (Reason: Pain 1-10) Qty: 1 0RF fenofibrate 54 mg tablet 108 mg PO DAILY amiodarone 200 mg tablet 100 mg PO Q24H Rx Instructions: TAKE 1/2 TABLET 100MG finasteride 5 mg Tablet 5 mg PO QHS doxycycline hyclate 100 mg capsule 100 mg PO BID ondansetron HCl 4 mg tablet 2 mg PO Q8H insulin glargine [Lantus Solostar U-100 Insulin] 100 unit/mL (3 mL) insulin pen 18 unit subcut QHS Eliquis 5 mg tablet 5 mg PO BID magnesium 250 mg tablet 250 mg PO DAILY polyethylene glycol 3350 [ClearLax] 17 gram/dose powder 17 g PO DAILY PRN (Reason: constipation) dextrose 40 % gel 10 g PO Q15M PRN (Reason: hypoglycemia) Rx Instructions: until symptoms of low blood sugar are controlled insulin lispro [Humalog KwikPen Insulin] 100 unit/mL Insulin Pen 15 unit subcut DAILY@0800 Protocol: 4. Sliding Scale Insulin High-Med Dosing Condition: 150-199 mg/dl = 2 units Condition: 200-259 mg/dl = 4 units Condition: 260-324 mg/dl = 6 units Condition: 325-374 mg/dl = 8 units Condition: 375-409 mg/dl = 10 units Condition: 410-449 mg/dl = 11 units Condition: Greater than 449 call physician Protocol Text: - Use for Total Daily Dose of Insulin 56-80 units - Patient who are insulin resistant or septic HIGH MEDIUM DOSING ALGORITHM insulin lispro [Humalog KwikPen Insulin] 100 unit/mL insulin pen 17 unit subcut DAILY@1200 insulin lispro [Humalog KwikPen Insulin] 100 unit/mL insulin pen 19 unit subcut DAILY@1700 Discontinued midodrine 5 mg tablet 5 mg PO TID Rx Instructions: do not give last dose of day after 6PM or within 4 hrs of bedtime hold if sbp>110 or dbp >70 Referrals / Follow Up: Lester Jarvis MD [Primary Care Provider, Family Practice] Disposition Disposition (needs filled in before D/C Order can be placed): Custodial Facility
--- NOTE | 2025-07-13 10:05 | CASEMGMT ---
Received tc from [facility], she is aware that the plan is for pt to admit to [facility] this date and they have set up transport for dialysis for pt.
--- NOTE | 2025-07-13 10:10 | CASEMGMT ---
Received precert from insurance. Plan for pt to dc to [facility] today. 7000 completed and transport form. DC public health assistant to complete final dc plans.
[2025-07-13] MEDS: APIXABAN 5 MG TABLET PO (10:28)
[2025-07-13] MEDS: Magnesium Chloride 64 MG Delay Rel.Tablet PO (10:29)
[2025-07-13] MEDS: Cholecalciferol (VIT D3) 25 MCG TABLET (1,000 UNITS) 50 MCG PO (10:30)
--- NOTE | 2025-07-13 10:30 | PHA.DC_ITS ---
Pharmacy DC Med Reconciliation
--- NOTE | 2025-07-13 10:30 | PHA.DC.MR.R ---
Pharmacy [place] Med Reconciliation Pharmacy Service has performed discharge medication reconciliation for this patient. The patient's discharge medication list was reviewed for discrepancies and discrepancies were resolved. Medications at Discharge Home Medications multivitamin (Daily Multi-Vitamin tablet) 1 tab PO DAILY Supplement 02/12/22 tamsulosin 0.4 mg capsule 0.4 mg PO BID Urine retention 02/12/22 ascorbic acid (vitamin C) 500 mg tablet 1,000 mg PO LUNCH Supplement 02/28/23 acetaminophen 500 mg tablet 1,000 mg (2 x 500 mg) PO Q8H PRN PRN Pain 1-10 #1 TAB 03/15/23 buspirone 15 mg tablet 15 mg PO TID Mood 11/22/23 docusate sodium 100 mg capsule 100 mg PO BID PRN constipation 11/22/23 olanzapine 5 mg tablet 5 mg PO QHS mental health 11/22/23 omeprazole 40 mg capsule,delayed release 40 mg PO QDAY reflux 11/22/23 sertraline 100 mg tablet 100 mg PO QDAY mental health 11/22/23 zonisamide 50 mg capsule 50 mg PO BID seizures 11/22/23 aspirin 81 mg tablet,delayed release (Adult Low Dose Aspirin) 81 mg PO QDAY Cardiac 12/08/24 rosuvastatin 20 mg tablet 20 mg PO QDAY cholesterol 12/08/24 cholecalciferol (vitamin D3) 25 mcg (1,000 unit) tablet 50 mcg PO DAILY vitamin supplement 02/18/25 amiodarone 200 mg tablet 100 mg PO Q24H BP 03/26/25 fenofibrate 54 mg tablet 108 mg PO DAILY cholesterol 03/26/25 finasteride 5 mg tablet 5 mg PO QHS prostate 03/26/25 apixaban 5 mg tablet (Eliquis) 5 mg PO BID elequis 04/26/25 dextrose 40 % oral gel 10 g PO Q15M PRN hypoglycemia 04/26/25 doxycycline hyclate 100 mg capsule 100 mg PO BID infection 04/26/25 insulin glargine 100 unit/mL (3 mL) subcutaneous pen (Lantus Solostar U-100 Insulin) 18 unit subcut QHS Diabetes 04/26/25 insulin lispro 100 unit/mL subcutaneous pen (Humalog KwikPen (U-100) Insulin) 15 unit subcut DAILY@0800 SLIDINING SCALE 04/26/25 magnesium 250 mg tablet 250 mg PO DAILY SUPPLEMENT 04/26/25 ondansetron HCl 4 mg tablet 2 mg PO Q8H nausea and vomiting 04/26/25 polyethylene glycol 3350 17 gram/dose oral powder (ClearLax) 17 g PO DAILY PRN constipation 04/26/25 insulin lispro 100 unit/mL subcutaneous pen (Humalog KwikPen (U-100) Insulin) 17 unit subcut DAILY@1200 diabetes 07/01/25 insulin lispro 100 unit/mL subcutaneous pen (Humalog KwikPen (U-100) Insulin) 19 unit subcut DAILY@1700 diabetes 07/01/25 midodrine 5 mg tablet 20 mg (4 x 5 mg) PO TIDCM #0 tabs 07/13/25
--- NOTE | 2025-07-13 11:43 | PCM.DC.SUM ---
Providers Date of Admission: 07/06/25 Primary Care Physician: Dr. Lester Jarvis MD Consultations 07/06/25 01:07 Consult: Nephrology Routine Consulting Provider: Anuja Sanchez Reason for Consult: End-stage renal disease, dialysis EMERGENT Consult: No Notified: No Date Notified: 07/06/25 Time Notified: 00:13 07/08/25 08:56 Consult: Vascular Surgery Routine Consulting Provider: Quan Garvey Reason for Consult: Family concern of fistual LUE EMERGENT Consult: No MD Notified: Yes Date Notified: 07/08/25 Time Notified: 09:10 Method of Notification: Answering Service 07/08/25 15:39 Consult: General Surgery Routine Consulting Provider: Jose Luis Reddy Reason for Consult: PD catheter removal EMERGENT Consult: No MD Notified: Yes Date Notified: 07/08/25 Time Notified: 15:40 Method of Notification: Verbal Reason For Visit: GENERALIZED WEAKNESS, FREQUENT FALLS, END-STAGE Diagnosis Discharge Diagnosis (1) ESRD (end stage renal disease): Status: Inactive Code(s): N18.6 - End stage renal disease (2) Frequent falls: Status: Acute Code(s): R29.6 - Repeated falls Medications at Discharge Home Medications multivitamin (Daily Multi-Vitamin tablet) 1 tab PO DAILY Supplement 02/12/22 tamsulosin 0.4 mg capsule 0.4 mg PO BID Urine retention 02/12/22 ascorbic acid (vitamin C) 500 mg tablet 1,000 mg PO LUNCH Supplement 02/28/23 acetaminophen 500 mg tablet 1,000 mg (2 x 500 mg) PO Q8H PRN PRN Pain 1-10 #1 TAB 03/15/23 buspirone 15 mg tablet 15 mg PO TID Mood 11/22/23 docusate sodium 100 mg capsule 100 mg PO BID PRN constipation 11/22/23 olanzapine 5 mg tablet 5 mg PO QHS mental health 11/22/23 omeprazole 40 mg capsule,delayed release 40 mg PO QDAY reflux 11/22/23 sertraline 100 mg tablet 100 mg PO QDAY mental health 11/22/23 zonisamide 50 mg capsule 50 mg PO BID seizures 11/22/23 aspirin 81 mg tablet,delayed release (Adult Low Dose Aspirin) 81 mg PO QDAY Cardiac 12/08/24 rosuvastatin 20 mg tablet 20 mg PO QDAY cholesterol 12/08/24 cholecalciferol (vitamin D3) 25 mcg (1,000 unit) tablet 50 mcg PO DAILY vitamin supplement 02/18/25 amiodarone 200 mg tablet 100 mg PO Q24H BP 03/26/25 fenofibrate 54 mg tablet 108 mg PO DAILY cholesterol 03/26/25 finasteride 5 mg tablet 5 mg PO QHS prostate 03/26/25 apixaban 5 mg tablet (Eliquis) 5 mg PO BID elequis 04/26/25 dextrose 40 % oral gel 10 g PO Q15M PRN hypoglycemia 04/26/25 doxycycline hyclate 100 mg capsule 100 mg PO BID infection 04/26/25 insulin glargine 100 unit/mL (3 mL) subcutaneous pen (Lantus Solostar U-100 Insulin) 18 unit subcut QHS Diabetes 04/26/25 insulin lispro 100 unit/mL subcutaneous pen (Humalog KwikPen (U-100) Insulin) 15 unit subcut DAILY@0800 SLIDINING SCALE 04/26/25 magnesium 250 mg tablet 250 mg PO DAILY SUPPLEMENT 04/26/25 ondansetron HCl 4 mg tablet 2 mg PO Q8H nausea and vomiting 04/26/25 polyethylene glycol 3350 17 gram/dose oral powder (ClearLax) 17 g PO DAILY PRN constipation 04/26/25 insulin lispro 100 unit/mL subcutaneous pen (Humalog KwikPen (U-100) Insulin) 17 unit subcut DAILY@1200 diabetes 07/01/25 insulin lispro 100 unit/mL subcutaneous pen (Humalog KwikPen (U-100) Insulin) 19 unit subcut DAILY@1700 diabetes 07/01/25 midodrine 5 mg tablet 20 mg (4 x 5 mg) PO TIDCM #0 tabs 07/13/25 Hospital Course Operations - (Removal of peritoneal dialysis catheter) Procedures Blood transfusion and Dialysis Summary of Care Provided Minutes Spent on Discharge: 33 Hospital Course: Per HPI: VIVI SAINI, is a 75 M who presents to the emergency room with chief complaint of generalized weakness and frequent falls at home. Patient had 2 falls earlier today and feels he is unable to support himself safely at home. Patient has significant past medical history of end-stage renal disease and is dialysis dependent, last dialysis was Saturday and he seecarl Sanchez. Patient denies any chest pain, shortness of breath, fevers or chills, nausea vomiting or diarrhea at present time. Laboratory studies reveal white blood cell count of 8.0, hemoglobin 8.0, hematocrit 25.1, platelets 273, sodium 134, potassium 4.6, chloride 97, bicarb 14.1, BUN 43, creatinine 7.98, x-ray pelvis is negative, cervical spine CT negative, brain CT negative, chest x-ray negative for pneumonia. Patient will be admitted to general medical floor, nephrology consult for new dialysis and case management consult for rehab placement. Patient wishes to be full code verified. Hospital Course: 1. DM2 with ESRD on dialysis with generalized weakness and frequent falls/hyponatremia?75-year-old male presented to the hospital with generalized weakness and frequent falls. Had been on peritoneal dialysis which does not appear to be working as well as he would like and he was started on hemodialysis here in the hospital through a chest catheter on the right. His peritoneal dialysis catheter was ultimately removed and he was tolerating dialysis prior to discharge. His pressures are generally on the low side so his midodrine was increased by nephrology to 20 mg p.o. 3 times daily though we have been able to start getting some fluid off of him. Family was concerned as his left arm is edematous and he does have an AV fistula there that is mature. Vascular surgery was consulted because of family concern and they did not feel like there is anything left to do, they are reticent to ligate more veins and feel that at the moment he starts doing appropriate hemodialysis if edema will resolve. Wound care was consulted and had no recommendations, the site does not appear to be infected. He did receive 2 units PRBCs and his hemoglobin has since been stable at 8.8. I discussed with him the plan for possible discharge and he expressed understanding of the risks and benefits of going to the intermediate and would like to go. 2. Paroxysmal A-fib, essential pretension, hyperlipidemia, history of CVA status post thrombectomy, anxiety, depression, seizure disorder, iron deficiency anemia with anemia of chronic disease, BPH with obstruction, GERD are all chronic medical conditions which complicate his care. His home medications were continued where appropriate Physical Exam Narrative General: Alert, Oriented x3, Cooperative, No apparent distress HEENT: Atraumatic, PERRLA, EOMI, Normocephalic Oral: Moist Mucosa Neck: Supple, No JVD Lungs: Diminished, Normal air movement, No rhonchi, No wheeze, No rales Cardiovascular: Regular rate, Regular Rhythm, Normal S1, Normal S2, No murmurs Abdomen: Soft, Non Tender, Non-Distended, No Hepato-splenomegaly Extremities: Edema, Capillary Refill Less than 3 Seconds, left upper extremity is wrapped Skin: No rashes, No breakdown Musculoskeletal: No Tenderness to Palpation of Joints or Extremities Neurological: No focal neurological deficits, moves all extremities, neurological function appears to be at baseline Psych/Mental Status: Flat Weight / BMI Weight Weight: 240 lb 4.862 oz Body Mass Index (BMI) 35.6 ABG / Lab / Microbiology Data 07/12/25 06:41 07/12/25 06:41 Laboratory: Laboratory Results - last 24 hr 07/12/25 12:01: POC Glucose 143 H 07/12/25 16:08: POC Glucose 266 H 07/12/25 23:21: POC Glucose 339 H 07/13/25 05:58: POC Glucose 210 H D/C Instructions DC O2, CPAP, BIPAP Needs Home O2 Discharge instructions: No Meaningful Use Info Meaningful Use Meaningful Use Diagnoses (Choose all that apply): None applicable Discharge Plan Admission Admit Date/Time: 07/06/25 00:07 Attending Provider: Vargas Mai Primary Care Provider: Lester Jarvis Consulting Providers: Jhon Morrow; Quan Garvey; Jose Luis Reddy Instructions Additional Instructions / Restrictions: Doxycycline was started on the outpatient side on 06/21/2025 for 28 days Discharge Orders/Prescriptions Prescriptions: New midodrine 5 mg Tablet 20 mg PO TIDCM Qty: 0 0RF Continued multivitamin [Daily Multi-Vitamin] Tablet 1 tab PO DAILY tamsulosin 0.4 mg capsule 0.4 mg PO BID docusate sodium 100 mg capsule 100 mg PO BID PRN (Reason: constipation) olanzapine 5 mg tablet 5 mg PO QHS omeprazole 40 mg capsule,delayed release(DR/EC) 40 mg PO QDAY zonisamide 50 mg capsule 50 mg PO BID sertraline 100 mg tablet 100 mg PO QDAY rosuvastatin 20 mg tablet 20 mg PO QDAY aspirin [Adult Low Dose Aspirin] 81 mg tablet,delayed release (DR/EC) 81 mg PO QDAY cholecalciferol (vitamin D3) 25 mcg (1,000 unit) tablet 50 mcg PO DAILY buspirone 15 mg tablet 15 mg PO TID ascorbic acid (vitamin C) 500 mg tablet 1,000 mg PO LUNCH acetaminophen 500 mg tablet 1,000 mg PO Q8H PRN PRN (Reason: Pain 1-10) Qty: 1 0RF fenofibrate 54 mg tablet 108 mg PO DAILY amiodarone 200 mg tablet 100 mg PO Q24H Rx Instructions: TAKE 1/2 TABLET 100MG finasteride 5 mg Tablet 5 mg PO QHS doxycycline hyclate 100 mg capsule 100 mg PO BID ondansetron HCl 4 mg tablet 2 mg PO Q8H insulin glargine [Lantus Solostar U-100 Insulin] 100 unit/mL (3 mL) insulin pen 18 unit subcut QHS Eliquis 5 mg tablet 5 mg PO BID magnesium 250 mg tablet 250 mg PO DAILY polyethylene glycol 3350 [ClearLax] 17 gram/dose powder 17 g PO DAILY PRN (Reason: constipation) dextrose 40 % gel 10 g PO Q15M PRN (Reason: hypoglycemia) Rx Instructions: until symptoms of low blood sugar are controlled insulin lispro [Humalog KwikPen Insulin] 100 unit/mL Insulin Pen 15 unit subcut DAILY@0800 Protocol: 4. Sliding Scale Insulin High-Med Dosing Condition: 150-199 mg/dl = 2 units Condition: 200-259 mg/dl = 4 units Condition: 260-324 mg/dl = 6 units Condition: 325-374 mg/dl = 8 units Condition: 375-409 mg/dl = 10 units Condition: 410-449 mg/dl = 11 units Condition: Greater than 449 call physician Protocol Text: - Use for Total Daily Dose of Insulin 56-80 units - Patient who are insulin resistant or septic HIGH MEDIUM DOSING ALGORITHM insulin lispro [Humalog KwikPen Insulin] 100 unit/mL insulin pen 17 unit subcut DAILY@1200 insulin lispro [Humalog KwikPen Insulin] 100 unit/mL insulin pen 19 unit subcut DAILY@1700 Discontinued midodrine 5 mg tablet 5 mg PO TID Rx Instructions: do not give last dose of day after 6PM or within 4 hrs of bedtime hold if sbp>110 or dbp >70 Referrals / Follow Up: Lester Jarvis MD [Primary Care Provider, Family Practice] Disposition Disposition (needs filled in before D/C Order can be placed): Long-Term Facility Charges/Coding Visit Charges Inpatient E&M: 12673 Disch Hosp >30min
--- NOTE | 2025-07-13 11:58 | CASEMGMT ---
Discharge Planning Discharge orders, signed med list, and transport time sent via [facility] to [facility]. Physicians will transport pt by wheelchair at 2:30p. Nursing, RN CM, pt, and his updated. Zakia Valentine DC Planning Asst.
--- NOTE | 2025-07-13 13:05 | PCM.PN.REN ---
Subjective Subjective no new events Objective Data Objective Data Vital Signs: Vital Signs Temp Pulse Resp BP Pulse Ox O2 Del Method O2 Flow Rate 97.8 F 95 16 88/58 L 95 Room Air 1 07/13/25 07:33 07/13/25 07:33 07/13/25 07:33 07/13/25 07:33 07/13/25 07:33 07/13/25 07:33 07/07/25 02:26 Oxygen Flow Rate (L/min) 1 Oxygen Delivery Method Room Air Weight: 109 kg Body Mass Index (BMI) 35.6 Intake & Output: Intake and Output for Last 24 Hours 07/11/25 07/12/25 07/13/25 22:59 23:59 23:59 Intake Total 740 / 740 50 / 50 Output Total 0 / 0 2950 / 2950 Balance 740 / 740 -2950 / -2950 50 / 50 Lab / Micro Data 07/12/25 06:41 07/12/25 06:41 Labs: Laboratory Results - last 24 hr 07/12/25 16:08: POC Glucose 266 H 07/12/25 23:21: POC Glucose 339 H 07/13/25 05:58: POC Glucose 210 H 07/13/25 11:59: POC Glucose 311 H Physical Exam Narrative Alert and oriented x 3, no apparent distress S1, S2, RRR Diminished breath sounds, no rales or rhonchi. On room air Abdomen soft, rounded ++ Pitting edema bilateral lower legs. Edema noted to bilateral arms Left arm with Mikie wrap intact. Positive bruit auscultated thru Mikie wrap Tunneled hemodialysis catheter accessed for hemodialysis. Dressing clean, dry and intact Assessment & Plan Assessment/Plan (1) ESRD (end stage renal disease): PLAN: Plan This is a 75-year-old male with past medical history significant for ESRD, presented emergency room yesterday for weakness and falls. - ESRD on hemodialysis via tunneled hemodialysis catheter. mo plans
== END 2025-07-13 14:45 | disposition skilled nursing facility (03) | DRG 981 ==
LOC: ED 07-06 00:15 → MS3 07-06 01:03
PROVIDERS: Anesthesiology; Admitting Provider Family Medicine; Emergency Provider Emergency Medicine; PCP Family Medicine; Visit Provider Family Medicine
DX: I13.2 Hypertensive heart and chronic kidney disease with heart failure and with stage 5 chronic kidney disease, or end stage renal disease (principal); N18.6 End stage renal disease; E87.1 Hypo-osmolality and hyponatremia; N13.8 Other obstructive and reflux uropathy; D63.1 Anemia in chronic kidney disease; E11.22 Type 2 diabetes mellitus with diabetic chronic kidney disease; D50.9 Iron deficiency anemia, unspecified; G40.909 Epilepsy, unspecified, not intractable, without status epilepticus; I48.0 Paroxysmal atrial fibrillation; F32.A Depression, unspecified; E66.9 Obesity, unspecified; E11.65 Type 2 diabetes mellitus with hyperglycemia; Z79.4 Long term (current) use of insulin; E78.00 Pure hypercholesterolemia, unspecified; Z99.2 Dependence on renal dialysis; K21.9 Gastro-esophageal reflux disease without esophagitis; F41.9 Anxiety disorder, unspecified; E11.69 Type 2 diabetes mellitus with other specified complication; I25.2 Old myocardial infarction; I95.89 Other hypotension; R53.1 Weakness; N40.1 Benign prostatic hyperplasia with lower urinary tract symptoms; R29.6 Repeated falls; Z68.35 Body mass index [BMI] 35.0-35.9, adult; Z79.01 Long term (current) use of 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s; Z79.899 Other long term (current) drug therapy; Z86.73 Personal history of transient ischemic attack (TIA), and cerebral infarction without residual deficits
CPT/HCPCS: 36415; 70450; 71045; 72125; 72170; 73562; 80048; 80076; 82803; 82962; 83735; 84100; 85014; 85018; 85025; 85610; 85730; 86850; 86900; 86901; 90937; 93005; 97116; 97163; 97167; 97530; 97535; 99285; P9016; P9047; A4216; G0257; J2405; Q5106